=== PATIENT | male | born 1940 | race Caucasian/White ===

== ENCOUNTER 2016-08-24 21:44 | Observation (INO) | payer OTHER ==
[~2016-08-24] VITALS: Ht 177.8 cm; Wt 116.6 kg
[~2016-08-24 21:44] MED LIST changes: -ALPR-412 PO; -APR50 PO; -CHOL2000 PO; -FAMO20TA12 PO; -FURO80TA63 PO; -IMDSR60 PO; -LSN5 PO; -MAGN500T4 PO; -MRLP17X PO; -POLY335019 PO; -POTA20TA16 PO
--- NOTE | 2016-08-24 22:44 | EMERGENCY ROOM VISIT NOTE ---
History Report prepared by Mavis: John Grover Under the Supervision of: Dr. Marry Torre D.O. First contact with patient: 22:16 Chief Complaint: CHEST PAIN Stated Complaint: CHEST PAIN History of Present Illness The patient is a 75 year old male who presents to the Emergency Room with complaints of worsening chest pains that began 6.5 hours prior to arrival. The patient states that the pain is concentrated in the center of his chest/ epigastric region. He also notes that he has been experiencing increased belching and flatulence throughout the day today as well. The patient took Pepto and Tums without relief. He has a history of heart failure and atrial fibrillation. He also made note of an episode of dizziness when he stood up to use the restroom, this dizziness resolved spontaneously. He also has a history of kidney failure, diabetes, and gastritis. He recently needed to start insulin due to his worsening diabetes. He had a cardiac echogram today, which was unchanged from his last visit. After his echogram he was advised to change his dosage of Lasix from 180 per day, to 120 per day. 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 Increased belching and flatulence. Review of Systems See HPI for pertinent positives & negatives. A total of 10 systems reviewed and were otherwise negative. Past Medical & Surgical Medical Problems: (1) Benign hypertension (2) Bilateral hearing loss (3) Chronic atrial fibrillation (4) Chronic myeloid leukemia, disease (5) Dizziness (6) Hearing disorder (7) Heart disease Surgical Problems: (1) S/P cholecystectomy Family History FH: cancer FH: gallbladder disease FH: heart disease FH: hypertension Hypertension Social History Smoking Status: Former Smoker Alcohol Use: none Drug Use: none Marital Status: Housing Status: lives with significant other Occupation Status: retired Current/Historical Medications Scheduled Allopurinol (Allopurinol), 300 MG PO DAILY Dabigatran Etexilate Mesylate (Pradaxa), 75 MG PO BID Furosemide (Lasix), 80 MG PO QAM Furosemide (Lasix), 40 MG PO QPM Hydralazine Hcl (Apresoline), 25 MG PO TID Insulin Aspart 70/30 (Novolog Mix 70/30), 30 UNITS SC BID Isosorbide Mononitrate Ext Rel (Imdur Ext Rel), 60 MG PO DAILY Levothyroxine Sodium (Levothyroxine Sodium), 75 MCG PO Q2D Levothyroxine Sodium (Levothyroxine Sodium), 50 MCG PO Q2D Lisinopril (Lisinopril), 2.5 MG PO DAILY Magnesium Oxide (Mg Supplement (Magnesium), 500 MG PO BID Metoprolol Succinate (Toprol Xl), 200 MG PO DAILY Potassium Ext Rel (Klor-Con), 40 MEQ PO BID Scheduled PRN Acetaminophen (Tylenol), 1,000 MG PO UD PRN for Pain Cyclobenzaprine Hcl (Flexeril), 10 MG PO DAILY PRN for prn Ipratropium-Albuterol (Combivent Respimat), 2 PUFFS INH Q6H PRN for SOB/Wheezing Zolpidem Tartrate (Zolpidem Tartrate), 5 MG PO HS PRN for nsomnia Allergies Coded Allergies: Adhesives (Verified Allergy, Unknown, RASH, 10/27/15) Latex1 -Allergic Contact Dermititis (Verified Adverse Reaction, Intermediate, BLISTERS SKIN, 10/27/15) Morphine (Verified Adverse Reaction, Intermediate, DELUSIONS, "LOSES TIME ", 10/27/15) STATED "HE SIAD HE WAS ABHISHEK THE EIGHT FOR THREE DAYS!" Physical Exam Vital Signs Date Time Temp Pulse Resp B/P Pulse Ox O2 Delivery O2 Flow Rate FiO2 08/25/16 00:39 88 22 127/69 94 08/25/16 00:34 89 16 94 08/25/16 00:29 93 19 94 08/25/16 00:24 89 18 95 08/25/16 00:09 91 17 94 08/25/16 00:04 93 26 95 08/24/16 23:59 88 16 94 08/24/16 23:58 129/68 08/24/16 23:54 90 21 96 08/24/16 23:49 88 15 93 08/24/16 23:44 86 20 128/69 96 Room Air 08/24/16 23:44 89 18 96 08/24/16 23:43 128/69 08/24/16 23:34 88 23 95 08/24/16 23:29 92 17 95 08/24/16 23:24 86 19 96 08/24/16 23:09 83 16 95 08/24/16 23:04 90 25 93 08/24/16 22:59 88 19 94 08/24/16 22:54 88 14 95 08/24/16 22:49 89 20 94 08/24/16 22:44 88 22 94 08/24/16 22:39 90 19 93 08/24/16 22:34 95 20 94 08/24/16 22:30 Room Air 08/24/16 22:29 89 15 94 08/24/16 22:24 97 17 94 08/24/16 22:19 90 18 95 08/24/16 22:19 85 08/24/16 21:51 36.9 89 20 126/59 95 Room Air Physical Exam HEENT: Head - normocephalic and atraumatic Pupils are equal, round, and reactive to light. Extraocular eye muscles are intact, and sclera are anicteric. Nose - moist nasal mucosa without discharge. Mouth - moist buccal mucosa. Oropharynx is nonerythematous and there is no tonsillar exudate or edema noted. Neck: Supple; no JVD, nuchal rigidity, cervical lymphadenopathy. Heart: Heart sounds irregularly irregular. There is a normal S1 and S2 with no murmurs, clicks, or gallops appreciated. Lungs: Lung sounds are distant and diminished in all lung sanches, with no wheezes, rales, or rhonchi. Abdomen: Soft, mild tenderness with palpation in the epigastrium, nondistended, with good bowel sounds. There are no palpable pulsatile masses or hepatosplenomegaly. There is no guarding, rigidity, or rebound noted. Extremities: There is trace edema in the lower extremities bilaterally. No evidence of cyanosis or clubbing. There are easily palpable peripheral pulses. Skin: warm and dry with good turgor and no rashes. Medical Decision & Procedures ER Provider Diagnostic Interpretation: Radiology results are stated below per my review: KUB: Significantly dilated loops of the bowel. No obvious signs of bowel obstruction. CHEST X-RAY: Significant cardiomegaly. Atelectasis of the right lung base. Compared to 08/27/2015. Vascular congestion appears to have improved. Laboratory Results 08/24/16 22:13 Red Blood Count 4.59, Mean Corpuscular Volume 96.5, Mean Corpuscular Hemoglobin 31.8, Mean Corpuscular Hemoglobin Concent 33.0, Mean Platelet Volume 11.4, Neutrophils (%) (Auto) 76.8, Lymphocytes (%) (Auto) 10.9, Monocytes (%) (Auto) 10.7, Eosinophils (%) (Auto) 0.6, Basophils (%) (Auto) 0.2, Neutrophils # (Auto ) 9.85, Lymphocytes # (Auto) 1.40, Monocytes # (Auto) 1.38, Eosinophils # (Auto ) 0.08, Basophils # (Auto) 0.03 08/24/16 22:13 Test 08/24/16 22:13 White Blood Count 12.84 K/uL (4.8-10.8) Red Blood Count 4.59 M/uL (4.7-6.1) Hemoglobin 14.6 g/dL (14.0-18.0) Hematocrit 44.3 % (42-52) Mean Corpuscular Volume 96.5 fL (80-100) Mean Corpuscular Hemoglobin 31.8 pg (25-34) Mean Corpuscular Hemoglobin Concent 33.0 g/dl (32-36) Platelet Count 181 K/uL (130-400) Mean Platelet Volume 11.4 fL (7.4-10.4) Neutrophils (%) (Auto) 76.8 % Lymphocytes (%) (Auto) 10.9 % Monocytes (%) (Auto) 10.7 % Eosinophils (%) (Auto) 0.6 % Basophils (%) (Auto) 0.2 % Neutrophils # (Auto) 9.85 K/uL (1.4-6.5) Lymphocytes # (Auto) 1.40 K/uL (1.2-3.4) Monocytes # (Auto) 1.38 K/uL (0.11-0.59) Eosinophils # (Auto) 0.08 K/uL (0-0.5) Basophils # (Auto) 0.03 K/uL (0-0.2) RDW Standard Deviation 50.7 fL (36.4-46.3) RDW Coefficient of Variation 14.5 % (11.5-14.5) Immature Granulocyte % (Auto) 0.8 % Immature Granulocyte # (Auto) 0.10 K/uL (0.00-0.02) Anion Gap 11.0 mmol/L (3-11) Est Creatinine Clear Calc Drug Dose 34.6 ml/min Estimated GFR () 29.7 Estimated GFR (Non- 25.6 BUN/Creatinine Ratio 30.2 (10-20) Calcium Level 9.3 mg/dl (8.5-10.1) Total Bilirubin 2.2 mg/dl (0.2-1) Direct Bilirubin 0.5 mg/dl (0-0.2) Aspartate Amino Transf (AST/SGOT) 49 U/L (15-37) Alanine Aminotransferase (ALT/SGPT) 55 U/L (12-78) Alkaline Phosphatase 96 U/L (45-117) Total Creatine Kinase 176 U/L (39-308) Creatine Kinase MB 0.8 ng/ml (0.5-3.6) Creatine Kinase MB Ratio 0.5 (0-3.0) Total Protein 7.5 gm/dl (6.4-8.2) Albumin 3.5 gm/dl (3.4-5.0) Lipase 175 U/L (73-393) Laboratory results per my review. Medications Administered Medications (Trade) Dose Ordered Sig/Isabella Route Start Time Stop Time Status Last Admin Dose Admin Lidocaine HCl (Viscous Lidocaine 2% Soln) 10 ml NOW STAT PO 08/24/16 23:57 08/24/16 23:59 DC 08/25/16 00:02 10 ML Al Hydroxide/Mg Hydroxide (Maalox Susp) 30 ml NOW STAT PO 08/24/16 23:57 08/24/16 23:59 DC 08/25/16 00:02 30 ML Ondansetron HCl (Zofran Inj) 4 mg NOW STAT IV 08/25/16 01:44 08/25/16 01:45 DC 08/25/16 02:08 4 MG Hydromorphone HCl (Dilaudid Inj) 2 mg NOW STAT IV 08/25/16 01:56 08/25/16 01:57 DC 08/25/16 02:08 2 MG Procedure GI cocktail Dilaudid Inj 2 mg IV ECG Indication: chest pain Rate (beats per minute): 92 Rhythm: normal sinus Findings: no acute ischemic change, no ectopy Change: Repeat ECG showed: still A fib, no ST segment elevation. ED Course 2221: Past medical records reviewed. The patient was evaluated in room B5. A complete history and physical exam was performed. A twelve-lead EKG was obtained. Laboratory studies were drawn as above. The patient was observing the personnel monitor and pulse oximeter. 2226: I reviewed the patient's lab work from his Echogram earlier today. These labs showed a BUN of 70, creatinine of 2.3, potassium of 3.1, and glucose of 180. 2345: I was informed by the nurse that the patient is now complaining about epigastric chest pain. She did a repeat ECG. The patient then began to belch frequently. The repeat ECG showed A fib, without st segment elevation. 2357: Maalox Susp 30 ml PO, Lidocaine HCl 10 ml PO 0000: I reassessed the patient at this time. He does have the frequently belching in the room. His epigastric pain has now worsened. He will receive a GI cocktail. He is going for a KUB now. 0140: The patient is still having significant epigastric and chest discomfort. He states that the GI cocktail did not help at all. 0156: Dilaudid Inj 2 mg IV 0205: Upon reevaluation, I discussed findings and results with the patient. He verbalized agreement of the treatment plan. I spoke with Dr. Powell of the [facility] Hospitalist Service. The patient will be evaluated for further management and care. Medical Decision The patient is a 75 year old male who presents to the Emergency Department with chest pains. Differential Diagnosis include: Gastritis, pancreatitis, CHF, aortic dissection , PE, ulcerative disease, GERD and cardiac ischemia. The patient's laboratory results showed: WBC count 12.8, stable H&H, potassium 3.2, BUN 72, creatinine 2.4, glucose 163, total bilirubin 2.2, direct bilirubin 0.5, AST 49, lipase 175. This is 75-year-old male patient who presents with epigastric discomfort and chest pain. He is also noted to have mild shortness of breath with talking. The patient has elevated BUN/creatinine with a significantly elevated BUN/ creatinine ratio. This is concerning for dehydration. Cardiology recommended that he decrease his dose of Lasix earlier today. However, the patient developed chest discomfort and epigastric discomfort this evening. I discussed the case with the [facility] Hospitalist and they will evaluate for further management. Consults Time Called: 0200 Consulting Physician: Dr. Andre James [facility] Returned Call: [phone] He will be evaluating the patient for further management. Impression Primary Impression: Atypical chest pain Additional Impression: Acute kidney injury Scribe Attestation The scribe's documentation has been prepared under my direction and personally reviewed by me in its entirety. I confirm that the note above accurately reflects all work, treatment, procedures, and medical decision making performed by me. Departure Information Dispostion Being Evaluated By Hospitalist Referrals Errol Julio M.D. (PCP) Patient Instructions My [facility] Problem Qualifiers
[2016-08-24] MEDS ORDERED: FURO80TA63 PO ×2 (22:54→23:42)
[2016-08-24] MEDS ORDERED: MAGN500T4 PO (22:58)
[2016-08-24 23:01] LABS: BASO % 0.2 %; BASO ABS # 0.03 K/uL (0-0.2); COMPLETE YES; EOS % 0.6 %; HEMATOCRIT 44.3 % (42-52); IG% 0.8 %; LYMPH % 10.9 %; MEAN CELL VOLUME 96.5 fL (80-100); MEAN CORPUSCULAR HEMOGLOBIN 31.8 pg (25-34); MEAN PLATELET VOLUME 11.4 fL (7.4-10.4); MONO % 10.7 %; NEUT % 76.8 %; PLATELET COUNT 181 K/uL (130-400); RED BLOOD COUNT 4.59 M/uL (4.7-6.1); WHITE BLOOD COUNT 12.84 K/uL (4.8-10.8)
[2016-08-24 23:10] LABS: BUN/CREATININE RATIO 30.2 (10-20); CALCIUM 9.3 mg/dl (8.5-10.1); CREATININE 2.4 mg/dl (0.60-1.40); POTASSIUM 3.2 mmol/L (3.5-5.1)
[2016-08-24 23:14] LABS: CKMB/CK RATIO 0.5 (0-3.0)
[2016-08-24] MEDS ORDERED: POTA20TA16 PO (23:44)
[2016-08-24] MEDS ORDERED: ALUMINUM/MAGNESIUM SUSP 30 ML UDC PO STA (23:57)
[2016-08-24] MEDS ORDERED: LIDOCAINE HCL 2% VISC SOLN 20 ML UDC PO STA (23:57)
[2016-08-25] VITALS (10 sets, daily range): BP systolic 99–143; BP diastolic 44–70; PULSE 70–91; TEMP 36.3–37.1; O2SAT 90–96; Ht 177.8 cm; Wt 116.6 kg
[2016-08-25] MEDS ORDERED: ONDANSETRON INJ 2 MG/ML 2 ML VIAL IV STA (01:44)
[2016-08-25] MEDS ORDERED: MoRPHine SULFATE 4 MG/ML 1 ML CARP\\VIAL IV STA (01:44)
[2016-08-25] MEDS ORDERED: HYDROmorphone INJ 2 MG/ML SYR/VIAL IV STA (01:56)
[2016-08-25] MEDS ORDERED: ALUMINUM/MAGNESIUM/SIMETH (MAALOX MAX) 30 ML UDC PO PRN (02:00)
[2016-08-25] MEDS ORDERED: POLYETHYLENE (MIRALAX) 17 GM PACK PO PRN (02:00)
[2016-08-25] MEDS ORDERED: MAGNESIUM HYDROXIDE SUSP 30 ML UDC PO PRN (02:00)
[2016-08-25] MEDS ORDERED: ACETAMINOPHEN 325 MG TAB PO PRN (02:00)
[2016-08-25] MEDS ORDERED: ONDANSETRON INJ 2 MG/ML 2 ML VIAL IV PRN (02:00)
--- NOTE | 2016-08-25 02:11 | History and Physical ---
History & Physical Date & Time of Service: Aug 25, 2016 at 02:02 Chief Complaint: Chest Pain Primary Care Physician: Errol Julio M.D. History of Present Illness Source: patient 75 y/o M with chronic AF, CKD 3, mild systolic dysfunction presenting with CP. Pt had an echo today and CP began shortly after. Described as central, nonradiating, persistent. No associated N/V, diaphoresis or SOB. Labs drawn prior to the echo also noted that his BUN/creat were elevated above baseline. He was instructed to cut down his lasix dose. Past Medical/Surgical History Medical Problems: (1) Benign hypertension Status: Chronic (2) Bilateral hearing loss Status: Chronic (3) Chronic atrial fibrillation Status: Chronic (4) Chronic myeloid leukemia, disease Status: Chronic (5) Hearing disorder Status: Chronic (6) Heart disease Nonischemic cardiomyopathy - echo in 2014 showing mild systolic dysfunction - repeat 08/24/15 reported unchanged Surgical Problems: (1) S/P cholecystectomy Status: Resolved Family History FH: cancer FH: gallbladder disease FH: heart disease FH: hypertension Hypertension Social History Smoking Status: Former Smoker Drug Use: none Marital Status: Housing status: lives with family, lives with significant other Occupational Status: retired Immunizations History of Influenza Vaccine: Yes Influenza Vaccine Date: Jun 03, 2011 History of Tetanus Vaccine?: Yes History of Pneumococcal: Yes Pneumococcal Date: Oct 01, 2010 History of Hepatitis B Vaccine: No Multi-Drug Resistant Organisms History of MDRO: No Allergies Coded Allergies: Adhesives (Verified Allergy, Unknown, RASH, 10/27/15) Latex1 -Allergic Contact Dermititis (Verified Adverse Reaction, Intermediate, BLISTERS SKIN, 10/27/15) Morphine (Verified Adverse Reaction, Intermediate, DELUSIONS, "LOSES TIME ", 10/27/15) STATED "HE SIAD HE WAS ABHISHEK THE EIGHT FOR THREE DAYS!" Home Medications Scheduled Allopurinol (Allopurinol), 300 MG PO DAILY Dabigatran Etexilate Mesylate (Pradaxa), 75 MG PO BID Furosemide (Lasix), 80 MG PO QAM Furosemide (Lasix), 40 MG PO QPM Hydralazine Hcl (Apresoline), 25 MG PO TID Insulin Aspart 70/30 (Novolog Mix 70/30), 30 UNITS SC BID Isosorbide Mononitrate Ext Rel (Imdur Ext Rel), 60 MG PO DAILY Levothyroxine Sodium (Levothyroxine Sodium), 75 MCG PO Q2D Levothyroxine Sodium (Levothyroxine Sodium), 50 MCG PO Q2D Lisinopril (Lisinopril), 2.5 MG PO DAILY Magnesium Oxide (Mg Supplement (Magnesium), 500 MG PO BID Metoprolol Succinate (Toprol Xl), 200 MG PO DAILY Potassium Ext Rel (Klor-Con), 40 MEQ PO BID Scheduled PRN Acetaminophen (Tylenol), 1,000 MG PO UD PRN for Pain Cyclobenzaprine Hcl (Flexeril), 10 MG PO DAILY PRN for prn Ipratropium-Albuterol (Combivent Respimat), 2 PUFFS INH Q6H PRN for SOB/Wheezing Zolpidem Tartrate (Zolpidem Tartrate), 5 MG PO HS PRN for nsomnia Review of Systems Constitutional: No chills, No fever, No sweats Eyes: No eye pain, No worsening of vision ENT: No hearing loss, No nasal symptoms, No unusual epistaxis Respiratory: No cough, No sputum, No wheezing Cardiovascular: + chest pain, No PND, No orthopnea Abdomen: No nausea, No pain, No vomiting Musculoskeletal: No joint pain, No muscle pain Genitourinary - Male: No dysuria, No hematuria, No urinary frequency Neurologic: No memory loss, No paralysis, No weakness Psychiatric: No anhedonism, No depression symptoms Endocrine: No fatigue Hematologic / Lymphatic: No abnormal bleeding/bruising Integumentary: No rash Allergic / Immunologic: No environmental allergies Physical Exam Vital Signs Date Time Temp Pulse Resp B/P Pulse Ox O2 Delivery O2 Flow Rate FiO2 08/25/16 00:39 88 22 127/69 94 08/25/16 00:34 89 16 94 08/25/16 00:29 93 19 94 08/25/16 00:24 89 18 95 08/25/16 00:09 91 17 94 08/25/16 00:04 93 26 95 08/24/16 23:59 88 16 94 08/24/16 23:58 129/68 08/24/16 23:54 90 21 96 08/24/16 23:49 88 15 93 08/24/16 23:44 86 20 128/69 96 Room Air 08/24/16 23:44 89 18 96 130/17 23:43 128/69 08/24/16 23:34 88 23 95 08/24/16 23:29 92 17 95 08/24/16 23:24 86 19 96 08/24/16 23:09 83 16 95 08/24/16 23:04 90 25 93 08/24/16 22:59 88 19 94 08/24/16 22:54 88 14 95 08/24/16 22:49 89 20 94 08/24/16 22:44 88 22 94 08/24/16 22:39 90 19 93 08/24/16 22:34 95 20 94 08/24/16 22:30 Room Air 08/24/16 22:29 89 15 94 08/24/16 22:24 97 17 94 08/24/16 22:19 90 18 95 08/24/16 22:19 85 08/24/16 21:51 36.9 89 20 126/59 95 Room Air General Appearance: WD/WN, no apparent distress Head: normocephalic, atraumatic Eyes: normal inspection, PERRL, EOMI ENT: normal ENT inspection, pharynx normal Neck: supple, no JVD Respiratory/Chest: chest non-tender, lungs clear, normal breath sounds, no respiratory distress, no accessory muscle use Cardiovascular: regular rate, rhythm, no edema, normal peripheral pulses Abdomen/GI: normal bowel sounds, non tender, soft Back: normal inspection Extremities/Musculoskelatal: normal inspection, no calf tenderness, normal capillary refill, no pedal edema, normal range of motion 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, no motor/sensory deficits, alert, normal mood/affect, normal reflexes, oriented x 3 Skin: normal color, warm/dry, no rash Lymphatic: no adenopathy Diagnostics Laboratory Results Results Past 24 Hours Test 08/24/16 22:13 Range/Units White Blood Count 12.84 4.8-10.8 K/uL Red Blood Count 4.59 4.7-6.1 M/uL Hemoglobin 14.6 14.0-18.0 g/dL Hematocrit 44.3 42-52 % Mean Corpuscular Volume 96.5 80-100 fL Mean Corpuscular Hemoglobin 31.8 25-34 pg Mean Corpuscular Hemoglobin Concent 33.0 32-36 g/dl Platelet Count 181 130-400 K/uL Mean Platelet Volume 11.4 7.4-10.4 fL Neutrophils (%) (Auto) 76.8 % Lymphocytes (%) (Auto) 10.9 % Monocytes (%) (Auto) 10.7 % Eosinophils (%) (Auto) 0.6 % Basophils (%) (Auto) 0.2 % Neutrophils # (Auto) 9.85 1.4-6.5 K/uL Lymphocytes # (Auto) 1.40 1.2-3.4 K/uL Monocytes # (Auto) 1.38 0.11-0.59 K/uL Eosinophils # (Auto) 0.08 0-0.5 K/uL Basophils # (Auto) 0.03 0-0.2 K/uL RDW Standard Deviation 50.7 36.4-46.3 fL RDW Coefficient of Variation 14.5 11.5-14.5 % Immature Granulocyte % (Auto) 0.8 % Immature Granulocyte # (Auto) 0.10 0.00-0.02 K/uL Sodium Level 138 136-145 mmol/L Potassium Level 3.2 3.5-5.1 mmol/L Chloride Level 96 98-107 mmol/L Carbon Dioxide Level 31 21-32 mmol/L Anion Gap 11.0 3-11 mmol/L Blood Urea Nitrogen 72 7-18 mg/dl Creatinine 2.40 0.60-1.40 mg/dl Est Creatinine Clear Calc Drug Dose 34.6 ml/min Estimated GFR () 29.7 Estimated GFR (Non- 25.6 BUN/Creatinine Ratio 30.2 10-20 Random Glucose 163 70-99 mg/dl Calcium Level 9.3 8.5-10.1 mg/dl Total Bilirubin 2.2 0.2-1 mg/dl Direct Bilirubin 0.5 0-0.2 mg/dl Aspartate Amino Transf (AST/SGOT) 49 15-37 U/L Alanine Aminotransferase (ALT/SGPT) 55 12-78 U/L Alkaline Phosphatase 96 45-117 U/L Total Creatine Kinase 176 39-308 U/L Creatine Kinase MB 0.8 0.5-3.6 ng/ml Creatine Kinase MB Ratio 0.5 0-3.0 Troponin I 0.033 0-0.045 ng/ml Total Protein 7.5 6.4-8.2 gm/dl Albumin 3.5 3.4-5.0 gm/dl Lipase 175 73-393 U/L EKG AF, L axis, RBBB Impression Assessment and Plan 75 y/o M with chronic AF, CKD 3, mild systolic dysfunction presenting with CP. Pt had an echo today and CP began shortly after. Described as central, nonradiating, persistent. No associated N/V, diaphoresis or SOB. Labs drawn prior to the echo also noted that his BUN/creat were elevated above baseline. He was instructed to cut down his Lasix dose. 1) CP - monitor on telemetry - trend troponin Cont B jono, Imdur - cardiology consulted for persistent pain in addition to likely need for Lasix adjustment 2) CKD - BUN/creat elevated above baseline - IVF overnight - trend BMP AM - hold Lasix, Lisinopril pending repeat labs 3) CHF - will need careful volume monitoring as we are providing IVF for renal impairment - cont Bblocker - Lisinopril held 4) AF - rate is controlled - cont Pradaxa, Metoprolol 5) CML - f/u as outpt 6) DM - sliding scale applied in hospital Total time for this admit including review of records, meds, labs, EKG - discussion with pt and ER attending - 32 min Fully anticoagulated with Pradaxa - full code Level of Care Telemetry Resuscitation Status FULL RESUSCITATION VTE Prophylaxis VTE Risk Assessment Done? Y/N: Yes Risk Level: Moderate Given or contraindicated: Other Anticoagulation
[2016-08-25] MEDS ORDERED: CYCLOBENZAPRINE HCL 10 MG TAB PO PRN (02:15)
[2016-08-25] MEDS ORDERED: ZOLPIDEM TARTRATE 5 MG TAB PO PRN (02:15)
[2016-08-25] MEDS ORDERED: IPRATROPIUM BROMIDE/ALBUTEROL respimat INH INH PRN (02:15)
[2016-08-25] MEDS ORDERED: IV FLUIDS COMPLETED PRN (03:00)
[2016-08-25] MEDS ORDERED: MoRPHine SULFATE 2 MG/ML CARP IV PRN (05:30)
[2016-08-25] MEDS ORDERED: ALUMINUM/MAGNESIUM SUSP 30 ML UDC PO PRN (05:30)
[2016-08-25] MEDS ORDERED: GLUCOSE 10 TABS/TUBE PO PRN (05:30)
[2016-08-25] MEDS ORDERED: DEXTROSE 50% 50 ML SYR IV PRN (05:30)
[2016-08-25] MEDS ORDERED: GLUCAGON FOR INJ 1 MG VIAL SQ PRN (05:30)
[2016-08-25] MEDS ORDERED: GLUCOSE 40% GEL 15 GM TUBE PO PRN (05:30)
[2016-08-25] MEDS ORDERED: MoRPHine SULFATE 2 MG/ML CARP ONE (05:33)
[2016-08-25] MEDS ORDERED: OXYCODONE HCL IR 5 MG TAB (IMMEDIATE RELEASE) ONE (05:54)
[2016-08-25] MEDS: NSS + 20MEQ KCL 1000ML 1,000 ML IV SCH ×2 (05:57→19:53)
[2016-08-25] MEDS ORDERED: LEVOTHYROXINE 75 MCG TAB PO SCH (06:00)
[2016-08-25] MEDS ORDERED: ALUMINUM/MAGNESIUM SUSP 30 ML UDC PO ONE (06:15)
[2016-08-25] MEDS ORDERED: OXYCODONE HCL IR 5 MG TAB (IMMEDIATE RELEASE) PO ONE (06:15)
--- NOTE | 2016-08-25 06:41 | DIAGNOSTIC IMAGING REPORT ---
CHEST 2 VIEWS ROUTINE CLINICAL HISTORY: Atypical chest pain and shortness of breath COMPARISON STUDY: The 2015 FINDINGS: The heart is enlarged. There is aortic tortuosity/ectasia. There is no overt failure. There are no pleural effusions. There is no focal pulmonary consolidation.[ IMPRESSION: Cardiomegaly and aortic tortuosity/ectasia. No evidence of acute parenchymal consolidation Electronically signed by: Uday Perdomo M.D. 08/25/2016 6:40 AM Dictated Date/Time: 08/25/2016 6:39 AM
--- NOTE | 2016-08-25 06:44 | DIAGNOSTIC IMAGING REPORT ---
KUB CLINICAL HISTORY: abd. Distension pain COMPARISON STUDY: 08/27/2015 FINDINGS: Nonobstructive bowel pattern. Atherosclerotic change and ectasia abdominal arterial vasculature unchanged. No secondary signs of free air. IMPRESSION: Chronic change. No acute process. Electronically signed by: Chirag Garcia M.D. 08/25/2016 6:43 AM Dictated Date/Time: 08/25/2016 6:42 AM
[2016-08-25] MEDS: INSULIN ASPART 100 UNITS/ML 3 ML PEN SC SCH ×4 (07:00→21:18)
[2016-08-25] MEDS: ALLOPURINOL 300 MG TAB PO SCH (08:39)
[2016-08-25] MEDS: METOPROLOL SUCC 50MG EXT REL TAB PO SCH (08:39)
[2016-08-25] MEDS: POTASSIUM CHLORIDE 20 MEQ TABCR PO SCH ×2 (08:39→21:15)
[2016-08-25] MEDS: ISOSORBIDE MONONITRATE 60 MG TABCR PO SCH (08:39)
[2016-08-25] MEDS: DABIGATRAN ELEXILATE 75 MG CAP PO SCH ×2 (08:39→21:15)
[2016-08-25 12:18] LABS: BUN/CREATININE RATIO 26.6 (10-20); CALCIUM 8.9 mg/dl (8.5-10.1); CREATININE 2.7 mg/dl (0.60-1.40); POTASSIUM 3.7 mmol/L (3.5-5.1)
[2016-08-25] MEDS: NITROGLYCERIN 0.4 MG SL PER TAB CHARGE SL PRN ×2 (13:01→13:33)
--- NOTE | 2016-08-25 13:14 | Cardiology Consultation ---
Cardiology Consultation Date of Consultation: Aug 25, 2016. Requesting Physician: Dr. Powell Attending Physician: Dr. Washington Reason for Consultation: Chest pain Pt evaluation today including: conversation w/ patient, physical exam, chart review, lab review, review of studies, review of inpatient medication list, conversation w/ attending History of Present Illness Mr. 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 Patient was recently seen in CHF clinic on 08/03/16 with 10 pound weight gain and evidence of hypervolemia on physical exam. His Lasix was increased to 80 mg twice daily, and patient also began taking metolazone 5 mg every 4-5 days. His weight returned to baseline with increased diuretics, however, when attempting to decrease Lasix dose back to 80 mg daily, his weight increased again, so he continued on the higher dose. He was seen in the clinic yesterday, and he was advised to decrease his Lasix dose back to 80 mg in the morning and 40 mg in the evening due to a rise in his creatinine to 2.3. A repeat echocardiogram was also performed, which preliminarily showed stable LV systolic function with an estimated ejection fraction of 45-50%. After leaving the clinic yesterday, he developed sharp, substernal chest discomfort which was non-radiating. He reports that the discomfort "feels like gas." He denies associated nausea, vomiting, diaphoresis, or shortness of breath. The discomfort has been constant in nature since that time, but he feels that the severity has mildly improved today. He currently denies shortness of breath, orthopnea, PND, or edema. He notes lightheadedness with standing quickly. He denies syncope or presyncope. He denies palpitations, abnormal bleeding, cerebrovascular symptoms, fevers, chills , cough, wheeze, or GI/ symptoms. Review of Systems: As noted in HPI. All other ROS otherwise negative. Family History FH: cancer FH: gallbladder disease FH: heart disease FH: hypertension Hypertension Mother with [place] in late 40s. Father with [place] in 50s. Social History Smoking Status: Former Smoker History of Alcohol Use: No He is with 3 living children. 2 of his children have . He is retired from [employer]. He quit smoking in 1980 (smoked for 20 years, up to 3-4 ppd) . He denies tobacco, alcohol, or recreational drug use. Allergies Coded Allergies: Adhesives (Verified Allergy, Unknown, RASH, 10/27/15) Latex1 -Allergic Contact Dermititis (Verified Adverse Reaction, Intermediate, BLISTERS SKIN, 10/27/15) Morphine (Verified Adverse Reaction, Intermediate, DELUSIONS, "LOSES TIME ", 10/27/15) STATED "HE SIAD HE WAS ABHISHEK THE EIGHT FOR THREE DAYS!" Medications Current Inpatient Medications Medications (Trade) Dose Ordered Sig/Isabella Route Start Time Stop Time Status Last Admin Dose Admin Acetaminophen (Tylenol Tab) 650 mg Q4H PRN PO 08/25/16 02:00 09/24/16 01:59 Magnesium Hydroxide (Milk Of Magnesia Susp) 30 ml Q12H PRN PO 08/25/16 02:00 09/24/16 01:59 Ondansetron HCl (Zofran Inj) 4 mg Q6H PRN IV 08/25/16 02:00 09/24/16 01:59 Nitroglycerin (Nitrostat Tab) 0.4 mg UD PRN SL 08/25/16 02:00 09/24/16 01:59 Polyethylene 17 gm 17 gm DAILY PRN PO 08/25/16 02:00 09/24/16 01:59 Potassium Chloride/Sodium Chloride (Nss + 20meq KCl 1000ml) 1,000 ml @ 125 mls/hr Q8H IV 08/25/16 05:30 08/25/16 17:29 08/25/16 05:57 125 MLS/HR Allopurinol (Zyloprim Tab) 300 mg DAILY PO 08/25/16 09:00 09/24/16 08:59 08/25/16 08:39 300 MG Cyclobenzaprine HCl (Flexeril Tab) 10 mg DAILY PRN PO 08/25/16 02:15 09/24/16 02:14 Dabigatran (Pradaxa Cap) 75 mg BID PO 08/25/16 09:00 09/24/16 08:59 08/25/16 08:39 75 MG Hydralazine HCl (Apresoline Tab) 25 mg TID PO 08/25/16 09:00 09/24/16 08:59 08/25/16 08:40 25 MG Albuterol/ Ipratropium (Combivent Respimat Inh) 2 puffs Q6H PRN INH 08/25/16 02:15 09/24/16 02:14 Isosorbide Mononitrate (Imdur Ext Rel Tab) 60 mg DAILY PO 08/25/16 09:00 09/24/16 08:59 08/25/16 08:39 60 MG Levothyroxine Sodium (Synthroid Tab) 50 mcg Q48H PO 08/26/16 06:00 09/25/16 05:59 Levothyroxine Sodium (Synthroid Tab) 75 mcg Q48H PO 08/25/16 06:00 09/24/16 05:59 08/25/16 05:57 75 MCG Metoprolol Succinate (Toprol Xl Tab) 200 mg DAILY PO 08/25/16 09:00 09/24/16 08:59 08/25/16 08:39 200 MG Potassium Chloride (Klor-Con Tab) 40 meq BID PO 08/25/16 09:00 09/24/16 08:59 08/25/16 08:39 40 MEQ Zolpidem Tartrate (Ambien Tab) 5 mg HS PRN PO 08/25/16 02:15 09/24/16 02:14 Insulin Aspart (novoLOG ASPART) SLIDING SCALE G... ACHS SC 08/25/16 07:00 09/24/16 06:59 Miscellaneous (Iv Fluids Completed) 1 ea PRN PRN N/A 08/25/16 03:00 08/25/17 02:59 Glucose (Glucose 40% Gel) 15-30 GRAMS 15 GRAMS... UD PRN PO 08/25/16 05:30 09/24/16 05:29 Glucose (Glucose Chew Tab) 4-8 Tablets 4 Tabl... UD PRN PO 08/25/16 05:30 09/24/16 05:29 Dextrose (Dextrose 50% 50ML Syringe) 25-50ML OF 50% DW IV FOR... UD PRN IV 08/25/16 05:30 09/24/16 05:29 Glucagon (Glucagon Inj) 1 mg UD PRN SQ 08/25/16 05:30 09/24/16 05:29 Al Hydroxide/Mg Hydroxide (Maalox Susp) 15 ml Q6H PRN PO 08/25/16 05:30 09/24/16 05:29 Physical Exam Vital Signs Past 12 Hours Date Time Temp Pulse Resp B/P Pulse Ox O2 Delivery O2 Flow Rate FiO2 08/25/16 12:00 36.7 84 16 143/68 90 08/25/16 08:41 36.7 91 16 99/64 96 Nasal Cannula 08/25/16 04:00 Nasal Cannula 2.0 08/25/16 03:02 37.1 91 18 104/69 94 Nasal Cannula 2.0 08/25/16 02:27 36.9 96 18 122/48 95 08/25/16 02:16 96 18 122/48 95 Room Air 08/25/16 02:14 86 Constitutional: Alert, oriented, in no acute distress HEENT: Head is atraumatic and normocephalic. EOMs intact. Sclera anicteric. Face is symmetric. No perioral cyanosis. Mucous membranes moist. Neck: Supple, thick neck but no appreciable JVD, no carotid bruits Pulmonary: Normal respiratory effort, clear to auscultation bilaterally Cardiac: Irregularly irregular rhythm, normal S1 and S2, no gallops, no rubs, no murmurs Extremities: Trace pretibial edema bilaterally. No clubbing or cyanosis. Pulses intact Abdomen: Obese. Normal bowel sounds, soft, non-tender, no abdominal mass palpated Skin: Normal skin color, turgor, and pigmentation, no rash, no skin lesions Neurological: Oriented to person, place, and time Data Laboratory Results: Last 24 Hours Test 08/24/16 22:13 08/25/16 04:23 08/25/16 06:39 08/25/16 11:31 White Blood Count 12.84 K/uL Red Blood Count 4.59 M/uL Hemoglobin 14.6 g/dL Hematocrit 44.3 % Mean Corpuscular Volume 96.5 fL Mean Corpuscular Hemoglobin 31.8 pg Mean Corpuscular Hemoglobin Concent 33.0 g/dl Platelet Count 181 K/uL Mean Platelet Volume 11.4 fL Neutrophils (%) (Auto) 76.8 % Lymphocytes (%) (Auto) 10.9 % Monocytes (%) (Auto) 10.7 % Eosinophils (%) (Auto) 0.6 % Basophils (%) (Auto) 0.2 % Neutrophils # (Auto) 9.85 K/uL Lymphocytes # (Auto) 1.40 K/uL Monocytes # (Auto) 1.38 K/uL Eosinophils # (Auto) 0.08 K/uL Basophils # (Auto) 0.03 K/uL RDW Standard Deviation 50.7 fL RDW Coefficient of Variation 14.5 % Immature Granulocyte % (Auto) 0.8 % Immature Granulocyte # (Auto) 0.10 K/uL Sodium Level 138 mmol/L Potassium Level 3.2 mmol/L Chloride Level 96 mmol/L Carbon Dioxide Level 31 mmol/L Anion Gap 11.0 mmol/L Blood Urea Nitrogen 72 mg/dl Creatinine 2.40 mg/dl Est Creatinine Clear Calc Drug Dose 34.6 ml/min Estimated GFR () 29.7 Estimated GFR (Non- 25.6 BUN/Creatinine Ratio 30.2 Random Glucose 163 mg/dl Calcium Level 9.3 mg/dl Total Bilirubin 2.2 mg/dl Direct Bilirubin 0.5 mg/dl Aspartate Amino Transf (AST/SGOT) 49 U/L Alanine Aminotransferase (ALT/SGPT) 55 U/L Alkaline Phosphatase 96 U/L Total Creatine Kinase 176 U/L Creatine Kinase MB 0.8 ng/ml Creatine Kinase MB Ratio 0.5 Troponin I 0.033 ng/ml 0.034 ng/ml Total Protein 7.5 gm/dl Albumin 3.5 gm/dl Lipase 175 U/L Magnesium Level 2.6 mg/dl Bedside Glucose 147 mg/dl 189 mg/dl Test 08/25/16 11:43 Sodium Level 135 mmol/L Potassium Level 3.7 mmol/L Chloride Level 95 mmol/L Carbon Dioxide Level 32 mmol/L Anion Gap 8.0 mmol/L Blood Urea Nitrogen 72 mg/dl Creatinine 2.70 mg/dl Est Creatinine Clear Calc Drug Dose 30.3 ml/min Estimated GFR () 25.7 Estimated GFR (Non- 22.2 BUN/Creatinine Ratio 26.6 Random Glucose 193 mg/dl Calcium Level 8.9 mg/dl Troponin I 0.032 ng/ml EKG: atrial fibrillation at 82 bpm. Left axis deviation. Cannot rule out anterior and inferior infarct. CXR: Cardiomegaly and aortic tortuosity/ectasia. No evidence of acute parenchymal consolidation. Telemetry: Atrial fibrillation with ventricular response rate 70-90s. Assessment & Plan ASSESSMENT/PLAN: 1. Chest discomfort: His discomfort is atypical in nature. Cardiac catheterization in 2011 demonstrated normal coronary arteries. Cardiac enzymes this admission have been negative and ECG shows no acute ischemic change. If his next set of cardiac enzymes is negative, would not pursue additional cardiovascular work-up at this time. Recommend evaluation for other, non- cardiac causes of the pain. 2. Idiopathic cardiomyopathy with chronic systolic CHF: He appears euvolemic currently. Recommend resuming Lasix 80 mg in the morning and 40 mg in the evening prior to discharge home. He should avoid Metolazone given his renal function. He is scheduled follow-up in CHF clinic in 2 weeks with labs to be done at that time for monitoring of his renal function and electrolytes. Continue Metoprolol succinate 200 mg daily. Agree with holding Lisinopril until his renal function stabilizes. Low sodium diet and daily weights recommended. 3. Permanent atrial fibrillation: His rate has been well controlled, and he is asymptomatic. Continue beta jono therapy for rate control. Continue Pradaxa for thromboembolic prophylaxis. 4. Hypertension: BP adequately controlled. Continue current antihypertensive regimen. Thank you for allowing us to see this patient in consultation. The patient was discussed with Dr. Washington, and the plan was made in collaboration with him. Dr. Washington Addendum: Patient seen and examined. Agree with assessment and plan as outlined by RIKA Clark. Briefly, Mr. Olvera is a 75 year old man followed in the heart failure clinic. He was admitted with more than 12 hours of burning chest pain. ECG and cardiac enzymes unremarkable. Pain per patient similar to prior pain experienced with his prior gastritis/hiatal hernia. Pain largely resolved after GI cocktail. Suspect current chest pain is non-cardiac. No additional cardiac testing felt necessary at this time.
[2016-08-25] MEDS ORDERED: LORAZEPAM 0.5 MG TAB PO STA (19:34)
[2016-08-26 03:45] VITALS: BP 122/68; PULSE 91; TEMP 36.9; O2SAT 90
[2016-08-26] MEDS ORDERED: LEVOTHYROXINE 50 MCG TAB PO SCH (06:00)
[2016-08-26] MEDS: INSULIN ASPART 100 UNITS/ML 3 ML PEN SC SCH (07:00)
[2016-08-26 07:13] LABS: BUN/CREATININE RATIO 28.5 (10-20); CALCIUM 8.6 mg/dl (8.5-10.1); CREATININE 2.4 mg/dl (0.60-1.40); MAGNESIUM 2.6 mg/dl (1.8-2.4); POTASSIUM 3.9 mmol/L (3.5-5.1)
[2016-08-26 08:00] VITALS: BP 125/67; PULSE 94; TEMP 36.8; O2SAT 96
[2016-08-26] MEDS: DABIGATRAN ELEXILATE 75 MG CAP PO SCH (08:04)
[2016-08-26] MEDS: ISOSORBIDE MONONITRATE 60 MG TABCR PO SCH (08:04)
[2016-08-26] MEDS: METOPROLOL SUCC 50MG EXT REL TAB PO SCH (08:04)
[2016-08-26] MEDS: ALLOPURINOL 300 MG TAB PO SCH (08:04)
[2016-08-26] MEDS ORDERED: FAMOTIDINE 20 MG TAB PO SCH (09:00)
[2016-08-26] MEDS ORDERED: FUROSEMIDE 80 MG TAB PO SCH (09:00)
[2016-08-26] MEDS ORDERED: LISINOPRIL 2.5 MG TAB PO SCH (09:00)
[2016-08-26] MEDS ORDERED: MAGNESIUM OXIDE 400 MG TAB PO SCH (09:00)
[2016-08-26] MEDS ORDERED: MRLP17X PO (10:10)
[2016-08-26] MEDS ORDERED: ALPR-412 PO (10:10)
[2016-08-26] MEDS ORDERED: FAMO20TA12 PO (10:10)
--- NOTE | 2016-08-26 10:11 | Discharge Instructions ---
Discharge Instructions Admission Reason for Admission: Atypical Chest Pain Discharge Discharge Diagnosis / Problem: atypicla chest pain Discharge Goals Goal(s): Decrease discomfort, Improve function, Increase independence, Improve disease control, Improve nutritional status, Learn about illness, Therapeutic intervention, Prevent Disease Progression, Specific goals Activity Recommendations Activity Limitations: resume your previous activity Exercise/Sports Limitations: none May Resume Sexual Activity: when tolerated Shower/Bathe: no limitations Driving or Machine Use: no limitations . Instructions / Follow-Up Instructions / Follow-Up you have atypical chest pain , likely from gastritis/hiatal hernia. 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 - call your primary care physician OR go to local emergency room if has any fever/chill, chest pain, shortness of breathing, nausea/vomiting/abdominal pain , facial droop/slurry speech/local weakness, or if has any questions. - fall precaution - diet as instructed - you need to follow up with your subspecialist - you should understand that it is important to follow up the above instruction , and "not following the above instruction" may cause delayed or missed care of your medical conditions which may cause permanent organ damage and even . Current Hospital Diet Patient's current hospital diet: AHA Diet (Heart Healthy), Diabetes Type 2 Diet Discharge Diet Recommended Diet: Diabetes Type 2 Diet Procedures Procedures Performed: no Pending Studies Studies pending at discharge: no Laboratory Results Hemoglobin A1c Test 05/28/16 13:26 Range/Units Estimated Average Glucose 154 mg/dl Hemoglobin A1c 7.0 H 4.5-5.6 % Lipid Panel Test 05/28/16 13:26 Range/Units Triglycerides Level 129 0-150 mg/dl Cholesterol Level 137 0-200 mg/dl HDL Cholesterol 60 mg/dl Cholesterol/HDL Ratio 2.3 LDL Cholesterol, Calculated 51 mg/dl Medical Emergencies . Who to Call and When: Medical Emergencies: If at any time you feel your situation is an emergency, please call 911 immediately. . Non-Emergent Contact Non-Emergency issues call your: Primary Care Provider, Diaper Machine Tender . . "Provider Documentation" section prepared by Malachi Lozoya. VTE Core Measure Inpt VTE Proph given/why not?: Other Anticoagulation
[2016-08-26 10:17] VITALS: BP 125/67; PULSE 94; TEMP 36.8; O2SAT 96
--- NOTE | 2016-08-26 10:22 | Discharge Summary ---
Discharge Summary Admission Date: Aug 25, 2016 at 01:59 Discharge Date: Aug 26, 2016 Discharge Disposition: Home Principal Diagnosis: atypical chest pain , likely from gastritis/hiatal hernia. 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 New Medications: Alprazolam (Alprazolam) 0.25 Mg Tab 1 TAB PO TID PRN for panic attack for 5 Days, #6 TAB Famotidine (Famotidine) 20 Mg Tab 20 MG PO BID for 14 Days, #28 TAB Polyethylene (Miralax) 17 Gm Pow 17 GM PO DAILY PRN for Constipation for 14 Days Continued Medications: Acetaminophen (Tylenol) 500 Mg Tab 1000 MG PO UD PRN for Pain, TAB Allopurinol (Allopurinol) 300 Mg Tab 300 MG PO DAILY Cyclobenzaprine Hcl (Flexeril) 10 Mg Tab 10 MG PO DAILY PRN for prn, TAB Dabigatran Etexilate Mesylate (Pradaxa) 150 Mg Cap 75 MG PO BID Furosemide (Lasix) 80 Mg Tab 80 MG PO QAM, TAB Furosemide (Lasix) 80 Mg Tab 40 MG PO QPM Hydralazine Hcl (Apresoline) 25 Mg Tab 25 MG PO TID, TAB Insulin Aspart 70/30 (Novolog Mix 70/30) Susp 30 UNITS SC BID Ipratropium-Albuterol (Combivent Respimat) 1 Aer Aer 2 PUFFS INH Q6H PRN for SOB/Wheezing, INH Isosorbide Mononitrate Ext Rel (Imdur Ext Rel) 60 Mg Ertab 60 MG PO DAILY Levothyroxine Sodium (Levothyroxine Sodium) 75 Mcg Tab 75 MCG PO Q2D Levothyroxine Sodium (Levothyroxine Sodium) 50 Mcg Tab 50 MCG PO Q2D Lisinopril (Lisinopril) 2.5 Mg Tab 2.5 MG PO DAILY Magnesium Oxide (Mg Supplement (Magnesium) 500 Mg Tab 500 MG PO BID Metoprolol Succinate (Toprol Xl) 200 Mg Tab 200 MG PO DAILY Potassium Ext Rel (Klor-Con) 20 Meq Tabcr 40 MEQ PO BID, TAB Zolpidem Tartrate (Zolpidem Tartrate) 5 Mg Tab 5 MG PO HS PRN for nsomnia for 30 Days, #30 TAB Discharge Exam doing well. Review of Systems: Constitutional: No chills, No fatigue, No fever, No problem reported, No sweats, No weakness, No weight loss Eyes: No diplopia, No discharge, No eye pain, No problem reported, No redness, No worsening of vision ENT: No dental problems, No hearing loss, No nasal symptoms, No problem reported, No sore throat, No tinnitus, No trouble swallowing, No unusual epistaxis Respiratory: No cough, No dyspnea at rest, No dyspnea on exertion, No hemoptysis, No problem reported, No shortness of breath, No sputum, No wheezing Cardiovascular: No PND, No chest pain, No claudication, No edema, No orthopnea, No palpitations, No problem reported Abdomen: No GI bleeding, No constipation, No diarrhea, No nausea, No pain, No problem reported, No vomiting Musculoskeletal: No calf pain, No joint pain, No muscle pain, No problem reported, No swelling Genitourinary - Male: No dysuria, No hematuria, No impotence, No lesions, No penile discharge, No problem reported, No urinary frequency, No urinary hesitancy, No urinary incontinence, No urinary retention, No urinary urgency Neurologic: No balance problems, No memory loss, No numbness/tingling, No paralysis, No problem reported, No vertigo, No weakness Psychiatric: No anhedonism, No anxiety, No depression symptoms, No insomnia , No problem reported, No substance abuse Endocrine: No excessive thirst, No excessive urination, No fatigue, No problem reported Hematologic / Lymphatic: No abnormal bleeding/bruising, No clotting problems , No night sweats, No problem reported, No swollen lymph nodes Integumentary: No bleeding, No color change, No itch, No new/changing skin lesions, No problem reported, No rash Physical Exam: General Appearance: WD/WN, + obese Eyes: normal inspection, PERRL, EOMI ENT: normal ENT inspection, hearing grossly normal, TMs normal Neck: supple, no adenopathy, thyroid normal Respiratory/Chest: chest non-tender, + decreased breath sounds Cardiovascular: regular rate, rhythm, no edema, no gallop, no JVD, no murmur Abdomen / GI: normal bowel sounds, non tender, soft, no organomegaly, no pulsatile mass Extremities: normal inspection, no calf tenderness, no pedal edema Neurologic/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 A repeat echocardiogram was also performed, which preliminarily showed stable LV systolic function with an estimated ejection fraction of 45-50%. reported discomfort "feels like gas." Prior to the emergency room visit, Cardiac enzyme troponin was negative, EKG not remarkable, skirt clipper saw patient, feel is atypical chest pain, do not need any further evaluation in the hospital however possible need outpatient stress test, patient is chest pain- free today, we'll discharge home Atypical chest pain likely because of hiatal hernia and acid reflux, is totally resolved, I'm giving him Pepcid to home for 2 week, PCP please follow-up Report has panic attack last night, got one dose of Ativan, and then had a good sleep, doing well this morning, For his other medical conditions, such as idiopathy cardiomyopathy (EF 25% in 2012, now 45-50%), chronic atrial fibrillation, chronic type B aortic dissection, insulin dependent diabetes mellitus, CKD, and CML There is no medicine changes Report has panic attack once at home, and had another episodes last night in the hospital, I give By mouth as needed, PCP please follow-up Discharge instruction - you need to follow up with your primary care physician in 1 week, - call your pcp if have chest pain, sob, palpitation, or if has any questions - take medication as instructed, never overdose or any misuse, or take with alcohol, because misuse of medicine may cause organ damage or , call your primary care physician if have questions of medicaitons. - call your primary care physician OR go to local emergency room if has any fever/chill, chest pain, shortness of breathing, nausea/vomiting/abdominal pain , facial droop/slurry speech/local weakness, or if has any questions. - fall precaution - diet as instructed - you need to follow up with your subspecialist - you should understand that it is important to follow up the above instruction , and "not following the above instruction" may cause delayed or missed care of your medical conditions which may cause permanent organ damage and even . Total Time Spent: Less than 30 minutes This includes examination of the patient, discharge planning, medication reconciliation, and communication with other providers. Discharge Instructions Please refer to the electronic Patient Visit Report (Discharge Instructions) for additional information. Additional Copies To Louis Wolf M.D.; Errol Julio M.D.
[2016-08-26] MEDS ORDERED: FUROSEMIDE 40 MG TAB PO SCH (18:00)
== END 2016-08-26 11:58 | disposition home or self-care (01) ==
LOC: ENRESERVTM → ENRESERVDT → C.EDB 21:46 → C.2E 08-25 01:59
PROVIDERS: ADMIT Internal Medicine; ATTEND Hospitalist
DX: R07.89 Other chest pain (principal); N17.9 Acute kidney failure, unspecified; I42.9 Cardiomyopathy, unspecified; I50.22 Chronic systolic (congestive) heart failure; E11.9 Type 2 diabetes mellitus without complications; C92.10 Chronic myeloid leukemia, BCR/ABL-positive, not having achieved remission; I48.2 Chronic atrial fibrillation; N18.3 Chronic kidney disease, stage 3 (moderate); I12.9 Hypertensive chronic kidney disease with stage 1 through stage 4 chronic kidney disease, or unspecified chronic kidney disease; Z91.040 Latex allergy status; Z79.4 Long term (current) use of insulin; Z88.5 Allergy status to narcotic agent; Z87.891 Personal history of nicotine dependence; Z90.49 Acquired absence of other specified parts of digestive tract; Z82.49 Family history of ischemic heart disease and other diseases of the circulatory system; Z83.3 Family history of diabetes mellitus

== ENCOUNTER → 2016-08-24 | Outpatient (CLI) | payer OTHER ==
[~2016-08-24] MED LIST: ALL300 PO; ALPR-412 PO; APR25 PO; APR50 PO; CHOL2000 PO; CYCL10TA6 PO; DABI150C PO; FAMO20TA12 PO; FURO80TA63 PO; IMDSR60 PO; IPRA1AER2 INH; ISOS60TA25 PO; LEVO50TA6 PO; LEVO75TA5 PO; LSN25 PO; LSN5 PO; MAGN400T6 PO; MAGN500T4 PO; METO1TAB70 PO; METO2.5T PO; MRLP17X PO; NVLGI7030 SC; POLY335019 PO; POTA20TA16 PO; TYLOTC500 PO; ZOLP5TAB6 PO
[2016-08-24 12:04] LABS: BLOOD UREA NITROGEN 70 mg/dl (7-18); BUN/CREATININE RATIO 30.5 (10-20); CALCIUM 9.7 mg/dl (8.5-10.1); CARBON DIOXIDE 34 mmol/L (21-32); CHLORIDE 99 mmol/L (98-107); GLUCOSE 180 mg/dl (70-99); POTASSIUM 3.1 mmol/L (3.5-5.1); SODIUM 142 mmol/L (136-145)
== END | disposition home or self-care (01) ==
LOC: C.LAB1850 10:59
PROVIDERS: ATTEND Internal Medicine
DX: I50.22 Chronic systolic (congestive) heart failure (principal)

== ENCOUNTER → 2016-08-28 | Outpatient (CLI) | payer OTHER ==
[~2016-08-28] MED LIST changes: +ALPR-412 PO; +APR50 PO; +CHOL2000 PO; +FAMO20TA12 PO; +FURO80TA63 PO; +IMDSR60 PO; +LSN5 PO; -MAGN400T6 PO; +MAGN500T4 PO; -METO2.5T PO; +MRLP17X PO; +POLY335019 PO; +POTA20TA16 PO
[2016-08-28 18:24] LABS: BLOOD UREA NITROGEN 47 mg/dl (7-18); BUN/CREATININE RATIO 22.3 (10-20); CALCIUM 8.8 mg/dl (8.5-10.1); CARBON DIOXIDE 30 mmol/L (21-32); CHLORIDE 103 mmol/L (98-107); GLUCOSE 128 mg/dl (70-99); POTASSIUM 3.9 mmol/L (3.5-5.1); SODIUM 142 mmol/L (136-145)
== END | disposition home or self-care (01) ==
LOC: C.LABBFT 11:15
PROVIDERS: ATTEND Internal Medicine
DX: I50.22 Chronic systolic (congestive) heart failure (principal); N18.3 Chronic kidney disease, stage 3 (moderate)

== ENCOUNTER → 2016-09-28 | Outpatient (CLI) | payer OTHER ==
[~2016-09-28] MED LIST changes: -ALPR-412 PO
[2016-09-28 17:41] LABS: HEMATOCRIT 43.8 % (42-52); MEAN CELL VOLUME 95.2 fL (80-100); MEAN CORPUSCULAR HGB CONC 31.5 g/dl (32-36); MEAN PLATELET VOLUME 10.3 fL (7.4-10.4); PLATELET COUNT 335 K/uL (130-400)
[2016-09-28 17:45] LABS: URINE APPEARANCE CLEAR (CLEAR); URINE BILIRUBIN NEG (NEG); URINE COLOR YELLOW; URINE EPITHELIAL CELL AUTO 0-5 /lpf (0-5); URINE NITRITE NEG (NEG); URINE SPECIFIC GRAVITY 1.007 (1.000-1.030); UROBILINOGEN NEG (NEG)
[2016-09-28 17:46] LABS: BLOOD UREA NITROGEN 27 mg/dl (7-18); BUN/CREATININE RATIO 17.1 (10-20); CALCIUM 9.4 mg/dl (8.5-10.1); CARBON DIOXIDE 30 mmol/L (21-32); CHLORIDE 107 mmol/L (98-107); GLUCOSE 83 mg/dl (70-99); POTASSIUM 4.1 mmol/L (3.5-5.1); SODIUM 145 mmol/L (136-145)
[2016-09-28 17:51] LABS: MANUAL MICROSCOPIC REQUIRED? NO; REVIEW REQ? NO
[2016-09-28 17:59] LABS: URINE TOTAL PROTEIN 61.4 mg/dl (0-11.9)
[2016-09-28 18:00] LABS: CHOLESTEROL 108 mg/dl (0-200); CHOLESTEROL/HDL RATIO 2.4; HDL CHOLESTEROL 45 mg/dl; LDL CHOLESTEROL CALCULATED 42 mg/dl; TRIGLYCERIDES 107 mg/dl (0-150); VERY LOW DENSITY LIPOPROT CALC 21 mg/dl
[2016-09-29 07:23] LABS: ESTIMATED AVERAGE GLUCOSE 134 mg/dl; HA1C FLAG Normal (Normal)
== END | disposition home or self-care (01) ==
LOC: C.LABBFT 12:57
PROVIDERS: ATTEND Internal Medicine Nephrology
DX: I12.9 Hypertensive chronic kidney disease with stage 1 through stage 4 chronic kidney disease, or unspecified chronic kidney disease (principal); N18.3 Chronic kidney disease, stage 3 (moderate); D64.9 Anemia, unspecified; R80.9 Proteinuria, unspecified; E55.9 Vitamin D deficiency, unspecified; E11.21 Type 2 diabetes mellitus with diabetic nephropathy; E11.22 Type 2 diabetes mellitus with diabetic chronic kidney disease; E03.9 Hypothyroidism, unspecified

== ENCOUNTER 2016-10-20 05:45 | Inpatient (IN) | payer OTHER ==
[2016-10-20] VITALS (7 sets, daily range): BP systolic 150–179; BP diastolic 80–100; PULSE 77–95; TEMP 36.2–36.8; O2SAT 93–97; Ht 177.8 cm; Wt 114.0 kg
[~2016-10-20] VITALS: Ht 177.8 cm; Wt 114.0 kg
[~2016-10-20 05:45] MED LIST changes: -APR50 PO; -CHOL2000 PO; -IMDSR60 PO; -LSN5 PO; +METO-648 PO; -METO1TAB70 PO; -POLY335019 PO
[2016-10-20] MEDS ORDERED: HydrALAZINE HCL 20 MG/ML VIAL IV. STA (06:25)
[2016-10-20] MEDS ORDERED: ASPIRIN 81 MG CHEW PO STA (06:25)
[2016-10-20] MEDS ORDERED: POLY335019 PO (06:26)
[2016-10-20] MEDS ORDERED: CHOL2000 PO (06:26)
[2016-10-20] MEDS ORDERED: FUROSEMIDE 40 MG/4 ML VIAL IV STA ×2 (06:27→07:17)
[2016-10-20] MEDS ORDERED: NITROGLYCERIN OINT 2% 1GM PACKET EXT ONE (06:30)
--- NOTE | 2016-10-20 06:31 | DIAGNOSTIC IMAGING REPORT ---
CHEST ONE VIEW PORTABLE CLINICAL HISTORY: Shortness of breath COMPARISON STUDY: 08/24/2016 FINDINGS: The heart is enlarged. Bilateral subpulmonic pleural effusions are suspected. There is mild pulmonary vascular congestion. There are bilateral pulmonary airspace opacities.[ IMPRESSION: Cardiomegaly, bilateral pleural effusions, and bilateral pulmonary airspace opacities. Diagnostic considerations include bibasilar edema/atelectasis versus pneumonia. Clinical and radiographic follow-up is recommended. Electronically signed by: Uday Perdomo M.D. 10/20/2016 6:30 AM Dictated Date/Time: 10/20/2016 6:28 AM
[2016-10-20 06:37] LABS: POINT OF CARE TROPONIN I 0.01 ng/ml (0-0.045)
[2016-10-20 06:47] LABS: BUN/CREATININE RATIO 16.1 (10-20); CALCIUM 9.1 mg/dl (8.5-10.1); CREATININE 1.7 mg/dl (0.60-1.40); MAGNESIUM 2.2 mg/dl (1.8-2.4)
[2016-10-20 06:52] LABS: CKMB/CK RATIO 1.6 (0-3.0)
[2016-10-20 06:53] LABS: BASO % 0.3 %; BASO ABS # 0.03 K/uL (0-0.2); COMPLETE YES; EOS % 4.7 %; HEMATOCRIT 43.6 % (42-52); IG% 1.4 %; LYMPH % 9.5 %; LYMPH ABS # 0.87 K/uL (1.2-3.4); MEAN CELL VOLUME 93.8 fL (80-100); MEAN CORPUSCULAR HEMOGLOBIN 29.9 pg (25-34); MEAN CORPUSCULAR HGB CONC 31.9 g/dl (32-36); MEAN PLATELET VOLUME 10.4 fL (7.4-10.4); MONO % 9.8 %; NEUT % 74.3 %; PLATELET COUNT 222 K/uL (130-400); RED BLOOD COUNT 4.65 M/uL (4.7-6.1); WHITE BLOOD COUNT 9.18 K/uL (4.8-10.8)
[2016-10-20] MEDS ORDERED: LORAZEPAM 2 MG/ML 1 ML VIAL IV STA (07:17)
[2016-10-20] MEDS ORDERED: LABETALOL HCL IV 5 MG/ML 20ML IV STA (07:44)
--- NOTE | 2016-10-20 07:46 | EMERGENCY ROOM VISIT NOTE ---
History Report prepared by Mavis: Toño Monae Under the Supervision of: Dr. Sherry Murray M.D. First contact with patient: 06:01 Chief Complaint: SHORTNESS OF BREATH Stated Complaint: SHORT OF BREATH History of Present Illness The patient is a 75 year old male who presents to the Emergency Room with complaints of constant shortness of breath beginning 5.5 hours ago. He states that he developed a "sharp" chest pain after arriving to the ED as well. He used an inhaler at home today, but nothing has improved his symptoms. The patient states that he felt very nervous once his symptoms began and became very sweaty and nauseous. 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 He has a history of CHF and is on Lasix. The patient states that he does not recall missing any medication dosages recently. He notes that he has gained "a couple of pounds in a week". He states that he has had some increased leg swelling which began yesterday. Source of History: patient Onset: 5.5 hours ago Quality: other (shortness of breath) Timing: constant Modifying Factors (Relieving): other (none) Associated Symptoms: + chest pain ("sharp"), + diaphoresis, + nausea Note: The patient also complains of increased leg swelling. Review of Systems See HPI for pertinent positives & negatives. A total of 10 systems reviewed and were otherwise negative. Past Medical & Surgical Medical Problems: (1) Benign hypertension (2) Bilateral hearing loss (3) Chronic atrial fibrillation (4) Chronic myeloid leukemia, disease (5) Dizziness (6) Hearing disorder (7) Heart disease Surgical Problems: (1) S/P cholecystectomy Family History FH: cancer FH: gallbladder disease FH: heart disease FH: hypertension Hypertension Social History Smoking Status: Former Smoker Alcohol Use: none Drug Use: none Marital Status: Housing Status: lives with significant other Occupation Status: retired Current/Historical Medications Scheduled Allopurinol (Allopurinol), 300 MG PO DAILY Cholecalciferol (Vitamin D3), 1 CAP PO DAILY Dabigatran Etexilate Mesylate (Pradaxa), 75 MG PO BID Furosemide (Lasix), 80 MG PO QAM Furosemide (Lasix), 40 MG PO QPM Hydralazine Hcl (Apresoline), 25 MG PO TID Insulin Aspart 70/30 (Novolog Mix 70/30), 30 UNITS SC BID Isosorbide Mononitrate Ext Rel (Imdur Ext Rel), 60 MG PO DAILY Levothyroxine Sodium (Levothyroxine Sodium), 75 MCG PO Q2D Levothyroxine Sodium (Levothyroxine Sodium), 50 MCG PO Q2D Lisinopril (Lisinopril), 2.5 MG PO DAILY Magnesium Oxide (Mg Supplement (Magnesium), 500 MG PO BID Metoprolol Succinate (Toprol Xl), 200 MG PO DAILY Potassium Ext Rel (Klor-Con), 40 MEQ PO BID Scheduled PRN Acetaminophen (Tylenol), 1,000 MG PO UD PRN for Pain Ipratropium-Albuterol (Combivent Respimat), 2 PUFFS INH Q6H PRN for SOB/Wheezing Polyethylene Glycol 3350 (Miralax), 17 GM PO DAILY PRN for Constipation Zolpidem Tartrate (Zolpidem Tartrate), 5 MG PO HS PRN for nsomnia Allergies Coded Allergies: Adhesives (Verified Allergy, Unknown, RASH, 10/20/16) Latex1 -Allergic Contact Dermititis (Verified Adverse Reaction, Intermediate, BLISTERS SKIN, 10/20/16) Morphine (Verified Adverse Reaction, Intermediate, DELUSIONS, "LOSES TIME ", 10/20/16) STATED "HE SIAD HE WAS ABHISHEK THE EIGHT FOR THREE DAYS!" Physical Exam Vital Signs Date Time Temp Pulse Resp B/P Pulse Ox O2 Delivery O2 Flow Rate FiO2 10/20/16 07:27 249/139 10/20/16 07:26 206/140 10/20/16 07:18 96 20 227/112 95 Nasal Cannula 3.0 10/20/16 06:57 90 36 243/118 94 Nasal Cannula 3.0 10/20/16 06:57 94 Nasal Cannula 3.0 10/20/16 06:07 96 Nasal Cannula 3.0 10/20/16 06:07 36.2 82 22 198/99 96 Nasal Cannula 3.0 10/20/16 06:02 82 Physical Exam Vital signs reviewed. General: Well-appearing male, in no significant distress. HEENT: No scleral icterus, PERRLA, neck supple. Atraumatic. Cardiovascular: Regular rate and rhythm, no extra sounds. Pulmonary: Diminished breath sounds bilaterally with crackles near the apex. Abdomen: Soft, nontender, nondistended, positive bowel sounds. Musculoskeletal: Atraumatic. Pitting edema to the bilateral lower extremities. Neurologic: Patient awake alert and oriented x 3, full strength in all 4 extremities. Cranial nerves 2 through 12 grossly intact. Skin: Warm, dry, no rash Medical Decision & Procedures ER Provider Diagnostic Interpretation: X-ray results as stated below per interpretation by me and the radiologist: CHEST ONE VIEW PORTABLE FINDINGS: The heart is enlarged. Bilateral subpulmonic pleural effusions are suspected. There is mild pulmonary vascular congestion. There are bilateral pulmonary airspace opacities.[ IMPRESSION: Cardiomegaly, bilateral pleural effusions, and bilateral pulmonary airspace opacities. Diagnostic considerations include bibasilar edema/atelectasis versus pneumonia. Clinical and radiographic follow-up is recommended. Electronically signed by: Uday Perdomo M.D. Laboratory Results 10/20/16 06:05 Red Blood Count 4.65, Mean Corpuscular Volume 93.8, Mean Corpuscular Hemoglobin 29.9, Mean Corpuscular Hemoglobin Concent 31.9, Mean Platelet Volume 10.4, Neutrophils (%) (Auto) 74.3, Lymphocytes (%) (Auto) 9.5, Monocytes (%) (Auto) 9.8, Eosinophils (%) (Auto) 4.7, Basophils (%) (Auto) 0.3, Neutrophils # (Auto) 6.82, Lymphocytes # (Auto) 0.87, Monocytes # (Auto) 0.90, Eosinophils # (Auto) 0.43, Basophils # (Auto) 0.03 10/20/16 06:05 Test 10/20/16 06:05 10/20/16 06:17 White Blood Count 9.18 K/uL (4.8-10.8) Red Blood Count 4.65 M/uL (4.7-6.1) Hemoglobin 13.9 g/dL (14.0-18.0) Hematocrit 43.6 % (42-52) Mean Corpuscular Volume 93.8 fL (80-100) Mean Corpuscular Hemoglobin 29.9 pg (25-34) Mean Corpuscular Hemoglobin Concent 31.9 g/dl (32-36) Platelet Count 222 K/uL (130-400) Mean Platelet Volume 10.4 fL (7.4-10.4) Neutrophils (%) (Auto) 74.3 % Lymphocytes (%) (Auto) 9.5 % Monocytes (%) (Auto) 9.8 % Eosinophils (%) (Auto) 4.7 % Basophils (%) (Auto) 0.3 % Neutrophils # (Auto) 6.82 K/uL (1.4-6.5) Lymphocytes # (Auto) 0.87 K/uL (1.2-3.4) Monocytes # (Auto) 0.90 K/uL (0.11-0.59) Eosinophils # (Auto) 0.43 K/uL (0-0.5) Basophils # (Auto) 0.03 K/uL (0-0.2) RDW Standard Deviation 51.4 fL (36.4-46.3) RDW Coefficient of Variation 15.0 % (11.5-14.5) Immature Granulocyte % (Auto) 1.4 % Immature Granulocyte # (Auto) 0.13 K/uL (0.00-0.02) Anion Gap 6.0 mmol/L (3-11) Est Creatinine Clear Calc Drug Dose 50.1 ml/min Estimated GFR () 45.0 Estimated GFR (Non- 38.9 BUN/Creatinine Ratio 16.1 (10-20) Calcium Level 9.1 mg/dl (8.5-10.1) Magnesium Level 2.2 mg/dl (1.8-2.4) Total Bilirubin 0.6 mg/dl (0.2-1) Direct Bilirubin 0.2 mg/dl (0-0.2) Aspartate Amino Transf (AST/SGOT) 26 U/L (15-37) Alanine Aminotransferase (ALT/SGPT) 23 U/L (12-78) Alkaline Phosphatase 116 U/L (45-117) Total Creatine Kinase 85 U/L (39-308) Creatine Kinase MB 1.4 ng/ml (0.5-3.6) Creatine Kinase MB Ratio 1.6 (0-3.0) Total Protein 7.2 gm/dl (6.4-8.2) Albumin 2.9 gm/dl (3.4-5.0) Bedside Troponin I 0.010 ng/ml (0-0.045) NP-Nxf-I-Type Natriuretic Peptide 3995 pg/ml (0-900) Laboratory results per my review. Medications Administered Medications (Trade) Dose Ordered Sig/Isabella Route Start Time Stop Time Status Last Admin Dose Admin Nitroglycerin (Nitroglycerin 2% Oint) 1 inch NOW ONCE EXT 10/20/16 06:30 10/20/16 06:31 DC 10/20/16 06:52 1 INCH Hydralazine HCl (HydrALAZINE INJ) 10 mg NOW STAT IV. 10/20/16 06:25 10/20/16 06:27 DC 10/20/16 06:52 10 MG Aspirin (Aspirin Chew) 324 mg NOW STAT PO 10/20/16 06:25 10/20/16 06:27 DC 10/20/16 06:51 324 MG Furosemide (Lasix Inj) 40 mg NOW STAT IV 10/20/16 06:27 10/20/16 06:28 DC 10/20/16 06:52 40 MG ECG Indication: SOB/dyspnea Rate (beats per minute): 81 Rhythm: atrial fibrillation Findings: no acute ischemic change, other (previous anterolateral infarct) ED Course 0624: Past medical records reviewed. The patient was evaluated in room B9. A complete history and physical examination was performed. 0625: Ordered Aspirin 324 mg PO, Hydralazine HCl 10 mg IV, Lasix Inj 40 mg IV, Nitroglycerin 2% Oint 1 inch EXT. 0658: The patient was not able to keep the BiPAP mask on his face. 0722: I reassessed the patient. He is having increased trouble breathing, but declines any further breathing treatments. 0728: Upon reevaluation, the patient is resting comfortably. I discussed laboratory and radiographic results with him. He verbalized agreement of the treatment plan. I [place]oz[place] [facility] [place]. The patient will be evaluated for further management and care. Medical Decision Differential diagnosis: Etiologies such as infections, reactive airway disease, pneumonia, pneumothorax , COPD, CHF, cardiac ischemia, pulmonary embolism, musculoskeletal, gastrointestinal, as well as others were entertained. This pt was evaluated and appeared to be in no distress. IV access was obtained and lab work was drawn. Patient was placed on the corrections corporal. Chest x-ray is concerning for acute pulmonary edema/CHF. Patient was given topical nitroglycerin ointment. Patient was given aspirin 325 mg orally. Patient was given 10 mg of IV hydralazine and BiPAP was attempted. The patient initially was not able to tolerate it. He was given 1 mg of IV Ativan. Patient was informed of the need for respiratory support. We discussed the possibility of intubation for positive pressure ventilation. He decided to attempt the BiPAP mask again. Patient was then given additional 40 mg of IV Lasix, labetalol 10 mg IV for persistent hypertension. Patient's laboratory work reveals a creatinine of 1.7. Troponin is negative. The patient was able to tolerate the BiPAP with success. Dr. Lozoya of the hospitalist service was contacted. He requested critical care consultation. Dr. Kwong did evaluate the patient in the emergency department. Please refer to their notes for further details. Patient and are aware of the need for hospitalization and agree. Consults Time Called: [id number] Consulting Physician: Dr. Lozoya [place] Returned Call: [phone] I reviewed the patient's case with Dr. Lozoya. SHMUEL will evaluate the patient for further management. Dr. Lozoya recommends consulting the ICU as well for patient care. Additional Consults: Time Called: [id number] Consulted Physician: Dr. Kwong -ICU Returned Call: [phone] Additional Comments: I discussed the patient's case with Dr. Kwong. He will evaluate the patient. Impression Primary Impression: CHF (congestive heart failure) Critical Care I have personally spent greater than 60 minutes of critical care time in the direct management of this patient. This includes bedside care, interpretation of diagnostic studies, and testing, discussion with consultants, patient, and family members, and other required patient management activities. This 60 minutes is in excess of all separately billable procedures. Scribe Attestation The scribe's documentation has been prepared under my direction and personally reviewed by me in its entirety. I confirm that the note above accurately reflects all work, treatment, procedures, and medical decision making performed by me. Departure Information Dispostion Being Evaluated By Hospitalist Referrals Errol Julio M.D. (PCP) Patient Instructions My [facility] Problem Qualifiers Primary Impression: CHF (congestive heart failure) Congestive heart failure type: unspecified congestive heart failure type Congestive heart failure chronicity: acute Qualified Codes: I50.9 - Heart failure, unspecified
[2016-10-20] MEDS ORDERED: GLUCOSE 40% GEL 15 GM TUBE PO PRN (08:45)
[2016-10-20] MEDS ORDERED: GLUCAGON FOR INJ 1 MG VIAL SQ PRN (08:45)
[2016-10-20] MEDS ORDERED: ONDANSETRON INJ 2 MG/ML 2 ML VIAL IV PRN (08:45)
[2016-10-20] MEDS ORDERED: DEXTROSE 50% 50 ML SYR IV PRN (08:45)
[2016-10-20] MEDS ORDERED: POLYETHYLENE (MIRALAX) 17 GM PACK PO PRN (08:45)
[2016-10-20] MEDS ORDERED: ALUMINUM/MAGNESIUM/SIMETH (MAALOX MAX) 30 ML UDC PO PRN (08:45)
[2016-10-20] MEDS ORDERED: MAGNESIUM HYDROXIDE SUSP 30 ML UDC PO PRN (08:45)
[2016-10-20] MEDS ORDERED: GLUCOSE 10 TABS/TUBE PO PRN (08:45)
[2016-10-20] MEDS ORDERED: IPRATROPIUM BROMIDE/ALBUTEROL respimat INH INH PRN (08:45)
--- NOTE | 2016-10-20 09:33 | History and Physical ---
History & Physical Date & Time of Service: Oct 20, 2016 at 08:56 Chief Complaint: Short Of Breath Primary Care Physician: Errol Julio M.D. History of Present Illness Source: patient, spouse ( at bedside), clinic records, hospital records This is a 75 y/o male with a history of A. fib, systolic CHF, HTN, COPD, DM II, CKD stage III, CML (currently in remission), hypothyroidism, and gout who presented to the ED on 10/20 with sudden shortness of breath, sweating and nausea. Patient states that he woke up in the middle of the night feeling that he could not breathe. The patient also became diaphoretic with nausea. He reports vomiting a white substance. He states that he felt weak and fatigued and near syncopal but denies any loss of consciousness. The patient complains of orthopnea. He states that he had noticed increased swelling in his legs over the last few days and has gained 2 pounds in the last week. The patient has a history of chronic systolic CHF and takes Lasix at home. He states he's been taking his Lasix as prescribed. The patient denies any chest pain, pressure, tightness. He does complain of an intermittent crampy, right-sided abdominal pain when he tries to get up out of bed. Patient's states that they have been away from home visiting the patient's sister for the last 4 days. She reports that they were eating out a lot during their trip, and that the patient does not closely watch what he eats. The patient denies fevers, chills, chest pain, palpitations, claudication, cough, wheezing, dysuria, hematuria, urinary retention, paralysis, numbness and tingling. Past Medical/Surgical History Medical Problems: (1) Benign hypertension Status: Chronic (2) Bilateral hearing loss Status: Chronic (3) Chronic atrial fibrillation Status: Chronic (4) Chronic myeloid leukemia, disease Status: Chronic (5) Hearing disorder Status: Chronic Chronic systolic CHF COPD Diabetes mellitus type 2 CKD stage III Hypothyroidism. Gout Surgical Problems: (1) S/P cholecystectomy Status: Resolved Family History Diabetes mellitus FH: cancer FH: gallbladder disease FH: heart disease FH: hypertension Hypertension Stroke Social History Smoking Status: Former Smoker Smokeless Tobacco Use: No Alcohol Use: none Drug Use: none Marital Status: Housing status: lives with family, lives with significant other Occupational Status: retired Immunizations History of Influenza Vaccine: Yes Influenza Vaccine Date: Jun 03, 2011 History of Tetanus Vaccine?: Yes History of Pneumococcal: Yes Pneumococcal Date: Oct 01, 2010 History of Hepatitis B Vaccine: No Multi-Drug Resistant Organisms History of MDRO: No Allergies Coded Allergies: Adhesives (Verified Allergy, Unknown, RASH, 10/20/16) Latex1 -Allergic Contact Dermititis (Verified Adverse Reaction, Intermediate, BLISTERS SKIN, 10/20/16) Morphine (Verified Adverse Reaction, Intermediate, DELUSIONS, "LOSES TIME ", 10/20/16) STATED "HE SIAD HE WAS ABHISHEK THE EIGHT FOR THREE DAYS!" Home Medications Scheduled Allopurinol (Allopurinol), 300 MG PO DAILY Cholecalciferol (Vitamin D3), 1 CAP PO DAILY Dabigatran Etexilate Mesylate (Pradaxa), 75 MG PO BID Furosemide (Lasix), 80 MG PO QAM Furosemide (Lasix), 40 MG PO QPM Hydralazine Hcl (Apresoline), 25 MG PO TID Insulin Aspart 70/30 (Novolog Mix 70/30), 30 UNITS SC BID Isosorbide Mononitrate Ext Rel (Imdur Ext Rel), 60 MG PO DAILY Levothyroxine Sodium (Levothyroxine Sodium), 75 MCG PO Q2D Levothyroxine Sodium (Levothyroxine Sodium), 50 MCG PO Q2D Lisinopril (Lisinopril), 2.5 MG PO DAILY Magnesium Oxide (Mg Supplement (Magnesium), 500 MG PO BID Metoprolol Succinate (Toprol Xl), 200 MG PO DAILY Potassium Ext Rel (Klor-Con), 40 MEQ PO BID Scheduled PRN Acetaminophen (Tylenol), 1,000 MG PO UD PRN for Pain Ipratropium-Albuterol (Combivent Respimat), 2 PUFFS INH Q6H PRN for SOB/Wheezing Polyethylene Glycol 3350 (Miralax), 17 GM PO DAILY PRN for Constipation Zolpidem Tartrate (Zolpidem Tartrate), 5 MG PO HS PRN for nsomnia Review of Systems Constitutional: + fatigue, + sweats, + weakness, No chills, No fever Eyes: No diplopia, No eye pain, No worsening of vision ENT: No hearing loss, No sore throat, No trouble swallowing Respiratory: + dyspnea on exertion, + shortness of breath, No cough, No wheezing Cardiovascular: + PND, + edema, + orthopnea, No chest pain, No palpitations Abdomen: + nausea (resolved), + pain (intermittent), + vomiting (1 episode) Musculoskeletal: No calf pain, No joint pain, No muscle pain Genitourinary - Male: No dysuria, No hematuria, No urinary retention Neurologic: No numbness/tingling, No paralysis, No weakness Integumentary: No color change, No itch, No rash Physical Exam Vital Signs Date Time Temp Pulse Resp B/P Pulse Ox O2 Delivery O2 Flow Rate FiO2 10/20/16 08:36 86 28 156/83 95 BiPAP 10/20/16 08:11 98 28 172/79 96 BiPAP 10/20/16 07:53 96 26 199/118 99 BiPAP 10/20/16 07:27 249/139 10/20/16 07:26 206/140 10/20/16 07:18 96 20 227/112 95 Nasal Cannula 3.0 10/20/16 06:57 90 36 243/118 94 Nasal Cannula 3.0 10/20/16 06:57 94 Nasal Cannula 3.0 10/20/16 06:07 96 Nasal Cannula 3.0 10/20/16 06:07 36.2 82 22 198/99 96 Nasal Cannula 3.0 10/20/16 06:02 82 General Appearance: WD/WN, no apparent distress, + obese Head: normocephalic, atraumatic Eyes: PERRL, EOMI, + pertinent finding (acute conjunctivitis, R>L) ENT: normal ENT inspection, hearing grossly normal, + pertinent finding (on BIPAP) Neck: supple, trachea midline, + JVD Respiratory/Chest: no respiratory distress, + decreased breath sounds ( throughout), + wheezing (cardiac wheeze scattered) Cardiovascular: no gallop, no murmur, + irregularly irregular (rate controlled) Abdomen/GI: normal bowel sounds, soft, + tenderness (epigastric area TTP) Extremities/Musculoskelatal: normal inspection, no calf tenderness, + swelling (2+ pitting edema) Neurologic/Psych: alert, normal mood/affect, oriented x 3 Skin: normal color, warm/dry, no rash, + pertinent finding (non-diaphoretic during my exam) Diagnostics Laboratory Results Results Past 24 Hours Test 10/20/16 06:05 10/20/16 06:17 Range/Units White Blood Count 9.18 4.8-10.8 K/uL Red Blood Count 4.65 4.7-6.1 M/uL Hemoglobin 13.9 14.0-18.0 g/dL Hematocrit 43.6 42-52 % Mean Corpuscular Volume 93.8 80-100 fL Mean Corpuscular Hemoglobin 29.9 25-34 pg Mean Corpuscular Hemoglobin Concent 31.9 32-36 g/dl Platelet Count 222 130-400 K/uL Mean Platelet Volume 10.4 7.4-10.4 fL Neutrophils (%) (Auto) 74.3 % Lymphocytes (%) (Auto) 9.5 % Monocytes (%) (Auto) 9.8 % Eosinophils (%) (Auto) 4.7 % Basophils (%) (Auto) 0.3 % Neutrophils # (Auto) 6.82 1.4-6.5 K/uL Lymphocytes # (Auto) 0.87 1.2-3.4 K/uL Monocytes # (Auto) 0.90 0.11-0.59 K/uL Eosinophils # (Auto) 0.43 0-0.5 K/uL Basophils # (Auto) 0.03 0-0.2 K/uL RDW Standard Deviation 51.4 36.4-46.3 fL RDW Coefficient of Variation 15.0 11.5-14.5 % Immature Granulocyte % (Auto) 1.4 % Immature Granulocyte # (Auto) 0.13 0.00-0.02 K/uL Sodium Level 143 136-145 mmol/L Potassium Level 4.0 3.5-5.1 mmol/L Chloride Level 108 98-107 mmol/L Carbon Dioxide Level 29 21-32 mmol/L Anion Gap 6.0 3-11 mmol/L Blood Urea Nitrogen 27 7-18 mg/dl Creatinine 1.70 0.60-1.40 mg/dl Est Creatinine Clear Calc Drug Dose 50.1 ml/min Estimated GFR () 45.0 Estimated GFR (Non- 38.9 BUN/Creatinine Ratio 16.1 10-20 Random Glucose 138 70-99 mg/dl Calcium Level 9.1 8.5-10.1 mg/dl Magnesium Level 2.2 1.8-2.4 mg/dl Total Bilirubin 0.6 0.2-1 mg/dl Direct Bilirubin 0.2 0-0.2 mg/dl Aspartate Amino Transf (AST/SGOT) 26 15-37 U/L Alanine Aminotransferase (ALT/SGPT) 23 12-78 U/L Alkaline Phosphatase 116 45-117 U/L Total Creatine Kinase 85 39-308 U/L Creatine Kinase MB 1.4 0.5-3.6 ng/ml Creatine Kinase MB Ratio 1.6 0-3.0 Total Protein 7.2 6.4-8.2 gm/dl Albumin 2.9 3.4-5.0 gm/dl Bedside Troponin I 0.010 0-0.045 ng/ml [id number] Natriuretic Peptide 3995 0-900 pg/ml Diagnostic Radiology Reviewed the following studies and agree with interpretation as follows: Patient Name: JAMEEL BARCENAS Unit Number: [id number] Dictated: 10/20/16627 Transcribed: 10/20/16627 ARG Printed Date/Time: [~ rep prt dt]/[~ rep prt tm] [~ rep ct labl] - [~ rep ct ivnm] [facility] [place] [address] Dictated: 10/20/16627 Transcribed: 10/20/16627 ARG Printed Date/Time: [~ rep prt dt]/[~ rep prt tm] [~ rep ct labl] - [~ rep ct ivnm] Patient: JAMEEL BARCENAS Address1: [address] [place] [address] Rec: [id number] Address2: Acct ID: [id number] [facility] Zip: [place] [address] Date: 1940 Sex: M Room/Bed: Ref Phy: Errol Julio M.D. SC: LEOBARDO Att Phy: Report #: [id number] La Phy: Errol Julio M.D. Test: CXR1P Admit Phy: Fund Raiser: TRCAITLIN Interpreting Phy: Uday Perdomo M.D. Diagnosis: SHORT OF BREATH Ordering Phy: Sherry Murray M.D. Service Date: 10/20/16 Admit Date: 10/20/16 MNE: [id number] CONF: DICTATED BY: Uday Perdomo M.D.]] CC: Sherry Murray M.D. Shannon, Dennis, M.D. Endcc: [~ rep ct add3]] CHEST ONE VIEW PORTABLE CLINICAL HISTORY: Shortness of breath COMPARISON STUDY: 08/24/2016 FINDINGS: The heart is enlarged. Bilateral subpulmonic pleural effusions are suspected. There is mild pulmonary vascular congestion. There are bilateral pulmonary airspace opacities.[ IMPRESSION: Cardiomegaly, bilateral pleural effusions, and bilateral pulmonary airspace opacities. Diagnostic considerations include bibasilar edema/atelectasis versus pneumonia. Clinical and radiographic follow-up is recommended. Electronically signed by: Uday Perdomo M.D. 10/20/2016 6:30 AM Dictated Date/Time: 10/20/2016 6:28 AM The status of this report is Signed. Draft = Not yet reviewed or approved by Radiologist. Signed = Reviewed and approved by Radiologist. <AttendingPhy></AttendingPhy> <FamilyPhy>Errol Julio M.D.</FamilyPhy> < PrimaryPhy>Errol Julio M.D.</PrimaryPhy> <UnitNumber>[id number]</UnitNumber > <VisitNumber>[id number]</VisitNumber> <PatientName>JAMEEL BARCENAS</ PatientName> <DateOfBirth>1940</DateOfBirth> <Location>C.EDB</Location> < ServiceDate>10/20/16</ServiceDate> <MNE>ESINDI</MNE> <OrderingPhy>Sherry Murray M.D.</OrderingPhy> <OrderingPhyMNE>f rep ord dr mcwilliams</OrderingPhyMNE> < DictatingPhyMNE>f rep dict dr mcwilliams</DictatingPhyMNE> <CCListMNE>f rep ct mne</ CCListMNE> <AdmittingPhyMNE>f pt admit dr mcwilliams</AdmittingPhyMNE> <AttendingPhyMNE >f pt attend dr mcwilliams</AttendingPhyMNE> <ConsultingPhyMNE>f pt consult dr mcwilliams</ConsultingPhyMNE> <FamilyPhyMNE>f pt fam dr mcwilliams</FamilyPhyMNE> <OtherPhyMNE>f pt other dr mcwilliams</OtherPhyMNE> < PrimaryPhyMNE>f pt prim care dr mcwilliams</PrimaryPhyMNE> <ReferringPhyMNE>f pt referring dr mcwilliams</ReferringPhyMNE> EKG Reviewed EKG and agree with interpretation as follows: 81 bpm, a-fib Impression Assessment and Plan 75 y/o male with a history of A. fib, systolic CHF, HTN, COPD, DM II, CKD stage III, CML (currently in remission), hypothyroidism, and gout who presented to the ED on 10/20 with sudden shortness of breath, sweating and nausea. Per patient's , they had been away from home the last 4 days visiting the patient's sister. The states that they had been eating out, and the patient does not necessarily watch what he eats. Patient arrived to ED hypertensive and hypoxic and was placed on nasal cannula. Patient does not wear supplemental oxygen at home. BP up to 249/139. The patient was given a total of 80 mg Lasix IV and did have good urine output per . The patient was also given 10 mg of hydralazine and 10 mg of labetalol for his blood pressure, which did improve to 156/83. Patient placed on BiPAP and reports feeling much better. Acute on chronic systolic CHF, acute respiratory failure with hypoxia--last echocardiogram per outpatient and hospital records in 2011 showed LVEF of 25-30% -Admit to telemetry -Continue BiPAP -Echocardiogram -Lasix 80 mg IV BID17. Patient received total of 80 mg this morning in the ED, will give another 80 mg at 1700 -Continue Imdur 60 mg PO qd -Daily weights -Strict I's & O's Atrial fibrillation--currently rate controlled -Cardiac monitoring on telemetry -EKGs q am and prn with chest pain -Continue metoprolol succinate 200 mg PO qd -Continue Pradaxa 75 mg PO BID HTN--now stable at 156/83 -Continue hydralazine 25 mg PO TID and lisinopril 2.5 mg PO qd COPD -Continue Combivent inhaler prn Diabetes mellitus type 2--last hemoglobin A1c checked 3/6/17 was 6.3 -Hold home NovoLog -Insulin sliding scale -Check BSGs q ac and qhs CKD stage III--stable -Baseline creatinine 1.[address] Zavaleta's records -Creatinine 1.7 upon arrival -Continue to monitor Hypothyroidism -Continue Synthroid 50 mcg and 75 mcg PO alternating every other day Gout -Continue allopurinol 300 mg PO qd Acute conjunctivitis -Started on tobramycin drops as outpatient, will continue DVT prophylaxis -Pradaxa -ROSEMARIE damon and TOSHIAs Code Status -Level I, FULL RESUSCITATION STATUS This chart was completed in part utilizing [employer] Speech Voice Recognition software. Attempts were made to minimize the grammatical errors, random word insertions, pronoun errors and incomplete sentences. Any formal questions or concerns about the content, text or information contained within the body of this dictation should be directly addressed to the provider for clarification. Level of Care Telemetry Resuscitation Status FULL RESUSCITATION VTE Prophylaxis VTE Risk Assessment Done? Y/N: Yes Risk Level: Moderate Given or contraindicated: Other Anticoagulation (Pradaxa), T.E.D. Kishor, SCD's Note Attending Admission Note & Attestation: Pt seen/examined, chart reviewed, care plan d/w RIKA Saenz. I agree w/ the pemberton components of her admission documentation. 75yo male with known chronic systolic CHF, a. fib, TAMIKA, HTN, COPD - presenting with acute consent of dyspnea. +weight gain last few days associated with abdominal girth increase/bloating and LE edema. In ER found to be in acute respiratory distress and markedly hypertensive. Rx for CHF and uncontrolled HTN in ER. I saw the patient on the telemetry unit and by the time of my eval he was feeling better with less dyspnea. PMH, PSH, allergies, meds, sochx, famhx, ros - reviewed gen - mildly dyspneic while telling me his history neck - JVD sitting upright at 90 degrees heart - irregular, s1, s2 lungs - decreased BS bases, end-exp wheezes b/l, slight crackles bases abd - soft ext - 1-2+ edema b/l labs Cr 1.7 BNP elevated EKG - a. fib, no ST changes cxr - bibasilar infiltrates A/P: 75yo male with a. fib, chronic systolic CHF, HTN, COPD, DM II, CKD stage III, CML (currently in remission), hypothyroidism, and gout. Presenting with acute/chronic systolic CHF with resulting acute hypoxic respiratory failure. Diurese with lasix 80 IV BID. BIPAP has already been weaned off to NC. Daily BMP. Most recent TSH (a few weeks ago) was normal. Cont BB. Needs better BP control - increase imdur to 60mg BID. Cont pradaxa for anticoagulation for a. fib. ECHO ordered to reassess LV function, valves, etc. time 70 min Khang Valentino MD
[2016-10-20] MEDS: POTASSIUM CHLORIDE 20 MEQ TABCR PO SCH ×2 (10:43→20:55)
[2016-10-20] MEDS: ISOSORBIDE MONONITRATE 60 MG TABCR PO SCH (10:44)
[2016-10-20] MEDS: ALLOPURINOL 300 MG TAB PO SCH (10:44)
[2016-10-20] MEDS: METOPROLOL SUCC 50MG EXT REL TAB PO SCH (10:44)
[2016-10-20] MEDS: LISINOPRIL 2.5 MG TAB PO SCH (10:45)
[2016-10-20] MEDS: LEVOTHYROXINE 50 MCG TAB PO SCH (11:40)
[2016-10-20] MEDS: DABIGATRAN ELEXILATE 75 MG CAP PO SCH ×2 (11:41→20:55)
[2016-10-20] MEDS: CHOLECALCIFEROL 1000 INTER.UNIT TAB PO SCH (11:41)
[2016-10-20] MEDS: MAGNESIUM OXIDE 400 MG TAB PO SCH ×2 (11:41→20:55)
[2016-10-20] MEDS: TOBRAMYCIN SULF 0.3% OP SOLN 5 ML BTL OP SCH ×3 (11:41→20:54)
[2016-10-20] MEDS: INSULIN ASPART 100 UNITS/ML 3 ML PEN SC SCH ×3 (11:46→20:52)
[2016-10-20] MEDS: FUROSEMIDE INJ 80 MG in SYRINGE 0 ML IV SCH (16:43)
[2016-10-20] MEDS ORDERED: ISOSORBIDE MONONITRATE 30 MG TABCR PO ONE (18:00)
[2016-10-21] VITALS (9 sets, daily range): BP systolic 117–167; BP diastolic 66–96; PULSE 66–84; TEMP 36.3–36.9; O2SAT 91–98
[2016-10-21] MEDS: TOBRAMYCIN SULF 0.3% OP SOLN 5 ML BTL OP SCH ×6 (00:15→20:29)
[2016-10-21] MEDS: ACETAMINOPHEN 325 MG TAB PO PRN ×2 (02:25→22:23)
[2016-10-21] MEDS: LEVOTHYROXINE 75 MCG TAB PO SCH (05:04)
[2016-10-21] MEDS: INSULIN ASPART 100 UNITS/ML 3 ML PEN SC SCH ×4 (06:30→20:30)
[2016-10-21 07:00] LABS: HEMATOCRIT 40.1 % (42-52); MEAN CELL VOLUME 94.8 fL (80-100); MEAN CORPUSCULAR HEMOGLOBIN 29.6 pg (25-34); MEAN CORPUSCULAR HGB CONC 31.2 g/dl (32-36); MEAN PLATELET VOLUME 10.4 fL (7.4-10.4); PLATELET COUNT 193 K/uL (130-400); RED BLOOD COUNT 4.23 M/uL (4.7-6.1); WHITE BLOOD COUNT 8.17 K/uL (4.8-10.8)
[2016-10-21 07:32] LABS: BUN/CREATININE RATIO 18.2 (10-20); CALCIUM 8.8 mg/dl (8.5-10.1); CREATININE 1.7 mg/dl (0.60-1.40); POTASSIUM 3.9 mmol/L (3.5-5.1)
[2016-10-21] MEDS: ISOSORBIDE MONONITRATE 60 MG TABCR PO SCH (08:09)
[2016-10-21] MEDS: POTASSIUM CHLORIDE 20 MEQ TABCR PO SCH ×2 (08:10→20:32)
[2016-10-21] MEDS: MAGNESIUM OXIDE 400 MG TAB PO SCH ×2 (08:10→20:31)
[2016-10-21] MEDS: LISINOPRIL 2.5 MG TAB PO SCH (08:11)
[2016-10-21] MEDS: CHOLECALCIFEROL 1000 INTER.UNIT TAB PO SCH (08:11)
[2016-10-21] MEDS: DABIGATRAN ELEXILATE 75 MG CAP PO SCH ×2 (08:12→20:33)
[2016-10-21] MEDS: ALLOPURINOL 300 MG TAB PO SCH (08:12)
[2016-10-21] MEDS: METOPROLOL SUCC 50MG EXT REL TAB PO SCH (08:12)
[2016-10-21] MEDS: FUROSEMIDE INJ 80 MG in SYRINGE 0 ML IV SCH ×2 (09:25→16:52)
--- NOTE | 2016-10-21 11:34 | Hospitalist Progress Note ---
Hospitalist Progress Note Date of Service Oct 21, 2016. (Bernarda Saenz ., PA-C) Subjective Pt evaluation today including: conversation w/ patient, physical exam, chart review, lab review, review of inpatient medication list PO Intake: Tolerating PO diet Voiding: no voiding problems Patient reports feeling much better today. He states that he still has some minimal shortness of breath and orthopnea, but these have greatly improved since admission. He states that he was able to sleep well last night and denies any PND. He denies any weakness or fatigue today. She does still complain of intermittent abdominal pain when changing positions or getting up, however, states that this is improved as well. No abdominal pain currently. Patient is tolerating his diet well and urinating without difficulties, although he states he is urinating quite often due to the Lasix. The patient denies fevers, chills, sweats, chest pain, palpitations, claudication, cough, wheezing, nausea, vomiting, dysuria, hematuria, urinary retention, paralysis, weakness, numbness and tingling. Additional Comments: See HPI for pertinent positives and negatives. All other systems reviewed and negative. (Bernarda Saenz ., PA-C) Objective Vital Signs Date Time Temp Pulse Resp B/P Pulse Ox O2 Delivery O2 Flow Rate FiO2 10/21/16 10:40 36.3 72 20 155/93 94 Nasal Cannula 2.0 10/21/16 10:04 36.3 71 22 94 2.5 10/21/16 08:00 94 Nasal Cannula 3.0 10/21/16 07:50 36.4 66 20 158/79 98 Nasal Cannula 2.0 10/21/16 04:36 36.9 81 18 152/89 96 2.0 10/21/16 04:00 Room Air 3.0 10/21/16 00:13 36.3 78 18 160/84 95 Room Air 162/80 10/20/16 23:59 Nasal Cannula 3.0 10/20/16 20:00 Nasal Cannula 4.0 10/20/16 19:58 36.8 77 20 170/80 93 Nasal Cannula 2.0 10/20/16 16:00 Nasal Cannula 4.0 10/20/16 15:42 36.4 86 20 179/82 95 Nasal Cannula 4.0 10/20/16 13:06 93 25 168/100 95 Nasal Cannula 4.0 10/20/16 13:03 95 Nasal Cannula 4.0 10/20/16 12:20 93 25 168/100 95 Nasal Cannula 4.0 10/20/16 12:14 36.2 95 25 150/81 95 Nasal Cannula 4.0 10/20/16 11:46 90 28 138/87 96 Nasal Cannula 4.0 (Bernarda Saenz ., PA-C) Physical Exam General Appearance: WD/WN, no apparent distress, + obese Eyes: PERRL, EOMI, + pertinent finding (conjunctivitis appears improved) ENT: normal ENT inspection, hearing grossly normal, pharynx normal Neck: supple, no JVD, trachea midline Respiratory/Chest: lungs clear, normal breath sounds, no respiratory distress, + decreased breath sounds Cardiovascular: no gallop, no murmur, + irregularly irregular (rate controlled) Abdomen: normal bowel sounds, non tender (palpation does not elicit any tenderness), soft Extremities: non-tender, normal inspection, + swelling (trace pitting edema) Neurologic/Psychiatric: alert, normal mood/affect, oriented x 3 Skin: normal color, warm/dry, no rash (Bernarda Saenz ., PA-C) Laboratory Results Last 24 Hours Test 10/20/16 11:37 10/20/16 16:06 10/20/16 20:18 10/21/16 06:39 Bedside Glucose 151 mg/dl 101 mg/dl 107 mg/dl White Blood Count 8.17 K/uL Red Blood Count 4.23 M/uL Hemoglobin 12.5 g/dL Hematocrit 40.1 % Mean Corpuscular Volume 94.8 fL Mean Corpuscular Hemoglobin 29.6 pg Mean Corpuscular Hemoglobin Concent 31.2 g/dl RDW Standard Deviation 52.9 fL RDW Coefficient of Variation 15.2 % Platelet Count 193 K/uL Mean Platelet Volume 10.4 fL Sodium Level 145 mmol/L Potassium Level 3.9 mmol/L Chloride Level 107 mmol/L Carbon Dioxide Level 32 mmol/L Anion Gap 6.0 mmol/L Blood Urea Nitrogen 31 mg/dl Creatinine 1.70 mg/dl Est Creatinine Clear Calc Drug Dose 48.7 ml/min Estimated GFR () 45.0 Estimated GFR (Non- 38.9 BUN/Creatinine Ratio 18.2 Random Glucose 105 mg/dl Calcium Level 8.8 mg/dl Test 10/21/16 07:39 Bedside Glucose 99 mg/dl (Bernarda Saenz, VALERIE) Assessment and Plan 75 y/o male with a history of A. fib, systolic CHF, HTN, COPD, DM II, CKD stage III, CML (currently in remission), hypothyroidism, and gout who presented to the ED on 10/20 with sudden shortness of breath, sweating and nausea. Per patient's , they had been away from home the last 4 days visiting the patient's sister. The states that they had been eating out, and the patient does not necessarily watch what he eats. Patient arrived to ED hypertensive and hypoxic and was placed on nasal cannula. Patient does not wear supplemental oxygen at home. BP up to 249/139. The patient was given a total of 80 mg Lasix IV and did have good urine output per . The patient was also given 10 mg of hydralazine and 10 mg of labetalol for his blood pressure, which did improve to 156/83. Patient placed on BiPAP and reports feeling much better. Acute on chronic systolic CHF, acute respiratory failure with hypoxia-- improving. Last echocardiogram per outpatient and hospital records in 2011 showed LVEF of 25-30% -Admit to telemetry. Patient doing much better and is stable, transferred to [facility] on 10/21 -Patient now off BiPAP, oxygenating at 96% on 2L nasal cannula -Echocardiogram pending -Lasix 80 mg IV BID17. Patient had urine output of 3525 mL on 10/20 -Imdur increased to 120 mg PO qd as patient also needs better BP control -Daily weights -Strict I's & O's Atrial fibrillation--currently rate controlled -Cardiac monitoring on telemetry. Patient remained in rate controlled A. fib with heart rate in 60s to 80s overnight. Transferred to [facility] -EKGs q am and prn with chest pain -EKG on 10/21 shows 66 bpm, a-fib -Continue metoprolol succinate 200 mg PO qd -Continue Pradaxa 75 mg PO BID HTN--stable with SBP in 150s -Continue hydralazine 25 mg PO TID and lisinopril 2.5 mg PO qd, metoprolol as above COPD -Continue Combivent inhaler prn Diabetes mellitus type 2--last hemoglobin A1c checked 09/28/16 was 6.3 -Hold home NovoLog -Insulin sliding scale -Check BSGs q ac and qhs CKD stage III--stable -Baseline creatinine 1.[address] Zavaleta's records -Creatinine 1.7 upon arrival -Creatinine remains stable at 1.7 on 10/21 -Continue to monitor Hypothyroidism -Continue Synthroid 50 mcg and 75 mcg PO alternating every other day Gout -Continue allopurinol 300 mg PO qd Acute conjunctivitis--improving. Redness appears improved -Started on tobramycin drops as outpatient, will continue DVT prophylaxis -Pradaxa -ROSEMARIE damon and SCDs Code Status -Level I, FULL RESUSCITATION STATUS This chart was completed in part utilizing [employer] Speech Voice Recognition software. Attempts were made to minimize the grammatical errors, random word insertions, pronoun errors and incomplete sentences. Any formal questions or concerns about the content, text or information contained within the body of this dictation should be directly addressed to the provider for clarification. (Bernarda Saenz ., PA-C) Attending Attestation: Pt seen/examined, chart reviewed, care plan d/w RIKA Saenz. I agree w/ the pemberton components of her documentation. Pt feels much better - less orthopnea/dyspnea. no cough. VSS net neg 5+ liters since admit gen - nad neck - no obvious JVD today heart - irregular, rate <100, s1, s2 lungs - better airation, no wheeze today, bases improved; no rales abd - less distended ext - 1+ edema b/l A/P: 1. acute/chronic systolic CHF - improving. cont diuresis, fluid/salt restriction, etc BMP am. Better BP control needed - see below. 2. HTN - uncontrolled; increase imdur. 3. a. fib - controlled. 4. CKD stage 3 - Cr stable, BMP am. progressing Karina VALENTINO MD (Khang Valentino MD)
[2016-10-21] MEDS ORDERED: ISOSORBIDE MONONITRATE 60 MG TABCR PO SCH (20:00)
[2016-10-22 00:42] VITALS: O2SAT 91
[2016-10-22] MEDS: TOBRAMYCIN SULF 0.3% OP SOLN 5 ML BTL OP SCH ×6 (00:42→20:02)
[2016-10-22] MEDS: LEVOTHYROXINE 50 MCG TAB PO SCH (06:51)
[2016-10-22 07:07] VITALS: BP 169/102; PULSE 88; TEMP 36.4; O2SAT 93
[2016-10-22] MEDS: ALLOPURINOL 300 MG TAB PO SCH (07:49)
[2016-10-22] MEDS: DABIGATRAN ELEXILATE 75 MG CAP PO SCH ×2 (07:49→20:02)
[2016-10-22] MEDS: METOPROLOL SUCC 50MG EXT REL TAB PO SCH (07:50)
[2016-10-22] MEDS: CHOLECALCIFEROL 1000 INTER.UNIT TAB PO SCH (07:50)
[2016-10-22] MEDS: POTASSIUM CHLORIDE 20 MEQ TABCR PO SCH ×2 (07:51→20:02)
[2016-10-22] MEDS: ISOSORBIDE MONONITRATE 60 MG TABCR PO SCH (07:51)
[2016-10-22] MEDS: LISINOPRIL 2.5 MG TAB PO SCH (07:52)
[2016-10-22] MEDS: MAGNESIUM OXIDE 400 MG TAB PO SCH ×2 (07:52→20:02)
[2016-10-22] MEDS: FUROSEMIDE INJ 80 MG in SYRINGE 0 ML IV SCH ×2 (07:53→16:34)
[2016-10-22] MEDS: INSULIN ASPART 100 UNITS/ML 3 ML PEN SC SCH ×4 (08:00→20:03)
[2016-10-22 08:04] LABS: HEMATOCRIT 43.1 % (42-52); MEAN CELL VOLUME 92.7 fL (80-100); MEAN CORPUSCULAR HEMOGLOBIN 29.2 pg (25-34); MEAN CORPUSCULAR HGB CONC 31.6 g/dl (32-36); MEAN PLATELET VOLUME 10.4 fL (7.4-10.4); PLATELET COUNT 238 K/uL (130-400); RED BLOOD COUNT 4.65 M/uL (4.7-6.1); WHITE BLOOD COUNT 12.29 K/uL (4.8-10.8)
[2016-10-22 08:41] LABS: BUN/CREATININE RATIO 17.5 (10-20); CALCIUM 9.1 mg/dl (8.5-10.1); CREATININE 1.6 mg/dl (0.60-1.40); POTASSIUM 3.6 mmol/L (3.5-5.1)
[2016-10-22 10:21] VITALS: BP 167/78; PULSE 79; O2SAT 92
--- NOTE | 2016-10-22 10:55 | Clinical Documentation Query ---
CLINICAL DOCUMENTATION QUERY 75 year old male who presents to the Emergency Room with complaints of constant shortness of breath. The patient was quite hypertensive (243/112) and in CHF. In your clinical opinion is this patient being managed for: ( x ) Hypertensive crisis/emergency treated with IV Hydralazine, Nitro paste, IV Lasix, and increase in Imdur dose. ( ) Other explanation of clinical findings (Please Explain) Hypertensive urgency ( ) Unable to determine (Please Define) ( ) Need to Discuss ( ) Not Agree The medical record reflects the following clinical findings, treatment, and risk factors. Clinical Indicators: As above. Treatment: IV Hydralazine, Nitro paste, IV Lasix, Risk Factors: Age, CHF, CKD Please clarify and document your clinical opinion in the progress notes and discharge summary. Terms such as "probable", "suspected", "likely", "questionable", "possible", or "still to be ruled out" are acceptable. IF IN AGREEMENT, YOU MUST DOCUMENT ABOVE DIAGNOSTIC STATEMENT IN DAILY PROGRESS NOTES AND DISCHARGE SUMMARY. This document is not part of the patient's record. Thank You, Wally Aguilar, MENDOZA [phone]
--- NOTE | 2016-10-22 12:10 | ECHOCARDIOGRAM REPORT ---
*NOTICE TO RECEIVING DEMOCRAT AGENCY This information is strictly Confidential and protected under [place] law. [place] law prohibits you from making any further disclosure of this information unless further disclosure is expressly permitted by the written consent of the person to whom it pertains or is authorized by law. A general authorization for the release of medical or other information is not sufficient for this purpose. Hospital accepts no responsibility if the information is made available to any other person, INCLUDING THE PATIENT. Interpretation Summary * Name: JAMEEL BARCENAS Study Date: 10/22/2016 08:37 AM BP: 169/102 mmHg * [id number]W451\S\2 HR: 88 * : 1940 (M/d/yyy) Gender: Male Height: 70 in * Age: 75 yrs Ethnicity: [place] Weight: 271 lb * Ordering Physician: Bernarda Saenz * Referring Physician: Self, Referred * Performed By: Mark Vale [facility] * * Reason For Study: CHF * BSA: 2.4 m2 * -- Conclusions -- * There is moderate concentric left ventricular hypertrophy. * Left ventricular systolic function is normal. * Poorly characterized AI, likely moderate * Right ventricular systolic pressure is normal. * When compared to an echocardiogram from 08/2011, the LV function has improved. Degree of AI has improved and aortic root dilation seen previously has resolved Procedure Details * A complete two-dimensional transthoracic echocardiogram was performed (2D, M-mode, Doppler and color flow Doppler). * The study was technically difficult. * A contrast injection of Definity was performed to improve assessment of LV function. * Contrast was injected into an intravenous site in the right arm. * One vial of Definity ultrasound contrast was diluted in normal saline to a total volume of 10 ml. A total of '2' ml of solution was administered during imaging. * Lot # [id number] of Definity utilized for procedure. * Expiration date 1APR18. * The attending nurse who injected the contrast agent was Max Nunes RN. Left Ventricle * The left ventricle is grossly normal size. * There is moderate concentric left ventricular hypertrophy. * Ejection Fraction = 50-55%. * Left ventricular systolic function is normal. Right Ventricle * The right ventricle is grossly normal size. * The right ventricular systolic function is normal. Atria * The left atrium is severely dilated. * The right atrium is severely dilated. Mitral Valve * The mitral valve is not well visualized. * There is trace mitral regurgitation. Tricuspid Valve * The tricuspid valve is not well visualized. * There is mild tricuspid regurgitation. * Right ventricular systolic pressure is normal. Aortic Valve * The aortic valve is not well visualized. * No hemodynamically significant valvular aortic stenosis. * Poorly characterized AI, likely moderate Great Vessels * The aortic root is normal size. Pericardium/Pleural * There is no pericardial effusion. MMode 2D Measurements and Calculations IVSd 2.0 cm IVSs 2.6 cm LVIDd 5.5 cm LVIDs 4.0 cm LVPWd 1.6 cm LVPWs 1.9 cm IVS/LVPW 1.2 FS 26.5 % EDV(Teich) 146.4 ml ESV(Teich) 71.2 ml EF(Teich) 51.3 % EDV(cubed) 164.8 ml ESV(cubed) 65.4 ml EF(cubed) 60.3 % % IVS thick 27.0 % % LVPW thick 14.8 % LV mass(C)d 503.7 grams LV mass(C)dI 212.1 grams/m\S\2 LV mass(C)s 457.9 grams LV mass(C)sI 192.8 grams/m\S\2 CO(Teich) 7.4 l/min CI(Teich) 3.1 l/min/m\S\2 SV(Teich) 75.1 ml SI(Teich) 31.6 ml/m\S\2 CO(cubed) 9.7 l/min CI(cubed) 4.1 l/min/m\S\2 SV(cubed) 99.4 ml SI(cubed) 41.8 ml/m\S\2 Ao root diam 3.5 cm Ao root area 9.6 cm\S\2 ACS 1.8 cm LA dimension 5.9 cm asc Aorta Diam 4.3 cm LA/Ao 1.7 LVAd ap4 35.3 cm\S\2 LVLd ap4 8.2 cm EDV(MOD-sp4) 123.0 ml LVAs ap4 25.3 cm\S\2 LVLs ap4 7.9 cm ESV(MOD-sp4) 67.0 ml EF(MOD-sp4) 45.5 % LVAd ap2 34.8 cm\S\2 LVLd ap2 8.4 cm EDV(MOD-sp2) 120.0 ml LVAs ap2 23.4 cm\S\2 LVLs ap2 7.6 cm ESV(MOD-sp2) 60.0 ml EF(MOD-sp2) 50.0 % CO(MOD-sp4) 5.5 l/min CI(MOD-sp4) 2.3 l/min/m\S\2 SV(MOD-sp4) 56.0 ml SI(MOD-sp4) 23.6 ml/m\S\2 CO(MOD-sp2) 5.9 l/min CI(MOD-sp2) 2.5 l/min/m\S\2 SV(MOD-sp2) 60.0 ml SI(MOD-sp2) 25.3 ml/m\S\2 Doppler Measurements and Calculations MV E max sangeetha 142.6 cm/sec MV P1/2t max sangeetha 149.4 cm/sec MV P1/2t 96.6 msec MVA(P1/2t) 2.3 cm\S\2 MV dec slope 453.2 cm/sec\S\2 MV dec time 0.20 sec Ao V2 max 201.5 cm/sec Ao max PG 16.2 mmHg Ao max PG (full) 10.4 mmHg AI max sangeetha 497.3 cm/sec AI max PG 99.1 mmHg AI dec slope 311.3 cm/sec\S\2 AI P1/2t 468.0 msec LV V1 max PG 5.8 mmHg LV V1 max 120.9 cm/sec MR max sangeetha 177.4 cm/sec MR max PG 12.6 mmHg PA V2 max 83.4 cm/sec PA max PG 2.8 mmHg TR max sangeetha 181.3 cm/sec
[2016-10-22] MEDS: ACETAMINOPHEN 325 MG TAB PO PRN (12:34)
--- NOTE | 2016-10-22 13:31 | Hospitalist Progress Note ---
Hospitalist Progress Note Date of Service Oct 22, 2016. (Bernarda Saenz ., PA-C) Subjective Pt evaluation today including: conversation w/ patient, physical exam, chart review, lab review, review of studies, review of inpatient medication list Pain: None PO Intake: Tolerating PO diet Voiding: no voiding problems Patient reports feeling well. He states that he is not short of breath at rest anymore. He has not gotten up to do much activity and is unsure if he would be short of breath on exertion. He denies any orthopnea or PND. His intermittent abdominal pain seems to have resolved. The patient denies fevers, chills, sweats, chest pain, palpitations, claudication, cough, wheezing, shortness of breath, nausea, vomiting, abdominal pain, dysuria, hematuria, urinary retention , paralysis, weakness, numbness and tingling. Additional Comments: See HPI for pertinent positives and negatives. All other systems reviewed and negative. (Bernarda Saenz ., PA-C) Objective Vital Signs Date Time Temp Pulse Resp B/P Pulse Ox O2 Delivery O2 Flow Rate FiO2 10/22/16 10:21 79 167/78 92 10/22/16 08:10 Room Air 10/22/16 07:07 36.4 88 16 169/102 93 Room Air 10/22/16 00:53 Room Air 10/22/16 00:42 91 Room Air 10/21/16 23:37 36.8 84 20 167/96 91 2.0 10/21/16 16:20 96 Room Air 10/21/16 15:06 36.7 78 18 164/83 96 Nasal Cannula 2.0 (Bernarda Saenz ., RIKA-C) Physical Exam General Appearance: WD/WN, no apparent distress, + obese Eyes: normal inspection, PERRL, EOMI, + pertinent finding (acute conjunctivitis appears improved) ENT: normal ENT inspection, hearing grossly normal, pharynx normal Neck: supple, no JVD, trachea midline Respiratory/Chest: lungs clear, normal breath sounds, no respiratory distress, + decreased breath sounds Cardiovascular: no gallop, no murmur, + irregularly irregular (rate controlled) Abdomen: normal bowel sounds, non tender, soft Extremities: normal range of motion, normal inspection, + swelling (1+ pitting edema) Neurologic/Psychiatric: alert, normal mood/affect, oriented x 3 Skin: normal color, warm/dry, no rash (Bernarda Saenz ., PA-C) Laboratory Results Last 24 Hours Test 10/21/16 16:11 10/21/16 20:04 10/22/16 07:08 10/22/16 07:59 Bedside Glucose 106 mg/dl 136 mg/dl 121 mg/dl White Blood Count 12.29 K/uL Red Blood Count 4.65 M/uL Hemoglobin 13.6 g/dL Hematocrit 43.1 % Mean Corpuscular Volume 92.7 fL Mean Corpuscular Hemoglobin 29.2 pg Mean Corpuscular Hemoglobin Concent 31.6 g/dl RDW Standard Deviation 50.9 fL RDW Coefficient of Variation 15.0 % Platelet Count 238 K/uL Mean Platelet Volume 10.4 fL Sodium Level 140 mmol/L Potassium Level 3.6 mmol/L Chloride Level 103 mmol/L Carbon Dioxide Level 30 mmol/L Anion Gap 7.0 mmol/L Blood Urea Nitrogen 28 mg/dl Creatinine 1.60 mg/dl Est Creatinine Clear Calc Drug Dose 51.4 ml/min Estimated GFR () 48.5 Estimated GFR (Non- 41.8 BUN/Creatinine Ratio 17.5 Random Glucose 118 mg/dl Calcium Level 9.1 mg/dl Magnesium Level 2.3 mg/dl Test 10/22/16 11:41 Bedside Glucose 129 mg/dl (Bernarda Saenz, PA-C) Diagnostic Results Reviewed the following studies and agree with interpretation as follows: [address] [place] [address] Performing Location: [facility] Patient Name: JAMEEL BARCENAS Dictating Provider: Lucien Thompson MD Dictation Date: Report Signed By: Date: 1940 Gastrointestinal Technician: JAMES Room/Bed: [facility] Family Physician: Errol Julio M.D. SC: [id number] Primary Care Physician: Errol Julio M.D. Adm Date: 10/20/16 Attending Physician: Khang Valentino MD Dis Date: Admitting Physician: Khang Valentino MD Ordering Physician: *NOTICE TO RECEIVING GREEN PARTY AGENCY This information is strictly Confidential and protected under [place] law. [place] law prohibits you from making any further disclosure of this information unless further disclosure is expressly permitted by the written consent of the person to whom it pertains or is authorized by law. A general authorization for the release of medical or other information is not sufficient for this purpose. Hospital accepts no responsibility if the information is made available to any other person, INCLUDING THE PATIENT. Interpretation Summary * Name: JAMEEL BARCENAS Study Date: 10/22/2016 08:37 AM BP: 169/102 mmHg * Patient Location: [id number]\S\W451\S\2 HR: 88 * : 1940 (M/d/yyy) Gender: Male Height: 70 in * Age: 75 yrs Ethnicity: CA Weight: 271 lb * Ordering Physician: Bernarda Saenz * Referring Physician: Self, Referred * Performed By: Mark Vale [facility] * * Reason For Study: CHF * BSA: 2.4 m2 * -- Conclusions -- * There is moderate concentric left ventricular hypertrophy. * Left ventricular systolic function is normal. * Poorly characterized AI, likely moderate * Right ventricular systolic pressure is normal. * When compared to an echocardiogram from 08/2011, the LV function has improved. Degree of AI has improved and aortic root dilation seen previously has resolved Procedure Details * A complete two-dimensional transthoracic echocardiogram was performed (2D, M-mode, Doppler and color flow Doppler). * The study was technically difficult. * A contrast injection of Definity was performed to improve assessment of LV function. * Contrast was injected into an intravenous site in the right arm. * One vial of Definity ultrasound contrast was diluted in normal saline to a total volume of 10 ml. A total of '2' ml of solution was administered during imaging. * Lot # [id number] of Definity utilized for procedure. * Expiration date 1APR18. * The attending nurse who injected the contrast agent was Max Nunes RN. Left Ventricle * The left ventricle is grossly normal size. * There is moderate concentric left ventricular hypertrophy. * Ejection Fraction = 50-55%. * Left ventricular systolic function is normal. Right Ventricle * The right ventricle is grossly normal size. * The right ventricular systolic function is normal. Atria * The left atrium is severely dilated. * The right atrium is severely dilated. Mitral Valve * The mitral valve is not well visualized. * There is trace mitral regurgitation. Tricuspid Valve * The tricuspid valve is not well visualized. * There is mild tricuspid regurgitation. * Right ventricular systolic pressure is normal. Aortic Valve * The aortic valve is not well visualized. * No hemodynamically significant valvular aortic stenosis. * Poorly characterized AI, likely moderate Great Vessels * The aortic root is normal size. Pericardium/Pleural * There is no pericardial effusion. MMode 2D Measurements and Calculations IVSd 2.0 cm IVSs 2.6 cm LVIDd 5.5 cm LVIDs 4.0 cm LVPWd 1.6 cm LVPWs 1.9 cm IVS/LVPW 1.2 FS 26.5 % EDV(Teich) 146.4 ml ESV(Teich) 71.2 ml EF(Teich) 51.3 % EDV(cubed) 164.8 ml ESV(cubed) 65.4 ml EF(cubed) 60.3 % % IVS thick 27.0 % % LVPW thick 14.8 % LV mass(C)d 503.7 grams LV mass(C)dI 212.1 grams/m\S\2 LV mass(C)s 457.9 grams LV mass(C)sI 192.8 grams/m\S\2 CO(Teich) 7.4 l/min CI(Teich) 3.1 l/min/m\S\2 SV(Teich) 75.1 ml SI(Teich) 31.6 ml/m\S\2 CO(cubed) 9.7 l/min CI(cubed) 4.1 l/min/m\S\2 SV(cubed) 99.4 ml SI(cubed) 41.8 ml/m\S\2 Ao root diam 3.5 cm Ao root area 9.6 cm\S\2 ACS 1.8 cm LA dimension 5.9 cm asc Aorta Diam 4.3 cm LA/Ao 1.7 LVAd ap4 35.3 cm\S\2 LVLd ap4 8.2 cm EDV(MOD-sp4) 123.0 ml LVAs ap4 25.3 cm\S\2 LVLs ap4 7.9 cm ESV(MOD-sp4) 67.0 ml EF(MOD-sp4) 45.5 % LVAd ap2 34.8 cm\S\2 LVLd ap2 8.4 cm EDV(MOD-sp2) 120.0 ml LVAs ap2 23.4 cm\S\2 LVLs ap2 7.6 cm ESV(MOD-sp2) 60.0 ml EF(MOD-sp2) 50.0 % CO(MOD-sp4) 5.5 l/min CI(MOD-sp4) 2.3 l/min/m\S\2 SV(MOD-sp4) 56.0 ml SI(MOD-sp4) 23.6 ml/m\S\2 CO(MOD-sp2) 5.9 l/min CI(MOD-sp2) 2.5 l/min/m\S\2 SV(MOD-sp2) 60.0 ml SI(MOD-sp2) 25.3 ml/m\S\2 Doppler Measurements and Calculations MV E max sangeetha 142.6 cm/sec MV P1/2t max sangeetha 149.4 cm/sec MV P1/2t 96.6 msec MVA(P1/2t) 2.3 cm\S\2 MV dec slope 453.2 cm/sec\S\2 MV dec time 0.20 sec Ao V2 max 201.5 cm/sec Ao max PG 16.2 mmHg Ao max PG (full) 10.4 mmHg AI max sangeetha 497.3 cm/sec AI max PG 99.1 mmHg AI dec slope 311.3 cm/sec\S\2 AI P1/2t 468.0 msec LV V1 max PG 5.8 mmHg LV V1 max 120.9 cm/sec MR max sangeetha 177.4 cm/sec MR max PG 12.6 mmHg PA V2 max 83.4 cm/sec PA max PG 2.8 mmHg TR max sangeetha 181.3 cm/sec (Bernarda Saenz, PA-C) Assessment and Plan 75 y/o male with a history of A. fib, systolic CHF, HTN, COPD, DM II, CKD stage III, CML (currently in remission), hypothyroidism, and gout who presented to the ED on 10/20 with sudden shortness of breath, sweating and nausea. Per patient's , they had been away from home the last 4 days visiting the patient's sister. The states that they had been eating out, and the patient does not necessarily watch what he eats. Patient arrived to ED hypertensive and hypoxic and was placed on nasal cannula. Patient does not wear supplemental oxygen at home. BP up to 249/139. The patient was given a total of 80 mg Lasix IV and did have good urine output per . The patient was also given 10 mg of hydralazine and 10 mg of labetalol for his blood pressure, which did improve to 156/83. Patient placed on BiPAP and reports feeling much better. Acute on chronic systolic CHF, acute respiratory failure with hypoxia-- improving. Last echocardiogram per outpatient and hospital records in 2011 showed LVEF of 25-30% -Admit to telemetry. Patient doing much better and is stable, transferred to [facility] on 10/21 -Oxygenating well on room air -Echocardiogram shows moderate concentric LVH. Left ventricular systolic function normal. Moderate aortic insufficiency. Right ventricular systolic pressure normal. Compared to 08/2011 study. Left ventricular function has improved. AI has also improved. Aortic root dilation seen previously now resolved. -Continue Lasix 80 mg IV BID17. Renal function has remained stable. Patient had urine output of 3550 mL on -Imdur 120 mg PO qd -Daily weights -Strict I's & O's -Order to ambulate in hallway -PT/OT ordered Atrial fibrillation--currently rate controlled -EKGs q am and prn with chest pain -EKG on 10/22 shows 84 bpm, a-fib -Continue metoprolol succinate 200 mg PO qd -Continue Pradaxa 75 mg PO BID HTN urgency, BP 243/118 in ED--slightly worse compared to 10/21, Systolic blood pressure in 160s -Increase hydralazine to 50 mg PO TID -Continue lisinopril 2.5 mg PO qd, metoprolol as above COPD -Continue Combivent inhaler prn Diabetes mellitus type 2--last hemoglobin A1c checked 09/28/16 was 6.3 -Hold home NovoLog -Insulin sliding scale -Check BSGs q ac and qhs CKD stage III--stable -Baseline creatinine 1.[address] Zavaleta's records -Creatinine 1.7 upon arrival -Creatinine remains stable at 1.6 on 10/22 -Continue to monitor Hypothyroidism -Continue Synthroid 50 mcg and 75 mcg PO alternating every other day Gout -Continue allopurinol 300 mg PO qd Acute conjunctivitis--improving. Redness appears improved -Started on tobramycin drops as outpatient, will continue DVT prophylaxis -Pradaxa -ROSEMAREI marisol and SCDs Code Status -Level I, FULL RESUSCITATION STATUS This chart was completed in part utilizing [employer] Speech Voice Recognition software. Attempts were made to minimize the grammatical errors, random word insertions, pronoun errors and incomplete sentences. Any formal questions or concerns about the content, text or information contained within the body of this dictation should be directly addressed to the provider for clarification. (Bernarda Saenz ., PA-C) Attending Attestation: Pt seen/examined, chart reviewed, care plan d/w PA Bernarda Saenz. I agree w/ the pemberton components of her documentation. No complaints today. feels good. dyspnea resolved no orthopnea VSS although BPs still high gen - nad neck - no obvious JVD heart - irregularly irregular, s1, s2, lungs - CTA b/l abd - soft ext - < 1+ edema b/l A/P: 1. acute/chronic systolic CHF - improving with stable BUN and creatinine. cont diuresis, fluid/salt restriction, etc BMP am. Better BP control needed - see below. 2. HTN - uncontrolled; increase hydralazine to 50 TID. 3. a. fib - controlled. 4. CKD stage 3 - Cr stable, BMP am. progressing nicely d/c next 48 hours Karina VALENTINO MD (Khang Valentino MD)
[2016-10-22 14:51] VITALS: BP 152/72; PULSE 82; TEMP 36.6; O2SAT 92
[2016-10-23] VITALS (7 sets, daily range): BP systolic 146–176; BP diastolic 72–98; PULSE 72–91; TEMP 36.5–36.9; O2SAT 90–93
[2016-10-23] MEDS: TOBRAMYCIN SULF 0.3% OP SOLN 5 ML BTL OP SCH ×7 (00:27→23:53)
[2016-10-23] MEDS: LEVOTHYROXINE 75 MCG TAB PO SCH (06:08)
[2016-10-23] MEDS: INSULIN ASPART 100 UNITS/ML 3 ML PEN SC SCH ×4 (06:30→21:10)
[2016-10-23 07:38] LABS: HEMATOCRIT 39.6 % (42-52); MEAN CELL VOLUME 91.9 fL (80-100); MEAN CORPUSCULAR HEMOGLOBIN 29.5 pg (25-34); MEAN CORPUSCULAR HGB CONC 32.1 g/dl (32-36); PLATELET COUNT 188 K/uL (130-400); RED BLOOD COUNT 4.31 M/uL (4.7-6.1); WHITE BLOOD COUNT 10.39 K/uL (4.8-10.8)
[2016-10-23 08:12] LABS: CALCIUM 8.5 mg/dl (8.5-10.1); CREATININE 1.6 mg/dl (0.60-1.40); POTASSIUM 3.5 mmol/L (3.5-5.1)
[2016-10-23] MEDS: ALLOPURINOL 300 MG TAB PO SCH (08:18)
[2016-10-23] MEDS: METOPROLOL SUCC 50MG EXT REL TAB PO SCH (08:18)
[2016-10-23] MEDS: CHOLECALCIFEROL 1000 INTER.UNIT TAB PO SCH (08:18)
[2016-10-23] MEDS: DABIGATRAN ELEXILATE 75 MG CAP PO SCH ×2 (08:18→20:29)
[2016-10-23] MEDS: ISOSORBIDE MONONITRATE 60 MG TABCR PO SCH (08:18)
[2016-10-23] MEDS: POTASSIUM CHLORIDE 20 MEQ TABCR PO SCH ×2 (08:19→20:28)
[2016-10-23] MEDS: LISINOPRIL 2.5 MG TAB PO SCH (08:19)
[2016-10-23] MEDS: MAGNESIUM OXIDE 400 MG TAB PO SCH ×2 (08:19→20:28)
[2016-10-23] MEDS: FUROSEMIDE INJ 80 MG in SYRINGE 0 ML IV SCH ×2 (08:20→17:04)
[2016-10-23] MEDS ORDERED: LISINOPRIL 2.5 MG TAB PO ONE (11:05)
--- NOTE | 2016-10-23 11:49 | Hospitalist Progress Note ---
Hospitalist Progress Note Date of Service Oct 23, 2016. (Bernarda Saenz ., RIKA-C) Subjective Pt evaluation today including: conversation w/ patient, physical exam, chart review, lab review, review of inpatient medication list Pain: None PO Intake: Tolerating PO diet Voiding: no voiding problems Patient reports feeling well. He was able to ambulate in the hallway yesterday without any issues or shortness of breath. He denies any orthopnea or PND. He does report some indigestion but states that it is mild and he does not need any medication for this. The patient denies fevers, chills, sweats, chest pain , palpitations, claudication, cough, wheezing, shortness of breath, nausea, vomiting, abdominal pain, dysuria, hematuria, urinary retention, paralysis, weakness, numbness and tingling. Additional Comments: See HPI for pertinent positives and negatives. All other systems reviewed and negative. (Bernarda Saenz ., RIKA-C) Objective Vital Signs Date Time Temp Pulse Resp B/P Pulse Ox O2 Delivery O2 Flow Rate FiO2 10/23/16 11:38 91 161/73 10/23/16 08:48 36.5 87 16 176/98 91 Room Air 10/23/16 07:25 Room Air 10/23/16 00:25 36.7 84 18 155/88 92 Room Air 10/23/16 00:00 Room Air 10/22/16 16:00 Room Air 10/22/16 14:51 36.6 82 18 152/72 92 Room Air (Bernarda Saenz ., PA-C) Physical Exam General Appearance: WD/WN, no apparent distress, + obese Eyes: normal inspection, PERRL, EOMI, + pertinent finding (conjunctiva improved ) ENT: normal ENT inspection, hearing grossly normal, pharynx normal Neck: supple, no JVD, trachea midline Respiratory/Chest: lungs clear, normal breath sounds, no respiratory distress, + decreased breath sounds Cardiovascular: no gallop, no murmur, + irregularly irregular (rate controlled) Abdomen: normal bowel sounds, non tender, soft Extremities: non-tender, normal inspection, + swelling (1+ pitting edema RLE, 2 + pitting edema LLE) Neurologic/Psychiatric: alert, normal mood/affect, oriented x 3 Skin: normal color, warm/dry, no rash (Bernarda Saenz .MARYC) Laboratory Results Last 24 Hours Test 10/22/16 16:37 10/22/16 19:52 10/23/16 07:22 10/23/16 08:27 Bedside Glucose 100 mg/dl 165 mg/dl 108 mg/dl White Blood Count 10.39 K/uL Red Blood Count 4.31 M/uL Hemoglobin 12.7 g/dL Hematocrit 39.6 % Mean Corpuscular Volume 91.9 fL Mean Corpuscular Hemoglobin 29.5 pg Mean Corpuscular Hemoglobin Concent 32.1 g/dl RDW Standard Deviation 50.7 fL RDW Coefficient of Variation 15.0 % Platelet Count 188 K/uL Mean Platelet Volume 10.0 fL Sodium Level 139 mmol/L Potassium Level 3.5 mmol/L Chloride Level 102 mmol/L Carbon Dioxide Level 32 mmol/L Anion Gap 5.0 mmol/L Blood Urea Nitrogen 27 mg/dl Creatinine 1.60 mg/dl Est Creatinine Clear Calc Drug Dose 51.4 ml/min Estimated GFR () 48.5 Estimated GFR (Non- 41.8 BUN/Creatinine Ratio 17.0 Random Glucose 118 mg/dl Calcium Level 8.5 mg/dl (Bernarda Saenz ., MARYC) Assessment and Plan 75 y/o male with a history of A. fib, systolic CHF, HTN, COPD, DM II, CKD stage III, CML (currently in remission), hypothyroidism, and gout who presented to the ED on 10/20 with sudden shortness of breath, sweating and nausea. Per patient's , they had been away from home the last 4 days visiting the patient's sister. The states that they had been eating out, and the patient does not necessarily watch what he eats. Patient arrived to ED hypertensive and hypoxic and was placed on nasal cannula. Patient does not wear supplemental oxygen at home. BP up to 249/139. The patient was given a total of 80 mg Lasix IV and did have good urine output per . The patient was also given 10 mg of hydralazine and 10 mg of labetalol for his blood pressure, which did improve to 156/83. Patient placed on BiPAP and reports feeling much better. Acute on chronic systolic CHF, acute respiratory failure with hypoxia-- improving. Last echocardiogram per outpatient and hospital records in 2011 showed LVEF of 25-30% -Admit to telemetry. Patient doing much better and is stable, transferred to [facility] on 10/21 -Oxygenating well on room air. Ambulating in the [place]han without AGUILAR -Echocardiogram shows moderate concentric LVH. Left ventricular systolic function normal. Moderate aortic insufficiency. Right ventricular systolic pressure normal. Compared to 08/2011 study. Left ventricular function has improved. AI has also improved. Aortic root dilation seen previously now resolved. -Continue Lasix 80 mg IV BID17. Patient had urine output of 2200 mL on 10/22. Creatinine has remained the same, will continue current dose -Imdur 120 mg PO qd -Daily weights -Strict I's & O's -PT/OT ordered Atrial fibrillation--currently rate controlled -EKGs q am and prn with chest pain -EKG on 10/22 shows 84 bpm, a-fib -Continue metoprolol succinate 200 mg PO qd -Continue Pradaxa 75 mg PO BID HTN urgency, BP 243/118 in ED--ongoing. BP up to 176/98 on 10/23 -Continue hydralazine to 50 mg PO TID -Increase lisinopril to 5 mg PO qd -Continue metoprolol as above COPD -Continue Combivent inhaler prn Diabetes mellitus type 2--last hemoglobin A1c checked 09/28/16 was 6.3 -Hold home NovoLog -Insulin sliding scale -Check BSGs q ac and qhs CKD stage III--stable -Baseline creatinine 1.[address] Zavaleta's records -Creatinine 1.7 upon arrival -Creatinine remains stable at 1.6 on 10/23 -Continue to monitor Hypothyroidism -Continue Synthroid 50 mcg and 75 mcg PO alternating every other day Gout -Continue allopurinol 300 mg PO qd Acute conjunctivitis--improving. Redness appears improved -Started on tobramycin drops as outpatient, will continue DVT prophylaxis -Pradaxa -ROSEMARIE hose and SCDs Code Status -Level I, FULL RESUSCITATION STATUS This chart was completed in part utilizing [employer] Speech Voice Recognition software. Attempts were made to minimize the grammatical errors, random word insertions, pronoun errors and incomplete sentences. Any formal questions or concerns about the content, text or information contained within the body of this dictation should be directly addressed to the provider for clarification. (Bernarda Saenz ., PAErikaC) Attending Attestation: Pt seen/examined, chart reviewed, care plan d/w RIKA Saenz. I agree w/ the pemberton components of her documentation. Had episode right after lunch today of waking up with dyspnea. Lasted about 1 hour then resolved. Sitting up made the symptoms better. Did not have any chest pain or palpitations. VSS although BPs still high net neg 7+ liters since admission gen - nad neck - no obvious JVD heart - irregularly irregular, s1, s2, lungs - CTA b/l, minimal decreased BS bases abd - soft ext - 1+ edema b/l A/P: 1. acute/chronic systolic CHF - cont lasix IV BID BMP am. Better BP control needed - see below. 2. HTN - uncontrolled; increase ROSIBEL 3. a. fib - controlled. 4. CKD stage 3 - Cr stable, BMP am. 5. c/o dyspneic spell - either orthopnea from CHF or GERD or other EKG obtained - no changes added PPI cont to diurese updated progressing Karina VALENTINO MD (Khang Valentino MD)
[2016-10-23] MEDS ORDERED: PANTOprazole SOD 40 MG TAB PO STA (19:50)
[2016-10-24] MEDS: TOBRAMYCIN SULF 0.3% OP SOLN 5 ML BTL OP SCH ×5 (04:00→20:17)
[2016-10-24] MEDS: LEVOTHYROXINE 50 MCG TAB PO SCH (06:09)
[2016-10-24 07:48] LABS: HEMATOCRIT 42.2 % (42-52); MEAN CELL VOLUME 92.1 fL (80-100); MEAN CORPUSCULAR HEMOGLOBIN 29.3 pg (25-34); MEAN CORPUSCULAR HGB CONC 31.8 g/dl (32-36); MEAN PLATELET VOLUME 10.7 fL (7.4-10.4); PLATELET COUNT 233 K/uL (130-400); RED BLOOD COUNT 4.58 M/uL (4.7-6.1); WHITE BLOOD COUNT 12.22 K/uL (4.8-10.8)
[2016-10-24] MEDS: INSULIN ASPART 100 UNITS/ML 3 ML PEN SC SCH ×4 (08:00→21:24)
--- NOTE | 2016-10-24 08:15 | Hospitalist Progress Note ---
Hospitalist Progress Note Date of Service Oct 24, 2016. (Cindy Banks PA-C) Subjective Pt evaluation today including: conversation w/ patient, physical exam, chart review, lab review, review of studies, conversation w/ [employer] product consultant Pain: None PO Intake: Good Voiding: no voiding problems The patient was seen and examined this morning. Patient reports feeling well today, he reports that shortness of breath is greatly improved. He also states that he feels that he has nearly at his baseline. He does notice that his blood pressure has been elevated, and says that part of it is due to white coat syndrome. He denies having any difficulty with ambulation in the hallway, denies any lightheadedness or dizziness. He is sitting in the bedside chair on room air. Additional Comments: Constitutional: No fever, chills, sweats, fatigue or weakness Eyes: No diplopia, no changes in vision ENT: No sore throat, tinnitus, or trouble swallowing Respiratory: No shortness of breath, No dyspnea at rest or on exertion, no cough or sputum Cardiovascular: No chest pain, palpitations, or flutter Abdomen: No pain, No constipation, No diarrhea, No nausea, No vomiting Musculoskeletal: No calf pain, No joint pain, + edema in bilateral lower extremities, improving Genitourinary : No dysuria or urinary frequency, No hematuria Neurologic: No numbness/tingling, no difficulty with ambulation, no sensory or motor deficits Endocrine: No fatigue, + weight loss since fluid outs in the hospital Integumentary: No itch, No rash (Cindy Banks PA-C) Objective Vital Signs Date Time Temp Pulse Resp B/P Pulse Ox O2 Delivery O2 Flow Rate FiO2 10/24/16 00:00 Room Air 10/23/16 23:54 85 146/73 10/23/16 23:07 36.8 86 20 162/90 93 Room Air 10/23/16 16:00 Room Air 10/23/16 15:46 36.9 72 16 147/72 90 Room Air 10/23/16 13:15 84 18 157/82 91 Room Air 10/23/16 11:38 91 161/73 10/23/16 08:48 36.5 87 16 176/98 91 Room Air (Cindy Banks PA-C) Physical Exam Notes: General: awake, alert, no apparent distress Head: Normocephalic, atraumatic ENT: PERRL, EOMI, no pharyngeal exudate, mucous membranes moist Chest: Clear to auscultation, on room air, no adventitious breath sounds Cardiac: Regular rate and rhythm, no murmur, no JVD, normal peripheral pulses, good capillary refill Abdominal: NABS x 4 quadrants, soft, nontender to palpation, no rebound, guarding or tenderness Extremities: Normal inspection, 1+ peripheral edema up to mid anterior tibial region, worse ankle edema of the left vs the right leg, calfs nontender to palpation Psych: Normal mood and affect Neuro: AAO x 3, strength intact bilaterally and related 5/5, no motor deficits, speech is clear, no peripheral sensory deficits (Cindy Banks PA-C) Laboratory Results Last 24 Hours Test 10/23/16 08:27 10/23/16 12:12 10/23/16 17:34 10/23/16 20:05 Bedside Glucose 108 mg/dl 102 mg/dl 116 mg/dl 158 mg/dl Test 10/24/16 07:20 White Blood Count 12.22 K/uL Red Blood Count 4.58 M/uL Hemoglobin 13.4 g/dL Hematocrit 42.2 % Mean Corpuscular Volume 92.1 fL Mean Corpuscular Hemoglobin 29.3 pg Mean Corpuscular Hemoglobin Concent 31.8 g/dl RDW Standard Deviation 50.6 fL RDW Coefficient of Variation 15.1 % Platelet Count 233 K/uL Mean Platelet Volume 10.7 fL (Cindy Banks PA-C) Assessment and Plan 75 y/o male with a history of A. fib, systolic CHF, HTN, COPD, DM II, CKD stage III, CML (currently in remission), hypothyroidism, and gout who presented to the ED on 10/20 with sudden shortness of breath, sweating and nausea. Patient arrived to ED hypertensive and hypoxic. Patient does not wear supplemental oxygen at home. BP up to 249/139. The patient was given a total of 80 mg Lasix IV and did have good urine output per . The patient was also given 10 mg of hydralazine and 10 mg of labetalol for his blood pressure, which did improve to 156/83. Patient placed on BiPAP. Acute on chronic systolic CHF, acute respiratory failure with hypoxia-- improving. Last echocardiogram per outpatient and hospital records in 2011 showed LVEF of 25-30% - O2 sats stable at rest and on exertion -Echocardiogram shows moderate concentric LVH. Left ventricular systolic function normal. Moderate aortic insufficiency. Right ventricular systolic pressure normal. Compared to 08/2011 study. Left ventricular function has improved. AI has also improved. Aortic root dilation seen previously now resolved. -Continue Lasix 80 mg IV BID. Total outs= - 8.170 L -Imdur 120 mg PO qd -Daily weights -Strict I's & O's -PT/OT ordered Atrial fibrillation--currently rate controlled -EKGs q am and prn with chest pain -EKG on 10/22 shows 84 bpm, a-fib -Continue metoprolol succinate 200 mg PO qd -Continue Pradaxa 75 mg PO BID HTN urgency - Continue hydralazine to 50 mg PO TID - Lisinopril increased to 5 mg PO qd - SBPs remain elevated, greater than 170/ 90 this morning, may increase this lisinopril if necessary for more control. - Continue metoprolol succinate 200 mg PO daily COPD -Continue Combivent inhaler prn Diabetes mellitus type 2--last hemoglobin A1c checked 09/28/16 was 6.3 -Hold home NovoLog -Insulin sliding scale -Check BSGs q ac and qhs CKD stage III -Baseline Cr. ~1.6 , currently stable - Follow PRP Hypothyroidism -Continue Synthroid 50 mcg and 75 mcg PO alternating every other day Gout -Continue allopurinol 300 mg PO qd Acute conjunctivitis--improving. -Started on tobramycin drops as outpatient, will continue DVT prophylaxis: Pradaxa, ROSEMARIE hose and SCDs Code Status: FULL CODE Disposition: From home, dc when medically stable, likely tomorrow (Cindy Banks, VALERIE) Attending Attestation: Pt seen/examined, chart reviewed, care plan d/w RIKA Banks. I agree w/ the pemberton components of her documentation. Pt feels good - NO orthopnea, dyspnea, dyspnea on exertion, chest pain. VSS continues to remain net neg BPs high gen - nad neck - JVD resolved lungs - CTA b/l, no rales or wheeze ext - <1+ edema b/l Cr 1.6 A/P: acute/chronic systolic CHF - suspect we are nearly euvolemic. give 1 more dose of IV lasix tonight reassess tomorrow suspect he can d/c home tomorrow if BPs, etc are controlled Karina SUERO MD (Khang Suero MD)
[2016-10-24 08:16] VITALS: BP 171/94; PULSE 82; TEMP 36.6; O2SAT 92
[2016-10-24 08:16] LABS: BUN/CREATININE RATIO 15.5 (10-20); CALCIUM 9.1 mg/dl (8.5-10.1); CREATININE 1.7 mg/dl (0.60-1.40); POTASSIUM 3.4 mmol/L (3.5-5.1)
[2016-10-24] MEDS: ISOSORBIDE MONONITRATE 60 MG TABCR PO SCH (08:44)
[2016-10-24] MEDS: DABIGATRAN ELEXILATE 75 MG CAP PO SCH ×2 (08:44→20:19)
[2016-10-24] MEDS: ALLOPURINOL 300 MG TAB PO SCH (08:44)
[2016-10-24] MEDS: METOPROLOL SUCC 50MG EXT REL TAB PO SCH (08:45)
[2016-10-24] MEDS: PANTOprazole SOD 40 MG TAB PO SCH (08:45)
[2016-10-24] MEDS: MAGNESIUM OXIDE 400 MG TAB PO SCH ×2 (08:45→20:17)
[2016-10-24] MEDS: POTASSIUM CHLORIDE 20 MEQ TABCR PO SCH (08:46)
[2016-10-24] MEDS: CHOLECALCIFEROL 1000 INTER.UNIT TAB PO SCH (08:46)
[2016-10-24] MEDS: LISINOPRIL 5 MG TAB PO SCH (08:47)
[2016-10-24] MEDS: FUROSEMIDE INJ 80 MG in SYRINGE 0 ML IV SCH ×2 (08:48→18:31)
[2016-10-24 09:31] VITALS: O2SAT 92
[2016-10-24] MEDS ORDERED: POTASSIUM CHLORIDE 10 MEQ TABCR PO ONE (10:00)
[2016-10-24] MEDS ORDERED: POTASSIUM CHLORIDE 20 MEQ TABCR PO ONE (13:00)
[2016-10-24] MEDS ORDERED: POTASSIUM CHLORIDE 20 MEQ TABCR PO SCH (14:00)
[2016-10-24 16:00] VITALS: O2SAT 94
[2016-10-24 16:45] VITALS: BP 155/86; PULSE 85; TEMP 36.3; O2SAT 93
[2016-10-25] VITALS (8 sets, daily range): BP systolic 115–166; BP diastolic 64–90; PULSE 75–92; TEMP 36.6–36.8; O2SAT 91–98
[2016-10-25] MEDS: TOBRAMYCIN SULF 0.3% OP SOLN 5 ML BTL OP SCH ×6 (04:00→20:56)
[2016-10-25 05:58] LABS: HEMATOCRIT 40.2 % (42-52); MEAN CELL VOLUME 91.6 fL (80-100); MEAN CORPUSCULAR HEMOGLOBIN 29.6 pg (25-34); MEAN CORPUSCULAR HGB CONC 32.3 g/dl (32-36); MEAN PLATELET VOLUME 10.3 fL (7.4-10.4); PLATELET COUNT 199 K/uL (130-400); RED BLOOD COUNT 4.39 M/uL (4.7-6.1); WHITE BLOOD COUNT 11.04 K/uL (4.8-10.8)
[2016-10-25] MEDS: LEVOTHYROXINE 75 MCG TAB PO SCH (06:09)
[2016-10-25 06:31] LABS: BUN/CREATININE RATIO 18.8 (10-20); CALCIUM 8.8 mg/dl (8.5-10.1); CREATININE 1.6 mg/dl (0.60-1.40); POTASSIUM 3.5 mmol/L (3.5-5.1)
[2016-10-25] MEDS: INSULIN ASPART 100 UNITS/ML 3 ML PEN SC SCH ×4 (07:20→20:15)
[2016-10-25] MEDS: METOPROLOL SUCC 50MG EXT REL TAB PO SCH (07:47)
[2016-10-25] MEDS: DABIGATRAN ELEXILATE 75 MG CAP PO SCH ×2 (07:47→20:00)
[2016-10-25] MEDS: ALLOPURINOL 300 MG TAB PO SCH (07:48)
[2016-10-25] MEDS: ISOSORBIDE MONONITRATE 60 MG TABCR PO SCH (07:48)
[2016-10-25] MEDS: CHOLECALCIFEROL 1000 INTER.UNIT TAB PO SCH (07:49)
[2016-10-25] MEDS: LISINOPRIL 5 MG TAB PO SCH (07:50)
[2016-10-25] MEDS: MAGNESIUM OXIDE 400 MG TAB PO SCH ×2 (07:50→20:57)
[2016-10-25] MEDS: PANTOprazole SOD 40 MG TAB PO SCH (07:51)
[2016-10-25] MEDS ORDERED: FURO80TA63 PO (09:26)
--- NOTE | 2016-10-25 09:34 | Discharge Instructions ---
Discharge Instructions Date of Service Oct 25, 2016. Admission Reason for Admission: Short Of Breath Discharge Discharge Diagnosis / Problem: Acute exacerbation of CHF (congestive heart failure) Discharge Goals Goal(s): Decrease discomfort, Improve function, Increase independence, Improve disease control, Diagnostic testing, Therapeutic intervention Activity Recommendations Activity Limitations: resume your previous activity Lifting Limitations: no more than 25 pounds, gradually increase as tolerated Exercise/Sports Limitations: gradually increase as tolerated May Resume Sexual Activity: when tolerated Shower/Bathe: no limitations Driving or Machine Use: no limitations . Instructions / Follow-Up Instructions / Follow-Up You were admitted to the hospital after presenting to the Emergency Room with shortness of breath. You were diagnosed with an acute exacerbation of your chronic congestive heart failure. You received IV Lasix to diurese the excess fluid and help you breathe better. An echocardiogram, or ultrasound of your heart, was performed to assess your heart function. This actually showed great improvement compared to a previous echocardiogram done in 2011. Upon arrival to the hospital, you had a very elevated blood pressure. This was improved initially with IV medications. Your blood pressure remained elevated, so your home blood pressure medications were all increased for better control. The changes made to your blood pressure medications are noted below. Medications: *Your Lasix (furosemide) dose has been increased to 80 mg by mouth twice a day. *Your hydralazine has been increased to 50 mg by mouth three times a day. *Your Imdur (isosorbide) has been increased to 120 mg by mouth once a day. *Please continue taking your other home medications as prescribed Recommendations: *Please watch your diet intake of salt/sodium. It is recommended that you follow a low salt diet to prevent future exacerbations of your congestive heart failure. Follow up: *Please follow up with your primary care provider, Dr. Julio, in 1 week regarding your hospital stay and changes in your medication. Congestive Heart Failure Instructions: Call 911 and go to the Emergency Room if: * You have tightness or pain in your chest that does not go away with rest or Nitroglycerin * You are very short of breath even with rest Call your doctor if any of the following symptoms or problems start or get worse: * Shortness of breath or difficulty breathing * Wake up at night short of breath * Chest pain * Cough * Swelling of your hands, fee, or legs * More fatigued or tired with your normal activity * Palpitations - sudden fast heart beats WEIGHT * Weigh yourself every morning after using the bathroom. * Use the same scale. * Wear the same amount of clothing. * Write your weight down on your chart. * Call your doctor if you gain more than 2-3 pounds in 1-2 days. MEDICATIONS * Use this discharge instruction sheet for instructions. * Take your medications at the time your doctor ordered. * Do not skip a dose of your medicines. * If you miss a dose of medicine, take as soon as possible, but DO NOT DOUBLE A DOSE. * Read your medicine information when you get home. * Know all of the side effects of your medicine. * Call your doctor's office if you have any side effects. * Be sure all of your doctors know what medicine and herbs you take (including cold, flu, and herbal medicine). * Pain Medicine: If you do not get relief from your pain, please call your doctor for help. Take the following with you to your follow-up doctor appointments: * Weight Chart * Medication List * List of questions Do not drink excessive alcohol, beer or wine. Current Hospital Diet Patient's current hospital diet: Low Sodium Diet (2gm Na), Diabetes Type 2 Diet Discharge Diet Recommended Diet: Low Sodium Diet (2gm Na), Diabetes Type 2 Diet Procedures Procedures Performed: Echocardiogram Pending Studies Studies pending at discharge: yes List of pending studies: Echocardiogram Laboratory Results Hemoglobin A1c Test 09/28/16 13:20 Range/Units Estimated Average Glucose 134 mg/dl Hemoglobin A1c 6.3 H 4.5-5.6 % Lipid Panel Test 09/28/16 13:20 Range/Units Triglycerides Level 107 0-150 mg/dl Cholesterol Level 108 0-200 mg/dl HDL Cholesterol 45 mg/dl Cholesterol/HDL Ratio 2.4 LDL Cholesterol, Calculated 42 mg/dl Medical Emergencies . Who to Call and When: Medical Emergencies: If at any time you feel your situation is an emergency, please call 911 immediately. . Non-Emergent Contact Non-Emergency issues call your: Primary Care Provider Call Non-Emergent contact if: you have a fever, your pain is not controlled, your pain is worsening, you have any medication questions Past History Medical & Surgical History: (1) Acute on chronic systolic heart failure (2) Chronic atrial fibrillation (3) Chronic myeloid leukemia, disease (4) Heart disease . "Provider Documentation" section prepared by Nancy Banks. VTE Core Measure Inpt VTE Proph given/why not?: Other Anticoagulation (Pradaxa), T.E.D. Stockings, SCD's
--- NOTE | 2016-10-25 09:54 | Discharge Summary ---
Discharge Summary Date of Service Oct 25, 2016. (Cindy Banks PA-C) Discharge Summary Admission Date: Oct 20, 2016 at 08:55 Discharge Date: Oct 25, 2016 Discharge Disposition: Home Principal Diagnosis: Acute Exacerbation of CHF Problems/Secondary Diagnoses: Afib, systolic CHF, HTN, COPD, DM II, CKD stage III, CML (currently in remission ), hypothyroidism, and gout Immunizations: Have You Had Influenza Vaccine: Yes Influenza Vaccine Date: Jun 03, 2011 History of Tetanus Vaccine?: Yes History of Pneumococcal: Yes Pneumococcal Date: Oct 01, 2010 History of Hepatitis B Vaccine: No Procedures: CHEST ONE VIEW PORTABLE 10/20/16 IMPRESSION: Cardiomegaly, bilateral pleural effusions, and bilateral pulmonary airspace opacities. Diagnostic considerations include bibasilar edema/atelectasis versus pneumonia. Clinical and radiographic follow-up is recommended. Echocardiogram 10/22/16 * -- Conclusions -- * There is moderate concentric left ventricular hypertrophy. * Left ventricular systolic function is normal. * Poorly characterized AI, likely moderate * Right ventricular systolic pressure is normal. * When compared to an echocardiogram from 08/2011, the LV function has improved. Degree of AI has improved and aortic root dilation seen previously has resolved Consultations: None (Cindy Banks PA-C) Medication Reconciliation Changed Medications: Furosemide (Lasix) 80 Mg Tab 80 MG PO QPM for 30 Days, #30 DOSE (Changed from: 40 MG) Continued Medications: Acetaminophen (Tylenol) 500 Mg Tab 1000 MG PO UD PRN for Pain, TAB Allopurinol (Allopurinol) 300 Mg Tab 300 MG PO DAILY Cholecalciferol (Vitamin D3) 2,000 Unit Cap 1 CAP PO DAILY for 90 Days, #90 CAP 3 Refills Dabigatran Etexilate Mesylate (Pradaxa) 150 Mg Cap 75 MG PO BID Furosemide (Lasix) 80 Mg Tab 80 MG PO QAM, TAB Hydralazine Hcl (Apresoline) 25 Mg Tab 25 MG PO TID, TAB Insulin Aspart 70/30 (Novolog Mix 70/30) Susp 30 UNITS SC BID Ipratropium-Albuterol (Combivent Respimat) 1 Aer Aer 2 PUFFS INH Q6H PRN for SOB/Wheezing, INH Isosorbide Mononitrate Ext Rel (Imdur Ext Rel) 60 Mg Ertab 60 MG PO DAILY Levothyroxine Sodium (Levothyroxine Sodium) 75 Mcg Tab 75 MCG PO Q2D Levothyroxine Sodium (Levothyroxine Sodium) 50 Mcg Tab 50 MCG PO Q2D Lisinopril (Lisinopril) 2.5 Mg Tab 2.5 MG PO DAILY Magnesium Oxide (Mg Supplement (Magnesium) 500 Mg Tab 500 MG PO BID Metoprolol Succinate (Toprol Xl) 200 Mg Tab 200 MG PO DAILY Polyethylene Glycol 3350 (Miralax) 1 Pow Pow 17 GM PO DAILY PRN for Constipation, #527 GM Potassium Ext Rel (Klor-Con) 20 Meq Tabcr 40 MEQ PO BID, TAB Zolpidem Tartrate (Zolpidem Tartrate) 5 Mg Tab 5 MG PO HS PRN for nsomnia for 30 Days, #30 TAB Discharge Exam The patient was seen and examined this morning. Pt reports doing well. He has some gas this morning, feels his breakfast has made him bloated as he's burping and passing gas. He denies chest pain, shortness of breath or lightheadedness. He feels his breathing is overall much improved and that his swelling is better. Discussion was held with the pt regarding increase of his oral lasix and all his questions and concerns were addressed. Review of Systems: Constitutional: No chills, No fever, No weight loss Eyes: No diplopia, No redness ENT: No sore throat, No trouble swallowing Respiratory: No cough, No dyspnea at rest, No dyspnea on exertion, No shortness of breath Cardiovascular: No chest pain, No palpitations Abdomen: No constipation, No diarrhea, No nausea, No pain, No vomiting Musculoskeletal: No joint pain, No swelling Genitourinary - Female: No dysuria Neurologic: No balance problems, No numbness/tingling, No vertigo Psychiatric: No depression symptoms Endocrine: No fatigue Integumentary: No itch, No rash Physical Exam: General Appearance: WD/WN, no apparent distress, + obese Eyes: PERRL, EOMI ENT: hearing grossly normal, pharynx normal Neck: supple, no JVD Respiratory/Chest: lungs clear, no respiratory distress, no accessory muscle use Cardiovascular: normal peripheral pulses, + irregularly irregular (rate controlled) Abdomen / GI: normal bowel sounds, non tender, soft Extremities: normal inspection, no calf tenderness, + pedal edema (1+ pitting edema around ankles) Neurologic/Psychiatric: no motor/sensory deficits, alert, oriented x 3 Skin: normal color, warm/dry (Cindy Banks PA-C) Hospital Course H&P per Bernarda Saenz PA-C History of Present Illness Source: patient, spouse ( at bedside), clinic records, hospital records This is a 75 y/o male with a history of A. fib, systolic CHF, HTN, COPD, DM II, CKD stage III, CML (currently in remission), hypothyroidism, and gout who presented to the ED on 10/20 with sudden shortness of breath, sweating and nausea. Patient states that he woke up in the middle of the night feeling that he could not breathe. The patient also became diaphoretic with nausea. He reports vomiting a white substance. He states that he felt weak and fatigued and near syncopal but denies any loss of consciousness. The patient complains of orthopnea. He states that he had noticed increased swelling in his legs over the last few days and has gained 2 pounds in the last week. The patient has a history of chronic systolic CHF and takes Lasix at home. He states he's been taking his Lasix as prescribed. The patient denies any chest pain, pressure, tightness. He does complain of an intermittent crampy, right-sided abdominal pain when he tries to get up out of bed. Patient's states that they have been away from home visiting the patient's sister for the last 4 days. She reports that they were eating out a lot during their trip, and that the patient does not closely watch what he eats. The patient denies fevers, chills, chest pain, palpitations, claudication, cough, wheezing, dysuria, hematuria, urinary retention, paralysis, numbness and tingling. PE: Vital Signs Date Time Temp Pulse Resp B/P Pulse Ox O2 Delivery O2 Flow Rate FiO2 10/20/16 08:36 86 28 156/83 95 BiPAP 10/20/16 08:11 98 28 172/79 96 BiPAP 10/20/16 07:53 96 26 199/118 99 BiPAP 10/20/16 07:27 249/139 10/20/16 07:26 206/140 10/20/16 07:18 96 20 227/112 95 Nasal Cannula 3.0 10/20/16 06:57 90 36 243/118 94 Nasal Cannula 3.0 10/20/16 06:57 94 Nasal Cannula 3.0 10/20/16 06:07 96 Nasal Cannula 3.0 10/20/16 06:07 36.2 82 22 198/99 96 Nasal Cannula 3.0 10/20/16 06:02 82 General Appearance: WD/WN, no apparent distress, + obese Head: normocephalic, atraumatic Eyes: PERRL, EOMI, + pertinent finding (acute conjunctivitis, R>L) ENT: normal ENT inspection, hearing grossly normal, + pertinent finding (on BIPAP) Neck: supple, trachea midline, + JVD Respiratory/Chest: no respiratory distress, + decreased breath sounds ( throughout), + wheezing (cardiac wheeze scattered) Cardiovascular: no gallop, no murmur, + irregularly irregular (rate controlled) Abdomen/GI: normal bowel sounds, soft, + tenderness (epigastric area TTP) Extremities/Musculoskelatal: normal inspection, no calf tenderness, + swelling (2+ pitting edema) Neurologic/Psych: alert, normal mood/affect, oriented x 3 Skin: normal color, warm/dry, no rash, + pertinent finding (non-diaphoretic during my exam) Hospital Course: 75 y/o male with a history of A. fib, systolic CHF, HTN, COPD, DM II, CKD stage III, CML (currently in remission), hypothyroidism, and gout who presented to the ED on 10/20 with sudden shortness of breath, sweating and nausea. Patient arrived to ED hypertensive and hypoxic. Patient does not wear supplemental oxygen at home. BP up to 249/139. The patient was given a total of 80 mg Lasix IV and did have good urine output per . The patient was also given 10 mg of hydralazine and 10 mg of labetalol for his blood pressure, which did improve to 156/83. Patient placed on BiPAP. Acute on chronic systolic CHF, acute respiratory failure with hypoxia-- improving. Last echocardiogram per outpatient and hospital records in 2011 showed LVEF of 25-30% - O2 sats stable at rest and on exertion -Echocardiogram shows moderate concentric LVH. Left ventricular systolic function normal. Moderate aortic insufficiency. Right ventricular systolic pressure normal. Compared to 08/2011 study. Left ventricular function has improved. AI has also improved. Aortic root dilation seen previously now resolved. - Total outs= - 8.5L : Pt was transitioned back to oral lasix, should take 80 mg Qam and Qpm upon discharge with close follow up with his PCP. He will also need to track daily weights. CHF instructions have been provided in the patient instruction. -Continue Imdur 120 mg PO qd -PT/OT ordered- ok to return home Atrial fibrillation--currently rate controlled -EKGs q am and prn with chest pain -EKG on 10/22 shows 84 bpm, a-fib -Continue metoprolol succinate 200 mg PO qd -Continue Pradaxa 75 mg PO BID HTN urgency - Continue hydralazine to 50 mg PO TID - Lisinopril increased to 5 mg PO qd - SBPs remain elevated, greater than 170/ 90 this morning, may increase this lisinopril if necessary for more control. - Continue metoprolol succinate 200 mg PO daily COPD -Continue Combivent inhaler prn Diabetes mellitus type 2--last hemoglobin A1c checked 09/28/16 was 6.3 -Hold home NovoLog -Insulin sliding scale -Check BSGs q ac and qhs CKD stage III -Baseline Cr. ~1.6 , currently stable - Follow PRP Hypothyroidism -Continue Synthroid 50 mcg and 75 mcg PO alternating every other day Gout -Continue allopurinol 300 mg PO qd Acute conjunctivitis--improving. -Started on tobramycin drops as outpatient, will continue DVT prophylaxis: Pradaxa, ROSEMARIE ashbye and SCDs Code Status: FULL CODE Disposition: From home, [place] home today Total Time Spent: Greater than 30 minutes This includes examination of the patient, discharge planning, medication reconciliation, and communication with other providers. (Cindy Banks PA-C) Discharge Instructions Please refer to the electronic Patient Visit Report (Discharge Instructions) for additional information. (Cindy Banks PA-C) Follow-Up Follow up with your Primary Care Provider within 1 week. (Cindy Banks PA-C) Additional Copies To Errol Julio M.D.
[2016-10-25] MEDS: FUROSEMIDE INJ 80 MG in SYRINGE 0 ML IV SCH (10:15)
[2016-10-25] MEDS ORDERED: POTASSIUM CHLORIDE 10 MEQ TABCR PO ONE ×2 (11:00→17:30)
[2016-10-25] MEDS ORDERED: FUROSEMIDE INJ 80 MG in SYRINGE 0 ML IV ONE ×2 (11:00→17:45)
--- NOTE | 2016-10-25 11:09 | DIAGNOSTIC IMAGING REPORT ---
CHEST 2 VIEWS ROUTINE CLINICAL HISTORY: Congestive failure COMPARISON STUDY: 10/12/2016 FINDINGS: The heart is enlarged. There are bilateral pleural effusions left greater than right. There is no lobar consolidation. There is improving aeration the left lower lobe. There is mild left basilar atelectasis. There is no current evidence of congestive failure..[ IMPRESSION: Cardiomegaly and bilateral pleural effusions left greater than right. No current evidence for failure. No evidence of lobar consolidation Electronically signed by: Uday Perdomo M.D. 10/25/2016 11:08 AM Dictated Date/Time: 10/25/2016 11:06 AM
--- NOTE | 2016-10-25 15:15 | Hospitalist Progress Note ---
Hospitalist Progress Note Date of Service Oct 25, 2016. (Cindy Banks PA-C) Subjective The patient was seen and examined this morning. Pt reports doing well. He has some gas this morning, feels his breakfast has made him bloated as he's burping and passing gas. He denies chest pain, shortness of breath or lightheadedness. He feels his breathing is overall much improved and that his swelling is better. Discussion was held with the pt regarding increase of his oral lasix and all his questions and concerns were addressed. Review of Systems: Constitutional: No chills, No fever, No weight loss Eyes: No diplopia, No redness ENT: No sore throat, No trouble swallowing Respiratory: No cough, No dyspnea at rest, No dyspnea on exertion, No shortness of breath Cardiovascular: No chest pain, No palpitations Abdomen: No constipation, No diarrhea, No nausea, No pain, No vomiting Musculoskeletal: No joint pain, No swelling Genitourinary - Female: No dysuria Neurologic: No balance problems, No numbness/tingling, No vertigo Psychiatric: No depression symptoms Endocrine: No fatigue Integumentary: No itch, No rash Physical Exam: General Appearance: WD/WN, no apparent distress, + obese Eyes: PERRL, EOMI ENT: hearing grossly normal, pharynx normal Neck: supple, no JVD Respiratory/Chest: lungs clear, no respiratory distress, no accessory muscle use Cardiovascular: normal peripheral pulses, + irregularly irregular (rate controlled) Abdomen / GI: normal bowel sounds, non tender, soft Extremities: normal inspection, no calf tenderness, + pedal edema (1+ pitting edema around ankles) Neurologic/Psychiatric: no motor/sensory deficits, alert, oriented x 3 Skin: normal color, warm/dry (Cindy Banks PA-C) Objective Vital Signs Date Time Temp Pulse Resp B/P Pulse Ox O2 Delivery O2 Flow Rate FiO2 10/25/16 11:32 126/79 10/25/16 09:38 36.7 89 20 92 Room Air 10/25/16 08:02 36.7 89 20 166/90 92 Room Air 10/25/16 08:00 Room Air 10/25/16 06:27 142/84 98 10/25/16 00:13 36.6 89 20 160/84 92 Room Air 10/25/16 00:00 94 Room Air 40 10/24/16 16:45 36.3 85 20 155/86 93 Room Air 10/24/16 16:00 94 Room Air 40 (Cindy Banks PA-C) Laboratory Results Last 24 Hours Test 10/24/16 16:34 10/24/16 20:14 10/25/16 05:36 10/25/16 07:18 Bedside Glucose 119 mg/dl 144 mg/dl 110 mg/dl White Blood Count 11.04 K/uL Red Blood Count 4.39 M/uL Hemoglobin 13.0 g/dL Hematocrit 40.2 % Mean Corpuscular Volume 91.6 fL Mean Corpuscular Hemoglobin 29.6 pg Mean Corpuscular Hemoglobin Concent 32.3 g/dl RDW Standard Deviation 50.4 fL RDW Coefficient of Variation 14.9 % Platelet Count 199 K/uL Mean Platelet Volume 10.3 fL Sodium Level 142 mmol/L Potassium Level 3.5 mmol/L Chloride Level 104 mmol/L Carbon Dioxide Level 31 mmol/L Anion Gap 7.0 mmol/L Blood Urea Nitrogen 30 mg/dl Creatinine 1.60 mg/dl Est Creatinine Clear Calc Drug Dose 51.4 ml/min Estimated GFR () 48.5 Estimated GFR (Non- 41.8 BUN/Creatinine Ratio 18.8 Random Glucose 128 mg/dl Calcium Level 8.8 mg/dl Test 10/25/16 11:42 Bedside Glucose 188 mg/dl (Cindy Banks PA-C) Assessment and Plan 75 y/o male with a history of A. fib, systolic CHF, HTN, COPD, DM II, CKD stage III, CML (currently in remission), hypothyroidism, and gout who presented to the ED on 10/20 with sudden shortness of breath, sweating and nausea. Patient arrived to ED hypertensive and hypoxic. Patient does not wear supplemental oxygen at home. BP up to 249/139. The patient was given a total of 80 mg Lasix IV and did have good urine output per . The patient was also given 10 mg of hydralazine and 10 mg of labetalol for his blood pressure, which did improve to 156/83. Patient placed on BiPAP. Acute on chronic systolic CHF, acute respiratory failure with hypoxia-- improving. Last echocardiogram per outpatient and hospital records in 2011 showed LVEF of 25-30% - O2 sats stable at rest and on exertion -Echocardiogram shows moderate concentric LVH. Left ventricular systolic function normal. Moderate aortic insufficiency. Right ventricular systolic pressure normal. Compared to 08/2011 study. Left ventricular function has improved. AI has also improved. Aortic root dilation seen previously now resolved. - Total outs= - 9.0L : Pt was transitioned back to oral lasix, gave another IV dose of lasix this morning and he put out another 1 L. Its likely that I&Os weren't accurate yesterday as the pt told me he was missing the urinal. Upon discharge will need increased Lasix Po: take 80 mg Qam and Qpm upon discharge with close follow up with his PCP. He will also need to track daily weights. Will give one more day iv diuresis, likely will be stable for discharge tomorrow. - Cont strict I&Os - Continue Imdur 120 mg PO qd - PT/OT ordered Atrial fibrillation--currently rate controlled -EKGs q am and prn with chest pain -EKG on 10/22 shows 84 bpm, a-fib -Continue metoprolol succinate 200 mg PO qd -Continue Pradaxa 75 mg PO BID HTN urgency - Continue hydralazine to 50 mg PO TID - Lisinopril increased to 5 mg PO qd - SBPs remain elevated, greater than 170/ 90 this morning, may increase this lisinopril if necessary for more control. - Continue metoprolol succinate 200 mg PO daily COPD -Continue Combivent inhaler prn Diabetes mellitus type 2--last hemoglobin A1c checked 09/28/16 was 6.3 -Hold home NovoLog -Insulin sliding scale -Check BSGs q ac and qhs CKD stage III -Baseline Cr. ~1.6 , currently stable - Follow PRP Hypothyroidism -Continue Synthroid 50 mcg and 75 mcg PO alternating every other day Gout -Continue allopurinol 300 mg PO qd Acute conjunctivitis--improving. -Started on tobramycin drops as outpatient, will continue DVT prophylaxis: Pradaxa, ROSEMARIE damon and SCDs Code Status: FULL CODE Disposition: From home, likely discharge home tomorrow. (Cindy Banks, VALERIE) Attending Attestation: Pt seen/examined, chart reviewed, care plan d/w RIKA Banks. I agree w/ the pemberton components of her documentation. Pt feels OK but c/o "gas", fatigue, and still an element of orthopnea/dyspnea. I/O: weight down nearly 20 pounds since admission net neg 9+ Liters since admission VSS BPs high again HRs nl no stool in 4+ days gen - nad neck - JVD resolved lungs - mild end-exp wheeze, decreased BS bases heart - irregular, s1, s2 abd - slight distension ext - <1+ edema b/l Cr 1.6 again A/P: acute/chronic systolic CHF - markedly improved clinically & radiographically since admission. still w/ orthopnea today, however. cxr today shows improved pulmonary edema; residual small effusion present given his preserved/stable creatinine and ongoing orthopnea elected to keep him 1 more day for additional IV diuresis and titration of meds for BP control due to c/o fatigue and feeling cold obtained the cxr (to exclude pneumonia process) and u/a today If, despite adequate diuresis, he continues to have orthopnea, etc he would need additional w/u constipation - add miralax and senna in AM; this is likely causing his "gas" issue Khang Valentino MD (Khang Valentino MD)
[2016-10-25] MEDS: ACETAMINOPHEN 325 MG TAB PO PRN (15:43)
[2016-10-25 18:23] LABS: URINE APPEARANCE CLEAR (CLEAR); URINE BILIRUBIN NEG (NEG); URINE COLOR YELLOW; URINE NITRITE NEG (NEG); URINE SPECIFIC GRAVITY 1.015 (1.000-1.030); UROBILINOGEN NEG (NEG)
[2016-10-25 18:39] LABS: MANUAL MICROSCOPIC REQUIRED? NO; REVIEW REQ? NO
[2016-10-26] MEDS: TOBRAMYCIN SULF 0.3% OP SOLN 5 ML BTL OP SCH ×4 (04:15→11:35)
[2016-10-26] MEDS: LEVOTHYROXINE 50 MCG TAB PO SCH (07:07)
[2016-10-26 07:37] VITALS: BP 158/82; PULSE 84; TEMP 36.3; O2SAT 93
[2016-10-26] MEDS ORDERED: POLYETHYLENE (MIRALAX) 17 GM PACK PO SCH (08:00)
[2016-10-26] MEDS ORDERED: SENNA 8.6 MG TAB PO SCH (08:00)
[2016-10-26 08:01] LABS: BUN/CREATININE RATIO 19.4 (10-20); CREATININE 1.8 mg/dl (0.60-1.40); MAGNESIUM 2.3 mg/dl (1.8-2.4); POTASSIUM 3.6 mmol/L (3.5-5.1)
[2016-10-26 08:02] LABS: PHOSPHORUS 2.6 mg/dl (2.5-4.9)
[2016-10-26] MEDS: INSULIN ASPART 100 UNITS/ML 3 ML PEN SC SCH (08:33)
[2016-10-26] MEDS ORDERED: FUROSEMIDE 80 MG TAB PO SCH (09:00)
[2016-10-26] MEDS: PANTOprazole SOD 40 MG TAB PO SCH (09:10)
[2016-10-26] MEDS: DABIGATRAN ELEXILATE 75 MG CAP PO SCH (09:10)
[2016-10-26] MEDS: MAGNESIUM OXIDE 400 MG TAB PO SCH (09:10)
[2016-10-26] MEDS: ALLOPURINOL 300 MG TAB PO SCH (09:11)
[2016-10-26] MEDS: CHOLECALCIFEROL 1000 INTER.UNIT TAB PO SCH (09:11)
[2016-10-26] MEDS: METOPROLOL SUCC 50MG EXT REL TAB PO SCH (09:11)
[2016-10-26] MEDS: LISINOPRIL 5 MG TAB PO SCH (09:11)
[2016-10-26] MEDS: ISOSORBIDE MONONITRATE 60 MG TABCR PO SCH (09:43)
[2016-10-26] MEDS ORDERED: APR50 PO (10:20)
[2016-10-26] MEDS ORDERED: IMDSR60 PO (10:20)
[2016-10-26] MEDS ORDERED: LSN5 PO (10:20)
--- NOTE | 2016-10-26 10:32 | Discharge Summary ---
Discharge Summary Date of Service Oct 26, 2016. (Bernarda Saenz PA-C) Discharge Summary Admission Date: Oct 20, 2016 at 08:55 Discharge Date: Oct 26, 2016 Discharge Disposition: Home Principal Diagnosis: Acute on chronic systolic CHF Immunizations: Have You Had Influenza Vaccine: Yes Influenza Vaccine Date: Jun 03, 2011 History of Tetanus Vaccine?: Yes History of Pneumococcal: Yes Pneumococcal Date: Oct 01, 2010 History of Hepatitis B Vaccine: No Procedures: ECHOCARDIOGRAM REPORT Toyah, PA Patient: JAMEEL BARCENAS Admit Date: 10/20/1702/28/17 Med Rec: [id number] Location: [facility] Acct ID: [id number] Room/Bed: [facility] Date: 1940 Sex: M Report #: [id number] Age: 75 Test: Fam Phy: Errol Julio M.D. Mechanics Supervisor: Att Phy: Khang Valentino MD Diagnosis: SHORT OF BREATH La Phy: Errol Julio M.D. Admit Phy: Khang Valentino MD Interpreting Phy: Lucien Thompson MD Ordering Phy: CC: Lucien Thompson MD Siuta, Jonathan R., MD Endcc: [~ rep ct labl] Page 5 of 5 p: [~ rep prt dt last] [~ rep prt tm last] ECHOCARDIOGRAM REPORT Toyah, PA Patient: JAMEEL BARCENAS Admit Date: 10/20/1702/28/17 Med Rec: [id number] Location: [facility] Acct ID: [id number] Room/Bed: [facility] Date: 1940 Sex: M Report #: [id number] Age: 75 Test: Fam Phy: Errol Julio M.D. Mechanics Supervisor: Att Phy: Khang Valentino MD Diagnosis: SHORT OF BREATH La Phy: Errol Julio M.D. Admit Phy: Khang Valentino MD Interpreting Phy: Lucien Thompson MD Ordering Phy: CC: Donna, MD Chicho Akins Jonathan R., MD [facility]: [~ rep ct labl] Page 1 of 1 p: [~ rep prt dt last] [~ rep prt tm last] *NOTICE TO RECEIVING [employer] This information is strictly Confidential and protected under [place] law. [place] law prohibits you from making any further disclosure of this information unless further disclosure is expressly permitted by the written consent of the person to whom it pertains or is authorized by law. A general authorization for the release of medical or other information is not sufficient for this purpose. Hospital accepts no responsibility if the information is made available to any other person, INCLUDING THE PATIENT. Interpretation Summary * Name: JAMEEL BARCENAS Study Date: 10/22/2016 08:37 AM BP: 169/102 mmHg * Patient Location: [facility]\S\45\S\2 HR: 88 * : 1940 (M/d/yyyy) Gender: Male Height: 70 in * Age: 75 yrs Ethnicity: [place] Weight: 271 lb * Ordering Physician: Bernarda Saenz * Referring Physician: Self, Referred * Performed By: Mark Vale RCS * * Reason For Study: CHF * BSA: 2.4 m2 * -- Conclusions -- * There is moderate concentric left ventricular hypertrophy. * Left ventricular systolic function is normal. * Poorly characterized AI, likely moderate * Right ventricular systolic pressure is normal. * When compared to an echocardiogram from 08/2011, the LV function has improved. Degree of AI has improved and aortic root dilation seen previously has resolved Procedure Details * A complete two-dimensional transthoracic echocardiogram was performed (2D, M- mode, Doppler and color flow Doppler). * The study was technically difficult. * A contrast injection of Definity was performed to improve assessment of LV function. * Contrast was injected into an intravenous site in the right arm. * One vial of Definity ultrasound contrast was diluted in normal saline to a total volume of 10 ml. A total of '2' ml of solution was administered during imaging. * Lot # [id number] of Definity utilized for procedure. * Expiration date 1APR18. * The attending nurse who injected the contrast agent was Max Nunes RN. Left Ventricle * The left ventricle is grossly normal size. * There is moderate concentric left ventricular hypertrophy. * Ejection Fraction = 50-55%. * Left ventricular systolic function is normal. Right Ventricle * The right ventricle is grossly normal size. * The right ventricular systolic function is normal. Atria * The left atrium is severely dilated. * The right atrium is severely dilated. Mitral Valve * The mitral valve is not well visualized. * There is trace mitral regurgitation. Tricuspid Valve * The tricuspid valve is not well visualized. * There is mild tricuspid regurgitation. * Right ventricular systolic pressure is normal. Aortic Valve * The aortic valve is not well visualized. * No hemodynamically significant valvular aortic stenosis. * Poorly characterized AI, likely moderate Great Vessels * The aortic root is normal size. Pericardium/Pleural * There is no pericardial effusion. MMode 2D Measurements and Calculations IVSd 2.0 cm IVSs 2.6 cm LVIDd 5.5 cm LVIDs 4.0 cm LVPWd 1.6 cm LVPWs 1.9 cm IVS/LVPW 1.2 FS 26.5 % EDV(Teich) 146.4 ml ESV(Teich) 71.2 ml EF(Teich) 51.3 % EDV(cubed) 164.8 ml ESV(cubed) 65.4 ml EF(cubed) 60.3 % % IVS thick 27.0 % % LVPW thick 14.8 % LV mass(C)d 503.7 grams LV mass(C)dI 212.1 grams/m\S\2 LV mass(C)s 457.9 grams LV mass(C)sI 192.8 grams/m\S\2 CO(Teich) 7.4 l/min CI(Teich) 3.1 l/min/m\S\2 SV(Teich) 75.1 ml SI(Teich) 31.6 ml/m\S\2 CO(cubed) 9.7 l/min CI(cubed) 4.1 l/min/m\S\2 SV(cubed) 99.4 ml SI(cubed) 41.8 ml/m\S\2 Ao root diam 3.5 cm Ao root area 9.6 cm\S\2 ACS 1.8 cm LA dimension 5.9 cm asc Aorta Diam 4.3 cm LA/Ao 1.7 LVAd ap4 35.3 cm\S\2 LVLd ap4 8.2 cm EDV(MOD-sp4) 123.0 ml LVAs ap4 25.3 cm\S\2 LVLs ap4 7.9 cm ESV(MOD-sp4) 67.0 ml EF(MOD-sp4) 45.5 % LVAd ap2 34.8 cm\S\2 LVLd ap2 8.4 cm EDV(MOD-sp2) 120.0 ml LVAs ap2 23.4 cm\S\2 LVLs ap2 7.6 cm ESV(MOD-sp2) 60.0 ml EF(MOD-sp2) 50.0 % CO(MOD-sp4) 5.5 l/min CI(MOD-sp4) 2.3 l/min/m\S\2 SV(MOD-sp4) 56.0 ml SI(MOD-sp4) 23.6 ml/m\S\2 CO(MOD-sp2) 5.9 l/min CI(MOD-sp2) 2.5 l/min/m\S\2 SV(MOD-sp2) 60.0 ml SI(MOD-sp2) 25.3 ml/m\S\2 Doppler Measurements and Calculations MV E max sangeetha 142.6 cm/sec MV P1/2t max sangeetha 149.4 cm/sec MV P1/2t 96.6 msec MVA(P1/2t) 2.3 cm\S\2 MV dec slope 453.2 cm/sec\S\2 MV dec time 0.20 sec Ao V2 max 201.5 cm/sec Ao max PG 16.2 mmHg Ao max PG (full) 10.4 mmHg AI max sangeetha 497.3 cm/sec AI max PG 99.1 mmHg AI dec slope 311.3 cm/sec\S\2 AI P1/2t 468.0 msec LV V1 max PG 5.8 mmHg LV V1 max 120.9 cm/sec MR max sangeetha 177.4 cm/sec MR max PG 12.6 mmHg PA V2 max 83.4 cm/sec PA max PG 2.8 mmHg TR max sangeetha 181.3 cm/sec Created: Initialized: 10/22/16; 1210 <Electronically signed by Lucien Thompson MD> Signed: 10/23/16 1306 Lucien Thompson MD The status of this report is Signed. Draft = Not yet reviewed or approved by Legal Adviser. Signed = Reviewed and approved by Legal Adviser. (Bernarda Saenz ., PAErikaC) Medication Reconciliation New Medications: Hydralazine HCl (Hydralazine HCl) 50 Mg Tab 50 MG PO TID for 30 Days, #90 TAB Take 1 tablet by mouth three times a day. Isosorbide Mononitrate (Isosorbide Mononitrate ER) 60 Mg Tab 120 MG PO QAM for 30 Days, #30 TAB Lisinopril (Lisinopril) 5 Mg Tab 5 MG PO DAILY for 30 Days, #30 TAB Take 1 tablet by mouth once daily. Changed Medications: Furosemide (Lasix) 80 Mg Tab 80 MG PO QPM for 30 Days, #30 DOSE (Changed from: 40 MG) Continued Medications: Acetaminophen (Tylenol) 500 Mg Tab 1000 MG PO UD PRN for Pain, TAB Allopurinol (Allopurinol) 300 Mg Tab 300 MG PO DAILY Cholecalciferol (Vitamin D3) 2,000 Unit Cap 1 CAP PO DAILY for 90 Days, #90 CAP 3 Refills Dabigatran Etexilate Mesylate (Pradaxa) 150 Mg Cap 75 MG PO BID Furosemide (Lasix) 80 Mg Tab 80 MG PO QAM, TAB Insulin Aspart 70/30 (Novolog Mix 70/30) Susp 30 UNITS SC BID Ipratropium-Albuterol (Combivent Respimat) 1 Aer Aer 2 PUFFS INH Q6H PRN for SOB/Wheezing, INH Levothyroxine Sodium (Levothyroxine Sodium) 75 Mcg Tab 75 MCG PO Q2D Levothyroxine Sodium (Levothyroxine Sodium) 50 Mcg Tab 50 MCG PO Q2D Magnesium Oxide (Mg Supplement (Magnesium) 500 Mg Tab 500 MG PO BID Metoprolol Succinate (Toprol Xl) 200 Mg Tab 200 MG PO DAILY Polyethylene Glycol 3350 (Miralax) 1 Pow Pow 17 GM PO DAILY PRN for Constipation, #527 GM Potassium Ext Rel (Klor-Con) 20 Meq Tabcr 40 MEQ PO BID, TAB Zolpidem Tartrate (Zolpidem Tartrate) 5 Mg Tab 5 MG PO HS PRN for nsomnia for 30 Days, #30 TAB Discontinued Medications: Hydralazine Hcl (Apresoline) 25 Mg Tab 25 MG PO TID, TAB Isosorbide Mononitrate Ext Rel (Imdur Ext Rel) 60 Mg Ertab 60 MG PO DAILY Lisinopril (Lisinopril) 2.5 Mg Tab 2.5 MG PO DAILY Referrals At Discharge Follow up Referrals: Family Practice Referral - Within 1 Week with Errol Julio M.D. Discharge Exam Patient reports feeling well. He denies any shortness of breath, orthopnea or PND. The patient is eager to be discharged home. He does note a dry cough. The patient denies fevers, chills, sweats, chest pain, palpitations, claudication, wheezing, shortness of breath, nausea, vomiting, abdominal pain, dysuria, hematuria, urinary retention, paralysis, weakness, numbness and tingling. Review of Systems: Constitutional: No chills, No fatigue, No fever, No sweats, No weakness Eyes: No diplopia, No eye pain, No worsening of vision ENT: No hearing loss, No sore throat, No trouble swallowing Respiratory: + cough (dry, non-productive), No dyspnea on exertion, No shortness of breath, No sputum, No wheezing Cardiovascular: No PND, No chest pain, No claudication, No orthopnea, No palpitations Abdomen: No nausea, No pain, No vomiting Musculoskeletal: No calf pain, No muscle pain Genitourinary - Male: No dysuria, No hematuria, No urinary retention Neurologic: No numbness/tingling, No paralysis, No weakness Integumentary: No color change, No itch, No rash Physical Exam: General Appearance: WD/WN, no apparent distress, + obese Eyes: normal inspection, PERRL, EOMI ENT: normal ENT inspection, hearing grossly normal, pharynx normal Neck: supple, no JVD, trachea midline Respiratory/Chest: lungs clear, normal breath sounds, no respiratory distress Cardiovascular: no gallop, no murmur, + irregularly irregular (rate controlled) Abdomen / GI: normal bowel sounds, non tender, soft Extremities: normal inspection, no calf tenderness, + swelling (1+ pitting edema) Neurologic/Psychiatric: alert, normal mood/affect, oriented x 3 Skin: normal color, warm/dry, no rash (Saenz, Bernarda ., MARYC) Hospital Course 75 y/o male with a history of A. fib, systolic CHF, HTN, COPD, DM II, CKD stage III, CML (currently in remission), hypothyroidism, and gout who presented to the ED on 10/20 with sudden shortness of breath, sweating and nausea. Per patient's , they had been away from home the last 4 days visiting the patient's sister. The states that they had been eating out, and the patient does not necessarily watch what he eats. Patient arrived to ED hypertensive and hypoxic and was placed on nasal cannula. Patient does not wear supplemental oxygen at home. BP up to 249/139. The patient was given a total of 80 mg Lasix IV and did have good urine output per . The patient was also given 10 mg of hydralazine and 10 mg of labetalol for his blood pressure, which did improve to 156/83. Patient placed on BiPAP and reports feeling much better. Acute on chronic systolic CHF, acute respiratory failure with hypoxia-- improving. Last echocardiogram per outpatient and hospital records in 2011 showed LVEF of 25-30% -Admit to telemetry. Patient doing much better and is stable, transferred to [facility] on 10/21 -Oxygenating well on room air. Ambulating in the khan without AGUILAR -Echocardiogram shows moderate concentric LVH. Left ventricular systolic function normal. Moderate aortic insufficiency. Right ventricular systolic pressure normal. Compared to 08/2011 study. Left ventricular function has improved. AI has also improved. Aortic root dilation seen previously now resolved. -Received Lasix 80 mg IV BID and diuresed several liters of fluid. Will increase home Lasix dose to 80 mg PO BID -Continue Imdur 120 mg PO qd on d/c, increased from previous home dose of 60 mg PO qd -Daily weights -Strict I's & O's -PT/OT ordered, no rehab necessary Atrial fibrillation--currently rate controlled -EKGs q am and prn with chest pain -EKG on 10/23 shows 86 bpm, a-fib -Continue metoprolol succinate 200 mg PO qd -Continue Pradaxa 75 mg PO BID HTN urgency, BP 243/118 in ED--now stable -Continue hydralazine to 50 mg PO TID on d/c, increased from home dose of 25 mg PO TID -Continue lisinopril to 5 mg PO qd on d/c, increased from home dose of 2.5 mg PO qd -Continue metoprolol as above COPD -Continue Combivent inhaler prn Diabetes mellitus type 2--last hemoglobin A1c checked 09/28/16 was 6.3 -Hold home NovoLog -Insulin sliding scale -Check BSGs q ac and qhs -May resume home regimen on discharge CKD stage III--stable -Baseline creatinine 1.[address] Zavaleta's records -Creatinine 1.7 upon arrival -Creatinine slightly elevated above baseline at 1.8 on 10/26, no further IV Lasix needed -Continue to monitor Hypothyroidism -Continue Synthroid 50 mcg and 75 mcg PO alternating every other day Gout -Continue allopurinol 300 mg PO qd Acute conjunctivitis--resolved -November d/c tobramycin drops DVT prophylaxis -Pradaxa -ROSEMARIE damon and SCDs Code Status -Level I, FULL RESUSCITATION STATUS Dispo -Pt medically stable for discharge. Okay to return home per PT/OT This chart was completed in part utilizing [employer] Speech Voice Recognition software. Attempts were made to minimize the grammatical errors, random word insertions, pronoun errors and incomplete sentences. Any formal questions or concerns about the content, text or information contained within the body of this dictation should be directly addressed to the provider for clarification. Total Time Spent: Greater than 30 minutes This includes examination of the patient, discharge planning, medication reconciliation, and communication with other providers. (Bernarda Saenz ., PA-C) I agree with PA assessment and plan and have seen and examined pt myself Resting comfortably in bed Hemodynamically stable Denies any sob, chest pain Agree with low sodium diet Agree with titration of lasix Can DC home, will need to follow up with cardiology and PCP (Elvin Aldana D.OMitch) Discharge Instructions Please refer to the electronic Patient Visit Report (Discharge Instructions) for additional information. (Bernarda Saenz ., RIKA-C) Additional Copies To Errol Julio M.D.
== END 2016-10-26 13:30 | disposition home or self-care (01) | DRG 291 ==
LOC: CANRESERV → ENRESERVTM → ENRESERVDT → C.EDB 05:45 → EDBD 05:45 → C.EDINP 08:55 → C.MED 15:22 → CANBEDREQ 10-21 08:51 → C.MS4W 10-21 10:52
PROVIDERS: ADMIT Internal Medicine; ATTEND Hospitalist
DX: I50.23 Acute on chronic systolic (congestive) heart failure (principal); J96.21 Acute and chronic respiratory failure with hypoxia; C92.91 Myeloid leukemia, unspecified in remission; I12.9 Hypertensive chronic kidney disease with stage 1 through stage 4 chronic kidney disease, or unspecified chronic kidney disease; N18.3 Chronic kidney disease, stage 3 (moderate); I48.2 Chronic atrial fibrillation; E03.9 Hypothyroidism, unspecified; E11.21 Type 2 diabetes mellitus with diabetic nephropathy; J44.9 Chronic obstructive pulmonary disease, unspecified; M10.9 Gout, unspecified; I35.1 Nonrheumatic aortic (valve) insufficiency; Z87.891 Personal history of nicotine dependence; H10.30 Unspecified acute conjunctivitis, unspecified eye

== ENCOUNTER → 2017-04-08 | Outpatient (CLI) | payer OTHER ==
[~2017-04-08] MED LIST changes: -APR25 PO; +APR50 PO; +CHOL2000 PO; -CYCL10TA6 PO; -FAMO20TA12 PO; +IMDSR60 PO; -ISOS60TA25 PO; -LSN25 PO; +LSN5 PO; -METO-648 PO; +METO1TAB70 PO; -MRLP17X PO; +POLY335019 PO
[2017-04-08 12:24] LABS: HEMATOCRIT 46.8 % (42-52); MEAN CELL VOLUME 99.2 fL (80-100); MEAN CORPUSCULAR HEMOGLOBIN 30.7 pg (25-34); MEAN PLATELET VOLUME 11.4 fL (7.4-10.4); PLATELET COUNT 216 K/uL (130-400); RED BLOOD COUNT 4.72 M/uL (4.7-6.1); WHITE BLOOD COUNT 9.05 K/uL (4.8-10.8)
[2017-04-08 12:31] LABS: ESTIMATED AVERAGE GLUCOSE 137 mg/dl; HA1C FLAG Normal (Normal)
[2017-04-08 12:31] LABS: URINE APPEARANCE CLEAR (CLEAR); URINE BILIRUBIN NEG (NEG); URINE COLOR YELLOW; URINE EPITHELIAL CELL AUTO 0-5 /lpf (0-5); URINE NITRITE NEG (NEG); URINE PH 6.5 (4.5-7.5); URINE SPECIFIC GRAVITY 1.011 (1.000-1.030); UROBILINOGEN NEG (NEG)
[2017-04-08 12:38] LABS: MANUAL MICROSCOPIC REQUIRED? NO; REVIEW REQ? NO
[2017-04-08 13:02] LABS: URINE PROTIEN/CREAT RATIO 0.9 (0-0.2); URINE TOTAL PROTEIN 40.5 mg/dl (0-11.9)
[2017-04-08 13:10] LABS: ALT/SGPT 25 U/L (12-78); BLOOD UREA NITROGEN 47 mg/dl (7-18); BUN/CREATININE RATIO 24.8 (10-20); CALCIUM 9.7 mg/dl (8.5-10.1); CARBON DIOXIDE 32 mmol/L (21-32); CHLORIDE 103 mmol/L (98-107); GLUCOSE 125 mg/dl (70-99); POTASSIUM 3.1 mmol/L (3.5-5.1); SODIUM 142 mmol/L (136-145)
[2017-04-08 13:21] LABS: ALB/GLOB RATIO 0.9 (0.9-2); ALKALINE PHOSPHATASE 102 U/L (45-117); AST/SGOT 28 U/L (15-37); CHOLESTEROL 139 mg/dl (0-200); CHOLESTEROL/HDL RATIO 2.3; HDL CHOLESTEROL 60 mg/dl; LDL CHOLESTEROL CALCULATED 60 mg/dl; TRIGLYCERIDES 97 mg/dl (0-150); VERY LOW DENSITY LIPOPROT CALC 19 mg/dl
== END | disposition home or self-care (01) ==
LOC: C.LABBFT 08:08
PROVIDERS: ATTEND Internal Medicine Nephrology
DX: I42.9 Cardiomyopathy, unspecified (principal); I12.9 Hypertensive chronic kidney disease with stage 1 through stage 4 chronic kidney disease, or unspecified chronic kidney disease; N18.3 Chronic kidney disease, stage 3 (moderate); D64.9 Anemia, unspecified; E55.9 Vitamin D deficiency, unspecified; E11.21 Type 2 diabetes mellitus with diabetic nephropathy; I50.43 Acute on chronic combined systolic (congestive) and diastolic (congestive) heart failure

== ENCOUNTER 2017-07-01 23:38 | Inpatient (IN) | payer OTHER ==
[~2017-07-01] VITALS: Ht 177.8 cm; Wt 116.0 kg
[~2017-07-01 23:38] MED LIST changes: +METO-648 PO; -METO1TAB70 PO
[2017-07-02] VITALS (9 sets, daily range): BP systolic 117–193; BP diastolic 62–84; PULSE 71–88; TEMP 36–36.7; O2SAT 95–99; Ht 177.8 cm; Wt 116.0 kg
--- NOTE | 2017-07-02 00:17 | EMERGENCY ROOM VISIT NOTE ---
History Report prepared by Mavis: Hugo Liang Under the Supervision of: Ana Luisa JeanO. First contact with patient: 23:48 Chief Complaint: SHORTNESS OF BREATH Stated Complaint: HARD TO BREATHE, Nursing Triage Summary: Pt states when he tried laying down for bed at 2300 he became SOB. Pt states his PCP recently changed his Lasix and Potassium medications one week ago. History of Present Illness The patient is a 76 year old male who presents to the Emergency Room with complaints of resolving shortness of breath that started around 2 hours ago. He says that earlier this afternoon, he had a bit of shortness of breath with mild chest pain, but that went away after he farted. The patient states that around 2 hours ago, the shortness of breath came back and was very bad, and he had trouble catching his breath. He says that currently has has no pain, and the shortness of breath is not nearly as bad as what it was earlier tonight. The patient states that he took his "puffer" prior to arrival. He notes that he has a history of CHF, chronic atrial fibrillation, hypertension, and diabetes. He adds that he has had cold symptoms for 2 weeks, with a cough with clear sputum. He says that he has had nausea but he took Tums and it went away. He denies any vomiting, hematochezia, or urinary symptoms. Source of History: patient Onset: Around 2 hours ago Position: other (global - shortness of breath) Symptom Intensity: could not catch breath Timing: other (resolving) Associated Symptoms: + cough, + chest pain (earlier), No vomiting, No hematochezia, No urinary symptoms Note: Associated symptoms: Cold symptoms for 2 weeks. Review of Systems See HPI for pertinent positives & negatives. A total of 10 systems reviewed and were otherwise negative. Past Medical & Surgical Medical Problems: (1) Acute respiratory failure (2) Benign hypertension (3) Bilateral hearing loss (4) CHF exacerbation (5) Chronic atrial fibrillation (6) Chronic myeloid leukemia, disease (7) Dizziness (8) Hearing disorder (9) Heart disease (10) Pneumonia Surgical Problems: (1) S/P cholecystectomy Family History Diabetes mellitus FH: cancer FH: gallbladder disease FH: heart disease FH: hypertension Hypertension Stroke Social History Smoking Status: Former Smoker Alcohol Use: none Drug Use: none Marital Status: Housing Status: lives with significant other Occupation Status: retired Current/Historical Medications Scheduled Allopurinol (Allopurinol), 300 MG PO DAILY Cholecalciferol (Vitamin D3), 1 CAP PO DAILY Dabigatran Etexilate Mesylate (Pradaxa), 75 MG PO BID Furosemide (Lasix), 80 MG PO QAM Furosemide (Lasix), 80 MG PO QPM Hydralazine HCl (Hydralazine HCl), 50 MG PO TID Insulin Aspart 70/30 (Novolog Mix 70/30), 20 UNITS SC BID Isosorbide Mononitrate Ext Rel (Imdur Ext Rel), 120 MG PO DAILY Levothyroxine Sodium (Levothyroxine Sodium), 75 MCG PO Q2D Levothyroxine Sodium (Levothyroxine Sodium), 50 MCG PO Q2D Lisinopril (Lisinopril), 5 MG PO DAILY Metoprolol Succinate (Toprol Xl), 200 MG PO DAILY Potassium Ext Rel (Klor-Con), 40 MEQ PO BID Scheduled PRN Ipratropium-Albuterol (Combivent Respimat), 2 PUFFS INH Q6H PRN for SOB/Wheezing Allergies Coded Allergies: Adhesives (Verified Allergy, Unknown, RASH, 07/02/17) Latex1 -Allergic Contact Dermititis (Verified Adverse Reaction, Intermediate, BLISTERS SKIN, 07/02/17) Morphine (Verified Adverse Reaction, Intermediate, DELUSIONS, "LOSES TIME ", 07/02/17) STATED "HE SIAD HE WAS ABHISHEK THE EIGHT FOR THREE DAYS!" Physical Exam Vital Signs Date Time Temp Pulse Resp B/P (MAP) Pulse Ox O2 Delivery O2 Flow Rate FiO2 07/02/17 02:00 70 07/02/17 02:00 75 22 187/94 95 Room Air 07/02/17 01:47 92 Room Air 07/02/17 00:47 81 22 198/89 95 Room Air 07/02/17 00:00 Room Air 07/01/17 23:59 Room Air 94 07/01/17 23:58 74 07/01/17 23:40 36.2 79 32 188/103 92 Room Air Physical Exam GENERAL: alert, appears short of breath, well nourished, no distress, non-toxic EYE EXAM: normal conjunctiva, PERRL and EOM's grossly intact OROPHARYNX: no exudate, no erythema, lips, buccal mucosa, and tongue normal and mucous membranes are moist NECK: supple, no nuchal rigidity, no adenopathy, non-tender LUNGS: Slightly increased work of breathing, tachypneic. Lung sounds are diminished, but no overt wheezes rhonchi or rales. HEART: Heart is irregular, no murmurs, S1 normal and S2 normal ABDOMEN: abdomen soft, non-tender, normo-active bowel sounds, no masses, no rebound or guarding. BACK: Back is symmetrical on inspection and there is no deformity, no midline tenderness, no CVA tenderness. SKIN: no rashes and no bruising UPPER EXTREMITIES: upper extremities are grossly normal. Nml rom, nml pulses. LOWER EXTREMITIES: 1+ bilateral pitting edema. Nml ROM, nml pulses. NEURO EXAM: Normal sensorium, cranial nerves II-XII grossly intact, normal speech, no gross weakness of arms, no gross weakness of legs. Medical Decision & Procedures ER Provider Diagnostic Interpretation: X-ray results have been interpreted and reviewed by me. Chest/abdomen X-ray - cardiomegaly, infiltrate at right lower lobe. Rotated. No wide mediastinum. Mildly increased interstitial markings bilaterally suggestive of pulmonary edema. Laboratory Results 07/02/17 00:00 Red Blood Count 4.46, Mean Corpuscular Volume 99.6, Mean Corpuscular Hemoglobin 32.7, Mean Corpuscular Hemoglobin Concent 32.9, Mean Platelet Volume 10.5, Neutrophils (%) (Auto) 75.9, Lymphocytes (%) (Auto) 12.8, Monocytes (%) (Auto) 7.1, Eosinophils (%) (Auto) 3.0, Basophils (%) (Auto) 0.2, Neutrophils # (Auto) 7.25, Lymphocytes # (Auto) 1.22, Monocytes # (Auto) 0.68, Eosinophils # (Auto) 0.29, Basophils # (Auto) 0.02 07/02/17 00:00 Test 07/02/17 00:00 White Blood Count 9.56 K/uL (4.8-10.8) Red Blood Count 4.46 M/uL (4.7-6.1) Hemoglobin 14.6 g/dL (14.0-18.0) Hematocrit 44.4 % (42-52) Mean Corpuscular Volume 99.6 fL (80-100) Mean Corpuscular Hemoglobin 32.7 pg (25-34) Mean Corpuscular Hemoglobin Concent 32.9 g/dl (32-36) Platelet Count 170 K/uL (130-400) Mean Platelet Volume 10.5 fL (7.4-10.4) Neutrophils (%) (Auto) 75.9 % Lymphocytes (%) (Auto) 12.8 % Monocytes (%) (Auto) 7.1 % Eosinophils (%) (Auto) 3.0 % Basophils (%) (Auto) 0.2 % Neutrophils # (Auto) 7.25 K/uL (1.4-6.5) Lymphocytes # (Auto) 1.22 K/uL (1.2-3.4) Monocytes # (Auto) 0.68 K/uL (0.11-0.59) Eosinophils # (Auto) 0.29 K/uL (0-0.5) Basophils # (Auto) 0.02 K/uL (0-0.2) RDW Standard Deviation 51.7 fL (36.4-46.3) RDW Coefficient of Variation 14.3 % (11.5-14.5) Immature Granulocyte % (Auto) 1.0 % Immature Granulocyte # (Auto) 0.10 K/uL (0.00-0.02) Prothrombin Time 11.1 SECONDS (9.0-12.0) Prothromb Time International Ratio 1.1 (0.9-1.1) Anion Gap 5.0 mmol/L (3-11) Est Creatinine Clear Calc Drug Dose 54.9 ml/min Estimated GFR () 51.2 Estimated GFR (Non- 44.2 BUN/Creatinine Ratio 21.7 (10-20) Calcium Level 9.3 mg/dl (8.5-10.1) Magnesium Level 2.2 mg/dl (1.8-2.4) Total Bilirubin 0.9 mg/dl (0.2-1) Aspartate Amino Transf (AST/SGOT) 23 U/L (15-37) Alanine Aminotransferase (ALT/SGPT) 24 U/L (12-78) Alkaline Phosphatase 109 U/L (45-117) Troponin I 0.023 ng/ml (0-0.045) Pro-B-Type Natriuretic Peptide 4531 pg/ml (0-900) Total Protein 7.5 gm/dl (6.4-8.2) Albumin 3.5 gm/dl (3.4-5.0) Globulin 4.0 gm/dl (2.5-4.0) Albumin/Globulin Ratio 0.9 (0.9-2) Laboratory results per my review. Medications Administered Medications (Trade) Dose Ordered Sig/Isabella Route Start Time Stop Time Status Last Admin Dose Admin Ceftriaxone Sodium (Rocephin Inj) 1 gm NOW STAT IV 07/02/17 00:39 07/02/17 00:40 DC 07/02/17 01:08 1 GM Azithromycin (Zithromax Tab) 500 mg NOW ONCE PO 07/02/17 00:45 07/02/17 00:46 DC 07/02/17 01:08 500 MG Furosemide (Lasix Inj) 40 mg NOW STAT IV 07/02/17 01:27 07/02/17 01:28 DC 07/02/17 02:08 40 MG Hydralazine HCl (HydrALAZINE INJ) 10 mg NOW STAT IV. 07/02/17 01:53 07/02/17 01:54 DC 07/02/17 02:08 10 MG Nitroglycerin (Nitroglycerin 2% Oint) 1 inch NOW ONCE EXT 07/02/17 02:30 07/02/17 02:31 DC 07/02/17 02:37 1 INCH ECG Indication: SOB/dyspnea Rate (beats per minute): 74 Rhythm: atrial fibrillation Findings: no acute ischemic change, left axis deviation ED Course 0030: The patient was evaluated in room A9B. A complete history and physical exam was performed. 0039: Ordered Rocephin Inj 1 gm IV. 0045: Ordered Zithromax Tab 500 mg PO. 0100: I reevaluated and updated the patient. 0127: Ordered Lasix Inj 40 mg IV. 0153: Ordered Hydralazine Inj 10 mg IV. 0215: Patient states has not noticed any significant changes while being placed on oxygen. Patient's blood pressure still elevated following administration of hydralazine. Discussed with patient all results and concerns over persistent increased work of breathing and tachypnea. When patient tried to ambulate with nurse, he was markedly dyspneic. Patient states this is worse than his usual. Discussed with patient my concern for persistently increased work of breathing likely due to multiple pathologies. Medical Decision Differential diagnoses includes but is not limited to pneumonia, bronchitis, COPD/Asthma exacerbation, pneumothorax, pulmonary embolism, congestive heart failure, acute coronary syndrome Pt with obvious increased WOB here and tachypnea. Elevated BNP but has been elevated before. Given recent weight gain and med changes, likely component of acute on chronic CHF. Doubt PE given anticoaugulation for a.fib which is chronic and rate controlled. CXR with some asymmetry and given recent URI sx possible evolving pneumonia, pt covered with antibiotics. No recent hospitalization, no recent travel, no known sick contact. Pt not hypoxic. Placed on oxygen initially for comfort but pt reports no change or improvement and no change in oxygen level. VS otw stable. Doubt bacteremia/sepsis, doubt vascular etiology, doubt acs. Medication Reconcilliation Current Medication List: was personally reviewed by me Blood Pressure Screening Patient's blood pressure: Elevated blood pressure Blood pressure disposition: Referred to PCP Impression Primary Impression: Dyspnea Additional Impressions: AGUILAR (dyspnea on exertion) Orthopnea Chronic atrial fibrillation Hypertension Acute on chronic systolic heart failure Pneumonia Scribe Attestation The scribe's documentation has been prepared under my direction and personally reviewed by me in its entirety. I confirm that the note above accurately reflects all work, treatment, procedures, and medical decision making performed by me. Departure Information Referrals Errol Julio M.D. (PCP) Patient Instructions My [facility] Problem Qualifiers Primary Impression: Dyspnea Dyspnea type: unspecified Qualified Codes: R06.00 - Dyspnea, unspecified Additional Impressions: Hypertension Hypertension type: essential hypertension Qualified Codes: I10 - Essential ( primary) hypertension Pneumonia Pneumonia type: due to unspecified organism Laterality: right Lung location : lower lobe of lung Qualified Codes: J18.1 - Lobar pneumonia, unspecified organism
[2017-07-02] MEDS ORDERED: CEFTRIAXONE SOD INJ 1 GM ADDVIAL IV STA (00:39)
[2017-07-02] MEDS ORDERED: AZITHROMYCIN 250 MG TAB PO ONE (00:45)
[2017-07-02 00:47] LABS: BASO % 0.2 %; BASO ABS # 0.02 K/uL (0-0.2); COMPLETE YES; HEMATOCRIT 44.4 % (42-52); LYMPH % 12.8 %; LYMPH ABS # 1.22 K/uL (1.2-3.4); MEAN CELL VOLUME 99.6 fL (80-100); MEAN CORPUSCULAR HEMOGLOBIN 32.7 pg (25-34); MEAN CORPUSCULAR HGB CONC 32.9 g/dl (32-36); MEAN PLATELET VOLUME 10.5 fL (7.4-10.4); MONO % 7.1 %; NEUT % 75.9 %; PLATELET COUNT 170 K/uL (130-400); RED BLOOD COUNT 4.46 M/uL (4.7-6.1); WHITE BLOOD COUNT 9.56 K/uL (4.8-10.8)
[2017-07-02 00:51] LABS: INR 1.1 (0.9-1.1); PROTHROMBIN TIME (PATIENT) 11.1 SECONDS (9.0-12.0)
[2017-07-02 00:55] LABS: BUN/CREATININE RATIO 21.7 (10-20); CALCIUM 9.3 mg/dl (8.5-10.1); CREATININE 1.52 mg/dl (0.60-1.40); MAGNESIUM 2.2 mg/dl (1.8-2.4); POTASSIUM 4.3 mmol/L (3.5-5.1)
[2017-07-02 01:00] LABS: ALB/GLOB RATIO 0.9 (0.9-2)
[2017-07-02] MEDS ORDERED: FUROSEMIDE 40 MG/4 ML VIAL IV STA (01:27)
[2017-07-02] MEDS ORDERED: ISOS120T5 PO (01:43)
[2017-07-02] MEDS ORDERED: HydrALAZINE HCL 20 MG/ML VIAL IV. STA (01:53)
[2017-07-02] MEDS ORDERED: NITROGLYCERIN OINT 2% 1GM PACKET EXT ONE (02:30)
--- NOTE | 2017-07-02 02:45 | History and Physical ---
History & Physical Date & Time of Service: Jul 02, 2017 at 02:42 Chief Complaint: Hard To Breathe, Primary Care Physician: Errol Julio M.D. History of Present Illness Source: patient 75 y/o M Hx AF, diastolic CHF, HTN, COPD, DM II, CKD III, CML, hypothyroidism, gout. The pt presents with persistent SOB for approximately one day. He CP, orthopnea, a productive cough or fever. A CXR is consistent with a RLL pneumonia. Past Medical/Surgical History 1) Benign hypertension 2) COPD 3) Chronic atrial fibrillation 4) Chronic myeloid leukemia - in remission 5) Hearing disorder 6) Chronic diastolic CHF - preserved EF on echo 10/09 6) Diabetes mellitus type 2 7) CKD stage III 8) Hypothyroidism 9) Gout 10) Obesity Family History Diabetes mellitus FH: cancer FH: gallbladder disease FH: heart disease FH: hypertension Hypertension Stroke Social History Smoking Status: Former Smoker Drug Use: none Marital Status: Housing status: lives with family, lives with significant other Occupational Status: retired Immunizations History of Influenza Vaccine: Yes Influenza Vaccine Date: Jun 03, 2011 History of Tetanus Vaccine?: Yes History of Pneumococcal: Yes Pneumococcal Date: Oct 01, 2010 History of Hepatitis B Vaccine: No Multi-Drug Resistant Organisms History of MDRO: No Allergies Coded Allergies: Adhesives (Verified Allergy, Unknown, RASH, 07/02/17) Latex1 -Allergic Contact Dermititis (Verified Adverse Reaction, Intermediate, BLISTERS SKIN, 07/02/17) Morphine (Verified Adverse Reaction, Intermediate, DELUSIONS, "LOSES TIME ", 07/02/17) STATED "HE SIAD HE WAS ABHISHEK THE EIGHT FOR THREE DAYS!" Home Medications Scheduled Allopurinol (Allopurinol), 300 MG PO DAILY Cholecalciferol (Vitamin D3), 1 CAP PO DAILY Dabigatran Etexilate Mesylate (Pradaxa), 75 MG PO BID Furosemide (Lasix), 80 MG PO QAM Furosemide (Lasix), 80 MG PO QPM Hydralazine HCl (Hydralazine HCl), 50 MG PO TID Insulin Aspart 70/30 (Novolog Mix 70/30), 20 UNITS SC BID Isosorbide Mononitrate Ext Rel (Imdur Ext Rel), 120 MG PO DAILY Levothyroxine Sodium (Levothyroxine Sodium), 75 MCG PO Q2D Levothyroxine Sodium (Levothyroxine Sodium), 50 MCG PO Q2D Lisinopril (Lisinopril), 5 MG PO DAILY Metoprolol Succinate (Toprol Xl), 200 MG PO DAILY Potassium Ext Rel (Klor-Con), 40 MEQ PO BID Scheduled PRN Ipratropium-Albuterol (Combivent Respimat), 2 PUFFS INH Q6H PRN for SOB/Wheezing Review of Systems Constitutional: No fever, No chills, No sweats Eyes: No worsening of vision ENT: No hearing loss Respiratory: + shortness of breath, + dyspnea on exertion, + dyspnea at rest, No cough, No sputum, No wheezing Cardiovascular: No chest pain Abdomen: No pain, No nausea, No vomiting Musculoskeletal: No joint pain Genitourinary - Male: No hematuria, No dysuria, No urinary frequency Neurologic: No memory loss, No paralysis, No weakness Psychiatric: No depression symptoms Endocrine: No fatigue Hematologic / Lymphatic: No abnormal bleeding/bruising Integumentary: No rash Allergic / Immunologic: No environmental allergies Physical Exam Vital Signs Date Time Temp Pulse Resp B/P (MAP) Pulse Ox O2 Delivery O2 Flow Rate FiO2 07/02/17 02:00 70 07/02/17 02:00 75 22 187/94 95 Room Air 07/02/17 01:47 92 Room Air 07/02/17 00:47 81 22 198/89 95 Room Air 07/02/17 00:00 Room Air 07/01/17 23:59 Room Air 94 07/01/17 23:58 74 07/01/17 23:40 36.2 79 32 188/103 92 Room Air General Appearance: + pertinent finding (Obese, elderly male - no distress) Head: normocephalic Eyes: normal inspection ENT: normal ENT inspection Neck: supple, no JVD Respiratory/Chest: chest non-tender, + pertinent finding (Lungs are essentially clear) Cardiovascular: regular rate, rhythm, no gallop Abdomen/GI: normal bowel sounds, non tender, soft Back: normal inspection, no CVA tenderness Extremities/Musculoskelatal: normal inspection, no calf tenderness, normal capillary refill, + pedal edema Neurologic/Psych: practice management consultant II-XII nml as tested, no motor/sensory deficits, alert, normal mood/affect, normal reflexes, oriented x 3 Skin: normal color, warm/dry Diagnostics Laboratory Results Results Past 24 Hours Test 07/02/17 00:00 Range/Units White Blood Count 9.56 4.8-10.8 K/uL Red Blood Count 4.46 4.7-6.1 M/uL Hemoglobin 14.6 14.0-18.0 g/dL Hematocrit 44.4 42-52 % Mean Corpuscular Volume 99.6 80-100 fL Mean Corpuscular Hemoglobin 32.7 25-34 pg Mean Corpuscular Hemoglobin Concent 32.9 32-36 g/dl Platelet Count 170 130-400 K/uL Mean Platelet Volume 10.5 7.4-10.4 fL Neutrophils (%) (Auto) 75.9 % Lymphocytes (%) (Auto) 12.8 % Monocytes (%) (Auto) 7.1 % Eosinophils (%) (Auto) 3.0 % Basophils (%) (Auto) 0.2 % Neutrophils # (Auto) 7.25 1.4-6.5 K/uL Lymphocytes # (Auto) 1.22 1.2-3.4 K/uL Monocytes # (Auto) 0.68 0.11-0.59 K/uL Eosinophils # (Auto) 0.29 0-0.5 K/uL Basophils # (Auto) 0.02 0-0.2 K/uL RDW Standard Deviation 51.7 36.4-46.3 fL RDW Coefficient of Variation 14.3 11.5-14.5 % Immature Granulocyte % (Auto) 1.0 % Immature Granulocyte # (Auto) 0.10 0.00-0.02 K/uL Prothrombin Time 11.1 9.0-12.0 SECONDS Prothromb Time International Ratio 1.1 0.9-1.1 Sodium Level 138 136-145 mmol/L Potassium Level 4.3 3.5-5.1 mmol/L Chloride Level 109 98-107 mmol/L Carbon Dioxide Level 24 21-32 mmol/L Anion Gap 5.0 3-11 mmol/L Blood Urea Nitrogen 33 7-18 mg/dl Creatinine 1.52 0.60-1.40 mg/dl Est Creatinine Clear Calc Drug Dose 54.9 ml/min Estimated GFR () 51.2 Estimated GFR (Non- 44.2 BUN/Creatinine Ratio 21.7 10-20 Random Glucose 84 70-99 mg/dl Calcium Level 9.3 8.5-10.1 mg/dl Magnesium Level 2.2 1.8-2.4 mg/dl Total Bilirubin 0.9 0.2-1 mg/dl Aspartate Amino Transf (AST/SGOT) 23 15-37 U/L Alanine Aminotransferase (ALT/SGPT) 24 12-78 U/L Alkaline Phosphatase 109 45-117 U/L Troponin I 0.023 0-0.045 ng/ml Pro-B-Type Natriuretic Peptide 4531 0-900 pg/ml Total Protein 7.5 6.4-8.2 gm/dl Albumin 3.5 3.4-5.0 gm/dl Globulin 4.0 2.5-4.0 gm/dl Albumin/Globulin Ratio 0.9 0.9-2 Diagnostic Radiology CXR: RLL infiltrate EKG AF - no evidence of acute ischemia Impression Assessment and Plan 75 y/o M Hx AF, diastolic CHF, HTN, COPD, DM II, CKD III, CML, hypothyroidism, gout. The pt presents with persistent SOB for approximately one day. He CP, orthopnea, a productive cough or fever. A CXR is consistent with a RLL pneumonia. 1) PNM - placed on Zithromax and Ceftriaxone - duonebs provided, 02 protocol. 2) CHF - his volume status cannot be assessed clinically due to his Habitus. He is on a high dose of Lasix BID. Would consider addition of Zaroxolyn if he fails to improve with PNM treatment as his CHF may certainly be contributing to his SOB. He will remain on a B-jono and Imdur. 3) COPD - no evidence of acute exacerbation to merit steroid use - would consider if he develops oxygen demand. Placed on Duonebs, 02 protocol, 4) DM - placed on a SS 5) CKD - creatinine is currently at baseline. 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
[2017-07-02] MEDS ORDERED: LEVALBUTEROL 1.25MG/3ML NEB INH PRN (03:00)
[2017-07-02] MEDS ORDERED: POLYETHYLENE (MIRALAX) 17 GM PACK PO PRN (03:00)
[2017-07-02] MEDS ORDERED: ACETAMINOPHEN 325 MG TAB PO PRN (03:00)
[2017-07-02] MEDS ORDERED: ONDANSETRON INJ 2 MG/ML 2 ML VIAL IV PRN (03:00)
[2017-07-02] MEDS ORDERED: MAGNESIUM HYDROXIDE SUSP 30 ML UDC PO PRN (03:00)
[2017-07-02] MEDS ORDERED: ALUMINUM/MAGNESIUM/SIMETH (MAALOX MAX) 30 ML UDC PO PRN (03:00)
[2017-07-02] MEDS ORDERED: DEXTROSE 50% 50 ML SYR IV PRN (06:15)
[2017-07-02] MEDS ORDERED: GLUCAGON FOR INJ 1 MG VIAL SQ PRN (06:15)
[2017-07-02] MEDS ORDERED: GLUCOSE 10 TABS/TUBE PO PRN (06:15)
[2017-07-02] MEDS ORDERED: GLUCOSE 40% GEL 15 GM TUBE PO PRN (06:15)
[2017-07-02] MEDS: INSULIN ASPART 100 UNITS/ML 3 ML PEN SC SCH ×4 (06:30→20:54)
--- NOTE | 2017-07-02 06:32 | DIAGNOSTIC IMAGING REPORT ---
CHEST ONE VIEW PORTABLE CLINICAL HISTORY: Shortness of breath COMPARISON STUDY: October 25, 2016 FINDINGS: The heart is enlarged. There is mild interstitial edema. There is no lobar consolidation. Small subpulmonic pleural effusions are suspected.[ IMPRESSION: Cardiomegaly and radiographic evidence of mild interstitial edema. Bilateral subpulmonic pleural effusions are suspected. Electronically signed by: Uday Perdomo M.D. 07/02/2017 6:30 AM Dictated Date/Time: 07/02/2017 6:30 AM
[2017-07-02] MEDS: LEVOTHYROXINE 50 MCG TAB PO SCH (06:42)
[2017-07-02] MEDS: ALBUT/IPRATROP 3MG/0.5MG NEB 3 ML VIAL INH SCH ×3 (07:08→19:02)
[2017-07-02] MEDS: ALLOPURINOL 300 MG TAB PO SCH (07:47)
[2017-07-02] MEDS: POTASSIUM CHLORIDE 20 MEQ TABCR PO SCH ×2 (07:47→20:48)
[2017-07-02] MEDS: METOPROLOL SUCC 50MG EXT REL TAB PO SCH (07:48)
[2017-07-02] MEDS: LISINOPRIL 5 MG TAB PO SCH (07:49)
[2017-07-02] MEDS: FUROSEMIDE 80 MG TAB PO SCH ×2 (07:49→20:54)
[2017-07-02] MEDS: DABIGATRAN ELEXILATE 75 MG CAP PO SCH ×2 (07:50→20:50)
[2017-07-02] MEDS: ISOSORBIDE MONONITRATE 60 MG TABCR PO SCH (07:50)
--- NOTE | 2017-07-02 08:59 | Hospitalist Progress Note ---
Hospitalist Progress Note Date of Service Jul 02, 2017. (Cindy Banks, VALERIE) Subjective Pt evaluation today including: conversation w/ patient, physical exam, chart review, lab review, review of studies Pain: None PO Intake: Good Voiding: no voiding problems The patient was seen and examined this morning. Pt reports feeling better at this point compared to last night. His major complaint is orthopnea, where he feels a sense of panic due to inability to breath, it's worse when he lays on his back vs. his side. He reports a cough which is nonproductive at this point. Denies any fever, chills or sweats, AGUILAR, chest pain, palpitation or flutter. No abdominal complaints. He notes that prior to admission Dr. Zavaleta had instructed him to cut back on lasix to 80 mg once daily x 4-5 days due to Cr. function and decreased potassium. He reports some swelling in his legs but that this is normal for him. He follows with Dr. Wolf as an outpatient with cardiology. ROS: 6 point ROS reviewed and otherwise negative. (Cindy Banks, VALERIE) Objective Vital Signs Date Time Temp Pulse Resp B/P (MAP) Pulse Ox O2 Delivery O2 Flow Rate FiO2 07/02/17 07:15 36.4 71 20 175/81 (112) 98 Room Air 07/02/17 07:10 74 16 99 Room Air 07/02/17 03:51 36.0 74 20 193/84 Room Air 07/02/17 03:17 78 198/84 95 Room Air 07/02/17 02:00 70 07/02/17 02:00 75 22 187/94 95 Room Air 07/02/17 01:47 92 Room Air 07/02/17 00:47 81 22 198/89 95 Room Air 07/02/17 00:00 Room Air 07/01/17 23:59 Room Air 94 07/01/17 23:58 74 07/01/17 23:40 36.2 79 32 188/103 92 Room Air (Cindy Banks, MARYC) Physical Exam General Appearance: WD/WN, no apparent distress, + obese (BMI 37.9) Eyes: PERRL, EOMI ENT: hearing grossly normal, pharynx normal, + pertinent finding (MMM) Neck: supple, no JVD Respiratory/Chest: no respiratory distress, no accessory muscle use, + pertinent finding (on RA, slightly diminished breath sounds at bilateral bases, no crackles, wheeze or rales. ) Cardiovascular: regular rate, rhythm, + systolic murmur Extremities: non-tender, no pedal edema, no calf tenderness Neurologic/Psychiatric: alert, normal mood/affect, oriented x 3 Skin: normal color, warm/dry (Cindy Banks, VALERIE) Laboratory Results Last 24 Hours Test 07/02/17 00:00 White Blood Count 9.56 K/uL Red Blood Count 4.46 M/uL Hemoglobin 14.6 g/dL Hematocrit 44.4 % Mean Corpuscular Volume 99.6 fL Mean Corpuscular Hemoglobin 32.7 pg Mean Corpuscular Hemoglobin Concent 32.9 g/dl Platelet Count 170 K/uL Mean Platelet Volume 10.5 fL Neutrophils (%) (Auto) 75.9 % Lymphocytes (%) (Auto) 12.8 % Monocytes (%) (Auto) 7.1 % Eosinophils (%) (Auto) 3.0 % Basophils (%) (Auto) 0.2 % Neutrophils # (Auto) 7.25 K/uL Lymphocytes # (Auto) 1.22 K/uL Monocytes # (Auto) 0.68 K/uL Eosinophils # (Auto) 0.29 K/uL Basophils # (Auto) 0.02 K/uL RDW Standard Deviation 51.7 fL RDW Coefficient of Variation 14.3 % Immature Granulocyte % (Auto) 1.0 % Immature Granulocyte # (Auto) 0.10 K/uL Prothrombin Time 11.1 SECONDS Prothromb Time International Ratio 1.1 Sodium Level 138 mmol/L Potassium Level 4.3 mmol/L Chloride Level 109 mmol/L Carbon Dioxide Level 24 mmol/L Anion Gap 5.0 mmol/L Blood Urea Nitrogen 33 mg/dl Creatinine 1.52 mg/dl Est Creatinine Clear Calc Drug Dose 54.9 ml/min Estimated GFR () 51.2 Estimated GFR (Non- 44.2 BUN/Creatinine Ratio 21.7 Random Glucose 84 mg/dl Calcium Level 9.3 mg/dl Magnesium Level 2.2 mg/dl Total Bilirubin 0.9 mg/dl Aspartate Amino Transf (AST/SGOT) 23 U/L Alanine Aminotransferase (ALT/SGPT) 24 U/L Alkaline Phosphatase 109 U/L Troponin I 0.023 ng/ml Pro-B-Type Natriuretic Peptide 4531 pg/ml Total Protein 7.5 gm/dl Albumin 3.5 gm/dl Globulin 4.0 gm/dl Albumin/Globulin Ratio 0.9 (Cindy Banks PA-C) Assessment and Plan 75 y/o M Hx AF, diastolic CHF, HTN, COPD, DM II, CKD III, CML, hypothyroidism, gout. The pt presents with persistent SOB for approximately one day. He CP, orthopnea, a productive cough or fever. A CXR is consistent with a RLL pneumonia. RLL Pneumonia - placed on Zithromax and Ceftriaxone - started 07/01 - one protocol. - CXR reviewed Chronic Diastolic CHF HTN - Last Echo completed 10/09 which showed EF of 50-55%, and moderate AI. - may consider repeat ECHO - no JVD, 2+ pitting edema in BLE but pt reports this is better than normal. - He is on a high dose of Lasix 80 mg BID. Would consider addition of Zaroxolyn if he fails to improve with PNM treatment as his CHF may certainly be contributing to his SOB. - Continue metoprolol succ 200 mg daily, Imdur 120 mg daily, lisinopril 5 mg daily COPD - no evidence of acute exacerbation to merit steroid use - on Room air, no accessory muscle use. - Placed on protocol DM II - Continue ISS with accuchecks - A1C= 9.4 on 04/11/17 CKD stage II-III - Baseline appears to be around 1.5-1.7, stable CML - in remission - WBC count is WNL AFib, chronic - Continue pradaxa BID Gout - cont Allopurinol DVT ppx: pradaxa CODE STATUS: Full code Disposition: From home, lives with , discharge likely within 1 day (Cindy Banks PA-C) RIKA Physician Supervision Note: I interviewed and examined the patient. Discussed with Cindy Banks PAC and agree with findings and plan as documented in the note. Any exceptions or clarifications are listed here: None Patient presents for shortness of breath which is likely a combination of his confirmed right middle lobe pneumonia and recent amendment of his diuretic medications due to renal distress despite this he is feeling slightly better still having some orthopnea, his renal distress has improved Vital signs are stable Warren cardiac exam is regular his lung exam is actually fairly clear he has some mild rhonchi on the right Right lower lobe pneumonia, chronic diastolic heart failure COPD A. fib. Pneumonia treated with ceftriaxone and azithromycin if improves likely will go home to complete his course of azithromycin. With regard to his chronic diastolic heart failure this does not to be in acute exacerbation at this time we'll resume his twice a day Lasix dosing Documented By: Khris Brenner (Khris Brenner M.D.)
[2017-07-02] MEDS: AZITHROMYCIN IV 500 MG in DEXTROSE 5% 250ML 250 ML IV SCH (20:44)
[2017-07-02] MEDS: CEFTRIAXONE SOD INJ 1 GM in DEXTROSE 5% ADD-VANTAGE 50ML 50 ML IV SCH (22:48)
[2017-07-03] VITALS: BP 158/80; PULSE 69; TEMP 36.3; O2SAT 96
[2017-07-03] MEDS: LORAZEPAM 0.5 MG TAB PO PRN ×2 (01:56→22:56)
[2017-07-03 02:13] VITALS: PULSE 72; O2SAT 96
[2017-07-03] MEDS: ALBUT/IPRATROP 3MG/0.5MG NEB 3 ML VIAL INH SCH ×2 (02:13→07:02)
[2017-07-03] MEDS: LEVOTHYROXINE 75 MCG TAB PO SCH (06:24)
[2017-07-03] MEDS: INSULIN ASPART 100 UNITS/ML 3 ML PEN SC SCH ×4 (06:30→22:00)
[2017-07-03 07:21] VITALS: BP 161/96; PULSE 76; TEMP 36.5; O2SAT 94
[2017-07-03 07:24] VITALS: PULSE 60; O2SAT 96
[2017-07-03] MEDS: FUROSEMIDE 80 MG TAB PO SCH ×2 (07:49→20:22)
[2017-07-03] MEDS: METOPROLOL SUCC 50MG EXT REL TAB PO SCH (07:49)
[2017-07-03] MEDS: DABIGATRAN ELEXILATE 75 MG CAP PO SCH ×2 (07:49→20:22)
[2017-07-03] MEDS: POTASSIUM CHLORIDE 20 MEQ TABCR PO SCH ×2 (07:49→20:21)
[2017-07-03] MEDS: ALLOPURINOL 300 MG TAB PO SCH (07:49)
[2017-07-03] MEDS: ISOSORBIDE MONONITRATE 60 MG TABCR PO SCH (07:49)
[2017-07-03] MEDS: LISINOPRIL 5 MG TAB PO SCH (07:50)
--- NOTE | 2017-07-03 12:14 | Progress Note ---
Subjective Date of Service: Jul 03, 2017. Subjective pt feels somewhat improved and orthopnea is getting better to point where he was able to sleep Problem List Medical Problems: (1) Acute kidney injury Status: Acute (2) Acute on chronic systolic heart failure Status: Acute (3) FRANK (acute kidney injury) Status: Acute (4) Altered mental status Status: Acute (5) Atrial fibrillation with RVR Status: Acute (6) Atypical chest pain Status: Acute (7) Chest pain Status: Acute (8) Chronic atrial fibrillation Status: Chronic (9) AGUILAR (dyspnea on exertion) Status: Acute (10) Dyspnea Status: Acute (11) Elevated troponin Status: Acute (12) Hypertension Status: Acute (13) Ileus Status: Acute (14) Orthopnea Status: Acute Review of Systems Constitutional: + weakness, + fatigue, No fever, No chills Respiratory: + cough, + shortness of breath, + dyspnea on exertion, + dyspnea at rest Cardiac: + orthopnea, + edema, No chest pain, No PND Abdomen: No pain, No nausea, No vomiting, No diarrhea Neurologic: No memory loss, No weakness Psychiatric: + anxiety, No depression symptoms, No anhedonism Objective Vital Signs Date Time Temp Pulse Resp B/P (MAP) Pulse Ox O2 Delivery O2 Flow Rate FiO2 07/03/17 07:24 60 18 96 Room Air 07/03/17 07:21 36.5 76 20 161/96 (117) 94 Room Air 07/03/17 02:13 72 18 96 Room Air 07/03/17 00:00 36.3 69 20 158/80 (106) 96 Room Air 07/03/17 00:00 Room Air 07/02/17 20:55 88 163/84 (110) 07/02/17 20:00 Room Air 07/02/17 19:02 78 16 95 Room Air 07/02/17 16:00 Room Air 07/02/17 15:14 36.7 78 20 117/62 (80) 95 Room Air 07/02/17 14:40 79 95 07/02/17 13:52 76 17 96 Room Air 07/02/17 13:10 80 149/83 (105) Physical Exam General Appearance: WD/WN, + mild distress Eyes: normal inspection, sclerae normal Respiratory/Chest: chest non-tender, + decreased breath sounds, + rhonchi Cardiovascular: regular rate, rhythm, + systolic murmur Abdomen: normal bowel sounds, non tender, soft Extremities: no calf tenderness, + pedal edema Neurologic/Psychiatric: alert, oriented x 3 Laboratory Results Last 24 Hours Test 07/02/17 16:50 07/02/17 20:24 07/03/17 07:42 07/03/17 11:41 Bedside Glucose 94 mg/dl 92 mg/dl 113 mg/dl 106 mg/dl Assessment and Plan 76 y/o M presents with orthopnea, a productive cough or fever. A CXR is consistent with a RLL pneumonia. RLL Pneumonia Zithromax and Ceftriaxone - started 07/01 - derek provided, 02 protocol. feels dumarquez dont help as much as MDI, feels improved but not ready for home - CXR reviewed with patient at bedside Chronic Diastolic CHF/HTN - Last Echo completed 10/09 which showed EF of 50-55%, and moderate AI. - did have lasix reduced as outpt due to increased CR now back near baseline and lasix resumed BID. -has chronic LE edema but pt states he clinically feels less SOB and less orhtopnea - Continue metoprolol succinate 200 mg daily, Imdur 120 mg daily, lisinopril 5 mg daily COPD not in acute exacerbation - on Room air, no accessory muscle use. - resume home MDI 07/03 DM II ISS with accuchecks A1C= 9.4 on 04/11/17 CKD stage II-III- Baseline CML - in remission - WBC followed AFib, chronic rate controlled with metoprolol anticoagulation with pradaxa BID Gout - no current symtpoms with Allopurinol DVT ppx: pradaxa CODE STATUS: Full code
[2017-07-03] MEDS: IPRATROPIUM BROMIDE/ALBUTEROL respimat INH INH SCH ×2 (14:21→20:19)
[2017-07-03 16:05] VITALS: BP 164/96; PULSE 80; TEMP 36.2; O2SAT 93
[2017-07-03] MEDS: AZITHROMYCIN IV 500 MG in DEXTROSE 5% 250ML 250 ML IV SCH (20:16)
[2017-07-03 20:24] VITALS: BP 158/85; PULSE 68
[2017-07-03] MEDS: CEFTRIAXONE SOD INJ 1 GM in DEXTROSE 5% ADD-VANTAGE 50ML 50 ML IV SCH (22:17)
[2017-07-04 00:36] VITALS: BP 160/77; PULSE 78; TEMP 36.4; O2SAT 94
[2017-07-04] MEDS: LEVOTHYROXINE 50 MCG TAB PO SCH (06:27)
[2017-07-04] MEDS: INSULIN ASPART 100 UNITS/ML 3 ML PEN SC SCH ×4 (06:30→20:22)
[2017-07-04 07:31] VITALS: BP 160/91; PULSE 78; TEMP 36.7; O2SAT 91
[2017-07-04] MEDS: IPRATROPIUM BROMIDE/ALBUTEROL respimat INH INH SCH ×4 (07:55→20:21)
[2017-07-04] MEDS: ALLOPURINOL 300 MG TAB PO SCH (07:55)
[2017-07-04] MEDS: ISOSORBIDE MONONITRATE 60 MG TABCR PO SCH (07:55)
[2017-07-04] MEDS: POTASSIUM CHLORIDE 20 MEQ TABCR PO SCH ×2 (07:56→20:19)
[2017-07-04] MEDS: METOPROLOL SUCC 50MG EXT REL TAB PO SCH (07:56)
[2017-07-04] MEDS: LISINOPRIL 5 MG TAB PO SCH (07:57)
[2017-07-04] MEDS: DABIGATRAN ELEXILATE 75 MG CAP PO SCH ×2 (07:58→20:21)
[2017-07-04] MEDS: FUROSEMIDE 80 MG TAB PO SCH (07:58)
[2017-07-04] MEDS ORDERED: FUROSEMIDE INJ 80 MG in SYRINGE 0 ML IV ONE (12:00)
[2017-07-04] MEDS ORDERED: POTASSIUM CHLORIDE 20 MEQ TABCR PO ONE (12:45)
[2017-07-04] MEDS ORDERED: MAGNESIUM OXIDE 400 MG TAB PO ONE (12:45)
--- NOTE | 2017-07-04 14:56 | Progress Note ---
Subjective Date of Service: Jul 04, 2017. Subjective Pt evaluation today including: conversation w/ patient, physical exam, chart review, lab review, review of studies (cxr), review of inpatient medication list Pain: denies PO Intake: eating 100% of meals; never had any recent anorexia Voiding: no voiding problems patient reports that last pm he "had a rough night" he woke up with cough frequently along with orthopnea reports mild AGUILAR as well cough is worst symptom; largely nonproductive denies chest pain, fevers, chills reports 2 weeks ago his home lasix dose was cut back from BID to QD dosing Problem List Medical Problems: (1) Acute kidney injury Status: Acute (2) Acute on chronic systolic heart failure Status: Acute (3) FRANK (acute kidney injury) Status: Acute (4) Altered mental status Status: Acute (5) Atrial fibrillation with RVR Status: Acute (6) Atypical chest pain Status: Acute (7) Chest pain Status: Acute (8) Chronic atrial fibrillation Status: Chronic (9) AGUILAR (dyspnea on exertion) Status: Acute (10) Dyspnea Status: Acute (11) Elevated troponin Status: Acute (12) Hypertension Status: Acute (13) Ileus Status: Acute (14) Orthopnea Status: Acute Review of Systems Constitutional: No fever, No chills Respiratory: + cough, + wheezing, No sputum Cardiac: + orthopnea, + PND, No chest pain, No edema Abdomen: No pain Objective Vital Signs Date Time Temp Pulse Resp B/P (MAP) Pulse Ox O2 Delivery O2 Flow Rate FiO2 07/04/17 07:31 36.7 78 20 160/91 (114) 91 Room Air 07/04/17 00:36 36.4 78 22 160/77 (104) 94 Room Air 07/04/17 00:00 Room Air 07/03/17 20:24 68 158/85 (109) 07/03/17 20:00 Room Air 07/03/17 16:05 36.2 80 18 164/96 (118) 93 Room Air 07/03/17 16:00 Room Air Physical Exam General Appearance: no apparent distress, + obese ENT: pharynx normal Neck: + JVD Respiratory/Chest: no respiratory distress, no accessory muscle use, + rales ( mild, bases), + wheezing Cardiovascular: no gallop, no murmur, + irregularly irregular Abdomen: normal bowel sounds, non tender, soft, no organomegaly Extremities: no pedal edema Neurologic/Psychiatric: alert, oriented x 3 Laboratory Results Last 24 Hours Test 07/03/17 16:25 07/03/17 20:40 07/04/17 07:43 07/04/17 11:40 Bedside Glucose 112 mg/dl 124 mg/dl 106 mg/dl 97 mg/dl Assessment and Plan 76yo male - 1. suspected acute/chronic diastolic CHF - he reports recent weight gains, a cut in his lasix dose, and he has JVD on exam along with edema on recent cxr. Will give lasix 80mg IV x 1 at noon today and follow clinical response. Daily weights. Restrict fluids. BMP/mag AM. 2. possible community-acquired pneumonia - continue same IV antibiotic therapy for now. 3. COPD - I am unsure if the wheezing is due to his COPD or due to #1 above. Defer on steroids for now. Cont inhalers. 4. HTN - controlled. 5. a. fib - rates controlled with BB. Cont pradaxa. 6. hypothyroidism - cont synthroid. Most recent TSH in March was at goal. 7. T2DM - controlled. 8. CKD stage 2 - creatinine at baseline today. response to diuretics will dictate plan of care Continued [facility] stay due to: multiple IV medications needed Discharge planning: home
[2017-07-04 15:01] VITALS: BP 157/86; PULSE 68; TEMP 36.3; O2SAT 93
[2017-07-04] MEDS ORDERED: FUROSEMIDE INJ 60 MG in SYRINGE 0 ML IV ONE (19:00)
[2017-07-04] MEDS: AZITHROMYCIN IV 500 MG in DEXTROSE 5% 250ML 250 ML IV SCH (20:11)
[2017-07-04 20:23] VITALS: BP 164/83; PULSE 67
[2017-07-04] MEDS: CEFTRIAXONE SOD INJ 1 GM in DEXTROSE 5% ADD-VANTAGE 50ML 50 ML IV SCH (22:23)
[2017-07-04] MEDS: LORAZEPAM 0.5 MG TAB PO PRN (23:32)
[2017-07-05 00:02] VITALS: BP 162/81; PULSE 67; TEMP 36.4; O2SAT 93
[2017-07-05] MEDS: INSULIN ASPART 100 UNITS/ML 3 ML PEN SC SCH ×2 (06:30→11:00)
[2017-07-05] MEDS: LEVOTHYROXINE 75 MCG TAB PO SCH (06:41)
[2017-07-05 07:23] VITALS: BP 161/88; PULSE 70; TEMP 36.6; O2SAT 95
[2017-07-05 07:44] LABS: BUN/CREATININE RATIO 18.8 (10-20); CALCIUM 9.3 mg/dl (8.5-10.1); CREATININE 1.9 mg/dl (0.60-1.40); MAGNESIUM 2.3 mg/dl (1.8-2.4); POTASSIUM 3.6 mmol/L (3.5-5.1)
[2017-07-05] MEDS: IPRATROPIUM BROMIDE/ALBUTEROL respimat INH INH SCH ×2 (07:55→12:08)
[2017-07-05] MEDS: ALLOPURINOL 300 MG TAB PO SCH (07:55)
[2017-07-05] MEDS: ISOSORBIDE MONONITRATE 60 MG TABCR PO SCH (07:56)
[2017-07-05] MEDS: METOPROLOL SUCC 50MG EXT REL TAB PO SCH (07:56)
[2017-07-05] MEDS: POTASSIUM CHLORIDE 20 MEQ TABCR PO SCH (07:57)
[2017-07-05] MEDS: DABIGATRAN ELEXILATE 75 MG CAP PO SCH (07:57)
[2017-07-05] MEDS ORDERED: LISINOPRIL 10 MG TAB PO SCH (08:00)
--- NOTE | 2017-07-05 08:00 | Clinical Documentation Query ---
CLINICAL DOCUMENTATION QUERY 75 y/o M Hx AF, diastolic CHF, HTN, COPD, DM II, CKD III, CML, hypothyroidism, gout. The pt presents with persistent SOB for approximately one day. In your clinical opinion is this patient being managed for: ( ) Acute kidney failure ( ) Not Agree ( x ) Other explanation of clinical findings (Please Explain) Acute/chronic diastolic CHF - documented in d/c summary ( ) Unable to determine (Please Define) ( ) Need to Discuss The medical record reflects the following clinical findings, treatment, and risk factors. Clinical Indicators: Creatinine 1.52 trending up to 1.90, GFR 44.2 trending down to 33.7 Treatment: IV hydration, PRP Risk Factors: Age, HTN, CHF, CKD Please clarify and document your clinical opinion in the progress notes and discharge summary. Terms such as "probable", "suspected", "likely", "questionable", "possible", or "still to be ruled out" are acceptable. IF IN AGREEMENT, YOU MUST DOCUMENT ABOVE DIAGNOSTIC STATEMENT IN DAILY PROGRESS NOTES AND DISCHARGE SUMMARY. This document is not part of the patient's record. Thank You, Minna Camacho RN [phone]
--- NOTE | 2017-07-05 08:06 | DIAGNOSTIC IMAGING REPORT ---
CHEST 2 VIEWS ROUTINE CLINICAL HISTORY: 76 years-old Male presenting with CHF vs pneumonia, interval change . TECHNIQUE: PA and lateral views of the chest were obtained. COMPARISON: 07/02/2017. FINDINGS: Atherosclerosis of aortic arch with mild tortuosity of the prominent descending thoracic aorta. Cardiac silhouette remains enlarged. Slight interval decrease in minimal hazy central and bibasilar opacities. Interval decrease in pulmonary vascular prominence. No new pulmonary opacity. Trace bilateral pleural effusions. No pneumothorax. Degenerative changes of the thoracic spine. Cholecystectomy clips noted. IMPRESSION: 1. Decreasing pulmonary edema with trace bilateral pleural effusions. Electronically signed by: Irving Dang M.D. 07/05/2017 8:05 AM Dictated Date/Time: 07/05/2017 8:03 AM
[2017-07-05] MEDS ORDERED: LSN10 PO (10:02)
--- NOTE | 2017-07-05 10:13 | Discharge Instructions ---
Discharge Instructions Date of Service Jul 05, 2017. Admission Reason for Admission: Pneumonia Discharge Discharge Diagnosis / Problem: Acute on chronic diastolic congestive heart failure Discharge Goals Goal(s): Decrease discomfort, Improve function, Diagnostic testing, Therapeutic intervention Activity Recommendations Activity Limitations: resume your previous activity (as tolerated) . Instructions / Follow-Up Instructions / Follow-Up You were admitted to the hospital after presenting with persistent shortness of breath. There was initially a concern for pneumonia, however after further evaluation, your shortness of breath appeared to be more secondary to an acute exacerbation of your chronic congestive heart failure. This is likely due to your Lasix (furosemide) dose being decreased recently. You were treated with IV Lasix which did help improve your breathing. As you are now back to your baseline, you are medically stable for discharge. Medications: *Your Lasix (furosemide) dose has been changed to 80 mg in the morning and 40 mg in the evening. This medication is a diuretic for your heart failure/fluid retention. *Your lisinopril dose was increased from 5 mg to 10 mg daily. This medication is for your blood pressure. *Continue your other home medications as prescribed. Follow up: *You will be scheduled to follow up with your primary care provider and nephrology. Please seek medical attention if you experience fevers, chills, sweats, dizziness/lightheadedness, loss of consciousness, chest pain, shortness of breath, nausea, vomiting, numbness or tingling. Call your Primary Care doctor if any of the following symptoms or problems start or get worse: * Shortness of breath or difficulty breathing * Wake up at night short of breath * Chest pain * Cough * Swelling of your hands, feet, or legs * More fatigued or tired with your normal activity * Palpitations - sudden fast heart beats WEIGHT * Weigh yourself every morning after using the bathroom. * Use the same scale. * Wear the same amount of clothing. * Write your weight down on a chart. * Call your Primary Care doctor if you gain more than 2-3 pounds in 1-2 days. MEDICATIONS * Use this discharge instruction sheet for medication instructions. * Take your medications at the time your doctor ordered. * Do not skip a dose of your medicines. * If you miss a dose of medicine, take it as soon as possible, but DO NOT DOUBLE A DOSE. * Read your medicine information when you get home. * Know all of the side effects of your medicine. If in doubt, ask your pharmacist * Call your Primary Care doctor's office if you have any side effects. * Be sure all of your doctors know what medicine and herbs you take (including cold, flu, and herbal medicine). Take the following with you to your follow-up doctor appointments: * Weight Chart * Medication List * List of questions Do not drink excessive alcohol, beer or wine. Current Hospital Diet Patient's current hospital diet: AHA Diet (Heart Healthy), Diabetes Type 2 Diet Discharge Diet Recommended Diet: Low Sodium Diet (2gm Na), Diabetes Type 2 Diet Pending Studies Studies pending at discharge: no Laboratory Results Hemoglobin A1c Test 04/08/17 08:27 Range/Units Estimated Average Glucose 137 mg/dl Hemoglobin A1c 6.4 H 4.5-5.6 % Lipid Panel Test 04/08/17 08:27 Range/Units Triglycerides Level 97 0-150 mg/dl Cholesterol Level 139 0-200 mg/dl HDL Cholesterol 60 mg/dl Cholesterol/HDL Ratio 2.3 LDL Cholesterol, Calculated 60 mg/dl Medical Emergencies . Who to Call and When: Call 911 or go to the Emergency Room if: * If at any time you feel your situation is an emergency * You have tightness or pain in your chest that does not go away with rest or Nitroglycerin * You are very short of breath even with rest . Non-Emergent Contact Non-Emergency issues call your: Primary Care Provider, Extracorporeal Technician . Past History Medical & Surgical History: (1) Acute on chronic diastolic (congestive) heart failure . "Provider Documentation" section prepared by Bernarda Saenz. . VTE Core Measure Inpt VTE Proph given/why not?: Other Anticoagulation (Pradaxa)
[2017-07-05] MEDS ORDERED: FUROSEMIDE 80 MG TAB PO ONE (10:15)
[2017-07-05] MEDS ORDERED: LSX/40 PO (10:19)
--- NOTE | 2017-07-05 10:34 | Discharge Summary ---
Discharge Summary Date of Service Jul 05, 2017. Discharge Summary Admission Date: Jul 02, 2017 at 02:57 Discharge Date: Jul 05, 2017 Discharge Disposition: Home Principal Diagnosis: Acute on chronic diastolic congestive heart failure Problems/Secondary Diagnoses: (1) Chronic atrial fibrillation Status: Chronic HTN COPD CML DM II CKD stage III Hypothyroidism Gout Immunizations: Have You Had Influenza Vaccine: Yes Influenza Vaccine Date: Jun 03, 2011 History of Tetanus Vaccine?: Yes History of Pneumococcal: Yes Pneumococcal Date: Oct 01, 2010 History of Hepatitis B Vaccine: No Medication Reconciliation New Medications: Furosemide (Lasix) 40 Mg Tab 1 TAB PO QPM for 30 Days, #30 TAB Lisinopril (Zestril) 10 Mg Tab 10 MG PO DAILY for 30 Days, #30 TAB Continued Medications: Allopurinol (Allopurinol) 300 Mg Tab 300 MG PO DAILY Cholecalciferol (Vitamin D3) 2,000 Unit Cap 1 CAP PO DAILY for 90 Days, #90 CAP 3 Refills Dabigatran Etexilate Mesylate (Pradaxa) 150 Mg Cap 75 MG PO BID Furosemide (Lasix) 80 Mg Tab 80 MG PO QAM, TAB Hydralazine HCl (Hydralazine HCl) 50 Mg Tab 50 MG PO TID for 30 Days, #90 TAB Take 1 tablet by mouth three times a day. Insulin Aspart 70/30 (Novolog Mix 70/30) Susp 20 UNITS SC BID Ipratropium-Albuterol (Combivent Respimat) 1 Aer Aer 2 PUFFS INH Q6H PRN for SOB/Wheezing, INH Isosorbide Mononitrate Ext Rel (Imdur Ext Rel) 120 Mg Ertab 120 MG PO DAILY Levothyroxine Sodium (Levothyroxine Sodium) 75 Mcg Tab 75 MCG PO Q2D Levothyroxine Sodium (Levothyroxine Sodium) 50 Mcg Tab 50 MCG PO Q2D Metoprolol Succinate (Toprol Xl) 200 Mg Tab 200 MG PO DAILY Potassium Ext Rel (Klor-Con) 20 Meq Tabcr 40 MEQ PO BID, TAB Discontinued Medications: Furosemide (Lasix) 80 Mg Tab 80 MG PO QPM for 30 Days, #30 DOSE Lisinopril (Lisinopril) 5 Mg Tab 5 MG PO DAILY for 30 Days, #30 TAB Take 1 tablet by mouth once daily. Discharge Exam The patient reports feeling well. He denies any shortness of breath and states that his breathing has returned to baseline. He denies any orthopnea or PND. He does report a non-productive cough. He states that he had some wheezing yesterday, but denies any today. The patient denies fevers, chills, sweats, chest pain, palpitations, claudication, wheezing, shortness of breath, nausea, vomiting, abdominal pain, dysuria, hematuria, urinary retention, paralysis, weakness, acute numbness and tingling. Constitutional: No fever, No chills, No sweats Eyes: No worsening of vision, No eye pain, No diplopia ENT: No hearing loss, No nasal symptoms, No trouble swallowing Respiratory: +Cough. No wheezing, No shortness of breath Cardiovascular: No chest pain, No claudication, No palpitations Abdomen: No pain, No nausea, No vomiting Musculoskeletal: No joint pain, No muscle pain, No swelling Genitourinary - Male: No dysuria, No urinary retention, No hematuria Neurologic: +Chronic numbness/tingling in feet. No paralysis, No weakness Integumentary: No rash, No itch, No color change General appearance: +Obese. Well-developed, well-nourished, no apparent distress Head: Normocephalic, atraumatic Eyes: Normal inspection, PERRL, EOMI ENT: Normal ENT inspection, hearing grossly normal, pharynx normal Neck: Supple, no JVD, trachea midline Respiratory/Chest: +Decreased breath sounds. Lungs clear to auscultation, no respiratory distress Cardiovascular: +Irregularly irregular, rate controlled. Systolic murmur. No gallop Abdomen/GI: Normal bowel sounds, non-tender, soft Extremities/Musculoskeletal: +Trace pitting edema. Normal inspection, no calf tenderness Neurological/Psych: Alert, normal mood/affect, oriented x 3 Skin: Normal color, warm/dry, no rash Hospital Course 75 y/o male with a history of a-fib, chronic diastolic CHF, HTN, COPD, DM II, CKD III, CML, hypothyroidism, and gout who presents with persistent SOB for approximately one day. CXR on admission is consistent with a RLL pneumonia. Acute on chronic diastolic CHF--resolving -Last Echo completed 10/09 which showed EF of 50-55%, and moderate AI -Daily weights, strict I's & O's -UO 1850 cc, net balance -809 cc on 07/04 -Pt had been on Lasix 80 mg PO BID, recently decreased to qd dosing by nephro due to elevated creatinine -D/C on Lasix 80 mg PO qam and 40 mg PO qpm -F/u with nephrology -Continue BB, lisinopril ?PNA -Repeat CXR 07/05 shows decreasing edema, no clear evidence of PNA -Abx d/c'd, had been on azithromycin and ceftriaxone -DuoNebs A-fib, HTN--stable, a-fib rate controlled - Continue metoprolol succinate 200 mg PO qd, Imdur 120 mg PO qd, and Pradaxa 75 mg PO BID -Lisinopril increased to 10 mg PO qd COPD--stable, no acute exacerbation -On room air, no accessory muscle use. -Continue Combivent DM II--last HgbA1c checked 04/11/17 was 9.4 -Hold home 70/30, can resume on d/c. Recommend f/u with PCP regarding elevated A1c -Insulin sliding scale -Check BSGs q ac and qhs CKD stage III--stable -Creatinine 1.9 on discharge -Had received Lasix 80 mg PO BID for most of admission with IV Lasix for one day. D/C with Lasix regimen as above, f/u with nephro CML--stable -In remission -WBC count is WNL Gout--stable -Continue allopurinol 300 mg PO qd DVT prophylaxis -Pradaxa Code Status -Level I, FULL RESUSCITATION STATUS Attending Discharge Note & Attestation: Pt seen/examined, chart reviewed, discharge care plan d/w RIKA Saenz. I agree w/ the pemberton components of her discharge summary. 76yo male w/ h/o CKD stage 3, a. fib, and chronic diastolic CHF who presented with dyspnea. Initially there was concern about pneumonia, but as his hospitalization went on it became more apparent that volume overload from his CHF was the likely culprit for his symptoms. He was diuresed throughout his stay with clinical & radiographic improvement. All pulmonary symptoms resolved prior to discharge. He mentioned that his lasix dose had recently been cut back from 80mg BID to 80mg QD about 2-3 weeks prior to this hospitalization (due to worsening renal function). I suspect that this played a role in his decompensation. At discharge the following were recommended - * continue lasix 80mg QAM * resume lasix in the afternoon but use 40mg * increase lisinopril to 10mg once daily for improved BP control Discharge exam - gen - NAD, obese neck - JVD improved heart - irregular, s1, s2, 2/6 systolic murmur LLSB lungs - CTA b/l; wheezes resolved; good airation abd - soft, NT ext - trace edema b/l CHF instructions were given at discharge. Khang Valentino MD Total Time Spent: Greater than 30 minutes This includes examination of the patient, discharge planning, medication reconciliation, and communication with other providers. Discharge Instructions Please refer to the electronic Patient Visit Report (Discharge Instructions) for additional information. Follow-Up 1. Dr. Julio on WednesdayJuly 12 at 1:50 pm. 2. [facility] - Genevieve Warren PA-C on July 15 at 2:30 pm. 3. [facility]phrology Office - Dr. Zavaleta on July 15 at 3:15 pm. Additional Copies To Adam Zavaleta M.D.; Genevieve Warren .VALERIE; Errol Julio M.D.
[2017-07-05 12:21] VITALS: BP 161/88; PULSE 70; TEMP 36.6; O2SAT 95
== END 2017-07-05 13:25 | disposition home or self-care (01) | DRG 291 ==
LOC: C.EDB 23:39 → C.MS4W 07-02 02:57 → ENRESERV 07-02 03:03
PROVIDERS: ADMIT Internal Medicine; ATTEND Internal Medicine
DX: I50.33 Acute on chronic diastolic (congestive) heart failure (principal); J18.9 Pneumonia, unspecified organism; C93.11 Chronic myelomonocytic leukemia, in remission; I48.2 Chronic atrial fibrillation; H91.93 Unspecified hearing loss, bilateral; I11.0 Hypertensive heart disease with heart failure; M10.9 Gout, unspecified; J44.9 Chronic obstructive pulmonary disease, unspecified; E11.9 Type 2 diabetes mellitus without complications; N18.3 Chronic kidney disease, stage 3 (moderate); Z87.01 Personal history of pneumonia (recurrent); Z88.5 Allergy status to narcotic agent; Z87.891 Personal history of nicotine dependence; Z90.49 Acquired absence of other specified parts of digestive tract; Z83.3 Family history of diabetes mellitus; Z82.49 Family history of ischemic heart disease and other diseases of the circulatory system

== ENCOUNTER → 2017-07-13 | Outpatient (CLI) | payer OTHER ==
[~2017-07-13] MED LIST changes: -IMDSR60 PO; +ISOS120T5 PO; +LSN10 PO; -LSN5 PO; +LSX/40 PO; -MAGN500T4 PO; -POLY335019 PO; -TYLOTC500 PO; -ZOLP5TAB6 PO
[2017-07-13 12:34] LABS: BLOOD UREA NITROGEN 29 mg/dl (7-18); BUN/CREATININE RATIO 18.3 (10-20); CARBON DIOXIDE 30 mmol/L (21-32); CHLORIDE 106 mmol/L (98-107); CREATININE 1.56 mg/dl (0.60-1.40); GLUCOSE 85 mg/dl (70-99); MAGNESIUM 2.4 mg/dl (1.8-2.4); POTASSIUM 3.7 mmol/L (3.5-5.1); SODIUM 141 mmol/L (136-145)
[2017-07-13 12:35] LABS: PHOSPHORUS 2.9 mg/dl (2.5-4.9)
== END | disposition home or self-care (01) ==
LOC: C.LAB1850 11:14
PROVIDERS: ATTEND Internal Medicine Nephrology
DX: I12.9 Hypertensive chronic kidney disease with stage 1 through stage 4 chronic kidney disease, or unspecified chronic kidney disease (principal); N18.3 Chronic kidney disease, stage 3 (moderate); E87.6 Hypokalemia; D64.9 Anemia, unspecified; R80.9 Proteinuria, unspecified; E55.9 Vitamin D deficiency, unspecified; R42 Dizziness and giddiness

== ENCOUNTER 2017-09-03 06:09 | Emergency (ER) | payer OTHER ==
[~2017-09-03] VITALS: Ht 177.8 cm; Wt 118.9 kg
[~2017-09-03 06:09] MED LIST changes: -ALL300 PO; -CHOL2000 PO; -DABI150C PO; -FURO80TA63 PO; -IPRA1AER2 INH; -LEVO50TA6 PO; -LEVO75TA5 PO; -METO-648 PO; -NVLGI7030 SC; -POTA20TA16 PO
[2017-09-03 06:14] VITALS: TEMP 36.4; Ht 177.8 cm; Wt 118.9 kg
[2017-09-03] MEDS ORDERED: FUROSEMIDE 40 MG/4 ML VIAL IV STA ×2 (06:25→08:38)
[2017-09-03] MEDS ORDERED: CHOL2000 PO (06:26)
--- NOTE | 2017-09-03 06:36 | EMERGENCY ROOM VISIT NOTE ---
History Report prepared by Mavis: Grant Rudd Under the Supervision of: Dr. Sherry Murray M.D. First contact with patient: 06:21 Chief Complaint: RESPIRATORY PROBLEMS Stated Complaint: HAVING TROUBLE BREATHING History of Present Illness The patient is a 76 year old male who presents to the Emergency Room with complaints of persistent shortness of breath for two weeks. He notes that he has not been able to sleep well in the last two weeks due to difficulty catching his breath. He denies any chest pain or fevers. He reports a cough, though he has taken two Coricidin pills yesterday and notes they provided relief for his cough. He has a history of CHF, DM, COPD, and aortic dissection. He states that he is a former smoker. Source of History: patient Onset: two weeks Position: other (global) Quality: other (shortness of breath) Timing: other (persistent) Associated Symptoms: + cough, No fevers, No chest pain Review of Systems See HPI for pertinent positives & negatives. A total of 10 systems reviewed and were otherwise negative. Past Medical & Surgical Medical Problems: (1) Acute on chronic diastolic (congestive) heart failure (2) Acute respiratory failure (3) Benign hypertension (4) Bilateral hearing loss (5) CHF exacerbation (6) Chronic atrial fibrillation (7) Chronic myeloid leukemia, disease (8) Dizziness (9) Hearing disorder (10) Heart disease (11) Pneumonia Surgical Problems: (1) S/P cholecystectomy Family History Diabetes mellitus FH: cancer FH: gallbladder disease FH: heart disease FH: hypertension Hypertension Stroke Social History Smoking Status: Former Smoker Alcohol Use: none Drug Use: none Marital Status: Housing Status: lives with significant other Occupation Status: retired Current/Historical Medications Scheduled Allopurinol (Allopurinol), 300 MG PO DAILY Cholecalciferol (Vitamin D3), 1 CAP PO DAILY Dabigatran Etexilate Mesylate (Pradaxa), 75 MG PO BID Furosemide (Lasix), 80 MG PO QAM Furosemide (Lasix), 40 MG PO afternoon Hydralazine Hcl (Apresoline), 50 MG PO TID Insulin Aspart 70/30 (Novolog Mix 70/30), 20 UNITS SC BID Isosorbide Mononitrate Ext Rel (Imdur Ext Rel), 120 MG PO DAILY Levothyroxine Sodium (Levothyroxine Sodium), 75 MCG PO Q2D Levothyroxine Sodium (Levothyroxine Sodium), 50 MCG PO Q2D Lisinopril (Prinivil), 10 MG PO DAILY Metoprolol Succinate (Toprol Xl), 200 MG PO DAILY Potassium Ext Rel (Klor-Con), 40 MEQ PO BID Scheduled PRN Acetaminophen (Tylenol), 1,000 MG PO UD PRN for Pain Ipratropium-Albuterol (Combivent Respimat), 2 PUFFS INH Q6H PRN for SOB/Wheezing Lorazepam (Ativan), 0.5 MG PO HS PRN for Anxiety Polyethylene Glycol 3350 (Miralax), 17 GM PO DAILY PRN for Constipation Allergies Coded Allergies: Adhesives (Verified Allergy, Unknown, RASH, 09/03/17) Latex1 -Allergic Contact Dermititis (Verified Adverse Reaction, Intermediate, BLISTERS SKIN, 09/03/17) Morphine (Verified Adverse Reaction, Intermediate, DELUSIONS, "LOSES TIME ", 09/03/17) STATED "HE SIAD HE WAS [facility] FOR THREE DAYS!" Physical Exam Vital Signs Date Time Temp Pulse Resp B/P (MAP) Pulse Ox O2 Delivery O2 Flow Rate FiO2 09/03/17 12:10 72 16 153/92 94 09/03/17 10:58 65 22 138/92 93 Room Air 09/03/17 10:48 73 09/03/17 09:28 67 24 208/97 92 Room Air 09/03/17 07:49 73 28 90 Room Air 09/03/17 07:00 Room Air 09/03/17 06:53 71 09/03/17 06:14 36.4 69 20 199/88 92 Room Air Physical Exam Vital signs reviewed. General: Well-appearing, in no significant distress. HEENT: No scleral icterus, PERRLA, neck supple. Atraumatic. Cardiovascular: Regular rate and rhythm, no extra sounds. Pulmonary: Diminished breath sounds at the bases bilaterally, increased work of breathing. Abdomen: Soft, nontender, nondistended, positive bowel sounds. Obese. Musculoskeletal: Atraumatic, 1+ edema of bilateral LE. Neurologic: Patient awake alert and oriented x 3 Skin: Warm, dry, no rash Medical Decision & Procedures ER Provider Diagnostic Interpretation: Radiology results as stated below per my review and radiologist interpretation: CHEST ONE VIEW PORTABLE HISTORY: 76 years-old Male SOB acute shortness of breath COMPARISON: Chest radiographs 07/05/2017 TECHNIQUE: Portable AP view of the chest FINDINGS: Cardiac silhouette is again moderately enlarged. Atherosclerosis of the aorta. Mild pulmonary vascular congestion with minimal interstitial coarsening. Trace right and small left pleural effusions with hazy left greater than right bibasilar opacities. No pneumothorax. Bones of the chest appear grossly intact. IMPRESSION: 1. Cardiomegaly with mild pulmonary edema. 2. Trace right and small left pleural effusions with left greater than right bibasilar opacities favoring atelectasis. The above report was generated using voice recognition software. It may contain grammatical, syntax or spelling errors. Electronically signed by: Alphonso Jensen M.D. 09/03/2017 6:56 AM Dictated Date/Time: 09/03/2017 6:54 AM Laboratory Results 09/03/17 06:35 Red Blood Count 4.85, Mean Corpuscular Volume 96.7, Mean Corpuscular Hemoglobin 31.3, Mean Corpuscular Hemoglobin Concent 32.4, Mean Platelet Volume 10.7, Neutrophils (%) (Auto) 76.0, Lymphocytes (%) (Auto) 12.1, Monocytes (%) (Auto) 7.5, Eosinophils (%) (Auto) 2.6, Basophils (%) (Auto) 0.3, Neutrophils # (Auto) 6.95, Lymphocytes # (Auto) 1.11, Monocytes # (Auto) 0.69, Eosinophils # (Auto) 0.24, Basophils # (Auto) 0.03 09/03/17 06:35 Test 09/03/17 06:35 09/03/17 06:43 09/03/17 07:00 White Blood Count 9.16 K/uL (4.8-10.8) Red Blood Count 4.85 M/uL (4.7-6.1) Hemoglobin 15.2 g/dL (14.0-18.0) Hematocrit 46.9 % (42-52) Mean Corpuscular Volume 96.7 fL (80-100) Mean Corpuscular Hemoglobin 31.3 pg (25-34) Mean Corpuscular Hemoglobin Concent 32.4 g/dl (32-36) Platelet Count 203 K/uL (130-400) Mean Platelet Volume 10.7 fL (7.4-10.4) Neutrophils (%) (Auto) 76.0 % Lymphocytes (%) (Auto) 12.1 % Monocytes (%) (Auto) 7.5 % Eosinophils (%) (Auto) 2.6 % Basophils (%) (Auto) 0.3 % Neutrophils # (Auto) 6.95 K/uL (1.4-6.5) Lymphocytes # (Auto) 1.11 K/uL (1.2-3.4) Monocytes # (Auto) 0.69 K/uL (0.11-0.59) Eosinophils # (Auto) 0.24 K/uL (0-0.5) Basophils # (Auto) 0.03 K/uL (0-0.2) RDW Standard Deviation 50.1 fL (36.4-46.3) RDW Coefficient of Variation 14.2 % (11.5-14.5) Immature Granulocyte % (Auto) 1.5 % Immature Granulocyte # (Auto) 0.14 K/uL (0.00-0.02) Prothrombin Time 10.8 SECONDS (9.0-12.0) Prothromb Time International Ratio 1.0 (0.9-1.1) Activated Partial Thromboplast Time 34.2 SECONDS (21.0-31.0) Partial Thromboplastin Ratio 1.3 Anion Gap 7.0 mmol/L (3-11) Est Creatinine Clear Calc Drug Dose 53.2 ml/min Estimated GFR () 50.0 Estimated GFR (Non- 43.2 BUN/Creatinine Ratio 19.7 (10-20) Calcium Level 8.9 mg/dl (8.5-10.1) Magnesium Level 2.3 mg/dl (1.8-2.4) Total Bilirubin 0.9 mg/dl (0.2-1) Direct Bilirubin 0.2 mg/dl (0-0.2) Aspartate Amino Transf (AST/SGOT) 29 U/L (15-37) Alanine Aminotransferase (ALT/SGPT) 25 U/L (12-78) Alkaline Phosphatase 108 U/L (45-117) Total Creatine Kinase 131 U/L (39-308) Creatine Kinase MB 2.7 ng/ml (0.5-3.6) Creatine Kinase MB Ratio 2.1 (0-3.0) Pro-B-Type Natriuretic Peptide 4456 pg/ml (0-900) Total Protein 7.1 gm/dl (6.4-8.2) Albumin 3.2 gm/dl (3.4-5.0) Bedside Troponin I < 0.030 ng/ml (0-0.045) Urine Color YELLOW Urine Appearance CLEAR (CLEAR) Urine pH 6.0 (4.5-7.5) Urine Specific [place] 1.009 (1.000-1.030) Urine Protein 3+ (NEG) Urine Glucose (UA) NEG (NEG) Urine Ketones NEG (NEG) Urine Occult Blood NEG (NEG) Urine Nitrite NEG (NEG) Urine Bilirubin NEG (NEG) Urine Urobilinogen NEG (NEG) Urine Leukocyte Esterase NEG (NEG) Urine WBC (Auto) 1-5 /hpf (0-5) Urine RBC (Auto) 0-4 /hpf (0-4) Urine Hyaline Casts (Auto) 5-10 /lpf (0-5) Urine Epithelial Cells (Auto) 10-20 /lpf (0-5) Urine Bacteria (Auto) NEG (NEG) Influenza Type A Antigen Neg for Influ A (NEG) Influenza Type B Antigen Neg for Influ B (NEG) Laboratory results per my review. Medications Administered Medications (Trade) Dose Ordered Sig/Isabella Route Start Time Stop Time Status Last Admin Dose Admin Furosemide (Lasix Inj) 40 mg NOW STAT IV 09/03/17 06:25 09/03/17 06:27 DC 09/03/17 06:55 40 MG Lisinopril (Zestril Tab) 10 mg NOW STAT PO 09/03/17 07:33 09/03/17 07:36 DC 09/03/17 09:33 10 MG Isosorbide Mononitrate (Imdur Ext Rel Tab) 120 mg NOW STAT PO 09/03/17 07:33 09/03/17 07:36 DC 09/03/17 09:33 120 MG Hydralazine HCl (Apresoline Tab) 50 mg NOW STAT PO 09/03/17 07:33 09/03/17 07:36 DC 09/03/17 09:32 50 MG Allopurinol (Zyloprim Tab) 300 mg NOW STAT PO 09/03/17 07:33 09/03/17 07:36 DC 09/03/17 09:33 300 MG Dabigatran (Pradaxa Cap) 75 mg NOW STAT PO 09/03/17 07:33 09/03/17 07:36 DC 09/03/17 09:34 75 MG Metoprolol Succinate (Toprol Xl Tab) 200 mg NOW STAT PO 09/03/17 07:33 09/03/17 07:36 DC 09/03/17 09:32 200 MG Furosemide (Lasix Inj) 40 mg NOW STAT IV 09/03/17 08:38 09/03/17 08:39 DC 09/03/17 10:00 40 MG ECG Indication: SOB/dyspnea Rate (beats per minute): 67 Rhythm: atrial fibrillation Findings: PVC, RBBB (incomplete RBB) Change: no significant change (07/01/2017) Change: Patient's electrocardiogram interpreted by me. ED Course 06: Past medical records reviewed. The patient was evaluated in room A2. A complete history and physical examination was performed. 0625: Ordered Lasix 40 mg IV 0733: Ordered Toprol XI 200 mg PO, Pradaxa 75 mg PO, Zyloprim 300 mg PO, Apresoline 50 mg PO, Isosorbide Mononitrate 120 mg PO, and Lisinopril 10 mg PO 0834: I reassessed the patient at this time. I updated the patient. 0838: Ordered Lasix 40 mg 0907: I spoke with Dr. Blanchard [facility] cardiology. We discussed the patient's case. The patient will be further evaluated. 1140: I reassessed the patient at this time. He is resting. I discussed the results and treatment plan with the patient. I answered all pertaining questions that he had. He expressed understanding and verbalized agreement. The patient will be discharged home. 1105: [facility] He recommends following up with the him as an outpatient. Medical Decision Differential diagnosis: Etiologies such as infections, reactive airway disease, pneumonia, pneumothorax , COPD, CHF, cardiac ischemia, pulmonary embolism, musculoskeletal, gastrointestinal, as well as others were entertained. This patient was evaluated and appeared to be in no significant distress. IV access was obtained and laboratory work was drawn. Patient was placed on the quality assurance monitor and found to be in a rate controlled atrial fibrillation with a right bundle-branch block. The patient was given 40 mg of IV Lasix. Chest x- ray confirms pulmonary vascular congestion. Patient's cardiac enzymes are negative. Patient was given an additional 40 mg of IV Lasix as well as his morning blood pressure medications. Case was discussed with cardiology, Dr. Blanchard who evaluated the patient in the emergency department. He discuss the patient's outpatient medication regimen. Patient are comfortable with the plan for discharge. He has begun diuresing. He will follow-up with the heart failure clinic next week and return to the ER for worsening of symptoms or any medical concerns. Medication Reconcilliation Current Medication List: was personally reviewed by me Blood Pressure Screening Patient's blood pressure: Elevated blood pressure Blood pressure disposition: Elevated BP felt to be situational Consults Time Called: 08 Consulting Physician: SHMUEL Hall cardiology Returned Call: 09 I spoke with SHMUEL Hall cardiology. We discussed the patient's case. The patient will be further evaluated. 1105: I spoke with SHMUEL Hall cardiology. He recommends following up with the him as an outpatient. Impression Primary Impression: CHF (congestive heart failure) Scribe Attestation The scribe's documentation has been prepared under my direction and personally reviewed by me in its entirety. I confirm that the note above accurately reflects all work, treatment, procedures, and medical decision making performed by me. Departure Information Dispostion Home / Self-Care Referrals Errol Julio M.D. (PCP) Forms HOME CARE DOCUMENTATION FORM, IMPORTANT VISIT INFORMATION, WORK / SCHOOL INSTRUCTIONS Patient Instructions My [facility] Additional Instructions Diagnosis: Congestive heart failure Take your medications as directed by Dr. Blanchard today in the emergency department. Follow-up in clinic as scheduled. Return to the emergency department for worsening of symptoms or any medical concerns.
[2017-09-03 06:54] LABS: BASO % 0.3 %; BASO ABS # 0.03 K/uL (0-0.2); EOS % 2.6 %; EOS ABS # 0.24 K/uL (0-0.5); HEMATOCRIT 46.9 % (42-52); HEMOGLOBIN 15.2 g/dL (14.0-18.0); IG# 0.14 K/uL (0.00-0.02); LYMPH % 12.1 %; LYMPH ABS # 1.11 K/uL (1.2-3.4); MEAN CELL VOLUME 96.7 fL (80-100); MEAN CORPUSCULAR HEMOGLOBIN 31.3 pg (25-34); MEAN CORPUSCULAR HGB CONC 32.4 g/dl (32-36); MEAN PLATELET VOLUME 10.7 fL (7.4-10.4); MONO % 7.5 %; MONO ABS # 0.69 K/uL (0.11-0.59); NEUT ABS # 6.95 K/uL (1.4-6.5); PLATELET COUNT 203 K/uL (130-400); RED CELL DISTRIBUTION WIDTH CV 14.2 % (11.5-14.5); RED CELL DISTRIBUTION WIDTH SD 50.1 fL (36.4-46.3); WHITE BLOOD COUNT 9.16 K/uL (4.8-10.8)
[2017-09-03 06:58] LABS: PTT PATIENT 34.2 SECONDS (21.0-31.0)
--- NOTE | 2017-09-03 06:58 | DIAGNOSTIC IMAGING REPORT ---
CHEST ONE VIEW PORTABLE HISTORY: 76 years-old Male SOB acute shortness of breath COMPARISON: Chest radiographs 07/05/2017 TECHNIQUE: Portable AP view of the chest FINDINGS: Cardiac silhouette is again moderately enlarged. Atherosclerosis of the aorta. Mild pulmonary vascular congestion with minimal interstitial coarsening. Trace right and small left pleural effusions with hazy left greater than right bibasilar opacities. No pneumothorax. Bones of the chest appear grossly intact. IMPRESSION: 1. Cardiomegaly with mild pulmonary edema. 2. Trace right and small left pleural effusions with left greater than right bibasilar opacities favoring atelectasis. The above report was generated using voice recognition software. It may contain grammatical, syntax or spelling errors. Electronically signed by: Alphonso Jensen M.D. 09/03/2017 6:56 AM Dictated Date/Time: 09/03/2017 6:54 AM
[2017-09-03 07:07] LABS: ALBUMIN 3.2 gm/dl (3.4-5.0); CALCIUM 8.9 mg/dl (8.5-10.1); CREATININE 1.55 mg/dl (0.60-1.40)
[2017-09-03 07:13] LABS: CKMB 2.7 ng/ml (0.5-3.6); TOTAL PROTEIN 7.1 gm/dl (6.4-8.2)
[2017-09-03] MEDS ORDERED: FRS/40 PO (07:29)
[2017-09-03] MEDS ORDERED: HYDR-4717 PO (07:29)
[2017-09-03] MEDS ORDERED: LISI10TA PO (07:29)
[2017-09-03] MEDS ORDERED: POLY335019 PO (07:30)
[2017-09-03] MEDS ORDERED: LORA-741 PO (07:30)
[2017-09-03] MEDS ORDERED: ACET-1256 PO (07:30)
[2017-09-03] MEDS ORDERED: METOPROLOL SUCC 50MG EXT REL TAB PO STA (07:33)
[2017-09-03] MEDS ORDERED: LISINOPRIL 10 MG TAB PO STA (07:33)
[2017-09-03] MEDS ORDERED: ALLOPURINOL 300 MG TAB PO STA (07:33)
[2017-09-03] MEDS ORDERED: DABIGATRAN ELEXILATE 75 MG CAP PO STA (07:33)
[2017-09-03] MEDS ORDERED: ISOSORBIDE MONONITRATE 60 MG TABCR PO STA (07:33)
[2017-09-03 07:53] LABS: INFLUENZA B ANTIGEN Neg for Influ B (NEG)
[2017-09-03] MEDS ORDERED: LEVO75TA5 PO (08:04)
[2017-09-03] MEDS ORDERED: IPRA1AER2 INH (08:23)
[2017-09-03 12:10] VITALS: BP 153/92; PULSE 72; O2SAT 94
[2017-09-03] MEDS ORDERED: NVLGI7030 SC (13:00)
--- NOTE | 2017-09-03 14:21 | CARDIOLOGY CONSULTATION ---
DATE OF CONSULTATION: 09/03/2017 PERTINENT HISTORY: Mr. Olvera is a 76-year-old white male, who presented to the Emergency Room earlier today with shortness of breath. He was found to be in decompensated diastolic congestive heart failure. Dr. Murray has evaluated the patient. Of note, he is typically followed by Dr. Wolf in the outpatient setting. The patient claims that he was in his usual state of health until approximately 1 week prior to his presentation. He began noticing intermittent shortness of breath with exertion. He also experienced 2-3 nights with orthopnea. Just prior to presentation today, the patient was noticing significant PND and orthopnea. He becomes quite anxious when lying supine. The patient does follow daily weights at home. It is typical "dry." Weight is 256 pounds. He usually takes furosemide 80 mg q.a.m. and 40 mg q.p.m. He uses metolazone p.r.n. for weight gain. The patient's weight this morning was 260 pounds, up 4 pounds from his typical dry weight. He did not use metolazone as he was concerned that it may injure his kidneys. The patient does admit to noncompliance with low salt diet. He has received his today's furosemide here and had a significant diuresis. He is dramatically improved and is anxious for discharge from the Emergency Room. PAST MEDICAL HISTORY: 1. Idiopathic cardiomyopathy -- 25% -- 2011 -- resolved. 2. Normal left ventricular ejection fraction - 50%-55% -- September 2016. 3. Normal coronary arteries -- 2011. 4. Chronic diastolic CHF. 5. Hypertension. 6. Moderate left ventricular hypertrophy. 7. Mild aortic insufficiency. 8. Permanent atrial fibrillation. 9. Chronic type B dissection. 10. Diabetes mellitus. 11. Chronic renal failure. 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 13. Hypothyroidism. 14. Gout. MEDICATIONS: 1. Metoprolol succinate 200 mg daily. 2. Lisinopril 10 mg per day. 3. Imdur 120 mg per day. 4. Hydralazine 50 mg t.i.d. 5. Lasix 80 mg q.a.m. and 40 mg q.p.m. 6. Potassium 40 mEq b.i.d. 7. Pradaxa 75 mg b.i.d. 8. Insulin 70/30, 20 units subQ b.i.d. 9. Allopurinol 300 mg per day. 10. Synthroid 0.075 alternating with 0.05 on a daily basis. 11. Metolazone p.r.n. ALLERGIES: LATEX. SOCIAL HISTORY: The patient is and lives with his . Quit tobacco use in 1980. Does not use alcohol. FAMILY HISTORY: Father in his 50s from an MD. Mother in her 50s from a ruptured aortic aneurysm. REVIEW OF SYSTEMS: A 10-point review of systems is negative except for that described above. PHYSICAL EXAMINATION: GENERAL: He is a well-developed and well-nourished white male, lying at 45 degrees in bed without complaints. VITAL SIGNS: Blood pressure is 138/90 with an irregular pulse of 65. Respiratory rate is 20 and the patient is afebrile at 36.8 degrees Celsius. Saturation 93% on room air. HEENT: Negative. NECK: Supple with full carotid upstrokes. No carotid bruits. Jugular venous pressure is flat at 90 degrees. There is no thyromegaly. CARDIOVASCULAR: Reveals an irregularly irregular rhythm with distant heart sounds. No obvious murmurs. No S3. LUNGS: Clear without rales, rhonchi, or wheezes. ABDOMEN: Obese without bruits. There is no hepatomegaly. EXTREMITIES: Reveal intact radial artery pulses bilaterally. Trace pretibial edema is noted. LABORATORY DATA: CBC notes a hemoglobin of 15.2, hematocrit 46.9, white count 9.1, and platelet count 203,000. Electrolytes note a sodium of 141, potassium 4.0, chloride 107, bicarb 27, BUN 31, creatinine 1.55, and glucose 111. Troponin I levels are undetectable at less than 0.03. BNP is elevated at 4456. EKG notes atrial fibrillation with aberrant or premature ventricular contractions. There is an old anterolateral infarct pattern. Chest x-ray notes cardiomegaly with mild pulmonary edema. Trace pleural effusions are noted. IMPRESSION: Mr. Olvera was admitted with acute on chronic diastolic congestive heart failure. We have discussed the importance of adherence to a low salt diet. We have also reinforced the use of sliding scale diuretics and daily weights. In short, his "dry weight" is 256 pounds with a "trigger" weight of 259 pounds. When his weight has increased, he noted to administer 1 dose of his metolazone as he did previously. Hopefully, he will better control his volume status as an outpatient. He does have an upcoming appointment with Genevieve Good in our heart failure clinic. PLAN: 1. Agree with intravenous diuretics. 2. Continue daily weights and sliding scale diuretics as described above. 3. Stable for hospital discharge.
[2017-09-03] MEDS ORDERED: LEVO50TA6 PO (17:52)
[2017-09-03] MEDS ORDERED: DABI150C PO (17:52)
[2017-09-03] MEDS ORDERED: METO200T31 PO (17:52)
[2017-09-03] MEDS ORDERED: ALL300 PO (17:57)
[2017-09-03] MEDS ORDERED: FURO80TA63 PO (23:42)
[2017-09-03] MEDS ORDERED: POTA20TA16 PO (23:44)
== END 2017-09-03 12:12 | disposition home or self-care (01) ==
LOC: C.EDB 06:11 → C.EDA 12:12
DX: I50.9 Heart failure, unspecified (principal); I10 Essential (primary) hypertension; I48.91 Unspecified atrial fibrillation; I51.9 Heart disease, unspecified; Z83.3 Family history of diabetes mellitus; Z82.49 Family history of ischemic heart disease and other diseases of the circulatory system; Z82.3 Family history of stroke; Z87.891 Personal history of nicotine dependence; Z79.4 Long term (current) use of insulin

== ENCOUNTER → 2017-09-24 | Outpatient (CLI) | payer OTHER ==
[~2017-09-24] MED LIST changes: +ACET-1256 PO; +ALL300 PO; -APR50 PO; +CHOL2000 PO; +DABI150C PO; +FRS/40 PO; +FURO80TA63 PO; +HYDR-4717 PO; +IPRA1AER2 INH; +LEVO50TA6 PO; +LEVO75TA5 PO; +LISI10TA PO; +LORA-741 PO; -LSN10 PO; -LSX/40 PO; +METO200T31 PO; +NVLGI7030 SC; +POLY335019 PO; +POTA20TA16 PO
[2017-09-24 16:14] LABS: HEMATOCRIT 44.3 % (42-52); HEMOGLOBIN 14.3 g/dL (14.0-18.0); MEAN CELL VOLUME 96.3 fL (80-100); MEAN CORPUSCULAR HEMOGLOBIN 31.1 pg (25-34); MEAN CORPUSCULAR HGB CONC 32.3 g/dl (32-36); MEAN PLATELET VOLUME 10.7 fL (7.4-10.4); PLATELET COUNT 203 K/uL (130-400); RED CELL DISTRIBUTION WIDTH CV 14.3 % (11.5-14.5); RED CELL DISTRIBUTION WIDTH SD 49.9 fL (36.4-46.3)
[2017-09-24 16:31] LABS: BLOOD UREA NITROGEN 31 mg/dl (7-18); CREATININE 1.58 mg/dl (0.60-1.40); GLUCOSE 78 mg/dl (70-99)
[2017-09-24 16:32] LABS: ALBUMIN 3.2 gm/dl (3.4-5.0); ALT/SGPT 29 U/L (12-78); AST/SGOT 28 U/L (15-37); CALCIUM 8.6 mg/dl (8.5-10.1); CARBON DIOXIDE 29 mmol/L (21-32); POTASSIUM 4.1 mmol/L (3.5-5.1); SODIUM 143 mmol/L (136-145)
[2017-09-24 16:42] LABS: PHOSPHORUS 3.9 mg/dl (2.5-4.9)
[2017-09-25 07:16] LABS: HEMOGLOBIN A1C 6.1 % (4.5-5.6)
== END | disposition home or self-care (01) ==
LOC: C.LAB1850 15:05
PROVIDERS: ATTEND Internal Medicine Nephrology
DX: I12.9 Hypertensive chronic kidney disease with stage 1 through stage 4 chronic kidney disease, or unspecified chronic kidney disease (principal); N18.3 Chronic kidney disease, stage 3 (moderate); D64.9 Anemia, unspecified; R80.9 Proteinuria, unspecified; E55.9 Vitamin D deficiency, unspecified; E87.6 Hypokalemia; E11.21 Type 2 diabetes mellitus with diabetic nephropathy; E03.9 Hypothyroidism, unspecified

== ENCOUNTER 2018-03-13 01:17 | Inpatient (IN) | payer OTHER ==
[2018-03-13] VITALS (7 sets, daily range): BP systolic 96–178; BP diastolic 54–96; PULSE 66–77; TEMP 36.3–36.6; O2SAT 90–95; Ht 177.8 cm; Wt 114.0 kg
[~2018-03-13] VITALS: Ht 177.8 cm; Wt 114.0 kg
[~2018-03-13 01:17] MED LIST changes: -DABI150C PO; +DABI1CAP PO; -FRS/40 PO; +LISI-789 PO; -LISI10TA PO; -LORA-741 PO; +LSX40 PO; -NVLGI7030 SC; +NVLGI7030 SQ; +POTA-639 PO; -POTA20TA16 PO
--- NOTE | 2018-03-13 01:54 | EMERGENCY ROOM VISIT NOTE ---
History Report prepared by Mavis: Khris Sanchez Under the Supervision of: Ana Luisa GarciaO. First contact with patient: 01:33 Chief Complaint: SHORTNESS OF BREATH Stated Complaint: SOB History of Present Illness The patient is a 77 year old male who presents to the Emergency Room with complaints of waxing and waning SOB that began 2-3 days ago. Patient states his symptoms are worsened when he lies down. He adds he has had LLQ abdominal pain, bilateral leg swelling, and coughing. He states being placed on oxygen in the ER has helped his symptoms. He states he does not use oxygen at home. He states he took Lorazepam tonight but it did not relieve his symptoms. Patient states he takes Lasix at home. Past medical history includes an COPD, fluid problems, aortic dissection, atrial fibrillation, and leukemia. Patient adds he ate "2-4" cookies and a "bag of Bugles" last night. He denies fevers or chest pain. Source of History: patient Onset: 2-3 days ago Position: chest Timing: waxes/wanes Modifying Factors (Worsening): other (Lying down) Modifying Factors (Relieving): oxygen Associated Symptoms: + cough, + abdominal pain, No fevers, No chest pain Note: Positive bilateral leg swelling. Review of Systems See HPI for pertinent positives & negatives. A total of 10 systems reviewed and were otherwise negative. Past Medical & Surgical Medical Problems: (1) Acute on chronic diastolic (congestive) heart failure (2) Acute respiratory failure (3) Benign hypertension (4) Bilateral hearing loss (5) Chest pain (6) CHF exacerbation (7) Chronic atrial fibrillation (8) Chronic myeloid leukemia, disease (9) Chronic renal disease (10) Dizziness (11) Hearing disorder (12) Heart disease (13) Hypertension (14) Pneumonia (15) Shortness of breath Surgical Problems: (1) S/P cholecystectomy Family History Diabetes mellitus FH: cancer FH: gallbladder disease FH: heart disease FH: hypertension Hypertension Stroke Social History Smoking Status: Never Smoker Alcohol Use: none Drug Use: none Marital Status: Housing Status: lives with significant other Occupation Status: retired Current/Historical Medications Scheduled Allopurinol (Allopurinol), 300 MG PO QAM Cholecalciferol (Vitamin D3), 2,000 UNITS PO DAILY Dabigatran Etexilate Mesylate (Pradaxa), 75 MG PO BID Furosemide (Lasix), 80 MG PO QAM Furosemide (Furosemide), 40 MG PO AFTERNOON Hydralazine Hcl (Apresoline), 50 MG PO TID Insulin Aspart 70/30 (Novolog Mix 70/30), 10 UNITS SQ BID Isosorbide Mononitrate Ext Rel (Imdur Ext Rel), 120 MG PO QAM Levothyroxine Sodium (Levothyroxine Sodium), 75 MCG PO Q2D Levothyroxine Sodium (Levothyroxine Sodium), 50 MCG PO Q2D Lisinopril (Zestril), 2.5 MG PO DAILY Metoprolol Succinate (Toprol Xl), 200 MG PO QAM Potassium Ext Rel (Klor-Con), 40 MEQ PO BID Scheduled PRN Acetaminophen (Tylenol), 1,000 MG PO UD PRN for Pain Ipratropium-Albuterol (Combivent Respimat), 2 PUFFS INH Q6H PRN for SOB/Wheezing Polyethylene Glycol 3350 (Miralax), 17 GM PO DAILY PRN for Constipation Allergies Coded Allergies: Adhesives (Verified Allergy, Unknown, RASH, 03/13/18) Latex1 -Allergic Contact Dermititis (Verified Adverse Reaction, Intermediate, BLISTERS SKIN, 03/13/18) Morphine (Verified Adverse Reaction, Intermediate, DELUSIONS, "LOSES TIME ", 03/13/18) STATED "HE SIAD HE WAS ABHISHEK THE EIGHT FOR THREE DAYS!" Physical Exam Vital Signs Date Time Temp Pulse Resp B/P (MAP) Pulse Ox O2 Delivery O2 Flow Rate FiO2 03/13/18 04:00 74 20 199/93 97 Nasal Cannula 3.0 03/13/18 03:25 71 24 191/94 95 Nasal Cannula 3.0 03/13/18 01:56 76 03/13/18 01:45 96 Nasal Cannula 3.0 03/13/18 01:43 96 Nasal Cannula 3.0 03/13/18 01:43 88 Room Air 03/13/18 01:28 36.4 77 24 183/72 92 Room Air Physical Exam HEENT: Head - normocephalic and atraumatic Pupils are equal, round, and reactive to light. Extraocular eye muscles are intact, and sclera are anicteric. Nose - moist nasal mucosa without discharge. Mouth - moist buccal mucosa. Oropharynx is nonerythematous and there is no tonsillar exudate or edema noted. Neck: Supple; no JVD, nuchal rigidity, cervical lymphadenopathy, or auscultated bruits. Heart: Irregularly irregular rate and rhythm which was distant on exam secondary to body habitus. There is a normal S1 and S2 with no murmurs, clicks , or gallops appreciated. Lungs: Absent breath sounds in left lung base. Rales in all other lung sanches. No wheezes or rhonchi. Abdomen: Protuberant, soft, completely nontender, with good bowel sounds. There are no palpable pulsatile masses or hepatosplenomegaly. There is no guarding, rigidity, or rebound noted. Extremities: 3+ edema in legs. No evidence of cyanosis, clubbing, or edema. There are easily palpable peripheral pulses. Skin: warm and dry with good turgor and no rashes. Medical Decision & Procedures ER Provider Diagnostic Interpretation: Radiology results as stated below per my review and the interpretation: CHEST X-RAY: X-ray shows large left sided pleural effusion, moderate congestive heart failure , and developing right sided pleural effusion. Laboratory Results 03/13/18 00:00 Red Blood Count 4.90, Mean Corpuscular Volume 95.5, Mean Corpuscular Hemoglobin 30.4, Mean Corpuscular Hemoglobin Concent 31.8, Mean Platelet Volume 10.6, Neutrophils (%) (Auto) 75.1, Lymphocytes (%) (Auto) 10.9, Monocytes (%) (Auto) 9.4, Eosinophils (%) (Auto) 3.1, Basophils (%) (Auto) 0.2, Neutrophils # (Auto) 6.32, Lymphocytes # (Auto) 0.92, Monocytes # (Auto) 0.79, Eosinophils # (Auto) 0.26, Basophils # (Auto) 0.02 Test 03/13/18 00:00 White Blood Count 8.42 K/uL (4.8-10.8) Red Blood Count 4.90 M/uL (4.7-6.1) Hemoglobin 14.9 g/dL (14.0-18.0) Hematocrit 46.8 % (42-52) Mean Corpuscular Volume 95.5 fL (80-100) Mean Corpuscular Hemoglobin 30.4 pg (25-34) Mean Corpuscular Hemoglobin Concent 31.8 g/dl (32-36) Platelet Count 195 K/uL (130-400) Mean Platelet Volume 10.6 fL (7.4-10.4) Neutrophils (%) (Auto) 75.1 % Lymphocytes (%) (Auto) 10.9 % Monocytes (%) (Auto) 9.4 % Eosinophils (%) (Auto) 3.1 % Basophils (%) (Auto) 0.2 % Neutrophils # (Auto) 6.32 K/uL (1.4-6.5) Lymphocytes # (Auto) 0.92 K/uL (1.2-3.4) Monocytes # (Auto) 0.79 K/uL (0.11-0.59) Eosinophils # (Auto) 0.26 K/uL (0-0.5) Basophils # (Auto) 0.02 K/uL (0-0.2) RDW Standard Deviation 50.2 fL (36.4-46.3) RDW Coefficient of Variation 14.4 % (11.5-14.5) Immature Granulocyte % (Auto) 1.3 % Immature Granulocyte # (Auto) 0.11 K/uL (0.00-0.02) Total Bilirubin 0.9 mg/dl (0.2-1) Aspartate Amino Transf (AST/SGOT) 26 U/L (15-37) Alanine Aminotransferase (ALT/SGPT) 27 U/L (12-78) Alkaline Phosphatase 126 U/L (45-117) Pro-B-Type Natriuretic Peptide 4711 pg/ml (0-1800) Total Protein 7.4 gm/dl (6.4-8.2) Albumin 3.3 gm/dl (3.4-5.0) Globulin 4.1 gm/dl (2.5-4.0) Albumin/Globulin Ratio 0.8 (0.9-2) Laboratory results per my review. Medications Administered Medications (Trade) Dose Ordered Sig/Isabella Route Start Time Stop Time Status Last Admin Dose Admin Furosemide 80 mg/ Syringe 8 ml @ 4 mls/min ONE ONCE IV 03/13/18 03:00 03/13/18 03:01 DC 03/13/18 03:23 4 MLS/MIN Procedure Furosemide 80 mg/Syringe 8 ml @ 4 mls/min ECG Per My Interpretation Indication: SOB/dyspnea Rate (beats per minute): 76 Rhythm: atrial fibrillation Findings: no acute ischemic change, no ectopy, other (No ST segment changes) ED Course 0143: Past medical records reviewed. The patient was evaluated in room B6. A complete history and physical exam was performed. An IV lock was initiated and labs are drawn as above. A 12-lead EKG was obtained as described above. A portable chest x-ray was performed. 0300: Furosemide 80 mg/Syringe 8 ml @ 4 mls/min IV 0344: I reevaluated the patient. He received IV Lasix and is peeing. He states he feels slightly better. 0354: Upon reevaluation, I discussed findings and results with him. He verbalized agreement of the treatment plan. [facility] The patient will be evaluated for further management and care. Medical Decision The patient is a 77 year old male who presents to the ED with waxing and waning SOB. Differential diagnosis includes CHF, COPD exacerbation, and pneumonia. Lab results show no leukocytosis, stable H&H, troponin = 0.027, BNP = 4711, BUN = 26, and creatinine = 1.5. The patient has a history of CHF and presents to the emergency department with significant fluid overload. O2 saturations without oxygen were in the mid 80s. The patient is currently taking 60 mg of furosemide twice a day at home. He was given 80 mg IV here in the emergency department. He did begin to diurese. Troponin was 0.027. Chest x-ray showed significant CHF with a left-sided pleural effusion. [facility] for further management. Medication Reconcilliation Current Medication List: was personally reviewed by me Blood Pressure Screening Patient's blood pressure: Elevated blood pressure Referred to hospitalist. Consults Time Called: [phone] Consulting Physician: Dr. Coon - [facility] Returned Call: [phone] Discussed the patient's case. The patient will be evaluated for further management. Impression Primary Impression: CHF (congestive heart failure) Scribe Attestation The scribe's documentation has been prepared under my direction and personally reviewed by me in its entirety. I confirm that the note above accurately reflects all work, treatment, procedures, and medical decision making performed by me. Departure Information Dispostion Being Evaluated By Hospitalist Referrals Errol Julio M.D. (PCP) Forms HOME CARE DOCUMENTATION FORM, IMPORTANT VISIT INFORMATION Patient Instructions [facility] Problem Qualifiers Primary Impression: CHF (congestive heart failure) Heart failure type: unspecified Heart failure chronicity: acute on chronic Qualified Codes: I50.9 - Heart failure, unspecified
[2018-03-13 02:07] LABS: BASO % 0.2 %; BASO ABS # 0.02 K/uL (0-0.2); EOS % 3.1 %; EOS ABS # 0.26 K/uL (0-0.5); HEMATOCRIT 46.8 % (42-52); HEMOGLOBIN 14.9 g/dL (14.0-18.0); IG# 0.11 K/uL (0.00-0.02); LYMPH % 10.9 %; LYMPH ABS # 0.92 K/uL (1.2-3.4); MEAN CELL VOLUME 95.5 fL (80-100); MEAN CORPUSCULAR HEMOGLOBIN 30.4 pg (25-34); MEAN CORPUSCULAR HGB CONC 31.8 g/dl (32-36); MEAN PLATELET VOLUME 10.6 fL (7.4-10.4); MONO % 9.4 %; MONO ABS # 0.79 K/uL (0.11-0.59); NEUT % 75.1 %; NEUT ABS # 6.32 K/uL (1.4-6.5); PLATELET COUNT 195 K/uL (130-400); RED CELL DISTRIBUTION WIDTH CV 14.4 % (11.5-14.5); RED CELL DISTRIBUTION WIDTH SD 50.2 fL (36.4-46.3); WHITE BLOOD COUNT 8.42 K/uL (4.8-10.8)
[2018-03-13 02:30] LABS: ALBUMIN 3.3 gm/dl (3.4-5.0); CALCIUM 8.8 mg/dl (8.5-10.1); CREATININE 1.59 mg/dl (0.60-1.40); POTASSIUM 3.9 mmol/L (3.5-5.1); TOTAL PROTEIN 7.4 gm/dl (6.4-8.2)
[2018-03-13] MEDS ORDERED: FUROSEMIDE INJ 80 MG in SYRINGE 0 ML IV ONE (03:00)
--- NOTE | 2018-03-13 04:11 | History and Physical ---
History & Physical Date & Time of Service: Mar 13, 2018 at 04:11 Chief Complaint: SOB Primary Care Physician: Errol Julio M.D. History of Present Illness Source: patient, family Patient is a pleasant 77yo male with history of atrial fibrillation on Pradaxa for anticoagulation, diastolic CHF, DM, CKD presenting with 2-3 days of progressive shortness of breath, orthopnea, AGUILAR, bilateral LE edema L > R, cough productive for white sputum and a 3-4 pound weight gain. Patient took and Ativan this evening with no improvement in symptoms. Symptoms acutely worsened tonight which prompted him to come to the ER. He reports compliance with his medications to include Lasix 80mg po BID. Reports overall compliance with a low salt diet, however, ate a bag of delicious Bugles last night and feels that this may be the reason he is retaining water. He denies chest pain, palpitations. He has some LLQ abdominal pain and has had diarrhea all day today. No additional complaints at this time. Patient hypertensive in the ER ER Course: Lasix 80mg IV Past Medical/Surgical History Medical Problems: Medical Problems: 1. Idiopathic cardiomyopathy -- 25% -- 2011 -- resolved. 2. Normal left ventricular ejection fraction - 50%-55% -- September 2016. 3. Normal coronary arteries -- 2011. 4. Chronic diastolic CHF. 5. Hypertension. 6. Moderate left ventricular hypertrophy. 7. Mild aortic insufficiency. 8. Permanent atrial fibrillation on anticoagulation 9. Chronic type B aortic dissection. 10. Diabetes mellitus - [id number]=4.1 on 09/24/17 11. Chronic renal failure - baseline Cr 1.5 - 1.8 12. CML -- 2005 now in remission 13. Hypothyroidism. 14. Gout 15. Hearing loss 16. BPH 17. COPD Surgical Problems: S/P cholecystectomy Type B aortic repair Right knee replacement Hemorrhoids Family History Diabetes mellitus FH: cancer FH: gallbladder disease FH: heart disease FH: hypertension Hypertension Stroke Social History Smoking Status: Never Smoker Smokeless Tobacco Use: No Alcohol Use: none Drug Use: none Marital Status: Housing status: lives with family, lives with significant other Occupational Status: retired Immunizations History of Influenza Vaccine: Yes Influenza Vaccine Date: Jun 03, 2011 History of Tetanus Vaccine?: Yes History of Pneumococcal: Yes Pneumococcal Date: Oct 01, 2010 History of Hepatitis B Vaccine: No Allergies Coded Allergies: Adhesives (Verified Allergy, Unknown, RASH, 03/13/18) Latex1 -Allergic Contact Dermititis (Verified Adverse Reaction, Intermediate, BLISTERS SKIN, 03/13/18) Morphine (Verified Adverse Reaction, Intermediate, DELUSIONS, "LOSES TIME ", 03/13/18) STATED "HE SIAD HE WAS ABHISHEK THE EIGHT FOR THREE DAYS!" Home Medications Scheduled Allopurinol (Allopurinol), 300 MG PO QAM Cholecalciferol (Vitamin D3), 2,000 UNITS PO DAILY Dabigatran Etexilate Mesylate (Pradaxa), 75 MG PO BID Furosemide (Lasix), 80 MG PO QAM Furosemide (Furosemide), 40 MG PO AFTERNOON Hydralazine Hcl (Apresoline), 50 MG PO TID Insulin Aspart 70/30 (Novolog Mix 70/30), 10 UNITS SQ BID Isosorbide Mononitrate Ext Rel (Imdur Ext Rel), 120 MG PO QAM Levothyroxine Sodium (Levothyroxine Sodium), 75 MCG PO Q2D Levothyroxine Sodium (Levothyroxine Sodium), 50 MCG PO Q2D Lisinopril (Zestril), 2.5 MG PO DAILY Metoprolol Succinate (Toprol Xl), 200 MG PO QAM Potassium Ext Rel (Klor-Con), 40 MEQ PO BID Scheduled PRN Acetaminophen (Tylenol), 1,000 MG PO UD PRN for Pain Ipratropium-Albuterol (Combivent Respimat), 2 PUFFS INH Q6H PRN for SOB/Wheezing Polyethylene Glycol 3350 (Miralax), 17 GM PO DAILY PRN for Constipation Review of Systems Constitutional: No fever, No chills, No sweats, No weakness, No fatigue Eyes: No worsening of vision, No diplopia ENT: No hearing loss, No sore throat, No trouble swallowing Respiratory: + cough, + sputum, + shortness of breath, + dyspnea on exertion, No wheezing, No hemoptysis Cardiovascular: + orthopnea, + edema, No chest pain, No palpitations Abdomen: + pain, + diarrhea, No nausea, No vomiting, No constipation, No GI bleeding Musculoskeletal: No joint pain, No muscle pain Genitourinary - Male: No hematuria, No dysuria Neurologic: No weakness Endocrine: No fatigue Hematologic / Lymphatic: No abnormal bleeding/bruising Integumentary: No rash Physical Exam Vital Signs Date Time Temp Pulse Resp B/P (MAP) Pulse Ox O2 Delivery O2 Flow Rate FiO2 03/13/18 03:25 71 24 191/94 95 Nasal Cannula 3.0 03/13/18 01:56 76 03/13/18 01:45 96 Nasal Cannula 3.0 03/13/18 01:43 96 Nasal Cannula 3.0 03/13/18 01:43 88 Room Air 03/13/18 01:28 36.4 77 24 183/72 92 Room Air General: patient resting comfortably in bed, NAD, speaking in complete sentences, AA&O x 4 Skin: warm, dry, intact, no rashes or lesions HEENT: NC/AT, PERRL, EOMI, anicteric sclera, mild bilateral conjunctival injection, nares patent, moist mucus membranes, no oropharyngeal lesions, neck supple, trachea midline, no thyromegaly, no LAD, no JVD Heart: +S1/S2, irregularly irregular, no m/r/g Lungs: equal air entry bilaterally, diminished breath sounds in the bases, no rales/rhonchi/wheezes Abdomen: soft, NT/ND, no masses/organomegaly/ascites Extremities: warm, well perfused, 2+ pitting edema of bilateral LE, 1+ pulses Neuro: grossly intact Diagnostics Laboratory Results Results Past 24 Hours Test 03/13/18 00:00 Range/Units White Blood Count 8.42 4.8-10.8 K/uL Red Blood Count 4.90 4.7-6.1 M/uL Hemoglobin 14.9 14.0-18.0 g/dL Hematocrit 46.8 42-52 % Mean Corpuscular Volume 95.5 80-100 fL Mean Corpuscular Hemoglobin 30.4 25-34 pg Mean Corpuscular Hemoglobin Concent 31.8 32-36 g/dl Platelet Count 195 130-400 K/uL Mean Platelet Volume 10.6 7.4-10.4 fL Neutrophils (%) (Auto) 75.1 % Lymphocytes (%) (Auto) 10.9 % Monocytes (%) (Auto) 9.4 % Eosinophils (%) (Auto) 3.1 % Basophils (%) (Auto) 0.2 % Neutrophils # (Auto) 6.32 1.4-6.5 K/uL Lymphocytes # (Auto) 0.92 1.2-3.4 K/uL Monocytes # (Auto) 0.79 0.11-0.59 K/uL Eosinophils # (Auto) 0.26 0-0.5 K/uL Basophils # (Auto) 0.02 0-0.2 K/uL RDW Standard Deviation 50.2 36.4-46.3 fL RDW Coefficient of Variation 14.4 11.5-14.5 % Immature Granulocyte % (Auto) 1.3 % Immature Granulocyte # (Auto) 0.11 0.00-0.02 K/uL Sodium Level 141 136-145 mmol/L Potassium Level 3.9 3.5-5.1 mmol/L Chloride Level 105 98-107 mmol/L Carbon Dioxide Level 27 21-32 mmol/L Anion Gap 9.0 3-11 mmol/L Blood Urea Nitrogen 26 7-18 mg/dl Creatinine 1.59 0.60-1.40 mg/dl Est Creatinine Clear Calc Drug Dose 51.0 ml/min Estimated GFR () 48.2 Estimated GFR (Non- 41.6 BUN/Creatinine Ratio 16.6 10-20 Random Glucose 86 70-99 mg/dl Calcium Level 8.8 8.5-10.1 mg/dl Total Bilirubin 0.9 0.2-1 mg/dl Aspartate Amino Transf (AST/SGOT) 26 15-37 U/L Alanine Aminotransferase (ALT/SGPT) 27 12-78 U/L Alkaline Phosphatase 126 45-117 U/L Troponin I 0.027 0-0.045 ng/ml Pro-B-Type Natriuretic Peptide 4711 0-1800 pg/ml Total Protein 7.4 6.4-8.2 gm/dl Albumin 3.3 3.4-5.0 gm/dl Globulin 4.1 2.5-4.0 gm/dl Albumin/Globulin Ratio 0.8 0.9-2 Diagnostic Radiology CXR - by my interpretation the image shows trachea midline, prominent aortic knob with calcifications, cardiomegaly, blunting of costophrenic angles, increased vascular congestion EKG The study shows atrial fibrillation at 76bpm, normal axis, incomplete RBB, no evidence of acute ischemia. No significant change from prior study Impression Assessment and Plan 77yo male presenting with SOB 1. SOB - suspected acute exacerbation of CHF secondary to increased salt intake. Patient with AGUILAR/edema/orthopnea/weight gain. Adequate oxygenation on 2L NC presently. History of idiopathic cardiomyopathy with reduced EF now improved -Admit to telemetry -Monitor strict I/O's, daily weights -Check TSH, UA -Check echocardiogram - last in 2016 -Lasix 80mg IV q 12 hours -Check PRP BID to monitor electrolytes and renal function -Continue Toprol XL 200mg po daily -Continue Hydralazine 50mg po TID and Isosorbide 2. Hypertension -patient hypertensive at present, 191/99. ?Pulmonary edema in setting of hypertension contributing to symptoms -Continue Toprol, Hydralazine and Isosorbide as above -Hydralazine 10mg IV q 4 hours PRN SBP>180mmHg -Continue to monitor 3. Atrial fibrillation - rate controlled, on Pradaxa for anticoagulation -Continue Toprol XL -Continue Pradaxa 4. Diabetes - blood sugar presently well controlled -Continue home dose of insulin 70/30 - 20u BID -Continue to monitor 5. Hypothyroidism - TSH=3.6 on 01/30/18 -Continue Synthroid at home dosage 6. CKD - BUN and Cr are near baseline -Monitor I/O, electrolytes, BUN and Cr -BID BMP -Avoid nephrotoxic agents -Renal dosing where appropriate 7. COPD - no wheezing, no evidence of exacerbation at this time -Continue Combivent 8. CML in remission -noted 9. Gout - stable -Continue Allopurinol 9. F/E/N - diuresis with Lasix 80mg IV BID, goal negative 1-1.5L over 24 hours. Monitor electrolytes BID. Low Na diabetic diet with 1500mL/day fluid restriction 10. Ppx - Patient anticoagulated on Pradaxa 11. Code -full per discussion with patient 12. Dispo - admit to telemetry Resuscitation Status Full VTE Prophylaxis Will order VTE Prophylaxis: No Reason for no VTE drug order: Treatment not indicated Reason no Mechanical VTE Order: Treatment not indicated
[2018-03-13] MEDS ORDERED: ACETAMINOPHEN 325 MG TAB PO PRN (04:15)
[2018-03-13] MEDS ORDERED: ONDANSETRON INJ 2 MG/ML 2 ML VIAL IV PRN (04:15)
[2018-03-13] MEDS ORDERED: IPRATROPIUM BROMIDE/ALBUTEROL respimat INH INH PRN (04:30)
[2018-03-13] MEDS ORDERED: HydrALAZINE HCL 20 MG/ML VIAL IV. PRN (04:30)
[2018-03-13] MEDS ORDERED: DEXTROSE 50% 50 ML SYR IV PRN (05:00)
[2018-03-13] MEDS ORDERED: GLUCAGON FOR INJ 1 MG VIAL SQ PRN (05:00)
[2018-03-13] MEDS ORDERED: CARBOHYDRATES FOR HYPOGLYCEMIA PO PRN (05:00)
[2018-03-13] MEDS ORDERED: GLUCOSE 10 TABS/TUBE PO PRN (05:00)
[2018-03-13] MEDS ORDERED: GLUCOSE 40% GEL 15 GM TUBE PO PRN (05:00)
[2018-03-13 05:25] LABS: CALCIUM 8.7 mg/dl (8.5-10.1); CREATININE 1.58 mg/dl (0.60-1.40); PHOSPHORUS 3.7 mg/dl (2.5-4.9)
[2018-03-13] MEDS ORDERED: LEVOTHYROXINE 50 MCG TAB PO SCH (06:00)
--- NOTE | 2018-03-13 07:50 | DIAGNOSTIC IMAGING REPORT ---
CHEST ONE VIEW PORTABLE CLINICAL HISTORY: Shortness of breath. COMPARISON STUDY: Chest radiograph January 30, [address] December 27, 2017. FINDINGS: Cardiomegaly is unchanged. Dilatation of the aortic arch is unchanged. Mild bibasilar opacities are noted. The possible trace left pleural effusion. Interstitial thickening is unchanged and is likely chronic. IMPRESSION: 1. Increase in right basilar opacity which may reflect atelectasis or consolidation. Persistent hazy left basilar opacity which is unchanged. 2. No change in interstitial thickening which is likely chronic. 3. Stable cardiomegaly. Electronically signed by: Raulito Snow M.D. 03/13/2018 7:48 AM Dictated Date/Time: 03/13/2018 7:47 AM
[2018-03-13] MEDS: ISOSORBIDE MONONITRATE 60 MG TABCR PO SCH (08:38)
[2018-03-13] MEDS: ALLOPURINOL 300 MG TAB PO SCH (08:38)
[2018-03-13] MEDS: METOPROLOL SUCC 50MG EXT REL TAB PO SCH (08:38)
[2018-03-13] MEDS: CHOLECALCIFEROL 1000 INTER.UNIT TAB PO SCH (08:39)
[2018-03-13] MEDS: FUROSEMIDE INJ 80 MG in SYRINGE 0 ML IV SCH ×2 (08:39→17:20)
[2018-03-13] MEDS ORDERED: INSULIN 70% ASPART PROTAMINE/30% ASPART SQ SCH (09:00)
[2018-03-13] MEDS: DABIGATRAN ELEXILATE 75 MG CAP PO SCH ×2 (09:38→20:07)
[2018-03-13] MEDS: INSULIN ASPART 100 UNITS/ML 3 ML PEN SC SCH ×4 (09:41→20:37)
[2018-03-13] MEDS: INSULIN HUMAN NPH SC SCH ×2 (09:42→17:19)
--- NOTE | 2018-03-13 21:50 | Progress Note ---
Progress Note Date of Service Mar 13, 2018. Progress Note Patient seen and examined today. Patient reports improvement in his breathing. Informed patient that we will cut back on his diuretics and return to his normal dose at home tomorrow. Lungs were clear today. Will monitor BMP for rise of creatinine due to high use of Lasix on first day 80 mg IV BID.
[2018-03-14 03:48] VITALS: BP 136/75; PULSE 67; TEMP 36.6; O2SAT 94
[2018-03-14 04:40] LABS: BASO % 0.4 %; BASO ABS # 0.03 K/uL (0-0.2); EOS % 3.3 %; EOS ABS # 0.23 K/uL (0-0.5); HEMATOCRIT 43.1 % (42-52); HEMOGLOBIN 13.7 g/dL (14.0-18.0); IG# 0.06 K/uL (0.00-0.02); LYMPH % 13.8 %; LYMPH ABS # 0.96 K/uL (1.2-3.4); MEAN CELL VOLUME 95.4 fL (80-100); MEAN CORPUSCULAR HEMOGLOBIN 30.3 pg (25-34); MEAN CORPUSCULAR HGB CONC 31.8 g/dl (32-36); MEAN PLATELET VOLUME 10.7 fL (7.4-10.4); MONO % 13.8 %; MONO ABS # 0.96 K/uL (0.11-0.59); NEUT % 67.8 %; PLATELET COUNT 159 K/uL (130-400); RED CELL DISTRIBUTION WIDTH CV 14.4 % (11.5-14.5); RED CELL DISTRIBUTION WIDTH SD 49.8 fL (36.4-46.3); WHITE BLOOD COUNT 6.94 K/uL (4.8-10.8)
[2018-03-14 04:59] LABS: CALCIUM 8.3 mg/dl (8.5-10.1); CREATININE 1.78 mg/dl (0.60-1.40); POTASSIUM 3.2 mmol/L (3.5-5.1)
[2018-03-14] MEDS ORDERED: LEVOTHYROXINE 75 MCG TAB PO SCH (06:00)
[2018-03-14] MEDS: METOPROLOL SUCC 50MG EXT REL TAB PO SCH (07:33)
[2018-03-14] MEDS: CHOLECALCIFEROL 1000 INTER.UNIT TAB PO SCH (07:34)
[2018-03-14] MEDS: DABIGATRAN ELEXILATE 75 MG CAP PO SCH (07:34)
[2018-03-14] MEDS: ALLOPURINOL 300 MG TAB PO SCH (07:34)
[2018-03-14] MEDS: ISOSORBIDE MONONITRATE 60 MG TABCR PO SCH (07:35)
[2018-03-14 07:41] VITALS: BP 190/73; PULSE 59; TEMP 36.6; O2SAT 95
[2018-03-14] MEDS: INSULIN ASPART 100 UNITS/ML 3 ML PEN SC SCH ×2 (07:56→11:59)
[2018-03-14] MEDS: INSULIN HUMAN NPH SC SCH (08:01)
[2018-03-14] MEDS ORDERED: FUROSEMIDE 80 MG TAB PO SCH (09:00)
[2018-03-14] MEDS ORDERED: POTASSIUM CHLORIDE 20 MEQ TABCR PO SCH (09:00)
[2018-03-14 12:11] VITALS: BP 150/79; PULSE 64; TEMP 36.7; O2SAT 92
--- NOTE | 2018-03-14 12:26 | Clinical Documentation Query ---
CLINICAL DOCUMENTATION QUERY 77 year old male with hx of chronic diastolic CHF who presents to the Emergency Room with complaints of waxing and waning SOB. Query #1/2 In your clinical opinion is this patient being managed for: ( ) Acute on chronic diastolic (preserved EF) CHF ( ) Not Agree ( ) Other explanation of clinical findings (No explanation is considered a No Response) ( ) Unable to determine ( ) Need to Discuss (Phone CDS or qliq) (No discussion is considered a No Response) The medical record reflects the following clinical findings, treatment, and risk factors. Clinical Indicators: CHF exacerbation per H&P. Echo from 10/22/16 showed normal EF, moderated aortic insufficiency, and LV hypertrophy. Treatment: IV Lasix, telemetry, I/O's, daily weights Risk Factors: Age, HTN, CKD, increased salt intake. Query #2/2 H&P states patient as having CKD without staging. Documenting the stage of CKD will improve data integrity and will help clarify vague terms such as "renal insufficiency" or "chronic renal failure." In your clinical opinion is this patient being managed for: ( ) Chronic kidney disease, stage 3 (moderate) ( ) Not Agree ( ) Other explanation of clinical findings (No explanation is considered a No Response) ( ) Unable to determine ( ) Need to Discuss (Phone CDS or qliq) (No discussion is considered a No Response) The medical record reflects the following clinical findings, treatment, and risk factors. Clinical Indicators: BUN 26, Creatinine 1.58, GFR 41.9. Treatment: daily PRP's, I/O's, daily weights Risk Factors: Age, HTN, home Lasix and ROSIBEL therapy Please clarify and document your clinical opinion in the progress notes and discharge summary. Terms such as "probable", "suspected", "likely", "questionable", "possible", or "still to be ruled out" are acceptable. IF IN AGREEMENT, YOU MUST DOCUMENT ABOVE DIAGNOSTIC STATEMENT IN DAILY PROGRESS NOTES AND DISCHARGE SUMMARY. This document is not part of the patient's record. David Lo - Can you forward this to Wilner Pinedo as he picked up this patient. Thank you! Khang Bell Thank You, Wally Aguilar RN [phone] & via [email or web address]
--- NOTE | 2018-03-14 12:26 | ECHOCARDIOGRAM REPORT ---
*NOTICE TO RECEIVING REPUBLICAN AGENCY This information is strictly Confidential and protected under [place] law. [place] law prohibits you from making any further disclosure of this information unless further disclosure is expressly permitted by the written consent of the person to whom it pertains or is authorized by law. A general authorization for the release of medical or other information is not sufficient for this purpose. Hospital accepts no responsibility if the information is made available to any other person, INCLUDING THE PATIENT. Interpretation Summary * Name: JAMEEL BARCENAS Study Date: 03/13/2018 01:06 PM BP: 178/96 mmHg * Patient Location: [facility] HR: 74 * : 1940 (M/d/yyyy) Gender: Male Height: 70 in * Age: 77 yrs Ethnicity: [place] Weight: 261 lb * Ordering Physician: Sondra Coon * Referring Physician: Self, Referred * Performed By: Shirley Nuno RDCS * * Reason For Study: CHF * BSA: 2.3 m2 * -- Conclusions -- * 1. Normal LV size. Borderline concentric LVH. * 2. Normal LV systolic function. LVEF 55-60 %. No regional wall motion abnormalities. * 3. Normal RV size, borderline reduced function. * 4. Mild aortic regurgitation. Aortic sclerosis without stenosis. * 5. Mildly dilated ascending aorta (4.1 cm). * 6. Diastolic dysfunction. * 7. Severe left atrial enlargement * 8. Compared with prior study on 10/22/2016: No significant change Procedure Details * A complete two-dimensional transthoracic echocardiogram was performed (2D, M-mode, Doppler and color flow Doppler). * A contrast injection of Definity was performed to improve assessment of LV function. * Contrast was injected into an intravenous site in the right arm. * One vial of Definity ultrasound contrast was diluted in normal saline to a total volume of 10 ml. A total of '1' ml of solution was administered during imaging. * Lot # [id number] of Definity utilized for procedure. * Expiration date FEB 10. * The attending nurse who injected the contrast agent was Galindo Katz RN. Left Ventricle * The left ventricle is grossly normal size. * There is borderline concentric left ventricular hypertrophy. * Ejection Fraction = 55-60%. * No regional wall motion abnormalities noted. Right Ventricle * The right ventricle is grossly normal size. * The right ventricular systolic function is borderline reduced. Atria * The left atrium is severely dilated. * The right atrium is moderately dilated. * No ASD detected; PFO is not assessed. Mitral Valve * The mitral valve is not well visualized. * There is trace mitral regurgitation. Aortic Valve * The aortic valve opens well. * Aortic valve sclerosis mild, without significant aortic valvular stenosis. * No hemodynamically significant valvular aortic stenosis. * Mild aortic regurgitation. Pulmonic Valve * The pulmonary valve is inadequately visualized, but the Doppler data is adequate for interpretation. * Pulmonic stenosis is absent. * There is no significant pulmonary regurgitation. Great Vessels * Mildly dilated ascending aorta. * Asc Ao 4.1 Left Ventricular Diastolic Function * Diastolic dysfunction MMode 2D Measurements and Calculations asc Aorta Diam 4.7 cm LVAd ap4 35.5 cm\S\2 LVLd ap4 8.7 cm EDV(MOD-sp4) 122.6 ml EDV(sp4-el) 123.8 ml LVAs ap4 17.4 cm\S\2 LVLs ap4 7.1 cm ESV(MOD-sp4) 37.7 ml ESV(sp4-el) 36.4 ml EF(MOD-sp4) 69.3 % EF(sp4-el) 70.6 % LVAd ap2 27.1 cm\S\2 LVLd ap2 8.4 cm EDV(MOD-sp2) 72.8 ml EDV(sp2-el) 74.2 ml LVAs ap2 12.7 cm\S\2 LVLs ap2 6.8 cm ESV(MOD-sp2) 20.4 ml ESV(sp2-el) 20.1 ml EF(MOD-sp2) 72.0 % EF(sp2-el) 72.9 % LVLd %diff -2.73 % EDV(MOD-bp) 94.9 ml LVLs %diff -3.44 % ESV(MOD-bp) 28.2 ml EF(MOD-bp) 70.3 % SV(MOD-sp4) 84.9 ml SI(MOD-sp4) 36.3 ml/m\S\2 SV(MOD-sp2) 52.5 ml SI(MOD-sp2) 22.4 ml/m\S\2 SV(MOD-bp) 66.7 ml SI(MOD-bp) 28.5 ml/m\S\2 SV(sp4-el) 87.4 ml SI(sp4-el) 37.4 ml/m\S\2 SV(sp2-el) 54.1 ml SI(sp2-el) 23.1 ml/m\S\2 Doppler Measurements and Calculations MV E max sangeetha 119.7 cm/sec MV dec time 0.25 sec Ao V2 max 155.2 cm/sec Ao max PG 9.6 mmHg Ao max PG (full) 7.0 mmHg AI max sangeetha 389.5 cm/sec AI max PG 60.7 mmHg AI dec slope 165.9 cm/sec\S\2 AI P1/2t 687.8 msec LV V1 max PG 2.6 mmHg LV V1 max 80.7 cm/sec PA V2 max 49.2 cm/sec PA max PG 0.97 mmHg PA acc slope 260.7 cm/sec\S\2 PA acc time 0.12 sec PA pr(Accel) 24.8 mmHg
[2018-03-14 14:27] VITALS: PULSE 65; O2SAT 94
[2018-03-14 14:41] VITALS: BP 150/79; PULSE 65; TEMP 36.7; O2SAT 94
[2018-03-14] MEDS ORDERED: FURO80TA63 PO (14:41)
--- NOTE | 2018-03-14 14:45 | Discharge Instructions ---
Discharge Instructions Date of Service Mar 14, 2018. Admission Reason for Admission: Chf Exacerbation,Shortness Of Breath Discharge Discharge Diagnosis / Problem: acute on chroni diastolic heart failue, dyspnea Discharge Goals Goal(s): Improve function, Improve disease control Activity Recommendations Activity Limitations: resume your previous activity . Instructions / Follow-Up Instructions / Follow-Up Medications: - LASIX: make sure you are taking 80mg twice a day to prevent volume overload Acute on chronic diastolic heart failure, resolved diuresed 2 liters since admission, breathing improved, lungs clear, no edema please continue to be compliant with medications need to follow low sodium (less than 2gm daily) diet, need to be aware of how much sodium is in food need to follow fluid restriction, 1800mL a day need to weigh yourself every morning, if at any time weight is up by 2-3 pounds from baseline then call Dr. Julio, may need extra Lasix that day FOLLOW UP - call for appointment with Dr. Julio in 5-7 days for hospital follow up Call your Primary Care doctor if any of the following symptoms or problems start or get worse: * Shortness of breath or difficulty breathing * Wake up at night short of breath * Chest pain * Cough * Swelling of your hands, feet, or legs * More fatigued or tired with your normal activity * Palpitations - sudden fast heart beats WEIGHT * Weigh yourself every morning after using the bathroom. * Use the same scale. * Wear the same amount of clothing. * Write your weight down on a chart. * Call your Primary Care doctor if you gain more than 2-3 pounds in 1-2 days. MEDICATIONS * Use this discharge instruction sheet for medication instructions. * Take your medications at the time your doctor ordered. * Do not skip a dose of your medicines. * If you miss a dose of medicine, take it as soon as possible, but DO NOT DOUBLE A DOSE. * Read your medicine information when you get home. * Know all of the side effects of your medicine. If in doubt, ask your pharmacist * Call your Primary Care doctor's office if you have any side effects. * Be sure all of your doctors know what medicine and herbs you take (including cold, flu, and herbal medicine). Take the following with you to your follow-up doctor appointments: * Weight Chart * Medication List * List of questions Do not drink excessive alcohol, beer or wine. Current Hospital Diet Patient's current hospital diet: Low Sodium Diet (2gm Na), Diabetes Type 2 Diet Discharge Diet Recommended Diet: Low Sodium Diet (2gm Na), Diabetes Type 2 Diet Fluid Restriction: 1800 ml (7 cups) Pending Studies Studies pending at discharge: no Medical Emergencies . Who to Call and When: Call 911 or go to the Emergency Room if: * If at any time you feel your situation is an emergency * You have tightness or pain in your chest that does not go away with rest or Nitroglycerin * You are very short of breath even with rest . Non-Emergent Contact Non-Emergency issues call your: Primary Care Provider Call Non-Emergent contact if: you have any medication questions . . "Provider Documentation" section prepared by Saturnino Pinedo. . [place] Drug Monitoring Program Search Results: no issues identified
[2018-03-14] MEDS ORDERED: FUROSEMIDE 40 MG TAB PO SCH (17:00)
--- NOTE | 2018-03-15 09:24 | Discharge Summary ---
Discharge Summary Date of Service Mar 14, 2018. Discharge Summary Admission Date: Mar 13, 2018 at 04:20 Discharge Date: Mar 14, 2018 Discharge Disposition: Home Principal Diagnosis: acute on chronic diastolic heart failure Problems/Secondary Diagnoses: Dyspnea CKD stage III HTN Chronic atrial fibrillation DM type II Hypothyroidism Immunizations: Have You Had Influenza Vaccine: Yes Influenza Vaccine Date: Jun 03, 2011 History of Tetanus Vaccine?: Yes History of Pneumococcal: Yes Pneumococcal Date: Oct 01, 2010 History of Hepatitis B Vaccine: No Procedures: none Consultations: none Medication Reconciliation Changed Medications: Furosemide (Lasix) 80 Mg Tab 80 MG PO BID17, #60 TAB 3 Refills (Changed from: QAM; Refills: ) Continued Medications: Acetaminophen (Tylenol) 500 Mg Tab 1000 MG PO UD PRN for Pain, TAB Allopurinol (Allopurinol) 300 Mg Tab 300 MG PO QAM Cholecalciferol (Vitamin D3) 2,000 Unit Cap 2000 UNITS PO DAILY TAKE WITH THE MAIN MEAL OF THE DAY. Dabigatran Etexilate Mesylate (Pradaxa) 75 Mg Cap 75 MG PO BID, CAP Hydralazine Hcl (Apresoline) 50 Mg Tab 50 MG PO TID, TAB Insulin Aspart 70/30 (Novolog Mix 70/30) Susp 10 UNITS SQ BID, BTL Ipratropium-Albuterol (Combivent Respimat) 1 Aer Aer 2 PUFFS INH Q6H PRN for SOB/Wheezing, INH Isosorbide Mononitrate Ext Rel (Imdur Ext Rel) 120 Mg Ertab 120 MG PO QAM Levothyroxine Sodium (Levothyroxine Sodium) 75 Mcg Tab 75 MCG PO Q2D Levothyroxine Sodium (Levothyroxine Sodium) 50 Mcg Tab 50 MCG PO Q2D Lisinopril (Zestril) 2.5 Mg Tab 2.5 MG PO DAILY Metoprolol Succinate (Toprol Xl) 200 Mg Tab 200 MG PO QAM Polyethylene Glycol 3350 (Miralax) 1 Pow Pow 17 GM PO DAILY PRN for Constipation, #255 GM Potassium Ext Rel (Klor-Con) 20 Meq Tabcr 40 MEQ PO BID, TAB Discontinued Medications: Furosemide (Furosemide) 40 Mg Tab 40 MG PO AFTERNOON Discharge Exam Patient breathing much better, diuresed 2 liters since admission. Reviewed labs , Cr up slightly at 1.78 and K is normal. Patient eating and drinking well. Energy level normal. Asked PT to evaluate, patient ambulated to the end of the hallway and back, said he felt good, like he was at baseline. Discussed importance of daily weights at home and following fluid restriction. Instructed to call Dr. Julio if at any time his weight was up by 2-3 pounds. Review of Systems: Constitutional: No fever, No chills, No sweats, No weight loss, No weakness , No fatigue, No problem reported Eyes: No worsening of vision, No eye pain, No redness, No discharge, No diplopia, No problem reported ENT: No hearing loss, No unusual epistaxis, No nasal symptoms, No sore throat, No tinnitus, No dental problems, No trouble swallowing, No problem reported Respiratory: No cough, No sputum, No wheezing, No shortness of breath, No dyspnea on exertion, No dyspnea at rest, No hemoptysis, No problem reported Cardiovascular: No chest pain, No orthopnea, No PND, No edema, No claudication, No palpitations, No problem reported Abdomen: No pain, No nausea, No vomiting, No diarrhea, No constipation, No GI bleeding, No problem reported Musculoskeletal: No joint pain, No muscle pain, No swelling, No calf pain, No problem reported Genitourinary - Male: No hematuria, No dysuria, No urinary frequency, No urinary urgency Neurologic: No memory loss, No paralysis, No weakness, No numbness/tingling , No vertigo, No balance problems, No problem reported Psychiatric: No depression symptoms, No anhedonism, No anxiety, No insomnia , No substance abuse, No problem reported Endocrine: No fatigue, No excessive thirst, No excessive urination, No problem reported Hematologic / Lymphatic: No abnormal bleeding/bruising, No clotting problems , No swollen lymph nodes, No night sweats, No problem reported Integumentary: No rash, No itch, No new/changing skin lesions, No color change, No bleeding, No problem reported Physical Exam: General Appearance: no apparent distress, + obese Eyes: normal inspection, EOMI, sclerae normal ENT: normal ENT inspection, hearing grossly normal, pharynx normal Neck: supple, no adenopathy, no JVD, trachea midline Respiratory/Chest: chest non-tender, lungs clear, normal breath sounds, no respiratory distress, no accessory muscle use Cardiovascular: regular rate, rhythm, no edema, no gallop, no JVD, no murmur , normal peripheral pulses Abdomen / GI: normal bowel sounds, non tender, soft, no organomegaly Extremities: normal inspection, no calf tenderness, normal capillary refill , no pedal edema, normal range of motion, pelvis stable 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 Acute on chronic diastolic heart failure, acute hypoxic respiratory failure diuresed well with Lasix 80mg IV given in the ED, negative 2 liters for admission breathing markedly improved, stable on room air, no distress able to ambulate to end of [place] and back without any dyspnea or desaturations Cr up slightly at 1.7 with the diuresis, electrolytes stable resumed Lasix 80mg BID dosing echocardiogram shows preserved EF with diastolic dysfunction d/c to home, specific instructions given on salt and fluid restriction knows to weigh himself daily and call Dr. Julio if weight goes up by 2-3 pounds continue Toprol 100mg daily 2. Hypertension -patient hypertensive on admission at 191/99. BP improved prior to discharge on home regimen Continue Toprol, Hydralazine and Isosorbide at home doses 3. Atrial fibrillation - rate controlled, on Pradaxa for anticoagulation -Continue Toprol XL -Continue Pradaxa 4. Diabetes - blood sugar presently well controlled -Continue home dose of insulin 70/30 - 20u BID -no hypoglycemic episodes 5. Hypothyroidism - TSH=3.6 on 01/30/18 -Continue Synthroid at home dosage 6. CKD - BUN and Cr are near baseline Cr up slightly to 1.78 on increased dose of Lasix but that is expected resume Lasix 80mg BID at home, follow up with PCP electrolytes stable 7. COPD - no wheezing, no evidence of exacerbation at this time -Continue Combivent 8. CML in remission -noted 9. Gout - stable -Continue Allopurinol Total Time Spent: Greater than 30 minutes This includes examination of the patient, discharge planning, medication reconciliation, and communication with other providers. Discharge Instructions Please refer to the electronic Patient Visit Report (Discharge Instructions) for additional information. Follow-Up Dr. Julio in one week Additional Copies To Errol Julio M.D.
== END 2018-03-14 15:47 | disposition home or self-care (01) | DRG 291 ==
LOC: C.EDB 01:18 → C.2T 04:20 → ENRESERV 04:30
PROVIDERS: ADMIT Internal Medicine; ATTEND Internal Medicine
DX: I13.0 Hypertensive heart and chronic kidney disease with heart failure and stage 1 through stage 4 chronic kidney disease, or unspecified chronic kidney disease (principal); I50.33 Acute on chronic diastolic (congestive) heart failure; J96.01 Acute respiratory failure with hypoxia; C92.11 Chronic myeloid leukemia, BCR/ABL-positive, in remission; E11.22 Type 2 diabetes mellitus with diabetic chronic kidney disease; N18.3 Chronic kidney disease, stage 3 (moderate); I48.2 Chronic atrial fibrillation; E03.9 Hypothyroidism, unspecified; J44.9 Chronic obstructive pulmonary disease, unspecified; M10.9 Gout, unspecified; Z79.01 Long term (current) use of anticoagulants; Z79.4 Long term (current) use of insulin; Z79.899 Other long term (current) drug therapy; Z91.040 Latex allergy status; Z91.11 Patient's noncompliance with dietary regimen; Z88.5 Allergy status to narcotic agent

== ENCOUNTER 2018-09-20 04:34 | Observation (INO) ==
--- NOTE | 2018-09-20 04:55 | Emergency Department Note ---
ED Provider Note Name: Bryn Olvera Age: 77 M Arrives Via: POV Informant: Pt, CC: Flank pain & decreased UOP HPI: 77 male arrives for evaluation of left flank pain. Notes 1 week on and off left flank pain. Worse with movement, better with rest. Tylenol doesn't help. No trauma nor injury. No radiation. Notes he has had minimal urine output last few days. He has also had loose frequent stools. History of renal failure and congestive heart failure. No sick contacts. No recent abx. Denies cp, sob, leg swelling, headache, neck pain, syncope, rashes, urinary burning nor other symptoms. No history of flank pain like this before. States he has been drinking plenty of fluids. ROS: See above HPI for pertinent positives & negatives. A total of 10 systems reviewed and were otherwise negative. Past Medical History: CHF, Afib, Renal insufficiency, Leukemia, Pancreatitis, DM Past Surgical History: Cholectytectomy Family History: Non contributory Social History: Lives with at home, non smoker, no etoh Home Medications: tylenol, allopurinol, dabigatran, hydralazine, insulin, isosorbide, levothyroxine, lisinopril, metoprolol, klor con, torsemide Allergies Adhesive, lasix, morphine Physical: Vitals: 146/86, P 75, R 18, T 36.4, O2 96% Exam: GENERAL: Patient is chronically unwel appearing and in mild distress. EYES: No scleral icterus, unremarkable pupils. ENT: Mucous membranes dry, no nasal congestion. NECK: No masses appreciated, no meningismus, trachea is midline. RESPIRATORY: No dyspnea. Clear to auscultation and equal bilaterally. No wheeze , no rhonchi. CARDIOVASCULAR: Regular rate and rhythm. No murmurs, rubs, gallops appreciated. GASTROINTESTINAL: Abdomen soft, non-tender, no peritonitis. Bowel sounds positive. No masses appreciated. BACK: No midline tenderness, no CVA tenderness EXTREMITIES: Normal motion all extremities, no cyanosis, mild bilateral tibial edema. NEUROLOGIC: Alert and oriented, no acute motor or sensory deficits, no focal weakness, cranial nerves grossly intact. SKIN: No rash, no jaundice, no diaphoresis. ED Course: Prior Medical Record, Triage/Nursing Notes, Medications, Allergies reviewed by Me Vital Signs: reviewed and remarkable for mild HTN Labs: Reviewed and remarkable for normal cbc, bmp, lft, lipase, ua. He has stable cr Interventions: Saline Lock, Fentanyl 50mcg IV x 3, NSS Bolus 500ml IV Imaging: [facility] Radiologist interpretation reviewed by me: "CT ABDOMEN & PELVIS Without Contrast: No renal stones or hydronephrosis No bowel obstruction or wall thickening. Normal appendix Colonic diverticulosis without inflammation Radiologist: Galindo Zhu MD" EKG: none Consults: Dr Guevara as patient with intractable pain Reassessments/Times: multiple waxing/waning pain Blood pressure: Normal. No Referral necessary Disposition: Hospitalist evaluation Differentials: Renal Colic, Diverticulitis, Renal failure, pancreatitis, diarrheal illness, disection, spinal issue, dehydration, uti amongst other pathologies. Medical Decision Makin yr old male with several days of left flank pain and loose stools. Labs unremarkable. Vitals OK. CT without acute findings (non con given renal function). No evidence of there being ureteral stone nor hydro. No neuro deficits, loss of bladder nor pain radiation down leg to suggest spinal issue. No abnormal pulses, abdominal pain nor other evidence of ruptured AAA. His pain is not in his back but rather his side and I feel it would be difficult for this to be due to acute dissection. No evidence infection. UA is clear. No rash to suggest shingles nor cellulitis. Initially planned on discharge with pain meds though patient with returning pain and requesting to be brought in thus I consulted hospitalist for further evaluation. Impression: Acute abdominal pain in left flank Frequent Loose Stools Acute Dehydration Malachi Jimenez MD Impression & Plan Acute abdominal pain in left flank, Frequent loose stools, Acute dehydration Past Med/Surg History Social History Smoking Status: Never smoker Results & Data Vital Signs Vital Signs - 24 hr 09/20/18 04:40 09/20/18 06:23 09/20/18 08:16 Temperature 36.4 C L Temperature Source Oral Sepsis Recent Fever Within 48 Hours No Sepsis Action Taken by Nursing No Action Required Pulse Rate 75 Pulse Rate [Left Finger] 75 69 Pulse Rhythm Regular Pulse Strength Normal Respiratory Rate 18 18 18 Respiratory Effort / Characteristics Non-Labored Spontaneous Non-Labored Spontaneous Respiratory Depth Normal Normal Respiratory Pattern Regular Regular Blood Pressure 146/86 H Blood Pressure [Right Arm] 170/73 H 161/85 H Blood Pressure Mean 106 Blood Pressure Mean [Right Arm] 105 110 Blood Pressure Position Sitting Blood Pressure Position [Right Arm] Sitting Sitting Pulse Oximetry 96 96 96 Oxygen Delivery Method Room Air Room Air Room Air Laboratory Data Result diagrams: 09/20/18 05:04 09/20/18 05:04 Lab Results 09/20/18 09/20/18 09/20/18 Range/Units 05:04 05:04 05:04 WBC 9.08 (4.8-10.8) K/uL RBC 4.57 L (4.7-6.1) M/uL Hgb 15.1 (14.0-18.0) g/dL Hct 45.4 (42-52) % MCV 99.3 (80-100) fL MCH 33.0 (25-34) pg MCHC 33.3 (32-36) g/dL RDW Std Deviation 53.1 H (36.4-46.3) fL RDW Coeff of Liam 14.8 H (11.5-14.5) % Plt Count 174 (130-400) K/uL MPV 11.0 H (7.4-10.4) fL Immature Gran % (Auto) 2.0 % Neut % (Auto) 72.8 % Lymph % (Auto) 9.8 % Bennett % (Auto) 11.6 % Eos % (Auto) 3.6 % Baso % (Auto) 0.2 % Immature Gran # (Auto) 0.18 H (0.00-0.02) K/uL Neut # (Auto) 6.61 H (1.4-6.5) K/uL Lymph # (Auto) 0.89 L (1.2-3.4) K/uL Bennett # (Auto) 1.05 H (0.11-0.59) K/uL Eos # (Auto) 0.33 (0-0.5) K/uL Baso # (Auto) 0.02 (0-0.2) K/uL PT 11.3 (9.0-12.0) Seconds INR 1.1 (0.9-1.1) Sodium 141 (136-145) mmol/L Potassium 3.4 L (3.5-5.1) mmol/L Chloride 103 (98-107) mmol/L Carbon Dioxide 32 (21-32) mmol/L Anion Gap 6.0 (3-11) BUN 55 H (7-18) mg/dl Creatinine 1.94 H (0.6-1.4) mg/dl Est Cr Clr Drug Dosing 41.1 ml/min Est GFR ( Amer) 37.9 Est GFR (Non-Af Amer) 32.7 BUN/Creatinine Ratio 28.2 H (10-20) Glucose 140 H (70-99) mg/dl Calcium 8.8 (8.5-10.1) mg/dl Total Bilirubin 1.1 H (0.2-1) mg/dl Direct Bilirubin 0.3 H (0-0.2) mg/dl AST 31 (15-37) U/L ALT 32 (12-78) U/L Alkaline Phosphatase 122 H (45-117) U/L Total Protein 7.7 (6.4-8.2) gm/dl Albumin 3.4 (3.4-5.0) gm/dl Lipase 118 (73-393) U/L Urine Color Urine Appearance (Clear) Urine pH (4.5-7.5) Ur Specific [place] (1.000-1.030) Urine Protein (Negative) Urine Glucose (UA) (Negative) Urine Ketones (Negative) Urine Blood (Negative) Urine Nitrite (Negative) Urine Bilirubin (Negative) Urine Urobilinogen (Negative) Ur Leukocyte Esterase (Negative) Urine WBC (Auto) (0-5) /hpf Urine RBC (Auto) (0-4) /hpf U Hyaline Cast (Auto) (0-5) /lpf U Epithel Cells (Auto) (0-5) /lpf Urine Bacteria (Auto) (Negative) 09/20/18 Range/Units 05:09 WBC (4.8-10.8) K/uL RBC (4.7-6.1) M/uL Hgb (14.0-18.0) g/dL Hct (42-52) % MCV (80-100) fL MCH (25-34) pg MCHC (32-36) g/dL RDW Std Deviation (36.4-46.3) fL RDW Coeff of Liam (11.5-14.5) % Plt Count (130-400) K/uL MPV (7.4-10.4) fL Immature Gran % (Auto) % Neut % (Auto) % Lymph % (Auto) % Bennett % (Auto) % Eos % (Auto) % Baso % (Auto) % Immature Gran # (Auto) (0.00-0.02) K/uL Neut # (Auto) (1.4-6.5) K/uL Lymph # (Auto) (1.2-3.4) K/uL Bennett # (Auto) (0.11-0.59) K/uL Eos # (Auto) (0-0.5) K/uL Baso # (Auto) (0-0.2) K/uL PT (9.0-12.0) Seconds INR (0.9-1.1) Sodium (136-145) mmol/L Potassium (3.5-5.1) mmol/L Chloride (98-107) mmol/L Carbon Dioxide (21-32) mmol/L Anion Gap (3-11) BUN (7-18) mg/dl Creatinine (0.6-1.4) mg/dl Est Cr Clr Drug Dosing ml/min Est GFR ( Amer) Est GFR (Non-Af Amer) BUN/Creatinine Ratio (10-20) Glucose (70-99) mg/dl Calcium (8.5-10.1) mg/dl Total Bilirubin (0.2-1) mg/dl Direct Bilirubin (0-0.2) mg/dl AST (15-37) U/L ALT (12-78) U/L Alkaline Phosphatase (45-117) U/L Total Protein (6.4-8.2) gm/dl Albumin (3.4-5.0) gm/dl Lipase (73-393) U/L Urine Color Yellow Urine Appearance Clear (Clear) Urine pH 5.5 (4.5-7.5) Ur Specific [place] 1.011 (1.000-1.030) Urine Protein 1+ H (Negative) Urine Glucose (UA) Negative (Negative) Urine Ketones Negative (Negative) Urine Blood Negative (Negative) Urine Nitrite Negative (Negative) Urine Bilirubin Negative (Negative) Urine Urobilinogen Negative (Negative) Ur Leukocyte Esterase Negative (Negative) Urine WBC (Auto) 0 (0-5) /hpf Urine RBC (Auto) 0-4 (0-4) /hpf U Hyaline Cast (Auto) 1-5 (0-5) /lpf U Epithel Cells (Auto) 0-5 (0-5) /lpf Urine Bacteria (Auto) Negative (Negative) Administered Medications Discontinued Medications Fentanyl Citrate (Fentanyl Citrate) 50 mcg IV NOW STA Stop: 09/20/18 05:41 Last Admin: 09/20/18 05:56 Dose: 50 mcg Fentanyl Citrate (Fentanyl Citrate) 50 mcg IV NOW STA Stop: 09/20/18 07:34 Last Admin: 09/20/18 07:50 Dose: 50 mcg Sodium Chloride (Nss 1000ml) 500 mls @ 999 mls/hr IV .Q31M ONE Stop: 09/20/18 06:10 Last Infusion: 09/20/18 06:27 Dose: 0 mls/hr Admin: 09/20/18 05:52 Dose: 999 mls/hr Oxycodone HCl (Roxicodone Immediate Rel 5mg Home Pack) 1 homepack PO UD ONE Stop: 09/20/18 06:55 Last Admin: 09/20/18 07:50 Dose: 1 homepack Discharge Plan Visit Data Chief Complaint: Flank Pain Stated Complaint: LEFT SIDE PAIN ED Provider: Malachi Jimenez Discharge Problem: Acute abdominal pain in left flank, Frequent loose stools, Acute dehydration Patient Disposition: Home - Self-Care Condition: Good Discharge Instructions Activity Restrictions/Additional Instructions: Please follow up with your primary provider as planned. Return if worsening pain, fevers, vomiting, passing out, leg weakness, loss of bowel/bladder function or other concerning symptoms. We are always here to help! You have received a narcotic pain medication. These medications may cause drowsiness and should not be used with other sedative medications. Do not drive , drink alcohol, perform dangerous activities, nor make important decisions after taking these medications. extermination supervisor use or inappropriate use may lead to addiction. Forms Stand Alone Forms: My [facility] Acceptd, Important Visit Information Prescriptions Prescriptions: No Action levothyroxine 75 mcg Tablet 75 mcg PO Q2D Qty: 0 RF: 0 ipratropium-albuterol 20-100 mcg/actuation Mist 2 puff Inhalation Q6H PRN (Reason: SOB/WHEEZING) Qty: 0 RF: 0 metoprolol succinate 200 mg Tablet Extended Release 24 Hr 200 mg PO QAM Qty: 0 RF: 0 levothyroxine 50 mcg Tablet 50 mcg PO Q2D Qty: 0 RF: 0 allopurinol 300 mg Tablet 300 mg PO QAM Qty: 0 RF: 0 potassium chloride [Klor-Con M20] 20 mEq Tablet,Er Particles/Crystals 40 meq PO BID Qty: 0 RF: 0 cholecalciferol (vitamin D3) 2,000 unit Capsule 2,000 unit PO DAILY Qty: 0 RF: 0 isosorbide mononitrate 120 mg Tablet Extended Release 24 Hr 120 mg PO QAM Qty: 0 RF: 0 hydralazine 50 mg Tablet 50 mg PO TID Qty: 0 RF: 0 polyethylene glycol 3350 [Miralax] 17 gram Powder In Packet 17 g PO DAILY PRN (Reason: Constipation) Qty: 0 RF: 0 acetaminophen [Acetaminophen Extra Strength] 500 mg Tablet 1,000 mg PO UD PRN (Reason: Pain) Qty: 0 RF: 0 dabigatran etexilate 75 mg Capsule 75 mg PO BID Qty: 0 RF: 0 insulin asp prt-insulin aspart [Novolog Mix 70-30 U-100 Insuln] 100 unit/mL ( 70-30) Solution 20 unit subcut BID Qty: 0 RF: 0 lisinopril 2.5 mg Tablet 2.5 mg PO DAILY Qty: 0 RF: 0 multivitamin Tablet 1 tab PO DAILY RF: 0 torsemide 20 mg Tablet 20 mg PO [id number] RF: 0 lorazepam 0.5 mg Tablet 0.5 mg PO HS PRN (Reason: Anxiety) RF: 0 Referrals Referrals: Errol Julio III, MD [Primary Care Provider] - (ED Case Management called Dr. Julio's office. They will review your ED documentation and call you today to schedule an appointment. If you don't hear from them today, please call their office tomorrow at [phone]. )
[2018-09-20 05:19] LABS: Basophils # (auto) 0.02 K/uL (0-0.2); Basophils % (auto) 0.2 %; Eosinophils # (auto) 0.33 K/uL (0-0.5); Eosinophils % (auto) 3.6 %; Hematocrit (blood only) 45.4 % (42-52); Hemoglobin 15.1 g/dL (14.0-18.0); Immature Granulocytes # (auto) 0.18 K/uL (0.00-0.02); Lymphocytes # (auto) 0.89 K/uL (1.2-3.4); Lymphocytes % (auto) 9.8 %; Mean Corpuscular Hgb Conc 33.3 g/dL (32-36); Mean Corpuscular Volume 99.3 fL (80-100); Monocytes # (auto) 1.05 K/uL (0.11-0.59); Monocytes % (auto) 11.6 %; Neutrophils # (auto) 6.61 K/uL (1.4-6.5); Neutrophils % (auto) 72.8 %; Platelet Count 174 K/uL (130-400); RDW Coefficient of Variation 14.8 % (11.5-14.5); RDW Standard Deviation 53.1 fL (36.4-46.3); Red Blood Count 4.57 M/uL (4.7-6.1); White Blood Count 9.08 K/uL (4.8-10.8)
[2018-09-20 05:26] LABS: Appearance Urine Clear (Clear); Bacteria Urine Automated Negative (Negative); Bilirubin Urine Negative (Negative); Blood Urine Negative (Negative); Color Urine Yellow; Epithelial Cell Urine Auto 0-5 /lpf (0-5); Glucose Urine UA Negative (Negative); Ketones Urine Negative (Negative); Leukocyte Esterase Urine Negative (Negative); Nitrite Urine Negative (Negative); Protein Urine 1+ (Negative); RBC Urine Automated 0-4 /hpf (0-4); Specific Gravity Urine 1.011 (1.000-1.030); Urobilinogen Urine Negative (Negative); WBC Urine Automated 0 /hpf (0-5); pH Urine 5.5 (4.5-7.5)
[2018-09-20 05:34] LABS: INR 1.1 (0.9-1.1); Prothrombin Time 11.3 Seconds (9.0-12.0)
[2018-09-20 05:37] LABS: Albumin Level 3.4 gm/dl (3.4-5.0); BUN Creatinine Ratio 28.2 (10-20); Bilirubin Direct 0.3 mg/dl (0-0.2); Calcium 8.8 mg/dl (8.5-10.1); Creatinine Clr Calc Pharmacy 41.1 ml/min; Est GFR (African American) 37.9; Est GFR (Non-African American) 32.7; Potassium 3.4 mmol/L (3.5-5.1)
[2018-09-20 05:39] LABS: Bilirubin,Total 1.1 mg/dl (0.2-1); Total Protein 7.7 gm/dl (6.4-8.2)
[2018-09-20] MEDS ORDERED: fentaNYL citrate 100 MCG/2 ML VIAL IV STA ×3 (05:40→08:16)
[2018-09-20] MEDS ORDERED: SODIUM CHLORIDE 0.9% 1000ML 500 ML IV ONE (05:40)
--- NOTE | 2018-09-20 07:08 | CT Scan Report ---
CT abd pelvis wo con CLINICAL HISTORY: 77 years-old Male presenting with left flank pain on and off x 1 week. TECHNIQUE: Multidetector CT of the abdomen and pelvis was performed without the use of intravenous co ntrast. IV contrast: None. One or more dose lowering techniques were used consistent with the princip les of ALARA (as low as reasonably achievable), including automatic exposure control, mA or kV adjust ment to individual patient size, and/or use of iterative reconstruction. COMPARISON: 12/27/2017. CT DOSE (mGy.cm): The estimated cumulative dose is 1512.24 mGy.cm. FINDINGS: Machine Grainer topogram: Cholecystectomy clips. Lung bases: Multichamber enlargement of the heart. Coronary artery and aortic valve calcification. No pericardial or pleural effusion. Mild smooth interlobular septal thickening and bronchial wall thick ening. Pulmonary arteries are enlarged relative to adjacent bronchi. Minimal dependent groundglass op acity likely atelectasis. Liver: Micronodular contour of the liver suggested, which may imply underlying fibrosis. Density cons istent with hepatic steatosis. Biliary: No gross biliary ductal dilatation allowing for noncontrast technique. Gallbladder surgicall y absent. Pancreas: Moderate parenchymal atrophy. Spleen: Normal noncontrast appearance. Adrenal glands: Normal noncontrast appearance. Kidneys and ureters: Cortical scarring in the interpolar region of the right kidney. Otherwise normal noncontrast appearance. No nephrolithiasis or hydronephrosis. Ureters nondistended. Bladder: Normal noncontrast appearance. Pelvic organs: Prostate enlargement likely secondary to benign prostatic hyperplasia. Bowel: Diverticulosis of the sigmoid colon without wall thickening or pericolonic inflammatory change . The appendix is normal. No bowel obstruction. Small hiatal hernia. Peritoneal cavity: No free fluid or intraperitoneal gas. Lymph nodes: No gross lymphadenopathy allowing for noncontrast technique. Vasculature: Extensive atherosclerosis. Chronic dissection of the abdominal aorta evident. Tortuosity and mild ectasia of the infrarenal portion measuring up to 3.4 cm in diameter. The extent of the chr onic dissection was better demonstrated on prior CTA. Abdominal wall: Fat-containing inguinal hernias suspected. Small fat-containing umbilical hernia. Musculoskeletal: Degenerative changes of the spine. IMPRESSION: 1. Allowing for noncontrast technique, no acute intra-abdominal pathology. No nephrolithiasis or hyd ronephrosis. 2. Diverticulosis coli without evidence of diverticulitis. 3. Hepatic steatosis with possible underlying fibrosis. This may be due to congestive hepatopathy in the presence of chronic heart failure. 4. Cardiomegaly with volume overload/congestive change. No teresita pulmonary edema at the lung bases. 5. Chronic aortic dissection with ectasia of the infrarenal portion measuring up to 3.4 cm. This is unchanged. Electronically signed by: Irving Dang M.D. 09/20/2018 7:07 AM
[2018-09-20] MEDS: OXYCODONE IR HOME PACK PO ONE ×2 (07:50→09:46)
--- NOTE | 2018-09-20 09:09 | History & Physical Report ---
Date of Service September 20, 2018 Assessment & Plan (1) Back pain of thoracolumbar region: Positive straight leg lift on the left Patient had pain control generally with fentanyl in the ED Allergy to morphine * We will do a trial of OxyIR 5 mg and Dilaudid 0.25 mg as needed MRI of the lumbar spine without contrast PT/OT after imaging is completed Ambulate as tolerated (2) Acute abdominal pain in left flank: Reproducible pain with light palpation to left ribs No evidence of trauma or hematoma Question migration of pain from lumbar region MRI of lumbar spine is listed above Pain management as listed above CT abdomen pelvis with no evidence of diverticulitis, bowel obstruction, nephrolithiasis, hydronephrosis No nausea or vomiting No melena or hematochezia (3) Frequent loose stools: No watery diarrhea Patient reports "dumping syndrome" immediately after eating within a few minutes No abdominal pain or tenderness on palpation Monitor for watery stool. No indication to test for C. difficile at this time (4) CHF (congestive heart failure): Patient follows with Dr. Wolf as an outpatient Echocardiogram with LVEF of 30%Echocardiogram with LVEF of 30% aortic regurgitation Continue home medications No evidence of fluid overload at this time Oxygenation adequate on room air Monitor on telemetry secondary to cardiac history and chronic atrial fibrillation on anticoagulation (5) HTN (hypertension): Continue home meds including: Hydralazine, M Kristina, Toprol XL, lisinopril Monitor per protocol (6) Chronic atrial fibrillation: Irregular irregular on examination with rate in the 70s Patient was previously on warfarin and states he is currently on Pradaxa Continue Pradaxa while inpatient Monitor on telemetry (7) Chronic myeloid leukemia, disease: Follows with Dr. Jones with [facility] No indication of acute exacerbation on labs today No indication for consult at this time Failed Gleevec therapy as an outpatient secondary to fluid retention Continue outpatient management (8) Diabetes mellitus type 2 in obese: Hemoglobin A1c on 03/24/2018 was 6.1 Patient uses NovoLog 70/30 20 units twice daily as an outpatient. Continue while inpatient BSG at bedtime and AC Sliding scale insulin with meals (9) DVT prophylaxis: ROSEMARIE damon, SCDs while inpatient Continue Pradaxa Increase activity as tolerated by patient Ambulation currently limited by low back pain History of Present Illness Chief Complaint: Left flank pain moving into the back Primary Care Provider: Errol Julio MD Attending: Dr. Williamson This is a 77-year-old male who presents with left flank pain and frequent loose stools for about the last week.No significant diarrhea but patient reports dumping syndrome every time he eats.He did receive pain medication in the emergency department which helped his pain.Pain is reproducible with light palpation and dissipates with movement onto his right flank.History of AAA with repair 10 years ago at [facility].History of cho lecystectomy.No other abdominal pathology. Mr. 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 Zavaleta from nephrology and Dr. Wolf from cardiology. He states that the flank pain started about 1 week ago but got worse over the last 2 days. Yesterday it was significant to the point that he could not sleep and presented to the emergency department for further evaluation and treatment. He has no significant cough and denies any trauma or falls. CT of the abdomen and pelvis showed no nephrolithiasis or hydronephrosis. There was evidence of diverticulosis but no diverticulitis.Positive for hepatic steatosis with possible underlying fibrosis. No teresita pulmonary edema at the lung bases. There is chronic aortic dissection with ectasia of the infrarenal portion measuring up to 3.4 cm this is stable and unchanged. The patient is afebrile and has a WBC of 9.08.BUN is slightly elevated from a baseline of 36-55. Creatinine is at baseline at 1.94.Potassium was slightly low at 3.4. There are no other significant abnormalities in his labs.Lipase is normal at 118.There is no hypoxia noted.Patient denies significant cough or recent respiratory illness. He has no sputum production the significant. He denies hemoptysis. Aside from his flank and back pain, he has no acute complaints. Allergies Allergy/AdvReac Type Severity Reaction Status Date / Time adhesive Allergy Mild RASH Verified 09/20/18 05:21 morphine AdvReac Severe DELUSIONS, Verified 09/20/18 05:21 "LOSES TIME" latex AdvReac Intermediate BLISTERS Verified 09/20/18 05:21 SKIN Home Medications Home Medications Medication Instructions Recorded Confirmed Type levothyroxine 75 mcg PO Q2D #0 03/30/14 09/20/18 History ipratropium-albuterol 2 puff INHALATION Q6H PRN #0 inh 08/18/14 09/20/18 History allopurinol 300 mg PO QAM #0 11/23/14 09/20/18 History levothyroxine 50 mcg PO Q2D #0 11/23/14 09/20/18 History metoprolol succinate 200 mg PO QAM #0 11/23/14 09/20/18 History potassium chloride [Klor-Con M20] 40 meq PO BID #0 tab 10/27/15 09/20/18 History cholecalciferol (vitamin D3) 2,000 unit PO DAILY #0 10/20/16 09/20/18 History isosorbide mononitrate 120 mg PO QAM #0 07/02/17 09/20/18 History acetaminophen [Acetaminophen Extra 1,000 mg PO UD PRN #0 tab 09/03/17 09/20/18 History Strength] hydralazine 50 mg PO TID #0 tab 09/03/17 09/20/18 History polyethylene glycol 3350 [Miralax] 17 g PO DAILY PRN #0 g 09/03/17 09/20/18 History dabigatran etexilate 75 mg PO BID #0 cap 01/30/18 09/20/18 History insulin asp prt-insulin aspart 20 unit SUBCUT BID #0 btl 01/30/18 09/20/18 History [Novolog Mix 70-30 U-100 Insuln] lisinopril 2.5 mg PO DAILY #0 01/30/18 09/20/18 History lorazepam 0.5 mg PO HS PRN 09/20/18 09/20/18 History multivitamin 1 tab PO DAILY 09/20/18 09/20/18 History torsemide 40 mg PO BID17 09/20/18 09/20/18 History Past Med/Surg History Medical History Atrial fibrillation BPH (benign prostatic hyperplasia) CML (chronic myeloid leukemia) Chronic anemia Chronic anticoagulation Diabetes mellitus type 2 in obese History of tobacco abuse Hypothyroidism Idiopathic cardiomyopathy Moderate aortic regurgitation Peripheral neuropathy Stage III chronic kidney disease Systolic CHF Surgical History History of colonoscopy 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 S/P AAA (abdominal aortic aneurysm) repair Status post right knee replacement Family History Son Colon cancer CAD (coronary artery disease) Sister Lymphoma Other CVA (cerebral vascular accident) Prostate cancer Social History Preferred Language: Azerbaijani Communication Ability: Effective 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 Beliefs That Will Affect Care: None marital status: Current Living Situation: Spouse current occupational status: retired Other Information That Helps Us Care for You: No Feels Safe at Home: Yes Safety Concerns: Feels Safe At This Time Smoking Status: Former smoker Hx Alcohol Use: No Hx Substance Use: No Review of Systems All systems reviewed & are unremarkable except as noted in HPI & below Physical Exam Vital Signs (Past 24 Hours): Last Vital Signs Temp 36.4 C L 09/20/18 04:40 Pulse 69 09/20/18 08:16 Resp 18 09/20/18 08:16 BP 161/85 H 09/20/18 08:16 Pulse Ox 96 09/20/18 08:16 Physical Exam: GENERAL : No acute distress. EYES: No icterus, gaze conjugate. Pupils are equal NOSE: No evidence of epistaxis MOUTH: No lesions or candidiasis. Halitosis NECK: Supple. No appreciation of stridor or bruits LUNGS: CTA B/L, no wheezes, rales or rhonchi. Good lung sounds down to the bases. Patient does have reproducible pain at left flank with deep inspiration HEART: Irregular, irregular, rate controlled ABDOMEN: Soft, NT, ND, BS Present. Protuberant. No rebound tenderness or tenderness to deep palpation. EXTREMITIES: No LE edema, pedal pulses intact. Pain elicited to lumbar region with straight leg lift on left NEURO: A&OX3. Deep tendon reflexes equal and appropriate at the biceps, brachioradialis, and patellar tendons. Results & Data Laboratory Results 09/20/18 09/20/18 09/20/18 05:04 05:04 05:04 WBC 9.08 RBC 4.57 L Hgb 15.1 Hct 45.4 MCV 99.3 MCH 33.0 MCHC 33.3 RDW Std Deviation 53.1 H RDW Coeff of Liam 14.8 H Plt Count 174 MPV 11.0 H Immature Gran % (Auto) 2.0 Neut % (Auto) 72.8 Lymph % (Auto) 9.8 Early % (Auto) 11.6 Eos % (Auto) 3.6 Baso % (Auto) 0.2 Immature Gran # (Auto) 0.18 H Neut # (Auto) 6.61 H Lymph # (Auto) 0.89 L Early # (Auto) 1.05 H Eos # (Auto) 0.33 Baso # (Auto) 0.02 PT 11.3 INR 1.1 Sodium 141 Potassium 3.4 L Chloride 103 Carbon Dioxide 32 Anion Gap 6.0 BUN 55 H Creatinine 1.94 H Est Cr Clr Drug Dosing 41.1 Est GFR ( Amer) 37.9 Est GFR (Non-Af Amer) 32.7 BUN/Creatinine Ratio 28.2 H Glucose 140 H Calcium 8.8 Total Bilirubin 1.1 H Direct Bilirubin 0.3 H AST 31 ALT 32 Alkaline Phosphatase 122 H Total Protein 7.7 Albumin 3.4 Lipase 118 Urine Color Urine Appearance Urine pH Ur Specific [place] Urine Protein Urine Glucose (UA) Urine Ketones Urine Blood Urine Nitrite Urine Bilirubin Urine Urobilinogen Ur Leukocyte Esterase Urine WBC (Auto) Urine RBC (Auto) U Hyaline Cast (Auto) U Epithel Cells (Auto) Urine Bacteria (Auto) 09/20/18 05:09 WBC RBC Hgb Hct MCV MCH MCHC RDW Std Deviation RDW Coeff of Liam Plt Count MPV Immature Gran % (Auto) Neut % (Auto) Lymph % (Auto) Early % (Auto) Eos % (Auto) Baso % (Auto) Immature Gran # (Auto) Neut # (Auto) Lymph # (Auto) Early # (Auto) Eos # (Auto) Baso # (Auto) PT INR Sodium Potassium Chloride Carbon Dioxide Anion Gap BUN Creatinine Est Cr Clr Drug Dosing Est GFR ( Amer) Est GFR (Non-Af Amer) BUN/Creatinine Ratio Glucose Calcium Total Bilirubin Direct Bilirubin AST ALT Alkaline Phosphatase Total Protein Albumin Lipase Urine Color Yellow Urine Appearance Clear Urine pH 5.5 Ur Specific [place] 1.011 Urine Protein 1+ H Urine Glucose (UA) Negative Urine Ketones Negative Urine Blood Negative Urine Nitrite Negative Urine Bilirubin Negative Urine Urobilinogen Negative Ur Leukocyte Esterase Negative Urine WBC (Auto) 0 Urine RBC (Auto) 0-4 U Hyaline Cast (Auto) 1-5 U Epithel Cells (Auto) 0-5 Urine Bacteria (Auto) Negative Diagnostic Findings CT abd pelvis wo con CLINICAL HISTORY: 77 years-old Male presenting with left flank pain on and off x 1 week. TECHNIQUE: Multidetector CT of the abdomen and pelvis was performed without the use of intravenous contrast. IV contrast: None. One or more dose lowering techniques were used consistent with the principles of ALARA (as low as reasonably achievable), including automatic exposure control, mA or kV adjustment to individual patient size, and/or use of iterative reconstruction. COMPARISON: 12/27/2017. CT DOSE (mGy.cm): The estimated cumulative dose is 1512.24 mGy.cm. FINDINGS: [employer] topogram: Cholecystectomy clips. Lung bases: Multichamber enlargement of the heart. Coronary artery and aortic valve calcification. No pericardial or pleural effusion. Mild smooth interlobular septal thickening and bronchial wall thickening. Pulmonary arteries are enlarged relative to adjacent bronchi. Minimal dependent groundglass opacity likely atelectasis. Liver: Micronodular contour of the liver suggested, which may imply underlying fibrosis. Density consistent with hepatic steatosis. Biliary: No gross biliary ductal dilatation allowing for noncontrast technique. Gallbladder surgically absent. Pancreas: Moderate parenchymal atrophy. Spleen: Normal noncontrast appearance. Adrenal glands: Normal noncontrast appearance. Kidneys and ureters: Cortical scarring in the interpolar region of the right kidney. Otherwise normal noncontrast appearance. No nephrolithiasis or hydronephrosis. Ureters nondistended. Bladder: Normal noncontrast appearance. Pelvic organs: Prostate enlargement likely secondary to benign prostatic hyperplasia. Bowel: Diverticulosis of the sigmoid colon without wall thickening or pericolonic inflammatory change. The appendix is normal. No bowel obstruction. Small hiatal hernia. Peritoneal cavity: No free fluid or intraperitoneal gas. Lymph nodes: No gross lymphadenopathy allowing for noncontrast technique. Vasculature: Extensive atherosclerosis. Chronic dissection of the abdominal aorta evident. Tortuosity and mild ectasia of the infrarenal portion measuring up to 3.4 cm in diameter. The extent of the chronic dissection was better demonstrated on prior CTA. Abdominal wall: Fat-containing inguinal hernias suspected. Small fat-containing umbilical hernia. Musculoskeletal: Degenerative changes of the spine. IMPRESSION: 1. Allowing for noncontrast technique, no acute intra-abdominal pathology. No nephrolithiasis or hydronephrosis. 2. Diverticulosis coli without evidence of diverticulitis. 3. Hepatic steatosis with possible underlying fibrosis. This may be due to congestive hepatopathy in the presence of chronic heart failure. 4. Cardiomegaly with volume overload/congestive change. No teresita pulmonary edema at the lung bases. 5. Chronic aortic dissection with ectasia of the infrarenal portion measuring up to 3.4 cm. This is unchanged. Electronically signed by: Irving Dang M.D. 09/20/2018 7:07 AM Code Status & VTE Plan Code Status Full code VTE Prophylaxis Plan VTE Prophylaxis will be ordered: Yes Critical Care Time Critical Care Time: No Supervising Physician Co-Signing Physician Notes PA Supervision Note: I personally saw and examined the patient. I verified all pemberton points and agree with RIKA Baldwin with the following exceptions and/or additions: Patient presents with 1 week of left lower back pain that is constant but worsens with movement. It is improved with sitting and worsened with standing. He denies dysuria or hematuria, no nausea or vomiting. No fever sweats or ch ills. He does not recall an injury to the back and has no significant history of lower back pain. He denies any radiating pain, denies numbness or tingling other than his chronic neuropathy in the feet from diabetes. No urinary incontinence or bowel incontinence History and ROS as above reviewed and are in agreement Vitals reviewed Gen: [AAOx3, NAD] HEENT: [anicteric sclerae, EOMI] CV: [RRR no mgr nl S1S2] Pulm: [CTAB no wcr] Abd: [+BS soft NT ND no masses or hernias] Ext: [no edema, positive tenderness to palpation over left lumbar paraspinous muscles, 5/5 strength throughout lower extremities, DTRs 1+ and symmetric throughout lower extremities, sensation intact light touch except for in the feet bilaterally, negative straight leg raise bilaterally] Skin: [no rashes, warm/dry] except defaults CT abdomen/pelvis and MRI lumbar spine reviewed and no significant abnormalities He has no red flags 77-year-old male here with left lower back pain which is musculoskeletal in nature -Agree with plan as above and add lidocaine patches, increase Dilaudid to 0.5 mg and increase frequency to every 3 hours his current pain control is not helping Needs PT/OT evaluation, hopeful for discharge tomorrow if pain improved (1) Frequent loose stools Diarrhea type: unspecified type Qualified Code(s): R19.7 - Diarrhea, unspecified
[2018-09-20] MEDS ORDERED: DEXTROSE 50% 50 ML SYRINGE IV PRN (11:18)
[2018-09-20] MEDS ORDERED: MAGNESIUM HYDROXIDE SUSP 30 ML UDC PO PRN (11:18)
[2018-09-20] MEDS ORDERED: GLUCAGON FOR INJ 1 MG VIAL SQ PRN (11:18)
[2018-09-20] MEDS ORDERED: IPRATROPIUM BROMIDE/ALBUTEROL respimat INH INH PRN (11:18)
[2018-09-20] MEDS ORDERED: GLUCOSE 10 TABS/TUBE PO PRN (11:18)
[2018-09-20] MEDS ORDERED: ONDANSETRON INJ 2 MG/ML 2 ML VIAL IV PRN (11:18)
[2018-09-20] MEDS ORDERED: SODIUM CHLORIDE 0.9% 500 ML IV STA (11:18)
[2018-09-20] MEDS ORDERED: GLUCOSE 40% GEL 15 GM TUBE PO PRN (11:18)
[2018-09-20] MEDS ORDERED: LORazepam 0.5 MG TAB PO PRN (11:18)
[2018-09-20] MEDS ORDERED: LEVOTHYROXINE SODIUM 50 MCG TABLET PO SCH (11:18)
[2018-09-20] MEDS ORDERED: POLYETHYLENE (MIRALAX) 17 GM PACK PO PRN (11:18)
[2018-09-20] MEDS ORDERED: ACETAMINOPHEN 325 MG TAB PO PRN (11:18)
[2018-09-20] MEDS ORDERED: CARBOHYDRATES FOR HYPOGLYCEMIA PO PRN (11:18)
[2018-09-20] MEDS ORDERED: OXYCODONE HCL IR 5 MG TAB (IMMEDIATE RELEASE) ONE (12:02)
[2018-09-20] MEDS: INSULIN ASPART 100 UNITS/ML 3 ML PEN SC SCH ×3 (13:16→22:03)
[2018-09-20] MEDS ORDERED: diazePAM 5 MG TABLET PO ONE (13:48)
[2018-09-20] MEDS: INSULIN 70% ASPART PROTAMINE/30% ASPART SQ SCH ×2 (14:56→17:52)
[2018-09-20] MEDS: ISOSORBIDE MONO EXTENDED REL 60 MG TABCR PO SCH (15:01)
[2018-09-20] MEDS: MULTIVITAMIN TAB PO SCH (15:02)
[2018-09-20] MEDS: LISINOPRIL 2.5 MG TAB PO SCH (15:03)
[2018-09-20] MEDS: POTASSIUM CHLORIDE 20 MEQ TABCR PO SCH ×2 (15:03→22:04)
[2018-09-20] MEDS: DABIGATRAN ETEXILATE 75 MG CAP PO SCH ×2 (15:03→23:26)
[2018-09-20] MEDS: HydrALAZINE TAB 50 MG TAB PO SCH ×2 (15:03→22:14)
[2018-09-20] MEDS: METOPROLOL SUCC 50MG EXT REL TAB PO SCH (15:04)
[2018-09-20] MEDS: ALLOPURINOL 300 MG TAB PO SCH (15:05)
[2018-09-20] MEDS: HYDROmorphone INJ 0.5 MG/0.5 ML SYR IV PRN ×2 (15:10→19:03)
[2018-09-20] MEDS ORDERED: diazePAM 5 MG TABLET ONE (16:05)
[2018-09-20] MEDS ORDERED: TORSEMIDE 20 MG TAB PO SCH (17:00)
--- NOTE | 2018-09-20 17:18 | Magnetic Resonance Report ---
MR lumbar spine wo con CLINICAL HISTORY: Severe low back pain with left-sided radiculopathy and a positive straight leg rais e sign. TECHNIQUE: Sagittal and axial T1, T2 and STIR images were obtained. COMPARISON STUDY: Conventional radiographic study dated 11/23/2014 , CT scan dated September 20, 2018 OBSERVATIONS: There is endplate marrow edema at the L2-3 level with associated mild endplate irregularity and incre ased T2 signal within the disc. There are no paravertebral inflammatory changes. The CT scan performe d the same day reveals endplate sclerosis. The findings are therefore felt to be a discogenic degener ative basis. L1-2: No disc protrusions or extrusions. No evidence of spinal canal or neural foraminal compromise. L2-3: There is a diffuse disc bulge with mild spinal stenosis. The AP diameter thecal sac measures 7. 9 mm. There is mild right-sided foraminal narrowing. L3-4: There is a mild circumferential disc bulge. There is slight flattening of the anterior thecal s ac. Significant spinal stenosis is not felt to be present. There is minor bilateral foraminal narrowi ng L4-5: There is a minimal circumferential disc bulge. There is facet joint arthropathy. There is mild bilateral foraminal narrowing. L5-S1: There is an annular fissure and tiny central disc protrusion. There is no significant spinal o r foraminal stenosis. There is facet joint arthropathy. The conus medullaris and cauda equina appear normal. IMPRESSION: 1. L2-3 endplate marrow edema with minor endplate irregularity and increased T2 signal within the dis c. The findings are felt to be on a degenerative discogenic basis. There is a disc bulge with mild sp inal stenosis and mild right-sided foraminal narrowing 2. Annular fissure and tiny central disc protrusion at the L5-S1 level 3. Mild disc bulges at the L3-4 and L4-5 levels with mild bilateral foraminal narrowing Electronically signed by: Uday Perdomo M.D. 09/20/2018 5:17 PM
[2018-09-20] MEDS: CHOLECALCIFEROL 1,000 UNITS TAB PO SCH (17:49)
[2018-09-20] MEDS ORDERED: TORSEMIDE 20 MG TAB PO ONE (19:18)
[2018-09-20] MEDS ORDERED: HYDROmorphone INJ 0.5 MG/0.5 ML SYR IV PRN (19:31)
[2018-09-20] MEDS ORDERED: LIDOCAINE 5% 1 PATCH TD SCH (20:00)
[2018-09-21 06:18] VITALS: TEMP 97.5
[2018-09-21] MEDS ORDERED: LEVOTHYROXINE SODIUM 75 MCG TABLET PO SCH (06:30)
[2018-09-21] MEDS: ALLOPURINOL 300 MG TAB PO SCH (09:03)
[2018-09-21] MEDS: ISOSORBIDE MONO EXTENDED REL 60 MG TABCR PO SCH (09:03)
[2018-09-21] MEDS: METOPROLOL SUCC 50MG EXT REL TAB PO SCH (09:03)
[2018-09-21] MEDS: HydrALAZINE TAB 50 MG TAB PO SCH ×2 (09:04→14:40)
[2018-09-21] MEDS: LISINOPRIL 2.5 MG TAB PO SCH (09:04)
[2018-09-21] MEDS: TORSEMIDE 20 MG TAB PO SCH ×2 (09:04→17:02)
[2018-09-21] MEDS: MULTIVITAMIN TAB PO SCH (09:05)
[2018-09-21] MEDS: DABIGATRAN ETEXILATE 75 MG CAP PO SCH (09:05)
[2018-09-21] MEDS: INSULIN 70% ASPART PROTAMINE/30% ASPART SQ SCH ×2 (09:06→17:27)
[2018-09-21] MEDS: POTASSIUM CHLORIDE 20 MEQ TABCR PO SCH (09:07)
[2018-09-21] MEDS: INSULIN ASPART 100 UNITS/ML 3 ML PEN SC SCH ×3 (09:10→17:26)
[2018-09-21] MEDS: OXYCODONE HCL IR 5 MG TAB (IMMEDIATE RELEASE) PO PRN ×2 (09:15→17:23)
[2018-09-21 10:06] LABS: Estimated Average Glucose 146 mg/dl; Hemoglobin A1C 6.7 % (4.5-5.6)
[2018-09-21] MEDS ORDERED: CYCLOBENZAPRINE HCL 5 MG TAB PO PRN (11:08)
[2018-09-21] MEDS ORDERED: predniSONE 20 MG TAB PO ONE (15:06)
[2018-09-21 15:31] LABS: Hematocrit (blood only) 42.1 % (42-52); Hemoglobin 13.3 g/dL (14.0-18.0); Mean Corpuscular Hgb Conc 31.6 g/dL (32-36); Mean Corpuscular Volume 99.8 fL (80-100); Platelet Count 172 K/uL (130-400); RDW Coefficient of Variation 14.7 % (11.5-14.5); RDW Standard Deviation 53.4 fL (36.4-46.3); Red Blood Count 4.22 M/uL (4.7-6.1); White Blood Count 8.69 K/uL (4.8-10.8)
[2018-09-21 15:48] LABS: BUN Creatinine Ratio 24.8 (10-20); Calcium 8.3 mg/dl (8.5-10.1); Creatinine Clr Calc Pharmacy 37.7 ml/min; Est GFR (African American) 34.2; Est GFR (Non-African American) 29.5; Potassium 3.6 mmol/L (3.5-5.1)
[2018-09-21 16:01] VITALS: PULSE 68; O2SAT 94
--- NOTE | 2018-09-21 16:09 | Discharge Summary ---
Date of Service September 21, 2018 Admission HPI Per Admitting Provider Attending: Dr. Williamson This is a 77-year-old male who presents with left flank pain and frequent loose stools for about the last week.No significant diarrhea but patient reports dumping syndrome every time he eats.He did receive pain medication in the emergency department which helped his pain.Pain is reproducible with light palpation and dissipates with movement onto his right flank.History of AAA with repair 10 years ago at [place].History of cholecystectomy.No other abdominal pathology. Mr. 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 Zavaleta from nephrology and Dr. Wolf from cardiology. He states that the flank pain started about 1 week ago but got worse over the last 2 days. Yesterday it was significant to the point that he could not sleep and presented to the emergency department for further evaluation and treatment. He has no significant cough and denies any trauma or falls. CT of the abdomen and pelvis showed no nephrolithiasis or hydronephrosis. There was evidence of diverticulosis but no diverticulitis.Positive for hepatic steatosis with possible underlying fibrosis. No teresita pulmonary edema at the lung bases. There is chronic aortic dissection with ectasia of the infrarenal portion measuring up to 3.4 cm this is stable and unchanged. The patient is afebrile and has a WBC of 9.08.BUN is slightly elevated from a baseline of 36-55. Creatinine is at baseline at 1.94.Potassium was slightly low at 3.4. There are no other significant abnormalities in his labs.Lipase is normal at 118.There is no hypoxia noted.Patient denies significant cough or recent respiratory illness. He has no sputum production the significant. He denies hemoptysis. Aside from his flank and back pain, he has no acute complaints. Admission Exam Per Admitting Provider GENERAL : No acute distress. EYES: No icterus, gaze conjugate. Pupils are equal NOSE: No evidence of epistaxis MOUTH: No lesions or candidiasis. Halitosis NECK: Supple. No appreciation of stridor or bruits LUNGS: CTA B/L, no wheezes, rales or rhonchi. Good lung sounds down to the bases. Patient does have reproducible pain at left flank with deep inspiration HEART: Irregular, irregular, rate controlled ABDOMEN: Soft, NT, ND, BS Present. Protuberant. No rebound tenderness or tenderness to deep palpation. EXTREMITIES: No LE edema, pedal pulses intact. Pain elicited to lumbar region with straight leg lift on left NEURO: A&OX3. Deep tendon reflexes equal and appropriate at the biceps, brachioradialis, and patellar tendons. Principal Diagnosis Thoracolumbar back pain Discharge Exam General: chronically ill appearing elderly male, at bedside HEENT: NC/AT; PERRLA with EOMI; Innovation conjunctiva, MMM. Neck: Supple and nontender; No JVD Cardiac: irregular, rate controlled Lungs: CTA bilaterally; No rhonchi, wheezing, or rales Abdomen: Bowel normoactive X 4; Nontender to palpation Back: tenderness to deep palpation over left lower back/flank region. Extremities: Warm. No edema present Neuro: No focal weakness Skin: No rash Discharge Data Allergies Allergy/AdvReac Type Severity Reaction Status Date / Time adhesive Allergy Mild RASH Verified 09/20/18 05:21 morphine AdvReac Severe DELUSIONS, Verified 09/20/18 05:21 "LOSES TIME" latex AdvReac Intermediate BLISTERS Verified 09/20/18 05:21 SKIN Consultations 09/20/18 08:27 ED Decision to Admit Stat 09/20/18 11:18 Consult Case Management - Discharge Planning Routine Ordered Studies 09/20/18 04:51 CT abd pelvis wo con Urgent 09/20/18 11:18 MR lumbar spine wo con Stat Hospital Course (1) Back pain of thoracolumbar region: Pt. presented with left flank/lower back pain likely related to musculoskeletal process. MRI of L-spine showed DJD, no acute abnormalities. Dilaudid, Oxycodone and Lidocaine patch were ordered for pain control. PT did not recommend ongoing therapy. Flexeril was added for muscle spasms. Pt. had reproducible pain to palpation on exam. He had adequate pain relief with Lidocaine patch and Oxycodone tablets. Prednisone taper was started on 09/21; he received Prednisone 60 mg x 1 dose. He was stable for discharge to home on 09/21/18. Prescriptions were provided for Oxycodone 5 mg tablets x 3 days, Flexeril 5 mg TID x 3 days, Lidocaine patches and Prednisone taper. Pt. will follow up with PCP next week. (2) Acute abdominal pain in left flank: CT A/P was negative for diveriticulitis, bowel obstruction, nephrolithiasis or hydronephrosis. U/a was negative for infection. Pain was likely related to musculoskeletal process as noted above. (3) Frequent loose stools: Symptoms were consistent with a dumping syndrome; C. diff was not indicated. Pt. did not have stool incontinence and MRI of L-spine was negative for spinal canal compression. (4) CHF (congestive heart failure): Echo showed EF 30%; he follows with Dr. Wolf. Home medications were continued. No evidence of acute exacerbation. (5) HTN (hypertension): Home meds were continued. (6) Chronic atrial fibrillation: He was irregular on exam, rate controlled. Home meds, including Pradaxa, were continued. (7) Chronic myeloid leukemia, disease: Follows with Dr. Jones, treatment per outpt provider. (8) Diabetes mellitus type 2 in obese: Recent A1C was 6.1 in February 2018. SSI was ordered. He will resume home insulin at discharge. Pt. was discharged to home on 09/21/18. Total Time Total Time Spent Total Time Spent (In Minutes): >30 minutes Total Time Includes: Examination of the Patient, Discharge Planning, Medication Reconciliation, Communication With Other Providers and Other Discharge Plan Discharge Items Patient Disposition: Home - Self-Care Reason For Visit: LEFT FLANK PAIN/BACK PAIN Discharge Diagnosis: Thoracic/Lumber Spinal Pain Condition: Good Discharge Goals: Decrease discomfort, Improve function, Increase independence and Prevent disease Activity: As commented below Lifting: Gradually increase as tolerated Exercise/Sports: Gradually increase as tolerated Driving/Machine Use: No limitations Non-emergency contact: Primary Care Provider Call non-emergency contact if: you have any medication questions, your symptoms worsen, your pain is not controlled, your pain is worsening, your pain is unusual for you, your pain is concerning for you and you have a fever Follow-up/Referrals: Errol Julio III, MD [Primary Care Provider] - 10/04/18 2:00 pm (Please, follow up at Dr. Julio's office with his associate, Candida GARCIA, on WednesdayOctober 04 at 2:00 pm. *If you need to change this appointment, call the office at [phone].) Diet: Carb Consistent or DM2 and Heart Healthy Addtl Provider Instructions: 1. Lumbar/Thoracic Back Pain * MRI of spine was negative for acute abnormalities. * Spine pain is likely related to a musculoskeletal injury and may require 3-4 weeks until pain has fully resolved. * Please continue to apply heat as tolerated for pain relief. * Please take the following for pain control: - Tylenol 650 mg every 4 hours as needed for mild pain. (Max dose: 4,000 mg/day) - Oxycodone 5 mg every 6 hours as needed for moderate to severe pain. - Flexeril 5 mg three times daily for muscle spasms. - Lidocaine patches for topical pain relief. - Prescriptions were provided for Flexeril, Oxycodone and Lidocaine patches. * Please take a Prednisone taper as follows: - Prednisone 50 mg daily on 09/22/18 (starts tomorrow, you already received a dose today!) - Prednisone 40 mg daily on 09/23/18. - Prednisone 30 mg daily on 09/24/18. - Prednisone 20 mg daily on 09/25/18. - Prednisone 10 mg daily on 09/26/18. - Prescription for Prednisone taper was provided at discharge. * Please follow up with your family doctor as scheduled on 10/04/18. 2. Please call your family doctor or go to the ER if you develop the following: * Chest pain or shortness of breath. * Severe increasing back or flank pain, urinary or stool incontinence. Prescriptions: New oxycodone 5 mg capsule 5 mg PO Q6H Qty: 12 RF: 0 cyclobenzaprine 5 mg tablet 5 mg PO TID PRN (Reason: spasms) Qty: 9 RF: 0 prednisone 10 mg tablet 50 mg PO DAILY Qty: 15 RF: 0 lidocaine 5 % adhesive patch,medicated 1 patch TOP DAILY Qty: 15 RF: 0 Continued levothyroxine 75 mcg Tablet 75 mcg PO Q2D Qty: 0 RF: 0 ipratropium-albuterol 20-100 mcg/actuation Mist 2 puff Inhalation Q6H PRN (Reason: SOB/WHEEZING) Qty: 0 RF: 0 metoprolol succinate 200 mg Tablet Extended Release 24 Hr 200 mg PO QAM Qty: 0 RF: 0 levothyroxine 50 mcg Tablet 50 mcg PO Q2D Qty: 0 RF: 0 allopurinol 300 mg Tablet 300 mg PO QAM Qty: 0 RF: 0 potassium chloride [Klor-Con M20] 20 mEq Tablet,Er Particles/Crystals 40 meq PO BID Qty: 0 RF: 0 cholecalciferol (vitamin D3) 2,000 unit Capsule 2,000 unit PO DAILY Qty: 0 RF: 0 isosorbide mononitrate 120 mg Tablet Extended Release 24 Hr 120 mg PO QAM Qty: 0 RF: 0 hydralazine 50 mg Tablet 50 mg PO TID Qty: 0 RF: 0 polyethylene glycol 3350 [Miralax] 17 gram Powder In Packet 17 g PO DAILY PRN (Reason: Constipation) Qty: 0 RF: 0 dabigatran etexilate 75 mg Capsule 75 mg PO BID Qty: 0 RF: 0 insulin asp prt-insulin aspart [Novolog Mix 70-30 U-100 Insuln] 100 unit/mL (70-30) Solution 20 unit subcut BID Qty: 0 RF: 0 lisinopril 2.5 mg Tablet 2.5 mg PO DAILY Qty: 0 RF: 0 multivitamin Tablet 1 tab PO DAILY RF: 0 torsemide 20 mg Tablet 40 mg PO BID17 RF: 0 lorazepam 0.5 mg Tablet 0.5 mg PO HS PRN (Reason: Anxiety) RF: 0 Discontinued acetaminophen [Acetaminophen Extra Strength] 500 mg Tablet 1,000 mg PO UD PRN (Reason: Pain) Qty: 0 RF: 0 Discharge Orders: Discharge Order (Routine); Ordered 09/21/18 Ordered By: Britney Peoples Admission Data Admit Date/Time: 09/20/18 09:30 Attending Provider: Alyssa Williamson Admit Provider: Alyssa Williamson Primary Care Provider: Errol Julio III Other Providers: Dilan Guevara Service: Medical Other Interventions: Discharge Summary Assessment (RN) Last Done: 09/21/18 16:12 Pending Studies at Discharge: No DC Date/Time DO NOT enter until pt leaves facility: 09/21/18 18:14 Supervising Physician Co-Signing Physician Notes PA Supervision Note: I personally saw and examined the patient. I verified all pemberton points and agree with RIKA Peoples with the following exceptions and/or additions: DOing well, no complaints Vitals reviewed NAD, alert, awake Anicteric sclerae MSK-sitting on side of bed, moving all extremities well Stable for dc to home with left lower back pain that is MSK in nature, improved with pain meds and muscle relaxers. F/u with PCP ALl other chronic conditions stable
[2018-09-21 16:14] VITALS: BP 110/54
[2018-09-21] MEDS: CHOLECALCIFEROL 1,000 UNITS TAB PO SCH (17:02)
== END 2018-09-21 18:14 | disposition home or self-care (01) ==
LOC: 2N 04:34 → ED 04:34 → 2N 10:49

== ENCOUNTER 2018-11-03 13:46 | Inpatient (IN) ==
[2018-11-03 14:33] LABS: Basophils # (auto) 0.02 K/uL (0-0.2); Basophils % (auto) 0.1 %; Eosinophils # (auto) 0.11 K/uL (0-0.5); Eosinophils % (auto) 0.8 %; Hematocrit (blood only) 46.2 % (42-52); Hemoglobin 15.3 g/dL (14.0-18.0); Immature Granulocytes # (auto) 0.24 K/uL (0.00-0.02); Immature Granulocytes % (auto) 1.7 %; Lymphocytes # (auto) 1.17 K/uL (1.2-3.4); Lymphocytes % (auto) 8.5 %; Mean Corpuscular Hgb Conc 33.1 g/dL (32-36); Mean Corpuscular Volume 98.7 fL (80-100); Monocytes # (auto) 1.25 K/uL (0.11-0.59); Monocytes % (auto) 9.1 %; Neutrophils # (auto) 11.01 K/uL (1.4-6.5); Neutrophils % (auto) 79.8 %; Platelet Count 183 K/uL (130-400); Red Blood Count 4.68 M/uL (4.7-6.1)
[2018-11-03 14:40] LABS: Albumin Level 3.8 gm/dl (3.4-5.0); BUN Creatinine Ratio 21.1 (10-20); Calcium 9.7 mg/dl (8.5-10.1); Creatinine Clr Calc Pharmacy 45.9 ml/min; Est GFR (African American) 42.6; Est GFR (Non-African American) 36.7; Magnesium 2.4 mg/dl (1.8-2.4); Potassium 3.5 mmol/L (3.5-5.1)
--- NOTE | 2018-11-03 14:41 | XRay Report ---
XR chest 1V portable HISTORY: 77 years-old Male Dyspnea acute shortness of breath COMPARISON: Chest radiograph 03/24/2018 TECHNIQUE: Portable AP view of the chest FINDINGS: Cardiac silhouette is enlarged, unchanged. Calcification the thoracic aortic. Minimal bibasilar opaci ties redemonstrated suggestive of atelectasis. No pneumothorax, large pleural effusion or overt pulmo nary edema. Degenerative changes of the shoulders and spine. IMPRESSION: 1. Cardiomegaly without overt pulmonary edema. 2. Bibasilar opacities suggest probable atelectasis. The above report was generated using voice recognition software. It may contain grammatical, syntax o r spelling errors. Electronically signed by: Alphonso Jensen M.D. 11/03/2018 2:40 PM
[2018-11-03 14:44] LABS: Albumin Globulin Ratio 0.9 (0.9-2); Bilirubin,Total 1.2 mg/dl (0.2-1); Globulin 4.2 gm/dl (2.5-4.0); Troponin I 0.037 ng/ml (0-0.045)
[2018-11-03 14:45] LABS: INR 1.1 (0.9-1.1); Partial Thromboplastin Ratio 1.3; Partial Thromboplastin Time 35.4 Seconds (21.0-31.0); Prothrombin Time 11.2 Seconds (9.0-12.0)
[2018-11-03] MEDS ORDERED: FUROSEMIDE 40 MG/4 ML VIAL IV STA (15:14)
[2018-11-03 19:43] LABS: Appearance Urine Clear (Clear); Bacteria Urine Automated Negative (Negative); Bilirubin Urine Negative (Negative); Blood Urine Negative (Negative); Color Urine Yellow; Epithelial Cell Urine Auto 0-5 /lpf (0-5); Glucose Urine UA Negative (Negative); Ketones Urine Negative (Negative); Leukocyte Esterase Urine Negative (Negative); Nitrite Urine Negative (Negative); Protein Urine 1+ (Negative); RBC Urine Automated 0-4 /hpf (0-4); Specific Gravity Urine 1.008 (1.000-1.030); Urobilinogen Urine Negative (Negative); WBC Urine Automated 0 /hpf (0-5); pH Urine 6.5 (4.5-7.5)
--- NOTE | 2018-11-03 20:06 | History & Physical Report ---
Date of Service November 03, 2018 Assessment & Plan (1) Idiopathic cardiomyopathy: Patient previously has had chronic systolic heart failure with a depressed ejection fraction but most recent echocardiogram from February 2018 shows his ejection fraction had improved. However he does have diastolic dysfunction on atrial fibrillation with some valvular heart disease. Continue to be enrolled in is treated for heart failure which is likely based upon diastolic heart failure at this point time since his systolic function has returned. Patient has not had any ischemic symptoms in troponin on intake was normal. However he did have symptoms consistent with volume overload and heart failure which will call acute diastolic heart failure at this time patient was given intravenous Lasix in the ER with good diuresis and improvement of his symptoms and physical exam findings. Patient be observed in our facility overnight to the previous tenuousness of his heart failure. He will be continued with Lasix although he typically takes furosemide and have potassium supplementation. The remainder of his heart failure regimen includes metoprolol 200 a day lisinopril 2.5 a day isosorbide for anginal control hydralazine for blood pressure control he does not take aspirin because of his long-term anticoagulation (2) Atrial fibrillation: Patient suffers from permanent atrial fibrillation for which she is rate controlled with metoprolol and anticoagulated with Pradaxa 75 twice daily (3) Stage III chronic kidney disease: Patient is chronic kidney disease and medications need to be dosed appropriately this is likely based upon his diabetes (4) Diabetes mellitus type 2 in obese: Patient takes 7030 insulin this was recently made difficult to control by steroid injection for back pain. The patient does have a somewhat loose sliding scale at home. We will continue on a diabetic diet continue 70 3020 units twice daily with a aspartate sliding scale on top of it (5) BPH (benign prostatic hyperplasia): Patient patient complains of some symptoms of decreased urinary stream he does not take any form medications for BPH at this time (6) DVT prophylaxis: Pradaxa is for DVT prevention History of Present Illness Primary Care Provider: Errol Julio MD Patient presents with increased shortness of breath increased weight gain and increased lower extremity edema. The patient suffers from chronic systolic heart failure with cardiomyopathy. Patient has recently had steroid injections into his lumbar spine due to increased acute back pain. Patient also has some dietary indiscretion by going to the [facility] approximately 5 days prior to admission. Patient also notes that after steroid injections his blood sugar had creeped up slightly at home and he did self correct his 70/30 insulin. the pt did have significant diuresis in the ER and was feeling much better but not at his baseline according to him and his Allergies Allergy/AdvReac Type Severity Reaction Status Date / Time adhesive Allergy Mild RASH Verified 11/03/18 15:13 morphine AdvReac Severe DELUSIONS, Verified 11/03/18 15:13 "LOSES TIME" latex AdvReac Intermediate BLISTERS Verified 11/03/18 15:13 SKIN Home Medications Home Medications Medication Instructions Recorded Confirmed Type levothyroxine 75 mcg PO Q2D #0 03/30/14 11/03/18 History ipratropium-albuterol 2 puff INHALATION Q6H PRN #0 inh 08/18/14 11/03/18 History allopurinol 300 mg PO QAM #0 11/23/14 11/03/18 History levothyroxine 50 mcg PO Q2D #0 11/23/14 11/03/18 History metoprolol succinate 200 mg PO QAM #0 11/23/14 11/03/18 History potassium chloride [Klor-Con M20] 40 meq PO BID #0 tab 10/27/15 11/03/18 History cholecalciferol (vitamin D3) 2,000 unit PO DAILY #0 10/20/16 11/03/18 History isosorbide mononitrate 120 mg PO QAM #0 07/02/17 11/03/18 History hydralazine 50 mg PO TID #0 tab 09/03/17 11/03/18 History polyethylene glycol 3350 [Miralax] 17 g PO DAILY PRN #0 g 09/03/17 11/03/18 History Novolog Mix 70-30 U-100 Insuln 20 unit SUBCUT BID #0 btl 01/30/18 11/03/18 History dabigatran etexilate 75 mg PO BID #0 cap 01/30/18 11/03/18 History lisinopril 2.5 mg PO DAILY #0 01/30/18 11/03/18 History lorazepam 0.5 mg PO HS PRN 09/20/18 11/03/18 History multivitamin 1 tab PO DAILY 09/20/18 11/03/18 History torsemide 40 mg PO BID17 09/20/18 11/03/18 History cyclobenzaprine 5 mg PO TID PRN #9 tab 09/21/18 11/03/18 Rx lidocaine 1 patch TOP DAILY #15 ea 09/21/18 11/03/18 Rx oxycodone 5 mg PO Q6H #12 cap 09/21/18 11/03/18 Rx Past Med/Surg History Family History Son Colon cancer Coronary heart disease Sister Lymphoma Other Prostate cancer Stroke Social History Preferred Language: Tajik Beliefs That Will Affect Care: None marital status: Current Living Situation: Spouse current occupational status: retired Feels Safe at Home: Yes Smoking Status: Former smoker Hx Alcohol Use: No Hx Substance Use: No Review of Systems ROS: well nourished well developed. No double vision blurry vision No problems with speech or swallowing No palpitations, chest pain or pressure increased lower extremity swelling Dyspnea on exertion No abdominal pain nausea vomiting diarrhea changes in appetite or weight No burning urine decreased urine stream No focal joint pain or muscle pain No skin rashes or oral lesions No unusual bruising or bleeding Patient had improved back pain since visiting pain management No changes in memory or confusion Physical Exam Vital Signs (Past 24 Hours): Last Vital Signs Temp 36.9 C 11/03/18 13:53 Pulse 75 11/03/18 17:40 Resp 23 11/03/18 17:40 BP 158/82 H 11/03/18 17:40 Pulse Ox 91 11/03/18 17:40 the patient appeared well nourished and normally developed. Vital signs as documented. Head exam is unremarkable. normocephalic, atraumatic Neck is with jugular venous distension, thyromegaly, or lymphademopathy Lungs are clear although noted earlier that there was bibasilar crackles. Cardiac exam reveals irregularly irregular with systolic murmur Abdominal exam reveals normal bowel sounds, no masses, no organomegaly Extremities are 2+ edematous and patient states is slightly worse than normal Neurologic exam is A&Ox3, no focal deficits, strength is equal bilateral Psychologically seems neither anxious or depressed Skin is warm Dry without bruises or lesions Results & Data Diagnostic Findings Chest x-ray. 1. Cardiomegaly without overt pulmonary edema. 2. Bibasilar opacities suggest probable atelectasis. ECG Additional Comments: Atrial fibrillation controlled ventricular rate no acute ST or T wave changes
[2018-11-03] MEDS ORDERED: ACETAMINOPHEN 325 MG TAB PO PRN (21:57)
[2018-11-03] MEDS ORDERED: DEXTROSE 50% 50 ML SYRINGE IV PRN (21:57)
[2018-11-03] MEDS ORDERED: GLUCOSE 10 TABS/TUBE PO PRN (21:57)
[2018-11-03] MEDS ORDERED: IPRATROPIUM BROMIDE/ALBUTEROL respimat INH INH PRN (21:57)
[2018-11-03] MEDS ORDERED: CARBOHYDRATES FOR HYPOGLYCEMIA PO PRN (21:57)
[2018-11-03] MEDS ORDERED: GLUCAGON FOR INJ 1 MG VIAL SQ PRN (21:57)
[2018-11-03] MEDS ORDERED: ONDANSETRON INJ 2 MG/ML 2 ML VIAL IV PRN (21:57)
[2018-11-03] MEDS ORDERED: MoRPHine SULFATE 2 MG/ML CARP IV PRN (21:57)
[2018-11-03] MEDS ORDERED: NITROGLYCERIN SL 0.4 MG/TAB TAB SL PRN (21:57)
[2018-11-03] MEDS ORDERED: GLUCOSE 40% GEL 15 GM TUBE PO PRN (21:57)
[2018-11-03] MEDS ORDERED: POLYETHYLENE (MIRALAX) 17 GM PACK PO PRN (21:57)
[2018-11-03] MEDS ORDERED: OXYCODONE HCL IR 5 MG TAB (IMMEDIATE RELEASE) PO PRN (22:27)
[2018-11-03] MEDS: INSULIN ASPART 100 UNITS/ML 3 ML PEN SC SCH (22:39)
[2018-11-03] MEDS: DABIGATRAN ETEXILATE 75 MG CAP PO SCH (22:40)
[2018-11-03] MEDS: POTASSIUM CHLORIDE 20 MEQ TABCR PO SCH (22:40)
[2018-11-03] MEDS: FUROSEMIDE 40 MG in SYRINGE 0 ML IV SCH (22:41)
--- NOTE | 2018-11-03 23:06 | Emergency Department Note ---
Entered by Christin Bardales acting as a scribe for Philipp Bland MD ED Provider Note CHIEF COMPLAINT: SOB HISTORY OF PRESENT ILLNESS: The patient is a 77 year old male presenting to the ED with SOB beginning last night. SOB is moderate in severity and constant since onset. He was seen in the ED x2 months ago for back pain, given shots in back at pain management, sugars shot up. He notes that he did take extra insulin last night, and noticed that his sugars were 137. He notes that he has also been urinating every 3-4 minutes relating to his extra insulin intake. Patient shares he did have mild CP this morning, prompting his visit to the ED. Chest pain lasted for a few seconds, in the left side of the chest and described as sharp. He denies any jaw pain, arm pain or neck pain relating to the Chest pain. He includes that he has been admitted before for similar chief complaint, and has received IV insulin.He lastly notes that he did have an aortic problem and needed to follow up with [facility]. He also notes that he did take another form of Lasix last night, prompting his urinary frequency. He shares that his appetite has been normal, and has been staying away from salty foods. He lastly shares that he does take Pradaxa blood thinners. Pt denies LOC, headache, fevers, chills, diaphoresis, visual changes, neck pain, breathing difficulties, nausea, vomiting, abdominal pain, back pain, melena, hematochezia, numbness, weakness, lymphadenopathy, rash, or other complaints. REVIEW OF SYSTEMS: See HPI for pertinent positives and negatives. A total of ten systems were reviewed and were otherwise negative. PMHx/PSHx: Afib, CHF, kidney failure, diabetes, cardiomyopathy, hypothyroidism SOCIAL HISTORY: Patient lives at home. PHYSICAL EXAM: GENERAL: Awake, alert, in no distress, Mildly dyspneic HENT: Normocephalic, atraumatic. Oropharynx unremarkable. EYES: Normal conjunctiva. Sclera non-icteric. NECK: Inspection normal. Non-tender. Supple. No nuchal rigidity. FROM. No masses. RESPIRATORY: No wheezes. No rales. Normal respiratory effort. Diminished breath sounds. CARDIAC: Normal rate. irregular rhythm. No murmurs. No rubs. Extremities warm and well perfused. Pulses equal. No JVD. GI: Soft, non-distended. No tenderness to palpation. No rebound or guarding. No masses. RECTAL: Deferred. MUSCULOSKELETAL: Atraumatic. Chest examination reveals no tenderness. The back is symmetrical on inspection without obvious abnormality. There is no CVA tenderness to palpation. No joint edema. LOWER EXTREMITIES: Calves are equal size bilaterally and non-tender. No discolo ration. 2+ pitting edema in bilateral lower extremities. NEURO: Normal sensorium. No sensory or motor deficits noted. SKIN: No rash or jaundice noted. EMERGENCY DEPARTMENT COURSE: 1417: The patient was evaluated in room B02, and a complete history and physical examination were performed. 1545: Reassessed patient who has been urinating multiple times since receiving IV lasix. 165: Discussed case with Dr. Briceno, cardiology, who notes that patient will be given Lasix. If patient is able to lay down with no problems, able to be discharged. If patient is not able to lie flat, patient will be admitted. 165: Updated patient on discussion with Dr. Briceno. He is able to lay flat now. 174: Reassessed patient. 1748: Discussed patient case with Dr. Brenner, who accepts patient for admission. MEDICAL DECISION MAKING: Triage Nursing notes reviewed and agree them. Additional history obtained from the family. The patient's history was concerning for shortness of breath. Differential diagnosis: Etiologies such as CHF, pneumonia, COPD, reactive airway disease, cardiac ischemia, pulmonary embolism, pneumothorax, musculoskeletal, infections, gastrointestinal, as well as others were entertained. Physical examination: As above. Mildly dyspneic. ER treatment provided: IV Lasix 60 mg On reassessment the patient felt somewhat better. Patient was apprehensive about going home. Diagnostic interpretation by me: The electrocardiogram was negative for pathologic change. The labs revealed an unremarkable CBC and chemistry panel. Stable renal insufficiency. Elevated BNP consistent with CHF. Imaging studies: Chest x-ray performed. No significant acute pathology noted.. Consultation: I did consult with Dr. Mode Briceno of cardiology. He noted the patient does have a diminished EF. If he was feeling better after diuresis here in the ER he could be followed up tomorrow in the clinic with their CHF specialist. If the patient was still symptomatic he recommended him coming into the hospital for further IV diuresis. After a long discussion with the patient and reassessment he did not feel comfortable going home given his symptoms. A consultation was placed with the hospitalist. The case was discussed and diagnostics were reviewed. The patient was evaluated in the ER for further treatment. IMPRESSION: CHF, SOB, orthopnea PLAN: Plan for admission under Dr. Brenner's care. 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 Beliefs That Will Affect Care: Buddhist marital status: Current Living Situation: Spouse current occupational status: retired Other Information That Helps Us Care for You: No Feels Safe at Home: Yes Safety Concerns: Feels Safe At This Time Smoking Status: Former smoker Hx Alcohol Use: No Hx Substance Use: No Results & Data Vital Signs Vital Signs - 24 hr 11/03/18 13:53 11/03/18 14:15 11/03/18 15:03 Temperature 36.9 C Temperature Source Oral Sepsis Recent Fever Within 48 Hours No Sepsis New/Unexplained Change in Mental Status No Sepsis Action Taken by Nursing No Action Required Pulse Rate 74 83 80 Pulse Rate [Right Radial] Pulse Rate from SpO2 Sensor 73 84 Pulse Rhythm Pulse Rhythm [Right Radial] Pulse Strength [Right Radial] Respiratory Rate 28 H 30 H 24 Respiratory Effort / Characteristics Respiratory Depth Respiratory Pattern Blood Pressure 181/78 H 190/91 H Blood Pressure [Left Arm] Blood Pressure [Right Arm] Blood Pressure Mean 112 124 Blood Pressure Mean [Left Arm] Blood Pressure Mean [Right Arm] Blood Pressure Position [Right Arm] Pulse Oximetry 93 94 90 Oxygen Delivery Method Room Air 11/03/18 15:04 11/03/18 15:05 11/03/18 16:00 Temperature Temperature Source Sepsis Recent Fever Within 48 Hours Sepsis New/Unexplained Change in Mental Status Sepsis Action Taken by Nursing Pulse Rate 73 71 Pulse Rate [Right Radial] Pulse Rate from SpO2 Sensor 73 Pulse Rhythm Regular Pulse Rhythm [Right Radial] Pulse Strength [Right Radial] Respiratory Rate 24 31 H Respiratory Effort / Characteristics Respiratory Depth Respiratory Pattern Blood Pressure 190/91 H 188/80 H Blood Pressure [Left Arm] Blood Pressure [Right Arm] Blood Pressure Mean 124 116 Blood Pressure Mean [Left Arm] Blood Pressure Mean [Right Arm] Blood Pressure Position [Right Arm] Pulse Oximetry 94 94 92 Oxygen Delivery Method Room Air Room Air Room Air 11/03/18 17:00 11/03/18 17:40 11/03/18 17:41 Temperature Temperature Source Sepsis Recent Fever Within 48 Hours Sepsis New/Unexplained Change in Mental Status Sepsis Action Taken by Nursing Pulse Rate 71 75 71 Pulse Rate [Right Radial] Pulse Rate from SpO2 Sensor 75 69 Pulse Rhythm Pulse Rhythm [Right Radial] Pulse Strength [Right Radial] Respiratory Rate 30 H 23 28 H Respiratory Effort / Characteristics Respiratory Depth Respiratory Pattern Blood Pressure 168/88 H 158/82 H Blood Pressure [Left Arm] Blood Pressure [Right Arm] Blood Pressure Mean 114 107 Blood Pressure Mean [Left Arm] Blood Pressure Mean [Right Arm] Blood Pressure Position [Right Arm] Pulse Oximetry 93 91 94 Oxygen Delivery Method Room Air 11/03/18 18:02 11/03/18 19:00 11/03/18 19:23 Temperature Temperature Source Sepsis Recent Fever Within 48 Hours Sepsis New/Unexplained Change in Mental Status Sepsis Action Taken by Nursing Pulse Rate 98 H 72 71 Pulse Rate [Right Radial] Pulse Rate from SpO2 Sensor 71 Pulse Rhythm Pulse Rhythm [Right Radial] Pulse Strength [Right Radial] Respiratory Rate 23 22 22 Respiratory Effort / Characteristics Respiratory Depth Respiratory Pattern Blood Pressure 221/86 H Blood Pressure [Left Arm] Blood Pressure [Right Arm] Blood Pressure Mean 131 Blood Pressure Mean [Left Arm] Blood Pressure Mean [Right Arm] Blood Pressure Position [Right Arm] Pulse Oximetry 94 Oxygen Delivery Method 11/03/18 20:00 11/03/18 20:02 11/03/18 20:38 Temperature 36.8 C Temperature Source Sepsis Recent Fever Within 48 Hours Sepsis New/Unexplained Change in Mental Status Sepsis Action Taken by Nursing Pulse Rate 70 77 Pulse Rate [Right Radial] Pulse Rate from SpO2 Sensor Pulse Rhythm Pulse Rhythm [Right Radial] Pulse Strength [Right Radial] Respiratory Rate 33 H 27 H Respiratory Effort / Characteristics Non-Labored Spontaneous Short of Breath Respiratory Depth Normal Respiratory Pattern Regular Blood Pressure 178/95 H Blood Pressure [Left Arm] Blood Pressure [Right Arm] Blood Pressure Mean 122 Blood Pressure Mean [Left Arm] Blood Pressure Mean [Right Arm] Blood Pressure Position [Right Arm] Pulse Oximetry Oxygen Delivery Method Nasal Cannula 11/03/18 20:57 11/03/18 20:58 11/03/18 21:00 Temperature Temperature Source Sepsis Recent Fever Within 48 Hours Sepsis New/Unexplained Change in Mental Status Sepsis Action Taken by Nursing Pulse Rate 85 81 Pulse Rate [Right Radial] 87 Pulse Rate from SpO2 Sensor 77 79 Pulse Rhythm Pulse Rhythm [Right Radial] Pulse Strength [Right Radial] Respiratory Rate 20 25 H 28 H Respiratory Effort / Characteristics Respiratory Depth Respiratory Pattern Blood Pressure 160/76 H Blood Pressure [Left Arm] 160/76 H Blood Pressure [Right Arm] Blood Pressure Mean 104 Blood Pressure Mean [Left Arm] 104 Blood Pressure Mean [Right Arm] Blood Pressure Position [Right Arm] Pulse Oximetry 93 93 Oxygen Delivery Method 11/03/18 21:01 11/03/18 21:50 11/03/18 21:57 Temperature Temperature Source Sepsis Recent Fever Within 48 Hours Sepsis New/Unexplained Change in Mental Status Sepsis Action Taken by Nursing Pulse Rate 79 Pulse Rate [Right Radial] 76 Pulse Rate from SpO2 Sensor 86 Pulse Rhythm Pulse Rhythm [Right Radial] Regular Pulse Strength [Right Radial] Normal Respiratory Rate 29 H 24 Respiratory Effort / Characteristics SOB on Exertion Non-Labored Spontaneous Respiratory Depth Normal Normal Respiratory Pattern Regular Blood Pressure 159/69 H Blood Pressure [Left Arm] Blood Pressure [Right Arm] 149/74 H Blood Pressure Mean 99 Blood Pressure Mean [Left Arm] Blood Pressure Mean [Right Arm] 99 Blood Pressure Position [Right Arm] Sitting Pulse Oximetry 94 92 Oxygen Delivery Method Room Air Room Air 11/03/18 22:19 11/03/18 22:57 Temperature 36.5 C Temperature Source Oral Sepsis Recent Fever Within 48 Hours Sepsis New/Unexplained Change in Mental Status Sepsis Action Taken by Nursing Pulse Rate 85 Pulse Rate [Right Radial] 75 Pulse Rate from SpO2 Sensor Pulse Rhythm Pulse Rhythm [Right Radial] Pulse Strength [Right Radial] Respiratory Rate 24 Respiratory Effort / Characteristics Respiratory Depth Normal Respiratory Pattern Blood Pressure Blood Pressure [Left Arm] Blood Pressure [Right Arm] 171/79 H Blood Pressure Mean Blood Pressure Mean [Left Arm] Blood Pressure Mean [Right Arm] 109 Blood Pressure Position [Right Arm] Lying Pulse Oximetry 93 Oxygen Delivery Method Room Air Home Medications Current Medication List: was personally reviewed by me Laboratory Data Attestation: I reviewed the patient's lab results. Result diagrams: 11/03/18 14:06 11/03/18 14:06 Lab Results 11/03/18 11/03/18 11/03/18 Range/Units 14:06 14:06 14:06 WBC 13.80 H (4.8-10.8) K/uL RBC 4.68 L (4.7-6.1) M/uL Hgb 15.3 (14.0-18.0) g/dL Hct 46.2 (42-52) % MCV 98.7 (80-100) fL MCH 32.7 (25-34) pg MCHC 33.1 (32-36) g/dL RDW Std Deviation 54.0 H (36.4-46.3) fL RDW Coeff of Liam 15.0 H (11.5-14.5) % Plt Count 183 (130-400) K/uL MPV 11.0 H (7.4-10.4) fL Immature Gran % (Auto) 1.7 % Neut % (Auto) 79.8 % Lymph % (Auto) 8.5 % [place] % (Auto) 9.1 % Eos % (Auto) 0.8 % Baso % (Auto) 0.1 % Immature Gran # (Auto) 0.24 H (0.00-0.02) K/uL Neut # (Auto) 11.01 H (1.4-6.5) K/uL Lymph # (Auto) 1.17 L (1.2-3.4) K/uL [place] # (Auto) 1.25 H (0.11-0.59) K/uL Eos # (Auto) 0.11 (0-0.5) K/uL Baso # (Auto) 0.02 (0-0.2) K/uL PT 11.2 (9.0-12.0) Seconds INR 1.1 (0.9-1.1) APTT 35.4 H (21.0-31.0) Seconds PTT Ratio 1.3 Sodium 141 (136-145) mmol/L Potassium 3.5 (3.5-5.1) mmol/L Chloride 104 (98-107) mmol/L Carbon Dioxide 31 (21-32) mmol/L Anion Gap 5.0 (3-11) BUN 37 H (7-18) mg/dl Creatinine 1.76 H (0.6-1.4) mg/dl Est Cr Clr Drug Dosing 45.9 ml/min Est GFR ( Amer) 42.6 Est GFR (Non-Af Amer) 36.7 BUN/Creatinine Ratio 21.1 H (10-20) Glucose 115 H (70-99) mg/dl POC Glucose (70-99) Calcium 9.7 (8.5-10.1) mg/dl Magnesium 2.4 (1.8-2.4) mg/dl Total Bilirubin 1.2 H (0.2-1) mg/dl AST 37 (15-37) U/L ALT 39 (12-78) U/L Alkaline Phosphatase 123 H (45-117) U/L Troponin I 0.037 (0-0.045) ng/ml NT-Pro-B Natriuret Pep 6980 H (0-1800) pg/ml Total Protein 8.0 (6.4-8.2) gm/dl Albumin 3.8 (3.4-5.0) gm/dl Globulin 4.2 H (2.5-4.0) gm/dl Albumin/Globulin Ratio 0.9 (0.9-2) Urine Color Urine Appearance (Clear) Urine pH (4.5-7.5) Ur Specific [place] (1.000-1.030) Urine Protein (Negative) Urine Glucose (UA) (Negative) Urine Ketones (Negative) Urine Blood (Negative) Urine Nitrite (Negative) Urine Bilirubin (Negative) Urine Urobilinogen (Negative) Ur Leukocyte Esterase (Negative) Urine WBC (Auto) (0-5) /hpf Urine RBC (Auto) (0-4) /hpf U Hyaline Cast (Auto) (0-5) /lpf U Epithel Cells (Auto) (0-5) /lpf Urine Bacteria (Auto) (Negative) 11/03/18 11/03/18 Range/Units 19:25 22:38 WBC (4.8-10.8) K/uL RBC (4.7-6.1) M/uL Hgb (14.0-18.0) g/dL Hct (42-52) % MCV (80-100) fL MCH (25-34) pg MCHC (32-36) g/dL RDW Std Deviation (36.4-46.3) fL RDW Coeff of Liam (11.5-14.5) % Plt Count (130-400) K/uL MPV (7.4-10.4) fL Immature Gran % (Auto) % Neut % (Auto) % Lymph % (Auto) % [place] % (Auto) % Eos % (Auto) % Baso % (Auto) % Immature Gran # (Auto) (0.00-0.02) K/uL Neut # (Auto) (1.4-6.5) K/uL Lymph # (Auto) (1.2-3.4) K/uL [place] # (Auto) (0.11-0.59) K/uL Eos # (Auto) (0-0.5) K/uL Baso # (Auto) (0-0.2) K/uL PT (9.0-12.0) Seconds INR (0.9-1.1) APTT (21.0-31.0) Seconds PTT Ratio Sodium (136-145) mmol/L Potassium (3.5-5.1) mmol/L Chloride (98-107) mmol/L Carbon Dioxide (21-32) mmol/L Anion Gap (3-11) BUN (7-18) mg/dl Creatinine (0.6-1.4) mg/dl Est Cr Clr Drug Dosing ml/min Est GFR ( Amer) Est GFR (Non-Af Amer) BUN/Creatinine Ratio (10-20) Glucose (70-99) mg/dl POC Glucose 159 H (70-99) Calcium (8.5-10.1) mg/dl Magnesium (1.8-2.4) mg/dl Total Bilirubin (0.2-1) mg/dl AST (15-37) U/L ALT (12-78) U/L Alkaline Phosphatase (45-117) U/L Troponin I (0-0.045) ng/ml NT-Pro-B Natriuret Pep (0-1800) pg/ml Total Protein (6.4-8.2) gm/dl Albumin (3.4-5.0) gm/dl Globulin (2.5-4.0) gm/dl Albumin/Globulin Ratio (0.9-2) Urine Color Yellow Urine Appearance Clear (Clear) Urine pH 6.5 (4.5-7.5) Ur Specific [place] 1.008 (1.000-1.030) Urine Protein 1+ H (Negative) Urine Glucose (UA) Negative (Negative) Urine Ketones Negative (Negative) Urine Blood Negative (Negative) Urine Nitrite Negative (Negative) Urine Bilirubin Negative (Negative) Urine Urobilinogen Negative (Negative) Ur Leukocyte Esterase Negative (Negative) Urine WBC (Auto) 0 (0-5) /hpf Urine RBC (Auto) 0-4 (0-4) /hpf U Hyaline Cast (Auto) 1-5 (0-5) /lpf U Epithel Cells (Auto) 0-5 (0-5) /lpf Urine Bacteria (Auto) Negative (Negative) Administered Medications Dabigatran (Pradaxa) 75 mg PO BID SURYA Stop: 12/03/18 21:56 Last Admin: 11/03/18 22:40 Dose: 75 mg Documented by: [id number] Furosemide 40 mg/ Syringe 4 mls @ 4 mls/min IV BID SURYA Stop: 12/03/18 21:56 Last Admin: 11/03/18 22:41 Dose: 4 mls/min Documented by: [id number] Insulin Aspart (Novolog Flexpen) 0 units SC ACHS SURYA Stop: 12/03/18 21:56 Last Admin: 11/03/18 22:39 Dose: Not Given Documented by: [id number] Cosigned by: [id number] Potassium Chloride (Klor-Con M20) 40 meq PO BID SURYA Stop: 12/03/18 21:56 Last Admin: 11/03/18 22:40 Dose: 40 meq Documented by: [id number] Discontinued Medications Furosemide (Lasix) 60 mg IV NOW STA Stop: 11/03/18 15:15 Last Admin: 11/03/18 15:44 Dose: 60 mg Documented by: [id number] Imaging Data Radiologist's Impression: XR chest 1V portable HISTORY: 77 years-old Male Dyspnea acute shortness of breath COMPARISON: Chest radiograph 03/24/2018 TECHNIQUE: Portable AP view of the chest FINDINGS: Cardiac silhouette is enlarged, unchanged. Calcification the thoracic aortic. Minimal bibasilar opacities redemonstrated suggestive of atelectasis. No pneumothorax, large pleural effusion or overt pulmonary edema. Degenerative changes of the shoulders and spine. IMPRESSION: 1. Cardiomegaly without overt pulmonary edema. 2. Bibasilar opacities suggest probable atelectasis. The above report was generated using voice recognition software. It may contain grammatical, syntax or spelling errors. Electronically signed by: Alphonso Jensen M.D. 11/03/2018 2:40 PM ECG Data Attestation: I personally reviewed and interpreted this ECG as follows: Indication: SOB/dyspnea Rate (beats per minute): 73 Rhythm: atrial fibrillation Findings: + nonspecific-ST abn, + Q waves (anterior), + RBBB (incomplete) and + left axis deviation Comparison ECG Date: from (03/24/18) Change: no significant change Blood Pressure Blood Pressure Findings: Elevated blood pressure Blood Pressure Disposition: further management by hospitalist Discharge Plan Visit Data *Final* Discharge Date/Time: 11/03/18 22:06 Chief Complaint: Shortness of Breath/Dyspnea Stated Complaint: HARD TO BREATHE - CHEST PAIN ED Provider: Philipp Bland Discharge Problem: CHF (congestive heart failure), SOB (shortness of breath), Orthopnea Patient Disposition: Admitted As Inpatient Discharge Instructions Interventions: ED Discharge Assessment Last Done: 11/03/18 22:06 Discharge Problem: CHF (congestive heart failure) Qualifiers: Heart failure type: unspecified Heart failure chronicity: unspecified Qualified Code(s): I50.9 - Heart failure, unspecified The scribe's documentation has been prepared under my direction and personally reviewed by me in its entirety. I confirm that the note above accurately r eflects all work, treatment, procedures, and medical decision making performed by me.
[2018-11-04] MEDS: LORazepam 0.5 MG TAB PO PRN (00:51)
[2018-11-04] MEDS ORDERED: LEVOTHYROXINE SODIUM 50 MCG TABLET PO SCH (06:30)
[2018-11-04 07:03] LABS: Estimated Average Glucose 160 mg/dl; Hemoglobin A1C 7.2 % (4.5-5.6)
[2018-11-04 07:18] LABS: BUN Creatinine Ratio 22.6 (10-20); Blood Urea Nitrogen 40 mg/dl (7-18); Calcium 9.5 mg/dl (8.5-10.1); Carbon Dioxide 34 mmol/L (21-32); Chloride 101 mmol/L (98-107); Creatinine Clr Calc Pharmacy 44.8 ml/min; Est GFR (African American) 42.6; Est GFR (Non-African American) 36.7; Glucose 108 mg/dl (70-99); Sodium 141 mmol/L (136-145)
[2018-11-04] MEDS: INSULIN ASPART 100 UNITS/ML 3 ML PEN SC SCH ×4 (07:59→20:20)
[2018-11-04] MEDS: HydrALAZINE TAB 50 MG TAB PO SCH (08:01)
[2018-11-04] MEDS: ALLOPURINOL 300 MG TAB PO SCH (08:01)
[2018-11-04] MEDS: ISOSORBIDE MONO EXTENDED REL 60 MG TABCR PO SCH (08:01)
[2018-11-04] MEDS: DABIGATRAN ETEXILATE 75 MG CAP PO SCH ×2 (08:01→20:19)
[2018-11-04] MEDS: FUROSEMIDE 40 MG in SYRINGE 0 ML IV SCH (08:02)
[2018-11-04] MEDS: METOPROLOL SUCC 50MG EXT REL TAB PO SCH (08:02)
[2018-11-04] MEDS: POTASSIUM CHLORIDE 20 MEQ TABCR PO SCH ×2 (08:02→20:19)
[2018-11-04] MEDS: INSULIN 70% ASPART PROTAMINE/30% ASPART SQ SCH ×2 (08:03→17:23)
[2018-11-04] MEDS: LISINOPRIL 2.5 MG TAB PO SCH (08:10)
[2018-11-04] MEDS ORDERED: POTASSIUM CHLORIDE 20 MEQ TABCR PO STA (08:58)
--- NOTE | 2018-11-04 12:51 | Cardiology Consultation ---
Date of Consultation November 04, 2018 Assessment & Plan (1) CHF (congestive heart failure): He has diuresed about 3.4 L according to documented I's&O's, and his weight is down to 247 lbs, which is lower than his usual dry weight. He does have some residual edema this morning, but this appears chronic. Otherwise, he does not appear to be hypervolemic. He can be discharged from a cardiac standpoint, but would recommend increasing his PO Torsemide to 60 mg BID upon discharge. He will be arranged close follow-up as an outpatient in CHF clinic. Recommend low sodium diet, <2,000 mg daily. Continue daily weights. Replete potassium as indicated. (2) Atrial fibrillation: His rate has been well controlled, and he is asymptomatic. Continue rate control strategy with beta jono. Continue Pradaxa for thromboembolic prophylaxis. (3) Idiopathic cardiomyopathy: He carries a history of an idiopathic cardiomyopathy. He had normal coronary arteries at the time of diagnosis. His EF has since normalized. Contin ue beta jono and ROSIBEL inhibitor. Supervising Physician Co-Signing Physician Notes He presented with shortness of breath and edema. He has improved significantly with diuresis. He feels almost back to baseline but not quite yet. He was mildly hypoxic while ambulating per Dr. Valentino. Exam notable for: Neck: Thick neck. Cannot assess JVD. Cardiac: Irregularly irregular. Lungs: Clear Extremities: 1+ bilateral lower extremity edema approximately 4 inches above the ankles. No cyanosis ASSESSMENT/PLAN: 1. Acute on chronic diastolic CHF: Continue diuresis. He is improving symptomatically. Low-sodium diet recommended. Heart failure program on follow- up strongly recommended. If he has not had an echo since last summer, would recommend repeating echocardiogram, which could be done as an outpatient as he is likely going to be discharged tomorrow. 2. Atrial fibrillation: Heart rate adequately controlled. On anticoagulation therapy. 3. Disposition: Follow-up in heart failure program. History of Present Illness Reason for Consultation: CHF Requesting Physician: Dr. Brenner History of Present Illness Mr. Olvera is a 77 year old male with a medical history significant for resolved idiopathic cardiopathy (EF 55-60% by echo 02/2018, up from 25-30% 09/06), normal coronary arteries, chronic diastolic CHF, chronic atrial fibril lation anticoagulated with Pradaxa, chronic type B aortic dissection, insulin dependent diabetes mellitus, CKD and CML who presented to the ED yesterday with complaints of weight gain and orthopnea. The patient states that on Wednesday of this week, he had a steroid injection of his lumbar spine. Following the procedure, he and his went out to eat. The following day, he noted that his weight was up to 264 lbs according to his home scales, which was up from his usual weight of 254-255 lbs. He therefore took a dose of metolazone that morning in addition to his usual Torsemide 40 mg BID. He did not some diuresis with the diuretic therapy, but he felt short of breath when lying down that evening. He does not describe an exertional dyspnea or shortness of breath sitting upright. The shortness of breath was only when lying down. He also noted some lower extremity edema. morning, he had some intermittent sharp left sided chest discomfort which would last 2-3 seconds in duration. He became concerned and therefore decided to proceed to the ED. He has been treated with IV Lasix, and he noted an improvement in his breathing, however, he did have to sleep with the head of his bed elevated 45 degrees last night due to some mild orthopnea. He has had another dose of IV Lasix this morning. He denies any further chest discomfort. He denies syncope or presyncope. He denies abnormal bleeding such as melena, hematochezia, or hematuria. He denies cerebrovascular symptoms. He admits to a dry cough. Review of Systems: As noted in HPI. All other 10 point ROS are reviewed and otherwise negative at this time. Social history: He lives at home with his . He quit smoking in the early . He denies alcohol use. Allergies Allergy/AdvReac Type Severity Reaction Status Date / Time adhesive Allergy Mild RASH Verified 11/03/18 15:13 latex AdvReac Intermediate BLISTERS Verified 11/03/18 15:13 SKIN morphine AdvReac Intermediate DELUSIONS, Verified 11/03/18 22:01 "LOSES TIME" Home Medications Home Medications Medication Instructions Recorded Confirmed Type levothyroxine 75 mcg PO Q2D #0 03/30/14 11/03/18 History ipratropium-albuterol 2 puff INHALATION Q6H PRN #0 inh 08/18/14 11/03/18 History allopurinol 300 mg PO QAM #0 11/23/14 11/03/18 History levothyroxine 50 mcg PO Q2D #0 11/23/14 11/03/18 History metoprolol succinate 200 mg PO QAM #0 11/23/14 11/03/18 History potassium chloride [Klor-Con M20] 40 meq PO BID #0 tab 10/27/15 11/03/18 History cholecalciferol (vitamin D3) 2,000 unit PO DAILY #0 10/20/16 11/03/18 History isosorbide mononitrate 120 mg PO QAM #0 07/02/17 11/03/18 History hydralazine 50 mg PO TID #0 tab 09/03/17 11/03/18 History polyethylene glycol 3350 [Miralax] 17 g PO DAILY PRN #0 g 09/03/17 11/03/18 History Novolog Mix 70-30 U-100 Insuln 20 unit SUBCUT BID #0 btl 01/30/18 11/03/18 History dabigatran etexilate 75 mg PO BID #0 cap 01/30/18 11/03/18 History lisinopril 2.5 mg PO DAILY #0 01/30/18 11/03/18 History lorazepam 0.5 mg PO HS PRN 09/20/18 11/03/18 History multivitamin 1 tab PO DAILY 09/20/18 11/03/18 History torsemide 40 mg PO BID17 09/20/18 11/03/18 History cyclobenzaprine 5 mg PO TID PRN #9 tab 09/21/18 11/03/18 Rx lidocaine 1 patch TOP DAILY #15 ea 09/21/18 11/03/18 Rx oxycodone 5 mg PO Q6H #12 cap 09/21/18 11/03/18 Rx Patient History Family History Son Colon cancer Coronary heart disease Sister Lymphoma Other Prostate cancer Stroke Social History Communication Ability: Effective Beliefs That Will Affect Care: Anabaptist marital status: Current Living Situation: Spouse current occupational status: retired Other Information That Helps Us Care for You: No Feels Safe at Home: Yes Safety Concerns: Feels Safe At This Time Smoking Status: Former smoker Hx Alcohol Use: No Hx Substance Use: No Physical Exam Vital Signs (Past 24 Hours): Last Vital Signs Temp 36.9 C 11/04/18 11:10 Pulse 71 11/04/18 11:10 Resp 16 11/04/18 11:10 BP 126/72 11/04/18 11:10 Pulse Ox 93 11/04/18 11:10 Constitutional: Alert, oriented, in no acute distress HEENT: Head is atraumatic and normocephalic. EOMs intact. Sclera anicteric. Face is symmetric. No perioral cyanosis. Mucous membranes moist. Neck: Supple, no appreciable JVD but difficult exam given thick neck Pulmonary: Normal respiratory effort, clear to auscultation bilaterally Cardiac: Irregularly irregular, normal S1 and S2, no gallops, no rubs, no murmurs Extremities: 1+ ankle edema bilaterally and trace pretibial edema. No clubbing or cyanosis. Pulses intact. Abdomen: Normal bowel sounds, soft, non-tender, no abdominal mass palpated Skin: Normal skin color, turgor, and pigmentation, no rash, no skin lesions Neurological: Oriented to person, place, and time Results & Data Laboratory Results Laboratory Results WBC 13.80 K/uL (4.8-10.8) H 11/03/18 14:06 RBC 4.68 M/uL (4.7-6.1) L 11/03/18 14:06 Hgb 15.3 g/dL (14.0-18.0) 11/03/18 14:06 Hct 46.2 % (42-52) 11/03/18 14:06 MCV 98.7 fL (80-100) 11/03/18 14:06 MCH 32.7 pg (25-34) 11/03/18 14:06 MCHC 33.1 g/dL (32-36) 11/03/18 14:06 RDW Std Deviation 54.0 fL (36.4-46.3) H 11/03/18 14:06 RDW Coeff of Liam 15.0 % (11.5-14.5) H 11/03/18 14:06 Plt Count 183 K/uL (130-400) 11/03/18 14:06 MPV 11.0 fL (7.4-10.4) H 11/03/18 14:06 Immature Gran % (Auto) 1.7 % 11/03/18 14:06 Neut % (Auto) 79.8 % 11/03/18 14:06 Lymph % (Auto) 8.5 % 11/03/18 14:06 [place] % (Auto) 9.1 % 11/03/18 14:06 Eos % (Auto) 0.8 % 11/03/18 14:06 Baso % (Auto) 0.1 % 11/03/18 14:06 Immature Gran # (Auto) 0.24 K/uL (0.00-0.02) H 11/03/18 14:06 Neut # (Auto) 11.01 K/uL (1.4-6.5) H 11/03/18 14:06 Lymph # (Auto) 1.17 K/uL (1.2-3.4) L 11/03/18 14:06 [place] # (Auto) 1.25 K/uL (0.11-0.59) H 11/03/18 14:06 Eos # (Auto) 0.11 K/uL (0-0.5) 11/03/18 14:06 Baso # (Auto) 0.02 K/uL (0-0.2) 11/03/18 14:06 PT 11.2 Seconds (9.0-12.0) 11/03/18 14:06 INR 1.1 (0.9-1.1) 11/03/18 14:06 APTT 35.4 Seconds (21.0-31.0) H 11/03/18 14:06 PTT Ratio 1.3 11/03/18 14:06 Sodium 141 mmol/L (136-145) 11/04/18 05:54 Potassium 2.9 mmol/L (3.5-5.1) L D 11/04/18 05:59 Chloride 101 mmol/L (98-107) 11/04/18 05:54 Carbon Dioxide 34 mmol/L (21-32) H 11/04/18 05:54 Anion Gap 6.0 (3-11) 11/04/18 05:54 BUN 40 mg/dl (7-18) H 11/04/18 05:54 Creatinine 1.76 mg/dl (0.6-1.4) H 11/04/18 05:54 Est Cr Clr Drug Dosing 44.8 ml/min 11/04/18 05:54 Est GFR ( Amer) 42.6 11/04/18 05:54 Est GFR (Non-Af Amer) 36.7 11/04/18 05:54 BUN/Creatinine Ratio 22.6 (10-20) H 11/04/18 05:54 Glucose 108 mg/dl (70-99) H 11/04/18 05:54 POC Glucose 101 (70-99) H 11/04/18 11:09 Estimat Average Glucose 160 mg/dl 11/04/18 05:54 Hemoglobin A1c 7.2 % (4.5-5.6) H 11/04/18 05:54 Calcium 9.5 mg/dl (8.5-10.1) 11/04/18 05:54 Magnesium 2.4 mg/dl (1.8-2.4) 11/03/18 14:06 Total Bilirubin 1.2 mg/dl (0.2-1) H 11/03/18 14:06 AST 37 U/L (15-37) 11/03/18 14:06 ALT 39 U/L (12-78) 11/03/18 14:06 Alkaline Phosphatase 123 U/L (45-117) H 11/03/18 14:06 Troponin I 0.037 ng/ml (0-0.045) 11/03/18 14:06 NT-Pro-B Natriuret Pep 6980 pg/ml (0-1800) H 11/03/18 14:06 Total Protein 8.0 gm/dl (6.4-8.2) 11/03/18 14:06 Albumin 3.8 gm/dl (3.4-5.0) 11/03/18 14:06 Globulin 4.2 gm/dl (2.5-4.0) H 11/03/18 14:06 Albumin/Globulin Ratio 0.9 (0.9-2) 11/03/18 14:06 Urine Color Yellow 11/03/18 19:25 Urine Appearance Clear (Clear) 11/03/18 19:25 Urine pH 6.5 (4.5-7.5) 11/03/18 19:25 Ur Specific [place] 1.008 (1.000-1.030) 11/03/18 19:25 Urine Protein 1+ (Negative) H 11/03/18 19:25 Urine Glucose (UA) Negative (Negative) 11/03/18: Urine Ketones Negative (Negative) 11/03/18: Urine Blood Negative (Negative) 11/03/18:25 Urine Nitrite Negative (Negative) 11/03/18: Urine Bilirubin Negative (Negative) 11/03/18: Urine Urobilinogen Negative (Negative) 11/03/18:25 Ur Leukocyte Esterase Negative (Negative) 11/03/18 19:25 Urine WBC (Auto) 0 /hpf (0-5) 11/03/18: Urine RBC (Auto) 0-4 /hpf (0-4) 11/03/18: U Hyaline Cast (Auto) 1-5 /lpf (0-5) 11/03/18: U Epithel Cells (Auto) 0-5 /lpf (0-5) 11/03/18 19:25 Urine Bacteria (Auto) Negative (Negative) 11/03/18 19:25 Diagnostic Findings CXR: 1. Cardiomegaly without overt pulmonary edema. 2. Bibasilar opacities suggest probable atelectasis. ECG: Atrial fibrillation with premature ventricular or aberrantly conducted complexes. IRBBB. Telemetry: Atrial fibrillation in 70-80s. PVC vs aberrantly conducted complexes. (1) CHF (congestive heart failure) Heart failure chronicity: unspecified Heart failure type: unspecified Qualified Code(s): I50.9 - Heart failure, unspecified
[2018-11-04] MEDS ORDERED: POTASSIUM CHLORIDE 10 MEQ TABCR PO ONE (13:00)
--- NOTE | 2018-11-04 15:18 | Heart Failure Progress Note ---
Date of Service November 04, 2018 Assessment & Plan (1) CHF (congestive heart failure): He has diuresed about 4.1 L according to documented I's&O's, and his weight is down 16 lb (if accurate). He does have some residual edema this morning, but this appears chronic. He also had a bit of orthopnea last night. I discussed the patient with Dr. Cameron, he's planning to keep him an additional 1- 2 days for additional diuresis. Would recommend increasing his PO Torsemide to 60 mg BID upon discharge. He will be arranged close follow-up as an outpatient in CHF clinic. Recommend low sodium diet, <2,000 mg daily. Continue daily weights. Replete potassium as indicated. Follow up 11/11/18 at 10:30 am. (2) Atrial fibrillation: His rate has been well controlled, and he is asymptomatic. Continue rate control strategy with beta jono. Continue Pradaxa for thromboembolic prophylaxis. (3) Idiopathic cardiomyopathy: He carries a history of an idiopathic cardiomyopathy. He had normal coronary arteries at the time of diagnosis. His EF has since normalized. Continue beta jono and ROSIBEL inhibitor. Subjective Mr. Olvera has been referred to [facility] heart failure program. Please see Ms. Warren's cardiology consult for HPI details. This is his second hospitalization this year for heart failure exacerbation, both of which were observation status. He was last seen in the outpatient setting for heart failure follow up in May 2018. Dr. Wolf is his primary roller stainer. He is responding well to his diuretics at net negative 4.1 L and down 16 lb so far this admission. Physical Exam Vital Signs (Past 24 Hours): Last Vital Signs Temp 36.4 C L 11/04/18 14:58 Pulse 78 11/04/18 14:58 Resp 22 11/04/18 14:58 BP 138/76 11/04/18 14:58 Pulse Ox 95 11/04/18 14:58 (1) CHF (congestive heart failure) Heart failure chronicity: unspecified Heart failure type: unspecified Qualified Code(s): I50.9 - Heart failure, unspecified
[2018-11-04] MEDS ORDERED: FUROSEMIDE 40 MG/4 ML VIAL IV STA (17:12)
[2018-11-04] MEDS ORDERED: FUROSEMIDE 40 MG in SYRINGE 0 ML IV SCH (17:15)
--- NOTE | 2018-11-04 20:43 | Hospitalist Progress Note ---
Date of Service November 04, 2018 Assessment & Plan (1) Acute on chronic diastolic (congestive) heart failure: clinically improved but still with mild AGUILAR. will give an additional dose of IV lasix this evening then reassess in am. agree with cardiology recommendations to adjust his torsemide. Present on Admission?: Yes (2) HTN (hypertension): Uncontrolled which is likely contributing to his decompensated CHF. Adjust meds as needed. Present on Admission?: Yes (3) BPH (benign prostatic hyperplasia): NO issues at this time and not on meds. Present on Admission?: Yes (4) Hypothyroidism: Check TSH in am. Cont synthroid in meantime. Present on Admission?: Yes (5) Diabetes mellitus type 2 in obese: Excellent control thus far. Continue current insulin regimen. Present on Admission?: Yes (6) Stage III chronic kidney disease: Cr stable at 1.7 today. Repeat BMP am. Present on Admission?: Yes (7) Atrial fibrillation: rates controlled. cont BB. cont pradaxa BID. Present on Admission?: Yes (8) Hypokalemia: replace, repeat level AM. mag level noted to be normal. Present on Admission?: No (9) DVT prophylaxis: pradaxa hopefully home in am Subjective patient feels better today. had mild PND/orthopnea overnight but this is now improved. he still has mild AGUILAR. no dyspnea at rest. no chest pain. a.fib controlled on monitor overnight. Constitutional: no fever Respiratory: no cough, no hemoptysis and no wheezing Gastrointestinal: no abdominal pain Physical Exam Vital Signs (Past 24 Hours): Last Vital Signs Temp 36.5 C 11/04/18 19:03 Pulse 70 11/04/18 19:03 Resp 26 H 11/04/18 19:03 BP 165/67 H 11/04/18 19:03 Pulse Ox 92 11/04/18 19:03 Constitutional: well developed, well nourished and + obese; no acute distress ENMT: external ear and nose normal, oropharynx normal Respiratory: Auscultation: + diminished lung sounds (minimal -bases); no rh onchi and no wheezes Cardiovascular: Rate/Rhythm: regular rate; + abnormal rhythm (irregular) Heart Sounds: normal S1 and normal S2; no murmur Vessels: posterior tibial pulses present and dorsalis pedis pulses present; no JVD Extremities: + edema (1+ b/l) Gastrointestinal (Abdomen): normal bowel sounds, soft, nontender, no hepatosplenomegaly Psychiatric: A+Ox3, euthymic affect Results & Data Laboratory Results Laboratory Results - last 24 hr 11/03/18 11/04/18 11/04/18 22:38 05:54 05:54 Sodium 141 Potassium TNP Chloride 101 Carbon Dioxide 34 H Anion Gap 6.0 BUN 40 H Creatinine 1.76 H Est Cr Clr Drug Dosing 44.8 Est GFR ( Amer) 42.6 Est GFR (Non-Af Amer) 36.7 BUN/Creatinine Ratio 22.6 H Glucose 108 H POC Glucose 159 H Estimat Average Glucose 160 Hemoglobin A1c 7.2 H Calcium 9.5 11/04/18 11/04/18 11/04/18 05:59 07:16 11:09 Sodium Potassium 2.9 L D Chloride Carbon Dioxide Anion Gap BUN Creatinine Est Cr Clr Drug Dosing Est GFR ( Amer) Est GFR (Non-Af Amer) BUN/Creatinine Ratio Glucose POC Glucose 119 H 101 H Estimat Average Glucose Hemoglobin A1c Calcium 11/04/18 11/04/18 16:13 20:06 Sodium Potassium Chloride Carbon Dioxide Anion Gap BUN Creatinine Est Cr Clr Drug Dosing Est GFR ( Amer) Est GFR (Non-Af Amer) BUN/Creatinine Ratio Glucose POC Glucose 93 102 H Estimat Average Glucose Hemoglobin A1c Calcium (1) HTN (hypertension) Hypertension type: essential hypertension Qualified Code(s): I10 - Essential (primary) hypertension (2) BPH (benign prostatic hyperplasia) Lower urinary tract symptom presence: symptoms absent Qualified Code(s): N40.0 - Benign prostatic hyperplasia without lower urinary tract symptoms (3) Hypothyroidism Hypothyroidism type: acquired Qualified Code(s): E03.9 - Hypothyroidism, unspecified (4) Atrial fibrillation Atrial fibrillation type: persistent Qualified Code(s): I48.1 - Persistent atrial fibrillation
[2018-11-05] MEDS: LORazepam 0.5 MG TAB PO PRN (04:17)
[2018-11-05] MEDS ORDERED: LEVOTHYROXINE SODIUM 75 MCG TABLET PO SCH (06:30)
[2018-11-05 07:22] LABS: Hematocrit (blood only) 44.4 % (42-52); Hemoglobin 14.7 g/dL (14.0-18.0); Mean Corpuscular Hgb Conc 33.1 g/dL (32-36); Mean Corpuscular Volume 96.7 fL (80-100); Mean Platelet Volume 10.7 fL (7.4-10.4); Platelet Count 160 K/uL (130-400); RDW Coefficient of Variation 14.9 % (11.5-14.5); Red Blood Count 4.59 M/uL (4.7-6.1); White Blood Count 10.42 K/uL (4.8-10.8)
[2018-11-05 07:42] LABS: BUN Creatinine Ratio 22.4 (10-20); Calcium 9.2 mg/dl (8.5-10.1); Creatinine Clr Calc Pharmacy 36.4 ml/min; Est GFR (African American) 33.2; Est GFR (Non-African American) 28.7; Magnesium 2.2 mg/dl (1.8-2.4); Potassium 3.5 mmol/L (3.5-5.1)
[2018-11-05] MEDS: ALLOPURINOL 300 MG TAB PO SCH (08:01)
[2018-11-05] MEDS: HydrALAZINE TAB 50 MG TAB PO SCH (08:01)
[2018-11-05] MEDS: POTASSIUM CHLORIDE 20 MEQ TABCR PO SCH (08:01)
[2018-11-05] MEDS: METOPROLOL SUCC 50MG EXT REL TAB PO SCH (08:01)
[2018-11-05] MEDS: ISOSORBIDE MONO EXTENDED REL 60 MG TABCR PO SCH (08:01)
[2018-11-05] MEDS: DABIGATRAN ETEXILATE 75 MG CAP PO SCH (08:01)
[2018-11-05] MEDS: INSULIN 70% ASPART PROTAMINE/30% ASPART SQ SCH (08:02)
[2018-11-05] MEDS: INSULIN ASPART 100 UNITS/ML 3 ML PEN SC SCH (08:02)
[2018-11-05 11:15] VITALS: TEMP 98.1; O2SAT 92
[2018-11-05 13:48] VITALS: BP 138/76; PULSE 83
[2018-11-05] MEDS: LISINOPRIL 2.5 MG TAB PO SCH (14:50)
--- NOTE | 2018-11-15 02:08 | Discharge Summary ---
Date of Service date of admission - November 03, 2018 date of discharge - November 05, 2018 Admission HPI Per Admitting Provider 77yo male with history of cardiomyopathy with resulting chronic diastolic CHF who presented with increased shortness of breath, increased weight gain, and increased lower extremity edema over several days. Patient had recently undergone steroid injections into his lumbar spine due to acute back pain. Patient also admitted to dietary indiscretion as he went to the [facility] approximately 5 days prior to admission. After ER presentation he was given IV lasix and was feeling much better from a pulmonary standpoint following such. Principal Diagnosis acute/chronic diastolic CHF Discharge Exam Constitutional well developed, well nourished and + obese; no acute distress ENMT external ear and nose normal, oropharynx normal Respiratory Auscultation: + diminished lung sounds (minimal -bases); no crackles, no rhonchi and no wheezes Cardiovascular Rate/Rhythm: regular rate; + abnormal rhythm (irregular) Heart Sounds: normal S1 and normal S2; no murmur Vessels: posterior tibial pulses present and dorsalis pedis pulses present; no JVD Extremities: no edema Gastrointestinal (Abdomen) normal bowel sounds, soft, nontender, no hepatosplenomegaly Psychiatric A+Ox3, euthymic affect Discharge Data Allergies Allergy/AdvReac Type Severity Reaction Status Date / Time adhesive Allergy Mild RASH Verified 11/03/18 15:13 latex AdvReac Intermediate BLISTERS Verified 11/03/18 15:13 SKIN morphine AdvReac Intermediate DELUSIONS, Verified 11/03/18 22:01 "LOSES TIME" Consultations [facility] Hospital Course (1) Acute on chronic diastolic (congestive) heart failure: The patient was diuresed with improvement in his pulmonary symptoms as well as his examination. He was seen in consult by [facility] who advised that he increase his torsemide to 60mg BID following discharge. He was also counseled to check daily weights, restrict his fluid intake, and restrict salt consumption. He will need f/u in the CHF clinic post-discharge. He remains on beta jono therapy. Discharge weight was 111.7 kg. (2) HTN (hypertension): Uncontrolled which likely contributed to his decompensated CHF. BPs improved while here. (3) BPH (benign prostatic hyperplasia): NO issues during this brief stay. (4) Hypothyroidism: TSH was 2.5. Cont synthroid 75mcg daily. (5) Diabetes mellitus type 2 in obese: Excellent control while here; he will continue his prior insulin regimen at discharge. (6) Stage III chronic kidney disease: Following diuresis his creatinine yazan to 2.1 on day of discharge. Baseline Creatinine is typically about 1.7. He will return to [facility] 24 hours after discharge to recheck his BMP for stability. (7) Atrial fibrillation: Rates were controlled while here. He will continue metoprolol as well as pradaxa for anticoagulation. (8) Hypokalemia: Replaced and normalized prior to discharge. He will continue on K supplementation at home. Total Time Total Time Spent Total Time Spent (In Minutes): 40 Total Time Includes: Examination of the Patient, Discharge Planning, Medication Reconciliation and Communication With Other Providers Discharge Plan Discharge Items Patient Disposition: Home - Self-Care Reason For Visit: ACUTE ON CHRONIC SYSTOLIC HEART FAILURE Discharge Diagnosis: acute on chronic congestive heart failure - fluid retention resolved. Discharge Goals: Diagnostic testing and Therapeutic intervention Activity: Resume your previous activity Non-emergency contact: Primary Care Provider and Press Machine Operator Call non-emergency contact if: you have any medication questions, your symptoms worsen and your temperature is above 100.5 Follow-up/Referrals: Errol Julio III, MD [Primary Care Provider] - (see Dr Julio's office within 1-2 weeks) Blanca Aguirre PA-C [Physician Can Coverer] - 11/11/18 10:30 am (Please bring a current medication list and your daily weight sheet. You will need labs done 1-2 days prior to your appointment. ) Diet: Carb Consistent or DM2 and Heart Healthy Fluids: 1800ml (7 cups) Addtl Provider Instructions: From Khang Valentino - Hospitalist: 1. Congestive Heart Failure Instructions: Call your Primary Care doctor or Press Machine Operator if any of the following symptoms or problems start or get worse: * Shortness of breath or difficulty breathing * Wake up at night short of breath * Chest pain * Cough * Swelling of your hands, feet, or legs * More fatigued or tired with your normal activity * Palpitations - sudden fast heart beats WEIGHT * Weigh yourself every morning after using the bathroom. * Use the same scale. * Wear the same amount of clothing. * Write your weight down on a chart. * Call your doctors if you gain more than 2-3 pounds in 1-2 days as this is usually a sign of fluid weight gain from your congestive heart failure. MEDICATIONS * Use this discharge instruction sheet for medication instructions. * Take your medications at the time your doctor ordered. * Do not skip a dose of your medicines. * If you miss a dose of medicine, take it as soon as possible, but DO NOT DOUBLE A DOSE. * Read your medicine information when you get home. * Know all of the side effects of your medicine. If in doubt, ask your pharmacist * Call your Primary Care doctor's office if you have any side effects. * Be sure all of your doctors know what medicine and herbs you take (including cold, flu, and herbal medicine). Take the following with you to your follow-up doctor appointments: * Weight Chart * Medication List * List of questions Do not drink excessive alcohol, beer or wine. 2. Medication changes - * INCREASE your torsemide to 60mg twice a day; your blood work tomorrow will determine when to resume your water pills * HOLD your lisinopril for now 3. Please come to [facility] on 11/06/18, for a blood draw. If the blood draw looks ok you will be able to resume your torsemide and lisinopril. I will let you know. 4. Follow-up -- see separate section. 5. Return to [facility] if - * you have fevers over 100.5 degrees * you have worsening shortness of breath * you have chest pain * you have bleeding from your rectum, bladder, etc * any other concerns Prescriptions: Continued levothyroxine 75 mcg Tablet 75 mcg PO Q2D Qty: 0 RF: 0 ipratropium-albuterol 20-100 mcg/actuation Mist 2 puff Inhalation Q6H PRN (Reason: SOB/WHEEZING) Qty: 0 RF: 0 metoprolol succinate 200 mg Tablet Extended Release 24 Hr 200 mg PO QAM Qty: 0 RF: 0 levothyroxine 50 mcg Tablet 50 mcg PO Q2D Qty: 0 RF: 0 allopurinol 300 mg Tablet 300 mg PO QAM Qty: 0 RF: 0 cholecalciferol (vitamin D3) 2,000 unit Capsule 2,000 unit PO DAILY Qty: 0 RF: 0 isosorbide mononitrate 120 mg Tablet Extended Release 24 Hr 120 mg PO QAM Qty: 0 RF: 0 hydralazine 50 mg Tablet 50 mg PO TID Qty: 0 RF: 0 polyethylene glycol 3350 [Miralax] 17 gram Powder In Packet 17 g PO DAILY PRN (Reason: Constipation) Qty: 0 RF: 0 dabigatran etexilate 75 mg Capsule 75 mg PO BID Qty: 0 RF: 0 Novolog Mix 70-30 U-100 Insuln 100 unit/mL (70-30) Solution 20 unit subcut BID Qty: 0 RF: 0 multivitamin Tablet 1 tab PO DAILY RF: 0 lorazepam 0.5 mg Tablet 0.5 mg PO HS PRN (Reason: Anxiety) RF: 0 oxycodone 5 mg capsule 5 mg PO Q6H Qty: 12 RF: 0 cyclobenzaprine 5 mg tablet 5 mg PO TID PRN (Reason: spasms) Qty: 9 RF: 0 lidocaine 5 % adhesive patch,medicated 1 patch TOP DAILY Qty: 15 RF: 0 potassium chloride [Klor-Con M20] 20 mEq Tablet,Er Particles/Crystals 40 meq PO BID Qty: 120 RF: 2 Changed torsemide 20 mg Tablet 60 mg PO BID17 Qty: 180 RF: 2 Discontinued lisinopril 2.5 mg Tablet 2.5 mg PO DAILY Qty: 0 RF: 0 Stand-Alone Forms: [facility]/Other Patient Handouts: Heart Failure, Heart Failure Warning Signs Discharge Orders: Discharge Order (Routine); Ordered 11/05/18 Ordered By: Khang Valentino Admission Data Admit Date/Time: 11/04/18 14:56 Attending Provider: Khang Valentino Admit Provider: Khris Brenner Primary Care Provider: Errol Julio III Other Providers: Khris Brenner ; Edy Briceno Service: Telemetry Other Interventions: Discharge Summary Assessment (RN) Last Done: 11/05/18 13:35 Pending Studies at Discharge: No DC Date/Time DO NOT enter until pt leaves facility: 11/05/18 14:45
== END 2018-11-05 14:45 | disposition home or self-care (01) | DRG 291 ==
LOC: ED 13:46 → 2E 13:46 → SUATTDRO 20:04 → 2E 22:06
DX: Z80.42 Family history of malignant neoplasm of prostate; E11.22 Type 2 diabetes mellitus with diabetic chronic kidney disease; I13.0 Hypertensive heart and chronic kidney disease with heart failure and stage 1 through stage 4 chronic kidney disease, or unspecified chronic kidney disease; N40.0 Benign prostatic hyperplasia without lower urinary tract symptoms; I48.2 Chronic atrial fibrillation; Z82.3 Family history of stroke; E03.9 Hypothyroidism, unspecified; E66.9 Obesity, unspecified; I25.5 Ischemic cardiomyopathy; I50.33 Acute on chronic diastolic (congestive) heart failure; Z68.35 Body mass index [BMI] 35.0-35.9, adult; Z80.0 Family history of malignant neoplasm of digestive organs; N18.3 Chronic kidney disease, stage 3 (moderate)

== ENCOUNTER 2020-07-13 19:31 | Observation (INO) ==
[2020-07-13] MEDS ORDERED: SODIUM CHLORIDE 0.9% 500 ML IV SCH (19:45)
--- NOTE | 2020-07-13 19:51 | Emergency Department Note ---
Impression & Plan Weakness, Hypoglycemia, Fatigue, Acute dehydration ED Provider Note NAME: JAMEEL BARCENAS AGE: 79 SEX: M : 1940 ARRIVES VIA: Ambulance INFORMANT: [Patient][ems] ED PROVIDER(S): [Jonathan Jonas MD] CHIEF COMPLAINT: Weakness HISTORY OF PRESENT ILLNESS: The patient is a 79-year-old male with diabetes, heart failure and urinary incontinence. The patient states that he was feeling okay today. At around 530, about 2 hours ago, he took 20 units of regular insulin. He typically does this before eating. Patient states that his dinner was delayed and he never got around to eating. About an hour ago he suddenly felt very weak. His legs and arms were weak. He had some bilateral foot pain. The patient was seen by EMS. His blood sugar was around 60. He was given some orange juice and his sugar increased slightly. There has been no cough or cold or congestion. No shortness of breath or chest pain. No Covid exposures. Patient states that he seemed in baseline health earlier today. The patient does have neuropathy, it is not uncommon for his feet to be painful. REVIEW OF SYSTEMS: See HPI for pertinent positives and negatives. A total of ten systems were reviewed and were otherwise negative. PMHx/PSHx: See Below SOCIAL HISTORY: See Below. PHYSICAL EXAM: GENERAL: Patient is in no acute distress. HEENT: No acute trauma, normocephalic atraumatic, mucous membranes dry, no nasal congestion, no scleral icterus. NECK: No stridor, no adenopathy, no meningismus, trachea is midline. LUNGS: Clear to auscultation bilaterally, no wheeze, no rhonchi, breath sounds equal. HEART: Irregular rhythm, normal rate. 2/6 systolic murmur. ABDOMEN: Soft, nontender, bowel sounds positive, no hernias, no peritonitis. EXTREMITIES: No cyanosis, mild bilateral pedal edema full range of motion of all the joints without pain or difficulty, no signs for acute trauma. NEUROLOGIC: Oriented x 3, no acute motor or sensory deficits, no focal weakness. No cerebellar deficits, no speech slur or facial droop. SKIN: No rash, no jaundice, no diaphoresis. DIFFERENTIAL DIAGNOSIS: Infection, dehydration, metabolic abnormality, hypo/hyperglycemia, electrolyte disturbance, anemia, hypoxia, cardiac sources, intracerebral event, toxicologic, neurologic, as well as other pathologies. EMERGENCY DEPARTMENT COURSE/PROCEDURES: ECG: Indication was weakness. The ECG shows atrial fibrillation with a rate of 67. There is an old inferior infarct. There is some poor R wave progression. There is no ST elevation, no PVCs. The QTc is 469. Continuous Cardiac Monitoring: An order was placed for continuous cardiac monitoring. The monitor shows a rate of 61 with atrial fibrillation. MEDICAL DECISION MAKING: There is no leukocytosis or concerning anemia. There is a normal platelet count. There is an elevation to the creatinine however, this is baseline looking back at previous testing. No significant electrolyte abnormality in need of correction. There were some mild liver enzyme elevations which have been documented before, the bilirubin was normal. Patient appeared to be in a euthyroid state. ECG shows atrial fibrillation, no acute ischemia. Cardiac enzyme testing x1 is not consistent with acute cardiac injury. Urinalysis does not show infection. Chest film shows some cardiomegaly and some left base atelectasis. No acute CHF, no acute pneumonia by chest film. Covid testing returned negative. Brain CT shows no acute bleed or mass-effect. On exam, the patient was not toxic or febrile. He was not hypoxic. There were no focal neurologic deficits. Patient's blood sugar is now running in the 80s. He did receive a total of 1 L of IV fluid for hydration while here in the ED. The patient is weak. He cannot walk on his own, the nursing staff could not even get him out of bed to go to the bathroom. Patient complains of weakness and fatigue. At this point, the cause for his symptoms is unclear. I do not find any focal neurologic findings. He does not appear to have any significant infection. Cardiac testing is unremarkable. Given the weakness, given his inability to function or ambulate, I do believe that he requires a hospital stay. Further work-up is warranted. I did speak with case management, the on-call hospitalist was consulted. 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 YEAR 10 YEARS AGO History of bronchoscopy History of cardiac cath NO STENTS History of colonoscopy History of ear surgery LEFT MASTOIDECTOMY (DEAF IN LEFT EAR) History of left cataract surgery History of tonsillectomy History of tooth extraction History of total knee replacement RT S/P cholecystectomy Family History Son Colon cancer Coronary heart disease Sister Hypothyroidism Lymphoma Stroke Mother Aortic aneurysm Diabetes Father Heart disease Myocardial infarction Other Hypertension Prostate cancer Denies family history of Ovarian cancer Breast cancer Social History Smoking Status: Never smoker Age Started Using Tobacco: 16; Age Quit Using Tobacco: 39; packs per day: 5; Years Smoked: 23; Cigarettes Per Day: 100; Number of Years Since Quit: 39; Second Hand Exposure: No; Hx Alcohol Use: No Hx Substance Use: No Preferred Language: Armenian Communication Ability: Effective Hearing Ability: Use of Hearing Aid Nondestructive Tester Required: No Beliefs That Will Affect Care: None marital status: Current Living Situation: Spouse current occupational status: retired Feels Safe at Home: Yes caffeine: No Seatbelt Use: always Assistive Devices: Cane, Glasses and Hearing Aid - Right Allergies Allergies Allergy/AdvReac Type Severity Reaction Status Date / Time adhesive Allergy Mild RASH Verified 07/13/20 21:42 latex AdvReac Intermediate BLISTERS Verified 07/13/20 21:42 SKIN morphine AdvReac Intermediate DELUSIONS, Verified 07/13/20 21:42 "LOSES TIME" Home Meds Home Medications Medication Instructions Recorded Confirmed blood sugar diagnostic #10 ea 01/20/19 07/08/20 lancets 33 gauge #100 ea 01/20/19 07/08/20 multivitamin 1 tab PO DAILY 01/20/19 07/13/20 cholecalciferol (vitamin D3) 50 2,000 unit PO DAILY #0 03/01/19 07/13/20 mcg (2,000 unit) capsule Combivent Respimat 2 puff INHALATION Q6H PRN 07/19/19 07/13/20 acetaminophen [Tylenol Extra 1,000 mg PO Q6H PRN 07/19/19 07/13/20 Strength] levothyroxine 50 mcg PO Q2D 07/19/19 07/13/20 lorazepam [Ativan] 0.5 mg PO HS PRN 07/19/19 07/13/20 Previous Rx's Medication Instructions Recorded meclizine 12.5 mg tablet 12.5 mg PO QID PRN #30 tab 08/08/19 dabigatran etexilate 75 mg capsule 75 mg PO BID #180 cap 10/09/19 allopurinol 300 mg tablet 300 mg PO QAM #90 tab 12/05/19 levothyroxine 75 mcg tablet 75 mcg PO .COMPLEX #45 tab 12/26/19 torsemide 20 mg tablet 60 mg PO BID #540 tab 01/03/20 insulin aspar prot-insulin aspart 20 units SUBCUT BID #36 ml 01/18/20 100 unit/mL (70-30) subcutaneous pen pen needle, diabetic 31 gauge x #100 ea 01/18/2010/08" potassium chloride 20 mEq 60 meq PO BID #540 tab 01/18/20 tablet,extended release hydralazine 50 mg tablet 50 mg PO TID #270 tab 03/05/20 isosorbide mononitrate 120 mg 120 mg PO QAM #90 tab 03/05/20 tablet,extended release 24 hr mupirocin 2 % topical ointment 1 applic TOPICAL BID #30 g 04/11/20 metoprolol succinate 200 mg 200 mg PO QAM #90 tab 04/23/20 tablet,extended release 24 hr lisinopril 2.5 mg tablet 2.5 mg PO DAILY #90 tab 05/09/20 Results & Data (ED) Vital Signs Vital Signs - 24 hr 07/13/20 19:30 07/13/20 19:38 07/13/20 19:40 Temperature 36.4 C L Temperature Source Oral Pulse Rate 69 63 Pulse Rate from SpO2 Sensor 68 Pulse Rhythm Regular Respiratory Rate 20 16 Respiratory Effort / Characteristics Non-Labored Spontaneous Respiratory Depth Normal Respiratory Pattern Regular Blood Pressure 112/60 112/60 Blood Pressure Mean 73 77 Pulse Oximetry 96 98 96 Oxygen Delivery Method Room Air Room Air Room Air Sepsis Recent Fever Within 48 Hours No Sepsis New/Unexplained Change in Mental Status No Sepsis Action Taken by Nursing No Action Required 07/13/20 20:00 07/13/20 20:30 07/13/20 21:00 Temperature Temperature Source Pulse Rate 61 60 64 Pulse Rate from SpO2 Sensor 67 61 60 Pulse Rhythm Respiratory Rate 18 21 24 Respiratory Effort / Characteristics Respiratory Depth Respiratory Pattern Blood Pressure 105/54 L 107/55 L 109/57 L Blood Pressure Mean 80 74 76 Pulse Oximetry 94 92 94 Oxygen Delivery Method Room Air Room Air Sepsis Recent Fever Within 48 Hours Sepsis New/Unexplained Change in Mental Status Sepsis Action Taken by Nursing 07/13/20 21:30 07/13/20 22:00 07/13/20 22:31 Temperature Temperature Source Pulse Rate 63 61 70 Pulse Rate from SpO2 Sensor 64 64 71 Pulse Rhythm Respiratory Rate 23 16 22 Respiratory Effort / Characteristics Respiratory Depth Respiratory Pattern Blood Pressure 123/61 131/73 142/76 H Blood Pressure Mean 81 95 82 Pulse Oximetry 95 97 98 Oxygen Delivery Method Room Air Room Air Sepsis Recent Fever Within 48 Hours Sepsis New/Unexplained Change in Mental Status Sepsis Action Taken by Nursing 07/13/20 23:07 Temperature 36.3 C L Temperature Source Oral Pulse Rate Pulse Rate from SpO2 Sensor Pulse Rhythm Respiratory Rate Respiratory Effort / Characteristics Respiratory Depth Respiratory Pattern Blood Pressure Blood Pressure Mean Pulse Oximetry Oxygen Delivery Method Sepsis Recent Fever Within 48 Hours Sepsis New/Unexplained Change in Mental Status Sepsis Action Taken by Jail Medications Current Medication List: was personally reviewed by me Laboratory Data Attestation: I reviewed the patient's lab results. Result diagrams: 07/13/20 19:45 07/13/20 19:45 Lab Results 07/13/20 07/13/20 07/13/20 Range/Units 19:45 19:45 19:47 WBC 8.72 (4.8-10.8) K/uL RBC 4.48 L (4.7-6.1) M/uL Hgb 14.3 (14.0-18.0) g/dL Hct 44.7 (42-52) % MCV 99.8 (80-100) fL MCH 31.9 (25-34) pg MCHC 32.0 (32-36) g/dL RDW Std Deviation 52.0 H (36.4-46.3) fL RDW Coeff of Liam 14.2 (11.5-14.5) % Plt Count 207 (130-400) K/uL MPV 11.1 H (7.4-10.4) fL Immature Gran % (Auto) 1.3 % Neut % (Auto) 73.0 % Lymph % (Auto) 11.6 % [place] % (Auto) 11.1 % Eos % (Auto) 2.8 % Baso % (Auto) 0.2 % Neut # (Auto) 6.37 (1.4-6.5) K/uL Lymph # (Auto) 1.01 L (1.2-3.4) K/uL [place] # (Auto) 0.97 H (0.11-0.59) K/uL Eos # (Auto) 0.24 (0-0.5) K/uL Baso # (Auto) 0.02 (0-0.2) K/uL Immature Gran # (Auto) 0.11 H (0.00-0.02) K/uL Sodium 141 (136-145) mmol/L Potassium 4.1 (3.5-5.1) mmol/L Chloride 106 (98-107) mmol/L Carbon Dioxide 31 (21-32) mmol/L Anion Gap 4.0 (3-11) BUN 92 H (7-18) mg/dl Creatinine 2.40 H (0.6-1.4) mg/dl Est Cr Clr Drug Dosing Not Reportable Est GFR ( Amer) 28.9 Est GFR (Non-Af Amer) 24.9 BUN/Creatinine Ratio 38.2 H (10-20) Glucose 85 (70-99) mg/dl POC Glucose 93 (70-99) mg/dl Calcium 8.9 (8.5-10.1) mg/dl Magnesium 2.6 H (1.8-2.4) mg/dl Total Bilirubin 0.7 (0.2-1) mg/dl AST 51 H (15-37) U/L ALT 43 (12-78) U/L Alkaline Phosphatase 125 H (45-117) U/L Troponin I 0.023 (0-0.045) ng/ml Total Protein 7.4 (6.4-8.2) gm/dl Albumin 3.4 (3.4-5.0) gm/dl Globulin 4.0 (2.5-4.0) gm/dl Albumin/Globulin Ratio 0.9 (0.9-2) TSH 2.650 (0.300-4.500) uIu/ml Urine Color Urine Appearance (Clear) Urine pH (4.5-7.5) Ur Specific [place] (1.000-1.030) Urine Protein (Negative) Urine Glucose (UA) (Negative) Urine Ketones (Negative) Urine Blood (Negative) Urine Nitrite (Negative) Urine Bilirubin (Negative) Urine Urobilinogen (Negative) Ur Leukocyte Esterase (Negative) COVID-19 Eval Order SARS-CoV-2, RNA, NAAT (NEGATIVE) 07/13/20 07/13/20 07/13/20 Range/Units 19:50 21:19 21:20 WBC (4.8-10.8) K/uL RBC (4.7-6.1) M/uL Hgb (14.0-18.0) g/dL Hct (42-52) % MCV (80-100) fL MCH (25-34) pg MCHC (32-36) g/dL RDW Std Deviation (36.4-46.3) fL RDW Coeff of Liam (11.5-14.5) % Plt Count (130-400) K/uL MPV (7.4-10.4) fL Immature Gran % (Auto) % Neut % (Auto) % Lymph % (Auto) % [place] % (Auto) % Eos % (Auto) % Baso % (Auto) % Neut # (Auto) (1.4-6.5) K/uL Lymph # (Auto) (1.2-3.4) K/uL [place] # (Auto) (0.11-0.59) K/uL Eos # (Auto) (0-0.5) K/uL Baso # (Auto) (0-0.2) K/uL Immature Gran # (Auto) (0.00-0.02) K/uL Sodium (136-145) mmol/L Potassium (3.5-5.1) mmol/L Chloride (98-107) mmol/L Carbon Dioxide (21-32) mmol/L Anion Gap (3-11) BUN (7-18) mg/dl Creatinine (0.6-1.4) mg/dl Est Cr Clr Drug Dosing Est GFR ( Amer) Est GFR (Non-Af Amer) BUN/Creatinine Ratio (10-20) Glucose (70-99) mg/dl POC Glucose 87 (70-99) mg/dl Calcium (8.5-10.1) mg/dl Magnesium (1.8-2.4) mg/dl Total Bilirubin (0.2-1) mg/dl AST (15-37) U/L ALT (12-78) U/L Alkaline Phosphatase (45-117) U/L Troponin I (0-0.045) ng/ml Total Protein (6.4-8.2) gm/dl Albumin (3.4-5.0) gm/dl Globulin (2.5-4.0) gm/dl Albumin/Globulin Ratio (0.9-2) TSH (0.300-4.500) uIu/ml Urine Color Yellow Urine Appearance Clear (Clear) Urine pH 5.0 (4.5-7.5) Ur Specific [place] 1.011 (1.000-1.030) Urine Protein Negative (Negative) Urine Glucose (UA) Negative (Negative) Urine Ketones Negative (Negative) Urine Blood Negative (Negative) Urine Nitrite Negative (Negative) Urine Bilirubin Negative (Negative) Urine Urobilinogen Negative (Negative) Ur Leukocyte Esterase Negative (Negative) COVID-19 Eval Order Covid19 IDNow atMWIC SARS-CoV-2, RNA, NAAT (NEGATIVE) 07/13/20 Range/Units 21:20 WBC (4.8-10.8) K/uL RBC (4.7-6.1) M/uL Hgb (14.0-18.0) g/dL Hct (42-52) % MCV (80-100) fL MCH (25-34) pg MCHC (32-36) g/dL RDW Std Deviation (36.4-46.3) fL RDW Coeff of Liam (11.5-14.5) % Plt Count (130-400) K/uL MPV (7.4-10.4) fL Immature Gran % (Auto) % Neut % (Auto) % Lymph % (Auto) % [place] % (Auto) % Eos % (Auto) % Baso % (Auto) % Neut # (Auto) (1.4-6.5) K/uL Lymph # (Auto) (1.2-3.4) K/uL [place] # (Auto) (0.11-0.59) K/uL Eos # (Auto) (0-0.5) K/uL Baso # (Auto) (0-0.2) K/uL Immature Gran # (Auto) (0.00-0.02) K/uL Sodium (136-145) mmol/L Potassium (3.5-5.1) mmol/L Chloride (98-107) mmol/L Carbon Dioxide (21-32) mmol/L Anion Gap (3-11) BUN (7-18) mg/dl Creatinine (0.6-1.4) mg/dl Est Cr Clr Drug Dosing Est GFR ( Amer) Est GFR (Non-Af Amer) BUN/Creatinine Ratio (10-20) Glucose (70-99) mg/dl POC Glucose (70-99) mg/dl Calcium (8.5-10.1) mg/dl Magnesium (1.8-2.4) mg/dl Total Bilirubin (0.2-1) mg/dl AST (15-37) U/L ALT (12-78) U/L Alkaline Phosphatase (45-117) U/L Troponin I (0-0.045) ng/ml Total Protein (6.4-8.2) gm/dl Albumin (3.4-5.0) gm/dl Globulin (2.5-4.0) gm/dl Albumin/Globulin Ratio (0.9-2) TSH (0.300-4.500) uIu/ml Urine Color Urine Appearance (Clear) Urine pH (4.5-7.5) Ur Specific [place] (1.000-1.030) Urine Protein (Negative) Urine Glucose (UA) (Negative) Urine Ketones (Negative) Urine Blood (Negative) Urine Nitrite (Negative) Urine Bilirubin (Negative) Urine Urobilinogen (Negative) Ur Leukocyte Esterase (Negative) COVID-19 Eval Order SARS-CoV-2, RNA, NAAT NEGATIVE (NEGATIVE) Administered Medications Discontinued Medications Sodium Chloride (Nss) 500 mls @ 999 mls/hr IV .Q31M SURYA Stop: 07/13/20 20:15 Last Infusion: 07/13/20 20:52 Dose: 0 mls/hr Documented by: [id number] Admin: 07/13/20 19:56 Dose: 999 mls/hr Documented by: [id number] Sodium Chloride (Nss 1000ml) 500 mls @ 999 mls/hr IV .Q31M ONE Stop: 07/13/20 21:59 Last Infusion: 07/13/20 23:08 Dose: 0 mls/hr Documented by: [id number] Admin: 07/13/20 22:31 Dose: 999 mls/hr Documented by: [id number] Imaging Data Radiologist's Impression: SINGLE VIEW CHEST CLINICAL HISTORY: Generalized weakness. FINDINGS: An AP, portable, upright chest radiograph is compared to study dated 07/19/2019 and correlated with chest CT dated 12/27/2017. The heart is markedly enlarged noting atherosclerotic calcification of the thoracic aorta. The pulmonary vasculature is noncongested. Atelectasis is seen at the lung bases. No airspace consolidation or large pleural effusion is identified. No pneumothorax is seen. The skeletal structures are osteopenic. The bony thorax is grossly intact. Degenerative change is noted in the thoracic spine. Cholecystectomy clips are seen in the right upper quadrant. IMPRESSION: Marked cardiomegaly with no acute cardiopulmonary abnormality. CT SCAN OF THE BRAIN WITHOUT IV CONTRAST CLINICAL HISTORY: Weakness. Change in mental status. COMPARISON STUDY: CT of the brain dated 07/19/2019. TECHNIQUE: Unenhanced axial CT scan of the brain is performed from the vertex to the skull base. A dose lowering technique was utilized adhering to the principles of ALARA. CT DOSE: 537.48 mGy.cm FINDINGS: Brain parenchyma: There are age-related involutional changes noting moderate to advanced subcortical and periventricular microangiopathic change. There is no hemorrhage, mass effect, or evidence of acute territorial ischemia by CT criteria. Price-white matter differentiation is preserved. No extra-axial fluid collection is seen. Ventricles, sulci, cisterns: Prominent secondary to involutional change. Intracranial vasculature: There is atherosclerotic calcification of the cavernous carotid and vertebral arteries. Calvarium: Unremarkable. Sinuses and mastoids: The visualized paranasal sinuses are clear. Question previous left mastoid surgery. There is trace right mastoid effusion. Orbits: The bony orbits are grossly intact. There are bilateral ocular lens implants. IMPRESSION: There is no hemorrhage, mass effect, or evidence of acute territorial ischemia by CT criteria. Discharge Plan Visit Data Chief Complaint: Weakness Stated Complaint: WEAKNESS/HYPOGLYCEMIC ED Provider: Jonathan Jonas Discharge Problem: Weakness, Hypoglycemia, Fatigue, Acute dehydration Patient Disposition: Admitted As Inpatient Condition: Good Forms Stand Alone Forms: My [facility] Prescriptions Prescriptions: No Action cholecalciferol (vitamin D3) 2,000 unit capsule 2,000 unit PO DAILY Qty: 0 RF: 0 dabigatran etexilate 75 mg capsule 75 mg PO BID Qty: 180 RF: 3 allopurinol 300 mg tablet 300 mg PO QAM Qty: 90 RF: 3 levothyroxine 75 mcg tablet 75 mcg PO .COMPLEX Qty: 45 RF: 1 torsemide 20 mg tablet 60 mg PO BID Qty: 540 RF: 3 metoprolol succinate 200 mg tablet extended release 24 hr 200 mg PO QAM Qty: 90 RF: 1 lisinopril 2.5 mg tablet 2.5 mg PO DAILY Qty: 90 RF: 3 hydralazine 50 mg tablet 50 mg PO TID Qty: 270 RF: 3 isosorbide mononitrate 120 mg tablet extended release 24 hr 120 mg PO QAM Qty: 90 RF: 3 mupirocin 2 % ointment 1 applic topical BID Qty: 30 RF: 1 multivitamin [Daily Multi-Vitamin] tablet 1 tab PO DAILY RF: 0 (DME) OneTouch Verio test strips strip See Dose Instructions .ROUTE .MEDSUPPLY Qty: 10 RF: 0 (DME) lancets [OneTouch Delica Lancets] 33 gauge misc See Dose Instructions .ROUTE .MEDSUPPLY Qty: 100 RF: 0 potassium chloride 20 mEq tablet extended release 60 meq PO BID Qty: 540 RF: 3 insulin asp prt-insulin aspart 100 unit/mL (70-30) insulin pen 20 units subcut BID Qty: 36 RF: 11 (DME) pen needle, diabetic [BD Ultra-Fine Mini Pen Needle] 31 gauge x 3/16" needle See Dose Instructions .ROUTE .MEDSUPPLY Qty: 100 RF: 3 meclizine 12.5 mg tablet 12.5 mg PO QID PRN (Reason: dizziness) Qty: 30 RF: 1 levothyroxine 50 mcg Tablet 50 mcg PO Q2D RF: 0 acetaminophen [Tylenol Extra Strength] 500 mg Tablet 1,000 mg PO Q6H PRN (Reason: pain/fever) RF: 0 lorazepam [Ativan] 0.5 mg Tablet 0.5 mg PO HS PRN (Reason: Sleep) RF: 0 Combivent Respimat 20-100 mcg/actuation Mist 2 puff INHALATION Q6H PRN (Reason: sob/wheezing) RF: 0 Referrals Referrals: Errol Julio III, MD [Primary Care Provider] - Discharge Problem: Fatigue Qualifiers: Fatigue type: unspecified Qualified Code(s): R53.83 - Other fatigue
[2020-07-13 19:58] LABS: Basophils # (auto) 0.02 K/uL (0-0.2); Basophils % (auto) 0.2 %; Eosinophils # (auto) 0.24 K/uL (0-0.5); Eosinophils % (auto) 2.8 %; Hematocrit (blood only) 44.7 % (42-52); Hemoglobin 14.3 g/dL (14.0-18.0); Immature Granulocytes # (auto) 0.11 K/uL (0.00-0.02); Immature Granulocytes % (auto) 1.3 %; Lymphocytes # (auto) 1.01 K/uL (1.2-3.4); Lymphocytes % (auto) 11.6 %; Mean Corpuscular Hemoglobin 31.9 pg (25-34); Mean Corpuscular Volume 99.8 fL (80-100); Mean Platelet Volume 11.1 fL (7.4-10.4); Monocytes # (auto) 0.97 K/uL (0.11-0.59); Monocytes % (auto) 11.1 %; Neutrophils # (auto) 6.37 K/uL (1.4-6.5); Platelet Count 207 K/uL (130-400); RDW Coefficient of Variation 14.2 % (11.5-14.5); Red Blood Count 4.48 M/uL (4.7-6.1); White Blood Count 8.72 K/uL (4.8-10.8)
[2020-07-13 20:16] LABS: Alanine Aminotransferase 43 U/L (12-78); Albumin Level 3.4 gm/dl (3.4-5.0); Aspartate Aminotransferase 51 U/L (15-37); BUN Creatinine Ratio 38.2 (10-20); Blood Urea Nitrogen 92 mg/dl (7-18); Calcium 8.9 mg/dl (8.5-10.1); Carbon Dioxide 31 mmol/L (21-32); Chloride 106 mmol/L (98-107); Est GFR (African American) 28.9; Est GFR (Non-African American) 24.9; Glucose 85 mg/dl (70-99); Magnesium 2.6 mg/dl (1.8-2.4); Potassium 4.1 mmol/L (3.5-5.1); Sodium 141 mmol/L (136-145)
--- NOTE | 2020-07-13 20:17 | XRay Report ---
SINGLE VIEW CHEST CLINICAL HISTORY: Generalized weakness. FINDINGS: An AP, portable, upright chest radiograph is compared to study dated 07/19/2019 and correla nannette with chest CT dated 12/27/2017. The heart is markedly enlarged noting atherosclerotic calcification of the thoracic aorta. The pulmonary vasculature is noncongested. Atelectasis is seen at the lung ba ses. No airspace consolidation or large pleural effusion is identified. No pneumothorax is seen. The skeletal structures are osteopenic. The bony thorax is grossly intact. Degenerative change is noted i n the thoracic spine. Cholecystectomy clips are seen in the right upper quadrant. IMPRESSION: Marked cardiomegaly with no acute cardiopulmonary abnormality. ACT 112: Negative or not required by law. Electronically signed by: Jonathan Sifuentes M.D. 07/13/2020 8:15 PM
[2020-07-13 20:21] LABS: Appearance Urine Clear (Clear); Bilirubin Urine Negative (Negative); Blood Urine Negative (Negative); Color Urine Yellow; Glucose Urine UA Negative (Negative); Ketones Urine Negative (Negative); Leukocyte Esterase Urine Negative (Negative); Nitrite Urine Negative (Negative); Protein Urine Negative (Negative); Specific Gravity Urine 1.011 (1.000-1.030); Urobilinogen Urine Negative (Negative)
[2020-07-13 20:27] LABS: Albumin Globulin Ratio 0.9 (0.9-2); Alkaline Phosphatase 125 U/L (45-117); Bilirubin,Total 0.7 mg/dl (0.2-1); Total Protein 7.4 gm/dl (6.4-8.2); Troponin I 0.023 ng/ml (0-0.045)
[2020-07-13] MEDS ORDERED: SODIUM CHLORIDE 0.9% 1000ML 500 ML IV ONE (21:29)
--- NOTE | 2020-07-13 22:30 | CT Scan Report ---
CT SCAN OF THE BRAIN WITHOUT IV CONTRAST CLINICAL HISTORY: Weakness. Change in mental status. COMPARISON STUDY: CT of the brain dated 07/19/2019. TECHNIQUE: Unenhanced axial CT scan of the brain is performed from the vertex to the skull base. A do se lowering technique was utilized adhering to the principles of ALARA. CT DOSE: 537.48 mGy.cm FINDINGS: Brain parenchyma: There are age-related involutional changes noting moderate to advanced subcortical and periventricular microangiopathic change. There is no hemorrhage, mass effect, or evidence of acu te territorial ischemia by CT criteria. Price-white matter differentiation is preserved. No extra-axia l fluid collection is seen. Ventricles, sulci, cisterns: Prominent secondary to involutional change. Intracranial vasculature: There is atherosclerotic calcification of the cavernous carotid and vertebr al arteries. Calvarium: Unremarkable. Sinuses and mastoids: The visualized paranasal sinuses are clear. Question previous left mastoid surg [place]. There is trace right mastoid effusion. Orbits: The bony orbits are grossly intact. There are bilateral ocular lens implants. IMPRESSION: There is no hemorrhage, mass effect, or evidence of acute territorial ischemia by CT michele hernandez. ACT 112: Negative or not required by law. Electronically signed by: Jonathan Sifuentes M.D. 07/13/2020 10:29 PM
--- NOTE | 2020-07-13 23:36 | History & Physical Report ---
Date of Service July 13, 2020 Assessment & Plan (1) Weakness: Bryn is a 79-year-old male with past medical history of leukemia in remission, combined systolic and diastolic heart failure, insulin-dependent diabetes mellitus, chronic kidney disease with a baseline creatinine of approxim ately 2.4, hypothyroidism, and history of aortic aneurysm who presents with persistent weakness following an episode of hypoglycemia and ambulatory dysfunction. Weakness, differential includes hypoglycemia and ambulatory dysfunction Acute since 5 PM evening of admission, deviously independently ambulatory although patient notes permanently disabled due to agent orange exposure with CHF and CKD Global, no signs of focal weakness with otherwise normal neuro exam. No signs of stroke pathology CThead: No acute findings Patient with hypoglycemic episode prior to admission, glucose 80. Patient appears near euvolemic, potentially slightly dry. Oral intake, defer IV at this time CK, ESR, CRP pending Potassium normal. Phosphorus pending. Calcium normal. Troponin negative, no chest pain PT/OT pending Follow clinically Hypoglycemia, type 2 diabetes insulin-dependent Patient with an episode of hypoglycemia after taking 20 units of insulin and then delaying dinner at home Improved to 80s at time of ER assessment Home insulin converted to sliding scale, glucose checks AC/at bedtime Diabetic diet History of combined systolic/diastolic congestive heart failure with most recent echo showing improvement of EF to approximately 60% Lungs clear, no increased edema of the legs, patient reports was slightly below his normal weight on his morning pain today Suspect patient is near euvolemic, perhaps slightly volume down Continue home lisinopril, torsemide, metoprolol, Imdur at this time No signs of acute exacerbation History of atrial fibrillation Adequately rate controlled Continue Pradaxa Hypothyroidism Continue levothyroxine alternating 50/75 mcg daily TSH normal on admission TAMIKA CPAP nightly as needed Diet: Diabetic, sodium restricted Disposition: Medical surgical CODE STATUS: Full code, discussed with patient DVT prophylaxis, on Pradaxa as above (2) Hypoglycemia: (3) Fatigue: (4) Idiopathic cardiomyopathy: (5) Moderate aortic regurgitation: (6) Hypothyroidism: (7) TAMIKA (obstructive sleep apnea): (8) Anticoagulant long-term use: (9) HTN (hypertension): (10) Normal coronary arteries: (11) Chronic kidney disease, stage 3: (12) Type 2 diabetes mellitus, with long-term current use of insulin: (13) Diabetic nephropathy associated with type 2 diabetes mellitus: History of Present Illness Primary Care Provider: Errol Julio MD 79-year-old male with past medical history of leukemia in remission, combined systolic and diastolic heart failure, insulin-dependent diabetes mellitus, chronic kidney disease with a baseline creatinine of approximately 2.4, hypothyroidism, and history of aortic aneurysm who presents with persistent weakness following an episode of hypoglycemia and ambulatory dysfunction. He reports that he was in his normal state of health 1 day ago and all of his symptoms are new onset since approximately 5:30 PM, dinnertime. He reports he took 20 units of short acting insulin which is what he would normally take for meals but dinner was delayed for him. Following this he became weak and dizzy with a blood sugar around 60. He improved. Wake juice, but continues to be globally weak. At home assessment he reports he feels "totally shitty" has difficulty eliciting what is wrong other than that he feels weak, fatigued, and "colder than hell. "He denies fever and chills, but feels very cold. Denies shortness of breath, chest pain, chest pressure, palpitations, difficulty breathing, cough, dysuria, abdominal pain, stomachache, diarrhea, constipation. Endorses incontinence at baseline for which he wears depends and which has not changed. He has not noticed any focal weakness, but feels globally weak and tired. Denies sensation change. He notes his eyes are extremely dry, he has not been able to use lubricating. Since being in the hospital which she has been using daily since having cataract surgery this past month. Denies vision change, hearing change. Denies syncope/presyncope, although felt very lightheaded prior to orange juice as noted above. Medical history: Reviewed Surgical history: Reviewed Allergies: Morphine, altered mental status radiation Medications: Reviewed, last took this morning Social: Denies tobacco, alcohol, and recreational drug use. Lives at home with his whom he has been with for 68 years. Reports he is normally independently ambulatory at baseline and does not have home oxygen. He is disabled due to agent orange and a history of leukemia with heart failure. CODE STATUS: Full code, patient reports he would want a trial of compressions and intubation but would not want these measures sustained if it did not appear he had a meaningful chance of recovery following resuscitation. Allergies Allergy/AdvReac Type Severity Reaction Status Date / Time adhesive Allergy Mild RASH Verified 07/13/20 21:42 latex AdvReac Intermediate BLISTERS Verified 07/13/20 21:42 SKIN morphine AdvReac Intermediate DELUSIONS, Verified 07/13/20 21:42 "LOSES TIME" Home Medications Medication Instructions Recorded Confirmed Type blood sugar diagnostic #10 ea 01/20/19 07/08/20 History lancets 33 gauge #100 ea 01/20/19 07/08/20 History multivitamin 1 tab PO DAILY 01/20/19 07/13/20 History cholecalciferol (vitamin D3) 50 2,000 unit PO DAILY #0 03/01/19 07/13/20 History mcg (2,000 unit) capsule Combivent Respimat 2 puff INHALATION Q6H PRN 07/19/19 07/13/20 History acetaminophen [Tylenol Extra 1,000 mg PO Q6H PRN 07/19/19 07/13/20 History Strength] levothyroxine 50 mcg PO Q2D 07/19/19 07/13/20 History lorazepam [Ativan] 0.5 mg PO HS PRN 07/19/19 07/13/20 History meclizine 12.5 mg tablet 12.5 mg PO QID PRN #30 tab 08/08/19 07/13/20 Rx dabigatran etexilate 75 mg capsule 75 mg PO BID #180 cap 10/09/19 07/13/20 Rx allopurinol 300 mg tablet 300 mg PO QAM #90 tab 12/05/19 07/13/20 Rx levothyroxine 75 mcg tablet 75 mcg PO .COMPLEX #45 tab 12/26/19 07/13/20 Rx torsemide 20 mg tablet 60 mg PO BID #540 tab 01/03/20 07/13/20 Rx insulin aspar prot-insulin aspart 20 units SUBCUT BID #36 ml 01/18/20 07/13/20 Rx 100 unit/mL (70-30) subcutaneous pen pen needle, diabetic 31 gauge x #100 ea 01/18/20 07/08/20 Rx 3/" potassium chloride 20 mEq 60 meq PO BID #540 tab 01/18/20 07/13/20 Rx tablet,extended release hydralazine 50 mg tablet 50 mg PO TID #270 tab 03/05/20 07/13/20 Rx isosorbide mononitrate 120 mg 120 mg PO QAM #90 tab 03/05/20 07/13/20 Rx tablet,extended release 24 hr mupirocin 2 % topical ointment 1 applic TOPICAL BID #30 g 04/11/20 07/13/20 Rx metoprolol succinate 200 mg 200 mg PO QAM #90 tab 04/23/20 07/13/20 Rx tablet,extended release 24 hr lisinopril 2.5 mg tablet 2.5 mg PO DAILY #90 tab 05/09/20 07/13/20 Rx Past Med/Surg History Medical History (Updated 07/14/20 @ 10:54 by JOSE Francis) Acute on chronic diastolic (congestive) heart failure Acute systolic heart failure (2018) Allergic rhinitis Arthritis Atrial fibrillation BPH (benign prostatic hyperplasia) Cardiomyopathy Chronic combined systolic and diastolic CHF (congestive heart failure) Claustrophobia COPD (chronic obstructive pulmonary disease) Diabetic nephropathy associated with type 2 diabetes mellitus Hearing deficit 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 YEAR 10 YEARS AGO History of bronchoscopy History of cardiac cath NO STENTS History of colonoscopy History of ear surgery LEFT MASTOIDECTOMY (DEAF IN LEFT EAR) History of left cataract surgery History of tonsillectomy History of tooth extraction History of total knee replacement RT S/P cholecystectomy Family History Son Colon cancer Coronary heart disease Sister Hypothyroidism Lymphoma Stroke Mother Aortic aneurysm Diabetes Father Heart disease Myocardial infarction Other Hypertension Prostate cancer Denies family history of Ovarian cancer Breast cancer Social History Smoking Status: Former smoker Age Started Using Tobacco: 16; Age Quit Using Tobacco: 39; packs per day: 5; Years Smoked: 23; Cigarettes Per Day: 100; Number of Years Since Quit: 39; Second Hand Exposure: No; Hx Alcohol Use: No Hx Substance Use: No Preferred Language: Albanian Communication Ability: Effective Hearing Ability: Use of Hearing Aid Label Stamper Required: No Beliefs That Will Affect Care: None marital status: Current Living Situation: Spouse current occupational status: retired Other Information That Helps Us Care for You: No Feels Safe at Home: Yes Safety Concerns: Feels Safe At This Time caffeine: No Seatbelt Use: always Assistive Devices: Glasses and Hearing Aid - Right Review of Systems Review of Systems: 10 poitn RoS negative except as noted in HPI Physical Exam Physical Exam: General: A&Ox3. NAD. Cooperative. HEENT: Atraumatic, normocephalic. Mild scleral periiritic injection in the setting of recent cataract surgery. Pulm: CTAB A&P. -wheezes, -rales, -rhonchi. Symmetrical chest rise. No increase work of breathing. No respiratory distress. Cardiac: RRR, +sytolic murmur. -rg. Radial pulses intact and symmetrical. Abdominal: Nontender, nondistended, soft. BS present. CRANIAL NERVES: II: Pupils equal and reactive, no relative afferent pupillary defect, no VF cuts III, IV, : EOM intact, no gaze preference or deviation, no nystagmus. V: normal sensation in V1, V2, and V3 segments bilaterally VII: no asymmetry, no nasolabial fold flattening VIII: normal hearing to speech IX, X: normal palatal elevation, no uvular deviation XI:3/5 head turn and 3/5 shoulder shrug bilaterally XII: midline tongue protrusion MOTOR: RUE: 4-/5 Shoulder internal rotation, external rotation, flexion, extension, abduction, adduction 4-/5 Elbow flexion/extension, wrist flexion/extension 4-/5 data warehouse manager strength, finger flexion/extension, interosseus LUE: 4-/5 Shoulder internal rotation, external rotation, flexion, extension, abduction, adduction 4-/5 Elbow flexion/extension, wrist flexion/extension 4-/5 data warehouse manager strength, finger flexion/extension, interosseus RLE: 4-/5 to hip flexion/extension, knee flexion/extension, ankle dorsiflexion/plantarflexion LLE: 4-/5 to hip flexion/extension, knee flexion/extension, ankle dorsiflexion/plantarflexion SENSORY: Normal to touch in upper and lower extremities without deficit or asymmetry Results & Data Results & Data ([facility]) Vital Signs (Past 12 Hours) Vital Signs Temp Pulse Resp BP Pulse Ox 07/13/20 23:07 36.3 C L 07/13/20 22:31 70 22 142/76 H 98 07/13/20 22:00 61 16 131/73 97 07/13/20 21:30 63 23 123/61 95 07/13/20 21:00 64 24 109/57 L 94 07/13/20 20:30 60 21 107/55 L 92 07/13/20 20:00 61 18 105/54 L 94 07/13/20 19:40 36.4 C L 63 16 112/60 96 07/13/20 19:38 69 20 112/60 98 07/13/20 19:30 96 Supervising Physician Co-Signing Physician Notes Patient seen and examined, chart reviewed, case discussed with Dr. Aldana and I agree with his assessment and plan. Briefly, patient is a pleasant 79yo C male presenting with diffuse weakness following an episode of hypoglycemia. Patient administered his insulin and had a delay in meal causing him to drop his blood sugars to 60's. He then developed weakness of his legs and arms. No additional complaints at this time. On exam he is afebrile, HD stable, NAD, resting comfortably in bed Skin - no rash HEENT - NC/AT, PERR, EOMI, Neck supple Heart - +S1/S2, regular, no m/r/g Lungs - CTA Abd - +BS, soft, NT/ND Ext - No edema Neuro - mild weakness of proximal muscles of arms - abduction and adduction, MS intact in legs bilaterally Labs and images reviewed. Assessment/Plan - fairly acut onset of proximal muscle weakness in setting of brief relative hypoglycemia. ?secondary to low blood sugar - would be strange presentation for inflammatory or rhuematological issue. -Check ESR, CRP, CK -PT/OT -Monitor blood sugars -Remainder of plan as above Resident Activity Tracking Resident Involvement: Resident Care Provided Care Provided: Adult Hospital Medicine (1) Fatigue Fatigue type: unspecified Qualified Code(s): R53.83 - Other fatigue (2) Hypothyroidism Hypothyroidism type: acquired Qualified Code(s): E03.9 - Hypothyroidism, unspecified
[2020-07-13] MEDS ORDERED: ARTIFICIAL TEARS OP STA (23:44)
[2020-07-13] MEDS ORDERED: ARTIFICIAL TEARS OP OINT 3.5 GM TUBE OP PRN (23:44)
[2020-07-14] MEDS ORDERED: LORazepam 0.5 MG TAB PO PRN (01:34)
[2020-07-14] MEDS ORDERED: GLUCOSE 10 TABS/TUBE PO PRN (01:34)
[2020-07-14] MEDS ORDERED: ACETAMINOPHEN 325 MG TAB PO PRN (01:34)
[2020-07-14] MEDS ORDERED: DEXTROSE 50% 50 ML SYRINGE IV PRN (01:34)
[2020-07-14] MEDS ORDERED: CARBOHYDRATES FOR HYPOGLYCEMIA PO PRN (01:34)
[2020-07-14] MEDS ORDERED: GLUCAGON FOR INJ 1 MG VIAL SQ PRN (01:34)
[2020-07-14] MEDS ORDERED: GLUCOSE 40% GEL 15 GM TUBE PO PRN (01:34)
[2020-07-14 01:51] LABS: Phosphorus 3.5 mg/dl (2.5-4.9)
[2020-07-14] MEDS ORDERED: LEVOTHYROXINE SODIUM 50 MCG TABLET PO SCH (06:30)
[2020-07-14 06:36] LABS: Basophils # (auto) 0.01 K/uL (0-0.2); Basophils % (auto) 0.1 %; Eosinophils # (auto) 0.18 K/uL (0-0.5); Eosinophils % (auto) 2.4 %; Hematocrit (blood only) 43.8 % (42-52); Hemoglobin 13.8 g/dL (14.0-18.0); Immature Granulocytes # (auto) 0.09 K/uL (0.00-0.02); Immature Granulocytes % (auto) 1.2 %; Lymphocytes # (auto) 1.09 K/uL (1.2-3.4); Lymphocytes % (auto) 14.3 %; Mean Corpuscular Hemoglobin 31.4 pg (25-34); Mean Corpuscular Hgb Conc 31.5 g/dL (32-36); Mean Corpuscular Volume 99.8 fL (80-100); Mean Platelet Volume 11.2 fL (7.4-10.4); Monocytes # (auto) 0.77 K/uL (0.11-0.59); Monocytes % (auto) 10.1 %; Neutrophils % (auto) 71.9 %; Platelet Count 173 K/uL (130-400); RDW Coefficient of Variation 14.2 % (11.5-14.5); RDW Standard Deviation 51.4 fL (36.4-46.3); Red Blood Count 4.39 M/uL (4.7-6.1); White Blood Count 7.64 K/uL (4.8-10.8)
[2020-07-14 07:06] LABS: Calcium 8.5 mg/dl (8.5-10.1); Creatinine Clr Calc Pharmacy 37.5 ml/min; Est GFR (African American) 35.1; Est GFR (Non-African American) 30.3; Potassium 3.9 mmol/L (3.5-5.1)
[2020-07-14 07:09] LABS: C Reactive Protein 0.55 mg/dl (0-0.29)
[2020-07-14] MEDS: INSULIN ASPART 100 UNITS/ML 3 ML PEN SC SCH ×4 (08:43→21:14)
[2020-07-14] MEDS: POTASSIUM CHLORIDE CRTAB 20 MEQ TABCR PO SCH ×2 (08:44→17:47)
[2020-07-14] MEDS: allopurinoL 300 MG TAB PO SCH (08:44)
[2020-07-14] MEDS: TORSEMIDE 20 MG TAB PO SCH ×2 (08:45→17:47)
[2020-07-14] MEDS: lisinopril 2.5 MG TAB PO SCH (08:45)
[2020-07-14] MEDS: METOPROLOL SUCC 50MG EXT REL TAB PO SCH (08:45)
[2020-07-14] MEDS: DABIGATRAN ETEXILATE 75 MG CAP PO SCH ×2 (08:45→21:14)
[2020-07-14] MEDS: ISOSORBIDE MONO EXTENDED REL 60 MG TABCR PO SCH (08:46)
--- NOTE | 2020-07-14 10:56 | Hospitalist Progress Note ---
Date of Service July 14, 2020 Assessment & Plan (1) Weakness: Bryn is a 79-year-old male with past medical history of leukemia in remission, combined systolic and diastolic heart failure, insulin-dependent diabetes mellitus, chronic kidney disease with a baseline creatinine of approximately 2.4, hypothyroidism, and history of aortic aneurysm who presents with persistent weakness following an episode of hypoglycemia and ambulatory dysfunction. Weakness improved this morning. Patient able to ambulate with PT. OT eval pending. Weakness, differential includes hypoglycemia and ambulatory dysfunction Acute since 5 PM evening of admission, deviously independently ambulatory although patient notes permanently disabled due to agent orange exposure with CHF and CKD Global, no signs of focal weakness with otherwise normal neuro exam. No signs of stroke pathology CThead: No acute findings Patient with hypoglycemic episode prior to admission; now resolved. Patient appears near euvolemic, potentially slightly dry. CRP elevated at 0.55. ESR elevated at 42. CK normal at 88. Potassium normal. Phosphorus normal. Calcium normal. - AST elevated at 51. No abdominal findings on exam. Patient denies n/v. CT of the abd/pelvis from 08/2018 showed micronodular contouring implying possible underlying fibrosis and hepatic steatosis. Patient denies alcohol use. Will repeat LFTs in AM. Troponin negative, no chest pain PT/OT on board. Continue to monitor. Consider discharge tomorrow if continuing to do well and labs stable. (2) Hypoglycemia: Patient with an episode of hypoglycemia after taking 20 units of insulin and then delaying dinner at home. Improved upon admission. Continue SS insulin and glucose checks AC/HS. (3) Fatigue: (4) Idiopathic cardiomyopathy: (5) Moderate aortic regurgitation: (6) Hypothyroidism: TSH 2.650 on admission. Continue levothyroxine alternating 50/75mcg daily. (7) TAMIKA (obstructive sleep apnea): Continue CPAP nightly. (8) Anticoagulant long-term use: (9) HTN (hypertension): BP elevated by stable at 145/79. Patient is asymptomatic. Continue lisinopril and metoprolol. Continue to monitor. (10) Normal coronary arteries: (11) Chronic kidney disease, stage 3: Creatinine at baseline at 2.04. (12) Type 2 diabetes mellitus, with long-term current use of insulin: Hypoglycemia resolved. Continue SS insulin and glucose checks AC/HS. (13) Diabetic nephropathy associated with type 2 diabetes mellitus: Patient would benefit from diabetic footwear. This can be ordered as an outpatient per primary care. (14) DVT prophylaxis: On Pradaxa. (15) Permanent atrial fibrillation: Rate controlled. Continue Pradaxa. (16) Chronic obstructive pulmonary disease: Worsening SOB with walking shorter distances. Lungs clear to auscultation. Does not appear volume overloaded. Down 4.6kg since last evening. Chest x-ray with no acute cardiopulmonary abnormality. Will order Combivent for PRN use q6hrs for SOB or wheezing. (17) Chronic combined systolic and diastolic CHF (congestive heart failure): EF ~60% Lungs clear to auscultation. Down 4.6kg since last evening. Continue home lisinopril, torsemide, metoprolol, and Imdur. Continue diabetic diet with sodium restriction. Admission and Anticipated Discharge Date Admission Date: July 14, 2020 Subjective 79-year-old male admitted for weakness possibly secondary to hypoglycemic episode. Patient reports he is feeling much better today. He was able to get up and walk to the bathroom with physical therapy. He did note some increased shortness of breath with walking to the bathroom. He reports a history of COPD and obstructive sleep apnea. Combivent recorded on his home med list, however he reports he has not had to use this for months. He reports he usually gets out of breath with walking approximately 100 feet. Chest x-ray on admission showed marked cardiomegaly with atelectasis noted in the lung bases. He is pending an OT eval today as well. Patient denies any nausea or vomiting, but does admit to an episode of stool incontinence after eating his breakfast today. He does note baseline urinary incontinence, but has no real history of stool incontinence. Review of Systems Constitutional: no fever and no chills Eyes: no worsening vision Ear, Nose, Mouth, Throat: no dizziness Respiratory: no dyspnea Cardiovascular: no chest pain Gastrointestinal: no abdominal pain, no nausea and no vomiting Psychiatric: no confusion Physical Exam Physical Exam: Temp Pulse Resp BP Pulse Ox 36.4 C L 72 20 145/79 H 95 07/14/20 08:37 07/14/20 08:37 07/14/20 08:37 07/14/20 08:37 07/14/20 08:37 Patient is afebrile. He is hypertensive at 145/79, but is asymptomatic. Constitutional: + obese; no acute distress ENMT: Ears: no hearing impairment Neck: trachea midline Thyroid: normal thyroid Respiratory: normal respiratory effort, lungs clear to auscultation Cardiovascular: RRR, no murmur, no edema Gastrointestinal (Abdomen): Inspection/Auscultation: normal bowel sounds Percussion/Palpation: abdomen soft; abdomen nontender Psychiatric: A+Ox3, euthymic affect Results & Data Results & Data ([facility]) Vital Signs (Past 12 Hours) Vital Signs Temp Pulse Pulse Resp BP BP Pulse Ox 07/14/20 08:37 36.4 C L 72 20 145/79 H 95 07/14/20 01:34 36.6 C 66 114/70 92 07/14/20 01:26 35.7 C L 18 146/78 H 95 07/14/20 00:01 72 19 92 07/14/20 00:00 73 19 129/66 95 07/13/20 23:31 75 07/13/20 23:30 72 19 149/63 H 97 07/13/20 23:07 36.3 C L 07/13/20 23:00 67 16 129/65 95 PG Care Time/CCT Total # of Minutes Spent Total Time Spent with Patient: Total time spent is greater than 50% in coordination of care (as documented) at patient's floor/unit and/or counseling patient: C[place] [address] Subseq Obs Care Lvl 2 Patient Type Established Medical Decision Making Moderate Complexity Diagnoses Weakness R53.1 Hypoglycemia E16.2 Fatigue R53.83 Fatigue type: unspecified Idiopathic cardiomyopathy I42.8 Moderate aortic regurgitation I35.1 Hypothyroidism E03.9 Hypothyroidism type: acquired TAMIKA (obstructive sleep apnea) G47.33 Anticoagulant long-term use Z79.01 HTN (hypertension) I10 Normal coronary arteries Z03.89 Chronic kidney disease, stage 3 N18.3 Type 2 diabetes mellitus, with long-term current use of insulin E11.9; Z79.4 Diabetic nephropathy associated with type 2 diabetes mellitus E11.21 DVT prophylaxis Z29.9 Permanent atrial fibrillation I48.2 Chronic obstructive pulmonary disease J44.9 Chronic combined systolic and diastolic CHF (congestive heart failure) I50.42 (1) Fatigue Fatigue type: unspecified Qualified Code(s): R53.83 - Other fatigue (2) Hypothyroidism Hypothyroidism type: acquired Qualified Code(s): E03.9 - Hypothyroidism, unspecified
[2020-07-14] MEDS ORDERED: IPRATROPIUM BROMIDE HFA INHALER INH PRN (10:57)
[2020-07-14] MEDS ORDERED: ALBUTEROL HFA 8 GM INHALER INH PRN (10:57)
[2020-07-14] MEDS ORDERED: IPRATROPIUM BROMIDE/ALBUTEROL respimat INH INH PRN (10:57)
--- NOTE | 2020-07-14 13:10 | Electrocardiogram Report ---
Test Reason : Blood Pressure : / mmHG Vent. Rate : 067 BPM Atrial Rate : 202 BPM P-R Int : 000 ms QRS Dur : 100 ms QT Int : 444 ms P-R-T Axes : 000 -71 060 degrees QTc Int : 469 ms Atrial fibrillation Left axis deviation Incomplete right bundle branch block Possible Anterior infarct (cited on or before 24-MAR-2018) Abnormal ECG When compared with ECG of 19-JUL-2019 06:36, No significant change was found Confirmed by Lucien Thompson ([id number]) on 07/14/2020 1:10:25 PM Referred By: REFERRED SELF Confirmed By:Triston Thompson
--- NOTE | 2020-07-14 17:08 | Billing Data ---
Date of Service July 14, 2020 Coding Level of Care Code 39465 OBS Care - Level 3
[2020-07-15] MEDS ORDERED: LEVOTHYROXINE SODIUM 75 MCG TABLET PO SCH (06:30)
[2020-07-15 07:58] LABS: Hematocrit (blood only) 42.5 % (42-52); Hemoglobin 13.4 g/dL (14.0-18.0); Mean Corpuscular Hemoglobin 31.8 pg (25-34); Mean Corpuscular Hgb Conc 31.5 g/dL (32-36); Mean Corpuscular Volume 100.7 fL (80-100); Mean Platelet Volume 11.5 fL (7.4-10.4); Platelet Count 150 K/uL (130-400); RDW Coefficient of Variation 14.2 % (11.5-14.5); RDW Standard Deviation 51.6 fL (36.4-46.3); Red Blood Count 4.22 M/uL (4.7-6.1); White Blood Count 6.11 K/uL (4.8-10.8)
[2020-07-15 08:02] VITALS: BP 137/76; PULSE 70; TEMP 97.7; O2SAT 92
[2020-07-15 08:26] LABS: Albumin Level 3.1 gm/dl (3.4-5.0); BUN Creatinine Ratio 31.3 (10-20); Bilirubin Direct 0.2 mg/dl (0-0.2); Creatinine Clr Calc Pharmacy 31.3 ml/min; Est GFR (African American) 28.2; Est GFR (Non-African American) 24.3; Magnesium 2.3 mg/dl (1.8-2.4); Potassium 3.8 mmol/L (3.5-5.1)
[2020-07-15 08:29] LABS: Albumin Globulin Ratio 0.9 (0.9-2); Bilirubin,Total 0.9 mg/dl (0.2-1); Globulin 3.6 gm/dl (2.5-4.0); Total Protein 6.7 gm/dl (6.4-8.2)
[2020-07-15] MEDS: INSULIN ASPART 100 UNITS/ML 3 ML PEN SC SCH ×2 (08:47→12:34)
[2020-07-15] MEDS: TORSEMIDE 20 MG TAB PO SCH (08:49)
[2020-07-15] MEDS: lisinopril 2.5 MG TAB PO SCH (08:50)
[2020-07-15] MEDS: METOPROLOL SUCC 50MG EXT REL TAB PO SCH (08:50)
[2020-07-15] MEDS: allopurinoL 300 MG TAB PO SCH (08:51)
[2020-07-15] MEDS: DABIGATRAN ETEXILATE 75 MG CAP PO SCH (08:51)
[2020-07-15] MEDS: ISOSORBIDE MONO EXTENDED REL 60 MG TABCR PO SCH (08:52)
[2020-07-15] MEDS: POTASSIUM CHLORIDE CRTAB 20 MEQ TABCR PO SCH (08:52)
--- NOTE | 2020-07-22 15:45 | Discharge Summary ---
Date of Service July 15, 2020 Admission HPI Per Admitting Provider 79-year-old male with past medical history of leukemia in remission, combined systolic and diastolic heart failure, insulin-dependent diabetes mellitus, chronic kidney disease with a baseline creatinine of approximately 2.4, hypothyroidism, and history of aortic aneurysm who presents with persistent weakness following an episode of hypoglycemia and ambulatory dysfunction. He reports that he was in his normal state of health 1 day ago and all of his symptoms are new onset since approximately 5:30 PM, dinnertime. He reports he took 20 units of short acting insulin which is what he would normally take for meals but dinner was delayed for him. Following this he became weak and dizzy with a blood sugar around 60. He improved. [place] juice, but continues to be globally weak. At home assessment he reports he feels "totally shitty" has difficulty eliciting what is wrong other than that he feels weak, fatigued, and "colder than hell. "He denies fever and chills, but feels very cold. Denies shortness of breath, chest pain, chest pressure, palpitations, difficulty breathing, cough, dysuria, abdominal pain, stomachache, diarrhea, constipation. Endorses incontinence at baseline for which he wears depends and which has not changed. He has not noticed any focal weakness, but feels globally weak and tired. Denies sensation change. He notes his eyes are extremely dry, he has not been able to use lubricating. Since being in the hospital which she has been using daily since having cataract surgery this past month. Denies vision change, hearing change. Denies syncope/presyncope, although felt very lightheaded prior to orange juice as noted above. Medical history: Reviewed Surgical history: Reviewed Allergies: Morphine, altered mental status radiation Medications: Reviewed, last took this morning Social: Denies tobacco, alcohol, and recreational drug use. Lives at home with his whom he has been with for 68 years. Reports he is normally independently ambulatory at baseline and does not have home oxygen. He is disabled due to agent orange and a history of leukemia with heart failure. CODE STATUS: Full code, patient reports he would want a trial of compressions and intubation but would not want these measures sustained if it did not appear he had a meaningful chance of recovery following resuscitation. Principal Diagnosis weakness Discharge Exam Patient is afebrile. Constitutional: + obese; no acute distress ENMT: Ears: no hearing impairment Neck: trachea midline Thyroid: normal thyroid Respiratory: normal respiratory effort, lungs clear to auscultation Cardiovascular: RRR, no murmur, no edema Gastrointestinal (Abdomen): Inspection/Auscultation: normal bowel sounds Percussion/Palpation: abdomen soft; abdomen nontender Psychiatric: A+Ox3, euthymic affect Discharge Data Allergies Allergy/AdvReac Type Severity Reaction Status Date / Time adhesive Allergy Mild RASH Verified 07/13/20 21:42 latex AdvReac Intermediate BLISTERS Verified 07/13/20 21:42 SKIN morphine AdvReac Intermediate DELUSIONS, Verified 07/13/20 21:42 "LOSES TIME" Consultations 07/14/20 00:24 ED Decision to Admit Stat Ordered Studies 07/13/20 21:20 CT head/brain wo con Stat Hospital Course (1) Weakness: Bryn is a 79-year-old male with past medical history of leukemia in remission, combined systolic and diastolic heart failure, insulin-dependent diabetes mellitus, chronic kidney disease with a baseline creatinine of approximately 2.4, hypothyroidism, and history of aortic aneurysm who presents with persistent weakness following an episode of hypoglycemia and ambulatory dysfunction. Weakness improved this morning. Patient able to ambulate with PT. OT eval pending. Weakness, differential includes hypoglycemia and ambulatory dysfunction Acute since 5 PM evening of admission, deviously independently ambulatory although patient notes permanently disabled due to agent orange exposure with CHF and CKD Global, no signs of focal weakness with otherwise normal neuro exam. No signs of stroke pathology CThead: No acute findings Patient with hypoglycemic episode prior to admission; now resolved. Patient appears near euvolemic, potentially slightly dry. CRP elevated at 0.55. ESR elevated at 42. CK normal at 88. Potassium normal. Phosphorus normal. Calcium normal. - AST elevated at 51. No abdominal findings on exam. Patient denies n/v. CT of the abd/pelvis from 08/2018 showed micronodular contouring implying possible underlying fibrosis and hepatic steatosis. Patient denies alcohol use. LFTs improved on day of discharge. Troponin negative, no chest pain PT/OT on board: recommended home Patient continued to improve on 07/15 Patient was agreeable to discharge. (2) Hypoglycemia: Patient with an episode of hypoglycemia after taking 20 units of insulin and then delaying dinner at home. Improved upon admission. Continue SS insulin and glucose checks AC/HS. (3) Fatigue: (4) Idiopathic cardiomyopathy: (5) Moderate aortic regurgitation: (6) Hypothyroidism: TSH 2.650 on admission. Continue levothyroxine alternating 50/75mcg daily. (7) TAMIKA (obstructive sleep apnea): Continue CPAP nightly. (8) Anticoagulant long-term use: (9) HTN (hypertension): BP elevated by stable at 145/79. Patient is asymptomatic. Continue lisinopril and metoprolol. Continue to monitor. (10) Normal coronary arteries: (11) Chronic kidney disease, stage 3: Creatinine at baseline at 2.04. (12) Type 2 diabetes mellitus, with long-term current use of insulin: Hypoglycemia resolved. Continue SS insulin and glucose checks AC/HS. (13) Diabetic nephropathy associated with type 2 diabetes mellitus: Patient would benefit from diabetic footwear. This can be ordered as an outpatient per primary care. (14) DVT prophylaxis: On Pradaxa. (15) Permanent atrial fibrillation: Rate controlled. Continue Pradaxa. (16) Chronic obstructive pulmonary disease: Worsening SOB with walking shorter distances. Lungs clear to auscultation. Does not appear volume overloaded. Down 4.6kg since last evening. Chest x-ray with no acute cardiopulmonary abnormality. Will order Combivent for PRN use q6hrs for SOB or wheezing. (17) Chronic combined systolic and diastolic CHF (congestive heart failure): EF ~60% Lungs clear to auscultation. Down 4.6kg since last evening. Continue home lisinopril, torsemide, metoprolol, and Imdur. Continue diabetic diet with sodium restriction. Total Time Total Time Spent Total Time Spent (In Minutes): 32 Total Time Includes: Examination of the Patient, Discharge Planning and Medication Reconciliation Discharge Plan Discharge Items Patient Disposition: Home - Self-Care Reason For Visit: WEAKNESS, HYPOGLYCEMIA Discharge Diagnosis: weakness, hypoglycemia Condition on Discharge: Good Activity: Resume your previous activity Non-emergency contact: Primary Care Provider Call non-emergency contact if: you have any medication questions Follow-up/Referrals: Errol Julio III, MD [Primary Care Provider] - 07/23/20 11:30 am (YOUR APPOINTMENT WILL BE WITH GERALD) Diet: Carb Consistent or DM2 Addtl Attending Provider Instructions: You have been hospitalized for an acute medical problem. During your stay at [facility], we have made an effort to correct the problem that brought you to the hospital while keeping you as comfortable as possible. Medications were used to bring your condition under control and your discharge instructions will include directions for any medications you should take after leaving the hospital. Please make sure you see your Primary Care Provider as part of your follow up plan. Pending Studies at Discharge: No Stand-Alone Forms: [facility], Smoking Cessation Medications and DC Order Prescriptions: Continued cholecalciferol (vitamin D3) 2,000 unit capsule 2,000 unit PO DAILY Qty: 0 RF: 0 dabigatran etexilate 75 mg capsule 75 mg PO BID Qty: 180 RF: 3 allopurinol 300 mg tablet 300 mg PO QAM Qty: 90 RF: 3 levothyroxine 75 mcg tablet 75 mcg PO .COMPLEX Qty: 45 RF: 1 torsemide 20 mg tablet 60 mg PO BID Qty: 540 RF: 3 metoprolol succinate 200 mg tablet extended release 24 hr 200 mg PO QAM Qty: 90 RF: 1 lisinopril 2.5 mg tablet 2.5 mg PO DAILY Qty: 90 RF: 3 hydralazine 50 mg tablet 50 mg PO TID Qty: 270 RF: 3 isosorbide mononitrate 120 mg tablet extended release 24 hr 120 mg PO QAM Qty: 90 RF: 3 mupirocin 2 % ointment 1 applic topical BID Qty: 30 RF: 1 multivitamin [Daily Multi-Vitamin] tablet 1 tab PO DAILY RF: 0 (DME) OneTouch Verio test strips strip See Dose Instructions .ROUTE .MEDSUPPLY Qty: 10 RF: 0 (DME) lancets [OneTouch Delica Lancets] 33 gauge misc See Dose Instructions .ROUTE .MEDSUPPLY Qty: 100 RF: 0 potassium chloride 20 mEq tablet extended release 60 meq PO BID Qty: 540 RF: 3 insulin asp prt-insulin aspart 100 unit/mL (70-30) insulin pen 20 units subcut BID Qty: 36 RF: 11 (DME) pen needle, diabetic [BD Ultra-Fine Mini Pen Needle] 31 gauge x 3/16" needle See Dose Instructions .ROUTE .MEDSUPPLY Qty: 100 RF: 3 meclizine 12.5 mg tablet 12.5 mg PO QID PRN (Reason: dizziness) Qty: 30 RF: 1 levothyroxine 50 mcg Tablet 50 mcg PO Q2D RF: 0 acetaminophen [Tylenol Extra Strength] 500 mg Tablet 1,000 mg PO Q6H PRN (Reason: pain/fever) RF: 0 lorazepam [Ativan] 0.5 mg Tablet 0.5 mg PO HS PRN (Reason: Sleep) RF: 0 Combivent Respimat 20-100 mcg/actuation Mist 2 puff INHALATION Q6H PRN (Reason: sob/wheezing) RF: 0 Discharge Orders: Discharge Order (Routine); Ordered 07/15/20 Ordered By: Dilan Guevara Admission Data Admit Date/Time: 07/14/20 00:03 Attending Provider: Dilan Guevara Admit Provider: Irving Aldana Primary Care Provider: Errol Julio III Other Providers: Sondra Coon Other Interventions: Discharge Summary Assessment (RN) Last Done: 07/15/20 13:56 Coding Level of Care Code 35382 OBS Care - Discharge Diagnoses Weakness R53.1 Hypoglycemia E16.2 Fatigue R53.83 Fatigue type: unspecified Idiopathic cardiomyopathy I42.8 Moderate aortic regurgitation I35.1 Hypothyroidism E03.9 Hypothyroidism type: acquired TAMIKA (obstructive sleep apnea) G47.33 Anticoagulant long-term use Z79.01 HTN (hypertension) I10 Normal coronary arteries Z03.89 Chronic kidney disease, stage 3 N18.3 Type 2 diabetes mellitus, with long-term current use of insulin E11.9; Z79.4 Diabetic nephropathy associated with type 2 diabetes mellitus E11.21 DVT prophylaxis Z29.9 Permanent atrial fibrillation I48.2 Chronic obstructive pulmonary disease J44.9 Chronic combined systolic and diastolic CHF (congestive heart failure) I50.42
== END 2020-07-15 15:44 | disposition home or self-care (01) ==
LOC: ED 19:31 → 3N 19:31 → SUATTDRO 07-14 00:03 → 3N 07-14 01:02
DX: N18.30 Chronic kidney disease, stage 3 unspecified; E66.9 Obesity, unspecified; E11.22 Type 2 diabetes mellitus with diabetic chronic kidney disease; Z88.5 Allergy status to narcotic agent; J44.9 Chronic obstructive pulmonary disease, unspecified; Z82.49 Family history of ischemic heart disease and other diseases of the circulatory system; Z68.35 Body mass index [BMI] 35.0-35.9, adult; E11.21 Type 2 diabetes mellitus with diabetic nephropathy; I11.0 Hypertensive heart disease with heart failure; I50.42 Chronic combined systolic (congestive) and diastolic (congestive) heart failure; R53.83 Other fatigue; E16.2 Hypoglycemia, unspecified; Z79.01 Long term (current) use of anticoagulants; Z79.4 Long term (current) use of insulin; E03.9 Hypothyroidism, unspecified; I42.9 Cardiomyopathy, unspecified; Z91.040 Latex allergy status; Z79.890 Hormone replacement therapy; G47.33 Obstructive sleep apnea (adult) (pediatric); I35.1 Nonrheumatic aortic (valve) insufficiency; E86.0 Dehydration; E55.9 Vitamin D deficiency, unspecified; R53.1 Weakness; I48.21 Permanent atrial fibrillation

== ENCOUNTER 2021-12-28 20:38 | Inpatient (IN) ==
--- NOTE | 2021-12-28 21:13 | Emergency Department Note ---
History of Present Illness General Chief complaint: Ankle Pain Stated complaint: SORE ON ANKLE Time Seen by Provider: 12/28/21 20:58 Source: patient History of Present Illness Provider complaint: Right leg pain Onset (ago): week(s) Location: lower extremity and right Pain Consistency: + constant Maximum Pain Intensity: 7 Quality: + aching Exacerbated By: + other (Palpation) Associated symptoms: + fever/chills; no chest pain, no cough, no nausea/vomiting or no shortness of breath This is an 81-year-old male who presents with right leg pain for over a week. The patient was diagnosed with cellulitis and placed on Keflex on December 22. He followed up with his nurse practitioner who stated that they would refer him to the wound care clinic. He is here today because he has increased swelling and redness to the right lower extremity. It is extending into the ankle. He states that the swelling is much increased. He has pain to that area as well. He states he has had tactile fevers and chills. He is not vomiting. He denies any cough or cold symptoms, chest pain, abdominal pain or diarrhea. He states that he has chronic shortness of breath from COPD and CHF which is unchanged. He states that he is on a diuretic but has been urinating less recently. His states that the red area sometimes gets bigger and then smaller again. Home Medications Medication Instructions Recorded Confirmed Type multivitamin (Daily Multi-Vitamin) 1 tab PO DAILY 01/20/19 12/28/21 History cholecalciferol (vitamin D3) 50 2,000 unit PO DAILY #0 03/01/19 12/28/21 History mcg (2,000 unit) capsule acetaminophen 500 mg tablet 1,000 mg PO Q6H PRN 07/19/19 12/28/21 History (Tylenol Extra Strength) alfuzosin 10 mg tablet,extended 10 mg PO DAILY #30 tab 12/09/20 12/28/21 Rx release 24 hr (Uroxatral) metoprolol succinate 200 mg 200 mg PO QAM #90 tab 02/01/21 12/28/21 Rx tablet,extended release 24 hr One Touch Ava Meter Kit #1 ea 02/13/21 11/27/21 Rx pen needle, diabetic 31 gauge x #100 ea 02/13/21 11/27/21 Rx 3/16" (BD Ultra-Fine Mini Pen Needle) ipratropium 20 mcg-albuterol 100 2 puff INHALATION Q6H PRN #4 g 03/05/21 12/28/21 Rx mcg/actuation mist for inhalation (Combivent Respimat) metolazone 5 mg tablet 5 mg PO DAILY #30 tab 03/20/21 12/28/21 Rx lancets 33 gauge ([facility] #[facility] ea 04/02/21 11/27/21 Rx Lancets) levothyroxine 50 mcg tablet 50 mcg PO .COMPLEX #45 tab 04/02/21 12/28/21 Rx levothyroxine 75 mcg tablet 75 mcg PO .COMPLEX #45 tab 04/02/21 12/28/21 Rx lisinopril 2.5 mg tablet 2.5 mg PO DAILY #90 tab 04/02/21 12/28/21 Rx isosorbide mononitrate 120 mg 120 mg PO QAM #90 tab 04/03/21 12/28/21 Rx tablet,extended release 24 hr potassium chloride 20 mEq 60 meq PO BID #540 tab 08/01/21 12/28/21 Rx tablet,extended release blood sugar diagnostic ([facility] e[facility] 08/12/21 11/27/21 Rx Verio test strips) dabigatran etexilate 75 mg capsule 75 mg PO BID #180 cap 09/08/21 12/28/21 Rx insulin aspar prot-insulin aspart 15 unit SUBCUT BID ml 10/06/21 12/28/21 History 100 unit/mL (70-30) subcutaneous pen allopurinol 300 mg tablet 300 mg PO QAM #90 tab 10/10/21 12/28/21 Rx hydralazine 50 mg tablet 50 mg PO TID #270 tab 10/14/21 12/28/21 Rx gabapentin 100 mg capsule 100 mg PO TID 12/09/21 12/28/21 History torsemide 20 mg tablet 80 mg PO BID tab 12/09/21 12/28/21 History Allergies Allergy/AdvReac Type Severity Reaction Status Date / Time adhesive Allergy Mild RASH Verified 12/28/21 21:10 latex AdvReac Intermediate BLISTERS Verified 12/28/21 21:10 SKIN morphine AdvReac Intermediate DELUSIONS, Verified 12/28/21 21:10 "LOSES TIME" Past Med/Surg History Medical History Allergic rhinitis Arthritis Atrial fibrillation ON PRADAXA BPH (benign prostatic hyperplasia) BPH with obstruction/lower urinary tract symptoms Cardiomyopathy Chronic combined systolic and diastolic CHF (congestive heart failure) Claustrophobia Congestive heart failure [facility] COPD (chronic obstructive pulmonary disease) Diabetic nephropathy associated with type 2 diabetes mellitus Hearing deficit 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 YEAR 10 YEARS AGO History of bronchoscopy History of cardiac cath NO STENTS History of cataract surgery rt/left History of colonoscopy History of ear surgery LEFT MASTOIDECTOMY (DEAF IN LEFT EAR) History of tonsillectomy History of tooth extraction History of total knee replacement RT S/P cholecystectomy Family History Son Colon cancer Coronary heart disease Sister Hypothyroidism Lymphoma Stroke Mother Aortic aneurysm Diabetes Father Heart disease Myocardial infarction Sister Liver problem Other Hypertension Denies family history of Ovarian cancer Prostate cancer Breast cancer Social History Smoking Status: Never smoker Tobacco Type: Cigarettes Age Started Using Tobacco: 16; Age Quit Using Tobacco: 39; packs per day: 5; Years Smoked: 23; Number of Years Since Quit: 39; Second Hand Exposure: No; Hx Alcohol Use: No Hx Substance Use: No Preferred Language: Belarusian Communication Ability: Effective Visual Impairment: No Limitations Hearing Ability: Use of Hearing Aid Hand Candy Molder Required: No Beliefs That Will Affect Care: None marital status: Current Living Situation: Spouse current occupational status: retired 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 and A total of 10 systems reviewed and were otherwise negative Physical Exam Vital Signs Vital Signs - 24 hr 12/28/21 20:41 12/28/21 21:12 Temperature 36.7 C 36.6 C Temperature Source Temporal Artery Scan Oral Pulse Rate 71 Pulse Rate [Apical] 76 Pulse Rhythm [Apical] Regular Pulse Strength [Apical] Normal Respiratory Rate 20 18 Respiratory Effort / Characteristics Non-Labored Spontaneous Respiratory Depth Normal Blood Pressure 119/60 Blood Pressure [Left Arm] 123/58 L Blood Pressure Mean 79 Blood Pressure Mean [Left Arm] 79 Blood Pressure Position Sitting Blood Pressure Position [Left Arm] Lying Pulse Oximetry 96 96 Oxygen Delivery Method Room Air Room Air Sepsis Recent Fever Within 48 Hours No Sepsis New/Unexplained Change in Mental Status N/A Sepsis Action Taken by Nursing No Action Required Constitutional: Vital signs reviewed. Eyes: Pupils are equal round reactive to light. Conjunctiva are noninjected. ENT: Pharynx is clear without erythema or exudate. Mucous membranes are moist. Neck supple without meningeal signs. Respiratory: Clear to auscultation bilaterally. Breath sounds are equal bilaterally. Cardiovascular: Regular rate and rhythm. No rubs or gallops. GI: Soft, nondistended and nontender. Bowel sounds are present. Musculoskeletal: Bilateral pitting edema to lower extremities greater on the right side. There is erythema and tenderness to the posterior calf over the inferior portion. No significant increased warmth. No tenderness to the joint line of the right ankle or any pain with range of motion. Distal capillary refill is less than 2 seconds. Integumentary: No cyanosis. or jaundice. Neurological: The patient is awake and alert. No focal deficits. Psychiatric: Normal affect. Not anxious appearing. Course Administered Medications Discontinued Medications Acetaminophen (Acetaminophen 325 Mg Tab) 650 mg PO NOW STA Stop: 12/28/21 21:51 Last Admin: 12/28/21 21:55 Dose: 650 mg Documented by: [id number] Furosemide (Furosemide 40 Mg/4 Ml Vial) 40 mg IV ONE ONE Stop: 12/28/21 21:16 Last Admin: 12/28/21 21:25 Dose: 40 mg Documented by: [id number] Medical Decision Making Differential Diagnosis Cellulitis, abscess, myositis, DVT, MRSA Medical Records Attestation: I reviewed the patient's medical records. I did perform a limited focused review of portions of the patient's old chart on the electronic medical record. The patient was seen here on October 22 for a wound to his right calf. He had a half dollar sized lesion and had blood work performed. He was discharged on Keflex. He followed up with his nurse practitioner who stated that they would continue to Keflex and refer him to wound care clinic. Home Medications Current Medication List: was personally reviewed by me Laboratory Data Attestation: I reviewed the patient's lab results. Result diagrams: 12/28/21 21:10 12/28/21 21:10 Lab Results 12/28/21 12/28/21 Range/Units 21:10 21:10 WBC 8.22 (4.8-10.8) K/uL RBC 4.46 L (4.7-6.1) M/uL Hgb 14.4 (14.0-18.0) g/dL Hct 45.9 (42-52) % MCV 102.9 H (80-100) fL MCH 32.3 (25-34) pg MCHC 31.4 L (32-36) g/dL RDW Std Deviation 55.4 H (36.4-46.3) fL RDW Coeff of Liam 14.8 H (11.5-14.5) % Plt Count 211 (130-400) K/uL MPV 11.3 H (7.4-10.4) fL Immature Gran % (Auto) 1.8 % Neut % (Auto) 72.3 % Lymph % (Auto) 13.9 % [place] % (Auto) 8.8 % Eos % (Auto) 3.0 % Baso % (Auto) 0.2 % Neut # (Auto) 5.94 (1.4-6.5) K/uL Lymph # (Auto) 1.14 L (1.2-3.4) K/uL [place] # (Auto) 0.72 H (0.11-0.59) K/uL Eos # (Auto) 0.25 (0-0.5) K/uL Baso # (Auto) 0.02 (0-0.2) K/uL Immature Gran # (Auto) 0.15 H (0.00-0.02) K/uL Sodium 142 (136-145) mmol/L Potassium 4.9 (3.5-5.1) mmol/L Chloride 106 (98-107) mmol/L Carbon Dioxide 30 (21-32) mmol/L Anion Gap 6 (3-11) BUN 69 H (6-23) mg/dl Creatinine 2.40 H (0.6-1.4) mg/dl Est Cr Clr Drug Dosing 30.8 ml/min Est GFR ( Amer) 28.5 ml/min Est GFR (Non-Af Amer) 24.6 ml/min BUN/Creatinine Ratio 28.8 H (10-20) Glucose 65 L (70-99(Fasting)) mg/dl Calcium 9.6 (8.5-10.1) mg/dl Total Bilirubin 0.9 (0.2-1.0) mg/dl AST 33 (13-39) U/L ALT 22 (7-52) U/L Alkaline Phosphatase 141 H (34-104) U/L C-Reactive Protein 1.69 H (0-0.5) mg/dl Total Protein 7.9 (6.0-8.3) gm/dl Albumin 4.1 (3.4-5.0) gm/dl Globulin 3.8 (2.5-4.0) gm/dl Albumin/Globulin Ratio 1.1 (0.9-2) MDM Narrative I did evaluate the patient as noted above. The patient is presenting with worsening cellulitis and swelling to the right leg. He has significant tenderness to the posterior calf inferiorly on the right side. He has pitting edema bilaterally. He has a history of CHF and is on furosemide. A Perez catheter was placed because he is incontinent. IV access was established. I did treat him with Lasix [address] I did [address] an order for continuous cardiac monitoring. The monitor showed normal sinus rhythm at a rate of 78 bpm. I did order and review the patient's blood work as noted in the electronic medical record. CBC is unremarkable without leukocytosis or anemia. His CMP demonstrates a BUN of 69 with a creatinine of 2.4. This is improved from December 22 when in the creatinine was 2.8. His glucose is slightly low at 65. He was give n some juice and crackers. CRP is elevated 1.69. Blood cultures were obtained. I did treat the patient with vancomycin IV. I did order a Doppler ultrasound of the right leg and nonvascular ultrasound of the right leg to evaluate for DVT and abscess. I did review the images myself as well as the radiology report as described above. There is no evidence of DVT or abscess. Impression & Plan Cellulitis of leg, right, Chronic kidney disease, stage 3, Hypoglycemia, Failure of outpatient treatment, Peripheral edema Discharge Plan Forms Stand Alone Forms: [facility] Prescriptions Prescriptions: No Action cholecalciferol (vitamin D3) 2,000 unit capsule 2,000 unit PO DAILY Qty: 0 RF: 0 metoprolol succinate 200 mg tablet extended release 24 hr 200 mg PO QAM Qty: 90 RF: 1 (DME) pen needle, diabetic [BD Ultra-Fine Mini Pen Needle] 31 gauge x 3/16" needle See Dose Instructions .ROUTE .MEDSUPPLY Qty: 100 RF: 3 (DME) One Touch Ava Meter Kit See Rx Instructions .Route .MEDSUPPLY Qty: 1 RF: 0 levothyroxine 50 mcg tablet 50 mcg PO .COMPLEX Qty: 45 RF: 3 levothyroxine 75 mcg tablet 75 mcg PO .COMPLEX Qty: 45 RF: 3 lisinopril 2.5 mg tablet 2.5 mg PO DAILY Qty: 90 RF: 3 (DME) lancets [OneTouch Delica Lancets] 33 gauge misc See Dose Instructions .ROUTE .MEDSUPPLY Qty: 100 RF: 3 potassium chloride 20 mEq tablet extended release 60 meq PO BID Qty: 540 RF: 3 (DME) OneTouch Verio test strips Strip See Dose Instructions .ROUTE .MEDSUPPLY Qty: 100 RF: 5 dabigatran etexilate 75 mg capsule 75 mg PO BID Qty: 180 RF: 3 allopurinol 300 mg tablet 300 mg PO QAM Qty: 90 RF: 3 metolazone 5 mg tablet 5 mg PO DAILY Qty: 30 RF: 2 alfuzosin [Uroxatral] 10 mg tablet extended release 24 hr 10 mg PO DAILY Qty: 30 RF: 3 hydralazine 50 mg tablet 50 mg PO TID Qty: 270 RF: 3 insulin asp prt-insulin aspart 100 unit/mL (70-30) insulin pen 15 unit subcut BID RF: 0 torsemide 20 mg tablet 80 mg PO BID RF: 0 multivitamin [Daily Multi-Vitamin] tablet 1 tab PO DAILY RF: 0 Combivent Respimat 20-100 mcg/actuation mist 2 puff INHALATION Q6H PRN (Reason: sob/wheezing) Qty: 4 RF: 5 isosorbide mononitrate 120 mg tablet extended release 24 hr 120 mg PO QAM Qty: 90 RF: 3 gabapentin 100 mg capsule 100 mg PO TID RF: 0 acetaminophen [Tylenol Extra Strength] 500 mg Tablet 1,000 mg PO Q6H PRN (Reason: pain/fever) RF: 0 Referrals Referrals: Candida Andrea CRNP [Primary Care Provider] -
[2021-12-28] MEDS ORDERED: FUROSEMIDE 40 MG/4 ML VIAL IV ONE (21:15)
[2021-12-28 21:39] LABS: Basophils # (auto) 0.02 K/uL (0-0.2); Basophils % (auto) 0.2 %; Eosinophils # (auto) 0.25 K/uL (0-0.5); Hematocrit (blood only) 45.9 % (42-52); Hemoglobin 14.4 g/dL (14.0-18.0); Immature Granulocytes # (auto) 0.15 K/uL (0.00-0.02); Immature Granulocytes % (auto) 1.8 %; Lymphocytes # (auto) 1.14 K/uL (1.2-3.4); Lymphocytes % (auto) 13.9 %; Mean Corpuscular Hemoglobin 32.3 pg (25-34); Mean Corpuscular Hgb Conc 31.4 g/dL (32-36); Mean Corpuscular Volume 102.9 fL (80-100); Mean Platelet Volume 11.3 fL (7.4-10.4); Monocytes # (auto) 0.72 K/uL (0.11-0.59); Monocytes % (auto) 8.8 %; Neutrophils # (auto) 5.94 K/uL (1.4-6.5); Neutrophils % (auto) 72.3 %; Platelet Count 211 K/uL (130-400); RDW Coefficient of Variation 14.8 % (11.5-14.5); RDW Standard Deviation 55.4 fL (36.4-46.3); Red Blood Count 4.46 M/uL (4.7-6.1); White Blood Count 8.22 K/uL (4.8-10.8)
[2021-12-28] MEDS ORDERED: ACETAMINOPHEN 325 MG TAB PO STA (21:50)
[2021-12-28 21:57] LABS: Albumin Globulin Ratio 1.1 (0.9-2); Albumin Level 4.1 gm/dl (3.4-5.0); BUN Creatinine Ratio 28.8 (10-20); Bilirubin,Total 0.9 mg/dl (0.2-1.0); C Reactive Protein 1.69 mg/dl (0-0.5); Calcium 9.6 mg/dl (8.5-10.1); Creatinine Clr Calc Pharmacy 30.8 ml/min; Est GFR (African American) 28.5 ml/min; Est GFR (Non-African American) 24.6 ml/min; Globulin 3.8 gm/dl (2.5-4.0); Potassium 4.9 mmol/L (3.5-5.1); Total Protein 7.9 gm/dl (6.0-8.3)
[2021-12-28] MEDS ORDERED: VANCOMYCIN CONSULT ACTIVE PRN (23:16)
[2021-12-28] MEDS ORDERED: VANCOMYCIN HCL 2,250 MG in SODIUM CHLORIDE 0.9% 500 ML IV ONE (23:16)
[2021-12-29] MEDS ORDERED: fentaNYL citrate 100 MCG/2 ML VIAL IV STA (00:11)
--- NOTE | 2021-12-29 00:33 | History & Physical Report ---
Date of Service December 29, 2021 Assessment & Plan (1) Cellulitis of leg, right: Plan: 81yo male with multiple medical problems presents with RLE cellulitis. Patient notes some increased edema of his bilateral LE over the last week. He had a fluid filled blister on the posterior right calf on 12/19/21 which burst. He has had progressive pain and redness of the right calf over the last week. He was seen in the ER for this complaint on 12/22/21 and was given a course of Keflex. He is afebrile, HD stable, nontoxic in appearance. He is having considerable pain from the right posterior calf as well as spasm. The wound itself does not appear to be grossly infected. It is superficial with mild cellulitis of the RLE. Per verbal report - no DVT or abscess noted on ultrasound. -Admit to medical -Elevate RLE -Continue diuresis with Lasix 40mg IV BID -Vancomycin for cellulitis. Chirag area of redness daily -Tylenol and Oxycodone as needed for pain -Wound care BID and PRN (2) Hypoglycemia: Plan: Patient with blood sugar of 65 in the ER - asymptomatic. Given juice and crackers -Continue to monitor blood sugar (3) Idiopathic cardiomyopathy: Plan: Patient with chronic combined systolic and diastolic CHF. He follows with Heart Failure - last seen on 10/30/21. He is on a diuretic sliding scale based on weight - He is to take Torsemide 60mg BID if <255, Torsemide 80mg IBD for 255- 260# and Torsemide 80mg BID + Metolazone for weight >260. He has mild bilateral LE edema at this time but does not seem to be in overt failure. Weight is 246.4 today. -Lasix 40mg IV BID -Elevated extremities -Continue PO Potassium -Monitor I/Os -Daily weights -Continue Hydralazine 50mg po TID -Continue Isosorbide mononitrate 120mg po daily -Continue Lisinopril 2.5mg po daily -Continue metoprolol 200mg po qAM (4) Atrial fibrillation: Plan: Rate controlled. Patient anticoagulated on Dabigatran -Continue metoprolol -Continue Dabigatran (5) BPH with obstruction/lower urinary tract symptoms: Plan: Perez placed in ER prior to administration of IV Lasix -Routine Perez care -Continue Alfuzosin daily (6) Hypothyroidism: Plan: Stable on medication -Continue Synthroid 50mcg po daily (7) Chronic obstructive pulmonary disease: Plan: No cough, SOB or wheeze -Continue Combivent PRN (8) HTN (hypertension): Plan: Blood pressure stable -Continue home medications - Lisinopril, Metoprolol, Hydralazine and Isosorbide mononitrate (9) Chronic kidney disease, stage 3: Plan: BUN and Cr are near baseline -Monitor UOP -Monitor renal function and electrolytes with IV Lasix -Avoid nephrotoxic agents -Renal dosing where needed (10) Type 2 diabetes mellitus, with long-term current use of insulin: Plan: With mild hypoglycemia in ER. -Check HgbA1C -Lantus 7u BID -ISS -Goal blood sugar 100 - 140 (11) Hx of gout: Plan: Chronic. Stable -Continue Allopurinol 300mg po qAM Plan: F/E/N -Heplock. Monitor electrolytes and replete as needed. CC diet as tolerated Ppx - Continue home Dabigatran Code - Full per discussion with patient Dispo - Admit to medical History of Present Illness Chief Complaint: RLE pain, wound Primary Care Provider: JOSE Leon Bryn Olvera is an 81yo male with multiple medical problems to include AF on Dabigatran anticoagulation, DM, HTN, Gout, Hypothyroidism and COPD presenting with RLE wound. Patient has a small wound on posterior right calf which has been ongoing for approximately 10 days. Patient developed a blister on his posterior calf on or around 12/19/21 which has since broken open. He was seen in the ER on 12/22/21 with complaint of an open sore. He was given IV Cefazolin and discharged home to complete a course of Keflex. Patient reports he has been taking his medication as prescribed. He returns tonight with complaint of progressive RLE redness, pain and spasm. He has had some subjective fevers and chills at home. Otherwise, no acute complaints. Patient is very hard of hearing. He normally wears hearing aides but his battery just ran out. His is unable to go to the car to get him fresh batteries because her back is out. Patient afebrile, HD stable in the ER. Complaining of discomfort from the bed as well as frequent painful muscle spasms in the RLE. ER Course: Tylenol, Lasix 40mg, Vancomycin, Fentanyl Allergies Allergy/AdvReac Type Severity Reaction Status Date / Time adhesive Allergy Mild RASH Verified 12/28/21 21:10 latex AdvReac Intermediate BLISTERS Verified 12/28/21 21:10 SKIN morphine AdvReac Intermediate DELUSIONS, Verified 12/28/21 21:10 "LOSES TIME" Home Medications Medication Instructions Recorded Confirmed Type multivitamin (Daily Multi-Vitamin) 1 tab PO DAILY 01/20/19 12/28/21 History cholecalciferol (vitamin D3) 50 2,000 unit PO DAILY #0 03/01/19 12/28/21 History mcg (2,000 unit) capsule acetaminophen 500 mg tablet 1,000 mg PO Q6H PRN 07/19/19 12/28/21 History (Tylenol Extra Strength) alfuzosin 10 mg tablet,extended 10 mg PO DAILY #30 tab 12/09/20 12/28/21 Rx release 24 hr (Uroxatral) metoprolol succinate 200 mg 200 mg PO QAM #90 tab 02/01/21 12/28/21 Rx tablet,extended release 24 hr One Touch Ava Meter Kit #1 ea 02/13/21 11/27/21 Rx pen needle, diabetic 31 gauge x #100 ea 02/13/21 11/27/21 Rx 3/16" (BD Ultra-Fine Mini Pen Needle) ipratropium 20 mcg-albuterol 100 2 puff INHALATION Q6H PRN #4 g 03/05/21 12/28/21 Rx mcg/actuation mist for inhalation (Combivent Respimat) metolazone 5 mg tablet 5 mg PO DAILY #30 tab 03/20/21 12/28/21 Rx lancets 33 gauge (OneTouch Delica #100 ea 04/02/21 11/27/21 Rx Lancets) levothyroxine 50 mcg tablet 50 mcg PO .COMPLEX #45 tab 04/02/21 12/28/21 Rx levothyroxine 75 mcg tablet 75 mcg PO .COMPLEX #45 tab 04/02/21 12/28/21 Rx lisinopril 2.5 mg tablet 2.5 mg PO DAILY #90 tab 04/02/21 12/28/21 Rx isosorbide mononitrate 120 mg 120 mg PO QAM #90 tab 04/03/21 12/28/21 Rx tablet,extended release 24 hr potassium chloride 20 mEq 60 meq PO BID #540 tab 08/01/21 12/28/21 Rx tablet,extended release blood sugar diagnostic (OneTouch #100 ea 08/12/21 11/27/21 Rx Verio test strips) dabigatran etexilate 75 mg capsule 75 mg PO BID #180 cap 09/08/21 12/28/21 Rx insulin aspar prot-insulin aspart 15 unit SUBCUT BID ml 10/06/21 12/28/21 History 100 unit/mL (70-30) subcutaneous pen allopurinol 300 mg tablet 300 mg PO QAM #90 tab 10/10/21 12/28/21 Rx hydralazine 50 mg tablet 50 mg PO TID #270 tab 10/14/21 12/28/21 Rx gabapentin 100 mg capsule 100 mg PO TID 12/09/21 12/28/21 History torsemide 20 mg tablet 80 mg PO BID tab 12/09/21 12/28/21 History Past Med/Surg History Medical History (Updated 12/29/21 @ 00:26 by Sondra Coon DO) Allergic rhinitis Arthritis Atrial fibrillation ON PRADAXA BPH (benign prostatic hyperplasia) BPH with obstruction/lower urinary tract symptoms Cardiomyopathy Chronic combined systolic and diastolic CHF (congestive heart failure) Claustrophobia Congestive heart failure [facility] COPD (chronic obstructive pulmonary disease) Diabetic nephropathy associated with type 2 diabetes mellitus Hearing deficit 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 YEAR 10 YEARS AGO History of bronchoscopy History of cardiac cath NO STENTS History of cataract surgery rt/left History of colonoscopy History of ear surgery LEFT MASTOIDECTOMY (DEAF IN LEFT EAR) History of tonsillectomy History of tooth extraction History of total knee replacement RT S/P cholecystectomy Family History Son Colon cancer Coronary heart disease Sister Hypothyroidism Lymphoma Stroke Mother Aortic aneurysm Diabetes Father Heart disease Myocardial infarction Sister Liver problem Other Hypertension Denies family history of Ovarian cancer Prostate cancer Breast cancer Social History Smoking Status: Never smoker Tobacco Type: Cigarettes Age Started Using Tobacco: 16; Age Quit Using Tobacco: 39; packs per day: 5; Years Smoked: 23; Number of Years Since Quit: 39; Second Hand Exposure: No; Hx Alcohol Use: No Hx Substance Use: No Preferred Language: Comoran Communication Ability: Effective Visual Impairment: No Limitations Hearing Ability: Use of Hearing Aid Furnace Caretaker Required: No Beliefs That Will Affect Care: None marital status: Current Living Situation: Spouse current occupational status: retired 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 [employer] Feels Safe at Home: Yes Childhood Exposure to Second-Hand Smoke: No caffeine: No Dental Care, Regularly: Yes Physical Activity Frequency: Does not Exercise Seatbelt Use: always Sunscreen Use: No Assistive Devices: Glasses and Hearing Aid - Right Review of Systems Review of Systems: All systems reviewed & are unremarkable except as noted in HPI & below Physical Exam Physical Exam: General: elderly male patient resting comfortably, NAD, non- toxic in appearance, very hard of hearing Skin: warm, dry HEENT: NC/AT, PERRL, EOMI, anicteric sclera, conjunctiva without injection, external ear normal to inspection and nontender, nares patent, moist mucus membranes, dentition intact, no oropharyngeal lesions, neck supple, trachea midline, no LAD, no thyromegaly, no JVD Heart: +S1/S2, irregularly irregular, no m/r/g Lungs: equal air entry bilaterally, no rales/rhonchi/wheezes Abd: +BS, soft, NT/ND, no masses/organomegaly/ascites Ext: warm, 2+ pulses in UE/LE bilaterally, 2+ pitting edema of bilateral LE. Redness to anterior mott on right. Small wound on posterior right thigh which appears like a ruptured fluid blister. RLE is mildly warm to touch and tender. Neuro: nonfocal, patient AA&O x 4, speech intact, no facial droop, moving all extremities on command with equal strength 5/5 Results & Data Results & Data ([facility]) Vital Signs (Past 12 Hours) Vital Signs Temp Pulse Pulse Resp BP BP Pulse Ox 12/28/21 21:12 36.6 C 76 18 123/58 L 96 12/28/21 20:41 36.7 C 71 20 119/60 96 Laboratory Results Laboratory Results WBC 8.22 K/uL (4.8-10.8) 12/28/21 21:10 RBC 4.46 M/uL (4.7-6.1) L 12/28/21 21:10 Hgb 14.4 g/dL (14.0-18.0) 12/28/21 21:10 Hct 45.9 % (42-52) 12/28/21 21:10 MCV 102.9 fL (80-100) H 12/28/21 21:10 MCH 32.3 pg (25-34) 12/28/21 21:10 MCHC 31.4 g/dL (32-36) L 12/28/21 21:10 RDW Std Deviation 55.4 fL (36.4-46.3) H 12/28/21 21:10 RDW Coeff of Liam 14.8 % (11.5-14.5) H 12/28/21 21:10 Plt Count 211 K/uL (130-400) 12/28/21 21:10 MPV 11.3 fL (7.4-10.4) H 12/28/21 21:10 Immature Gran % (Auto) 1.8 % 12/28/21 21:10 Neut % (Auto) 72.3 % 12/28/21 21:10 Lymph % (Auto) 13.9 % 12/28/21 21:10 [place]isher % (Auto) 8.8 % 12/28/21 21:10 Eos % (Auto) 3.0 % 12/28/21 21:10 Baso % (Auto) 0.2 % 12/28/21 21:10 Neut # (Auto) 5.94 K/uL (1.4-6.5) 12/28/21 21:10 Lymph # (Auto) 1.14 K/uL (1.2-3.4) L 12/28/21 21:10 [place]isher # (Auto) 0.72 K/uL (0.11-0.59) H 12/28/21 21:10 Eos # (Auto) 0.25 K/uL (0-0.5) 12/28/21 21:10 Baso # (Auto) 0.02 K/uL (0-0.2) 12/28/21 21:10 Immature Gran # (Auto) 0.15 K/uL (0.00-0.02) H 12/28/21 21:10 Sodium 142 mmol/L (136-145) 12/28/21 21:10 Potassium 4.9 mmol/L (3.5-5.1) 12/28/21 21:10 Chloride 106 mmol/L (98-107) 12/28/21 21:10 Carbon Dioxide 30 mmol/L (21-32) 12/28/21 21:10 Anion Gap 6 (3-11) 12/28/21 21:10 BUN 69 mg/dl (6-23) H 12/28/21 21:10 Creatinine 2.40 mg/dl (0.6-1.4) H 12/28/21 21:10 Est Cr Clr Drug Dosing 30.8 ml/min 12/28/21 21:10 Est GFR ( Amer) 28.5 ml/min 12/28/21 21:10 Est GFR (Non-Af Amer) 24.6 ml/min 12/28/21 21:10 BUN/Creatinine Ratio 28.8 (10-20) H 12/28/21 21:10 Glucose 65 mg/dl (70-99(Fasting)) L 12/28/21 21:10 Calcium 9.6 mg/dl (8.5-10.1) 12/28/21 21:10 Total Bilirubin 0.9 mg/dl (0.2-1.0) 12/28/21 21:10 AST 33 U/L (13-39) 12/28/21 21:10 ALT 22 U/L (7-52) 12/28/21 21:10 Alkaline Phosphatase 141 U/L (34-104) H 12/28/21 21:10 C-Reactive Protein 1.69 mg/dl (0-0.5) H 12/28/21 21:10 Total Protein 7.9 gm/dl (6.0-8.3) 12/28/21 21:10 Albumin 4.1 gm/dl (3.4-5.0) 12/28/21 21:10 Globulin 3.8 gm/dl (2.5-4.0) 12/28/21 21:10 Albumin/Globulin Ratio 1.1 (0.9-2) 12/28/21 21:10 Diagnostic Findings RLE doppler - no abscess or clot PG Care Time/CCT Total # of Minutes Spent Total Time Spent with Patient: Total time spent is greater than 50% in coordination of care (as documented) at patient's floor/unit and/or counseling patient: Coding Level of Care Code 45230 Initial Inpt Care Lvl 3 Diagnoses Hypoglycemia E16.2 BPH with obstruction/lower urinary tract symptoms N40.1; N13.8 Idiopathic cardiomyopathy I42.8 Hypothyroidism E03.9 Hypothyroidism type: acquired Chronic obstructive pulmonary disease J44.9 HTN (hypertension) I10 Chronic kidney disease, stage 3 N18.30 Chronic kidney disease stage 3 subtype: unspecified whether 3a or 3b Type 2 diabetes mellitus, with long-term current use of insulin E11.9; Z79.4 Hx of gout Z87.39 Atrial fibrillation I48.91 Cellulitis of leg, right L03.115 (1) Hypothyroidism Hypothyroidism type: acquired Qualified Code(s): E03.9 - Hypothyroidism, unspecified (2) Chronic kidney disease, stage 3 Chronic kidney disease stage 3 subtype: unspecified whether 3a or 3b Qualified Code(s): N18.30 - Chronic kidney disease, stage 3 unspecified
[2021-12-29] MEDS ORDERED: DOCUSATE SODIUM 100 MG CAP PO PRN (02:17)
[2021-12-29] MEDS ORDERED: GLUCOSE 10 TABS/TUBE PO PRN (02:17)
[2021-12-29] MEDS ORDERED: POLYETHYLENE (MIRALAX) 17 GM PACK PO PRN (02:17)
[2021-12-29] MEDS ORDERED: VANCOMYCIN CONSULT ACTIVE PRN (02:17)
[2021-12-29] MEDS ORDERED: GLUCAGON FOR INJ 1 MG VIAL SQ PRN (02:17)
[2021-12-29] MEDS ORDERED: IPRATROPIUM BROMIDE/ALBUTEROL respimat INH INH PRN (02:17)
[2021-12-29] MEDS ORDERED: GLUCOSE 40% GEL 15 GM TUBE PO PRN (02:17)
[2021-12-29] MEDS ORDERED: DEXTROSE 50% 50 ML SYRINGE IV PRN (02:17)
[2021-12-29] MEDS ORDERED: CARBOHYDRATES FOR HYPOGLYCEMIA PO PRN (02:17)
[2021-12-29] MEDS ORDERED: oxyCODONE HCL IR 5 MG TAB (IMMEDIATE RELEASE) ONE (02:25)
[2021-12-29] MEDS ORDERED: ALBUTEROL HFA 8 GM INHALER INH PRN (02:50)
[2021-12-29] MEDS ORDERED: IPRATROPIUM BROMIDE HFA INHALER INH PRN (02:50)
[2021-12-29] MEDS: LEVOTHYROXINE SODIUM 75 MCG TABLET PO SCH (05:30)
[2021-12-29 06:55] LABS: Estimated Average Glucose 146 mg/dl; Hemoglobin A1C 6.7 % (4.5-5.6)
--- NOTE | 2021-12-29 08:05 | Ultrasound Report ---
US venous doppler LE RT CLINICAL HISTORY: swelling eval for dvt TECHNIQUE: Right lower extremity real-time compression venous ultrasound with Color Doppler imaging. Utilizing real-time ultrasonic imaging multiple real time high-resolution ultrasonic images with comp ression and noncompression maneuvers of the deep venous system in addition to color doppler imaging w ere performed from the common femoral vein through the proximal calf veins. COMPARISON: Comparison is made to right lower extremity Doppler ultrasound 04/10/2013 FINDINGS: Currently there is normal compressibility of the deep venous system from the common femoral vein thro ugh the proximal calf veins. No current evidence of acute thrombosis is identified. Edema is noted in the right calf. Impression: No evidence of deep venous thrombus. Edema in the right calf is noted. ACT 112: Negative or not required by law. Electronically signed by: Saturnino Parra M.D. 12/29/2021 8:03 AM
--- NOTE | 2021-12-29 08:21 | Ultrasound Report ---
US extremity non-vascular ltd HISTORY: 81 years-old Male right calf eval for abscess acute pain and swelling of the right calf COMPARISON: DVT study of same day TECHNIQUE: Multiple real-time sonographic images of the right calf soft tissues were obtained assessi ng grayscale appearance and color flow FINDINGS: Moderate subcutaneous edema. No discrete fluid collections identified. Patent lesser saphenous vein i s noted within the area of clinical concern. Cutaneous thickening. IMPRESSION: Moderate subcutaneous edema. No abscess. ACT 112: Negative or not required by law. The above report was generated using voice recognition software. It may contain grammatical, syntax o r spelling errors. Electronically signed by: Tnoio Jensen M.D. 12/29/2021 8:20 AM
--- NOTE | 2021-12-29 08:52 | Pharmacy Report ---
Pharmacy Vanc AUC Short Note - Date of Service December 29, 2021 - Assessment & Plan Assessment 81 year old M receiving VANCOMYCIN for treatment of SOFT SKIN AND TISSUE INFECTION. Pertinent microbiologic data includes: N/A. Day # 1 of antimicrobial therapy. Plan Vancomycin * AUC/LUIS is the preferred PK/PD target for vancomycin * AUC guided dosing is effective and associated with decreased risk of nephrotoxicity compared to traditional trough targets * VANCOMYCIN 1000 MG IV Q24H predicted to achieve target AUC/LUIS of 400-600 mg/L.hr and may be associated with a 14 % risk of nephrotoxicity * Random level TO BE ORDERED BASED UPON CLINICAL PICTURE Pharmacy will continue to follow and will adjust dose/frequency as necessary. Thank you.
[2021-12-29] MEDS: allopurinoL 300 MG TAB PO SCH (08:57)
[2021-12-29] MEDS: ALFUZOSIN HCL 10 MG TAB PO SCH (08:57)
[2021-12-29] MEDS: DABIGATRAN ETEXILATE 75 MG CAP PO SCH ×2 (08:58→21:22)
[2021-12-29] MEDS: POTASSIUM CHLORIDE CRTAB 20 MEQ TABCR PO SCH ×2 (08:58→17:23)
[2021-12-29] MEDS: GABAPENTIN 100 MG CAP PO SCH ×3 (08:59→21:22)
[2021-12-29] MEDS: hydrALAZINE TAB 50 MG TAB PO SCH ×2 (08:59→14:13)
[2021-12-29] MEDS ORDERED: VANCOMYCIN HCL 1,000 MG in SODIUM CHLORIDE 0.9% 250 ML IV SCH (09:00)
[2021-12-29] MEDS ORDERED: lisinopril 2.5 MG TAB PO SCH (09:00)
[2021-12-29] MEDS: METOPROLOL SUCC 50MG EXT REL TAB PO SCH (09:00)
[2021-12-29] MEDS: ISOSORBIDE MONO EXTENDED REL 60 MG TABCR PO SCH (09:00)
[2021-12-29] MEDS: INSULIN GLARGINE SOLOSTAR 100 UNITS/ML 3 ML PEN SC SCH ×2 (09:06→21:21)
[2021-12-29] MEDS: INSULIN ASPART PER UNIT SC SCH ×4 (09:09→21:21)
[2021-12-29] MEDS: ACETAMINOPHEN 500 MG TAB PO PRN (09:10)
[2021-12-29] MEDS: FUROSEMIDE 40 MG/4 ML VIAL IV SCH (09:11)
[2021-12-29] MEDS: oxyCODONE HCL IR 5 MG TAB (IMMEDIATE RELEASE) PO PRN (21:28)
[2021-12-29] MEDS: VANCOMYCIN HCL 1,000 MG in SODIUM CHLORIDE 0.9% 250 ML IV SCH (23:13)
[2021-12-30] MEDS: LEVOTHYROXINE SODIUM 50 MCG TABLET PO SCH (06:10)
[2021-12-30 07:04] LABS: Basophils # (auto) 0.01 K/uL (0-0.2); Basophils % (auto) 0.1 %; Eosinophils # (auto) 0.14 K/uL (0-0.5); Eosinophils % (auto) 1.7 %; Hematocrit (blood only) 38.4 % (42-52); Hemoglobin 12.2 g/dL (14.0-18.0); Immature Granulocytes # (auto) 0.08 K/uL (0.00-0.02); Immature Granulocytes % (auto) 0.9 %; Lymphocytes # (auto) 0.95 K/uL (1.2-3.4); Lymphocytes % (auto) 11.2 %; Mean Corpuscular Hemoglobin 32.2 pg (25-34); Mean Corpuscular Hgb Conc 31.8 g/dL (32-36); Mean Corpuscular Volume 101.3 fL (80-100); Mean Platelet Volume 10.9 fL (7.4-10.4); Monocytes # (auto) 0.82 K/uL (0.11-0.59); Monocytes % (auto) 9.7 %; Neutrophils # (auto) 6.47 K/uL (1.4-6.5); Neutrophils % (auto) 76.4 %; Platelet Count 160 K/uL (130-400); RDW Coefficient of Variation 14.9 % (11.5-14.5); RDW Standard Deviation 54.2 fL (36.4-46.3); Red Blood Count 3.79 M/uL (4.7-6.1); White Blood Count 8.47 K/uL (4.8-10.8)
[2021-12-30 07:31] LABS: BUN Creatinine Ratio 26.5 (10-20); Calcium 8.7 mg/dl (8.5-10.1); Creatinine Clr Calc Pharmacy 29.9 ml/min; Est GFR (African American) 26.7 ml/min; Potassium 4.7 mmol/L (3.5-5.1)
[2021-12-30] MEDS: INSULIN ASPART PER UNIT SC SCH ×4 (08:41→21:28)
[2021-12-30] MEDS: INSULIN GLARGINE SOLOSTAR 100 UNITS/ML 3 ML PEN SC SCH ×2 (08:43→21:28)
[2021-12-30] MEDS: DABIGATRAN ETEXILATE 75 MG CAP PO SCH ×2 (08:43→21:27)
[2021-12-30] MEDS: allopurinoL 300 MG TAB PO SCH (08:43)
[2021-12-30] MEDS: GABAPENTIN 100 MG CAP PO SCH ×3 (08:43→21:27)
[2021-12-30] MEDS: POTASSIUM CHLORIDE CRTAB 20 MEQ TABCR PO SCH ×2 (08:43→18:06)
[2021-12-30] MEDS: ISOSORBIDE MONO EXTENDED REL 60 MG TABCR PO SCH (08:44)
[2021-12-30] MEDS: oxyCODONE HCL IR 5 MG TAB (IMMEDIATE RELEASE) PO PRN (13:10)
[2021-12-30] MEDS: FUROSEMIDE 40 MG/4 ML VIAL IV SCH (18:06)
--- NOTE | 2021-12-30 20:00 | Hospitalist Progress Note ---
Date of Service December 30, 2021 Assessment & Plan (1) Cellulitis of leg, right: Plan: 81yo male with multiple medical problems presents with RLE cellulitis. Patient notes some increased edema of his bilateral LE over the last week. He had a fluid filled blister on the posterior right calf on 12/19/21 which burst. He has had progressive pain and redness of the right calf over the last week. He was seen in the ER for this complaint on 12/22/21 and was given a course of Keflex. The patient has lower extremity edema, with extensive cellulitis with superimposed blister, today he has been significantly improved, no erythema on exam, patient has superficial ulcer, still has 2+ lower extremity edema, possibly secondary to heart failure, resume Lasix today He is afebrile, HD stable, nontoxic in appearance. He is having considerable pain from the right posterior calf as well as spasm. The wound itself does not appear to be grossly infected. It is superficial with mild cellulitis of the RLE. Per verbal report - no DVT or abscess noted on ultrasound. -Vancomycin for cellulitis. -Tylenol and Oxycodone as needed for pain -Visited by wound care, discussed with the case mgr, patient can be discharged tomorrow if lower extremity edema is significantly proved, case mgr will arrange for outpatient wound clinic follow-up -Patient 2+ lower extremity edema which could have been contributing factor to his cellular (2) Hypotension: Plan: Yesterday patient became hypotensive, systolic blood pressure dropped to the 80s, possibly secondary to combination effect of hydralazine, Lasix lisinopril isosorbide and metoprolol Of the above meds was held Today I resume Lasix the blood pressure improved to 110/75 (3) Idiopathic cardiomyopathy: Plan: Patient with chronic combined systolic and diastolic CHF. He follows with Heart Failure - last seen on 10/30/21. He is on a diuretic sliding scale based on weight - He is to take Torsemide 60mg BID if <255, Torsemide 80mg IBD for 255- 260# and Torsemide 80mg BID + Metolazone for weight >260. He has 2+ lower extremity edema, could be contributing to the cellulitis -Resume Lasix 40mg IV BID -Elevated extremities -Continue PO Potassium -Monitor I/Os -Resume metoprolol, but continue to hold lisinopril, hydralazine due to hypotension, continue isosorbide (4) Atrial fibrillation: Plan: Rate controlled. Patient anticoagulated on Dabigatran -Continue metoprolol -Continue Dabigatran (5) HTN (hypertension): Plan: Hypotension as mentioned above occurred yesterday plan as mentioned (6) Type 2 diabetes mellitus, with long-term current use of insulin: Plan: With mild hypoglycemia in ER. -Check HgbA1C -Lantus 7u BID -ISS -Goal blood sugar 100 - 140 (7) Hypoglycemia: Plan: Patient with blood sugar of 65 in the ER - asymptomatic. Given juice and crackers -Continue to monitor blood sugar (8) BPH with obstruction/lower urinary tract symptoms: Plan: Perez placed in ER prior to administration of IV Lasix -Routine Perez care -Continue Alfuzosin daily (9) Hypothyroidism: Plan: Stable on medication -Continue Synthroid 50mcg po daily (10) Chronic obstructive pulmonary disease: Plan: No cough, SOB or wheeze -Continue Combivent PRN (11) Chronic kidney disease, stage 3: Plan: BUN and Cr are near baseline -Monitor UOP -Monitor renal function and electrolytes with IV Lasix -Avoid nephrotoxic agents -Renal dosing where needed (12) Hx of gout: Plan: Chronic. Stable -Continue Allopurinol 300mg po qAM Plan: F/E/N -Heplock. Monitor electrolytes and replete as needed. CC diet as tolerated Ppx - Continue home Dabigatran Code - Full per discussion with patient Dispo - Admit to medical Admission and Anticipated Discharge Date Admission Date: December 29, 2021 Subjective Ileus better, hypotension resolved, Review of Systems Review of Systems: General: No malaise no weakness Neck: No tenderness no pain HEENT: No eye discharge no ear discharge Chest: No chest pain, no palpitation GI: Not distended, no nausea no vomiting Extremities: No edema no tenderness Neurology: No headache no weakness Psychiatric: No depression no anxiety Physical Exam Physical Exam: General: elderly male patient resting comfortably, NAD, non- toxic in appearance, very hard of hearing Skin: warm, dry HEENT: NC/AT, PERRL, EOMI, anicteric sclera, conjunctiva without injection, ex ternal ear normal to inspection and nontender, nares patent, moist mucus membranes, dentition intact, no oropharyngeal lesions, neck supple, trachea midline, no LAD, no thyromegaly, no JVD Heart: +S1/S2, irregularly irregular, no m/r/g Lungs: equal air entry bilaterally, no rales/rhonchi/wheezes Abd: +BS, soft, NT/ND, no masses/organomegaly/ascites Ext: warm, 2+ pulses in UE/LE bilaterally, 2+ pitting edema of bilateral LE. Redness to anterior mott on right. Small wound on posterior right thigh which appears like a ruptured fluid blister. RLE is mildly warm to touch and tender. Neuro: nonfocal, patient AA&O x 4, speech intact, no facial droop, moving all extremities on command with equal strength 5/5 Results & Data Results & Data ([facility]) Vital Signs (Past 12 Hours) Vital Signs Temp Pulse Resp BP Pulse Ox 12/30/21 16:21 36.7 C 70 18 110/75 94 12/30/21 07:58 36.7 C 72 18 111/64 93 PG Care Time/CCT Total # of Minutes Spent Total Time Spent with Patient: Total time spent is greater than 50% in coordination of care (as documented) at patient's floor/unit and/or counseling patient: Coding Level of Care Code 83803 Subseq Hosp Care Lvl 3 Diagnoses Cellulitis of leg, right L03.115 Hypoglycemia E16.2 Idiopathic cardiomyopathy I42.8 Atrial fibrillation I48.91 BPH with obstruction/lower urinary tract symptoms N40.1; N13.8 Hypothyroidism E03.9 Hypothyroidism type: acquired Chronic obstructive pulmonary disease J44.9 HTN (hypertension) I10 Chronic kidney disease, stage 3 N18.30 Chronic kidney disease stage 3 subtype: unspecified whether 3a or 3b Type 2 diabetes mellitus, with long-term current use of insulin E11.9; Z79.4 Hx of gout Z87.39 Hypotension I95.9 (1) Hypothyroidism Hypothyroidism type: acquired Qualified Code(s): E03.9 - Hypothyroidism, unspecified (2) Chronic kidney disease, stage 3 Chronic kidney disease stage 3 subtype: unspecified whether 3a or 3b Qualified Code(s): N18.30 - Chronic kidney disease, stage 3 unspecified
[2021-12-30] MEDS: VANCOMYCIN HCL 1,000 MG in SODIUM CHLORIDE 0.9% 250 ML IV SCH (23:27)
[2021-12-31] MEDS: LEVOTHYROXINE SODIUM 75 MCG TABLET PO SCH (06:08)
[2021-12-31 07:57] LABS: BUN Creatinine Ratio 27.5 (10-20); Calcium 9.1 mg/dl (8.5-10.1); Creatinine Clr Calc Pharmacy 30.1 ml/min; Est GFR (Non-African American) 23.3 ml/min; Potassium 4.7 mmol/L (3.5-5.1)
[2021-12-31] MEDS: METOPROLOL SUCC 50MG EXT REL TAB PO SCH (08:48)
[2021-12-31] MEDS: allopurinoL 300 MG TAB PO SCH (08:49)
[2021-12-31] MEDS: GABAPENTIN 100 MG CAP PO SCH ×3 (08:49→20:49)
[2021-12-31] MEDS: FUROSEMIDE 40 MG/4 ML VIAL IV SCH ×2 (08:49→17:45)
[2021-12-31] MEDS: ALFUZOSIN HCL 10 MG TAB PO SCH (08:49)
[2021-12-31] MEDS: POTASSIUM CHLORIDE CRTAB 20 MEQ TABCR PO SCH ×2 (08:49→17:45)
[2021-12-31] MEDS: ISOSORBIDE MONO EXTENDED REL 60 MG TABCR PO SCH (08:49)
[2021-12-31] MEDS: DABIGATRAN ETEXILATE 75 MG CAP PO SCH ×2 (08:49→20:49)
--- NOTE | 2021-12-31 08:55 | Pharmacy Report ---
Pharmacy Vanc AUC Short Note - Date of Service December 31, 2021 - Assessment & Plan Assessment 81 year old M receiving VANCOMYCIN for treatment of CELLULITIS. Pertinent microbiologic data includes: BLOOD culture growing GRAM POSITIVE COCCI IN CHAINS. Day # 4 of antimicrobial therapy. Plan Vancomycin * AUC/LUIS is the preferred PK/PD target for vancomycin * AUC guided dosing is effective and associated with decreased risk of nephrotoxicity compared to traditional trough targets * RANDOM level of 21.8 mcg/mL is predicted to achieve target AUC/LUIS of 400-600 mg/L.hr and may be associated with a 16 % risk of nephrotoxicity * Continue dose of 1000 mg IV every 24 hours * Trough or random level TO BE ORDERED BASED UPON CLINICAL PICTURE Pharmacy will continue to follow and will adjust dose/frequency as necessary. Thank you.
[2021-12-31] MEDS: INSULIN GLARGINE SOLOSTAR 100 UNITS/ML 3 ML PEN SC SCH ×2 (08:59→20:48)
[2021-12-31] MEDS: INSULIN ASPART PER UNIT SC SCH ×4 (09:01→20:44)
[2021-12-31 11:52] LABS: Folate (Folic Acid) > 22.30 ng/ml (>5.38)
[2021-12-31 11:53] LABS: Vitamin B12 402 pg/ml (180-914)
--- NOTE | 2021-12-31 12:07 | Hospitalist Progress Note ---
Date of Service December 31, 2021 Assessment & Plan (1) Cellulitis of leg, right: Plan: Improved/resolving. 07/29 blood cultures from admission grew alpha strep - very easily is the culprit pathogen. Change IV vancomycin to IV rocephin. Repeat blood cultures. Consider echo to check valves but doubt SBE given only 1 culture positive. Consider ID consultation. Spoke with wound care - will add tubigrip compression sleeve to right leg to help with edema. (2) Bacteremia: Plan: 07/29 admission blood cultures + for alpha strep. Change IV vanco to IV rocephin. Will consider this pathogenic given that his presenting infection was cellulitis. See #1 above. Plan for repeat blood cultures today to ensure sterility. (3) Hypotension: Plan: 12/30/21 - transient - BP meds held and resolved/has not recurred. 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 He follows with Heart Failure - last seen on 10/30/21. He is on a diuretic sliding scale based on weight - He is to take Torsemide 60mg BID if <255, Torsemide 80mg IBD for 255-260# and Torsemide 80mg BID + Metolazone for weight >260. Cont IV lasix while here to help with LE edema. He otherwise appears compensated. Weight this am is 258 pounds. Will ask for standing scale weights rather than bedscale. (5) Atrial fibrillation: Plan: Rates acceptable. Continue metoprolol 200mg daily. Continue Dabigatran. (6) HTN (hypertension): Plan: Transient Hypotension yesterday; multiple meds placed on hold. BPs today controlled/at goal. Cont off ROSIBEL, etc. (7) Type 2 diabetes mellitus, with long-term current use of insulin: Plan: HgbA1C 6.7% Cont Lantus 7u BID Cont novolog SSI Controlled (8) Hypoglycemia: Plan: NO further occurrences Likely had hypoglycemia early in stay 2nd to infection/cellulitis (9) BPH with obstruction/lower urinary tract symptoms: Plan: Perez removed; voiding Continue Alfuzosin daily (10) Hypothyroidism: Plan: TSH compensated (07/2021) continue Synthroid 50mcg po daily (11) Chronic obstructive pulmonary disease: Plan: stable no flare combivent prn (12) Chronic kidney disease, stage 3: Plan: stage 3b baseline CrCl 30-35 daily BMP while on IV lasix (13) Hx of gout: Plan: Chronic. Stable continue Allopurinol 300mg po qAM Plan: updated pt's by phone this evening plan for ID consultation repeat blood cx's if repeat stay negative anticipate d/c home with HH on Tuesday 01/02 Admission and Anticipated Discharge Date Admission Date: December 29, 2021 Subjective pt overall feeling much better cellulitis RLE is resolved he has pain but it is much improved from admission breathing is comfortable and not labored eating well edema improving Review of Systems Review of Systems: gen - no fevers, no chills, good appetite cv - no orthopnea pulm - no dyspnea or cough GI - no diarrhea Physical Exam Physical Exam: gen - obese, sitting in chair, NAD neck - no JVD sitting upright at 90 degrees mouth - MMM heart - irregular, s1 s2 lungs - CTA b/l abd - soft NT ND BS+ ext - 2+ edema right leg, 1+ left leg, pulses 2+ b/l skin - half-dollar sized superficial ulceration posterior R calf - clean, no erythema or purulent drainage; cellulitis of right mott and foot resolved Results & Data Results & Data ([facility]) Vital Signs (Past 12 Hours) Vital Signs Temp Pulse Resp BP Pulse Ox 12/31/21 07:48 36.7 C 74 16 151/84 H 97 Laboratory Results BMP acceptable - Cr 2.5 blood cx's from admission -- 07/29 bottles + for alpha strep PG Care Time/CCT Total # of Minutes Spent Total Time Spent with Patient: Total time spent is greater than 50% in coordination of care (as documented) at patient's floor/unit and/or counseling patient: Coding Level of Care Code 14987 Subseq Hosp Care Lvl 3 Diagnoses Cellulitis of leg, right L03.115 Hypotension I95.9 Idiopathic cardiomyopathy I42.8 Atrial fibrillation I48.91 HTN (hypertension) I10 Type 2 diabetes mellitus, with long-term current use of insulin E11.9; Z79.4 Hypoglycemia E16.2 BPH with obstruction/lower urinary tract symptoms N40.1; N13.8 Hypothyroidism E03.9 Hypothyroidism type: acquired Chronic obstructive pulmonary disease J44.9 Chronic kidney disease, stage 3 N18.30 Chronic kidney disease stage 3 subtype: unspecified whether 3a or 3b Hx of gout Z87.39 Bacteremia R78.81 (1) Chronic kidney disease, stage 3 Chronic kidney disease stage 3 subtype: unspecified whether 3a or 3b Qualified Code(s): N18.30 - Chronic kidney disease, stage 3 unspecified (2) Hypothyroidism Hypothyroidism type: acquired Qualified Code(s): E03.9 - Hypothyroidism, unspecified
[2021-12-31] MEDS: cefTRIAXone SODIUM 2,000 MG in DEXTROSE 5% 50 ML IV SCH (13:09)
[2021-12-31] MEDS: ADVANCED PROBIOTIC 1250 MG CAPSULE PO SCH (13:09)
[2021-12-31] MEDS: oxyCODONE HCL IR 5 MG TAB (IMMEDIATE RELEASE) PO PRN (20:46)
[2022-01-01] MEDS: LEVOTHYROXINE SODIUM 50 MCG TABLET PO SCH (05:37)
[2022-01-01] MEDS: DABIGATRAN ETEXILATE 75 MG CAP PO SCH ×2 (08:21→21:38)
[2022-01-01] MEDS: GABAPENTIN 100 MG CAP PO SCH ×3 (08:21→21:38)
[2022-01-01] MEDS: METOPROLOL SUCC 50MG EXT REL TAB PO SCH (08:21)
[2022-01-01] MEDS: FUROSEMIDE 40 MG/4 ML VIAL IV SCH ×2 (08:21→16:58)
[2022-01-01] MEDS: POTASSIUM CHLORIDE CRTAB 20 MEQ TABCR PO SCH (08:21)
[2022-01-01] MEDS: ISOSORBIDE MONO EXTENDED REL 60 MG TABCR PO SCH (08:21)
[2022-01-01] MEDS: ALFUZOSIN HCL 10 MG TAB PO SCH (08:21)
[2022-01-01] MEDS: allopurinoL 300 MG TAB PO SCH (08:21)
[2022-01-01] MEDS: ADVANCED PROBIOTIC 1250 MG CAPSULE PO SCH (08:21)
[2022-01-01 08:43] LABS: BUN Creatinine Ratio 25.7 (10-20); Calcium 9.2 mg/dl (8.5-10.1); Creatinine Clr Calc Pharmacy 30.9 ml/min; Est GFR (African American) 27.8 ml/min; Potassium 4.5 mmol/L (3.5-5.1)
[2022-01-01] MEDS: INSULIN ASPART PER UNIT SC SCH ×4 (08:47→21:37)
[2022-01-01] MEDS: INSULIN GLARGINE SOLOSTAR 100 UNITS/ML 3 ML PEN SC SCH ×2 (08:48→21:36)
[2022-01-01] MEDS: cefTRIAXone SODIUM 2,000 MG in DEXTROSE 5% 50 ML IV SCH (08:50)
[2022-01-01] MEDS: ACETAMINOPHEN 500 MG TAB PO PRN (19:19)
[2022-01-01] MEDS: oxyCODONE HCL IR 5 MG TAB (IMMEDIATE RELEASE) PO PRN (21:35)
--- NOTE | 2022-01-01 21:42 | Hospitalist Progress Note ---
Date of Service January 01, 2022 Assessment & Plan (1) Cellulitis of leg, right: Plan: Resolved. Had been on IV vancomycin -- changed to IV rocephin on 12/31/21. Repeat blood cultures 12/31/21 pending but negative thus far. Cont tubigrip compression sleeve to right leg to help with edema. Cont local wound care. See below regarding +blood culture from admission. (2) Bacteremia: Plan: 07/29 admission blood cultures + for alpha strep. Changed IV vanco to IV rocephin on 12/31/21. Will consider this pathogenic until proven otherwise. I called microbiology and asked them to ID the pathogen and perform a sensitivity panel. Repeat blood cx's 12/31/21 thus far negative. Echo ordered. [facility] ID consult requested for abx recommendations. (3) Hypotension: Plan: 12/30/21 - transient - BP meds held and resolved/has not recurred. 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 He follows with Heart Failure - last seen on 10/30/21. He is on a diuretic sliding scale based on weight - He is to take Torsemide 60mg BID if <255, Torsemide 80mg IBD for 255-260# and Torsemide 80mg BID + Metolazone for weight >260. Cont IV lasix while here to help with LE edema. Increase to 80mg BID since weight is between 255-260 and he has ongoing edema. He otherwise appears compensated (ie no pulmonary edema). (5) Atrial fibrillation: Plan: Rates acceptable. Continue metoprolol 200mg daily. Continue Dabigatran. (6) HTN (hypertension): Plan: Transient Hypotension earlier this week; multiple meds placed on hold. BPs today controlled/at goal. Cont off ROSIBEL, etc. (7) Type 2 diabetes mellitus, with long-term current use of insulin: Plan: HgbA1C 6.7% Cont Lantus 7u BID Cont novolog SSI Controlled (8) Hypoglycemia: Plan: NO further occurrences Likely had hypoglycemia early in stay 2nd to infection/cellulitis (9) BPH with obstruction/lower urinary tract symptoms: Plan: Perez removed; voiding fine Continue Alfuzosin daily (10) Hypothyroidism: Plan: TSH compensated (07/2021) continue Synthroid 50mcg po daily (11) Chronic obstructive pulmonary disease: Plan: stable no flare combivent prn (12) Chronic kidney disease, stage 3: Plan: stage 3b baseline CrCl 30-35 daily BMP while on IV lasix (13) Hx of gout: Plan: Chronic. Stable continue Allopurinol 300mg po qAM Plan: updated pt's at bedside today plan for ID consultation if ID advises IV abx post-d/c will need to determine if those abx can be done at home vs [facility] will keep social work aware of plan Admission and Anticipated Discharge Date Admission Date: December 29, 2021 Subjective pt sitting in chair comfortably during the visit at bedside offers no new complaints feeling "good" minimal pain right calf wearing tubigrip sleeve on right and "it's tight" Review of Systems Review of Systems: gen - no fevers, no chills; eating well cv - no cp; ongoing edema b/l - worse on RLE pulm - no dyspnea GI - no diarrhea Physical Exam Physical Exam: gen - obese, sitting in chair, NAD neck - no JVD mouth - MMM heart - irregular, s1 s2 lungs - CTA b/l abd - soft NT ND BS+ ext - 2+ edema right leg, 1+ left leg, pulses 2+ b/l - no change in edema skin - cellulitis resolved distal RLE; dressings intact - I left these alone today Results & Data Results & Data ([facility]) Vital Signs (Past 12 Hours) Vital Signs Temp Pulse Resp BP Pulse Ox 01/01/22 07:08 36.7 C 82 18 168/80 H 93 Intake and Output 01/01/22 01/01/22 01/01/22 06:59 14:59 22:59 Intake Total 585 / 585 Balance 585 / 585 Intake: IV 70 / 70 cefTRIAXone SODIUM 2,000 mg In 70 / 70 Dextrose 5% 50 ml @ 100 mls/hr IV DAILY [facility] Rx#:[id number] Oral 515 / 515 Other: # Unmeasured Voids 2 Weight 116.9 kg Weight Measurement Method Standing Scale Patient Weight 01/02/22 06:59 Weight 116.9 kg Laboratory Results Laboratory Results - last 24 hr 01/01/22 01/01/22 01/01/22 07:57 08:03 12:05 Sodium 142 Potassium 4.5 Chloride 109 H Carbon Dioxide 29 Anion Gap 4 BUN 63 H Creatinine 2.45 H Est Cr Clr Drug Dosing 30.9 Est GFR ( Amer) 27.8 Est GFR (Non-Af Amer) 24.0 BUN/Creatinine Ratio 25.7 H Glucose 94 POC Glucose 99 99 Calcium 9.2 01/01/22 01/01/22 17:23 20:36 Sodium Potassium Chloride Carbon Dioxide Anion Gap BUN Creatinine Est Cr Clr Drug Dosing Est GFR ( Amer) Est GFR (Non-Af Amer) BUN/Creatinine Ratio Glucose POC Glucose 93 131 H Calcium Diagnostic Findings repeat blood cultures from 12/31/21 negative echo pending PG Care Time/CCT Total # of Minutes Spent Total Time Spent with Patient: Total time spent is greater than 50% in coordination of care (as documented) at patient's floor/unit and/or counseling patient: Coding Level of Care Code 85132 Subseq Hosp Care Lvl 2 Diagnoses Cellulitis of leg, right L03.115 Bacteremia R78.81 Hypotension I95.9 Idiopathic cardiomyopathy I42.8 Atrial fibrillation I48.91 HTN (hypertension) I10 Type 2 diabetes mellitus, with long-term current use of insulin E11.9; Z79.4 Hypoglycemia E16.2 BPH with obstruction/lower urinary tract symptoms N40.1; N13.8 Hypothyroidism E03.9 Hypothyroidism type: acquired Chronic obstructive pulmonary disease J44.9 Chronic kidney disease, stage 3 N18.30 Chronic kidney disease stage 3 subtype: unspecified whether 3a or 3b Hx of gout Z87.39 (1) Chronic kidney disease, stage 3 Chronic kidney disease stage 3 subtype: unspecified whether 3a or 3b Qualified Code(s): N18.30 - Chronic kidney disease, stage 3 unspecified (2) Hypothyroidism Hypothyroidism type: acquired Qualified Code(s): E03.9 - Hypothyroidism, unsp ecified
[2022-01-02] MEDS: LEVOTHYROXINE SODIUM 75 MCG TABLET PO SCH (05:37)
[2022-01-02] MEDS ORDERED: PERFLUTREN LIPID MICROSPHERE (DEFINITY) IV ONE (07:54)
[2022-01-02] MEDS: GABAPENTIN 100 MG CAP PO SCH ×2 (08:45→13:08)
[2022-01-02] MEDS: DABIGATRAN ETEXILATE 75 MG CAP PO SCH (08:45)
[2022-01-02] MEDS: allopurinoL 300 MG TAB PO SCH (08:46)
[2022-01-02] MEDS: ADVANCED PROBIOTIC 1250 MG CAPSULE PO SCH (08:46)
[2022-01-02] MEDS: ALFUZOSIN HCL 10 MG TAB PO SCH (08:46)
[2022-01-02] MEDS: METOPROLOL SUCC 50MG EXT REL TAB PO SCH (08:46)
[2022-01-02] MEDS: ISOSORBIDE MONO EXTENDED REL 60 MG TABCR PO SCH (08:46)
[2022-01-02] MEDS: INSULIN GLARGINE SOLOSTAR 100 UNITS/ML 3 ML PEN SC SCH (08:47)
[2022-01-02] MEDS: FUROSEMIDE 40 MG/4 ML VIAL IV SCH ×2 (08:54→18:46)
[2022-01-02] MEDS: ACETAMINOPHEN 500 MG TAB PO PRN (08:54)
[2022-01-02] MEDS: INSULIN ASPART PER UNIT SC SCH ×3 (08:54→17:55)
[2022-01-02] MEDS: cefTRIAXone SODIUM 2,000 MG in DEXTROSE 5% 50 ML IV SCH (08:55)
[2022-01-02] MEDS ORDERED: POTASSIUM CHLORIDE CRTAB 20 MEQ TABCR PO SCH (09:00)
[2022-01-02 10:50] LABS: Hematocrit (blood only) 38.5 % (42-52); Hemoglobin 12.2 g/dL (14.0-18.0); Mean Corpuscular Hgb Conc 31.7 g/dL (32-36); Mean Platelet Volume 10.6 fL (7.4-10.4); Platelet Count 164 K/uL (130-400); RDW Coefficient of Variation 14.8 % (11.5-14.5); Red Blood Count 3.81 M/uL (4.7-6.1); White Blood Count 8.01 K/uL (4.8-10.8)
[2022-01-02 11:08] LABS: BUN Creatinine Ratio 26.1 (10-20); Creatinine Clr Calc Pharmacy 32.3 ml/min; Est GFR (African American) 29.3 ml/min; Est GFR (Non-African American) 25.3 ml/min
[2022-01-02 15:32] VITALS: BP 126/74; PULSE 63; TEMP 97.5; O2SAT 96
--- NOTE | 2022-01-02 16:51 | XCELERA ---
[id number]
--- NOTE | 2022-01-02 17:44 | Discharge Summary ---
Date of Service January 02, 2022 Admission HPI Per Admitting Provider Bryn Olvera is an 81yo male with multiple medical problems to include AF on Dabigatran anticoagulation, DM, HTN, Gout, Hypothyroidism and COPD presenting with RLE wound. Patient has a small wound on posterior right calf which has been ongoing for approximately 10 days. Patient developed a blister on his posterior calf on or around 12/19/21 which has since broken open. He was seen in the ER on 12/22/21 with complaint of an open sore. He was given IV Cefazolin and discharged home to complete a course of Keflex. Patient reports he has been taking his medication as prescribed. He returns tonight with complaint of progressive RLE redness, pain and spasm. He has had some subjective fevers and chills at home. Otherwise, no acute complaints. Patient is very hard of hearing. He normally wears hearing aides but his battery just ran out. His is unable to go to the car to get him fresh batteries because her back is out. Patient afebrile, HD stable in the ER. Complaining of discomfort from the bed a s well as frequent painful muscle spasms in the RLE. ER Course: Tylenol, Lasix 40mg, Vancomycin, Fentanyl Discharge Exam gen - obese, sitting in chair, NAD neck - no JVD mouth - MMM heart - irregular, s1 s2 lungs - CTA b/l abd - soft NT ND BS+ ext - 2+ edema right leg, 1+ left leg, pulses 2+ b/l - no change in edema skin - cellulitis resolved distal RLE; dressings intact - I left these alone today Discharge Data Allergies Allergy/AdvReac Type Severity Reaction Status Date / Time adhesive Allergy Mild RASH Verified 12/28/21 21:10 latex AdvReac Intermediate BLISTERS Verified 12/28/21 21:10 SKIN morphine AdvReac Intermediate DELUSIONS, Verified 12/28/21 21:10 "LOSES TIME" Consultations 12/28/21 23:16 ED Decision to Admit Stat 12/31/21 20:39 Consult Infectious Diseases Routine Ordered Studies 12/28/21 21:07 US extremity non-vascular ltd Urgent US venous doppler LE RT Urgent Hospital Course (1) Cellulitis of leg, right: Resolved. Had been on IV vancomycin -- changed to IV rocephin on 12/31/21. Repeat blood cultures 12/31/21 pending but negative thus far. Cont tubigrip compression sleeve to right leg to help with edema. Cont local wound care. See below regarding +blood culture from admission. (2) Bacteremia: 07/29 admission blood cultures + for alpha strep. Changed IV vanco to IV rocephin on 12/31/21. Will consider this pathogenic until proven otherwise. I called microbiology and asked them to ID the pathogen and perform a sensitivity panel. Repeat blood cx's 12/31/21 thus far negative. Echo ordered. [facility] ID consult requested for abx recommendations. (3) Hypotension: 12/30/21 - transient - BP meds held and resolved/has not recurred. (4) Idiopathic cardiomyopathy: Chronic combined systolic and diastolic CHF. He follows with Heart Failure - last seen on 10/30/21. He is on a diuretic sliding scale based on weight - He is to take Torsemide 60mg BID if <255, Torsemide 80mg IBD for 255- 260# and Torsemide 80mg BID + Metolazone for weight >260. Cont IV lasix while here to help with LE edema. Increase to 80mg BID since weight is between 255-260 and he has ongoing edema. He otherwise appears compensated (ie no pulmonary edema). (5) Atrial fibrillation: Rates acceptable. Continue metoprolol 200mg daily. Continue Dabigatran. (6) HTN (hypertension): Transient Hypotension earlier this week; multiple meds placed on hold. BPs today controlled/at goal. Cont off ROSIBEL, etc. (7) Type 2 diabetes mellitus, with long-term current use of insulin: HgbA1C 6.7% Cont Lantus 7u BID Cont novolog SSI Controlled (8) Hypoglycemia: NO further occurrences Likely had hypoglycemia early in stay 2nd to infection/cellulitis (9) BPH with obstruction/lower urinary tract symptoms: Perez removed; voiding fine Continue Alfuzosin daily (10) Hypothyroidism: TSH compensated (07/2021) continue Synthroid 50mcg po daily (11) Chronic obstructive pulmonary disease: stable no flare combivent prn (12) Chronic kidney disease, stage 3: stage 3b baseline CrCl 30-35 daily BMP while on IV lasix (13) Hx of gout: Chronic. Stable continue Allopurinol 300mg po qAM updated pt's at bedside today plan for ID consultation if ID advises IV abx post-d/c will need to determine if those abx can be done at home vs [facility] will keep social work aware of plan Home Health Attestation I certify that this patient is under my care and that I, or a physicians culture media laboratory assistant working with me, had a face to-face encounter that meets the home health [id number] encounter requirements with this patient. The encounter with the patient was in whole, or in part, for the following medical condition, which is the primary reason for home health care (list medical condition): RLE wound I certify that, based on my findings, the following services are medically necessary home health services: My clinical findings support the need for the above services because: OT Assess ADL Status and Restore Function w ADLs PT Assessment for Endurance / Balance / Strength PT Eval for Safety and Mobility PT Eval for Safety, Gait Training, Assistive Devices Skilled Nsg Assessment Skilled Nsg to Assess, Perform and Teach Wound Care Further, I certify that my clinical findings support that this patient is homebound (i.e. absences from home require considerable and taxing effort and are for medical reasons or synagogue services or infrequently or of short duration when for other reasons) because: Supportive Aid - Walker Transportation Assistance/Unable to Leave Home Unassisted Certification for Home Health Services: Based on the above findings, I certify that this patient is confined to the home and needs intermittent retirement care, physical therapy and/or speech therapy or continues to need occupational therapy. The patient is under my care, and I have initiated the establishment of the plan of care. This patient will be followed by a physician who will periodically review the plan of care. Discharge Plan Discharge Items Patient Disposition: Home - Home Health Services Reason For Visit: Right leg cellulitis; Right calf ulcer Discharge Diagnosis: 1. right leg cellulitis - resolved 2. right calf ulcer - stable 3. chronic congestive heart failure Activity: Resume your previous activity Bathing Comment: keep right calf ulcer/dressings clean/dry during bathing Non-emergency contact: Primary Care Provider and Computer Animator Call non-emergency contact if: you have any medication questions, your symptoms worsen, your pain is not controlled, your pain is worsening, you have a fever, your wound has increased redness, your wound has increased drainage and your wound pain has increased Follow-up/Referrals: Candida Andrea CRNP [Primary Care Provider] - 01/05/22 2:00 pm Blanca Aguirre PA-C [Physician Wax Pattern Assembler] - (1 week for your CHF) Diet: Carb Consistent or DM2 and Heart Healthy Fluids: 1500ml (6 cups) Addtl Attending Provider Instructions: Mr Olvera, Jaleel were admitted to [facility] for cellulitis (skin infection) of the right leg. You had developed a blister over the right calf region which then popped, leaving behind an ulcer. The cellulitis is now resolved. The ulcer on the right calf is stable and improving. There was initial concern for infection of the blood stream but this was ruled out and felt to be a "contaminant" (false reading). At time of discharge your weight is 259/260 pounds. Your echocardiogram done on 01/02/22 did NOT show any evidence of infection of the heart. Recommendations - 1. antibiotics - * take linezolid (zyvox) 600mg twice daily x 3 days, first dose TOMORROW MORNING - 01/03/22 2. right leg wound - * ok to shower, but keep the dressings on the right leg clean/dry during the shower * ok to remove the elastic compression sleeve when you sleep or lounging on the couch; would place the sleeve on when you are doing a lot of walking, leaving your home, etc * this sleeve squeezes the fluid out of the leg and allows the ulcer to heal up faster * the home health nurse will change your dressings when they visit your home 3. heart / blood pressure medications - * STOP your lisinopril for now * STOP your hydralazine for now 4. diuretics (water pills) - please continue the following regimen as put in place by Dr Wolf & RIKA Marion -- this is based on your daily weight at home. * If weight is <255 pounds - take torsemide 60mg twice daily * If weight is 255-260 pounds - take torsemide 80mg twice daily * If weight is >260 pounds - take torsemide 80mg twice daily + Metolazone 5mg When you arrive home today plan to take 80mg of your torsemide water pill 5. please ask Ms Aguirre about getting a sleep study when you see her next in the CHF clinic Follow-up - see separate section Return to [facility] if - * you have fevers over 100 degrees * you have worsening redness, drainage, or pain from the right lower leg * you have shortness of breath * any other concerns It was our pleasure to care for you at [facility]! - Dr Valentino Pending Studies at Discharge: No Stand-Alone Forms: My [facility], Smoking Cessation Medications and DC Order Prescriptions: New linezolid [Zyvox] 600 mg tablet 600 mg PO BID 3 Days Qty: 6 RF: 0 Continued cholecalciferol (vitamin D3) 2,000 unit capsule 2,000 unit PO DAILY Qty: 0 RF: 0 metoprolol succinate 200 mg tablet extended release 24 hr 200 mg PO QAM Qty: 90 RF: 1 (DME) pen needle, diabetic [BD Ultra-Fine Mini Pen Needle] 31 gauge x 3/16" needle See Dose Instructions .ROUTE .MEDSUPPLY Qty: 100 RF: 3 (DME) One Touch Ava Meter Kit See Rx Instructions .Route .MEDSUPPLY Qty: 1 RF: 0 levothyroxine 50 mcg tablet 50 mcg PO .COMPLEX Qty: 45 RF: 3 levothyroxine 75 mcg tablet 75 mcg PO .COMPLEX Qty: 45 RF: 3 (DME) lancets [OneTouch Delica Lancets] 33 gauge misc See Dose Instructions .ROUTE .MEDSUPPLY Qty: 100 RF: 3 potassium chloride 20 mEq tablet extended release 60 meq PO BID Qty: 540 RF: 3 (DME) OneTouch Verio test strips Strip See Dose Instructions .ROUTE .MEDSUPPLY Qty: 100 RF: 5 dabigatran etexilate 75 mg capsule 75 mg PO BID Qty: 180 RF: 3 allopurinol 300 mg tablet 300 mg PO QAM Qty: 90 RF: 3 metolazone 5 mg tablet 5 mg PO DAILY Qty: 30 RF: 2 alfuzosin [Uroxatral] 10 mg tablet extended release 24 hr 10 mg PO DAILY Qty: 30 RF: 3 insulin asp prt-insulin aspart 100 unit/mL (70-30) insulin pen 15 unit subcut BID RF: 0 torsemide 20 mg tablet 80 mg PO BID RF: 0 multivitamin [Daily Multi-Vitamin] tablet 1 tab PO DAILY RF: 0 Combivent Respimat 20-100 mcg/actuation mist 2 puff INHALATION Q6H PRN (Reason: sob/wheezing) Qty: 4 RF: 5 isosorbide mononitrate 120 mg tablet extended release 24 hr 120 mg PO QAM Qty: 90 RF: 3 gabapentin 100 mg capsule 100 mg PO TID RF: 0 acetaminophen [Tylenol Extra Strength] 500 mg Tablet 1,000 mg PO Q6H PRN (Reason: pain/fever) RF: 0 Discontinued lisinopril 2.5 mg tablet 2.5 mg PO DAILY Qty: 90 RF: 3 hydralazine 50 mg tablet 50 mg PO TID Qty: 270 RF: 3 Discharge Orders: Discharge Order (Routine); Ordered 01/02/22 Ordered By: Khang Kaiser/Other Patient Handouts: Managing Type 2 Diabetes Admission Data Admit Date/Time: 12/29/21 00:15 Attending Provider: Khang Valentino Admit Provider: Sondra Coon Primary Care Provider: Candida Andrea Other Providers: Sondra Coon ; [facility] ; Shy Crawford ; Yazan Marie ; Bill Coon I. ; Demario Goode II ; Millie Nichols ; Chirag Naidu ; Shayan Elias Other Interventions: Discharge Summary Assessment (RN) Last Done: 01/02/22 17:25 Coding Diagnoses Cellulitis of leg, right L03.115 Bacteremia R78.81 Hypotension I95.9 Idiopathic cardiomyopathy I42.8 Atrial fibrillation I48.91 HTN (hypertension) I10 Type 2 diabetes mellitus, with long-term current use of insulin E11.9; Z79.4 Hypoglycemia E16.2 BPH with obstruction/lower urinary tract symptoms N40.1; N13.8 Hypothyroidism E03.9 Hypothyroidism type: acquired Chronic obstructive pulmonary disease J44.9 Chronic kidney disease, stage 3 N18.30 Chronic kidney disease stage 3 subtype: unspecified whether 3a or 3b Hx of gout Z87.39
== END 2022-01-02 18:46 | disposition home health service (06) | DRG 603 ==
LOC: ED 20:38 → 3N 12-29 00:15 → SUATTDRO 12-29 00:15 → 3N 12-29 01:41

== ENCOUNTER 2022-02-15 21:45 | Observation (INO) ==
[2022-02-15 22:37] LABS: Basophils # (auto) 0.04 K/uL (0-0.2); Basophils % (auto) 0.6 %; Eosinophils # (auto) 0.34 K/uL (0-0.50); Eosinophils % (auto) 5.3 %; Hematocrit (blood only) 45.7 % (40.1-51.0); Immature Granulocytes # (auto) 0.13 K/uL (0.00-0.02); Lymphocytes # (auto) 0.91 K/uL (1.2-3.4); Lymphocytes % (auto) 14.2 %; Mean Corpuscular Hemoglobin 31.5 pg (25.0-34.0); Mean Corpuscular Hgb Conc 30.6 g/dL (32.0-36.0); Mean Corpuscular Volume 102.9 fL (80.0-100.0); Mean Platelet Volume 11.2 fL (9.4-12.4); Monocytes # (auto) 0.66 K/uL (0.24-0.82); Monocytes % (auto) 10.3 %; Neutrophils # (auto) 4.33 K/uL (1.4-6.5); Neutrophils % (auto) 67.6 %; Platelet Count 150 K/uL (130-400); RDW Coefficient of Variation 14.1 % (11.5-14.5); RDW Standard Deviation 53.3 fL (36.4-46.3); Red Blood Count 4.44 M/uL (4.63-6.08); White Blood Count 6.41 K/ul (4.8-10.8)
[2022-02-15 22:54] LABS: INR 1.2 (0.9-1.1); Partial Thromboplastin Ratio 1.5; Partial Thromboplastin Time 40.3 Seconds (21.0-31.0); Prothrombin Time 12.4 Seconds (9.0-12.0)
[2022-02-15 22:55] LABS: Albumin Globulin Ratio 0.9 (0.9-2); Albumin Level 3.5 gm/dl (3.4-5.0); BUN Creatinine Ratio 18.7 (10-20); Bilirubin,Total 0.8 mg/dl (0.2-1.0); Calcium 8.9 mg/dl (8.5-10.1); Globulin 3.7 gm/dl (2.5-4.0); Potassium 4.8 mmol/L (3.5-5.1); Total Protein 7.2 gm/dl (6.0-8.3)
--- NOTE | 2022-02-15 23:35 | Emergency Department Note ---
Impression & Plan Acute lower GI bleeding, Anticoagulant long-term use, Lower extremity edema, A- fib ED Provider Note INFORMANT: Patient ED PROVIDER(S): Philipp Bland MD CHIEF COMPLAINT: Constipation PLAN: Disposition: Admitted Condition: Good Outpatient prescription management: none Referral: None MEDICAL DECISION MAKING: Patient presented complaining of constipation. He also had rectal bleeding. On physical examination there was blood noted on rectal examination without obvious signs of infection or trauma. He did have some stool in the rectal vault. The patient underwent CT imaging as well as blood work. His blood work was unremarkable. CT imaging was concerning for findings of microperforation around the rectum. Radiology also question infection however the patient has no leukocytosis, fever, or findings on physical examination to support. Further management in the hospital will be necessary. IV Zosyn was ordered. I did consult with general surgery. The patient was evaluated in the ER by Torito Higgins PA-C for Dr. Devon Irizarry. Surgery recommended admission to nternal medicine, broad-spectrum antibiotics, and close monitoring with GI consultation. Consultation was made with Dr. Dinesh Romano of the [facility] service. Patient was evaluated in the ER for further management. Triage Nursing notes reviewed and agree them. Vital Signs: reviewed and remarkable for hypertension Differential diagnosis: GI Bleed, Functional constipation, impaction, obstruction, volvulus, metabolic abnormality, infection, neurologic, perforation, as well as other pathologies. Diagnostics interpreted by me: ECG: ECG reveals atrial fibrillation at 60 bpm. Left axis deviation. Incomplete right bundle branch block. Anterior Q waves present. No ST elev ation. Cardiac Monitoring: Cardiac monitoring ordered by me: The patient was placed on continuous cardiac monitoring and observed. It revealed A. fib at 73 bpm. Imaging studies: CT scan as noted above. I refer you to the EMR for further details. HPI: The patient is a 81 year old male who presents to the Emergency Room with complaints of GI bleeding and constipation. This started about 3 to 4 days ago with constipation and is no better. The patient also notes the following associated symptoms, feeling mildly short of breath secondary to abdominal distention, mild lower abdominal pain. The patient has been given a fleets enema by his for relieving factors. After receiving the antibiotic the patient did have some bleeding from the rectum. Current pain is rated as 0/10. Pt denies LOC, headache, fevers, chills, diaphoresis, visual changes, neck pain, chest pain, breathing difficulties, nausea, vomiting, abdominal pain, back pain, melena, urinary symptoms, numbness, weakness, lymphadenopathy, rash, or other complaints. ROS: See above HPI for pertinent positives & negatives. A total of 10 systems reviewed and were otherwise negative. PAST MEDICAL HISTORY:See Below , CKD, A. fib PAST SURGICAL HISTORY:See Below, FAMILY HISTORY:See Below SOCIAL HISTORY:See Below, HOME MEDICATIONS:See Below ALLERGIES:See Below VITALS:See Below PHYSICAL EXAMINATION: GENERAL: Awake, alert, uncomfortable-appearing, in no distress HENT: Normocephalic, atraumatic. Oropharynx unremarkable. EYES: Normal conjunctiva. Sclera non-icteric. NECK: Inspection normal. Non-tender. Supple. No nuchal rigidity. FROM. No masses. RESPIRATORY: Clear to auscultation. No wheezes. No rales. Normal respiratory effort. CARDIAC: Normal rate. Normal rhythm. No murmurs. No rubs. Extremities warm and well perfused. Pulses equal. No JVD. GI: Soft, minimally-distended. Mild left lower quadrant tenderness to palpation. No rebound or guarding. No masses. RECTAL: Mild hemorrhoidal disease noted without any obvious signs of external bleeding. Rectal examination reveals some mild stool within the rectal vault at about 5 cm. Moderate amount of bright red blood present. No obvious sign of trauma. No cellulitis. : Normal scrotum without signs of cellulitis or edema. MUSCULOSKELETAL: Atraumatic. Chest examination reveals no tenderness. The back is symmetrical on inspection without obvious abnormality. There is no CVA tenderness to palpation. No joint edema. LOWER EXTREMITIES: Calves are equal size bilaterally and non-tender. 1+ edema. NEURO: Normal sensorium. No sensory or motor deficits noted. SKIN: No rash or jaundice noted. 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 YEAR 10 YEARS AGO History of bronchoscopy History of cardiac cath NO STENTS History of cataract surgery rt/left History of colonoscopy History of ear surgery LEFT MASTOIDECTOMY (DEAF IN LEFT EAR) History of tonsillectomy History of tooth extraction History of total knee replacement RT S/P cholecystectomy Family History Son Colon cancer Coronary heart disease Sister Hypothyroidism Lymphoma Stroke Mother Aortic aneurysm Diabetes Father Heart disease Myocardial infarction Sister Liver problem Other Hypertension Denies family history of Ovarian cancer Prostate cancer Breast cancer Social History Smoking Status: Former smoker Tobacco Type: Cigarettes Age Started Using Tobacco: 16; Age Quit Using Tobacco: 39; packs per day: 5; Years Smoked: 23; Number of Years Since Quit: 39; Second Hand Exposure: No; Hx Alcohol Use: No Hx Substance Use: No Preferred Language: Salvadorean Communication Ability: Effective Visual Impairment: No Limitations Hearing Ability: Use of Hearing Aid 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 Beliefs That Will Affect Care: None marital status: Current Living Situation: Spouse current occupational status: retired current occupation: retired from career [employer] Feels Safe at Home: Yes Childhood Exposure to Second-Hand Smoke: No caffeine: No during the past year weight has: remained stable Dental Care, Regularly: Yes Physical Activity Frequency: Does not Exercise Seatbelt Use: always Sunscreen Use: No Assistive Devices: Cane Allergies Allergies Allergy/AdvReac Type Severity Reaction Status Date / Time adhesive Allergy Mild RASH Verified 02/12/22 11:48 latex AdvReac Intermediate BLISTERS Verified 02/12/22 11:48 SKIN morphine AdvReac Intermediate DELUSIONS, Verified 02/12/22 11:48 "LOSES TIME" Home Meds Home Medications Medication Instructions Recorded Confirmed multivitamin (Daily Multi-Vitamin) 1 tab PO DAILY 01/20/19 02/16/22 cholecalciferol (vitamin D3) 50 2,000 unit PO DAILY ##0 03/01/19 02/16/22 mcg (2,000 unit) capsule acetaminophen 500 mg tablet 1,000 mg PO Q6H PRN pain/fever 07/19/19 02/16/22 (Tylenol Extra Strength) insulin aspar prot-insulin aspart 15 unit subcut AMPM 10/06/21 02/16/22 100 unit/mL (70-30) subcutaneous pen gabapentin 100 mg capsule 100 mg PO AMPM 01/14/22 02/16/22 metolazone 5 mg tablet 5 mg PO DAILY PRN .weight gain of 02/16/22 02/16/22 3 lbs Previous Rx's Medication Instructions Recorded metoprolol succinate 200 mg 200 mg PO QAM #90 tabs 02/01/21 tablet,extended release 24 hr One Touch Ava Meter Kit #1 ea 02/13/21 pen needle, diabetic 31 gauge x #100 ea 02/13/21 3/16" (BD Ultra-Fine Mini Pen Needle) ipratropium 20 mcg-albuterol 100 2 puff inhalation Q6H PRN 03/05/21 mcg/actuation mist for inhalation sob/wheezing #4 grams (Combivent Respimat) lancets 33 gauge (OneTouch Delica #100 ea 04/02/21 Lancets) blood sugar diagnostic (OneTouch #100 ea 08/12/21 Verio test strips) dabigatran etexilate 75 mg capsule 75 mg PO BID #180 caps 09/08/21 allopurinol 300 mg tablet 300 mg PO QAM #90 tabs 10/10/21 lorazepam 0.5 mg tablet (Ativan) 0.5 mg PO DAILY PRN Sleep #30 tabs 01/06/22 torsemide 20 mg tablet 80 mg PO BID #720 tabs 01/14/22 isosorbide mononitrate 120 mg 120 mg PO QAM #90 tabs 01/15/22 tablet,extended release 24 hr potassium chloride 20 mEq 60 meq PO BID #540 tabs 02/04/22 tablet,extended release acetaminophen 300 mg-codeine 30 mg See Rx Instructions PO Q6H PRN 02/11/22 tablet pain #40 tabs levothyroxine 50 mcg tablet 50 mcg PO .COMPLEX #45 tabs 02/13/22 levothyroxine 75 mcg tablet 75 mcg PO .COMPLEX #45 tabs 02/13/22 Results & Data (ED) Vital Signs Vital Signs - 24 hr 02/15/22 21:45 02/15/22 22:15 02/15/22 22:15 Temperature 36.3 C L Temperature Source Temporal Artery Scan Pulse Rate 80 Pulse Rate [Right Finger] 73 Pulse Rhythm Regular Pulse Rhythm [Right Finger] Irregular Pulse Strength Normal Pulse Strength [Right Finger] Normal Respiratory Rate 20 18 Respiratory Effort / Characteristics Non-Labored Spontaneous Non-Labored Respiratory Depth Normal Normal Respiratory Pattern Regular Blood Pressure 174/77 H Blood Pressure [Right Arm] 177/82 H Blood Pressure Mean 109 Blood Pressure Mean [Right Arm] 113 Blood Pressure Position Sitting Blood Pressure Position [Right Arm] Lying Pulse Oximetry 93 92 Oxygen Delivery Method Room Air Room Air Room Air Sepsis Recent Fever Within 48 Hours No Sepsis New/Unexplained Change in Mental Status N/A Sepsis Action Taken by Nursing No Action Required 02/15/22 23:11 02/16/22 00:36 Temperature Temperature Source Pulse Rate 74 77 Pulse Rate [Right Finger] Pulse Rhythm Pulse Rhythm [Right Finger] Pulse Strength Pulse Strength [Right Finger] Respiratory Rate 24 27 H Respiratory Effort / Characteristics Respiratory Depth Respiratory Pattern Blood Pressure 181/74 H 192/83 H Blood Pressure [Right Arm] Blood Pressure Mean 109 119 Blood Pressure Mean [Right Arm] Blood Pressure Position Blood Pressure Position [Right Arm] Pulse Oximetry 93 98 Oxygen Delivery Method Room Air Room Air Sepsis Recent Fever Within 48 Hours Sepsis New/Unexplained Change in Mental Status Sepsis Action Taken by Nursing Laboratory Data Result diagrams: 02/15/22 22:23 02/15/22 22:23 Lab Results 02/15/22 02/15/22 02/15/22 Range/Units 22:23 22:23 22:23 WBC 6.41 (4.8-10.8) K/ul RBC 4.44 L (4.63-6.08) M/uL Hgb 14.0 (14.0-18.0) g/dl Hct 45.7 (40.1-51.0) % MCV 102.9 H (80.0-100.0) fL MCH 31.5 (25.0-34.0) pg MCHC 30.6 L (32.0-36.0) g/dL RDW Std Deviation 53.3 H (36.4-46.3) fL RDW Coeff of Liam 14.1 (11.5-14.5) % Plt Count 150 (130-400) K/uL MPV 11.2 (9.4-12.4) fL Immature Gran % (Auto) 2.0 % Neut % (Auto) 67.6 % Lymph % (Auto) 14.2 % [place] % (Auto) 10.3 % Eos % (Auto) 5.3 % Baso % (Auto) 0.6 % Neut # (Auto) 4.33 (1.4-6.5) K/uL Lymph # (Auto) 0.91 L (1.2-3.4) K/uL [place] # (Auto) 0.66 (0.24-0.82) K/uL Eos # (Auto) 0.34 (0-0.50) K/uL Baso # (Auto) 0.04 (0-0.2) K/uL Immature Gran # (Auto) 0.13 H (0.00-0.02) K/uL PT 12.4 H (9.0-12.0) Seconds INR 1.2 H (0.9-1.1) APTT 40.3 H (21.0-31.0) Seconds PTT Ratio 1.5 Sodium (136-145) mmol/L Potassium (3.5-5.1) mmol/L Chloride (98-107) mmol/L Carbon Dioxide (21-32) mmol/L Anion Gap (3-11) BUN (6-23) mg/dl Creatinine (0.6-1.4) mg/dl Est Cr Clr Drug Dosing ml/min Est GFR ( Amer) ml/min Est GFR (Non-Af Amer) ml/min BUN/Creatinine Ratio (10-20) Glucose (70-99(Fasting)) mg/dl Calcium (8.5-10.1) mg/dl Total Bilirubin (0.2-1.0) mg/dl AST (13-39) U/L ALT (7-52) U/L Alkaline Phosphatase (34-104) U/L Total Protein (6.0-8.3) gm/dl Albumin (3.4-5.0) gm/dl Globulin (2.5-4.0) gm/dl Albumin/Globulin Ratio (0.9-2) SARS-CoV-2, RNA, NAAT (NEGATIVE) Blood Type O Positive Antibody Screen NEGATIVE 02/15/22 02/16/22 Range/Units 22:23 00:33 WBC (4.8-10.8) K/ul RBC (4.63-6.08) M/uL Hgb (14.0-18.0) g/dl Hct (40.1-51.0) % MCV (80.0-100.0) fL MCH (25.0-34.0) pg MCHC (32.0-36.0) g/dL RDW Std Deviation (36.4-46.3) fL RDW Coeff of Liam (11.5-14.5) % Plt Count (130-400) K/uL MPV (9.4-12.4) fL Immature Gran % (Auto) % Neut % (Auto) % Lymph % (Auto) % [place] % (Auto) % Eos % (Auto) % Baso % (Auto) % Neut # (Auto) (1.4-6.5) K/uL Lymph # (Auto) (1.2-3.4) K/uL [place] # (Auto) (0.24-0.82) K/uL Eos # (Auto) (0-0.50) K/uL Baso # (Auto) (0-0.2) K/uL Immature Gran # (Auto) (0.00-0.02) K/uL PT (9.0-12.0) Seconds INR (0.9-1.1) APTT (21.0-31.0) Seconds PTT Ratio Sodium 141 (136-145) mmol/L Potassium 4.8 (3.5-5.1) mmol/L Chloride 105 (98-107) mmol/L Carbon Dioxide 31 (21-32) mmol/L Anion Gap 5 (3-11) BUN 36 H (6-23) mg/dl Creatinine 1.93 H (0.6-1.4) mg/dl Est Cr Clr Drug Dosing 39.0 ml/min Est GFR ( Amer) 37.0 ml/min Est GFR (Non-Af Amer) 32.0 ml/min BUN/Creatinine Ratio 18.7 (10-20) Glucose 114 H (70-99(Fasting)) mg/dl Calcium 8.9 (8.5-10.1) mg/dl Total Bilirubin 0.8 (0.2-1.0) mg/dl AST 42 H (13-39) U/L ALT 26 (7-52) U/L Alkaline Phosphatase 161 H (34-104) U/L Total Protein 7.2 (6.0-8.3) gm/dl Albumin 3.5 (3.4-5.0) gm/dl Globulin 3.7 (2.5-4.0) gm/dl Albumin/Globulin Ratio 0.9 (0.9-2) SARS-CoV-2, RNA, NAAT NEGATIVE (NEGATIVE) Blood Type Antibody Screen Administered Medications Discontinued Medications Piperacillin Sod/Tazobactam Sod (Zosyn) 4.5 gm in 120 mls @ 240 mls/hr IV NOW ONE Stop: 02/16/22 00:39 Last Admin: 02/16/22 00:37 Dose: 240 mls/hr Documented By: AFIA Discharge Plan Visit Data Chief Complaint: Constipation Stated Complaint: CONSTIPATION, TRIED ENEMA, NOW BLEEDING ED Provider: Philipp Bland Discharge Problem: Acute lower GI bleeding, Anticoagulant long-term use, Lower extremity edema, A- fib Forms Stand Alone Forms: My [facility] Prescriptions Prescriptions: No Action cholecalciferol (vitamin D3) 2,000 unit capsule 2,000 unit PO DAILY Qty: 0 Label Comments: TAKE WITH THE MAIN MEAL OF THE DAY. Rx Instructions: TAKE WITH MAIN MEAL OF THE DAY metoprolol succinate 200 mg tablet extended release 24 hr 200 mg PO QAM Qty: 90 1RF (DME) pen needle, diabetic [BD Ultra-Fine Mini Pen Needle] 31 gauge x 3/16" needle See Dose Instructions .ROUTE .MEDSUPPLY Qty: 100 3RF Rx Instructions: Use with insulin BID (DME) One Touch Ava Meter Kit See Rx Instructions .Route .MEDSUPPLY Qty: 1 0RF Rx Instructions: Glucometer .test BID; (DME) lancets [OneTouch Delica Lancets] 33 gauge misc See Dose Instructions .ROUTE .MEDSUPPLY Qty: 100 3RF Rx Instructions: As directed (DME) OneTouch Verio test strips Strip See Dose Instructions .ROUTE .MEDSUPPLY Qty: 100 5RF Rx Instructions: test BID dabigatran etexilate 75 mg capsule 75 mg PO BID Qty: 180 3RF allopurinol 300 mg tablet 300 mg PO QAM Qty: 90 3RF torsemide 20 mg tablet 80 mg PO BID Qty: 720 1RF potassium chloride 20 mEq tablet extended release 60 meq PO BID Qty: 540 3RF acetaminophen-codeine 300-30 mg tablet See Rx Instructions PO Q6H PRN (Reason: pain) Qty: 40 0RF Rx Instructions: 1-2 tablets orally every 6 hours PRN; levothyroxine 75 mcg tablet 75 mcg PO .COMPLEX Qty: 45 3RF Rx Instructions: 75 mcg PO every other day, rotating with 50mcg tabs; levothyroxine 50 mcg tablet 50 mcg PO .COMPLEX Qty: 45 3RF Rx Instructions: 50 mcg PO every other day, rotating with 75mcg tabs; isosorbide mononitrate 120 mg tablet extended release 24 hr 120 mg PO QAM Qty: 90 3RF lorazepam [Ativan] 0.5 mg tablet 0.5 mg PO DAILY PRN (Reason: Sleep) Qty: 30 0RF insulin asp prt-insulin aspart 100 unit/mL (70-30) insulin pen 15 unit subcut AMPM multivitamin [Daily Multi-Vitamin] tablet 1 tab PO DAILY Combivent Respimat 20-100 mcg/actuation mist 2 puff INHALATION Q6H PRN (Reason: sob/wheezing) Qty: 4 5RF gabapentin 100 mg capsule 100 mg PO AMPM acetaminophen [Tylenol Extra Strength] 500 mg Tablet 1,000 mg PO Q6H PRN (Reason: pain/fever) metolazone 5 mg tablet 5 mg PO DAILY PRN (Reason: .weight gain of 3 lbs) Referrals Referrals: Candida Andrea CRNP [Primary Care Provider] -
[2022-02-16] MEDS ORDERED: PIPERACILLIN/TAZOBACTAM 4.5 GM/120 ML BAG IV ONE (00:10)
--- NOTE | 2022-02-16 00:47 | Surgery Consultation ---
Date of Consultation February 16, 2022 Assessment & Plan (1) Acute lower GI bleeding: I discussed with the treating emergency room physician we feel it is best to have the patient admitted on the hospital service due to his multiple medical problems and presenting symptomatology/imaging. From a surgical perspective we recommend the following: It does not appear that the patient has an underlying infectious problem such as foreign years gangrene, however the patient may have a microperforation of his rectum. This may be the result of the enema patient utilized at home or also related to severe constipation. As the patient does not have a surgical abdomen, leukocytosis, and is hemodynamically stable and an emergent surgical procedure is not indicated at this time Would recommend keeping the patient n.p.o. for the present time Recommend gentle hydration with IV fluids Recommend continuing broad-spectrum antibiotics. The patient has received Zosyn in the emergency department Recommend requesting a GI consultation for consideration of lower endoscopy Would recommend holding the patient's Pradaxa for the present time Additional plan as directed by the primary service I discussed the above plan with my attending surgeon Dr. Irizarry Supervising Physician Co-Signing Physician Notes As per Torito Lantigua physician assistant women's soccer coach Since last evaluation last evening this morning the patient feels a lot better he is now having rectal discharge no more bleeding no pain only issue is he is frequency on urination On rectal exam perianal area free of any erythema tenderness or crepitation Digital exam the sphincter is tight and the patient does experience discomfort with the exam but no obvious blood on digital extraction No surgery planned at this time we will review the CAT scan done last evening with our radiologist History of Present Illness Reason for Consultation: Severe constipation with concern for perforation of rectum History of Present Illness This is an 81-year-old male who presented to the emergency department secondary to severe constipation. Patient reports that he has not had a bowel movement in approximately 2 to 3 days. Because of this the patient attempted to take prune juice without success. The patient is passing flatus but because of his constipation he tried a fleets enema at home at approximately 9:00 PM. He again had no success with this modality prompting his visit to the emergency department. As noted above the patient has not had a bowel movement in approximately 2 to 3 days but he is passing flatus. He reports only small amount of abdominal pain in a generalized fashion but this appears to be greatest on the right side of his abdomen. He does not note any modifying factors to his abdominal pain. The pain does not radiate. He denies any nausea or vomiting. He denies any fevers, shakes, chills. Patient notes that his most recent oral intake was at approximately 5 or 6:00 PM last evening. The patient denies any rectal pain. Patient notes that he typically does not have any issues with constipation and usually has more loose bowel movements. The patient did add that he recently started taking Tylenol with codeine and he is taking this medication for lower extremity wounds. In the emergency department the patient did have a small bowel movement with some bloody stool. In the emergency department the patient did have labs and imaging which I independently reviewed. CT scan of the abdomen and pelvis showed patient was status postcholecystectomy without any significant biliary distention. The pancreas, spleen, and adrenal glands. Unremarkable. There is no evidence of small bowel obstruction and the stomach appeared unremarkable. There is fairly significant stool burden noted throughout the colon. There is also some scattered soft tissue in the distal rectum and anal region which extended into the superficial subcutaneous fat which was concerning for gas-forming infectious process or perhaps a microperforation of the rectum. There is also noted chronic aortic dissection involving the distal abdominal aorta extending into the iliac arteries. Labs include a CBC her white blood cell count, hemoglobin, and hematocrit were normal. The patient's platelet count was noted to be normal. His INR was 1.2 with a PTT of 40.3. Chemistry profile showed sodium and potassium are normal. His BUN and creatinine were 36 and 1.9. Review of records show that his creatinine was near his baseline. There is no significant elevation of his LFTs other than a slight elevation of the AST at 42 and an slight elevation of the alkaline phosphatase at 160. An EKG showed atrial fibrillation with a well-controlled heart rate at 68. There were no changes indicative of acute ischemia. The patient does note a history of multiple medical problems including chronic kidney disease, congestive heart failure, diabetes with chronic lower extremity wounds, COPD, leukemia which is in remission, and a chronic aortic dissection. At the time of my interview the patient was resting comfortably in bed. He was in no distress. Allergies Allergy/AdvReac Type Severity Reaction Status Date / Time adhesive Allergy Mild RASH Verified 02/12/22 11:48 latex AdvReac Intermediate BLISTERS Verified 02/12/22 11:48 SKIN morphine AdvReac Intermediate DELUSIONS, Verified 02/12/22 11:48 "LOSES TIME" Home Medications Medication Instructions Recorded Confirmed Type multivitamin (Daily Multi-Vitamin) 1 tab PO DAILY 01/20/19 02/16/22 History cholecalciferol (vitamin D3) 50 2,000 unit PO DAILY ##0 03/01/19 02/16/22 History mcg (2,000 unit) capsule acetaminophen 500 mg tablet 1,000 mg PO Q6H PRN pain/fever 07/19/19 02/16/22 History (Tylenol Extra Strength) metoprolol succinate 200 mg 200 mg PO QAM #90 tabs 02/01/21 02/16/22 Rx tablet,extended release 24 hr One Touch Ava Meter Kit #1 ea 02/13/21 02/12/22 Rx pen needle, diabetic 31 gauge x #100 ea 02/13/21 02/12/22 Rx 3/16" (BD Ultra-Fine Mini Pen Needle) ipratropium 20 mcg-albuterol 100 2 puff inhalation Q6H PRN 03/05/21 02/16/22 Rx mcg/actuation mist for inhalation sob/wheezing #4 grams (Combivent Respimat) lancets 33 gauge (OneTouch Delica #100 ea 04/02/21 02/12/22 Rx Lancets) blood sugar diagnostic (OneTouch #100 ea 08/12/21 02/12/22 Rx Verio test strips) dabigatran etexilate 75 mg capsule 75 mg PO BID #180 caps 09/08/21 02/16/22 Rx insulin aspar prot-insulin aspart 15 unit subcut AMPM 10/06/21 02/16/22 History 100 unit/mL (70-30) subcutaneous pen allopurinol 300 mg tablet 300 mg PO QAM #90 tabs 10/10/21 02/16/22 Rx lorazepam 0.5 mg tablet (Ativan) 0.5 mg PO DAILY PRN Sleep #30 tabs 01/06/22 02/16/22 Rx gabapentin 100 mg capsule 100 mg PO AMPM 01/14/22 02/16/22 History torsemide 20 mg tablet 80 mg PO BID #720 tabs 01/14/22 02/16/22 Rx isosorbide mononitrate 120 mg 120 mg PO QAM #90 tabs 01/15/22 02/16/22 Rx tablet,extended release 24 hr potassium chloride 20 mEq 60 meq PO BID #540 tabs 02/04/22 02/16/22 Rx tablet,extended release acetaminophen 300 mg-codeine 30 mg See Rx Instructions PO Q6H PRN 02/11/22 02/16/22 Rx tablet pain #40 tabs levothyroxine 50 mcg tablet 50 mcg PO .COMPLEX #45 tabs 02/13/22 02/16/22 Rx levothyroxine 75 mcg tablet 75 mcg PO .COMPLEX #45 tabs 02/13/22 02/16/22 Rx metolazone 5 mg tablet 5 mg PO DAILY PRN .weight gain of 02/16/22 02/16/22 History 3 lbs Patient History Medical History (Updated 02/16/22 @ 03:33 by Dinesh Romano MD) Allergic rhinitis Arthritis BPH (benign prostatic hyperplasia) Cardiomyopathy Chronic combined systolic and diastolic CHF (congestive heart failure) Chronic kidney disease, stage 3 Chronic obstructive pulmonary disease Claustrophobia Congestive heart failure [facility] COPD (chronic obstructive pulmonary disease) Diabetic nephropathy associated with type 2 diabetes mellitus Hearing deficit 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 YEAR 10 YEARS AGO History of bronchoscopy History of cardiac cath NO STENTS History of cataract surgery rt/left History of colonoscopy History of ear surgery LEFT MASTOIDECTOMY (DEAF IN LEFT EAR) History of tonsillectomy History of tooth extraction History of total knee replacement RT S/P cholecystectomy Family History Son Colon cancer Coronary heart disease Sister Hypothyroidism Lymphoma Stroke Mother Aortic aneurysm Diabetes Father Heart disease Myocardial infarction Sister Liver problem Other Hypertension Denies family history of Ovarian cancer Prostate cancer Breast cancer Social History Smoking Status: Former smoker Tobacco Type: Cigarettes Age Started Using Tobacco: 16; Age Quit Using Tobacco: 39; packs per day: 5; Years Smoked: 23; Number of Years Since Quit: 39; Second Hand Exposure: No; Hx Alcohol Use: No Hx Substance Use: No Preferred Language: Sammarinese Communication Ability: Effective Visual Impairment: No Limitations Hearing Ability: Use of Hearing Aid Sr. Manager Required: No Beliefs That Will Affect Care: None marital status: Current Living Situation: Spouse current occupational status: retired current occupation: retired from career [employer] for [employer] Feels Safe at Home: Yes Childhood Exposure to Second-Hand Smoke: No caffeine: No during the past year weight has: remained stable Dental Care, Regularly: Yes Physical Activity Frequency: Does not Exercise Seatbelt Use: always Sunscreen Use: No Assistive Devices: Cane Review of Systems Constitutional: no fever and no chills Eyes: no eye pain Ear, Nose, Mouth, Throat: no ear pain Respiratory: no cough and no dyspnea Cardiovascular: no chest pain Gastrointestinal: as per Subjective / HPI, + abdominal pain, + constipation and + blood in stools; no nausea, no vomiting and no diarrhea/loose stools Genitourinary: no dysuria or no flank pain Musculoskeletal: no back pain Integumentary: no rash Neurologic: no localized weakness Physical Exam Constitutional: WD/WN, vitals as above Eyes: no conjunctival abnormality ENMT: Ears: no hearing impairment and no external ear abnormality Mouth: no oropharynx abnormality Neck: trachea midline Respiratory: normal respiratory effort; no respiratory distress and no labored breathing Breath sounds have a slight decrease at the bases bilaterally Cardiovascular: Rate/Rhythm: + irregularly irregular Gastrointestinal (Abdomen): Abdomen is rotund with mild distention. Bowel sounds are present. There is only slight tenderness with palpation just to the right of the patient's umbilicus. I did not appreciate any masses or hernias. There is no rebound tenderness or guarding. The patient's rectum and perineal area was examined. There is no crepitus in the soft tissue. There is no erythema. There are no areas of eschar. There are no open wounds or areas of drainage. Digital rectal exam some bloody stool was noted. I did not appreciate any masses, hemorrhoids, or fissures. I did not appreciate any crepitus or defects in the soft tissue. Sphincter tone was noted to be normal. Musculoskeletal: No gross orthopedic abnormalities. Patient's lower extremities were wrapped with dressings bilaterally Skin: no rashes Neurologic: moves all extremities Psychiatric: A+Ox3, euthymic affect Results & Data ([facility]) Vital Signs (Past 12 Hours) Vital Signs Temp Pulse Pulse Resp BP BP Pulse Ox 02/15/22 22:15 02/15/22 22:15 73 18 177/82 H 92 02/15/22 21:45 36.3 C L 80 20 174/77 H 93 O2 Del Method 02/15/22 22:15 Room Air 02/15/22 22:15 Room Air 02/15/22 21:45 Room Air PG Care Time/CCT Total # of Minutes Spent Total Time Spent with Patient: Total time spent is greater than 50% in coordination of care (as documented) at patient's floor/unit and/or counseling patient: Coding Level of Care Code 52117 Inpt Consult Level 5 Diagnoses Acute lower GI bleeding K92.2
--- NOTE | 2022-02-16 02:02 | History & Physical Report ---
Date of Service February 16, 2022 Assessment & Plan (1) Acute lower GI bleeding: Plan: Acute lower GI bleeding- Likely secondary to mechanical trauma of given an enema. CT suggestion of a possible microperforation General surgery is assessed while in the ED, and feels no acute surgery as needed Admit to medical service on IV Zosyn H&H every 6 hours Hold Pradaxa, but not reversing N.p.o. except essential medications 7 cm liver lesion noted on CT, further work-up when GI bleeding is controlled (2) A-fib: Plan: Atrial fibrillation/hypertension/cardiomyopathy- Hold Pradaxa for, isosorbide mononitrate, as needed metolazone, metoprolol succinate, potassium chloride, torsemide The patient will be admitted to telemetry for serial cardiac enzymes, serial EKG's, cardiac rhythm monitoring and a 2-D echocardiogram with Dopplers. (3) Chronic kidney disease, stage 4 (severe): Plan: Creatinine 1.93 upon admission, with range 2.11-2.95 Follow serially (4) Hypertension: (5) Diabetes mellitus type 2, controlled, with complications: Plan: Holding 70-30 Placed on Accu-Cheks every 4 hours with NovoLog coverage per scale (6) Chronic combined systolic and diastolic CHF (congestive heart failure): Plan: Holding diuretics as noted (7) BPH (benign prostatic hyperplasia): Plan: Monitor urine output (8) Cardiomyopathy: Plan: See above (9) Dissection of distal aorta: History of Present Illness Chief Complaint: The patient presents to the emergency department with 3 days of constipation, unrelieved by his usual prune juice, who then got an enema from his , and then had significant rectal bleeding, which caused him to present to the emergency department Primary Care Provider: JOSE Leon The patient is an 81-year-old male with a past medical history including atrial fibrillation, chronic venous insufficiency, CKD stage IV, chronic right-sided CHF, right lower extremity cellulitis, venous stasis ulcer, hypertension, sacroiliitis, myofascial pain, CML, moderate aortic regurgitation, peripheral neuropathy, thoracolumbar radiculopathy, TMAIKA, dissection of distal aorta, diabetic peripheral neuropathy, BPH with LUTS, BPPV, long-term anticoagulant use, vitamin D deficiency, chronic combined systolic and diastolic CHF, and diabetic nephropathy. He presents to the emergency department with rectal bleeding as noted above. Allergies Allergy/AdvReac Type Severity Reaction Status Date / Time adhesive Allergy Mild RASH Verified 02/12/22 11:48 latex AdvReac Intermediate BLISTERS Verified 02/12/22 11:48 SKIN morphine AdvReac Intermediate DELUSIONS, Verified 02/12/22 11:48 "LOSES TIME" Home Medications Medication Instructions Recorded Confirmed Type multivitamin (Daily Multi-Vitamin) 1 tab PO DAILY 01/20/19 02/16/22 History cholecalciferol (vitamin D3) 50 2,000 unit PO DAILY ##0 03/01/19 02/16/22 History mcg (2,000 unit) capsule acetaminophen 500 mg tablet 1,000 mg PO Q6H PRN pain/fever 07/19/19 02/16/22 History (Tylenol Extra Strength) metoprolol succinate 200 mg 200 mg PO QAM #90 tabs 02/01/21 02/16/22 Rx tablet,extended release 24 hr One Touch Ava Meter Kit #1 ea 02/13/21 02/12/22 Rx pen needle, diabetic 31 gauge x #100 ea 02/13/21 02/12/22 Rx 3/16" (BD Ultra-Fine Mini Pen Needle) ipratropium 20 mcg-albuterol 100 2 puff inhalation Q6H PRN 03/05/21 02/16/22 Rx mcg/actuation mist for inhalation sob/wheezing #4 grams (Combivent Respimat) lancets 33 gauge (OneTouch Delica #100 ea 04/02/21 02/12/22 Rx Lancets) blood sugar diagnostic (OneTouch #100 ea 08/12/21 02/12/22 Rx Verio test strips) dabigatran etexilate 75 mg capsule 75 mg PO BID #180 caps 09/08/21 02/16/22 Rx insulin aspar prot-insulin aspart 15 unit subcut AMPM 10/06/21 02/16/22 History 100 unit/mL (70-30) subcutaneous pen allopurinol 300 mg tablet 300 mg PO QAM #90 tabs 10/10/21 02/16/22 Rx lorazepam 0.5 mg tablet (Ativan) 0.5 mg PO DAILY PRN Sleep #30 tabs 01/06/22 02/16/22 Rx gabapentin 100 mg capsule 100 mg PO AMPM 01/14/22 02/16/22 History torsemide 20 mg tablet 80 mg PO BID #720 tabs 01/14/22 02/16/22 Rx isosorbide mononitrate 120 mg 120 mg PO QAM #90 tabs 01/15/22 02/16/22 Rx tablet,extended release 24 hr potassium chloride 20 mEq 60 meq PO BID #540 tabs 02/04/22 02/16/22 Rx tablet,extended release acetaminophen 300 mg-codeine 30 mg See Rx Instructions PO Q6H PRN 02/11/22 02/16/22 Rx tablet pain #40 tabs levothyroxine 50 mcg tablet 50 mcg PO .COMPLEX #45 tabs 02/13/22 02/16/22 Rx levothyroxine 75 mcg tablet 75 mcg PO .COMPLEX #45 tabs 02/13/22 02/16/22 Rx metolazone 5 mg tablet 5 mg PO DAILY PRN .weight gain of 02/16/22 02/16/22 History 3 lbs Past Med/Surg History Medical History (Updated 02/16/22 @ 03:33 by Dinesh Romano MD) Allergic rhinitis Arthritis BPH (benign prostatic hyperplasia) Cardiomyopathy Chronic combined systolic and diastolic CHF (congestive heart failure) Chronic kidney disease, stage 3 Chronic obstructive pulmonary disease Claustrophobia Congestive heart failure [facility] COPD (chronic obstructive pulmonary disease) Diabetic nephropathy associated with type 2 diabetes mellitus Hearing deficit 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 YEAR 10 YEARS AGO History of bronchoscopy History of cardiac cath NO STENTS History of cataract surgery rt/left History of colonoscopy History of ear surgery LEFT MASTOIDECTOMY (DEAF IN LEFT EAR) History of tonsillectomy History of tooth extraction History of total knee replacement RT S/P cholecystectomy Family History Son Colon cancer Coronary heart disease Sister Hypothyroidism Lymphoma Stroke Mother Aortic aneurysm Diabetes Father Heart disease Myocardial infarction Sister Liver problem Other Hypertension Denies family history of Ovarian cancer Prostate cancer Breast cancer Social History Smoking Status: Former smoker Tobacco Type: Cigarettes Age Started Using Tobacco: 16; Age Quit Using Tobacco: 39; packs per day: 5; Years Smoked: 23; Number of Years Since Quit: 39; Second Hand Exposure: No; Hx Alcohol Use: No Hx Substance Use: No Preferred Language: [place]ican Communication Ability: Effective Visual Impairment: No Limitations Hearing Ability: Use of Hearing Aid Shellacker Required: No Beliefs That Will Affect Care: None marital status: Current Living Situation: Spouse current occupational status: retired current occupation: retired from [employer] Feels Safe at Home: Yes Childhood Exposure to Second-Hand Smoke: No caffeine: No during the past year weight has: remained stable Dental Care, Regularly: Yes Physical Activity Frequency: Does not Exercise Seatbelt Use: always Sunscreen Use: No Assistive Devices: Cane Review of Systems Review of Systems: The patient denies chest pain, palpitations, shortness of breath, dyspnea on exertion, cough, sore throat, fevers, chills, sweats, fatigue, nausea, vomiting, blood in urine, dysuria, urinary frequency or urgency, lightheadedness, dizziness, headache, memory loss, loss of consciousness, rash, imbalance, focal or generalized weakness, numbness or tingling in arms or legs, generalized arthralgias or myalgias, neck pain, or night sweats. The review of systems is otherwise negative other than for that already noted above, and at least 10 systems have been reviewed. Physical Exam Physical Exam: The patient is awake, alert and oriented 3, well developed and well nourished, normocephalic and atraumatic, lying in bed and in no acute distress. HEENT--PERRL, EOMI, mucous membranes and oropharynx normal. Neck--supple. No JVD. No bruits. Thyroid normal, trachea midline, no adenopathy. Heart--normal S1 and S2. No murmurs, rubs or gallops. Lungs--clear bilaterally, no respiratory distress, no accessory muscle use. Abdomen--normal bowel sounds and soft. Nontender. Mildly firm. Mildly distended. Extremities--no cyanosis or clubbing. No edema. Dermatologic--normal skin turgor, normal color, no abnormal lymph nodes, no rash. Neurologic--cranial nerves II through XII grossly intact. Rheumatologic--limited exam Psychiatric--normal affect. Results & Data Results & Data ([facility]) Vital Signs (Past 12 Hours) Vital Signs Temp Pulse Pulse Resp BP BP Pulse Ox 02/16/22 00:36 77 27 H 192/83 H 98 02/15/22 23:11 74 24 181/74 H 93 02/15/22 22:15 02/15/22 22:15 73 18 177/82 H 92 02/15/22 21:45 36.3 C L 80 20 174/77 H 93 O2 Del Method 02/16/22 00:36 Room Air 02/15/22 23:11 Room Air 02/15/22 22:15 Room Air 02/15/22 22:15 Room Air 02/15/22 21:45 Room Air Laboratory Results Laboratory Results WBC 6.41 K/ul (4.8-10.8) 02/15/22 22:23 RBC 4.44 M/uL (4.63-6.08) L 02/15/22 22:23 Hgb 14.0 g/dl (14.0-18.0) 02/15/22 22:23 Hct 45.7 % (40.1-51.0) 02/15/22 22:23 MCV 102.9 fL (80.0-100.0) H 02/15/22 22:23 MCH 31.5 pg (25.0-34.0) 02/15/22 22:23 MCHC 30.6 g/dL (32.0-36.0) L 02/15/22 22:23 RDW Std Deviation 53.3 fL (36.4-46.3) H 02/15/22 22:23 RDW Coeff of Liam 14.1 % (11.5-14.5) 02/15/22 22:23 Plt Count 150 K/uL (130-400) 02/15/22 22:23 MPV 11.2 fL (9.4-12.4) 02/15/22 22:23 Immature Gran % (Auto) 2.0 % 02/15/22 22: Neut % (Auto) 67.6 % 02/15/22 22:23 Lymph % (Auto) 14.2 % 02/15/22 22:23 [place] % (Auto) 10.3 % 02/15/22 22:23 Eos % (Auto) 5.3 % 02/15/22 22:23 Baso % (Auto) 0.6 % 02/15/22 22: Neut # (Auto) 4.33 K/uL (1.4-6.5) 02/15/22 22: Lymph # (Auto) 0.91 K/uL (1.2-3.4) L 02/15/22 22:23 [place] # (Auto) 0.66 K/uL (0.24-0.82) 02/15/22 22: Eos # (Auto) 0.34 K/uL (0-0.50) 02/15/22 22: Baso # (Auto) 0.04 K/uL (0-0.2) 02/15/22 22: Immature Gran # (Auto) 0.13 K/uL (0.00-0.02) H 02/15/22 22: PT 12.4 Seconds (9.0-12.0) H 02/15/22 22: INR 1.2 (0.9-1.1) H 02/15/22 22:23 APTT 40.3 Seconds (21.0-31.0) H 02/15/22 22: PTT Ratio 1.5 02/15/22 22: Sodium 141 mmol/L (136-145) 02/15/22 22:23 Potassium 4.8 mmol/L (3.5-5.1) 02/15/22 22: Chloride 105 mmol/L (98-107) 02/15/22 22:23 Carbon Dioxide 31 mmol/L (21-32) 02/15/22 22:23 Anion Gap 5 (3-11) 02/15/22 22:23 BUN 36 mg/dl (6-23) H 02/15/22 22:23 Creatinine 1.93 mg/dl (0.6-1.4) H 02/15/22 22: Est Cr Clr Drug Dosing 39.0 ml/min 02/15/22 22:23 Est GFR ( Amer) 37.0 ml/min 02/15/22 22:23 Est GFR (Non-Af Amer) 32.0 ml/min 02/15/22 22:23 BUN/Creatinine Ratio 18.7 (10-20) 02/15/22 22:23 Glucose 114 mg/dl (70-99(Fasting)) H 02/15/22 22:23 POC Glucose 123 mg/dl (70-99) H 02/16/22 03:22 Calcium 8.9 mg/dl (8.5-10.1) 02/15/22 22:23 Total Bilirubin 0.8 mg/dl (0.2-1.0) 02/15/22 22:23 AST 42 U/L (13-39) H 02/15/22 22:23 ALT 26 U/L (7-52) 02/15/22 22:23 Alkaline Phosphatase 161 U/L (34-104) H 02/15/22 22:23 Total Protein 7.2 gm/dl (6.0-8.3) 02/15/22 22:23 Albumin 3.5 gm/dl (3.4-5.0) 02/15/22 22:23 Globulin 3.7 gm/dl (2.5-4.0) 02/15/22 22:23 Albumin/Globulin Ratio 0.9 (0.9-2) 02/15/22 22:23 SARS-CoV-2, RNA, NAAT NEGATIVE (NEGATIVE) 02/16/22 00:33 Blood Type O Positive 02/15/22 22:23 Antibody Screen NEGATIVE 02/15/22 22:23 Diagnostic Findings [facility] Patient: JAMEEL BARCENAS (Male) : 42 Status: ER Date: 02/15/22 23:13 Room #: History: severe constipation and severe abdominal pains Slices: [phone] Priors: Tech: Lupe Ham @ [phone] Exams: CT ABDOMEN & PELVIS Without Contrast Contrast: Accession Numbers: [id number] Referring Physician: REFERRED SELF Preliminary Findings Only See Final Report For Complete Findings ADDENDUM - Added by Mariana Mendoza MD on 02/16/2022 12:04 AM (-07:00) In addition, in the context of fecal impaction, differential diagnosis includes microperforation, possibly related to recently attempted enema. CT ABDOMEN & PELVIS Without Contrast: Comparison: 09/20/2018. Cardiomegaly. Mild pleural thickening along the lung bases with subpleural atelectasis or interstitial change. Otherwise clear lung bases. Mild nodular margins of the liver, cannot exclude early cirrhosis. Heterogeneous lesion within the left liver lobe measuring 7 cm otherwise incompletely characterized. Follow-up recommended with three-phase scan. Status post cholecystectomy. No significant biliary distention. Unremarkable pancreas, spleen and bilateral adrenal glands. Unremarkable stomach and small bowel. Moderate to abundant fecal debris within the colon more significant in the distal sigmoid and rectum concerning for fecal impaction. Scattered soft tissue air surrounding the distal rectum and anal region extending into the superficial subcutaneous fat along the gluteal fold concerning for gas forming infectious process or Leni gangrene. Atherosclerotic disease of aorta. Double wall calcification with ectasia of the distal abdominal aorta extending to the common iliac artery consistent with known history of chronic dissection. Degenerative disease of the spine with osteopenia. Radiologist: Mariana Mendoza MD Study ready at 23:19 and initial results transmitted at 23:59 Communications: Clear Time Type Notes 02/16/22 00:02 Call Doctor Regarding Oth er, called Dr. Bland on 02/16 00:02 (-04:00) 02/16/22 01:34 Verify Receipt Verified r eceipt with ER Clerk Street going to Dr. Bland on 02/16 01:34 (-04:00) *This report constitutes a preliminary interpretation only. Non-acute findings felt to be unrelated to the clinical presentation may not be discussed in this report. The study will be interpreted and a final report will be generated by the local Radiologist the following shift. To reach the hospital radiology department call [phone]. Code Status & VTE Plan Code Status Full code VTE Prophylaxis Plan VTE Prophylaxis will be ordered: Yes PG Care Time/CCT Total # of Minutes Spent Total Time Spent with Patient: Total time spent is greater than 50% in coordination of care (as documented) at patient's floor/unit and/or counseling patient: Coding Level of Care Code 37954 Initial Inpt Care Lvl 3 Diagnoses Acute lower GI bleeding K92.2 A-fib I48.91 Chronic kidney disease, stage 4 (severe) N18.4 Hypertension I10 Diabetes mellitus type 2, controlled, with complications E11.8 Chronic combined systolic and diastolic CHF (congestive heart failure) I50.42 BPH (benign prostatic hyperplasia) N40.0 Lower urinary tract symptom presence: symptoms absent Cardiomyopathy I42.9 Dissection of distal aorta I71.00 (1) BPH (benign prostatic hyperplasia) Lower urinary tract symptom presence: symptoms absent Qualified Code(s): N40.0 - Benign prostatic hyperplasia without lower urinary tract symptoms
[2022-02-16] MEDS ORDERED: ONDANSETRON INJ 2 MG/ML 2 ML VIAL IV PRN (02:46)
[2022-02-16] MEDS ORDERED: GLUCOSE 10 TAB/TUBE PO PRN (02:46)
[2022-02-16] MEDS ORDERED: GLUCOSE 40% GEL 15 GM TUBE PO PRN (02:46)
[2022-02-16] MEDS ORDERED: ACETAMINOPHEN 325 MG TAB PO PRN (02:46)
[2022-02-16] MEDS ORDERED: CARBOHYDRATES FOR HYPOGLYCEMIA PO PRN (02:46)
[2022-02-16] MEDS ORDERED: DEXTROSE 50% 50 ML SYRINGE IV PRN (02:46)
[2022-02-16] MEDS ORDERED: GLUCAGON FOR INJ 1 MG VIAL SQ PRN (02:46)
[2022-02-16] MEDS: LACTATED RINGER'S 1,000 ML IV SCH (04:38)
[2022-02-16] MEDS: METOPROLOL TARTRATE 1 MG/ML VIAL IV SCH ×3 (04:39→11:24)
[2022-02-16 06:02] LABS: Basophils # (auto) 0.04 K/uL (0-0.2); Basophils % (auto) 0.3 %; Eosinophils # (auto) 0.16 K/uL (0-0.50); Eosinophils % (auto) 1.2 %; Hematocrit (blood only) 42.2 % (40.1-51.0); Hemoglobin 13.5 g/dl (14.0-18.0); Immature Granulocytes # (auto) 0.09 K/uL (0.00-0.02); Immature Granulocytes % (auto) 0.7 %; Lymphocytes # (auto) 0.65 K/uL (1.2-3.4); Lymphocytes % (auto) 5.1 %; Mean Corpuscular Hemoglobin 31.7 pg (25.0-34.0); Mean Corpuscular Volume 99.1 fL (80.0-100.0); Mean Platelet Volume 11.3 fL (9.4-12.4); Monocytes # (auto) 1.04 K/uL (0.24-0.82); Monocytes % (auto) 8.1 %; Neutrophils # (auto) 10.87 K/uL (1.4-6.5); Neutrophils % (auto) 84.6 %; Platelet Count 135 K/uL (130-400); RDW Standard Deviation 50.8 fL (36.4-46.3); Red Blood Count 4.26 M/uL (4.63-6.08); White Blood Count 12.85 K/ul (4.8-10.8)
[2022-02-16 06:13] LABS: Albumin Globulin Ratio 0.9 (0.9-2); Albumin Level 3.1 gm/dl (3.4-5.0); BUN Creatinine Ratio 19.2 (10-20); Bilirubin,Total 1.6 mg/dl (0.2-1.0); Calcium 8.6 mg/dl (8.5-10.1); Creatinine Clr Calc Pharmacy 42.5 ml/min; Est GFR (African American) 41.1 ml/min; Est GFR (Non-African American) 35.5 ml/min; Globulin 3.3 gm/dl (2.5-4.0); Potassium 4.2 mmol/L (3.5-5.1); Total Protein 6.4 gm/dl (6.0-8.3)
[2022-02-16] MEDS: PIPERACILLIN/TAZOBACTAM 4.5 GM in DEXTROSE 5% 100 ML IV SCH ×3 (06:39→22:09)
[2022-02-16 06:46] LABS: Estimated Average Glucose 131 mg/dl; Hemoglobin A1C 6.2 % (4.5-5.6)
--- NOTE | 2022-02-16 07:36 | CT Scan Report ---
ABDOMEN AND PELVIS CT WITHOUT CONTRAST CT DOSE: 1337.59 mGy.cm HISTORY: Acute lower abdominal/perirectal pain the patient with constipation and recent enema. lower abd pain, constipation, GI bleeding TECHNIQUE: Multiaxial CT images of the abdomen and pelvis were performed without contrast. A dose lo wering technique was utilized adhering to the principles of ALARA. COMPARISON STUDY: 09/20/2018, 12/27/2017. FINDINGS: Cardiomegaly with coronary arterial and thoracic aortic calcifications. Prominent epicardia l fat pad with mild bibasilar subpleural reticulation. Limited study secondary to patient body habitu s, lack of contrast and respiratory motion artifact. The left lateral abdomen is partially excluded f rom the [id number]. The unenhanced spleen is unremarkable. Moderately atrophic pancreas. Unremarkable adrenal glands. Cho lecystectomy. Marginal nodularity of the liver suggestive of cirrhosis. There is an ill-defined lesio n noted within the left hepatic lobe measuring 6.2 x 6.4 x 6.4 cm demonstrating heterogeneous attenua tion. There is possible associated left hepatic lobe intrahepatic biliary ductal dilation. Cortical thinning with atrophy and scarring of the kidneys. 2 mm calcification of the inferior pole l eft kidney. Exophytic 1.4 cm cyst within the inferior pole right kidney. No ureteral calculi or hydro nephrosis. Prostamegaly. Unremarkable urinary bladder. Extensive atherosclerosis. Chronic dissection of the abdominal aorta is better seen on the comparison studies. Fusiform dilation of the infrarenal abdominal aorta measures up to 3.9 cm, previously 3.4 cm. Fusiform dilation of the left common iliac artery measures 2.7 cm. The chronic dissection extends into the left iliac and femoral arteries. Ther e is no lymphadenopathy identified. There are several subcentimeter periesophageal lymph nodes present. Toe fragments are noted within th e gastric fundus. Mild to moderate rectal fecal retention. Extraluminal air is noted within the perir ectal and perianal tissues with mild adjacent inflammatory stranding. No perirectal fluid collection to suggest an abscess. There is otherwise mild to moderate fecal retention. Normal appendix. Nonobstr uctive bowel gas pattern. Small lipoma of the left iliopsoas. Degenerative changes of the spine, pelv is and hips. No acute fracture identified. IMPRESSION: 1. Mild to moderate fecal retention suggestive of constipation. Extraluminal air is noted within the perirectal and perianal tissues with mild adjacent inflammatory stranding. Findings are suggestive of an anterior wall perforation involving the anorectal junction. 2. No fluid collection to suggest abscess. 3. Nonobstructive bowel gas pattern. 4. Cirrhotic liver disease with 6.4 cm left hepatic lobe mass. Findings are suspicious for a primary hepatic malignancy such as hepatocellular carcinoma. Correlation with alpha-fetoprotein recommended. 5. Chronic abdominal aortic dissection with progressive fusiform aneurysmal dilation of the infrarena l abdominal aorta now measuring 3.9 cm. 6. Additional findings as above. ACT 112: Negative or not required by law. The above report was generated using voice recognition software. It may contain grammatical, syntax o r spelling errors. Electronically signed by: Tonio Jensen M.D. 02/16/2022 7:34 AM
[2022-02-16] MEDS: INSULIN ASPART PER UNIT SC SCH ×4 (08:21→19:55)
[2022-02-16 10:18] LABS: Hematocrit (blood only) 43.6 % (40.1-51.0); Hemoglobin 13.7 g/dl (14.0-18.0)
--- NOTE | 2022-02-16 10:37 | Communication Note ---
Date of Service: February 16, 2022 Patient already seen and admitted the same day therefore I will not be billing for this encounter. Hemoglobin appears stable. No abdominal pain on exam. Will place formal consults for GI per surgery recommendation and surgery (already seen patient). Discussed liver mass which he was previously unaware of - sister of liver cancer. AFP ordered with AM labs.
--- NOTE | 2022-02-16 10:53 | Gastrointestinal Consultation ---
Date of Consultation February 16, 2022 Assessment & Plan (1) Acute lower GI bleeding: (2) Perforated rectum: Plan Patient is an 81 year old male with a past medical history including atrial fibrillation, chronic venous insufficiency, CKD stage IV, chronic right-sided CHF, right lower extremity cellulitis, venous stasis ulcer, hypertension, sacroiliitis, myofascial pain, CML, moderate aortic regurgitation, peripheral neuropathy, thoracolumbar radiculopathy, TAMIKA, dissection of distal aorta, diabetic peripheral neuropathy, BPH with LUTS, BPPV, long-term anticoagulant use, vitamin D deficiency, chronic combined systolic and diastolic CHF, and diabetic nephropathy. He had a 3 day history of constipation and he had his give him an enema which then resulted in what he classifies as significant rectal bleeding thought initial hgb was 14 and he has had no further bleeding since admission. CT suggestive of perforation and Surgery is following and they suspected microperforation of rectum. He is on IV zosyn. Incidentally was found to have cirrhosis with liver mass on CT. AFP ordered and pending. - Can give bowel rest and continue with IV zosyn. - surgery is following, appreciate input. - he has had no further rectal bleeding since admission. given perforation, would not pursue any endoscopic procedures at this time. His last colonoscopy was last year and as such he is up to date. I suspect that bleeding was from trauma he sustained by using enema. Can monitor for symptoms and follow H/H. - will await the AFP. He will need further work up of the liver as an outpatient since CT findings are concerning for HCC. Patient did have sister who had liver carcinoma. Supervising Physician Co-Signing Physician Notes I personally evaluated the patient and agree with the findings as documented by Manjinder Pemberton PAC Exam: Constitutional: WD/WN, vitals as above General: EOM intact bilaterally Neck: normal visual inspection Respiratory: normal respiratory effort, lungs clear to auscultation Cardiovascular: RRR, no murmur, no edema Gastrointestinal: abdomennormal to inspection, nondistended, soft, nontender, no hepatosplenomegaly Musculoskeletal: no cyanosis, head normal to inspection Skin: no rashes, warm and dry Neurologic: moves all extremities Psychiatric: A and O x3, euthymic affect History of Present Illness Reason for Consultation: lower gi bleeding Requesting Physician: Dr. Khang Andrade Attending Physician: Khang Andrade MD History of Present Illness Patient is an 81 year old male with a past medical history including atrial fibrillation, chronic venous insufficiency, CKD stage IV, chronic right-sided CHF, right lower extremity cellulitis, venous stasis ulcer, hypertension, sacroiliitis, myofascial pain, CML, moderate aortic regurgitation, peripheral neuropathy, thoracolumbar radiculopathy, TAMIKA, dissection of distal aorta, diabetic peripheral neuropathy, BPH with LUTS, BPPV, long-term anticoagulant use, vitamin D deficiency, chronic combined systolic and diastolic CHF, and diabetic nephropathy. He had a 3 day history of constipation and he had his give him an enema which then resulted in what he classifies as significant rectal bleeding. At that time he presented to the emergency department for further evaluation. Initial hgb was 14. CT scan of abdomen and pelvis 02/15/22: 1. Mild to moderate fecal retention suggestive of constipation. Extraluminal air is noted within the perirectal and perianal tissues with mild adjacent inflammatory stranding. Findings are suggestive of an anterior wall perforation involving the anorectal junction. 2. No fluid collection to suggest abscess. 3. Nonobstructive bowel gas pattern. 4. Cirrhotic liver disease with 6.4 cm left hepatic lobe mass. Findings are suspicious for a primary hepatic malignancy such as hepatocellular carcinoma. Correlation with alpha-fetoprotein recommended. questionable intrahepatic biliary duct dilation. 5. Chronic abdominal aortic dissection with progressive fusiform aneurysmal dilation of the infrarenal abdominal aorta now measuring 3.9 cm. Surgery had seen the patient and no surgery was needed. suspected microperforation. Patient started on IV zofran. Today his hgb has remained stable at 13.7. Patient tells me that he has had no further rectal bleeding since initial episode. He has not moved his bowels since admission. he has never been told of any liver issues. He admits he drank etoh a few times a week when he was younger but nothing excessive. He tells me his sister did have history of liver cancer. AFP was ordered on this admission and is pending. patient denies any nausea, vomiting, dysphagia, heartburn, abdominal pain, bloating, melena. colonoscopy 12/11/20 5mm rectal polyp (Tubular adenoma), diverticulosis, and internal hemorrhoids. Allergies Allergy/AdvReac Type Severity Reaction Status Date / Time adhesive Allergy Mild RASH Verified 02/16/22 07:49 latex AdvReac Intermediate BLISTERS Verified 02/16/22 07:49 SKIN morphine AdvReac Intermediate DELUSIONS, Verified 02/16/22 07:49 "LOSES TIME" Home Medications Medication Instructions Recorded Confirmed Type multivitamin (Daily Multi-Vitamin) 1 tab PO DAILY 01/20/19 02/16/22 History cholecalciferol (vitamin D3) 50 2,000 unit PO DAILY ##0 03/01/19 02/16/22 History mcg (2,000 unit) capsule acetaminophen 500 mg tablet 1,000 mg PO Q6H PRN pain/fever 07/19/19 02/16/22 History (Tylenol Extra Strength) metoprolol succinate 200 mg 200 mg PO QAM #90 tabs 02/01/21 02/16/22 Rx tablet,extended release 24 hr One Touch Ava Meter Kit #1 ea 02/13/21 02/12/22 Rx pen needle, diabetic 31 gauge x #100 ea 02/13/21 02/12/22 Rx 3/16" (BD Ultra-Fine Mini Pen Needle) ipratropium 20 mcg-albuterol 100 2 puff inhalation Q6H PRN 03/05/21 02/16/22 Rx mcg/actuation mist for inhalation sob/wheezing #4 grams (Combivent Respimat) lancets 33 gauge (OneTouch Delica #100 ea 04/02/21 02/12/22 Rx Lancets) blood sugar diagnostic (OneTouch #100 ea 08/12/21 02/12/22 Rx Verio test strips) dabigatran etexilate 75 mg capsule 75 mg PO BID #180 caps 09/08/21 02/16/22 Rx insulin aspar prot-insulin aspart 15 unit subcut AMPM 10/06/21 02/16/22 History 100 unit/mL (70-30) subcutaneous pen allopurinol 300 mg tablet 300 mg PO QAM #90 tabs 10/10/21 02/16/22 Rx lorazepam 0.5 mg tablet (Ativan) 0.5 mg PO DAILY PRN Sleep #30 tabs 01/06/22 02/16/22 Rx gabapentin 100 mg capsule 100 mg PO AMPM 01/14/22 02/16/22 History torsemide 20 mg tablet 80 mg PO BID #720 tabs 01/14/22 02/16/22 Rx isosorbide mononitrate 120 mg 120 mg PO QAM #90 tabs 01/15/22 02/16/22 Rx tablet,extended release 24 hr potassium chloride 20 mEq 60 meq PO BID #540 tabs 02/04/22 02/16/22 Rx tablet,extended release acetaminophen 300 mg-codeine 30 mg See Rx Instructions PO Q6H PRN 02/11/22 02/16/22 Rx tablet pain #40 tabs levothyroxine 50 mcg tablet 50 mcg PO .COMPLEX #45 tabs 02/13/22 02/16/22 Rx levothyroxine 75 mcg tablet 75 mcg PO .COMPLEX #45 tabs 02/13/22 02/16/22 Rx metolazone 5 mg tablet 5 mg PO DAILY PRN .weight gain of 02/16/22 02/16/22 History 3 lbs Patient History Medical History (Updated 02/16/22 @ 11:08 by Manjinder Pemberton PA-C) Allergic rhinitis Arthritis BPH (benign prostatic hyperplasia) Cardiomyopathy Chronic combined systolic and diastolic CHF (congestive heart failure) Chronic kidney disease, stage 3 Chronic obstructive pulmonary disease Claustrophobia Congestive heart failure [facility] COPD (chronic obstructive pulmonary disease) Diabetic nephropathy associated with type 2 diabetes mellitus Hearing deficit 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 YEAR 10 YEARS AGO History of bronchoscopy History of cardiac cath NO STENTS History of cataract surgery rt/left History of colonoscopy History of ear surgery LEFT MASTOIDECTOMY (DEAF IN LEFT EAR) History of tonsillectomy History of tooth extraction History of total knee replacement RT S/P cholecystectomy Family History Son Colon cancer Coronary heart disease Sister Hypothyroidism Lymphoma Stroke Mother Aortic aneurysm Diabetes Father Heart disease Myocardial infarction Sister Liver problem Other Hypertension Denies family history of Ovarian cancer Prostate cancer Breast cancer Social History Smoking Status: Unknown if ever smoked Tobacco Type: Cigarettes Age Started Using Tobacco: 16; Age Quit Using Tobacco: 39; packs per day: 5; Years Smoked: 23; Number of Years Since Quit: 39; Second Hand Exposure: No; Hx Alcohol Use: No Hx Substance Use: No Preferred Language: Estonian Communication Ability: Effective Visual Impairment: No Limitations Hearing Ability: Use of Hearing Aid Van Loader Required: No Beliefs That Will Affect Care: None marital status: Current Living Situation: Spouse current occupational status: retired current occupation: retired from career [employer] for [employer] Other Information That Helps Us Care for You: No Feels Safe at Home: Yes Safety Concerns: Feels Safe At This Time Childhood Exposure to Second-Hand Smoke: No caffeine: No during the past year weight has: remained stable Dental Care, Regularly: Yes Physical Activity Frequency: Does not Exercise Seatbelt Use: always Sunscreen Use: No Assistive Devices: Cane and Hearing Aid - Right Review of Systems Review of Systems: The patient denies chest pain, palpitations, shortness of breath, dyspnea on exertion, cough, sore throat, fevers, chills, sweats, fatigue, nausea, vomiting, blood in urine, dysuria, urinary frequency or urgency, lightheadedness, dizziness, headache, memory loss, loss of consciousness, rash, imbalance, focal or generalized weakness, numbness or tingling in arms or legs, generalized arthralgias or myalgias, neck pain, or night sweats. Physical Exam Constitutional: WD/WN, vitals as above Eyes: + anicteric sclerae and PERRL ENMT: external ear and nose normal, oropharynx normal Respiratory: normal respiratory effort, lungs clear to auscultation Cardiovascular: RRR, no murmur, no edema Gastrointestinal (Abdomen): normoactivce bowel sounds, soft, mild diffuse tenderness, no guarding. Skin: no rashes, warm and dry Psychiatric: A+Ox3, euthymic affect Results & Data ([facility]) Vital Signs (Past 12 Hours) Vital Signs Pulse Pulse Resp BP BP Pulse Ox O2 Del Method 02/16/22 10:25 74 20 169/85 H 95 02/16/22 07:43 85 161/89 H 02/16/22 07:03 80 20 161/89 H 95 Room Air 02/16/22 06:00 78 24 168/116 H 95 Room Air 02/16/22 05:35 74 24 185/84 H 95 Room Air 02/16/22 05:00 81 26 H 171/102 H 96 Room Air 02/16/22 04:45 74 24 177/105 H 96 Room Air 02/16/22 04:39 85 186/80 H 02/16/22 04:00 81 23 186/80 H 96 Room Air 02/16/22 03:00 79 30 H 169/83 H 95 Room Air 02/16/22 02:00 72 26 H 179/86 H 93 Room Air 02/16/22 01:55 72 26 H 172/71 H 93 Room Air 02/16/22 00:36 77 27 H 192/83 H 98 Room Air 02/15/22 23:11 74 24 181/74 H 93 Room Air PG Care Time/CCT Total # of Minutes Spent Total Time Spent with Patient: Total time spent is greater than 50% in coordination of care (as documented) at patient's floor/unit and/or counseling patient: Coding Level of Care Code 15314 Initial Inpt Care Lvl 3 Diagnoses Acute lower GI bleeding K92.2 Perforated rectum K63.1
--- NOTE | 2022-02-16 14:32 | Electrocardiogram Report ---
Test Reason : Blood Pressure : / mmHG Vent. Rate : 068 BPM Atrial Rate : 060 BPM P-R Int : 000 ms QRS Dur : 100 ms QT Int : 406 ms P-R-T Axes : 000 -71 081 degrees QTc Int : 431 ms Atrial fibrillation Left axis deviation Incomplete right bundle branch block Possible Anterior infarct (cited on or before 24-MAR-2018) Abnormal ECG When compared with ECG of 23-SEP-2021 04:00, No significant change was found Confirmed by Odin Mcgowan ([id number]) on 02/16/2022 2:32:17 PM Referred By: REFERRED SELF Confirmed By:Odin Mcgowan
[2022-02-16] MEDS: ISOSORBIDE MONO EXTENDED REL 60 MG TABCR PO SCH (14:33)
[2022-02-16] MEDS: METOPROLOL SUCC 50MG EXT REL TAB PO SCH (14:33)
[2022-02-16 17:16] LABS: Hematocrit (blood only) 44.5 % (40.1-51.0)
[2022-02-17] MEDS: MELATONIN 3 MG TAB PO PRN ×2 (00:15→21:57)
[2022-02-17] MEDS: INSULIN ASPART PER UNIT SC SCH ×6 (00:15→20:20)
[2022-02-17] MEDS: LACTATED RINGER'S 1,000 ML IV SCH ×2 (00:48→12:21)
[2022-02-17] MEDS: PIPERACILLIN/TAZOBACTAM 4.5 GM in DEXTROSE 5% 100 ML IV SCH ×3 (05:00→22:11)
[2022-02-17] MEDS: METOPROLOL SUCC 50MG EXT REL TAB PO SCH (08:31)
[2022-02-17] MEDS: ISOSORBIDE MONO EXTENDED REL 60 MG TABCR PO SCH (08:31)
[2022-02-17] MEDS: allopurinoL 300 MG TAB PO SCH (09:13)
[2022-02-17] MEDS: LEVOTHYROXINE SODIUM 75 MCG TABLET PO SCH (09:13)
[2022-02-17] MEDS: GABAPENTIN 100 MG CAP PO SCH ×2 (09:13→20:02)
[2022-02-17 09:44] LABS: Basophils # (auto) 0.03 K/uL (0-0.2); Basophils % (auto) 0.4 %; Eosinophils # (auto) 0.21 K/uL (0-0.50); Eosinophils % (auto) 2.6 %; Hematocrit (blood only) 41.5 % (40.1-51.0); Hemoglobin 13.1 g/dl (14.0-18.0); Immature Granulocytes # (auto) 0.08 K/uL (0.00-0.02); Lymphocytes # (auto) 0.66 K/uL (1.2-3.4); Lymphocytes % (auto) 8.2 %; Mean Corpuscular Hemoglobin 31.8 pg (25.0-34.0); Mean Corpuscular Hgb Conc 31.6 g/dL (32.0-36.0); Mean Corpuscular Volume 100.7 fL (80.0-100.0); Mean Platelet Volume 10.8 fL (9.4-12.4); Monocytes # (auto) 0.69 K/uL (0.24-0.82); Monocytes % (auto) 8.6 %; Neutrophils # (auto) 6.39 K/uL (1.4-6.5); Neutrophils % (auto) 79.2 %; Platelet Count 141 K/uL (130-400); RDW Coefficient of Variation 14.1 % (11.5-14.5); RDW Standard Deviation 51.7 fL (36.4-46.3); Red Blood Count 4.12 M/uL (4.63-6.08); White Blood Count 8.06 K/ul (4.8-10.8)
[2022-02-17 10:07] LABS: BUN Creatinine Ratio 15.7 (10-20); Calcium 8.9 mg/dl (8.5-10.1); Creatinine Clr Calc Pharmacy 36.4 ml/min; Est GFR (African American) 34.6 ml/min; Est GFR (Non-African American) 29.9 ml/min; Potassium 4.2 mmol/L (3.5-5.1)
[2022-02-17 10:08] LABS: Albumin Globulin Ratio 0.9 (0.9-2); BUN Creatinine Ratio 15.9 (10-20); Bilirubin,Total 2.5 mg/dl (0.2-1.0); Calcium 8.8 mg/dl (8.5-10.1); Est GFR (African American) 35.3 ml/min; Est GFR (Non-African American) 30.4 ml/min; Globulin 3.2 gm/dl (2.5-4.0); Potassium 4.2 mmol/L (3.5-5.1); Total Protein 6.2 gm/dl (6.0-8.3)
--- NOTE | 2022-02-17 10:28 | Surgery Progress Note ---
Date of Service February 17, 2022 Assessment & Plan (1) Acute lower GI bleeding: Plan: PAD#2 the patient appears to be responding with antibiotic therapy in fact has stated he has moved his bowels his white count today is within normal limits no left shift At this time we will start him on full liquid diet continue with antibiotic therapy and once discharged we will continue on p.o. antibiotics for a another 10 days and de pending his clinical course may extend that timeframe The patient overall appears to be responding well to nonoperative management of this potential devastating injury of the rectum I discussed with the treating emergency room physician we feel it is best to have the patient admitted on the hospital service due to his multiple medical problems and presenting symptomatology/imaging. From a surgical perspective we recommend the following: It does not appear that the patient has an underlying infectious problem such as foreign years gangrene, however the patient may have a microperforation of his rectum. This may be the result of the enema patient utilized at home or also related to severe constipation. As the patient does not have a surgical abdomen, leukocytosis, and is hemodynamically stable and an emergent surgical procedure is not indicated at this time Would recommend keeping the patient n.p.o. for the present time Recommend gentle hydration with IV fluids Recommend continuing broad-spectrum antibiotics. The patient has received Zosyn in the emergency department Recommend requesting a GI consultation for consideration of lower endoscopy Would recommend holding the patient's Pradaxa for the present time Additional plan as directed by the primary service I discussed the above plan with my attending surgeon Dr. Irizarry Admission and Anticipated Discharge Date Admission Date: February 16, 2022 Subjective No complaints has moved his bowels formed without any discomfort overall feels much better when he first came in Physical Exam Physical Exam: Patient left lateral position the perianal area was inspected at this time it is moderate amount of fecal material present on the skin there is no tenderness or obvious cellulitis around the perianal area I did not do a digital exam at this time Results & Data ([facility]) Vital Signs (Past 12 Hours) Vital Signs Temp Pulse Resp BP BP Pulse Ox O2 Del Method 02/17/22 06:44 36.4 C L 70 18 191/84 H 94 Room Air 02/17/22 03:05 36.9 C 78 18 125/69 92 Room Air 02/16/22 23:24 36.7 C 81 18 143/74 H 93 Room Air PG Care Time/CCT Total # of Minutes Spent Total Time Spent with Patient: Total time spent is greater than 50% in coordination of care (as documented) at patient's floor/unit and/or counseling patient: Coding Level of Care Code 99516 Subseq Hosp Care Lvl 3 Diagnoses Acute lower GI bleeding K92.2
--- NOTE | 2022-02-17 14:05 | Electrocardiogram Report ---
Test Reason : Blood Pressure : / mmHG Vent. Rate : 073 BPM Atrial Rate : 468 BPM P-R Int : 000 ms QRS Dur : 098 ms QT Int : 414 ms P-R-T Axes : 000 -85 029 degrees QTc Int : 456 ms Atrial fibrillation Left anterior fascicular block Incomplete right bundle branch block Possible Old Anterior infarct (cited on or before 24-MAR-2018) Abnormal ECG When compared with ECG of 15-FEB-2022 22:30, No significant change Confirmed by Louis Wolf ([id number]) on 02/17/2022 2:05:09 PM Referred By: REFERRED SELF Confirmed By:Louis Wolf
[2022-02-17] MEDS ORDERED: Nursing to Pharmacy Communication SCH ×2 (14:15→15:15)
[2022-02-17] MEDS ORDERED: LORazepam 0.5 MG TAB PO PRN (17:35)
--- NOTE | 2022-02-17 17:36 | Hospitalist Progress Note ---
Date of Service February 17, 2022 Assessment & Plan (1) Acute lower GI bleeding: Plan: Acute lower GI bleeding- Likely secondary to mechanical trauma of given an enema. CT suggestion of a possible microperforation Hemoglobin appears relatively stable. We will continue daily checks. Hold Pradaxa, but not reversing Advance to full liquid diets by surgery today. (2) Bowel perforation: Plan: Appreciate surgical conservative management as above. (3) Liver mass: Plan: Patient aware of diagnosis. AFP pending. Follow-up with gastroenterology as an outpatient. (4) A-fib: Plan: This to be rate controlled on metoprolol succinate Anticoagulation on hold pending definitive no surgical intervention (5) Chronic kidney disease, stage 4 (severe): Plan: At baseline. (6) Hypertension: Plan: Continue isosorbide mononitrate 120 mg p.o. every morning and metoprolol succinate 200 mg p.o. every morning (7) Diabetes mellitus type 2, controlled, with complications: Plan: Holding 70-30 Placed on Accu-Cheks ACHS with NovoLog coverage per scale (8) Chronic combined systolic and diastolic CHF (congestive heart failure): Plan: Does not appear to be acutely exacerbated by IV fluids. However. IV fluids now he is eating and drinking. Restart torsemide at home dose tomorrow. 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 Nonacute. Plan VTE prophylaxis -deferred will restart on Pradaxa when okay by surgery Diet - Full liquid Disposition -continued admission to [facility] telemetry Admission and Anticipated Discharge Date Admission Date: February 16, 2022 Subjective Patient had 2 bowel movements yesterday initially hard and then soft. No melena or bright red blood in stool. No nausea or vomiting. Advance to full liquid diet by surgery today and appears to be tolerating this fine. No fever or chills. No significant shortness of breath or chest pain after torsemide held for 2 days and on IV fluids. Review of Systems Review of Systems: All systems reviewed & are unremarkable except as noted in Subjective Physical Exam Constitutional: WD/WN, vitals as above Respiratory: normal respiratory effort, lungs clear to auscultation Cardiovascular: Rate/Rhythm: regular rate and + irregularly irregular Extremities: + pedal edema (leg wrapped 1+ above wrapping) Gastrointestinal (Abdomen): normal bowel sounds, soft, nontender, no hepatosplenomegaly Skin: no rashes, warm and dry Psychiatric: A+Ox3, euthymic affect Results & Data Results & Data ([facility]) Vital Signs (Past 12 Hours) Vital Signs Temp Pulse Resp BP Pulse Ox O2 Del Method 02/17/22 14:56 36.6 C 67 16 145/64 H 94 Room Air 02/17/22 11:25 36.3 C L 71 16 133/66 94 Room Air 02/17/22 08:00 Room Air 02/17/22 06:44 36.4 C L 70 18 191/84 H 94 Room Air PG Care Time/CCT Total # of Minutes Spent Total Time Spent with Patient: Total time spent is greater than 50% in coordination of care (as documented) at patient's floor/unit and/or counseling patient: Coding Level of Care Code 13244 Subseq Hosp Care Lvl 2 Diagnoses Acute lower GI bleeding K92.2 Bowel perforation K63.1 Liver mass R16.0 A-fib I48.91 Chronic kidney disease, stage 4 (severe) N18.4 Hypertension I10 Diabetes mellitus type 2, controlled, with complications E11.8 Chronic combined systolic and diastolic CHF (congestive heart failure) I50.42 BPH (benign prostatic hyperplasia) N40.0 Lower urinary tract symptom presence: symptoms absent Cardiomyopathy I42.9 Dissection of distal aorta I71.00 (1) BPH (benign prostatic hyperplasia) Lower urinary tract symptom presence: symptoms absent Qualified Code(s): N40.0 - Benign prostatic hyperplasia without lower urinary tract symptoms
[2022-02-17] MEDS: TORSEMIDE 20 MG TAB PO SCH (21:55)
[2022-02-18] MEDS ORDERED: LACTATED RINGER'S 1,000 ML IV SCH
[2022-02-18] MEDS: PIPERACILLIN/TAZOBACTAM 4.5 GM in DEXTROSE 5% 100 ML IV SCH ×3 (06:01→22:50)
[2022-02-18] MEDS ORDERED: LEVOTHYROXINE SODIUM 50 MCG TABLET PO SCH (06:30)
--- NOTE | 2022-02-18 06:36 | Surgery Progress Note ---
Date of Service February 18, 2022 Assessment & Plan (1) Acute lower GI bleeding: Plan: PAD#3 the patient continues to do well responding to antibiotic therapy for rectal perforation At this point will increase him to diabetic diet From my point of view the patient most likely can be discharged tomorrow we will keep him on Cipro and Flagyl for another 10 days and we will follow him in the office next week Alpha-fetoprotein results are pending patient will need further work-up of large liver mass likely malignant PAD#2 the patient appears to be responding with antibiotic therapy in fact has stated he has moved his bowels his white count today is within normal limits no left shift At this time we will start him on full liquid diet continue with antibiotic therapy and once discharged we will continue on p.o. antibiotics for a another 10 days and de pending his clinical course may extend that timeframe The patient overall appears to be responding well to nonoperative management of this potential devastating injury of the rectum I discussed with the treating emergency room physician we feel it is best to have the patient admitted on the hospital service due to his multiple medical problems and presenting symptomatology/imaging. From a surgical perspective we recommend the following: It does not appear that the patient has an underlying infectious problem such as foreign years gangrene, however the patient may have a microperforation of his rectum. This may be the result of the enema patient utilized at home or also related to severe constipation. As the patient does not have a surgical abdomen, leukocytosis, and is hemodynamically stable and an emergent surgical procedure is not indicated at this time Would recommend keeping the patient n.p.o. for the present time Recommend gentle hydration with IV fluids Recommend continuing broad-spectrum antibiotics. The patient has received Zosyn in the emergency department Recommend requesting a GI consultation for consideration of lower endoscopy Would recommend holding the patient's Pradaxa for the present time Additional plan as directed by the primary service I discussed the above plan with my attending surgeon Dr. Irizarry Admission and Anticipated Discharge Date Admission Date: February 16, 2022 Subjective Patient has significant bowel movement yesterday without any discomfort only issue is that he did make to the bathroom in time Denies any pain in the abdomen or perianal area Tolerating liquid diet without any issue Physical Exam Physical Exam: Alert coherent resting comfortably without any issues Abdominal exam completely benign Did not check the perianal area Results & Data ([facility]) Vital Signs (Past 12 Hours) Vital Signs Temp Pulse Pulse Resp BP Pulse Ox O2 Del Method 02/18/22 04:25 36.6 C 60 19 145/76 H 95 Room Air 02/17/22 22:38 69 02/17/22 22:40 36.7 C 64 17 175/98 H 94 02/17/22 19:37 36.7 C 62 17 155/73 H 91 Room Air PG Care Time/CCT Total # of Minutes Spent Total Time Spent with Patient: Total time spent is greater than 50% in coordination of care (as documented) at patient's floor/unit and/or counseling patient: Coding Level of Care Code 09228 Subseq Hosp Care Lvl 2 Diagnoses Acute lower GI bleeding K92.2
[2022-02-18] MEDS: allopurinoL 300 MG TAB PO SCH (07:35)
[2022-02-18] MEDS: CHOLECALCIFEROL 1,000 UNITS 25 MCG TAB PO SCH (07:35)
[2022-02-18] MEDS: GABAPENTIN 100 MG CAP PO SCH ×2 (07:35→20:30)
[2022-02-18] MEDS: TORSEMIDE 20 MG TAB PO SCH ×2 (07:36→20:29)
[2022-02-18] MEDS: METOPROLOL SUCC 50MG EXT REL TAB PO SCH (07:36)
[2022-02-18] MEDS: ISOSORBIDE MONO EXTENDED REL 60 MG TABCR PO SCH (07:36)
[2022-02-18] MEDS: INSULIN ASPART PER UNIT SC SCH ×4 (07:57→20:30)
[2022-02-18 08:10] LABS: Hematocrit (blood only) 39.7 % (40.1-51.0); Hemoglobin 12.6 g/dl (14.0-18.0); Mean Corpuscular Hemoglobin 31.7 pg (25.0-34.0); Mean Corpuscular Hgb Conc 31.7 g/dL (32.0-36.0); Mean Corpuscular Volume 99.7 fL (80.0-100.0); Mean Platelet Volume 11.6 fL (9.4-12.4); Platelet Count 121 K/uL (130-400); RDW Standard Deviation 51.1 fL (36.4-46.3); Red Blood Count 3.98 M/uL (4.63-6.08); White Blood Count 6.99 K/ul (4.8-10.8)
[2022-02-18 08:33] LABS: Alanine Aminotransferase 21 U/L (7-52); Albumin Globulin Ratio 0.9 (0.9-2); Albumin Level 2.9 gm/dl (3.4-5.0); Alkaline Phosphatase 103 U/L (34-104); Anion Gap 7 (3-11); BUN Creatinine Ratio 13.6 (10-20); Bilirubin,Total 1.4 mg/dl (0.2-1.0); Blood Urea Nitrogen 25 mg/dl (6-23); Calcium 8.3 mg/dl (8.5-10.1); Carbon Dioxide 30 mmol/L (21-32); Chloride 105 mmol/L (98-107); Creatinine Clr Calc Pharmacy 40.8 ml/min; Est GFR (African American) 39.2 ml/min; Est GFR (Non-African American) 33.9 ml/min; Globulin 3.4 gm/dl (2.5-4.0); Glucose 129 mg/dl (70-99(Fasting)); Sodium 142 mmol/L (136-145); Total Protein 6.3 gm/dl (6.0-8.3)
[2022-02-18 08:37] LABS: Basophils # (auto) 0.02 K/uL (0-0.2); Basophils % (auto) 0.3 %; Eosinophils # (auto) 0.35 K/uL (0-0.50); Immature Granulocytes # (auto) 0.06 K/uL (0.00-0.02); Immature Granulocytes % (auto) 0.9 %; Lymphocytes # (auto) 0.88 K/uL (1.2-3.4); Lymphocytes % (auto) 12.6 %; Monocytes # (auto) 0.67 K/uL (0.24-0.82); Monocytes % (auto) 9.6 %; Neutrophils # (auto) 5.01 K/uL (1.4-6.5); Neutrophils % (auto) 71.6 %
[2022-02-18 10:02] LABS: Potassium 3.2 mmol/L (3.5-5.1)
[2022-02-18] MEDS: POTASSIUM CHLORIDE CRTAB 20 MEQ TABCR PO SCH ×2 (13:47→20:30)
--- NOTE | 2022-02-18 13:54 | Hospitalist Progress Note ---
Date of Service February 18, 2022 Assessment & Plan (1) Acute lower GI bleeding: Plan: Acute lower GI bleeding- Likely secondary to mechanical trauma of given an enema. CT suggestion of a possible microperforation Hemoglobin appears relatively stable. We will continue daily checks. Hold Pradaxa, but not reversing Advance to full diet today. (2) Bowel perforation: Plan: Continue IV Zosyn Appreciate surgical conservative management as above. (3) Liver mass: Plan: Patient aware of diagnosis. AFP pending. Follow-up with gastroenterology as an outpatient. (4) A-fib: Plan: This to be rate controlled on metoprolol succinate Anticoagulation on hold pending definitive no surgical intervention (5) Chronic kidney disease, stage 4 (severe): Plan: At baseline. (6) Hypertension: Plan: Continue isosorbide mononitrate 120 mg p.o. every morning and metoprolol succinate 200 mg p.o. every morning (7) Diabetes mellitus type 2, controlled, with complications: Plan: Holding 70-30 Placed on Accu-Cheks ACHS with NovoLog coverage per scale (8) Chronic combined systolic and diastolic CHF (congestive heart failure): Plan: Does not appear to be acutely exacerbated by IV fluids. However. IV fluids now he is eating and drinking. Restart torsemide at home dose today. 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 Nonacute. Plan VTE prophylaxis -deferred will restart on Pradaxa when okay by surgery Diet - T2DM Disposition -continued admission to [facility] telemetry Admission and Anticipated Discharge Date Admission Date: February 16, 2022 Subjective Tolerating full diet today. No abdominal pain. Having bowel movements. No fever or chills. Review of Systems Review of Systems: All systems reviewed & are unremarkable except as noted in Subjective Physical Exam Constitutional: WD/WN, vitals as above Respiratory: normal respiratory effort, lungs clear to auscultation Cardiovascular: Rate/Rhythm: regular rate and + irregularly irregular Extremities: + pedal edema (leg wrapped 1+ above wrapping) Gastrointestinal (Abdomen): normal bowel sounds, soft, nontender, no hepatosplenomegaly Skin: no rashes, warm and dry Psychiatric: A+Ox3, euthymic affect Results & Data Results & Data ([facility]) Vital Signs (Past 12 Hours) Vital Signs Temp Pulse Pulse Resp BP Pulse Ox O2 Del Method 02/18/22 13:00 36.6 C 70 19 171/83 H 94 Room Air 02/18/22 10:59 Room Air 02/18/22 08:03 66 02/18/22 07:55 36.5 C 68 18 168/77 H 92 Room Air 02/18/22 04:25 36.6 C 60 19 145/76 H 95 Room Air PG Care Time/CCT Total # of Minutes Spent Total Time Spent with Patient: Total time spent is greater than 50% in coordination of care (as documented) at patient's floor/unit and/or counseling patient: Coding Level of Care Code 93624 Subseq Hosp Care Lvl 2 Diagnoses Acute lower GI bleeding K92.2 Bowel perforation K63.1 Liver mass R16.0 A-fib I48.91 Chronic kidney disease, stage 4 (severe) N18.4 Hypertension I10 Diabetes mellitus type 2, controlled, with complications E11.8 Chronic combined systolic and diastolic CHF (congestive heart failure) I50.42 BPH (benign prostatic hyperplasia) N40.0 Lower urinary tract symptom presence: symptoms absent Cardiomyopathy I42.9 Dissection of distal aorta I71.00 (1) BPH (benign prostatic hyperplasia) Lower urinary tract symptom presence: symptoms absent Qualified Code(s): N40.0 - Benign prostatic hyperplasia without lower urinary tract symptoms
[2022-02-18] MEDS: MELATONIN 3 MG TAB PO PRN (20:35)
[2022-02-19 04:40] VITALS: O2SAT 94
[2022-02-19] MEDS: LEVOTHYROXINE SODIUM 75 MCG TABLET PO SCH (05:07)
[2022-02-19] MEDS: PIPERACILLIN/TAZOBACTAM 4.5 GM in DEXTROSE 5% 100 ML IV SCH (05:07)
--- NOTE | 2022-02-19 06:42 | Surgery Progress Note ---
Date of Service February 19, 2022 Assessment & Plan (1) Acute lower GI bleeding: Plan: PAD#4 overall he continues to do well does not show any sign of collateral damage from the rectal injury At this point the patient can be discharged on Cipro and Flagyl for another 10 days He should stay on a low fiber diet We can see him in the office in about a week I will leave it up to the medical team to manage the possible COVID exposure at his home by his PAD#3 the patient continues to do well responding to antibiotic therapy for rectal perforation At this point will increase him to diabetic diet From my point of view the patient most likely can be discharged tomorrow we will keep him on Cipro and Flagyl for another 10 days and we will follow him in the office next week Alpha-fetoprotein results are pending patient will need further work-up of large liver mass likely malignant PAD#2 the patient appears to be responding with antibiotic therapy in fact has stated he has moved his bowels his white count today is within normal limits no left shift At this time we will start him on full liquid diet continue with antibiotic therapy and once discharged we will continue on p.o. antibiotics for a another 10 days and de pending his clinical course may extend that timeframe The patient overall appears to be responding well to nonoperative management of this potential devastating injury of the rectum I discussed with the treating emergency room physician we feel it is best to have the patient admitted on the hospital service due to his multiple medical problems and presenting symptomatology/imaging. From a surgical perspective we recommend the following: It does not appear that the patient has an underlying infectious problem such as foreign years gangrene, however the patient may have a microperforation of his rectum. This may be the result of the enema patient utilized at home or also related to severe constipation. As the patient does not have a surgical abdomen, leukocytosis, and is hemodynamically stable and an emergent surgical procedure is not indicated at this time Would recommend keeping the patient n.p.o. for the present time Recommend gentle hydration with IV fluids Recommend continuing broad-spectrum antibiotics. The patient has received Zosyn in the emergency department Recommend requesting a GI consultation for consideration of lower endoscopy Would recommend holding the patient's Pradaxa for the present time Additional plan as directed by the primary service I discussed the above plan with my attending surgeon Dr. Irizarry Admission and Anticipated Discharge Date Admission Date: February 16, 2022 Subjective Overall he had a good day yesterday his stools are more liquid at times he can control it but then is that it begins to solidify No abdominal discomfort no rectal discomfort He told me this morning that his who lives with the patient may have COVID she is going to be tested Physical Exam Physical Exam: Comfortable laying in bed The perianal area do not see any stool soilage this morning there is no cellulitis no tenderness I did not do a digital exam Results & Data ([facility]) Vital Signs (Past 12 Hours) Vital Signs Temp Pulse Pulse Resp BP Pulse Ox O2 Del Method 02/19/22 04:20 36.5 C 67 18 154/68 H 94 Room Air 02/18/22 23:02 36.8 C 72 20 151/73 H 93 Room Air 02/18/22 23:13 74 02/18/22 20:53 Room Air PG Care Time/CCT Total # of Minutes Spent Total Time Spent with Patient: Total time spent is greater than 50% in coordination of care (as documented) at patient's floor/unit and/or counseling patient: Coding Level of Care Code 19712 Subseq Hosp Care Lvl 3 Diagnoses Acute lower GI bleeding K92.2
[2022-02-19 07:48] VITALS: TEMP 97.9
[2022-02-19] MEDS: INSULIN ASPART PER UNIT SC SCH ×2 (08:11→11:24)
[2022-02-19] MEDS: TORSEMIDE 20 MG TAB PO SCH (08:29)
[2022-02-19] MEDS: CHOLECALCIFEROL 1,000 UNITS 25 MCG TAB PO SCH (08:29)
[2022-02-19] MEDS: POTASSIUM CHLORIDE CRTAB 20 MEQ TABCR PO SCH (08:29)
[2022-02-19] MEDS: METOPROLOL SUCC 50MG EXT REL TAB PO SCH (08:29)
[2022-02-19] MEDS: ISOSORBIDE MONO EXTENDED REL 60 MG TABCR PO SCH (08:29)
[2022-02-19] MEDS: allopurinoL 300 MG TAB PO SCH (08:29)
[2022-02-19] MEDS: GABAPENTIN 100 MG CAP PO SCH (08:29)
[2022-02-19 11:12] VITALS: PULSE 67
--- NOTE | 2022-02-19 11:42 | Discharge Summary ---
Date of Service February 19, 2022 Admission HPI Per Admitting Provider The patient is an 81-year-old male with a past medical history including atrial fibrillation, chronic venous insufficiency, CKD stage IV, chronic right-sided CHF, right lower extremity cellulitis, venous stasis ulcer, hypertension, sacroiliitis, myofascial pain, CML, moderate aortic regurgitation, peripheral neuropathy, thoracolumbar radiculopathy, TAMIKA, dissection of distal aorta, diabetic peripheral neuropathy, BPH with LUTS, BPPV, long-term anticoagulant use, vitamin D deficiency, chronic combined systolic and diastolic CHF, and diabetic nephropathy. He presents to the emergency department with rectal bleeding as noted above. Principal Diagnosis acute Lower GI bleed Discharge Exam Constitutional: WD/WN, vitals as above Respiratory: normal respiratory effort, lungs clear to auscultation Cardiovascular: Rate/Rhythm: regular rate and + irregularly irregular Extremities: + pedal edema (leg wrapped 1+ above wrapping) Gastrointestinal (Abdomen): normal bowel sounds, soft, nontender, no hepatosplenomegaly Skin: no rashes, warm and dry Psychiatric: A+Ox3, euthymic affect Discharge Data Allergies Allergy/AdvReac Type Severity Reaction Status Date / Time adhesive Allergy Mild RASH Verified 02/16/22 07:49 latex AdvReac Intermediate BLISTERS Verified 02/16/22 07:49 SKIN morphine AdvReac Intermediate DELUSIONS, Verified 02/16/22 07:49 "LOSES TIME" Consultations 02/16/22 01:12 ED Decision to Admit Stat 02/16/22 10:22 Consult General Surgery Routine 02/16/22 10:24 Consult Gastroenterology Routine Ordered Studies 02/15/22 22:15 CT abd pelvis wo con Urgent Hospital Course (1) Acute lower GI bleeding: Acute lower GI bleeding- Likely secondary to mechanical trauma of given an enema. CT suggestion of a possible microperforation Hemoglobin appears relatively stable. Hold Pradaxa for 7-14 days post injury. Will need to resume. Patient will be seeing Dr. Irizarry in about a week. Until then, will continue a low fiber diet. (2) Bowel perforation: Patient was treated with IV Zosyn Will transition to cipro 250 mg PO BID (DUE TO CREATININE CLEARANCE/ GFR) and Flagyl 500 mg PO TID will complete 10 additional days post discharge. Appreciate surgical conservative management as above. (3) Liver mass: Patient aware of diagnosis. AFP 2.6 Follow-up with gastroenterology as an outpatient. (4) A-fib: This to be rate controlled on metoprolol succinate Anticoagulation on hold Pending outpatient followup. (5) Chronic kidney disease, stage 4 (severe): At baseline. (6) Hypertension: Continue isosorbide mononitrate 120 mg p.o. every morning and metoprolol succinate 200 mg p.o. every morning (7) Diabetes mellitus type 2, controlled, with complications: resume home meds. (8) Chronic combined systolic and diastolic CHF (congestive heart failure): Does not appear to be acutely exacerbated by IV fluids. However. IV fluids now he is eating and drinking. Restart torsemide at home dose today. 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 Nonacute. Plan Things to followup for PCP: Resume his anticoagulation after his Gen surgery followup. Usually 7-14 days should be enough time after a GI injury. Gastrointestinal followup for his liver mass, and monitor LFTs Make sure patient continues to followup with wound care Patient's had exposure this past Wednesday (02/17) to COVID. Currently negative. Recommended quarantine and wearing mask at home until 's home test on Wednesday02/22/22 Total Time Total Time Spent Total Time Spent (In Minutes): 35 Discharge Plan Discharge Items Patient Disposition: Home - Self-Care Reason For Visit: LWR GI BLEED, CELLULITIS Discharge Diagnosis: Lower GI bleed, cellulitis Activity: Resume your previous activity Non-emergency contact: Primary Care Provider Call non-emergency contact if: you have any medication questions Follow-up/Referrals: Candida Andrea CRNP [Primary Care Provider] - 03/02/22 2:00 pm Devon Irizarry MD, FACS [Surgeon] - 02/26/22 9:00 am () Diet: Low Fiber Addtl Attending Provider Instructions: You were hospitalized for Gastrointestinal bleed from a tear. Currently I recommend to hold your Pradaxa between 7-14 days.. Holding Pradaxa in the short term carries some risk of a clot however, the risk is small vs bleeding risk. Do not recommend holding the Pradaxa longer than the 2 week interval if bleeding has resolved. However will defer to surgeon as he will examine you in 1 week. Recommend followup with General Surgery Dr. Irizarry (1 week). Recommend followup in 1-2 weeks with PCP. You will continue Antibiotics for 10 more days. Start antibiotics today with dinner. You will also followup with Gastroenterology in regards to your liver mass. Please continue followup with wound care center. Pending Studies at Discharge: No Stand-Alone Forms: My [facility], Smoking Cessation Medications and DC Order Prescriptions: New ciprofloxacin HCl [Cipro] 250 mg tablet 250 mg PO BID Qty: 20 0RF metronidazole 500 mg tablet 500 mg PO Q8H 10 Days Qty: 30 0RF Continued cholecalciferol (vitamin D3) 2,000 unit capsule 2,000 unit PO DAILY Qty: 0 Label Comments: TAKE WITH THE MAIN MEAL OF THE DAY. Rx Instructions: TAKE WITH MAIN MEAL OF THE DAY metoprolol succinate 200 mg tablet extended release 24 hr 200 mg PO QAM Qty: 90 1RF (DME) pen needle, diabetic [BD Ultra-Fine Mini Pen Needle] 31 gauge x 3/16" needle See Dose Instructions .ROUTE .MEDSUPPLY Qty: 100 3RF Rx Instructions: Use with insulin BID (DME) One Touch Ava Meter Kit See Rx Instructions .Route .MEDSUPPLY Qty: 1 0RF Rx Instructions: Glucometer .test BID; (DME) lancets [OneTouch Delica Lancets] 33 gauge misc See Dose Instructions .ROUTE .MEDSUPPLY Qty: 100 3RF Rx Instructions: As directed (DME) OneTouch Verio test strips Strip See Dose Instructions .ROUTE .MEDSUPPLY Qty: 100 5RF Rx Instructions: test BID allopurinol 300 mg tablet 300 mg PO QAM Qty: 90 3RF torsemide 20 mg tablet 80 mg PO BID Qty: 720 1RF potassium chloride 20 mEq tablet extended release 60 meq PO BID Qty: 540 3RF acetaminophen-codeine 300-30 mg tablet See Rx Instructions PO Q6H PRN (Reason: pain) Qty: 40 0RF Rx Instructions: 1-2 tablets orally every 6 hours PRN; levothyroxine 75 mcg tablet 75 mcg PO .COMPLEX Qty: 45 3RF Rx Instructions: 75 mcg PO every other day, rotating with 50mcg tabs; levothyroxine 50 mcg tablet 50 mcg PO .COMPLEX Qty: 45 3RF Rx Instructions: 50 mcg PO every other day, rotating with 75mcg tabs; isosorbide mononitrate 120 mg tablet extended release 24 hr 120 mg PO QAM Qty: 90 3RF lorazepam [Ativan] 0.5 mg tablet 0.5 mg PO DAILY PRN (Reason: Sleep) Qty: 30 0RF insulin asp prt-insulin aspart 100 unit/mL (70-30) insulin pen 15 unit subcut AMPM multivitamin [Daily Multi-Vitamin] tablet 1 tab PO DAILY Combivent Respimat 20-100 mcg/actuation mist 2 puff INHALATION Q6H PRN (Reason: sob/wheezing) Qty: 4 5RF gabapentin 100 mg capsule 100 mg PO AMPM acetaminophen [Tylenol Extra Strength] 500 mg Tablet 1,000 mg PO Q6H PRN (Reason: pain/fever) metolazone 5 mg tablet 5 mg PO DAILY PRN (Reason: .weight gain of 3 lbs) Discontinued dabigatran etexilate 75 mg capsule 75 mg PO BID Qty: 180 3RF Discharge Orders: Discharge Order (Routine); Ordered 02/19/22 Ordered By: iDlan Guevara Admission Data Admit Date/Time: 02/16/22 02:01 Attending Provider: Dilan Guevara Admit Provider: Dinesh Romano Primary Care Provider: Candida Andrea Other Providers: Dinesh Romano ; Devon Irizarry ; Christ Dougherty Other Interventions: Discharge Summary Assessment (RN) Last Done: 02/19/22 11:48 Coding Level of Care Code D/C DAY MANAGEMENT >30 MINS Diagnoses Acute lower GI bleeding K92.2 Bowel perforation K63.1 Liver mass R16.0 A-fib I48.91 Chronic kidney disease, stage 4 (severe) N18.4 Hypertension I10 Diabetes mellitus type 2, controlled, with complications E11.8 Chronic combined systolic and diastolic CHF (congestive heart failure) I50.42 BPH (benign prostatic hyperplasia) N40.0 Lower urinary tract symptom presence: symptoms absent Cardiomyopathy I42.9 Dissection of distal aorta I71.00
[2022-02-19 11:49] VITALS: BP 154/68
== END 2022-02-19 13:12 | disposition home or self-care (01) ==
LOC: ED 21:45 → SUATTDRO 02-16 02:01 → EDINP 02-16 02:01 → INTOOBSV 02-16 02:01 → 2N 02-16 02:48
DX: E11.22 Type 2 diabetes mellitus with diabetic chronic kidney disease; K92.2 Gastrointestinal hemorrhage, unspecified; Z79.4 Long term (current) use of insulin; N18.4 Chronic kidney disease, stage 4 (severe); K63.1 Perforation of intestine (nontraumatic); I42.9 Cardiomyopathy, unspecified; Z91.040 Latex allergy status; Z88.5 Allergy status to narcotic agent; I48.91 Unspecified atrial fibrillation; R16.0 Hepatomegaly, not elsewhere classified; K59.00 Constipation, unspecified; I50.41 Acute combined systolic (congestive) and diastolic (congestive) heart failure; Z87.891 Personal history of nicotine dependence; N40.0 Benign prostatic hyperplasia without lower urinary tract symptoms

== ENCOUNTER 2022-03-04 17:25 | Inpatient (IN) ==
[2022-03-04] MEDS ORDERED: SODIUM CHLORIDE 0.9% 1000ML 1,000 ML IV STA (18:01)
[2022-03-04] MEDS ORDERED: ONDANSETRON INJ 2 MG/ML 2 ML VIAL IV STA ×2 (18:01→19:13)
[2022-03-04 18:45] LABS: Basophils # (auto) 0.06 K/uL (0-0.2); Basophils % (auto) 0.4 %; Eosinophils # (auto) 0.09 K/uL (0-0.50); Eosinophils % (auto) 0.5 %; Hematocrit (blood only) 44.8 % (40.1-51.0); Hemoglobin 14.3 g/dl (14.0-18.0); Immature Granulocytes # (auto) 0.19 K/uL (0.00-0.02); Immature Granulocytes % (auto) 1.1 %; Lymphocytes # (auto) 0.82 K/uL (1.2-3.4); Lymphocytes % (auto) 4.9 %; Mean Corpuscular Hemoglobin 31.6 pg (25.0-34.0); Mean Corpuscular Hgb Conc 31.9 g/dL (32.0-36.0); Mean Corpuscular Volume 98.9 fL (80.0-100.0); Mean Platelet Volume 11.3 fL (9.4-12.4); Monocytes # (auto) 2.19 K/uL (0.24-0.82); Monocytes % (auto) 13.1 %; Neutrophils # (auto) 13.39 K/uL (1.4-6.5); Platelet Count 183 K/uL (130-400); RDW Coefficient of Variation 14.6 % (11.5-14.5); RDW Standard Deviation 51.9 fL (36.4-46.3); Red Blood Count 4.53 M/uL (4.63-6.08); White Blood Count 16.74 K/ul (4.8-10.8)
[2022-03-04 19:13] LABS: Alanine Aminotransferase 10 U/L (7-52); Albumin Globulin Ratio 0.8 (0.9-2); Albumin Level 3.3 gm/dl (3.4-5.0); Alkaline Phosphatase 107 U/L (34-104); Anion Gap 8 (3-11); Aspartate Aminotransferase 29 U/L (13-39); Bilirubin,Total 1.5 mg/dl (0.2-1.0); Blood Urea Nitrogen 53 mg/dl (6-23); Calcium 9.2 mg/dl (8.5-10.1); Carbon Dioxide 32 mmol/L (21-32); Chloride 96 mmol/L (98-107); Est GFR (African American) 19.3 ml/min; Est GFR (Non-African American) 16.6 ml/min; Globulin 3.9 gm/dl (2.5-4.0); Glucose 119 mg/dl (70-99(Fasting)); Lipase 18 U/L (11-82); Potassium 3.8 mmol/L (3.5-5.1); Sodium 136 mmol/L (136-145); Total Protein 7.2 gm/dl (6.0-8.3)
[2022-03-04] MEDS ORDERED: fentaNYL citrate 100 MCG/2 ML VIAL IV PRN (19:13)
[2022-03-04] MEDS ORDERED: SODIUM CHLORIDE 0.9% 500 ML IV SCH (19:15)
--- NOTE | 2022-03-04 19:20 | Emergency Department Note ---
Impression & Plan Infarction of spleen, Acute left flank pain, FRANK (acute kidney injury), Liver mass ED Provider Note NAME: JAMEEL BARCENAS AGE: 81 SEX: M : 1940 ARRIVES VIA: Walk-In INFORMANT: Patient, ED PROVIDER(S): Jordan Pena DO CHIEF COMPLAINT: Flank pain HPI: The patient is an 81-year-old male who presented to the emergency d [facility] for an evaluation of flank pain. The patient states he has had ongoing and worsening flank pain over the last few days. Pain became significantly increased today. He said no fever nausea or vomiting. He denies having any dysuria or frequency. He did have a recent CAT scan for a follow-up of a rectal infection. He was told to go to the emergency department because the CT was abnormal. He has a history of an aortic dissection. He does take blood thinners. The CT showed signs of splenic infarction. The patient states the pain is worse with ambulation as well as palpation over the left flank. He denies having any vomiting. He states he is not seen his family doctor for the symptoms today. ROS: See above HPI for pertinent positives & negatives. A total of 10 systems reviewed and were otherwise negative. PAST MEDICAL HISTORY: See Below PAST SURGICAL HISTORY: See Below FAMILY HISTORY: See Below SOCIAL HISTORY: See Below HOME MEDICATIONS: See Below ALLERGIES: See Below VITALS: See Below PHYSICAL EXAMINATION: GENERAL: The patient is alert awake. He appears very anxious and uncomfortable. EYES: The conjunctivae are clear. The pupils are round and reactive. EARS, NOSE, MOUTH AND THROAT: The nose is without any evidence of any deformity. NECK: The neck is nontender and supple. RESPIRATORY: Normal respiratory effort is noted there is no evidence of wheezing rhonchi or rales CARDIOVASCULAR: Regular rate and rhythm noted there no murmurs rubs or gallops normal S1 normal S2. GASTROINTESTINAL: The abdomen is soft and mildly distended. There is left upper quadrant tenderness to palpation. BACK: Left CVA tenderness was noted to percussion. MUSCULOSKELETAL/EXTREMITIES: There is no evidence of gross deformity full range of motion is noted in the hips and shoulders. SKIN: There is no obvious evidence of any rash. Pedal edema was noted bilaterally. NEUROLOGIC: Patient is awake alert and oriented x3. MEDICAL DECISION MAKING: The patient is an 81-year-old male who presented to the emergency department for an evaluation of left-sided flank pain. The patient had a history of a rectal perforation recently. He was managed by general surgeon. The general surgeon ordered repeat CT yesterday and was found to have a splenic infarction. The patient presents emergency department today because of worsening symptoms. The patient was treated with IV fluids and IV pain medication in the emergency department. He was reevaluated multiple times. I discussed patient's laboratory and radiographic studies with him. Given the degree of pain as well as the findings on CT I discussed his case with the on-call [facility] hospitalist. They have agreed to evaluate the patient in the emergency department for further management and disposition. Triage Nursing notes reviewed. Prior medical records reviewed Vital Signs: reviewed and remarkable for elevated blood pressure. Differential diagnosis: Renal colic, UTI, appendicitis, diverticulitis, mesenteric ischemia, aortic pathology, infections, inflammatory bowel disease, PUD, biliary pathology, as well as other pathologies. ER treatment provided: See below Diagnostics interpreted by me: ECG: none Cardiac Monitoring: An order was placed for continuous cardiac monitoring. The monitor shows a rate of 88 bpm with atrial fibrillation. Laboratory studies: As stated above and show below. Imaging studies: See below Consultation(s): I discussed this case with Dr. Coon who is on-call for the [facility] [place] [facility] group. 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 YEAR 10 YEARS AGO History of bronchoscopy History of cardiac cath NO STENTS History of cataract surgery rt/left History of colonoscopy History of ear surgery LEFT MASTOIDECTOMY (DEAF IN LEFT EAR) History of tonsillectomy History of tooth extraction History of total knee replacement RT S/P cholecystectomy Family History Son Colon cancer Coronary heart disease Sister Hypothyroidism Lymphoma Stroke Mother Aortic aneurysm Diabetes Father Heart disease Myocardial infarction Sister Liver problem Other Hypertension Denies family history of Ovarian cancer Prostate cancer Breast cancer Social History Smoking Status: Former smoker Tobacco Type: Cigarettes Age Started Using Tobacco: 16; Age Quit Using Tobacco: 39; packs per day: 5; Years Smoked: 23; Number of Years Since Quit: 39; Second Hand Exposure: No; Hx Alcohol Use: No Hx Substance Use: No Preferred Language: Angolan Communication Ability: Effective Visual Impairment: No Limitations Hearing Ability: Use of Hearing Aid Property Insurance Claims Examiner Required: No Beliefs That Will Affect Care: None marital status: Current Living Situation: Spouse current occupational status: retired current occupation: retired from career [employer] Feels Safe at Home: Yes Childhood Exposure to Second-Hand Smoke: No caffeine: No during the past year weight has: remained stable Dental Care, Regularly: Yes Physical Activity Frequency: Does not Exercise Seatbelt Use: always Sunscreen Use: No Assistive Devices: Cane Allergies Allergies Allergy/AdvReac Type Severity Reaction Status Date / Time morphine Allergy Intermediate DELUSIONS, Verified 03/04/22 07:58 "LOSES TIME" adhesive Allergy Mild RASH Verified 03/04/22 07:58 latex AdvReac Intermediate BLISTERS Verified 03/04/22 07:58 SKIN Home Meds Home Medications Medication Instructions Recorded Confirmed multivitamin (Daily Multi-Vitamin 1 tab PO DAILY 01/20/19 03/04/22 tablet) cholecalciferol (vitamin D3) 50 2,000 unit PO DAILY ##0 03/01/19 03/04/22 mcg (2,000 unit) capsule insulin aspar prot-insulin aspart 15 unit subcut AMPM 10/06/21 03/04/22 100 unit/mL (70-30) subcutaneous pen gabapentin 100 mg capsule 100 mg PO AMPM 01/14/22 03/04/22 metolazone 5 mg tablet 5 mg PO DAILY PRN .weight gain of 02/16/22 03/04/22 3 lbs dabigatran etexilate 75 mg capsule 75 mg PO BID 03/04/22 03/04/22 (Pradaxa) Previous Rx's Medication Instructions Recorded metoprolol succinate 200 mg 200 mg PO QAM #90 tabs 02/01/21 tablet,extended release 24 hr One Touch Ava Meter Kit #1 ea 02/13/21 pen needle, diabetic 31 gauge x #100 ea 02/13/21 3/16" (BD Ultra-Fine Mini Pen Needle) ipratropium 20 mcg-albuterol 100 2 puff inhalation Q6H PRN 03/05/21 mcg/actuation mist for inhalation sob/wheezing #4 grams (Combivent Respimat) lancets 33 gauge (OneTouch Delica #100 ea 04/02/21 Lancets) blood sugar diagnostic (OneTouch #100 ea 08/12/21 Verio test strips) allopurinol 300 mg tablet 300 mg PO QAM #90 tabs 10/10/21 lorazepam 0.5 mg tablet (Ativan) 0.5 mg PO DAILY PRN Sleep #30 tabs 01/06/22 torsemide 20 mg tablet 80 mg PO BID #720 tabs 01/14/22 isosorbide mononitrate 120 mg 120 mg PO QAM #90 tabs 01/15/22 tablet,extended release 24 hr potassium chloride 20 mEq 60 meq PO BID #540 tabs 02/04/22 tablet,extended release levothyroxine 50 mcg tablet 50 mcg PO .COMPLEX #45 tabs 02/13/22 levothyroxine 75 mcg tablet 75 mcg PO .COMPLEX #45 tabs 02/13/22 Results & Data (ED) Vital Signs Vital Signs - 24 hr 03/04/22 18:01 03/04/22 19:38 03/04/22 20:00 Temperature 37.0 C Temperature Source Oral Pulse Rate 80 73 Pulse Rate [Finger] 79 Pulse Rate from SpO2 Sensor Respiratory Rate 20 20 33 H Respiratory Effort / Characteristics Non-Labored Spontaneous Non-Labored Spontaneous Respiratory Depth Normal Blood Pressure 115/67 153/64 H Blood Pressure [Left Arm] 144/68 H Blood Pressure Mean 83 93 Blood Pressure Mean [Left Arm] 93 Blood Pressure Position Sitting Pulse Oximetry 93 91 96 Oxygen Delivery Method Room Air Room Air Room Air Sepsis Recent Fever Within 48 Hours No Sepsis New/Unexplained Change in Mental Status No Sepsis Action Taken by Nursing No Action Required 03/04/22 21:00 03/04/22 22:00 Temperature Temperature Source Pulse Rate 82 Pulse Rate [Finger] Pulse Rate from SpO2 Sensor 85 Respiratory Rate 26 H 27 H Respiratory Effort / Characteristics Respiratory Depth Blood Pressure 140/75 143/68 H Blood Pressure [Left Arm] Blood Pressure Mean 96 93 Blood Pressure Mean [Left Arm] Blood Pressure Position Pulse Oximetry 95 93 Oxygen Delivery Method Room Air Room Air Sepsis Recent Fever Within 48 Hours Sepsis New/Unexplained Change in Mental Status Sepsis Action Taken by Residential Medications Current Medication List: was personally reviewed by me Laboratory Data Attestation: I reviewed the patient's lab results. Result diagrams: 03/04/22 18:32 03/04/22 18:32 Lab Results 03/04/22 03/04/22 03/04/22 Range/Units 18:32 18:32 18:32 WBC 16.74 H (4.8-10.8) K/ul RBC 4.53 L (4.63-6.08) M/uL Hgb 14.3 (14.0-18.0) g/dl Hct 44.8 (40.1-51.0) % MCV 98.9 (80.0-100.0) fL MCH 31.6 (25.0-34.0) pg MCHC 31.9 L (32.0-36.0) g/dL RDW Std Deviation 51.9 H (36.4-46.3) fL RDW Coeff of Laim 14.6 H (11.5-14.5) % Plt Count 183 (130-400) K/uL MPV 11.3 (9.4-12.4) fL Immature Gran % (Auto) 1.1 % Neut % (Auto) 80.0 % Lymph % (Auto) 4.9 % [place] % (Auto) 13.1 % Eos % (Auto) 0.5 % Baso % (Auto) 0.4 % Neut # (Auto) 13.39 H (1.4-6.5) K/uL Lymph # (Auto) 0.82 L (1.2-3.4) K/uL [place] # (Auto) 2.19 H (0.24-0.82) K/uL Eos # (Auto) 0.09 (0-0.50) K/uL Baso # (Auto) 0.06 (0-0.2) K/uL Immature Gran # (Auto) 0.19 H (0.00-0.02) K/uL PT 14.6 H (9.0-12.0) Seconds INR 1.4 H (0.9-1.1) APTT 35.8 H (21.0-31.0) Seconds PTT Ratio 1.3 Sodium 136 (136-145) mmol/L Potassium 3.8 (3.5-5.1) mmol/L Chloride 96 L (98-107) mmol/L Carbon Dioxide 32 (21-32) mmol/L Anion Gap 8 (3-11) BUN 53 H (6-23) mg/dl Creatinine 3.31 H (0.6-1.4) mg/dl Est Cr Clr Drug Dosing Not Reportable Est GFR ( Amer) 19.3 ml/min Est GFR (Non-Af Amer) 16.6 ml/min BUN/Creatinine Ratio 16.0 (10-20) Glucose 119 H (70-99(Fasting)) mg/dl Calcium 9.2 (8.5-10.1) mg/dl Total Bilirubin 1.5 H (0.2-1.0) mg/dl AST 29 (13-39) U/L ALT 10 (7-52) U/L Alkaline Phosphatase 107 H (34-104) U/L Troponin I High Sens (0-20) pg/ml Total Protein 7.2 (6.0-8.3) gm/dl Albumin 3.3 L (3.4-5.0) gm/dl Globulin 3.9 (2.5-4.0) gm/dl Albumin/Globulin Ratio 0.8 L (0.9-2) Lipase 18 (11-82) U/L 03/04/22 Range/Units 18:32 WBC (4.8-10.8) K/ul RBC (4.63-6.08) M/uL Hgb (14.0-18.0) g/dl Hct (40.1-51.0) % MCV (80.0-100.0) fL MCH (25.0-34.0) pg MCHC (32.0-36.0) g/dL RDW Std Deviation (36.4-46.3) fL RDW Coeff of Liam (11.5-14.5) % Plt Count (130-400) K/uL MPV (9.4-12.4) fL Immature Gran % (Auto) % Neut % (Auto) % Lymph % (Auto) % [place] % (Auto) % Eos % (Auto) % Baso % (Auto) % Neut # (Auto) (1.4-6.5) K/uL Lymph # (Auto) (1.2-3.4) K/uL [place] # (Auto) (0.24-0.82) K/uL Eos # (Auto) (0-0.50) K/uL Baso # (Auto) (0-0.2) K/uL Immature Gran # (Auto) (0.00-0.02) K/uL PT (9.0-12.0) Seconds INR (0.9-1.1) APTT (21.0-31.0) Seconds PTT Ratio Sodium (136-145) mmol/L Potassium (3.5-5.1) mmol/L Chloride (98-107) mmol/L Carbon Dioxide (21-32) mmol/L Anion Gap (3-11) BUN (6-23) mg/dl Creatinine (0.6-1.4) mg/dl Est Cr Clr Drug Dosing Est GFR ( Amer) ml/min Est GFR (Non-Af Amer) ml/min BUN/Creatinine Ratio (10-20) Glucose (70-99(Fasting)) mg/dl Calcium (8.5-10.1) mg/dl Total Bilirubin (0.2-1.0) mg/dl AST (13-39) U/L ALT (7-52) U/L Alkaline Phosphatase (34-104) U/L Troponin I High Sens 44.1 H (0-20) pg/ml Total Protein (6.0-8.3) gm/dl Albumin (3.4-5.0) gm/dl Globulin (2.5-4.0) gm/dl Albumin/Globulin Ratio (0.9-2) Lipase (11-82) U/L Administered Medications Discontinued Medications Fentanyl Citrate (Fentanyl Citrate 100 Mcg/2 Ml Vial) 25 mcg IV NOW ONE Stop: 03/04/22 22:45 Last Admin: 03/04/22 22:55 Dose: Not Given Documented By: ASW Fentanyl Citrate (Fentanyl Citrate 100 Mcg/2 Ml Vial) Confirm Administered Dose 100 mcg .ROUTE .STK-MED ONE Stop: 03/04/22 22:47 Last Increment: 03/04/22 22:55 Dose: 25 mcg Documented By: ASW Sodium Chloride (Nss 1000ml) 1,000 mls @ 999 mls/hr IV .Q1H1M STA Stop: 03/04/22 19:01 Last Admin: 03/04/22 20:23 Dose: Not Given Documented By: DP Sodium Chloride (Nss) 500 mls @ 125 mls/hr IV .Q4H SURYA Stop: 04/03/22 19:14 Last Admin: 03/04/22 20:30 Dose: 125 mls/hr Documented By: DP Ondansetron HCl (Ondansetron Inj 2 Mg/Ml 2 Ml Vial) 4 mg IV NOW STA Stop: 03/04/22 18:02 Last Admin: 03/04/22 20:23 Dose: Not Given Documented By: DP Imaging Data Radiologist's Impression: Abdomen/Pelvis CT 03/04/22 19:[address] WITHOUT CONTRAST CT DOSE: 1374.07 mGy.cm HISTORY: Acute left lower quadrant abdominal pain L abd pain TECHNIQUE: Multiaxial CT images of the abdomen and pelvis were performed without contrast. A dose lowering technique was utilized adhering to the principles of ALARA. COMPARISON STUDY: CT abdomen and pelvis 03/03/2022 FINDINGS: Cardiomegaly with coronary artery calcifications. Mild bibasilar atelectasis. No pneumatosis or pneumoperitoneum. The acute or subacute large spl enic infarct is redemonstrated and suboptimally dilated without the use of IV contrast. Perisplenic stranding is unchanged. Mild edema is noted involving the pancreatic tail. Unremarkable adrenal glands. Cholecystectomy. Cirrhotic liver. 7.6 cm left hepatic lobe mass redemonstrated. Mildly atrophic kidneys. Cortical scarring with parenchymal thinning on the right. 1.7 cm right-sided renal cyst. No hydronephrosis. Decompressed urinary bladder with wall thickening. Prostamegaly. Atherosclerosis of the aorta. Unchanged dissection involving the descending thoracic aorta and abdominal aorta extending into the superior mesenteric, left common iliac, left external iliac and left common femoral arteries. No retroperitoneal hematoma. Unchanged iliac chain lymphadenopathy. No bowel obstruction or bowel wall thickening. Normal appendix. Unremarkable soft tissues. No acute fracture. IMPRESSION: 1. No significant change from the CT exam obtained 24 hours earlier. 2. Large acute to subacute appearing splenic infarct with perisplenic stranding redemonstrated. 3. Mild stranding adjacent to the pancreatic tail is likely secondary to the splenic process. Findings could be correlated with lipase to exclude acute pancreatitis. 4. Cirrhosis with 7.6 cm solid left hepatic lobe mass. Correlate with alpha- fetoprotein level to exclude hepatocellular carcinoma. 5. Unchanged appearance of the chronic aortic dissection. ACT 112: Negative or not required by law. The above report was generated using voice recognition software. It may contain grammatical, syntax or spelling errors. Electronically signed by: Tonio Jensen M.D. 03/04/2022 9:16 PM Discharge Plan Visit Data Chief Complaint: Flank Pain Stated Complaint: REFERRED BY DR, FLANK PAIN, SPLEEN PROBLEM ED Provider: Jordan Pena Discharge Problem: Infarction of spleen, Acute left flank pain, FRANK (acute kidney injury), Liver mass Patient Disposition: Being Evaluated by Hospitalist
[2022-03-04 20:10] LABS: INR 1.4 (0.9-1.1); Partial Thromboplastin Ratio 1.3; Partial Thromboplastin Time 35.8 Seconds (21.0-31.0); Prothrombin Time 14.6 Seconds (9.0-12.0)
--- NOTE | 2022-03-04 21:18 | CT Scan Report ---
ABDOMEN AND PELVIS CT WITHOUT CONTRAST CT DOSE: 1374.07 mGy.cm HISTORY: Acute left lower quadrant abdominal pain L abd pain TECHNIQUE: Multiaxial CT images of the abdomen and pelvis were performed without contrast. A dose lo wering technique was utilized adhering to the principles of ALARA. COMPARISON STUDY: CT abdomen and pelvis 03/03/2022 FINDINGS: Cardiomegaly with coronary artery calcifications. Mild bibasilar atelectasis. No pneumatosi s or pneumoperitoneum. The acute or subacute large splenic infarct is redemonstrated and suboptimally dilated without the use of IV contrast. Perisplenic stranding is unchanged. Mild edema is noted invo lving the pancreatic tail. Unremarkable adrenal glands. Cholecystectomy. Cirrhotic liver. 7.6 cm left hepatic lobe mass redemonstrated. Mildly atrophic kidneys. Cortical scarring with parenchymal thinning on the right. 1.7 cm right-sided renal cyst. No hydronephrosis. Decompressed urinary bladder with wall thickening. Prostamegaly. Athe rosclerosis of the aorta. Unchanged dissection involving the descending thoracic aorta and abdominal aorta extending into the superior mesenteric, left common iliac, left external iliac and left common femoral arteries. No retroperitoneal hematoma. Unchanged iliac chain lymphadenopathy. No bowel obstruction or bowel wall thickening. Normal appendix. Unremarkable soft tissues. No acute f racture. IMPRESSION: 1. No significant change from the CT exam obtained 24 hours earlier. 2. Large acute to subacute appearing splenic infarct with perisplenic stranding redemonstrated. 3. Mild stranding adjacent to the pancreatic tail is likely secondary to the splenic process. Finding s could be correlated with lipase to exclude acute pancreatitis. 4. Cirrhosis with 7.6 cm solid left hepatic lobe mass. Correlate with alpha-fetoprotein level to excl ude hepatocellular carcinoma. 5. Unchanged appearance of the chronic aortic dissection. ACT 112: Negative or not required by law. The above report was generated using voice recognition software. It may contain grammatical, syntax o r spelling errors. Electronically signed by: Tonio Jensen M.D. 03/04/2022 9:16 PM
[2022-03-04] MEDS ORDERED: SODIUM CHLORIDE 0.9% 1000ML 500 ML IV ONE (21:22)
[2022-03-04] MEDS ORDERED: GLUCOSE 10 TAB/TUBE PO PRN (22:37)
[2022-03-04] MEDS ORDERED: MoRPHine SULFATE 2 MG/ML CARP IV PRN (22:37)
[2022-03-04] MEDS ORDERED: CARBOHYDRATES FOR HYPOGLYCEMIA PO PRN (22:37)
[2022-03-04] MEDS ORDERED: DEXTROSE 50% 50 ML SYRINGE IV PRN (22:37)
[2022-03-04] MEDS ORDERED: LACTATED RINGER'S 1,000 ML IV SCH (22:37)
[2022-03-04] MEDS ORDERED: GLUCAGON FOR INJ 1 MG VIAL SQ PRN (22:37)
[2022-03-04] MEDS ORDERED: GLUCOSE 40% GEL 15 GM TUBE PO PRN (22:37)
[2022-03-04] MEDS ORDERED: ONDANSETRON INJ 2 MG/ML 2 ML VIAL IV PRN (22:37)
[2022-03-04] MEDS ORDERED: MoRPHine SULFATE 4 MG/ML 1 ML CARP\\VIAL IV PRN (22:37)
[2022-03-04] MEDS ORDERED: IPRATROPIUM BROMIDE/ALBUTEROL respimat INH INH PRN (22:37)
--- NOTE | 2022-03-04 22:43 | History & Physical Report ---
Date of Service March 04, 2022 Assessment & Plan (1) Liver mass: (2) A-fib: (3) Chronic kidney disease, stage 4 (severe): (4) Chronic right-sided congestive heart failure: (5) Cellulitis of right lower leg: (6) Hypertension: (7) Incontinent of urine: (8) Chronic obstructive pulmonary disease: (9) Splenic infarct: (10) Hypothyroidism: Plan #Splenic infarct #L Flank pain -CT ab/pelvis performed today so no change from previous test done 24 hours ago. -Saw surgery yesterday with this issue. -Consulted surgery to see if any intervention is needed at this time. -Percocet prn for pain, zofran prn for nausea -Lipase was normal, making acute pancreatitis unlikely -Trend BMP and CBC with diff #Black stool -Hgb stable at 14.3 -PT/INR/APTT elevated -Will order stool Hemoccult test -Will monitor in AM labs -Was restarted on Pradaxa yesterday. Will hold for now d/t possible GI bleed. -GI bleed seems unlikely at this time. #Cirrhosis with Liver mass -CT also showed Cirrhosis with 7.6 cm solid L hepatic mass. AFP on 02/17/22 within normal range at 2.6. -AST and ALT WNL. Alk phos slightly elevated but baseline for patient. will trend LFTs but liver etiology for patient's current condition seems unlikely. -Patient is to supposed to f/u outpatient with [facility]. -Bilirubin elevated at 1.5 (1.4 on 02/18), patient with cholecystectomy in the past #Leukocytosis -patient has a leukocytosis of 16.74 -Patient does not have any signs of infection at this time but will continue to trend in labs -Recently was on antibiotics from his last hospital stay and just finished them up 2 days ago. #FRANK with CKD III - Cr was 3.31 today (baseline between 2.11-2.95?). 1.84 on 02/18 - BUN was elevated at 53. BUN/Cr was normal - Started on 1 L LR. check Cr and BUN with AM labs. - Pre-renal causes of patient's FRANK is unlikely at this time due to the BUN/Cr ratio being normal. Elevated troponin -Patient is not having active CP -Troponin HS was 44.1 in the ED -Will repeat troponin 6 hours after first. COPD -Albuterol and Atrovent Prn SOB/wheezing #DMII -Patient's home regimen held on admission -Continue BSG checks, sliding-scale insulin, hypoglycemic protocol -Given a bolus of insulin -POC glucose was 119 -Continue home gabapentin #Gout -Continue home allopurinol #Hypothyroidism -Continue home Synthroid schedule #HTN #AFib -Continue home metoprolol -Continue home Imdur QAM CHF -Holding home medications due to renal function. #H/o Aortic Dissection repair -Unchanged on CT FEN: LR 1 liter @ 100mls/hr, NPO Code status: Full code DVT ppx: SCD Consults: Surgery Dispo: med/surg with telemetry Thank you for allowing me to participate in the care of your patient. -Dr. Jonathan Dick PGY1 History of Present Illness Chief Complaint: L flank pain Primary Care Provider: JOSE Leon The patient is an 81-year-old male with an extensive PMHx (see below) who presented to the emergency department for an evaluation of L sided flank pain. Patient was recently hospitalized following GI bleed secondary to microperforation of rectum following enema from 02/16-02/19. Patient saw Dr. Irizarry for f/u on his rectal injury on 03/03 and while at this visit complained about L flank pain. Patient then got a CT on 03/03, which showed a splenic infarct on CT. Dr. Irizarry was made aware and no surgical indication was needed at that time unless discomfort or pain got worse. Patient stated that the pain got worse around 5pm today and then the wound nurse called and told him to go to the ED. Pain is worse while ambulation and gets better when he is resting. Patient reports that yesterday when he saw Dr. Irizarry that his pain was a 4/10 and now is a 8/10. Patient also states that he has been having black diarrhea since yesterday that occurs every hour. He was recently restarted on a blood thinner. He states that he did have 3 episodes of vomiting yesterday and felt very sweaty at the time but now has no more N/V. Patient denies any fevers, chills, or CP. Allergies Allergy/AdvReac Type Severity Reaction Status Date / Time morphine Allergy Intermediate DELUSIONS, Verified 03/04/22 07:58 "LOSES TIME" adhesive Allergy Mild RASH Verified 03/04/22 07:58 latex AdvReac Intermediate BLISTERS Verified 03/04/22 07:58 SKIN Home Medications Medication Instructions Recorded Confirmed Type multivitamin (Daily Multi-Vitamin 1 tab PO DAILY 01/20/19 03/04/22 History tablet) cholecalciferol (vitamin D3) 50 2,000 unit PO DAILY ##0 03/01/19 03/04/22 History mcg (2,000 unit) capsule metoprolol succinate 200 mg 200 mg PO QAM #90 tabs 02/01/21 03/04/22 Rx tablet,extended release 24 hr One Touch Ava Meter Kit #1 ea 02/13/21 03/04/22 Rx pen needle, diabetic 31 gauge x #100 ea 02/13/21 03/04/22 Rx 3/16" (BD Ultra-Fine Mini Pen Needle) ipratropium 20 mcg-albuterol 100 2 puff inhalation Q6H PRN 03/05/21 03/04/22 Rx mcg/actuation mist for inhalation sob/wheezing #4 grams (Combivent Respimat) lancets 33 gauge (OneTouch Delica #100 ea 04/02/21 03/04/22 Rx Lancets) blood sugar diagnostic (OneTouch #100 ea 08/12/21 03/04/22 Rx Verio test strips) insulin aspar prot-insulin aspart 15 unit subcut AMPM 10/06/21 03/04/22 History 100 unit/mL (70-30) subcutaneous pen allopurinol 300 mg tablet 300 mg PO QAM #90 tabs 10/10/21 03/04/22 Rx lorazepam 0.5 mg tablet (Ativan) 0.5 mg PO DAILY PRN Sleep #30 tabs 01/06/22 03/04/22 Rx gabapentin 100 mg capsule 100 mg PO AMPM 01/14/22 03/04/22 History torsemide 20 mg tablet 80 mg PO BID #720 tabs 01/14/22 03/04/22 Rx isosorbide mononitrate 120 mg 120 mg PO QAM #90 tabs 01/15/22 03/04/22 Rx tablet,extended release 24 hr potassium chloride 20 mEq 60 meq PO BID #540 tabs 02/04/22 03/04/22 Rx tablet,extended release levothyroxine 50 mcg tablet 50 mcg PO .COMPLEX #45 tabs 02/13/22 03/04/22 Rx levothyroxine 75 mcg tablet 75 mcg PO .COMPLEX #45 tabs 02/13/22 03/04/22 Rx metolazone 5 mg tablet 5 mg PO DAILY PRN .weight gain of 02/16/22 03/04/22 History 3 lbs dabigatran etexilate 75 mg capsule 75 mg PO BID 03/04/22 03/04/22 History (Pradaxa) Past Med/Surg History Medical History (Updated 03/05/22 @ 19:03 by Khris Brenner MD) Allergic rhinitis Arthritis BPH (benign prostatic hyperplasia) Cardiomyopathy Chronic combined systolic and diastolic CHF (congestive heart failure) Chronic kidney disease, stage 3 Chronic obstructive pulmonary disease Claustrophobia Congestive heart failure [facility] COPD (chronic obstructive pulmonary disease) Diabetic nephropathy associated with type 2 diabetes mellitus Hearing deficit 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 YEAR 10 YEARS AGO History of bronchoscopy History of cardiac cath NO STENTS History of cataract surgery rt/left History of colonoscopy History of ear surgery LEFT MASTOIDECTOMY (DEAF IN LEFT EAR) History of tonsillectomy History of tooth extraction History of total knee replacement RT S/P cholecystectomy Family History Son Colon cancer Coronary heart disease Sister Hypothyroidism Lymphoma Stroke Mother Aortic aneurysm Diabetes Father Heart disease Myocardial infarction Sister Liver problem Other Hypertension Denies family history of Ovarian cancer Prostate cancer Breast cancer Social History Smoking Status: Former smoker Tobacco Type: Cigarettes Age Started Using Tobacco: 16; Age Quit Using Tobacco: 39; packs per day: 5; Years Smoked: 23; Number of Years Since Quit: 39; Second Hand Exposure: No; Hx Alcohol Use: No Hx Substance Use: No Preferred Language: Iraqi Communication Ability: Effective Visual Impairment: No Limitations Hearing Ability: Use of Hearing Aid Bag Washer Required: No Beliefs That Will Affect Care: None marital status: Current Living Situation: Spouse current occupational status: retired 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 [employer] Feels Safe at Home: Yes Safety Concerns: Feels Safe At This Time Childhood Exposure to Second-Hand Smoke: No caffeine: No during the past year weight has: remained stable Dental Care, Regularly: Yes Physical Activity Frequency: Does not Exercise Seatbelt Use: always Sunscreen Use: No Assistive Devices: Cane and Walker Review of Systems Review of Systems: All systems reviewed & are unremarkable except as noted in HPI & below Physical Exam Constitutional: WD/WN, vitals as above + obese Eyes: PERRL, conjunctivae normal, anicteric sclerae Neck: trachea midline, no thyromegaly Respiratory: normal respiratory effort, lungs clear to auscultation Cardiovascular: RRR, no murmur, no edema Gastrointestinal (Abdomen): Inspection/Auscultation: normal bowel sounds Percussion/Palpation: + abdomen tender (URQ) Musculoskeletal: L sided flank tenderness and L CVA tenderness Skin: no rashes, warm and dry Psychiatric: Orientation: alert and oriented x 3 Results & Data Results & Data ([facility]) Vital Signs (Past 12 Hours) Vital Signs Temp Pulse Pulse Resp BP BP Pulse Ox 03/04/22 20:00 73 33 H 153/64 H 96 03/04/22 19:38 79 20 144/68 H 91 03/04/22 18:01 37.0 C 80 20 115/67 93 O2 Del Method 03/04/22 20:00 Room Air 03/04/22 19:38 Room Air 03/04/22 18:01 Room Air Laboratory Results Abnormal lab results 03/04/22 03/04/22 03/04/22 Range/Units 18:32 18:32 18:32 WBC 16.74 H (4.8-10.8) K/ul RBC 4.53 L (4.63-6.08) M/uL MCHC 31.9 L (32.0-36.0) g/dL RDW Std Deviation 51.9 H (36.4-46.3) fL RDW Coeff of Liam 14.6 H (11.5-14.5) % Neut # (Auto) 13.39 H (1.4-6.5) K/uL Lymph # (Auto) 0.82 L (1.2-3.4) K/uL Mercer # (Auto) 2.19 H (0.24-0.82) K/uL Immature Gran # (Auto) 0.19 H (0.00-0.02) K/uL PT 14.6 H (9.0-12.0) Seconds INR 1.4 H (0.9-1.1) APTT 35.8 H (21.0-31.0) Seconds Chloride 96 L (98-107) mmol/L BUN 53 H (6-23) mg/dl Creatinine 3.31 H (0.6-1.4) mg/dl Glucose 119 H (70-99(Fasting)) mg/dl Total Bilirubin 1.5 H (0.2-1.0) mg/dl Alkaline Phosphatase 107 H (34-104) U/L Troponin I High Sens (0-20) pg/ml Albumin 3.3 L (3.4-5.0) gm/dl Albumin/Globulin Ratio 0.8 L (0.9-2) 03/04/22 Range/Units 18:32 WBC (4.8-10.8) K/ul RBC (4.63-6.08) M/uL MCHC (32.0-36.0) g/dL RDW Std Deviation (36.4-46.3) fL RDW Coeff of Liam (11.5-14.5) % Neut # (Auto) (1.4-6.5) K/uL Lymph # (Auto) (1.2-3.4) K/uL Mercer # (Auto) (0.24-0.82) K/uL Immature Gran # (Auto) (0.00-0.02) K/uL PT (9.0-12.0) Seconds INR (0.9-1.1) APTT (21.0-31.0) Seconds Chloride (98-107) mmol/L BUN (6-23) mg/dl Creatinine (0.6-1.4) mg/dl Glucose (70-99(Fasting)) mg/dl Total Bilirubin (0.2-1.0) mg/dl Alkaline Phosphatase (34-104) U/L Troponin I High Sens 44.1 H (0-20) pg/ml Albumin (3.4-5.0) gm/dl Albumin/Globulin Ratio (0.9-2) Diagnostic Findings Abdomen/Pelvis CT 03/04/22 19:[address] WITHOUT CONTRAST CT DOSE: 1374.07 mGy.cm HISTORY: Acute left lower quadrant abdominal pain L abd pain TECHNIQUE: Multiaxial CT images of the abdomen and pelvis were performed without contrast. A dose lowering technique was utilized adhering to the principles of ALARA. COMPARISON STUDY: CT abdomen and pelvis 03/03/2022 FINDINGS: Cardiomegaly with coronary artery calcifications. Mild bibasilar atelectasis. No pneumatosis or pneumoperitoneum. The acute or subacute large splenic infarct is redemonstrated and suboptimally dilated without the use of IV contrast. Perisplenic stranding is unchanged. Mild edema is noted involving the pancreatic tail. Unremarkable adrenal glands. Cholecystectomy. Cirrhotic liver. 7.6 cm left hepatic lobe mass redemonstrated. Mildly atrophic kidneys. Cortical scarring with parenchymal thinning on the right. 1.7 cm right-sided renal cyst. No hydronephrosis. Decompressed urinary bladder with wall thickening. Prostamegaly. Atherosclerosis of the aorta. Unchanged dissection involving the descending thoracic aorta and abdominal aorta extending into the superior mesenteric, left common iliac, left external iliac and left common femoral arteries. No retroperitoneal hematoma. Unchanged iliac chain lymphadenopathy. No bowel obstruction or bowel wall thickening. Normal appendix. Unremarkable soft tissues. No acute fracture. IMPRESSION: 1. No significant change from the CT exam obtained 24 hours earlier. 2. Large acute to subacute appearing splenic infarct with perisplenic stranding redemonstrated. 3. Mild stranding adjacent to the pancreatic tail is likely secondary to the splenic process. Findings could be correlated with lipase to exclude acute pancreatitis. 4. Cirrhosis with 7.6 cm solid left hepatic lobe mass. Correlate with alpha- fetoprotein level to exclude hepatocellular carcinoma. 5. Unchanged appearance of the chronic aortic dissection. ACT 112: Negative or not required by law. The above report was generated using voice recognition software. It may contain grammatical, syntax or spelling errors. Electronically signed by: Tonio Jensen M.D. 03/04/2022 9:16 PM Medications Administered Home Medications multivitamin (Daily Multi-Vitamin tablet) 1 tab PO DAILY 01/20/19 [History Confirmed 03/04/22] cholecalciferol (vitamin D3) 50 mcg (2,000 unit) capsule 2,000 unit PO DAILY ##0 03/01/19 [History Confirmed 03/04/22] metoprolol succinate 200 mg tablet,extended release 24 hr 200 mg PO QAM #90 tabs 02/01/21 [Rx Confirmed 03/04/22] One Touch Ava Meter Kit #1 ea 02/13/21 [Rx Confirmed 03/04/22] pen needle, diabetic 31 gauge x 3/16" (Whi Ultra-Fine Mini Pen Needle) #100 ea 02/13/21 [Rx Confirmed 03/04/22] ipratropium 20 mcg-albuterol 100 mcg/actuation mist for inhalation (Combivent Respimat) 2 puff inhalation Q6H PRN sob/wheezing #4 grams 03/05/21 [Rx Confirmed 03/04/22] lancets 33 gauge (Xiaohongshu Delica Lancets) #100 ea 04/02/21 [Rx Confirmed 03/04/22] blood sugar diagnostic ([id number] Verio test strips) #100 ea 08/12/21 [Rx Confirmed 03/04/22] insulin aspar prot-insulin aspart 100 unit/mL (70-30) subcutaneous pen 15 unit subcut AMPM 10/06/21 [History Confirmed 03/04/22] allopurinol 300 mg tablet 300 mg PO QAM #90 tabs 10/10/21 [Rx Confirmed 03/04/22] lorazepam 0.5 mg tablet (Ativan) 0.5 mg PO DAILY PRN Sleep #30 tabs 01/06/22 [Rx Confirmed 03/04/22] gabapentin 100 mg capsule 100 mg PO AMPM 01/14/22 [History Confirmed 03/04/22] torsemide 20 mg tablet 80 mg PO BID #720 tabs 01/14/22 [Rx Confirmed 03/04/22] isosorbide mononitrate 120 mg tablet,extended release 24 hr 120 mg PO QAM #90 tabs 01/15/22 [Rx Confirmed 03/04/22] potassium chloride 20 mEq tablet,extended release 60 meq PO BID #540 tabs 02/04/22 [Rx Confirmed 03/04/22] levothyroxine 50 mcg tablet 50 mcg PO .COMPLEX #45 tabs 02/13/22 [Rx Confirmed 03/04/22] levothyroxine 75 mcg tablet 75 mcg PO .COMPLEX #45 tabs 02/13/22 [Rx Confirmed 03/04/22] metolazone 5 mg tablet 5 mg PO DAILY PRN .weight gain of 3 lbs 02/16/22 [History Confirmed 03/04/22] dabigatran etexilate 75 mg capsule (Pradaxa) 75 mg PO BID 03/04/22 [History Confirmed 03/04/22] Active Medications Albuterol (Albuterol Hfa 8 Gm Inhaler) 2 puffs INH Q6H PRN PRN Reason: SOB/WHEEZING Stop: 04/03/22 22:52 Allopurinol (Allopurinol 100 Mg Tab) 100 mg PO QAM ON LICENSE OF [facility] Stop: 04/04/22 08:59 Dextrose (Dextrose 50% 50 Ml Syringe) 25 - 50 ml IV UD PRN; Protocol PRN Reason: Hypoglycemia Protocol Stop: 04/03/22 22:36 Gabapentin (Gabapentin 100 Mg Cap) 100 mg PO BID SURYA Stop: 04/03/22 22:36 Glucagon (Glucagon For Inj 1 Mg Vial) 1 mg SQ UD PRN; Protocol PRN Reason: Hypoglycemia Protocol Stop: 04/03/22 22:36 Glucose (Glucose 40% Gel 15 Gm Tube) 15 - 30 gm PO UD PRN; Protocol PRN Reason: Hypoglycemia Protocol Stop: 04/03/22 22:36 Glucose (Glucose 10 Tab/Tube) 4 - 8 tab PO UD PRN; Protocol PRN Reason: Hypoglycemia Treatment Stop: 04/03/22 22:36 Lactated Ringer's (Lr) 1,000 mls @ 100 mls/hr IV .Q10H ON LICENSE OF [facility] Stop: 03/05/22 08:36 Insulin Aspart (Insulin Aspart Per Unit) 0 units SC ACHS ON LICENSE OF [facility] Stop: 04/04/22 07:29 Insulin Glargine (Lantus Per Unit Charge) 5 units SQ BID ON LICENSE OF [facility] Stop: 04/04/22 08:59 Ipratropium [place] (Ipratropium [place] Hfa Inhaler) 2 puffs INH Q6H PRN PRN Reason: SOB/WHEEZING Stop: 04/03/22 22:52 Isosorbide Mononitrate (Isosorbide [place] Extended Rel 60 Mg Tabcr) 120 mg PO QAM ON LICENSE OF [facility] Stop: 04/04/22 08:59 Levothyroxine Sodium (Levothyroxine Sodium 75 Mcg Tablet) 75 mcg PO Q48H ON LICENSE OF [facility] Stop: 04/05/22 06:29 Levothyroxine Sodium (Levothyroxine Sodium 50 Mcg Tablet) 50 mcg PO Q48H ON LICENSE OF [facility] Stop: 04/04/22 06:29 Metoprolol Succinate (Metoprolol Succ 50mg Ext Rel Tab) 200 mg PO QAM ON LICENSE OF [facility] Stop: 04/04/22 08:59 Miscellaneous (Carbohydrates For Hypoglycemia ) 15 - 30 gm PO UD PRN PRN Reason: Hypoglycemia Protocol Stop: 04/03/22 22:36 Miscellaneous (Patient's Height &/Or Weight Needed) 1 each N/A Q2H ON LICENSE OF [facility] Stop: 04/03/22 22:59 Ondansetron HCl (Ondansetron Inj 2 Mg/Ml 2 Ml Vial) 4 mg IV Q6H PRN PRN Reason: Nausea Stop: 04/03/22 22:36 Oxycodone/Acetaminophen (Oxycodone/Acetaminophen 5mg/325mg Tab) 1 tab PO Q4H PRN PRN Reason: MODERATE Pain (4,5,6) & Pre PT Stop: 03/18/22 22:45 Oxycodone/Acetaminophen (Oxycodone/Acetaminophen 5mg/325mg Tab) 2 tab PO Q4H PRN PRN Reason: SEVERE Pain (7,8,9,10) Stop: 03/18/22 22:45 Code Status & VTE Plan VTE Prophylaxis Plan VTE Prophylaxis will be ordered: Yes Supervising Physician Co-Signing Physician Notes Patient seen and examined, chart reviewed, case discussed with Dr. Dick and I agree with the assessment and plan as above. In brief, patient is an 81yo male presenting with left flank pain. Patient was recently hospitalized for a rectal microperforation following an enema which was treated conservatively. Followup CT performed for pain/nausea revealed splenic infarct - patient with history of AF, thought most likely to be cardioembolic in nature. Patient was evaluated by General Surgery for this issue - as patient non-toxic, HD stable and pain controlled - conservative management. Admitted with left flank pain. CT of the abdomen with stable splenic infarct Afebrile, HD stable, in mild discomfort at left flank +S1/S2, regular Lungs CTA Abd soft, ND, tender at LLQ with voluntary guarding, no rebound or peritonitis Ext warm, well perfused Labs and images reviewed Assessment/Plan Splenic infarct now with left flank pain - controlled with PO agents. HD stable. Abdomen is tender but not acutely surgical -Consult general surgery -Monitor hemodynamics and abdominal exams -Pain control, nausea control Black stool - ?bleed. Patient recently resumed pradaxa -Check hemoccult stool Liver mass - patient with cirrhosis as well. AFP within normal range -Is to have outpatient followup Remainder of plan as above Resident Activity Tracking Resident Involvement: Resident Care Provided Care Provided: Adult Hospital Medicine (1) Hypothyroidism Hypothyroidism type: acquired Qualified Code(s): E03.9 - Hypothyroidism, unspecified
[2022-03-04] MEDS ORDERED: fentaNYL citrate 100 MCG/2 ML VIAL IV ONE (22:44)
[2022-03-04] MEDS ORDERED: fentaNYL citrate 100 MCG/2 ML VIAL ONE (22:46)
[2022-03-04] MEDS ORDERED: oxyCODONE/ACETAMINOPHEN 5mg/325mg TAB PO PRN (22:46)
[2022-03-04] MEDS ORDERED: ALBUTEROL HFA 8 GM INHALER INH PRN (22:53)
[2022-03-04] MEDS ORDERED: IPRATROPIUM BROMIDE HFA INHALER INH PRN (22:53)
[2022-03-04] MEDS ORDERED: Patient's HEIGHT &/or WEIGHT Needed SCH (23:00)
[2022-03-05] MEDS: GABAPENTIN 100 MG CAP PO SCH ×3 (01:10→20:28)
[2022-03-05 01:25] LABS: Basophils # (auto) 0.05 K/uL (0-0.2); Basophils % (auto) 0.3 %; Eosinophils % (auto) 0.7 %; Hematocrit (blood only) 42.8 % (40.1-51.0); Hemoglobin 13.7 g/dl (14.0-18.0); Immature Granulocytes # (auto) 0.21 K/uL (0.00-0.02); Immature Granulocytes % (auto) 1.4 %; Lymphocytes # (auto) 0.93 K/uL (1.2-3.4); Lymphocytes % (auto) 6.2 %; Mean Corpuscular Hemoglobin 31.6 pg (25.0-34.0); Mean Corpuscular Volume 98.8 fL (80.0-100.0); Mean Platelet Volume 11.6 fL (9.4-12.4); Monocytes # (auto) 1.93 K/uL (0.24-0.82); Monocytes % (auto) 12.9 %; Neutrophils # (auto) 11.78 K/uL (1.4-6.5); Neutrophils % (auto) 78.5 %; Platelet Count 167 K/uL (130-400); RDW Coefficient of Variation 14.2 % (11.5-14.5); RDW Standard Deviation 51.7 fL (36.4-46.3); Red Blood Count 4.33 M/uL (4.63-6.08)
[2022-03-05 01:45] LABS: Bilirubin Direct 0.3 mg/dl (0-0.2); Bilirubin,Total 1.1 mg/dl (0.2-1.0); Calcium 8.8 mg/dl (8.5-10.1); Creatinine Clr Calc Pharmacy 20.5 ml/min; Est GFR (African American) 17.4 ml/min; Potassium 4.2 mmol/L (3.5-5.1); Total Protein 6.7 gm/dl (6.0-8.3)
[2022-03-05] MEDS: oxyCODONE/ACETAMINOPHEN 5mg/325mg TAB PO PRN (02:11)
[2022-03-05] MEDS: LEVOTHYROXINE SODIUM 50 MCG TABLET PO SCH (05:58)
--- NOTE | 2022-03-05 08:24 | Hospitalist Progress Note ---
Date of Service March 05, 2022 Assessment & Plan (1) Splenic infarct: Plan: #Splenic infarct with associated L Flank pain -CT ab/pelvis performed 03/04 no change from previous . -Consulted surgery -Percocet prn for pain, zofran prn for nausea -Lipase was normal, making acute pancreatitis unlikely (2) Liver mass: Plan: #Cirrhosis with Liver mass -CT also showed Cirrhosis with 7.6 cm solid L hepatic mass. AFP was ordered in the past which was normal. May consider ordering in the future to r/o hepatocellular carcinoma. -AST and ALT WNL. Alk phos slightly elevated but baseline for patient. will trend LFTs but liver etiology for patient's current condition seems unlikely. -Consult with [facility]. states normal AFP, will consider outpt workup with possible biopsy -Bilirubin elevated at 1.5 (1.4 on 02/18), patient with cholecystectomy in the past #H/o Aortic Dissection repair -Unchanged on CT (3) A-fib: Plan: metoprolol continues , pradaxa held if face of dark bowel movements trend hemaglobin Elevated troponin -Patient is not having active CP -Troponin HS was 44.1 repeat 41 (4) Chronic kidney disease, stage 4 (severe): Plan: #FRANK with CKD III - Cr was 3.31 today (baseline between 2.11-2.95?). 1.84 on 02/18 - BUN was elevated at 53. BUN/Cr was normal - (5) Hypertension: (6) Chronic obstructive pulmonary disease: Plan: continue albuterol and ipatropium (7) Hypothyroidism: Plan: continues on home synthroid (8) Diabetes mellitus type 2, controlled, with complications: Plan: DMII -Patient's home regimen held on admission -Continue BSG checks, sliding-scale insulin, hypoglycemic protocol -Given a bolus of insulin -POC glucose was 119 -Continue home gabapentin Plan Code status: Full code Admission and Anticipated Discharge Date Admission Date: March 04, 2022 Subjective Patient was seen in his hospital room he is generally without much discomfort however on examination his left lower quadrant of his abdomen is significantly uncomfortable. Patient has had some black bowel movements but does relate to taking Pepto-Bismol at home which may explain some of the black bowel movements. Patient has Tubigrip for similar wraps on his lower extremities and will have wound care evaluate this. Review of Systems Review of Systems: Mild distress and fatigue no headache, no visual changes no speech or swallowing issues no chest pain, pressure or palpitations Does have his baseline shortness of breath, but no cough or wheezes Patient evaluated for left abdominal pain initially flank pain but now lower quadrant patient has had black bowel movements no dysuria, hematuria or frequency no focal joint pain does have leg wraps and on his lower extremities where he suffers from chronic venous stasis changes no back pain, CVA tenderness or radicular pain no bruising, bleeding or rashes no focal signs of weakness or numbness or altered sensation no complaints of anxiety or depression.. Physical Exam Physical Exam: The patient appeared chronically ill but well compensated. Vital signs as documented. Head exam is normocephalic atraumatic Neck is without JVD, thyromegaly, or carotid bruits. Lungs are clear to auscultation, diminished at the bases Cardiac exam, Rhythm is regular.. No murmurs, rubs or gallops. Abdominal exam reveals normal bowel sounds, soft newness left lower quadrant without masses or hernia defect felt Extremities are swelling with chronic stasis changes and leg wraps in place Neurologic exam is alert and oriented, no focal loss of strength or sensation Psychologically is without concerns for anxiety or depression.. Results & Data Results & Data ([facility]) Vital Signs (Past 12 Hours) Vital Signs Pulse Pulse Resp BP BP Pulse Ox O2 Del Method 03/05/22 05:00 76 27 H 137/85 98 Nasal Cannula 03/05/22 04:00 76 21 147/79 H 97 Nasal Cannula 03/05/22 03:01 82 23 137/82 95 Nasal Cannula 03/05/22 02:01 81 27 H 146/83 H 97 Nasal Cannula 03/05/22 01:00 82 28 H 148/65 H 97 Nasal Cannula 03/05/22 00:01 78 27 H 146/70 H 99 Room Air 03/04/22 23:09 85 23 159/86 H 93 Room Air 03/04/22 23:09 88 20 159/86 H 95 Room Air 03/04/22 22:00 82 27 H 143/68 H 93 Room Air 03/04/22 21:00 26 H 140/75 95 Room Air O2 Flow Rate 03/05/22 05:00 2 03/05/22 04:00 2 03/05/22 03:01 2 03/05/22 02:01 2 03/05/22 01:00 2 03/05/22 00:01 03/04/22 23:09 03/04/22 23:09 03/04/22 22:00 03/04/22 21:00 PG Care Time/CCT Total # of Minutes Spent Total Time Spent with Patient: Total time spent is greater than 50% in coordination of care (as documented) at patient's floor/unit and/or counseling patient: Coding Level of Care Code 91091 Subseq Hosp Care Lvl 3 Diagnoses Splenic infarct D73.5 Liver mass R16.0 A-fib I48.91 Chronic kidney disease, stage 4 (severe) N18.4 Hypertension I10 Chronic obstructive pulmonary disease J44.9 Hypothyroidism E03.9 Hypothyroidism type: acquired Diabetes mellitus type 2, controlled, with complications E11.8 (1) Hypothyroidism Hypothyroidism type: acquired Qualified Code(s): E03.9 - Hypothyroidism, unspecified
[2022-03-05] MEDS: ISOSORBIDE MONO EXTENDED REL 60 MG TABCR PO SCH (08:27)
[2022-03-05] MEDS: allopurinoL 100 MG TAB PO SCH (08:27)
[2022-03-05] MEDS: METOPROLOL SUCC 50MG EXT REL TAB PO SCH (08:27)
[2022-03-05] MEDS: INSULIN ASPART PER UNIT SC SCH ×4 (09:39→21:47)
--- NOTE | 2022-03-05 09:41 | Surgery Consultation ---
Date of Consultation March 05, 2022 Assessment & Plan (1) Splenic infarct: This 81-year-old gentleman was admitted to the hospital with a rectal perforation secondary to a fleets enema on 02/16/2022 we elected not to operate on him having extensive comorbid conditions and treat him with antibiotics clinically improved no evidence of any symptoms suspicious for an ongoing pelvic problem secondary to perforation he was discharged on 02/19/2022 and was discharged on Cipro and Flagyl for 10 days and follow-up to the office We saw him in the office on 03/03/2022 where he been complaining nausea and vomiting last 24 hours that had subsided by the time I saw him his stools as before were loose did not have significant control and abdominal exam at the time was pretty much unremarkable some discomfort in the upper abdomen but no tenderness we ordered a CT scan of the abdomen that was done approximately 5:00 in the evening on 03/03/2022 that showed splenic infarct I saw the patient yesterday at approximately 10:00 in the wound clinic where he was been followed for some leg ulceration venous stasis in nature I went over with him and his the CAT scan results telling him that his spleen is infarcted and we would on only operate if the pain was unbearable and just watch him for now and his pain was much better than before and no further nausea or vomiting I did ask him to restart Pradaxa since that was held from the rectal injury and given the splenic infarct most likely atrial fibrillation in origin for embolus I recommended that we restarted I discussed the situation primary provider Apparently last night the patient came into the emergency room stating that the pain really got worse 10 out of 10 worse in the morning it was 4 out of 10 and a repeat CAT scan of abdomen and pelvis was performed this time and shows some inflammation in the pancreas with no extension of the infarct and no other evidence of other abdominal issues We were asked to see the patient in consultation this morning My examination this morning shows him to have significant pain rebound lower quadrant with no upper abdominal or back discomfort With the issue of dark liquid stools that it started last 24 hours and significant pain that he has in the left lower quadrant my suspicions was that he may have embolized to the left colon I reviewed the CT scan that was done last night with the radiologist there was no evidence of any changes in the left lower quadrant to suspect any ischemic colon I discussed the situation and my concerns with Dr. Brenner and also Dr. Dougherty technical laboratory asst Time we will continue watching the patient and maintain a nonoperative stance unless the situation deteriorates and forces our hand to surgery History of Present Illness Attending Physician: Khris Brenner MD History of Present Illness Patient has had abdominal pain with nausea and vomiting off and on and dark liquid stools her last 72 hours Allergies Allergy/AdvReac Type Severity Reaction Status Date / Time morphine Allergy Intermediate DELUSIONS, Verified 03/04/22 07:58 "LOSES TIME" adhesive Allergy Mild RASH Verified 03/04/22 07:58 latex AdvReac Intermediate BLISTERS Verified 03/04/22 07:58 SKIN Home Medications Medication Instructions Recorded Confirmed Type multivitamin (Daily Multi-Vitamin 1 tab PO DAILY 01/20/19 03/04/22 History tablet) cholecalciferol (vitamin D3) 50 2,000 unit PO DAILY ##0 03/01/19 03/04/22 History mcg (2,000 unit) capsule metoprolol succinate 200 mg 200 mg PO QAM #90 tabs 02/01/21 03/04/22 Rx tablet,extended release 24 hr One Touch Ava Meter Kit #1 ea 02/13/21 03/04/22 Rx pen needle, diabetic 31 gauge x #100 ea 02/13/21 03/04/22 Rx 3/16" (BD Ultra-Fine Mini Pen Needle) ipratropium 20 mcg-albuterol 100 2 puff inhalation Q6H PRN 03/05/21 03/04/22 Rx mcg/actuation mist for inhalation sob/wheezing #4 grams (Combivent Respimat) lancets 33 gauge (OneTouch Delica #100 ea 04/02/21 03/04/22 Rx Lancets) blood sugar diagnostic (OneTouch #100 ea 08/12/21 03/04/22 Rx Verio test strips) insulin aspar prot-insulin aspart 15 unit subcut AMPM 10/06/21 03/04/22 History 100 unit/mL (70-30) subcutaneous pen allopurinol 300 mg tablet 300 mg PO QAM #90 tabs 10/10/21 03/04/22 Rx lorazepam 0.5 mg tablet (Ativan) 0.5 mg PO DAILY PRN Sleep #30 tabs 01/06/22 03/04/22 Rx gabapentin 100 mg capsule 100 mg PO AMPM 01/14/22 03/04/22 History torsemide 20 mg tablet 80 mg PO BID #720 tabs 01/14/22 03/04/22 Rx isosorbide mononitrate 120 mg 120 mg PO QAM #90 tabs 01/15/22 03/04/22 Rx tablet,extended release 24 hr potassium chloride 20 mEq 60 meq PO BID #540 tabs 02/04/22 03/04/22 Rx tablet,extended release levothyroxine 50 mcg tablet 50 mcg PO .COMPLEX #45 tabs 02/13/22 03/04/22 Rx levothyroxine 75 mcg tablet 75 mcg PO .COMPLEX #45 tabs 02/13/22 03/04/22 Rx metolazone 5 mg tablet 5 mg PO DAILY PRN .weight gain of 02/16/22 03/04/22 History 3 lbs dabigatran etexilate 75 mg capsule 75 mg PO BID 03/04/22 03/04/22 History (Pradaxa) Patient History Medical History (Updated 03/05/22 @ 19:03 by Khris Brenner MD) Allergic rhinitis Arthritis BPH (benign prostatic hyperplasia) Cardiomyopathy Chronic combined systolic and diastolic CHF (congestive heart failure) Chronic kidney disease, stage 3 Chronic obstructive pulmonary disease Claustrophobia Congestive heart failure [facility] COPD (chronic obstructive pulmonary disease) Diabetic nephropathy associated with type 2 diabetes mellitus Hearing deficit 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 YEAR 10 YEARS AGO History of bronchoscopy History of cardiac cath NO STENTS History of cataract surgery rt/left History of colonoscopy History of ear surgery LEFT MASTOIDECTOMY (DEAF IN LEFT EAR) History of tonsillectomy History of tooth extraction History of total knee replacement RT S/P cholecystectomy Family History Son Colon cancer Coronary heart disease Sister Hypothyroidism Lymphoma Stroke Mother Aortic aneurysm Diabetes Father Heart disease Myocardial infarction Sister Liver problem Other Hypertension Denies family history of Ovarian cancer Prostate cancer Breast cancer Social History Smoking Status: Former smoker Tobacco Type: Cigarettes Age Started Using Tobacco: 16; Age Quit Using Tobacco: 39; packs per day: 5; Years Smoked: 23; Number of Years Since Quit: 39; Second Hand Exposure: No; Hx Alcohol Use: No Hx Substance Use: No Preferred Language: [place] Communication Ability: Effective Visual Impairment: No Limitations Hearing Ability: Use of Hearing Aid Certified Alcohol Counselor Required: No Beliefs That Will Affect Care: None marital status: Current Living Situation: Spouse current occupational status: retired current occupation: retired from [employer] Feels Safe at Home: Yes Safety Concerns: Feels Safe At This Time Childhood Exposure to Second-Hand Smoke: No caffeine: No during the past year weight has: remained stable Dental Care, Regularly: Yes Physical Activity Frequency: Does not Exercise Seatbelt Use: always Sunscreen Use: No Assistive Devices: Cane and Walker Physical Exam Physical Exam: Marked tenderness on palpation left lower quadrant denies any back pain or flank pain Results & Data ([facility]) Vital Signs (Past 12 Hours) Vital Signs Pulse Pulse Resp BP BP Pulse Ox O2 Del Method 03/05/22 08:20 85 32 H 97 03/05/22 08:10 78 25 H 97 03/05/22 08:01 75 25 H 96 03/05/22 08:01 171/86 H 03/05/22 08:00 74 24 91 03/05/22 07:50 76 26 H 97 03/05/22 07:40 78 28 H 96 03/05/22 07:30 76 27 H 97 03/05/22 07:20 79 21 96 03/05/22 07:10 73 23 97 03/05/22 07:01 76 24 96 03/05/22 07:01 154/64 H 03/05/22 07:00 73 25 H 96 03/05/22 06:50 72 28 H 96 03/05/22 06:46 150/91 H 03/05/22 06:46 72 32 H 96 03/05/22 06:40 76 27 H 97 03/05/22 06:30 75 98 03/05/22 06:20 78 99 03/05/22 06:10 76 98 03/05/22 06:00 74 99 03/05/22 05:50 79 23 99 03/05/22 05:00 76 27 H 137/85 98 Nasal Cannula 03/05/22 04:00 76 21 147/79 H 97 Nasal Cannula 03/05/22 03:01 82 23 137/82 95 Nasal Cannula 03/05/22 02:01 81 27 H 146/83 H 97 Nasal Cannula 03/05/22 01:00 82 28 H 148/65 H 97 Nasal Cannula 03/05/22 00:01 78 27 H 146/70 H 99 Room Air 03/04/22 23:09 85 23 159/86 H 93 Room Air 03/04/22 23:09 88 20 159/86 H 95 Room Air 03/04/22 22:00 82 27 H 143/68 H 93 Room Air O2 Flow Rate 03/05/22 08:20 03/05/22 08:10 03/05/22 08:01 03/05/22 08:01 03/05/22 08:00 03/05/22 07:50 03/05/22 07:40 03/05/22 07:30 03/05/22 07:20 03/05/22 07:10 03/05/22 07:01 03/05/22 07:01 03/05/22 07:00 03/05/22 06:50 03/05/22 06:46 03/05/22 06:46 03/05/22 06:40 03/05/22 06:30 03/05/22 06:20 03/05/22 06:10 03/05/22 06:00 03/05/22 05:50 03/05/22 05:00 2 03/05/22 04:00 2 03/05/22 03:01 2 03/05/22 02:01 2 03/05/22 01:00 2 03/05/22 00:01 03/04/22 23:09 03/04/22 23:09 03/04/22 22:00 PG Care Time/CCT Total # of Minutes Spent Total Time Spent with Patient: Total time spent is greater than 50% in coordination of care (as documented) at patient's floor/unit and/or counseling patient: Coding Level of Care Code 81626 Initial Inpt Care Lvl 3 Diagnoses Splenic infarct D73.5
[2022-03-05] MEDS: LANTUS PER UNIT CHARGE SQ SCH ×2 (10:32→21:47)
--- NOTE | 2022-03-05 11:03 | Gastrointestinal Consultation ---
Date of Consultation March 05, 2022 Assessment & Plan (1) Splenic infarct: (2) Liver mass: (3) Acute abdominal pain in left flank: Plan Patient is an 81 year old male with a past medical history including atrial fibrillation, chronic venous insufficiency, CKD stage IV, chronic right-sided CHF, right lower extremity cellulitis, venous stasis ulcer, hypertension, sacroiliitis, myofascial pain, CML, moderate aortic regurgitation, peripheral neuropathy, thoracolumbar radiculopathy, TAMIKA, dissection of distal aorta, diabetic peripheral neuropathy, BPH with LUTS, BPPV, long-term anticoagulant use, vitamin D deficiency, chronic combined systolic and diastolic CHF, and diabetic nephropathy and recent admission on 02/16/22 - 02/19/22 for microperforation of rectum following use of enema at home who presented to the ED with complaints of worsening L sided flank pain that started a few days ago. Imaging showing splenic infarct. - discussed case with Dr. Dougherty. Pain may be ischemic in nature. will check a lactate dehydrogenase level. would defer any scoping at this time given recent perforation. - would advise changing pradaxa to heparin drip. - he has had some dark stools that he tells me has been ongoing for a few days but hgb is stable, also no bowel movements since admission, so unlikely this is a gi bleed. - For cirrhosis and hepatic mass seen on imaging, he had normal AFP, may need to consider liver biopsy as outpatient. - will continue to follow and monitor the patient. Supervising Physician Co-Signing Physician Notes I personally evaluated the patient and agree with the findings as documented by Manjinder Pemberton, PAC Exam: Constitutional: WD/WN, vitals as above General: EOM intact bilaterally Neck: normal visual inspection Respiratory: normal respiratory effort, lungs clear to auscultation Cardiovascular: RRR, no murmur, no edema Gastrointestinal: abdomennormal to inspection, nondistended, soft, mild LLQ tender, no hepatosplenomegaly Musculoskeletal: no cyanosis, head normal to inspection Skin: no rashes, warm and dry Neurologic: moves all extremities Psychiatric: A and O x3, euthymic affect concern for ischemic colitis, continue supportive care and pain control prn, would defer to surgery for further tx at this time History of Present Illness Reason for Consultation: possible ischemic colitis Requesting Physician: Dr. Irizarry Attending Physician: Khris Brenner MD History of Present Illness Patient is an 81 year old male with a past medical history including atrial fibrillation, chronic venous insufficiency, CKD stage IV, chronic right-sided CHF, right lower extremity cellulitis, venous stasis ulcer, hypertension, sacroiliitis, myofascial pain, CML, moderate aortic regurgitation, peripheral neuropathy, thoracolumbar radiculopathy, TAMIKA, dissection of distal aorta, diabetic peripheral neuropathy, BPH with LUTS, BPPV, long-term anticoagulant use, vitamin D deficiency, chronic combined systolic and diastolic CHF, and diabetic nephropathy and recent admission on 02/16/22 - 02/19/22 for microperforation of rectum following use of enema at home who presented to the ED with complaints of worsening L sided flank pain that started a few days ago. He tells me that the pain was as much as an 8/10 at its worst. Pain worse with moving and better with rest. He tells me this has been better since admission. Dr. Irizarry is also seeing the patient and spoke with Dr. Dougherty about the case. He had CT 03/03/22 with splenic infarct. recently restarted on blood thinner with pradaxa. Imaging also revealed cirrhosis with liver mass. this was seen on past admission. AFP normal. sister with history of liver cancer. Stools have been black for a few days. He tells me he tends to move his bowels daily. no stools since admission. no brbpr. hgb stable. He denies any nausea, vomiting, heartburn, dysphagia. Allergies Allergy/AdvReac Type Severity Reaction Status Date / Time morphine Allergy Intermediate DELUSIONS, Verified 03/04/22 07:58 "LOSES TIME" adhesive Allergy Mild RASH Verified 03/04/22 07:58 latex AdvReac Intermediate BLISTERS Verified 03/04/22 07:58 SKIN Home Medications Medication Instructions Recorded Confirmed Type multivitamin (Daily Multi-Vitamin 1 tab PO DAILY 01/20/19 03/04/22 History tablet) cholecalciferol (vitamin D3) 50 2,000 unit PO DAILY ##0 03/01/19 03/04/22 History mcg (2,000 unit) capsule metoprolol succinate 200 mg 200 mg PO QAM #90 tabs 02/01/21 03/04/22 Rx tablet,extended release 24 hr One Touch Ava Meter Kit #1 ea 02/13/21 03/04/22 Rx pen needle, diabetic 31 gauge x #100 ea 02/13/21 03/04/22 Rx 3/16" (BD Ultra-Fine Mini Pen Needle) ipratropium 20 mcg-albuterol 100 2 puff inhalation Q6H PRN 03/05/21 03/04/22 Rx mcg/actuation mist for inhalation sob/wheezing #4 grams (Combivent Respimat) lancets 33 gauge (OneTouch Delica #100 ea 04/02/21 03/04/22 Rx Lancets) blood sugar diagnostic (OneTouch #100 ea 08/12/21 03/04/22 Rx Verio test strips) insulin aspar prot-insulin aspart 15 unit subcut AMPM 10/06/21 03/04/22 History 100 unit/mL (70-30) subcutaneous pen allopurinol 300 mg tablet 300 mg PO QAM #90 tabs 10/10/21 03/04/22 Rx lorazepam 0.5 mg tablet (Ativan) 0.5 mg PO DAILY PRN Sleep #30 tabs 01/06/22 03/04/22 Rx gabapentin 100 mg capsule 100 mg PO AMPM 01/14/22 03/04/22 History torsemide 20 mg tablet 80 mg PO BID #720 tabs 01/14/22 03/04/22 Rx isosorbide mononitrate 120 mg 120 mg PO QAM #90 tabs 01/15/22 03/04/22 Rx tablet,extended release 24 hr potassium chloride 20 mEq 60 meq PO BID #540 tabs 02/04/22 03/04/22 Rx tablet,extended release levothyroxine 50 mcg tablet 50 mcg PO .COMPLEX #45 tabs 02/13/22 03/04/22 Rx levothyroxine 75 mcg tablet 75 mcg PO .COMPLEX #45 tabs 02/13/22 03/04/22 Rx metolazone 5 mg tablet 5 mg PO DAILY PRN .weight gain of 02/16/22 03/04/22 History 3 lbs dabigatran etexilate 75 mg capsule 75 mg PO BID 03/04/22 03/04/22 History (Pradaxa) Patient History Medical History (Updated 03/05/22 @ 11:17 by Manjinder Pemberton PA-C) Allergic rhinitis Arthritis BPH (benign prostatic hyperplasia) Cardiomyopathy Chronic combined systolic and diastolic CHF (congestive heart failure) Chronic kidney disease, stage 3 Chronic obstructive pulmonary disease Claustrophobia Congestive heart failure [facility] COPD (chronic obstructive pulmonary disease) Diabetic nephropathy associated with type 2 diabetes mellitus Hearing deficit 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 YEAR 10 YEARS AGO History of bronchoscopy History of cardiac cath NO STENTS History of cataract surgery rt/left History of colonoscopy History of ear surgery LEFT MASTOIDECTOMY (DEAF IN LEFT EAR) History of tonsillectomy History of tooth extraction History of total knee replacement RT S/P cholecystectomy Family History Son Colon cancer Coronary heart disease Sister Hypothyroidism Lymphoma Stroke Mother Aortic aneurysm Diabetes Father Heart disease Myocardial infarction Sister Liver problem Other Hypertension Denies family history of Ovarian cancer Prostate cancer Breast cancer Social History Smoking Status: Former smoker Tobacco Type: Cigarettes Age Started Using Tobacco: 16; Age Quit Using Tobacco: 39; packs per day: 5; Years Smoked: 23; Number of Years Since Quit: 39; Second Hand Exposure: No; Hx Alcohol Use: No Hx Substance Use: No Preferred Language: Kyrgyz Communication Ability: Effective Visual Impairment: No Limitations Hearing Ability: Use of Hearing Aid Bus Matron Required: No Beliefs That Will Affect Care: None marital status: Current Living Situation: Spouse current occupational status: retired current occupation: retired from career [employer] Feels Safe at Home: Yes Safety Concerns: Feels Safe At This Time Childhood Exposure to Second-Hand Smoke: No caffeine: No during the past year weight has: remained stable Dental Care, Regularly: Yes Physical Activity Frequency: Does not Exercise Seatbelt Use: always Sunscreen Use: No Assistive Devices: Cane and Walker Review of Systems Review of Systems: All systems reviewed & are unremarkable except as noted in HPI & below Physical Exam Constitutional: WD/WN, vitals as above Eyes: + anicteric sclerae and PERRL ENMT: external ear and nose normal, oropharynx normal (hard of hearing) Respiratory: normal respiratory effort, lungs clear to auscultation Cardiovascular: RRR, no murmur, no edema Gastrointestinal (Abdomen): normal bowel sounds, soft, mild left sided tenderness, no guarding. Skin: no rashes, warm and dry Psychiatric: A+Ox3, euthymic affect Results & Data ([facility]) Vital Signs (Past 12 Hours) Vital Signs Temp Pulse Pulse Resp BP BP Pulse Ox 03/05/22 09:59 03/05/22 09:24 36.5 C 81 16 127/72 92 03/05/22 08:20 85 32 H 97 03/05/22 08:10 78 25 H 97 03/05/22 08:01 75 25 H 96 03/05/22 08:01 171/86 H 03/05/22 08:00 74 24 91 03/05/22 07:50 76 26 H 97 03/05/22 07:40 78 28 H 96 03/05/22 07:30 76 27 H 97 03/05/22 07:20 79 21 96 03/05/22 07:10 73 23 97 03/05/22 07:01 76 24 96 03/05/22 07:01 154/64 H 03/05/22 07:00 73 25 H 96 03/05/22 06:50 72 28 H 96 03/05/22 06:46 150/91 H 03/05/22 06:46 72 32 H 96 03/05/22 06:40 76 27 H 97 03/05/22 06:30 75 98 03/05/22 06:20 78 99 03/05/22 06:10 76 98 03/05/22 06:00 74 99 03/05/22 05:50 79 23 99 03/05/22 05:00 76 27 H 137/85 98 03/05/22 04:00 76 21 147/79 H 97 03/05/22 03:01 82 23 137/82 95 03/05/22 02:01 81 27 H 146/83 H 97 03/05/22 01:00 82 28 H 148/65 H 97 03/05/22 00:01 78 27 H 146/70 H 99 03/04/22 23:09 85 23 159/86 H 93 03/04/22 23:09 88 20 159/86 H 95 O2 Del Method O2 Flow Rate 03/05/22 09:59 Room Air 03/05/22 09:24 Room Air 03/05/22 08:20 03/05/22 08:10 03/05/22 08:01 03/05/22 08:01 03/05/22 08:00 03/05/22 07:50 03/05/22 07:40 03/05/22 07:30 03/05/22 07:20 03/05/22 07:10 03/05/22 07:01 03/05/22 07:01 03/05/22 07:00 03/05/22 06:50 03/05/22 06:46 03/05/22 06:46 03/05/22 06:40 03/05/22 06:30 03/05/22 06:20 03/05/22 06:10 03/05/22 06:00 03/05/22 05:50 03/05/22 05:00 Nasal Cannula 2 03/05/22 04:00 Nasal Cannula 2 03/05/22 03:01 Nasal Cannula 2 03/05/22 02:01 Nasal Cannula 2 03/05/22 01:00 Nasal Cannula 2 03/05/22 00:01 Room Air 03/04/22 23:09 Room Air 03/04/22 23:09 Room Air PG Care Time/CCT Total # of Minutes Spent Total Time Spent with Patient: Total time spent is greater than 50% in coordination of care (as documented) at patient's floor/unit and/or counseling patient: Coding Level of Care Code 40653 Initial Inpt Care Lvl 3 Diagnoses Splenic infarct D73.5 Liver mass R16.0 Acute abdominal pain in left flank R10.9
[2022-03-05 15:37] LABS: Appearance Urine Clear (Clear); Bacteria Urine Automated Negative (Negative); Bilirubin Urine Negative (Negative); Blood Urine Negative (Negative); Color Urine Dark Yellow; Epithelial Cell Urine Auto 20-30 /lpf (0-5); Glucose Urine UA Negative (Negative); Ketones Urine Negative (Negative); Leukocyte Esterase Urine Negative (Negative); Nitrite Urine Negative (Negative); Protein Urine 1+ (Negative); RBC Urine Automated 0-4 /hpf (0-4); Urobilinogen Urine Negative (Negative)
--- NOTE | 2022-03-05 21:47 | Billing Data ---
Date of Service March 04, 2022 Coding Level of Care Code 72233 Initial Inpt Care Lvl 3
[2022-03-06] MEDS: INSULIN ASPART PER UNIT SC SCH ×5 (00:47→20:39)
[2022-03-06] MEDS: LEVOTHYROXINE SODIUM 75 MCG TABLET PO SCH (06:22)
[2022-03-06] MEDS: METOPROLOL SUCC 50MG EXT REL TAB PO SCH (07:39)
[2022-03-06] MEDS: allopurinoL 100 MG TAB PO SCH (07:39)
[2022-03-06] MEDS: GABAPENTIN 100 MG CAP PO SCH ×2 (07:40→20:19)
[2022-03-06] MEDS: ISOSORBIDE MONO EXTENDED REL 60 MG TABCR PO SCH (07:40)
[2022-03-06] MEDS: oxyCODONE/ACETAMINOPHEN 5mg/325mg TAB PO PRN (07:51)
--- NOTE | 2022-03-06 08:37 | Surgery Progress Note ---
Date of Service March 06, 2022 Assessment & Plan (1) Splenic infarct: Plan: 03/06/22 PAD#1 the patient is doing much better yesterday encouraging to see that he has not had any more liquid bowel movements and the tenderness in the left lower quadrant is subsided The lab this morning is pending At this point I will start him on clear liquids and advance as tolerated once he reestablishes GI function This 81-year-old gentleman was admitted to the hospital with a rectal perforation secondary to a fleets enema on 02/16/2022 we elected not to operate on him having extensive comorbid conditions and treat him with antibiotics clinically improved no evidence of any symptoms suspicious for an ongoing pelvic problem secondary to perforation he was discharged on 02/19/2022 and was discharged on Cipro and Flagyl for 10 days and follow-up to the office We saw him in the office on 03/03/2022 where he been complaining nausea and vomiting last 24 hours that had subsided by the time I saw him his stools as before were loose did not have significant control and abdominal exam at the time was pretty much unremarkable some discomfort in the upper abdomen but no tenderness we ordered a CT scan of the abdomen that was done approximately 5:00 in the evening on 03/03/2022 that showed splenic infarct I saw the patient yesterday at approximately 10:00 in the wound clinic where he was been followed for some leg ulceration venous stasis in nature I went over with him and his the CAT scan results telling him that his spleen is infarcted and we would on only operate if the pain was unbearable and just watch him for now and his pain was much better than before and no further nausea or vomiting I did ask him to restart Pradaxa since that was held from the rectal injury and given the splenic infarct most likely atrial fibrillation in origin for embolus I recommended that we restarted I discussed the situation primary provider Apparently last night the patient came into the emergency room stating that the pain really got worse 10 out of 10 worse in the morning it was 4 out of 10 and a repeat CAT scan of abdomen and pelvis was performed this time and shows some inflammation in the pancreas with no extension of the infarct and no other evidence of other abdominal issues We were asked to see the patient in consultation this morning My examination this morning shows him to have significant pain rebound lower quadrant with no upper abdominal or back discomfort With the issue of dark liquid stools that it started last 24 hours and significant pain that he has in the left lower quadrant my suspicions was that he may have embolized to the left colon I reviewed the CT scan that was done last night with the radiologist there was no evidence of any changes in the left lower quadrant to suspect any ischemic colon I discussed the situation and my concerns with Dr. Brenner and also Dr. Dougherty newscast director Time we will continue watching the patient and maintain a nonoperative stance unless the situation deteriorates and forces our hand to surgery Admission and Anticipated Discharge Date Admission Date: March 04, 2022 Subjective Feels much better than yesterday states minimal abdominal pain no further nausea but has not had any bowel movements but is passing flatus Physical Exam Physical Exam: Alert coherent much more so than yesterday resting comfortably in bed The abdomen protuberant for body habitus but left lower quadrant tenderness that he had yesterday is subsided significantly where this morning has minimal tenderness mostly guarding The rest of the abdominal exam is negative Results & Data ([facility]) Vital Signs (Past 12 Hours) Vital Signs Temp Pulse Pulse Resp BP Pulse Ox O2 Del Method 03/06/22 07:53 36.4 C L 84 14 156/75 H 90 Room Air 03/06/22 02:52 36.9 C 88 20 126/63 90 Room Air 03/05/22 22:25 78 03/05/22 23:17 37.1 C 87 20 125/60 90 Room Air Laboratory Results pending PG Care Time/CCT Total # of Minutes Spent Total Time Spent with Patient: Total time spent is greater than 50% in coordination of care (as documented) at patient's floor/unit and/or counseling patient: Coding Level of Care Code None Diagnoses Splenic infarct D73.5
[2022-03-06 09:18] LABS: Basophils # (auto) 0.07 K/uL (0-0.2); Basophils % (auto) 0.7 %; Eosinophils % (auto) 2.9 %; Hematocrit (blood only) 40.2 % (40.1-51.0); Hemoglobin 13.1 g/dl (14.0-18.0); Immature Granulocytes # (auto) 0.14 K/uL (0.00-0.02); Immature Granulocytes % (auto) 1.3 %; Lymphocytes # (auto) 0.72 K/uL (1.2-3.4); Lymphocytes % (auto) 6.9 %; Mean Corpuscular Hemoglobin 31.4 pg (25.0-34.0); Mean Corpuscular Hgb Conc 32.6 g/dL (32.0-36.0); Mean Corpuscular Volume 96.4 fL (80.0-100.0); Mean Platelet Volume 11.4 fL (9.4-12.4); Monocytes # (auto) 1.57 K/uL (0.24-0.82); Monocytes % (auto) 15.1 %; Neutrophils # (auto) 7.58 K/uL (1.4-6.5); Neutrophils % (auto) 73.1 %; Platelet Count 173 K/uL (130-400); RDW Coefficient of Variation 14.2 % (11.5-14.5); RDW Standard Deviation 50.4 fL (36.4-46.3); Red Blood Count 4.17 M/uL (4.63-6.08); White Blood Count 10.38 K/ul (4.8-10.8)
[2022-03-06 09:39] LABS: Albumin Globulin Ratio 0.8 (0.9-2); Albumin Level 2.8 gm/dl (3.4-5.0); Bilirubin,Total 0.9 mg/dl (0.2-1.0); Calcium 8.4 mg/dl (8.5-10.1); Creatinine Clr Calc Pharmacy 17.7 ml/min; Est GFR (African American) 14.4 ml/min; Est GFR (Non-African American) 12.4 ml/min; Globulin 3.6 gm/dl (2.5-4.0); Potassium 3.7 mmol/L (3.5-5.1); Total Protein 6.4 gm/dl (6.0-8.3)
[2022-03-06] MEDS: LANTUS PER UNIT CHARGE SQ SCH ×2 (10:22→20:43)
[2022-03-06] MEDS ORDERED: INSULIN ASPART PER UNIT SC SCH (16:30)
--- NOTE | 2022-03-06 18:07 | Hospitalist Progress Note ---
Date of Service March 06, 2022 Assessment & Plan (1) Splenic infarct: Plan: #Splenic infarct with associated L Flank pain resolved -CT ab/pelvis performed 03/04 no change from previous . -Consulted surgery -Percocet prn for pain, zofran prn for nausea -Lipase was normal, making acute pancreatitis unlikely (2) Liver mass: Plan: #Cirrhosis with Liver mass -CT also showed Cirrhosis with 7.6 cm solid L hepatic mass. AFP was ordered in the past which was normal. May consider ordering in the future to r/o hepatocellular carcinoma. -AST and ALT WNL. Alk phos slightly elevated but baseline for patient. will trend LFTs but liver etiology for patient's current condition seems unlikely. -Consult with [facility]. states normal AFP, will consider outpt workup with possible biopsy -Bilirubin elevated at 1.5 (1.4 on 02/18), patient with cholecystectomy in the past #H/o Aortic Dissection repair -Unchanged on CT (3) A-fib: Plan: metoprolol continues , pradaxa held if face of dark bowel movements stable hemaglobi, restart the pradaxa Elevated troponin -Patient is not having active CP -Troponin HS was 44.1 repeat 41 (4) Chronic kidney disease, stage 4 (severe): Plan: #FRANK with CKD III - worsening renal function have nephrology consult =will have ivf and renal us, (5) Hypertension: (6) Chronic obstructive pulmonary disease: Plan: continue albuterol and ipatropium (7) Hypothyroidism: Plan: continues on home synthroid (8) Diabetes mellitus type 2, controlled, with complications: Plan: DMII -Patient's home regimen held on admission -Continue BSG checks, sliding-scale insulin, hypoglycemic protocol -Given a bolus of insulin -POC glucose was 119 -Continue home gabapentin Plan Code status: Full code Admission and Anticipated Discharge Date Admission Date: March 04, 2022 Subjective pt has less pain and is tolerating some liquid diet but wants to try to advance diet pt is infromed about liver mass and understands will have outpt work up Review of Systems Review of Systems: Mild distress and fatigue no headache, no visual changes no speech or swallowing issues no chest pain, pressure or palpitations Does have his baseline shortness of breath, but no cough or wheezes Patient evaluated for left abdominal pain initially flank pain but now lower quadrant patient has had black bowel movements no dysuria, hematuria or frequency no focal joint pain does have leg wraps and on his lower extremities where he suffers from chronic venous stasis changes no back pain, CVA tenderness or radicular pain no bruising, bleeding or rashes no focal signs of weakness or numbness or altered sensation no complaints of anxiety or depression.. Physical Exam Physical Exam: The patient appeared chronically ill but well compensated. Vital signs as documented. Head exam is normocephalic atraumatic Neck is without JVD, thyromegaly, or carotid bruits. Lungs are clear to auscultation, diminished at the bases Cardiac exam, Rhythm is regular.. No murmurs, rubs or gallops. Abdominal exam reveals normal bowel sounds, soft newness left lower quadrant without masses or hernia defect felt Extremities are swelling with chronic stasis changes and leg wraps in place Neurologic exam is alert and oriented, no focal loss of strength or sensation Psychologically is without concerns for anxiety or depression.. Results & Data Results & Data ([facility]) Vital Signs (Past 12 Hours) Vital Signs Temp Pulse Pulse Resp BP Pulse Ox O2 Del Method 03/06/22 14:30 67 03/06/22 15:31 98.1 F 64 16 151/65 H 92 Room Air 03/06/22 12:01 98.2 F 71 16 117/71 90 Room Air 03/06/22 07:00 80 03/06/22 07:53 97.5 F L 84 14 156/75 H 90 Room Air PG Care Time/CCT Total # of Minutes Spent Total Time Spent with Patient: Total time spent is greater than 50% in coordination of care (as documented) at patient's floor/unit and/or counseling patient: Coding Level of Care Code 85127 Subseq Hosp Care Lvl 3 Diagnoses Splenic infarct D73.5 Liver mass R16.0 A-fib I48.91 Chronic kidney disease, stage 4 (severe) N18.4 Hypertension I10 Chronic obstructive pulmonary disease J44.9 Hypothyroidism E03.9 Hypothyroidism type: acquired Diabetes mellitus type 2, controlled, with complications E11.8 (1) Hypothyroidism Hypothyroidism type: acquired Qualified Code(s): E03.9 - Hypothyroidism, unspecified
[2022-03-06] MEDS ORDERED: Heparin IV Adult Wt-Based Standard *NO* Bolus Protocol IV ONE (18:15)
[2022-03-06 18:44] LABS: Basophils # (auto) 0.04 K/uL (0-0.2); Basophils % (auto) 0.4 %; Eosinophils % (auto) 3.4 %; Hematocrit (blood only) 41.9 % (40.1-51.0); Hemoglobin 13.2 g/dl (14.0-18.0); Immature Granulocytes # (auto) 0.08 K/uL (0.00-0.02); Immature Granulocytes % (auto) 0.9 %; Lymphocytes # (auto) 0.66 K/uL (1.2-3.4); Lymphocytes % (auto) 7.4 %; Mean Corpuscular Hgb Conc 31.5 g/dL (32.0-36.0); Mean Corpuscular Volume 98.4 fL (80.0-100.0); Mean Platelet Volume 11.2 fL (9.4-12.4); Monocytes # (auto) 1.26 K/uL (0.24-0.82); Monocytes % (auto) 14.1 %; Neutrophils % (auto) 73.8 %; Platelet Count 177 K/uL (130-400); Red Blood Count 4.26 M/uL (4.63-6.08); White Blood Count 8.94 K/ul (4.8-10.8)
[2022-03-06] MEDS: HEPARIN SODIUM/DEXTROSE 25,000 UNITS/500 ML BAG IV SCH (18:45)
[2022-03-06 18:56] LABS: INR 1.2 (0.9-1.1); Partial Thromboplastin Ratio 1.2; Partial Thromboplastin Time 33.5 Seconds (21.0-31.0); Prothrombin Time 12.7 Seconds (9.0-12.0)
[2022-03-06] MEDS: NORMOSOL-R 1,000 ML IV SCH (20:18)
[2022-03-07 01:01] LABS: Partial Thromboplastin Ratio 2.1
[2022-03-07 01:11] LABS: Partial Thromboplastin Time 56.7 Seconds (21.0-31.0)
[2022-03-07] MEDS: oxyCODONE/ACETAMINOPHEN 5mg/325mg TAB PO PRN (04:30)
[2022-03-07] MEDS: NORMOSOL-R 1,000 ML IV SCH ×3 (04:31→20:52)
[2022-03-07] MEDS: LEVOTHYROXINE SODIUM 50 MCG TABLET PO SCH (06:10)
[2022-03-07 07:05] LABS: Hematocrit (blood only) 39.2 % (40.1-51.0); Mean Corpuscular Hemoglobin 31.6 pg (25.0-34.0); Mean Corpuscular Hgb Conc 33.2 g/dL (32.0-36.0); Mean Corpuscular Volume 95.1 fL (80.0-100.0); Mean Platelet Volume 11.3 fL (9.4-12.4); Platelet Count 168 K/uL (130-400); RDW Coefficient of Variation 13.9 % (11.5-14.5); Red Blood Count 4.12 M/uL (4.63-6.08); White Blood Count 8.91 K/ul (4.8-10.8)
[2022-03-07 07:32] LABS: Partial Thromboplastin Ratio 2.3
[2022-03-07 07:33] LABS: BUN Creatinine Ratio 16.9 (10-20); Calcium 8.1 mg/dl (8.5-10.1); Creatinine Clr Calc Pharmacy 22.3 ml/min; Est GFR (African American) 18.9 ml/min; Est GFR (Non-African American) 16.3 ml/min; Partial Thromboplastin Time 62.3 Seconds (21.0-31.0); Potassium 3.3 mmol/L (3.5-5.1)
[2022-03-07] MEDS ORDERED: MAGNESIUM SULFATE / D5W 1 GM/100 ML BAG IV ONE (07:55)
[2022-03-07] MEDS ORDERED: POTASSIUM CHLORIDE 10 MEQ / 100ML WTR IV STA (07:55)
[2022-03-07] MEDS: INSULIN ASPART PER UNIT SC SCH ×4 (08:45→20:54)
[2022-03-07] MEDS: LANTUS PER UNIT CHARGE SQ SCH ×2 (08:46→20:57)
[2022-03-07] MEDS: ISOSORBIDE MONO EXTENDED REL 60 MG TABCR PO SCH (08:57)
[2022-03-07] MEDS: METOPROLOL SUCC 50MG EXT REL TAB PO SCH (08:57)
[2022-03-07] MEDS: GABAPENTIN 100 MG CAP PO SCH ×2 (08:57→20:52)
[2022-03-07] MEDS: allopurinoL 100 MG TAB PO SCH (08:58)
[2022-03-07] MEDS: POTASSIUM CHLORIDE / WTR 10 MEQ/100 ML PLCT IV SCH ×3 (09:58→13:43)
[2022-03-07] MEDS: HEPARIN SODIUM/DEXTROSE 25,000 UNITS/500 ML BAG IV SCH (10:01)
--- NOTE | 2022-03-07 10:29 | Ultrasound Report ---
US renal/blad retro comp CLINICAL HISTORY: acute renal failure TECHNIQUE: Multiple sonographic real-time images of the kidneys and bladder were obtained. COMPARISON: Comparison is made to renal ultrasound 10/02/2011 FINDINGS: The right kidney measures 10.4 cm in length, and the left kidney measures 10.8 cm in length. The right kidney is normal in size, contour, cortical thickness, and echogenicity. No hydronephrosis is identified. A right lower pole cyst measures 1.7 x 2.0 x 1.5 cm. No perinephric fluid collection is seen. The left kidney is normal in size, contour, cortical thickness and echogenicity. No hydronephrosis i s identified. No renal lesion is identified. No perinephric fluid collection is seen. The bladder is partially distended. No large intraluminal mass is seen. IMPRESSION: No acute abnormality, no evidence of hydronephrosis. ACT 112: Negative or not required by law. Electronically signed by: Saturnino Parra M.D. 03/07/2022 10:28 AM
--- NOTE | 2022-03-07 14:16 | Nephrology Consultation ---
Date of Consultation March 07, 2022 Assessment & Plan (1) Acute kidney injury: Acute on chronic. Clinically consistent with ATN. Non-oliguric. Electrolytes acceptable. No current indication for TWISTER TENDER. No obstruction on imaging. Urine acellular. IVF to encourage intravascular expansion. Avoid notably positive fluid balance. Diuretics held. Rate of normosol reduced. Repeat metabolic profile this evening. Renal diet. Medications appropriately dosed for kidney dysfunction. Goals of care reviewed. (2) Chronic kidney disease, stage 4 (severe): Baseline creatinine 1.8-2.5 mg/dL. Followed by Dr. Zavaleta. DKD and CRS. Updated imaging including CT and US reviewed. (3) Chronic anemia: Chronic, stable. No need for ADRIAN therapy. Will monitor. (4) Diabetic nephropathy associated with type 2 diabetes mellitus: No ROSIBEL/ARB due to history of FRANK. (5) Chronic combined systolic and diastolic CHF (congestive heart failure): Volume status acceptable. Diuretics held. Goal is to maintain even or slightly positive fluid balance. (6) Chronic right-sided congestive heart failure: History of Present Illness Reason for Consultation: FRANK/ATN Requesting Physician: Khris Brenner MD Attending Physician: Khris Brenner MD History of Present Illness Mr. Bryn Olvera is an 81 year-old male with CKD IV A2 attributed to a history of cardiorenal syndrome and DKD. Bryn follows in the outpatient nephrology clinic with Dr. Zavaleta. Baseline creatinine has been 1.8-2.5 mg/dL. UPCR 0.2 at baseline. Bryn was admitted to [facility] on March 04 with left flank pain. Serum creatinine 3.3 mg/dL on presentation. Abdominal CT scan with contrast completed on March 03. Kidneys demonstrate mild symmetric atrophy. Renal US updated today does not demonstrate any evidence of infection. UA notable for +1 protein. Urine microscopy acellular. Medical history notable for HFpEF, predominately chronic right heart failure with pulmonary hypertension, atrial fibrillation, subacute splenic infarct, morbid obesity, TAMIKA, moderate AR, venous insufficiency with chronic LE edema and venous ulcer, hypothyroidism, DMII, hypertension, CML, chronic aortic dissection extending from descending thoracic into the abdominal while involving superior mesenteric and iliac, DOWNEY, imaging evidence of cirrhosis with 7.6 cm hepatic mass. Bryn was admitted to [facility] in December with RLE cellulitis. He was admitted in January with microperforation of the rectum from Fleet enema use. Bryn uses a combination of torsemide with PRN metolazone at home to maintain his volume status. He reports a recent baseline weight of 245 lbs. He typically takes metolazone if weight increases to >250 kg. Creatinine peaked at 4.21 mg/dL yesterday. It is 3.37 mg/dL this AM. Electrolytes within normal limits. Weight increased from 111.5 to 115.8 kg. Normosol infusing at 125 ml/hr. Bryn reports adequate PO intake. Allergies Allergy/AdvReac Type Severity Reaction Status Date / Time morphine Allergy Intermediate DELUSIONS, Verified 03/04/22 07:58 "LOSES TIME" adhesive Allergy Mild RASH Verified 03/04/22 07:58 latex AdvReac Intermediate BLISTERS Verified 03/04/22 07:58 SKIN Home Medications Medication Instructions Recorded Confirmed Type multivitamin (Daily Multi-Vitamin 1 tab PO DAILY 01/20/19 03/04/22 History tablet) cholecalciferol (vitamin D3) 50 2,000 unit PO DAILY ##0 03/01/19 03/04/22 History mcg (2,000 unit) capsule metoprolol succinate 200 mg 200 mg PO QAM #90 tabs 02/01/21 03/04/22 Rx tablet,extended release 24 hr One Touch Ava Meter Kit #1 ea 02/13/21 03/04/22 Rx pen needle, diabetic 31 gauge x #100 ea 02/13/21 03/04/22 Rx 3/16" (BD Ultra-Fine Mini Pen Needle) ipratropium 20 mcg-albuterol 100 2 puff inhalation Q6H PRN 03/05/21 03/04/22 Rx mcg/actuation mist for inhalation sob/wheezing #4 grams (Combivent Respimat) lancets 33 gauge (OneTouch Delica #100 ea 04/02/21 03/04/22 Rx Lancets) blood sugar diagnostic (OneTouch #100 ea 08/12/21 03/04/22 Rx Verio test strips) insulin aspar prot-insulin aspart 15 unit subcut AMPM 10/06/21 03/04/22 History 100 unit/mL (70-30) subcutaneous pen allopurinol 300 mg tablet 300 mg PO QAM #90 tabs 10/10/21 03/04/22 Rx lorazepam 0.5 mg tablet (Ativan) 0.5 mg PO DAILY PRN Sleep #30 tabs 01/06/22 03/04/22 Rx gabapentin 100 mg capsule 100 mg PO AMPM 01/14/22 03/04/22 History torsemide 20 mg tablet 80 mg PO BID #720 tabs 01/14/22 03/04/22 Rx isosorbide mononitrate 120 mg 120 mg PO QAM #90 tabs 01/15/22 03/04/22 Rx tablet,extended release 24 hr potassium chloride 20 mEq 60 meq PO BID #540 tabs 02/04/22 03/04/22 Rx tablet,extended release levothyroxine 50 mcg tablet 50 mcg PO .COMPLEX #45 tabs 02/13/22 03/04/22 Rx levothyroxine 75 mcg tablet 75 mcg PO .COMPLEX #45 tabs 02/13/22 03/04/22 Rx metolazone 5 mg tablet 5 mg PO DAILY PRN .weight gain of 02/16/22 03/04/22 History 3 lbs dabigatran etexilate 75 mg capsule 75 mg PO BID 03/04/22 03/04/22 History (Pradaxa) Patient History Medical History (Updated 03/07/22 @ 14:24 by Gerry Goldman DO) Allergic rhinitis Arthritis BPH (benign prostatic hyperplasia) Cardiomyopathy Chronic combined systolic and diastolic CHF (congestive heart failure) Chronic kidney disease, stage 3 Chronic obstructive pulmonary disease Claustrophobia Congestive heart failure [facility] COPD (chronic obstructive pulmonary disease) Diabetic nephropathy associated with type 2 diabetes mellitus Hearing deficit 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 YEAR 10 YEARS AGO History of bronchoscopy History of cardiac cath NO STENTS History of cataract surgery rt/left History of colonoscopy History of ear surgery LEFT MASTOIDECTOMY (DEAF IN LEFT EAR) History of tonsillectomy History of tooth extraction History of total knee replacement RT S/P cholecystectomy Family History Son Colon cancer Coronary heart disease Sister Hypothyroidism Lymphoma Stroke Mother Aortic aneurysm Diabetes Father Heart disease Myocardial infarction Sister Liver problem Other Hypertension Denies family history of Ovarian cancer Prostate cancer Breast cancer Social History Smoking Status: Former smoker Tobacco Type: Cigarettes Age Started Using Tobacco: 16; Age Quit Using Tobacco: 39; packs per day: 5; Years Smoked: 23; Number of Years Since Quit: 39; Second Hand Exposure: No; Hx Alcohol Use: No Hx Substance Use: No Preferred Language: Chinese Communication Ability: Effective Visual Impairment: No Limitations Hearing Ability: Use of Hearing Aid Client Service Consultant Required: No Beliefs That Will Affect Care: None marital status: Current Living Situation: Spouse current occupational status: retired current occupation: retired from career [employer] for [email or web address] Feels Safe at Home: Yes Safety Concerns: Feels Safe At This Time Childhood Exposure to Second-Hand Smoke: No caffeine: No during the past year weight has: remained stable Dental Care, Regularly: Yes Physical Activity Frequency: Does not Exercise Seatbelt Use: always Sunscreen Use: No Assistive Devices: Cane and Walker Review of Systems Review of Systems: All systems reviewed & are unremarkable except as noted in HPI & below Constitutional: + weakness; no fever and no chills Gastrointestinal: + abdominal pain (left sided) and + diarrhea/loose stools; no blood in stools and no melena Physical Exam Constitutional: well developed and + morbidly obese; no acute distress Eyes: + anicteric sclerae; no corneal abnormality ENMT: Mouth: no oral mucosal abnormality and oral mucous membranes not dry Neck: normal visual inspection, trachea midline and + thick neck Respiratory: normal respiratory effort Auscultation: lungs clear to auscultation bilaterally and + rales (few at right base) Cardiovascular: Rate/Rhythm: + bradycardic and + irregularly irregular Heart Sounds: normal S1, normal S2 and + murmur Extremities: + edema Gastrointestinal (Abdomen): Inspection/Auscultation: + abdomen distended and normal bowel sounds Musculoskeletal: Extremities: no cyanosis and no clubbing Skin: normal turgor; no lesions Neurologic: Motor/Sensory: no tremor and no asterixis Psychiatric: Orientation: alert and oriented x 3 Results & Data ([facility]) Vital Signs (Past 12 Hours) Vital Signs Temp Pulse Pulse Resp BP Pulse Ox O2 Del Method 03/07/22 11:37 36.6 C 66 20 149/71 H 92 Room Air 03/07/22 08:08 36.2 C L 68 20 169/90 H 91 Room Air 03/07/22 07:21 70 03/07/22 04:00 36.9 C 68 18 149/83 H 93 Room Air Laboratory Results Laboratory Results - last 24 hr 03/06/22 03/06/22 03/06/22 16:37 18:32 18:32 WBC 8.94 RBC 4.26 L Hgb 13.2 L Hct 41.9 MCV 98.4 MCH 31.0 MCHC 31.5 L RDW Std Deviation 51.0 H RDW Coeff of Liam 14.0 Plt Count 177 MPV 11.2 Immature Gran % (Auto) 0.9 Neut % (Auto) 73.8 Lymph % (Auto) 7.4 Hitchcock % (Auto) 14.1 Eos % (Auto) 3.4 Baso % (Auto) 0.4 Neut # (Auto) 6.60 H Lymph # (Auto) 0.66 L Hitchcock # (Auto) 1.26 H Eos # (Auto) 0.30 Baso # (Auto) 0.04 Immature Gran # (Auto) 0.08 H PT 12.7 H INR 1.2 H APTT 33.5 H PTT Ratio 1.2 Sodium Potassium Chloride Carbon Dioxide Anion Gap BUN Creatinine Est Cr Clr Drug Dosing Est GFR ( Amer) Est GFR (Non-Af Amer) BUN/Creatinine Ratio Glucose POC Glucose 113 H Calcium 03/06/22 03/07/22 03/07/22 20:27 00:24 06:21 WBC 8.91 RBC 4.12 L Hgb 13.0 L Hct 39.2 L MCV 95.1 MCH 31.6 MCHC 33.2 RDW Std Deviation 48.0 H RDW Coeff of Liam 13.9 Plt Count 168 MPV 11.3 Immature Gran % (Auto) Neut % (Auto) Lymph % (Auto) Hitchcock % (Auto) Eos % (Auto) Baso % (Auto) Neut # (Auto) Lymph # (Auto) Hitchcock # (Auto) Eos # (Auto) Baso # (Auto) Immature Gran # (Auto) PT INR APTT 56.7 H* PTT Ratio 2.1 Sodium Potassium Chloride Carbon Dioxide Anion Gap BUN Creatinine Est Cr Clr Drug Dosing Est GFR ( Amer) Est GFR (Non-Af Amer) BUN/Creatinine Ratio Glucose POC Glucose 136 H Calcium 03/07/22 03/07/22 03/07/22 06:21 06:21 07:59 WBC RBC Hgb Hct MCV MCH MCHC RDW Std Deviation RDW Coeff of Liam Plt Count MPV Immature Gran % (Auto) Neut % (Auto) Lymph % (Auto) Hitchcock % (Auto) Eos % (Auto) Baso % (Auto) Neut # (Auto) Lymph # (Auto) Hitchcock # (Auto) Eos # (Auto) Baso # (Auto) Immature Gran # (Auto) PT INR APTT 62.3 H* PTT Ratio 2.3 Sodium 134 L Potassium 3.3 L Chloride 95 L Carbon Dioxide 30 Anion Gap 9 BUN 57 H Creatinine 3.37 H D Est Cr Clr Drug Dosing 22.3 Est GFR ( Amer) 18.9 Est GFR (Non-Af Amer) 16.3 BUN/Creatinine Ratio 16.9 Glucose 120 H POC Glucose 150 H Calcium 8.1 L 03/07/22 11:40 WBC RBC Hgb Hct MCV MCH MCHC RDW Std Deviation RDW Coeff of Liam Plt Count MPV Immature Gran % (Auto) Neut % (Auto) Lymph % (Auto) Hitchcock % (Auto) Eos % (Auto) Baso % (Auto) Neut # (Auto) Lymph # (Auto) Hitchcock # (Auto) Eos # (Auto) Baso # (Auto) Immature Gran # (Auto) PT INR APTT PTT Ratio Sodium Potassium Chloride Carbon Dioxide Anion Gap BUN Creatinine Est Cr Clr Drug Dosing Est GFR ( Amer) Est GFR (Non-Af Amer) BUN/Creatinine Ratio Glucose POC Glucose 115 H Calcium PG Care Time/CCT Total # of Minutes Spent Total Time Spent with Patient: Total time spent is greater than 50% in coordination of care (as documented) at patient's floor/unit and/or counseling patient: Coding Level of Care Code 62135 Inpt Consult Level 4 Diagnoses Acute kidney injury N17.9 Chronic kidney disease, stage 4 (severe) N18.4 Chronic anemia D64.9 Diabetic nephropathy associated with type 2 diabetes mellitus E11.21 Chronic combined systolic and diastolic CHF (congestive heart failure) I50.42 Chronic right-sided congestive heart failure I50.812
--- NOTE | 2022-03-07 18:50 | Hospitalist Progress Note ---
Date of Service March 07, 2022 Assessment & Plan (1) Splenic infarct: Plan: #Splenic infarct with associated L Flank pain resolved -CT ab/pelvis performed 03/04 no change from previous . -Consulted surgery -Percocet prn for pain, zofran prn for nausea -Lipase was normal, making acute pancreatitis unlikely (2) Liver mass: Plan: #Cirrhosis with Liver mass -CT also showed Cirrhosis with 7.6 cm solid L hepatic mass. AFP was ordered in the past which was normal. May consider ordering in the future to r/o hepatocellular carcinoma. -AST and ALT WNL. Alk phos slightly elevated but baseline for patient. will trend LFTs but liver etiology for patient's current condition seems unlikely. -Consult with [facility]. states normal AFP, will consider outpt workup with possible biopsy -Bilirubin elevated at 1.5 (1.4 on 02/18), patient with cholecystectomy in the past #H/o Aortic Dissection repair -Unchanged on CT (3) A-fib: Plan: metoprolol continues , pradaxa held if face of dark bowel movements stable hemaglobi, restart the pradaxa Elevated troponin -Patient is not having active CP -Troponin HS was 44.1 repeat 41 (4) Chronic kidney disease, stage 4 (severe): Plan: #FRANK with CKD III - worsening renal function have nephrology consult seems consistent with atn =will have ivf and renal us, (5) Hypertension: (6) Chronic obstructive pulmonary disease: Plan: continue albuterol and ipatropium (7) Hypothyroidism: Plan: continues on home synthroid (8) Diabetes mellitus type 2, controlled, with complications: Plan: DMII -Patient's home regimen held on admission -Continue BSG checks, sliding-scale insulin, hypoglycemic protocol -Given a bolus of insulin -POC glucose was 119 -Continue home gabapentin Plan Code status: Full code Admission and Anticipated Discharge Date Admission Date: March 04, 2022 Subjective pt has less pain and is tolerating some advancement of diet frank improving with ivf and taking po pt is infromed about liver mass and understands will have outpt work up Review of Systems Review of Systems: Mild distress and fatigue no headache, no visual changes no speech or swallowing issues no chest pain, pressure or palpitations Does have his baseline shortness of breath, but no cough or wheezes Patient evaluated for left abdominal pain initially flank pain but now lower quadrant patient has had black bowel movements no dysuria, hematuria or frequency no focal joint pain does have leg wraps and on his lower extremities where he suffers from chronic venous stasis changes no back pain, CVA tenderness or radicular pain no bruising, bleeding or rashes no focal signs of weakness or numbness or altered sensation no complaints of anxiety or depression.. Physical Exam Physical Exam: The patient appeared chronically ill but well compensated. Vital signs as documented. Head exam is normocephalic atraumatic Neck is without JVD, thyromegaly, or carotid bruits. Lungs are clear to auscultation, diminished at the bases Cardiac exam, Rhythm is regular.. No murmurs, rubs or gallops. Abdominal exam reveals normal bowel sounds, soft newness left lower quadrant without masses or hernia defect felt Extremities are swelling with chronic stasis changes and leg wraps in place Neurologic exam is alert and oriented, no focal loss of strength or sensation Psychologically is without concerns for anxiety or depression.. Results & Data Results & Data ([facility]) Vital Signs (Past 12 Hours) Vital Signs Temp Pulse Pulse Resp BP Pulse Ox O2 Del Method 03/07/22 18:38 97.9 F 67 20 143/77 H 92 Room Air 03/07/22 15:47 79 03/07/22 15:15 97.5 F L 70 20 145/79 H 95 Room Air 03/07/22 11:37 97.9 F 66 20 149/71 H 92 Room Air 03/07/22 08:08 97.2 F L 68 20 169/90 H 91 Room Air 03/07/22 07:21 70 PG Care Time/CCT Total # of Minutes Spent Total Time Spent with Patient: Total time spent is greater than 50% in coordination of care (as documented) at patient's floor/unit and/or counseling patient: Coding Level of Care Code 99513 Subseq Hosp Care Lvl 2 Diagnoses Splenic infarct D73.5 Liver mass R16.0 A-fib I48.91 Chronic kidney disease, stage 4 (severe) N18.4 Hypertension I10 Chronic obstructive pulmonary disease J44.9 Hypothyroidism E03.9 Hypothyroidism type: acquired Diabetes mellitus type 2, controlled, with complications E11.8 (1) Hypothyroidism Hypothyroidism type: acquired Qualified Code(s): E03.9 - Hypothyroidism, unspecified
[2022-03-07 20:40] LABS: BUN Creatinine Ratio 17.2 (10-20); Calcium 8.1 mg/dl (8.5-10.1); Creatinine Clr Calc Pharmacy 25.9 ml/min; Est GFR (African American) 22.6 ml/min; Est GFR (Non-African American) 19.5 ml/min; Potassium 3.5 mmol/L (3.5-5.1)
[2022-03-07] MEDS ORDERED: POTASSIUM CHLORIDE 10 MEQ TABCR PO STA (21:13)
[2022-03-07] MEDS ORDERED: LORazepam 0.5 MG TAB PO PRN (23:25)
--- NOTE | 2022-03-07 23:26 | Communication Note ---
Date of Service: March 07, 2022 Ordered home PO ativan HS prn for sleep 0.5mg at patient request. Reviewed home med list and pdmp. No renal adjustment indicated. Use w/ caution in severe liver disease. Has cirrhosis, but no transaminitis.
[2022-03-08] MEDS ORDERED: MELATONIN 3 MG TAB PO PRN (00:19)
[2022-03-08] MEDS: HEPARIN SODIUM/DEXTROSE 25,000 UNITS/500 ML BAG IV SCH ×2 (01:45→17:50)
[2022-03-08] MEDS: LEVOTHYROXINE SODIUM 75 MCG TABLET PO SCH (05:36)
[2022-03-08 06:23] LABS: Hematocrit (blood only) 39.8 % (40.1-51.0); Hemoglobin 12.7 g/dl (14.0-18.0); Mean Corpuscular Hemoglobin 31.3 pg (25.0-34.0); Mean Corpuscular Hgb Conc 31.9 g/dL (32.0-36.0); Mean Platelet Volume 11.5 fL (9.4-12.4); Platelet Count 175 K/uL (130-400); RDW Coefficient of Variation 13.8 % (11.5-14.5); RDW Standard Deviation 50.4 fL (36.4-46.3); Red Blood Count 4.06 M/uL (4.63-6.08); White Blood Count 8.14 K/ul (4.8-10.8)
[2022-03-08 06:45] LABS: Calcium 8.3 mg/dl (8.5-10.1); Creatinine Clr Calc Pharmacy 29.3 ml/min; Est GFR (African American) 26.3 ml/min; Est GFR (Non-African American) 22.7 ml/min; Potassium 3.2 mmol/L (3.5-5.1)
[2022-03-08 06:53] LABS: Partial Thromboplastin Ratio 1.8
[2022-03-08 07:00] LABS: Partial Thromboplastin Time 49.6 Seconds (21.0-31.0)
[2022-03-08] MEDS: INSULIN ASPART PER UNIT SC SCH ×4 (07:47→21:19)
[2022-03-08] MEDS: LANTUS PER UNIT CHARGE SQ SCH ×2 (07:48→21:19)
[2022-03-08] MEDS: METOPROLOL SUCC 50MG EXT REL TAB PO SCH (07:55)
[2022-03-08] MEDS: GABAPENTIN 100 MG CAP PO SCH ×2 (07:56→21:05)
[2022-03-08] MEDS: allopurinoL 100 MG TAB PO SCH (07:56)
[2022-03-08] MEDS: ISOSORBIDE MONO EXTENDED REL 60 MG TABCR PO SCH (07:56)
[2022-03-08] MEDS ORDERED: MAGNESIUM SULFATE / D5W 1 GM/100 ML BAG IV ONE (08:05)
[2022-03-08] MEDS ORDERED: POTASSIUM CHLORIDE 10 MEQ / 100ML WTR IV STA (08:05)
[2022-03-08] MEDS: POTASSIUM CHLORIDE / WTR 10 MEQ/100 ML PLCT IV SCH ×3 (10:00→13:39)
--- NOTE | 2022-03-08 10:54 | Nephrology Progress Note ---
Date of Service March 08, 2022 Assessment & Plan (1) Acute kidney injury: Plan: Clinically consistent with ATN. Creatinine improving with intravascular volume expansion. Volume status acceptable. Non-oliguric. Electrolytes acceptable. No current indication for PNEUMATIC SYSTEM CONVEYOR OPERATOR. No obstruction on imaging. Urine acellular. Diuretics held. mIVF stopped. Goal is to maintain even to slightly positive fluid balance. Repeat metabolic profile tomorrow AM. Renal diet. Medications appropriately dosed for kidney dysfunction. (2) Chronic kidney disease, stage 4 (severe): Plan: Baseline creatinine 1.8-2.5 mg/dL. Followed by Dr. Zavaleta. CKD attributed to DKD and CRS. (3) Chronic anemia: Plan: Chronic, stable. No need for ADRIAN therapy. Will monitor. (4) Diabetic nephropathy associated with type 2 diabetes mellitus: Plan: No ROSIBEL/ARB due to history of FRANK. (5) Chronic combined systolic and diastolic CHF (congestive heart failure): Plan: Volume status acceptable. Diuretics held. Goal is to maintain even or slightly positive fluid balance. (6) Chronic right-sided congestive heart failure: Admission and Anticipated Discharge Date Admission Date: March 04, 2022 Subjective No acute events overnight. No complaints this morning. Breathing comfortable. Experienced some burning with IV potassium replacement. Appetite is good. Reports some increased edema in lower extremities. Review of Systems Review of Systems: All systems reviewed & are unremarkable except as noted in HPI & below Physical Exam Constitutional: well developed and + morbidly obese; no acute distress Eyes: + anicteric sclerae; no corneal abnormality ENMT: Mouth: no oral mucosal abnormality and oral mucous membranes not dry Neck: normal visual inspection, trachea midline and + thick neck Respiratory: normal respiratory effort Auscultation: lungs clear to auscultation bilaterally and + rales (few at right base) Cardiovascular: Rate/Rhythm: + irregularly irregular Heart Sounds: normal S1, normal S2 and + murmur Extremities: + edema Gastrointestinal (Abdomen): Inspection/Auscultation: + abdomen distended and normal bowel sounds Musculoskeletal: Extremities: no cyanosis and no clubbing Skin: normal turgor; no lesions Neurologic: Motor/Sensory: no tremor and no asterixis Psychiatric: Orientation: alert and oriented x 3 Results & Data ([facility]) Vital Signs (Past 12 Hours) Vital Signs Temp Pulse Resp BP Pulse Ox O2 Del Method 03/08/22 07:39 36.8 C 70 18 157/86 H 93 03/08/22 07:12 Room Air 03/08/22 05:46 70 116/86 91 Room Air 03/07/22 22:59 Room Air 03/07/22 22:53 36.6 C 82 18 172/92 H 91 Room Air Laboratory Results Laboratory Results - last 24 hr 03/07/22 03/07/22 03/07/22 11:40 16:44 20:08 WBC RBC Hgb Hct MCV MCH MCHC RDW Std Deviation RDW Coeff of Liam Plt Count MPV APTT PTT Ratio Sodium 133 L Potassium 3.5 Chloride 94 L Carbon Dioxide 33 H Anion Gap 6 BUN 50 H Creatinine 2.90 H D Est Cr Clr Drug Dosing 25.9 Est GFR ( Amer) 22.6 Est GFR (Non-Af Amer) 19.5 BUN/Creatinine Ratio 17.2 Glucose 118 H POC Glucose 115 H 101 H Calcium 8.1 L 03/07/22 03/08/22 03/08/22 20:49 05:28 05:28 WBC 8.14 RBC 4.06 L Hgb 12.7 L Hct 39.8 L MCV 98.0 MCH 31.3 MCHC 31.9 L RDW Std Deviation 50.4 H RDW Coeff of Liam 13.8 Plt Count 175 MPV 11.5 APTT 49.6 H* PTT Ratio 1.8 Sodium Potassium Chloride Carbon Dioxide Anion Gap BUN Creatinine Est Cr Clr Drug Dosing Est GFR ( Amer) Est GFR (Non-Af Amer) BUN/Creatinine Ratio Glucose POC Glucose 108 H Calcium 03/08/22 03/08/22 05:28 07:32 WBC RBC Hgb Hct MCV MCH MCHC RDW Std Deviation RDW Coeff of Liam Plt Count MPV APTT PTT Ratio Sodium 136 Potassium 3.2 L Chloride 97 L Carbon Dioxide 33 H Anion Gap 6 BUN 46 H Creatinine 2.56 H D Est Cr Clr Drug Dosing 29.3 Est GFR ( Amer) 26.3 Est GFR (Non-Af Amer) 22.7 BUN/Creatinine Ratio 18.0 Glucose 117 H POC Glucose 125 H Calcium 8.3 L PG Care Time/CCT Total # of Minutes Spent Total Time Spent with Patient: Total time spent is greater than 50% in coordination of care (as documented) at patient's floor/unit and/or counseling patient: Coding Level of Care Code 78570 Subseq Hosp Care Lvl 3 Diagnoses Acute kidney injury N17.9 Chronic kidney disease, stage 4 (severe) N18.4 Chronic anemia D64.9 Diabetic nephropathy associated with type 2 diabetes mellitus E11.21 Chronic combined systolic and diastolic CHF (congestive heart failure) I50.42 Chronic right-sided congestive heart failure I50.812
--- NOTE | 2022-03-08 11:14 | Surgery Progress Note ---
Date of Service March 08, 2022 Assessment & Plan (1) Splenic infarct: Plan: No changes from our perspective. Liver mass work-up in progress. Admission and Anticipated Discharge Date Admission Date: March 04, 2022 Subjective Patient seen. Feeling well overall. Still some mild left upper quadrant tenderness but nothing new. He is tolerating diet. No new complaints. Physical Exam Physical Exam: Alert. No acute distress Abdomen is soft. Obese. Mild left upper quadrant tenderness. No guarding. Results & Data ([facility]) Vital Signs (Past 12 Hours) Vital Signs Temp Pulse Resp BP Pulse Ox O2 Del Method 03/08/22 07:39 36.8 C 70 18 157/86 H 93 03/08/22 07:12 Room Air 03/08/22 05:46 70 116/86 91 Room Air PG Care Time/CCT Total # of Minutes Spent Total Time Spent with Patient: Total time spent is greater than 50% in coordination of care (as documented) at patient's floor/unit and/or counseling patient: Coding Level of Care Code 12779 Subseq Hosp Care Lvl 2 Diagnoses Splenic infarct D73.5
--- NOTE | 2022-03-08 15:51 | Hospitalist Progress Note ---
Date of Service March 08, 2022 Assessment & Plan (1) Splenic infarct: Plan: #Splenic infarct with associated L Flank pain resolved -CT ab/pelvis performed 03/04 no change from previous . -Consulted surgery no need for intervention -Percocet prn for pain, zofran prn for nausea -Lipase was normal, making acute pancreatitis unlikely (2) Liver mass: Plan: #Cirrhosis with Liver mass -CT also showed Cirrhosis with 7.6 cm solid L hepatic mass. AFP was ordered in the past which was normal. May consider ordering in the future to r/o hepatocellular carcinoma. -AST and ALT WNL. Alk phos slightly elevated but baseline for patient. will trend LFTs but liver etiology for patient's current condition seems unlikely. -Consult with [facility]. states normal AFP, will consider outpt workup with possible biopsy -Bilirubin elevated at 1.5 (1.4 on 02/18), patient with cholecystectomy in the past #H/o Aortic Dissection repair -Unchanged on CT (3) A-fib: Plan: metoprolol continues , pradaxa held if face of dark bowel movements stable hemaglobi, restart the pradaxa once renal function improves anticipate 03/09/22 Elevated troponin -Patient is not having active CP -Troponin HS was 44.1 repeat 41 (4) Chronic kidney disease, stage 4 (severe): Plan: #FRANK with CKD III,non aliguric renal failure - improving renal function have nephrology consult seems consistent with atn =will have ivf and renal us no acute abnormality, (5) Hypertension: (6) Chronic obstructive pulmonary disease: Plan: continue albuterol and ipatropium (7) Hypothyroidism: Plan: continues on home synthroid (8) Diabetes mellitus type 2, controlled, with complications: Plan: DMII -Patient's home regimen held on admission -Continue BSG checks, sliding-scale insulin, hypoglycemic protocol -Given a bolus of insulin -POC glucose was 119 -Continue home gabapentin Plan Code status: Full code Admission and Anticipated Discharge Date Admission Date: March 04, 2022 Subjective Patient seen. Improving. resolved upper quadrant tenderness. He is tolerating diet. No new complaints. Review of Systems Review of Systems: Mild distress and fatigue no headache, no visual changes no speech or swallowing issues no chest pain, pressure or palpitations Does have his baseline shortness of breath, but no cough or wheezes Patient evaluated for left abdominal pain initially flank pain but now lower quadrant patient has had black bowel movements no dysuria, hematuria or frequency no focal joint pain does have leg wraps and on his lower extremities where he suffers from chronic venous stasis changes no back pain, CVA tenderness or radicular pain no bruising, bleeding or rashes no focal signs of weakness or numbness or altered sensation no complaints of anxiety or depression.. Physical Exam Physical Exam: The patient appeared chronically ill but well compensated. Vital signs as documented. Head exam is normocephalic atraumatic Neck is without JVD, thyromegaly, or carotid bruits. Lungs are clear to auscultation, diminished at the bases Cardiac exam, Rhythm is regular.. No murmurs, rubs or gallops. Abdominal exam reveals normal bowel sounds, soft newness left lower quadrant without masses or hernia defect felt Extremities are swelling with chronic stasis changes and leg wraps in place Neurologic exam is alert and oriented, no focal loss of strength or sensation Psychologically is without concerns for anxiety or depression.. Results & Data Results & Data ([facility]) Vital Signs (Past 12 Hours) Vital Signs Temp Pulse Resp BP Pulse Ox O2 Del Method 03/08/22 07:39 98.2 F 70 18 157/86 H 93 03/08/22 07:12 Room Air 03/08/22 05:46 70 116/86 91 Room Air PG Care Time/CCT Total # of Minutes Spent Total Time Spent with Patient: Total time spent is greater than 50% in coordination of care (as documented) at patient's floor/unit and/or counseling patient: Coding Level of Care Code 67426 Subseq Hosp Care Lvl 2 Diagnoses Splenic infarct D73.5 Liver mass R16.0 A-fib I48.91 Chronic kidney disease, stage 4 (severe) N18.4 Hypertension I10 Chronic obstructive pulmonary disease J44.9 Hypothyroidism E03.9 Hypothyroidism type: acquired Diabetes mellitus type 2, controlled, with complications E11.8 (1) Hypothyroidism Hypothyroidism type: acquired Qualified Code(s): E03.9 - Hypothyroidism, unspecified
[2022-03-08] MEDS: oxyCODONE/ACETAMINOPHEN 5mg/325mg TAB PO PRN (21:21)
[2022-03-09] MEDS: oxyCODONE/ACETAMINOPHEN 5mg/325mg TAB PO PRN (01:58)
[2022-03-09] MEDS: LEVOTHYROXINE SODIUM 50 MCG TABLET PO SCH (06:20)
[2022-03-09] MEDS: GABAPENTIN 100 MG CAP PO SCH (07:24)
[2022-03-09] MEDS: ISOSORBIDE MONO EXTENDED REL 60 MG TABCR PO SCH (07:24)
[2022-03-09] MEDS: allopurinoL 100 MG TAB PO SCH (07:25)
[2022-03-09] MEDS: METOPROLOL SUCC 50MG EXT REL TAB PO SCH (07:25)
[2022-03-09 07:36] LABS: Hematocrit (blood only) 40.4 % (40.1-51.0); Hemoglobin 12.7 g/dl (14.0-18.0); Mean Corpuscular Hemoglobin 31.1 pg (25.0-34.0); Mean Corpuscular Hgb Conc 31.4 g/dL (32.0-36.0); Mean Platelet Volume 11.1 fL (9.4-12.4); Platelet Count 210 K/uL (130-400); RDW Standard Deviation 50.5 fL (36.4-46.3); Red Blood Count 4.08 M/uL (4.63-6.08); White Blood Count 7.86 K/ul (4.8-10.8)
[2022-03-09 07:56] LABS: BUN Creatinine Ratio 17.6 (10-20); Calcium 8.5 mg/dl (8.5-10.1); Creatinine Clr Calc Pharmacy 36.8 ml/min; Est GFR (African American) 34.6 ml/min; Est GFR (Non-African American) 29.9 ml/min; Potassium 3.5 mmol/L (3.5-5.1)
[2022-03-09 08:03] LABS: Partial Thromboplastin Ratio 1.8
[2022-03-09 08:07] LABS: Partial Thromboplastin Time 50.2 Seconds (21.0-31.0)
[2022-03-09] MEDS: INSULIN ASPART PER UNIT SC SCH ×2 (08:07→12:09)
[2022-03-09] MEDS: LANTUS PER UNIT CHARGE SQ SCH (08:08)
--- NOTE | 2022-03-09 08:27 | Surgery Progress Note ---
Date of Service March 09, 2022 Assessment & Plan (1) Splenic infarct: Plan: seen with Dr. Irizarry abdomen benign H&H stable, creatine improved will sign off Admission and Anticipated Discharge Date Admission Date: March 04, 2022 Subjective minimal pain, tolerating diet, passing flatus but no BM yet Physical Exam Gastrointestinal (Abdomen): Inspection/Auscultation: abdomen not distended Percussion/Palpation: + abdomen tender (minimal LUQ) and abdomen soft Results & Data ([facility]) Vital Signs (Past 12 Hours) Vital Signs Temp Pulse Pulse Resp BP Pulse Ox O2 Del Method 03/09/22 07:18 36.4 C L 70 18 170/76 H 90 Room Air 03/09/22 07:07 Room Air 03/09/22 01:06 Room Air 03/08/22 22:17 73 PG Care Time/CCT Total # of Minutes Spent Total Time Spent with Patient: Total time spent is greater than 50% in coordination of care (as documented) at patient's floor/unit and/or counseling patient: Coding Level of Care Code 67122 Subseq Hosp Care Lvl 1 Diagnoses Splenic infarct D73.5
[2022-03-09] MEDS ORDERED: POTASSIUM CHLORIDE 10 MEQ TABCR PO STA (08:48)
--- NOTE | 2022-03-09 08:57 | Nephrology Progress Note ---
Date of Service March 09, 2022 Assessment & Plan (1) Acute kidney injury: Plan: Clinically consistent with ATN. Creatinine improving. Electrolytes acceptable. No current indication for SEVERITY OF ILLNESS COORDINATOR. Will restart torsemide at a reduced dose this AM. I've ordered 40 mg this AM. Oral KCl has also been ordered 20 mEq BID. Document I/O's and AM weight. Repeat metabolic profile with magnesium in the AM. No obstruction on imaging. Urine acellular. Plan of care discussed with Dr. Brenner this AM. (2) Chronic kidney disease, stage 4 (severe): Plan: Baseline creatinine 1.8-2.5 mg/dL. Followed by Dr. Zavaleta. CKD attributed to DKD and CRS. (3) Chronic anemia: Plan: Chronic, stable. No need for ADRIAN therapy. Will monitor. (4) Diabetic nephropathy associated with type 2 diabetes mellitus: Plan: No ROSIBEL/ARB due to history of FRANK. (5) Chronic combined systolic and diastolic CHF (congestive heart failure): Plan: Volume status acceptable. Diuretics held. Goal is to maintain even or slightly negative fluid balance. (6) Chronic right-sided congestive heart failure: Plan: Restart reduced dose torsemide and KCl this AM. Admission and Anticipated Discharge Date Admission Date: March 04, 2022 Subjective No acute events overnight. Bryn feels well this AM. Reports some difficulty moving his bowels this AM. He describes a very small amount of pain in the lower left quadrant. No blood in stool. No fevers or chills. Breathing comfortably. Some increased edema in his legs noted. Bryn also admits that he is wheezing slightly. He states that he would typically take Combivent for the symptoms at home. Review of Systems Review of Systems: All systems reviewed & are unremarkable except as noted in HPI & below Physical Exam Constitutional: well developed and + morbidly obese; no acute distress Eyes: + anicteric sclerae; no corneal abnormality ENMT: Mouth: no oral mucosal abnormality and oral mucous membranes not dry Neck: normal visual inspection, trachea midline and + thick neck Respiratory: normal respiratory effort Auscultation: lungs clear to auscultation bilaterally and + wheezes (upper lobe) Cardiovascular: Rate/Rhythm: + bradycardic and + irregularly irregular Heart Sounds: normal S1, normal S2 and + murmur Extremities: + edema Gastrointestinal (Abdomen): Inspection/Auscultation: + abdomen distended and normal bowel sounds Musculoskeletal: Extremities: no cyanosis and no clubbing Skin: normal turgor; no lesions Neurologic: Motor/Sensory: no tremor and no asterixis Psychiatric: Orientation: alert and oriented x 3 Results & Data ([facility]) Vital Signs (Past 12 Hours) Vital Signs Temp Pulse Pulse Resp BP Pulse Ox O2 Del Method 03/09/22 07:18 36.4 C L 70 18 170/76 H 90 Room Air 03/09/22 07:07 Room Air 03/09/22 01:06 Room Air 03/08/22 22:17 73 Laboratory Results Laboratory Results - last 24 hr 03/08/22 03/08/22 03/08/22 11:32 16:42 21:11 WBC RBC Hgb Hct MCV MCH MCHC RDW Std Deviation RDW Coeff of Liam Plt Count MPV APTT PTT Ratio Sodium Potassium Chloride Carbon Dioxide Anion Gap BUN Creatinine Est Cr Clr Drug Dosing Est GFR ( Amer) Est GFR (Non-Af Amer) BUN/Creatinine Ratio Glucose POC Glucose 113 H 112 H 101 H Calcium 03/09/22 03/09/22 03/09/22 06:48 06:48 06:48 WBC 7.86 RBC 4.08 L Hgb 12.7 L Hct 40.4 MCV 99.0 MCH 31.1 MCHC 31.4 L RDW Std Deviation 50.5 H RDW Coeff of Liam 14.0 Plt Count 210 MPV 11.1 APTT 50.2 H* PTT Ratio 1.8 Sodium 138 Potassium 3.5 Chloride 100 Carbon Dioxide 33 H Anion Gap 5 BUN 36 H Creatinine 2.04 H D Est Cr Clr Drug Dosing 36.8 Est GFR ( Amer) 34.6 Est GFR (Non-Af Amer) 29.9 BUN/Creatinine Ratio 17.6 Glucose 99 POC Glucose Calcium 8.5 03/09/22 07:29 WBC RBC Hgb Hct MCV MCH MCHC RDW Std Deviation RDW Coeff of Liam Plt Count MPV APTT PTT Ratio Sodium Potassium Chloride Carbon Dioxide Anion Gap BUN Creatinine Est Cr Clr Drug Dosing Est GFR ( Amer) Est GFR (Non-Af Amer) BUN/Creatinine Ratio Glucose POC Glucose 102 H Calcium PG Care Time/CCT Total # of Minutes Spent Total Time Spent with Patient: Total time spent is greater than 50% in coordination of care (as documented) at patient's floor/unit and/or counseling patient: Coding Level of Care Code 15804 Subseq Hosp Care Lvl 3 Diagnoses Acute kidney injury N17.9 Chronic kidney disease, stage 4 (severe) N18.4 Chronic anemia D64.9 Diabetic nephropathy associated with type 2 diabetes mellitus E11.21 Chronic combined systolic and diastolic CHF (congestive heart failure) I50.42 Chronic right-sided congestive heart failure I50.812
[2022-03-09] MEDS ORDERED: TORSEMIDE 10 MG TAB PO SCH (09:00)
[2022-03-09] MEDS ORDERED: POTASSIUM CHLORIDE CRTAB 20 MEQ TABCR PO SCH (09:00)
[2022-03-09] MEDS ORDERED: DABIGATRAN ETEXILATE 75 MG CAP PO SCH (10:00)
[2022-03-09] MEDS: HEPARIN SODIUM/DEXTROSE 25,000 UNITS/500 ML BAG IV SCH (10:26)
[2022-03-09 14:45] VITALS: BP 156/80; PULSE 71; TEMP 97.9; O2SAT 90
--- NOTE | 2022-03-09 17:57 | Discharge Summary ---
Date of Service March 09, 2022 Admission HPI Per Admitting Provider The patient is an 81-year-old male with an extensive PMHx (see below) who presented to the emergency department for an evaluation of L sided flank pain. Patient was recently hospitalized following GI bleed secondary to microperforation of rectum following enema from 02/16-02/19. Patient saw Dr. Irizarry for f/u on his rectal injury on 03/03 and while at this visit complained about L flank pain. Patient then got a CT on 03/03, which showed a splenic infarct on CT. Dr. Irizarry was made aware and no surgical indication was needed at that time unless discomfort or pain got worse. Patient stated that the pain got worse around 5pm today and then the wound nurse called and told him to go to the ED. Pain is worse while ambulation and gets better when he is resting. Patient reports that yesterday when he saw Dr. Irizarry that his pain was a 4/10 and now is a 8/10. Patient also states that he has been having black diarrhea since yesterday that occurs every hour. He was recently restarted on a blood thinner. He states that he did have 3 episodes of vomiting yesterday and felt very sweaty at the time but now has no more N/V. Patient denies any fevers, chills, or CP. Principal Diagnosis splenic infarction acute kidney injury resolved chronic HFpef liver mass identified but not diagnosed yet Discharge Exam PT is chronically ill, has chronic le edema, had tubigrip wraps replaced prior to going home cardiac is regular with ANNA lungs are clear Discharge Data Allergies Allergy/AdvReac Type Severity Reaction Status Date / Time morphine Allergy Intermediate DELUSIONS, Verified 03/04/22 07:58 "LOSES TIME" adhesive Allergy Mild RASH Verified 03/04/22 07:58 latex AdvReac Intermediate BLISTERS Verified 03/04/22 07:58 SKIN Consultations 03/04/22 21:33 ED Decision to Admit Stat 03/04/22 22:24 Consult General Surgery Routine 03/05/22 12:52 Consult Gastroenterology Routine 03/06/22 18:10 Consult Nephrology Routine Ordered Studies 03/04/22 19:56 CT abd pelvis wo con Stat 03/07/22 18:10 US renal/blad retro comp Routine Hospital Course (1) Splenic infarct: #Splenic infarct with associated L Flank pain resolved -CT ab/pelvis performed 03/04 no change from previous . -Consulted surgery no need for intervention -Lipase was normal, making acute pancreatitis unlikely pt did have pradaxa dose reduced wtih renal function, his renal funciton is hovering with a GFR around 30, he may have had an embolic event, had some improvement in his renal function and will be d/c on pradaxa 150mg bid with close follow up in CHF clinic (2) Liver mass: #Cirrhosis with Liver mass -CT also showed Cirrhosis with 7.6 cm solid L hepatic mass. AFP was ordered in the past which was normal. May consider ordering in the future to r/o hepatocellular carcinoma. will need to coordinate time off anticoagulation if biospy is needed -AST and ALT WNL. Alk phos slightly elevated but baseline for patient. will trend LFTs but liver etiology for patient's current condition seems unlikely. -Consult with [facility]. states normal AFP, will consider outpt workup with possible biopsy -Bilirubin elevated at 1.5 (1.4 on 02/18), patient with cholecystectomy in the past #H/o Aortic Dissection repair -Unchanged on CT (3) A-fib: metoprolol continues , stable hemaglobn, restart the pradaxa 150 mg bid Elevated troponin do not suspect nstemi or demand, elevated probably from renal failure -Patient is not having active CP -Troponin HS was 44.1 repeat 41 (4) Chronic kidney disease, stage 4 (severe): #FRANK with CKD III,non aliguric renal failure presents with acute tubular necrosis. - improving renal function have nephrology consult seems consistent with atn home on reduced dose torsemide, with heart failure clinic follow up (5) Hypertension: (6) Chronic obstructive pulmonary disease: continue albuterol and ipatropium (7) Hypothyroidism: continues on home synthroid (8) Diabetes mellitus type 2, controlled, with complications: DMII -Patient's home regimen held on admission -Continue BSG checks, sliding-scale insulin, hypoglycemic protocol -Given a bolus of insulin -POC glucose was 119 -Continue home gabapentin Plan Code status: Full code Total Time Total Time Spent Total Time Spent (In Minutes): It required greater than 30 minutes to prepare this patient for discharge Discharge Plan Discharge Items Patient Disposition: Home - Self-Care Reason For Visit: L FLANK PAIN Discharge Diagnosis: spleen injury(small) acute kidney failure resolved mass seen in liver will require future work up Activity: Resume your previous activity Non-emergency contact: Primary Care Provider Call non-emergency contact if: you have any medication questions Follow-up/Referrals: Candida Andrea CRNP [Primary Care Provider] - Blanca Aguirre PA-C [Physician Automatic Gluing Machine Operator] - 03/17/22 3:30 pm Diet: Carb Consistent or DM2 Ambulatory Orders: Basic Metabolic Panel (Routine) Timeframe: 2 Days Location: Determined by Patient Ordered By: Khris Pereira Attending Provider Instructions: please continue to follow your transformer coil winder instructions Call 911 and go to the Emergency Room if: * You have tightness or pain in your chest that does not go away with rest or Nitroglycerin * You are very short of breath even with rest Call your doctor if any of the following symptoms or problems start or get worse: * Shortness of breath or difficulty breathing * Wake up at night short of breath * Chest pain * Cough * Swelling of your hands, fee, or legs * More fatigued or tired with your normal activity * Palpitations - sudden fast heart beats WEIGHT * Weigh yourself every morning after using the bathroom. * Use the same scale. * Wear the same amount of clothing. * Write your weight down on your chart. * Call your doctor if you gain more than 2-3 pounds in 1-2 days. MEDICATIONS * Use this discharge instruction sheet for instructions. * Take your medications at the time your doctor ordered. * Do not skip a dose of your medicines. * If you miss a dose of medicine, take as soon as possible, but DO NOT DOUBLE A DOSE. * Read your medicine information when you get home. * Know all of the side effects of your medicine. * Call your doctor's office if you have any side effects. * Be sure all of your doctors know what medicine and herbs you take (including cold, flu, and herbal medicine). * Pain Medicine: If you do not get relief from your pain, please call your doctor for help. Take the following with you to your follow-up doctor appointments: * Weight Chart * Medication List * List of questions Do not drink excessive alcohol, beer or wine. [facility] Technician Provider Instructions: we have increased your blood thinner to 2 pills twice a day we have reduced your water pill to one pill each morning discuss with Blanca aguirre and Dr Wolf about referral for eval of your liver as we discussed the abnormality seen on CT scan Pending Studies at Discharge: No Stand-Alone Forms: [facility], Smoking Cessation Medications and DC Order Prescriptions: New dabigatran etexilate [Pradaxa] 75 mg Capsule 150 mg PO BID Qty: 120 3RF Continued cholecalciferol (vitamin D3) 2,000 unit capsule 2,000 unit PO DAILY Qty: 0 Label Comments: TAKE WITH THE MAIN MEAL OF THE DAY. Rx Instructions: TAKE WITH MAIN MEAL OF THE DAY metoprolol succinate 200 mg tablet extended release 24 hr 200 mg PO QAM Qty: 90 1RF (DME) pen needle, diabetic [BD Ultra-Fine Mini Pen Needle] 31 gauge x 3/16" needle See Dose Instructions .ROUTE .MEDSUPPLY Qty: 100 3RF Rx Instructions: Use with insulin BID (DME) One Touch Ava Meter Kit See Rx Instructions .Route .MEDSUPPLY Qty: 1 0RF Rx Instructions: Glucometer .test BID; (DME) lancets [OneTouch Delica Lancets] 33 gauge misc See Dose Instructions .ROUTE .MEDSUPPLY Qty: 100 3RF Rx Instructions: As directed (DME) OneTouch Verio test strips Strip See Dose Instructions .ROUTE .MEDSUPPLY Qty: 100 5RF Rx Instructions: test BID allopurinol 300 mg tablet 300 mg PO QAM Qty: 90 3RF levothyroxine 75 mcg tablet 75 mcg PO .COMPLEX Qty: 45 3RF Rx Instructions: 75 mcg PO every other day, rotating with 50mcg tabs; levothyroxine 50 mcg tablet 50 mcg PO .COMPLEX Qty: 45 3RF Rx Instructions: 50 mcg PO every other day, rotating with 75mcg tabs; isosorbide mononitrate 120 mg tablet extended release 24 hr 120 mg PO QAM Qty: 90 3RF lorazepam [Ativan] 0.5 mg tablet 0.5 mg PO DAILY PRN (Reason: Sleep) Qty: 30 0RF insulin asp prt-insulin aspart 100 unit/mL (70-30) insulin pen 15 unit subcut AMPM multivitamin [Daily Multi-Vitamin] tablet 1 tab PO DAILY Combivent Respimat 20-100 mcg/actuation mist 2 puff INHALATION Q6H PRN (Reason: sob/wheezing) Qty: 4 5RF gabapentin 100 mg capsule 100 mg PO AMPM Changed torsemide 20 mg tablet 40 mg PO DAILY Qty: 720 1RF Discontinued potassium chloride 20 mEq tablet extended release 60 meq PO BID Qty: 540 3RF metolazone 5 mg tablet 5 mg PO DAILY PRN (Reason: .weight gain of 3 lbs) dabigatran etexilate [Pradaxa] 75 mg capsule 75 mg PO BID Discharge Orders: Discharge Order (Routine); Ordered 03/09/22 Ordered By: Khris Brenner Admission Data Admit Date/Time: 03/04/22 22:24 Attending Provider: Khris Brenner Admit Provider: Jonathan Dick Primary Care Provider: Candida Andrea Other Providers: Sondra Coon ; Devon Irizarry ; Akil Felipe ; Caro Wilson Other Interventions: Discharge Summary Assessment (RN) Last Done: 03/09/22 16:10 Coding Level of Care Code D/C DAY MANAGEMENT >30 MINS Diagnoses Splenic infarct D73.5 Liver mass R16.0 A-fib I48.91 Chronic kidney disease, stage 4 (severe) N18.4 Hypertension I10 Chronic obstructive pulmonary disease J44.9 Hypothyroidism E03.9 Hypothyroidism type: acquired Diabetes mellitus type 2, controlled, with complications E11.8
== END 2022-03-09 17:06 | disposition home or self-care (01) | DRG 814 ==
LOC: ED 17:25 → SUATTDRO 22:24 → EDINP 22:24 → 2W 23:57

== ENCOUNTER 2022-04-08 08:51 | Inpatient (IN) ==
--- NOTE | 2022-04-08 09:37 | Emergency Department Note ---
Impression & Plan Pulmonary edema, Elevated troponin I level ED Provider Note NAME: JAMEEL BARCENAS AGE: 81 SEX: M : 1940 ARRIVES VIA: Walk-In INFORMANT: Patient, the patient's significant other ED PROVIDER(S): Jordan Pena DO CHIEF COMPLAINT: Difficulty breathing the patient is an 81-year-old HPI: The patient is an 81-year-old male who presented to the emergency department for an evaluation of difficulty breathing. The patient states he is having trouble lying flat and having severe shortness of breath especially with lying flat. He notices swelling in his legs as well. Patient notices that he is vision is not as good as it used to be. The patient is scheduled for a follow-up appointment with an eye doctor because of his decreased vision. He denies having any chest pain. He denies having any abdominal pain or vomiting. He has had no black or bloody bowel moods. He states the symptoms are worsened with any exertion as well as lying flat. The patient states that he has been compliant with all his outpatient medications and has had no changes to his medications. ROS: See above HPI for pertinent positives & negatives. A total of 10 systems reviewed and were otherwise negative. PAST MEDICAL HISTORY: See Below PAST SURGICAL HISTORY: See Below FAMILY HISTORY: See Below SOCIAL HISTORY: See Below HOME MEDICATIONS: See Below ALLERGIES: See Below VITALS: See Below PHYSICAL EXAMINATION: GENERAL: Patient is awake alert in no acute distress patient is resting comfortably and showing no signs of anxiety EYES: The conjunctivae are clear. The pupils are round and reactive. EARS, NOSE, MOUTH AND THROAT: The nose is without any evidence of any deformity. NECK: The neck is nontender and supple. RESPIRATORY: Sounds are noted at both bases. There is tachypnea as well as conversational dyspnea. CARDIOVASCULAR: Tachycardic and irregular heart sounds were noted to auscultation. There is no definite murmur. GASTROINTESTINAL: The abdomen is soft. Abdomen is nontender. MUSCULOSKELETAL/EXTREMITIES: There is no evidence of gross deformity full range of motion is noted in the hips and shoulders. SKIN: Pedal edema was noted bilaterally. NEUROLOGIC: Patient is awake alert and oriented x3 MEDICAL DECISION MAKING: -year-old male who presented to the emergency department for an evaluation of difficulty breathing. The patient's history and physical exam appear to be consistent with pulmonary edema. The patient was treated with IV Lasix in the emergency department. I discussed the patient's laboratory and radiographic studies with him. He was found to have an elevation in his troponin which could explain the patient's new pulmonary edema. The patient was feeling somewhat improved on reevaluation but he had no urine output at this time. I discussed his condition with the on-call [facility] hospitalist group. They have agree d to evaluate the patient in the emergency department for further management and disposition. The patient also complained of difficulty with his vision. Given his history a CT was obtained to ensure this was not a central nervous system cause. Triage Nursing notes reviewed. Prior medical records reviewed Vital Signs: reviewed and remarkable for elevated blood pressure and tachypnea. Differential diagnosis: Reactive airway disease, pneumonia, pneumothorax, COPD, CHF, infections, cardiac ischemia, pulmonary embolism, musculoskeletal, gastrointestinal, as well as other pathologies. ER treatment provided: See below Diagnostics interpreted by me: ECG: EKG was obtained in the emergency department. My interpretation is atrial fibrillation at 91 bpm. No PVCs were noted. Nonspecific ST segment abnormalities noted. This was compared to a tracing from February 16, 2022. No c hanges were noted. Cardiac Monitoring: An order was placed for continuous cardiac monitoring. The monitor shows a rate of 83 bpm with atrial fibrillation. Laboratory studies: As stated above and show below. Imaging studies: See below Consultation(s): I discussed this case with Nori who is on for the [facility] hospitalist group. 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 YEAR 10 YEARS AGO History of bronchoscopy History of cardiac cath NO STENTS History of cataract surgery rt/left History of colonoscopy History of ear surgery LEFT MASTOIDECTOMY (DEAF IN LEFT EAR) History of tonsillectomy History of tooth extraction History of total knee replacement RT S/P cholecystectomy Family History Son Colon cancer Coronary heart disease Sister Hypothyroidism Lymphoma Stroke Mother Aortic aneurysm Diabetes Father Heart disease Myocardial infarction Sister Liver problem Other Hypertension Denies family history of Ovarian cancer Prostate cancer Breast cancer Social History Smoking Status: Former smoker Tobacco Type: Cigarettes Age Started Using Tobacco: 16; Age Quit Using Tobacco: 39; packs per day: 5; Years Smoked: 23; Number of Years Since Quit: 39; Second Hand Exposure: No; Hx Alcohol Use: No Hx Substance Use: No Preferred Language: Mongolian Communication Ability: Effective Visual Impairment: No Limitations Hearing Ability: Use of Hearing Aid Criminology Professor Required: No Beliefs That Will Affect Care: None marital status: Current Living Situation: Spouse current occupational status: retired current occupation: retired from career [employer] for [employer] Feels Safe at Home: Yes Childhood Exposure to Second-Hand Smoke: No caffeine: No during the past year weight has: remained stable Dental Care, Regularly: Yes Physical Activity Frequency: Does not Exercise Seatbelt Use: always Sunscreen Use: No Assistive Devices: Cane and Walker Allergies Allergies Allergy/AdvReac Type Severity Reaction Status Date / Time morphine Allergy Intermediate DELUSIONS, Verified 04/03/22 15:53 "LOSES TIME" adhesive Allergy Mild RASH Verified 04/03/22 15:53 latex AdvReac Intermediate BLISTERS Verified 04/03/22 15:53 SKIN Home Meds Home Medications Medication Instructions Recorded Confirmed multivitamin (Daily Multi-Vitamin 1 tab PO DAILY 01/20/19 04/03/22 tablet) cholecalciferol (vitamin D3) 50 2,000 unit PO DAILY ##0 03/01/19 04/03/22 mcg (2,000 unit) capsule insulin aspar prot-insulin aspart 15 unit subcut AMPM 10/06/21 04/03/22 100 unit/mL (70-30) subcutaneous pen gabapentin 100 mg capsule 100 mg PO AMPM 01/14/22 04/03/22 torsemide 20 mg tablet 40 mg PO BID 03/23/22 04/03/22 Previous Rx's Medication Instructions Recorded One Touch Ava Meter Kit #1 ea 02/13/21 pen needle, diabetic 31 gauge x #100 ea 02/13/2110/08" (BD Ultra-Fine Mini Pen Needle) ipratropium 20 mcg-albuterol 100 2 puff inhalation Q6H PRN 03/05/21 mcg/actuation mist for inhalation sob/wheezing #4 grams (Combivent Respimat) lancets 33 gauge (OneTouch Delica #100 ea 04/02/21 Lancets) blood sugar diagnostic (OneTouch #100 ea 08/12/21 Verio test strips) allopurinol 300 mg tablet 300 mg PO QAM #90 tabs 10/10/21 lorazepam 0.5 mg tablet (Ativan) 0.5 mg PO DAILY PRN Sleep #30 tabs 01/06/22 isosorbide mononitrate 120 mg 120 mg PO QAM #90 tabs 01/15/22 tablet,extended release 24 hr levothyroxine 50 mcg tablet 50 mcg PO .COMPLEX #45 tabs 02/13/22 levothyroxine 75 mcg tablet 75 mcg PO .COMPLEX #45 tabs 02/13/22 apixaban 5 mg tablet 5 mg PO BID #60 tabs 03/10/22 potassium chloride 20 mEq 40 meq PO BID #360 tabs 03/10/22 tablet,extended release doxycycline hyclate 100 mg tablet 100 mg PO bid 10 days #20 tabs 04/01/22 metoprolol succinate 200 mg 200 mg PO QAM #90 tabs 04/07/22 tablet,extended release 24 hr Results & Data (ED) Vital Signs Vital Signs - 24 hr 04/08/22 09:01 04/08/22 09:38 04/08/22 10:46 Temperature 36.9 C Temperature Source Oral Pulse Rate 92 H Pulse Rate [Apical] 89 Pulse Rhythm Regular Pulse Strength Normal Respiratory Rate 24 28 H Respiratory Effort / Characteristics Labored Short of Breath Respiratory Depth Normal Respiratory Pattern Tachypnea Blood Pressure [Right Arm] 188/86 H Blood Pressure Mean [Right Arm] 120 Blood Pressure Position [Right Arm] Sitting Pulse Oximetry 95 93 91 Oxygen Delivery Method Room Air Room Air Room Air Sepsis Recent Fever Within 48 Hours No Sepsis New/Unexplained Change in Mental Status No Sepsis Action Taken by Nursing No Action Required 04/08/22 11:06 Temperature Temperature Source Pulse Rate Pulse Rate [Apical] 83 Pulse Rhythm Pulse Strength Respiratory Rate 26 H Respiratory Effort / Characteristics Respiratory Depth Respiratory Pattern Blood Pressure [Right Arm] 178/89 H Blood Pressure Mean [Right Arm] 118 Blood Pressure Position [Right Arm] Pulse Oximetry 92 Oxygen Delivery Method Room Air Sepsis Recent Fever Within 48 Hours Sepsis New/Unexplained Change in Mental Status Sepsis Action Taken by [facility] Medications Current Medication List: was personally reviewed by me Laboratory Data Attestation: I reviewed the patient's lab results. Result diagrams: 04/08/22 09:33 04/08/22 09:33 Lab Results 04/08/22 04/08/22 04/08/22 Range/Units 09:33 09:33 09:33 WBC 8.94 (4.8-10.8) K/ul RBC 4.73 (4.63-6.08) M/uL Hgb 14.5 (14.0-18.0) g/dl Hct 45.7 (40.1-51.0) % MCV 96.6 (80.0-100.0) fL MCH 30.7 (25.0-34.0) pg MCHC 31.7 L (32.0-36.0) g/dL RDW Std Deviation 53.2 H (36.4-46.3) fL RDW Coeff of Liam 15.1 H (11.5-14.5) % Plt Count 191 (130-400) K/uL MPV 10.8 (9.4-12.4) fL Immature Gran % (Auto) 1.5 % Neut % (Auto) 71.6 % Lymph % (Auto) 12.0 % Gilchrist % (Auto) 10.2 % Eos % (Auto) 4.0 % Baso % (Auto) 0.7 % Neut # (Auto) 6.41 (1.4-6.5) K/uL Lymph # (Auto) 1.07 L (1.2-3.4) K/uL Gilchrist # (Auto) 0.91 H (0.24-0.82) K/uL Eos # (Auto) 0.36 (0-0.50) K/uL Baso # (Auto) 0.06 (0-0.2) K/uL Immature Gran # (Auto) 0.13 H (0.00-0.02) K/uL PT 11.8 (9.0-12.0) Seconds INR 1.1 (0.9-1.1) APTT 35.1 H (21.0-31.0) Seconds PTT Ratio 1.3 VBG pH (7.36-7.41) VBG pCO2 (38-50) mmHg VBG pO2 mmHg VBG HCO3 mmol/L VBG O2 Saturation % VBG Base Excess mEq/L Sodium 143 (136-145) mmol/L Potassium 4.2 (3.5-5.1) mmol/L Chloride 104 (98-107) mmol/L Carbon Dioxide 30 (21-32) mmol/L Anion Gap 9 (3-11) BUN 20 (6-23) mg/dl Creatinine 1.57 H (0.6-1.4) mg/dl Est Cr Clr Drug Dosing 47.1 ml/min Est GFR ( Amer) 47.5 ml/min Est GFR (Non-Af Amer) 41.0 ml/min BUN/Creatinine Ratio 12.7 (10-20) Glucose 119 H (70-99(Fasting)) mg/dl Calcium 9.6 (8.5-10.1) mg/dl Magnesium 1.7 (1.7-2.4) mg/dl Total Bilirubin 1.4 H (0.2-1.0) mg/dl AST 26 (13-39) U/L ALT 11 (7-52) U/L Alkaline Phosphatase 122 H (34-104) U/L Troponin I High Sens 37.5 H (0-20) pg/ml B-Natriuretic Peptide (0-100) pg/ml Total Protein 7.1 (6.0-8.3) gm/dl Albumin 3.5 (3.4-5.0) gm/dl Globulin 3.6 (2.5-4.0) gm/dl Albumin/Globulin Ratio 1.0 (0.9-2) Urine Color Urine Appearance (Clear) Urine pH (4.5-7.5) Ur Specific [place] (1.000-1.030) Urine Protein (Negative) Urine Glucose (UA) (Negative) Urine Ketones (Negative) Urine Blood (Negative) Urine Nitrite (Negative) Urine Bilirubin (Negative) Urine Urobilinogen (Negative) Ur Leukocyte Esterase (Negative) Urine WBC (Auto) (0-5) /hpf Urine RBC (Auto) (0-4) /hpf U Hyaline Cast (Auto) (0-5) /lpf U Epithel Cells (Auto) (0-5) /lpf Urine Bacteria (Auto) (Negative) SARS-CoV-2 (PCR) (Negative) Influenza Type A (PCR) (Neg) Influenza Type B (PCR) (Neg) RSV (RT-PCR) (Neg) 04/08/22 04/08/22 04/08/22 Range/Units 09:33 09:33 10:03 WBC (4.8-10.8) K/ul RBC (4.63-6.08) M/uL Hgb (14.0-18.0) g/dl Hct (40.1-51.0) % MCV (80.0-100.0) fL MCH (25.0-34.0) pg MCHC (32.0-36.0) g/dL RDW Std Deviation (36.4-46.3) fL RDW Coeff of Liam (11.5-14.5) % Plt Count (130-400) K/uL MPV (9.4-12.4) fL Immature Gran % (Auto) % Neut % (Auto) % Lymph % (Auto) % Gilchrist % (Auto) % Eos % (Auto) % Baso % (Auto) % Neut # (Auto) (1.4-6.5) K/uL Lymph # (Auto) (1.2-3.4) K/uL Gilchrist # (Auto) (0.24-0.82) K/uL Eos # (Auto) (0-0.50) K/uL Baso # (Auto) (0-0.2) K/uL Immature Gran # (Auto) (0.00-0.02) K/uL PT (9.0-12.0) Seconds INR (0.9-1.1) APTT (21.0-31.0) Seconds PTT Ratio VBG pH 7.45 H (7.36-7.41) VBG pCO2 43 (38-50) mmHg VBG pO2 39 mmHg VBG HCO3 30 mmol/L VBG O2 Saturation 67.7 % VBG Base Excess 5.2 mEq/L Sodium (136-145) mmol/L Potassium (3.5-5.1) mmol/L Chloride (98-107) mmol/L Carbon Dioxide (21-32) mmol/L Anion Gap (3-11) BUN (6-23) mg/dl Creatinine (0.6-1.4) mg/dl Est Cr Clr Drug Dosing ml/min Est GFR ( Amer) ml/min Est GFR (Non-Af Amer) ml/min BUN/Creatinine Ratio (10-20) Glucose (70-99(Fasting)) mg/dl Calcium (8.5-10.1) mg/dl Magnesium (1.7-2.4) mg/dl Total Bilirubin (0.2-1.0) mg/dl AST (13-39) U/L ALT (7-52) U/L Alkaline Phosphatase (34-104) U/L Troponin I High Sens (0-20) pg/ml B-Natriuretic Peptide 437 H (0-100) pg/ml Total Protein (6.0-8.3) gm/dl Albumin (3.4-5.0) gm/dl Globulin (2.5-4.0) gm/dl Albumin/Globulin Ratio (0.9-2) Urine Color Urine Appearance (Clear) Urine pH (4.5-7.5) Ur Specific [place] (1.000-1.030) Urine Protein (Negative) Urine Glucose (UA) (Negative) Urine Ketones (Negative) Urine Blood (Negative) Urine Nitrite (Negative) Urine Bilirubin (Negative) Urine Urobilinogen (Negative) Ur Leukocyte Esterase (Negative) Urine WBC (Auto) (0-5) /hpf Urine RBC (Auto) (0-4) /hpf U Hyaline Cast (Auto) (0-5) /lpf U Epithel Cells (Auto) (0-5) /lpf Urine Bacteria (Auto) (Negative) SARS-CoV-2 (PCR) NEGATIVE (Negative) Influenza Type A (PCR) Negative (Neg) Influenza Type B (PCR) Negative (Neg) RSV (RT-PCR) Negative (Neg) 04/08/22 Range/Units 10:43 WBC (4.8-10.8) K/ul RBC (4.63-6.08) M/uL Hgb (14.0-18.0) g/dl Hct (40.1-51.0) % MCV (80.0-100.0) fL MCH (25.0-34.0) pg MCHC (32.0-36.0) g/dL RDW Std Deviation (36.4-46.3) fL RDW Coeff of Liam (11.5-14.5) % Plt Count (130-400) K/uL MPV (9.4-12.4) fL Immature Gran % (Auto) % Neut % (Auto) % Lymph % (Auto) % Gilchrist % (Auto) % Eos % (Auto) % Baso % (Auto) % Neut # (Auto) (1.4-6.5) K/uL Lymph # (Auto) (1.2-3.4) K/uL Gilchrist # (Auto) (0.24-0.82) K/uL Eos # (Auto) (0-0.50) K/uL Baso # (Auto) (0-0.2) K/uL Immature Gran # (Auto) (0.00-0.02) K/uL PT (9.0-12.0) Seconds INR (0.9-1.1) APTT (21.0-31.0) Seconds PTT Ratio VBG pH (7.36-7.41) VBG pCO2 (38-50) mmHg VBG pO2 mmHg VBG HCO3 mmol/L VBG O2 Saturation % VBG Base Excess mEq/L Sodium (136-145) mmol/L Potassium (3.5-5.1) mmol/L Chloride (98-107) mmol/L Carbon Dioxide (21-32) mmol/L Anion Gap (3-11) BUN (6-23) mg/dl Creatinine (0.6-1.4) mg/dl Est Cr Clr Drug Dosing ml/min Est GFR ( Amer) ml/min Est GFR (Non-Af Amer) ml/min BUN/Creatinine Ratio (10-20) Glucose (70-99(Fasting)) mg/dl Calcium (8.5-10.1) mg/dl Magnesium (1.7-2.4) mg/dl Total Bilirubin (0.2-1.0) mg/dl AST (13-39) U/L ALT (7-52) U/L Alkaline Phosphatase (34-104) U/L Troponin I High Sens (0-20) pg/ml B-Natriuretic Peptide (0-100) pg/ml Total Protein (6.0-8.3) gm/dl Albumin (3.4-5.0) gm/dl Globulin (2.5-4.0) gm/dl Albumin/Globulin Ratio (0.9-2) Urine Color Yellow Urine Appearance Clear (Clear) Urine pH 6.5 (4.5-7.5) Ur Specific [place] 1.015 (1.000-1.030) Urine Protein 3+ H (Negative) Urine Glucose (UA) Negative (Negative) Urine Ketones Negative (Negative) Urine Blood Trace H (Negative) Urine Nitrite Negative (Negative) Urine Bilirubin Negative (Negative) Urine Urobilinogen Negative (Negative) Ur Leukocyte Esterase Negative (Negative) Urine WBC (Auto) 1-5 (0-5) /hpf Urine RBC (Auto) 5-10 H (0-4) /hpf U Hyaline Cast (Auto) 1-5 (0-5) /lpf U Epithel Cells (Auto) 10-20 H (0-5) /lpf Urine Bacteria (Auto) Negative (Negative) SARS-CoV-2 (PCR) (Negative) Influenza Type A (PCR) (Neg) Influenza Type B (PCR) (Neg) RSV (RT-PCR) (Neg) Administered Medications Discontinued Medications Furosemide (Furosemide 40 Mg/4 Ml Vial) 40 mg IV ONE ONE Stop: 04/08/22 09:55 Last Admin: 04/08/22 10:34 Dose: 40 mg Documented By: [facility] Imaging Data Radiologist's Impression: Chest X-Ray 04/08/22 09:14 XR chest 1V portable HISTORY: 81 years-old Male Dyspnea acute shortness of breath COMPARISON: Chest radiograph 10/06/2021 TECHNIQUE: AP view of the chest FINDINGS: Cardiac silhouette is enlarged. Pulmonary vascular congestion with interstitial coarsening. Atherosclerosis of the aorta. No pneumothorax. Small pleural effusions with bibasilar consolidation. Degenerative changes of the shoulders and spine. IMPRESSION: 1. Cardiomegaly with interstitial pulmonary edema. 2. Small pleural effusions with bibasilar consolidation. ACT 112: Negative or not required by law. The above report was generated using voice recognition software. It may contain grammatical, syntax or spelling errors. Electronically signed by: Tonio Jensen M.D. 04/08/2022 9:[address] 04/08/22 09:43 CT head/brain wo con CLINICAL HISTORY: 81 years-old Male with visual diff. Acutely altered mental status with visual difficulty. TECHNIQUE: Multiple axial CT images of the head were obtained without contrast. A dose lowering technique was utilized adhering to the principles of ALARA. CT DOSE: 823.94 mGycm COMPARISON: None. FINDINGS: No acute intracranial hemorrhage, midline shift, intracranial mass, hydrocep halus, territorial ischemia or abnormal extra-axial collection. Age-related involutional changes with ex vacuo ventriculomegaly. White matter hypodensities suggest chronic microvascular ischemic disease. Cerebral vascular calcifications. The calvarium is intact. Bilateral mastoid effusions. Partial left mastoidectomy changes. Mild mucosal thickening of the maxillary sinuses. Hypoplastic frontal sinuses. Prior bilateral lens repair. Unremarkable soft tissues. IMPRESSION: No acute intracranial abnormality. ACT 112: Negative or not required by law. The above report was generated using voice recognition software. It may contain grammatical, syntax or spelling errors. Electronically signed by: Tonio Jensen M.D. 04/08/2022 10:53 AM Discharge Plan Visit Data Chief Complaint: Illness Stated Complaint: CANT BREATHE, TROUBLE STANDING ED Provider: Jordan Pena Discharge Problem: Pulmonary edema, Elevated troponin I level Patient Disposition: Being Evaluated by Hospitalist Forms Stand Alone Forms: My [facility] [employer] Prescriptions Prescriptions: No Action doxycycline hyclate 100 mg tablet 100 mg PO bid 10 Days Qty: 20 0RF cholecalciferol (vitamin D3) 2,000 unit capsule 2,000 unit PO DAILY Qty: 0 Label Comments: TAKE WITH THE MAIN MEAL OF THE DAY. Rx Instructions: TAKE WITH MAIN MEAL OF THE DAY (DME) pen needle, diabetic [BD Ultra-Fine Mini Pen Needle] 31 gauge x 3/16" needle See Dose Instructions .ROUTE .MEDSUPPLY Qty: 100 3RF Rx Instructions: Use with insulin BID (DME) One Touch Ava Meter Kit See Rx Instructions .Route .MEDSUPPLY Qty: 1 0RF Rx Instructions: Glucometer .test BID; (DME) lancets [OneTouch Delica Lancets] 33 gauge misc See Dose Instructions .ROUTE .MEDSUPPLY Qty: 100 3RF Rx Instructions: As directed (DME) OneTouch Verio test strips Strip See Dose Instructions .ROUTE .MEDSUPPLY Qty: 100 5RF Rx Instructions: test BID allopurinol 300 mg tablet 300 mg PO QAM Qty: 90 3RF levothyroxine 75 mcg tablet 75 mcg PO .COMPLEX Qty: 45 3RF Rx Instructions: 75 mcg PO every other day, rotating with 50mcg tabs; levothyroxine 50 mcg tablet 50 mcg PO .COMPLEX Qty: 45 3RF Rx Instructions: 50 mcg PO every other day, rotating with 75mcg tabs; metoprolol succinate 200 mg tablet extended release 24 hr 200 mg PO QAM Qty: 90 1RF torsemide 20 mg tablet 40 mg PO BID isosorbide mononitrate 120 mg tablet extended release 24 hr 120 mg PO QAM Qty: 90 3RF lorazepam [Ativan] 0.5 mg tablet 0.5 mg PO DAILY PRN (Reason: Sleep) Qty: 30 0RF insulin asp prt-insulin aspart 100 unit/mL (70-30) insulin pen 15 unit subcut AMPM multivitamin [Daily Multi-Vitamin] tablet 1 tab PO DAILY Combivent Respimat 20-100 mcg/actuation mist 2 puff INHALATION Q6H PRN (Reason: sob/wheezing) Qty: 4 5RF gabapentin 100 mg capsule 100 mg PO AMPM potassium chloride 20 mEq tablet extended release 40 meq PO BID Qty: 360 3RF apixaban 5 mg tablet 5 mg PO BID Qty: 60 5RF Referrals Referrals: Candida Andrea CRNP [Primary Care Provider] -
--- NOTE | 2022-04-08 09:49 | XRay Report ---
XR chest 1V portable HISTORY: 81 years-old Male Dyspnea acute shortness of breath COMPARISON: Chest radiograph 10/06/2021 TECHNIQUE: AP view of the chest FINDINGS: Cardiac silhouette is enlarged. Pulmonary vascular congestion with interstitial coarsening. Atheroscl erosis of the aorta. No pneumothorax. Small pleural effusions with bibasilar consolidation. Degenerat aliza changes of the shoulders and spine. IMPRESSION: 1. Cardiomegaly with interstitial pulmonary edema. 2. Small pleural effusions with bibasilar consolidation. ACT 112: Negative or not required by law. The above report was generated using voice recognition software. It may contain grammatical, syntax o r spelling errors. Electronically signed by: Tonio Jensen M.D. 04/08/2022 9:47 AM
[2022-04-08 09:51] LABS: Basophils # (auto) 0.06 K/uL (0-0.2); Basophils % (auto) 0.7 %; Eosinophils # (auto) 0.36 K/uL (0-0.50); Hematocrit (blood only) 45.7 % (40.1-51.0); Hemoglobin 14.5 g/dl (14.0-18.0); Immature Granulocytes # (auto) 0.13 K/uL (0.00-0.02); Immature Granulocytes % (auto) 1.5 %; Lymphocytes # (auto) 1.07 K/uL (1.2-3.4); Mean Corpuscular Hemoglobin 30.7 pg (25.0-34.0); Mean Corpuscular Hgb Conc 31.7 g/dL (32.0-36.0); Mean Corpuscular Volume 96.6 fL (80.0-100.0); Mean Platelet Volume 10.8 fL (9.4-12.4); Monocytes # (auto) 0.91 K/uL (0.24-0.82); Monocytes % (auto) 10.2 %; Neutrophils # (auto) 6.41 K/uL (1.4-6.5); Neutrophils % (auto) 71.6 %; Platelet Count 191 K/uL (130-400); RDW Coefficient of Variation 15.1 % (11.5-14.5); RDW Standard Deviation 53.2 fL (36.4-46.3); Red Blood Count 4.73 M/uL (4.63-6.08); White Blood Count 8.94 K/ul (4.8-10.8)
[2022-04-08] MEDS ORDERED: FUROSEMIDE 40 MG/4 ML VIAL IV ONE (09:54)
[2022-04-08 10:05] LABS: INR 1.1 (0.9-1.1); Partial Thromboplastin Ratio 1.3; Partial Thromboplastin Time 35.1 Seconds (21.0-31.0); Prothrombin Time 11.8 Seconds (9.0-12.0)
[2022-04-08 10:15] LABS: Base Excess VBG 5.2 mEq/L; HCO3 VBG 30 mmol/L; Oxygen Saturation VBG 67.7 %; PCO2 VBG 43 mmHg (38-50); PO2 VBG 39 mmHg; pH VBG 7.45 (7.36-7.41)
[2022-04-08 10:23] LABS: Troponin I High Sensitivity 37.5 pg/ml (0-20)
[2022-04-08 10:24] LABS: Albumin Level 3.5 gm/dl (3.4-5.0); BUN Creatinine Ratio 12.7 (10-20); Bilirubin,Total 1.4 mg/dl (0.2-1.0); Calcium 9.6 mg/dl (8.5-10.1); Creatinine Clr Calc Pharmacy 47.1 ml/min; Est GFR (African American) 47.5 ml/min; Globulin 3.6 gm/dl (2.5-4.0); Magnesium 1.7 mg/dl (1.7-2.4); Potassium 4.2 mmol/L (3.5-5.1); Total Protein 7.1 gm/dl (6.0-8.3)
[2022-04-08 10:45] LABS: Influenza A virus by PCR Negative (Neg); Influenza B virus by PCR Negative (Neg); RSV by PCR Negative (Neg); SARS CoV2 RNA(COVID-19) InHosp NEGATIVE (Negative)
--- NOTE | 2022-04-08 10:54 | CT Scan Report ---
CT head/brain wo con CLINICAL HISTORY: 81 years-old Male with visual diff. Acutely altered mental status with visual diff iculty. TECHNIQUE: Multiple axial CT images of the head were obtained without contrast. A dose lowering tech nique was utilized adhering to the principles of ALARA. CT DOSE: 823.94 mGycm COMPARISON: None. FINDINGS: No acute intracranial hemorrhage, midline shift, intracranial mass, hydrocephalus, territorial ischem ia or abnormal extra-axial collection. Age-related involutional changes with ex vacuo ventriculomegal y. White matter hypodensities suggest chronic microvascular ischemic disease. Cerebral vascular calci fications. The calvarium is intact. Bilateral mastoid effusions. Partial left mastoidectomy changes. Mild mucos al thickening of the maxillary sinuses. Hypoplastic frontal sinuses. Prior bilateral lens repair. Unr emarkable soft tissues. IMPRESSION: No acute intracranial abnormality. ACT 112: Negative or not required by law. The above report was generated using voice recognition software. It may contain grammatical, syntax o r spelling errors. Electronically signed by: Tonio Jensen M.D. 04/08/2022 10:53 AM
[2022-04-08 11:01] LABS: Appearance Urine Clear (Clear); Bacteria Urine Automated Negative (Negative); Bilirubin Urine Negative (Negative); Blood Urine Trace (Negative); Color Urine Yellow; Glucose Urine UA Negative (Negative); Ketones Urine Negative (Negative); Leukocyte Esterase Urine Negative (Negative); Nitrite Urine Negative (Negative); Protein Urine 3+ (Negative); Specific Gravity Urine 1.015 (1.000-1.030); Urobilinogen Urine Negative (Negative); pH Urine 6.5 (4.5-7.5)
--- NOTE | 2022-04-08 11:29 | History & Physical Report ---
Date of Service April 08, 2022 Assessment & Plan (1) Pulmonary edema: Plan: Bryn is an 81-year-old male with a past medical history of combined systolic and diastolic CHF, cardiomyopathy, type 2 diabetes with neuropathy, distal aortic dissection, TAMIKA, permanent A. fib, CKD 4, and past liver mass who presented to the ER with shortness of breath and increased difficulty breathing which was worsened while laying flat. He has had associated increased swelling in his legs. No chest pain/chest pressure. Acute shortness of breath, suspect acute on chronic CHF Likely incited by salt load as symptoms started shortly after having [employer] burgers, patient also has had torsemide decreased from 80 mg twice daily to 40 mg twice daily in the last month With increased orthopnea, shortness of breath, and leg swelling On admission no leukocytosis, hemoglobin 14.5, PLT 191, sodium/potassium normal Creatinine baseline approximately 1.82.1, 1.57 on admission High-sensitivity troponin 37.5 BNP elevated to 437, prior BNP ranging from [id number] UA does not appear infected COVID-negative, flu negative CThead: No acute findings CXR: Cardiomegaly with interstitial pulmonary edema, small pleural effusions with bibasilar consolidation Procalcitonin pending EKG: A. fib, no ST segment depression/elevations. Borderline T wave inversion in lead II/III/avf somewhat similar to prior TTE 01/02/2022: EF 55-60%, no regional wall motion abnormality, moderate pulmonary hypertension, reduced right ventricular size with mildly reduced systolic function, left atrial dilation Continue metoprolol, isosorbide Torsemide 40 mg p.o. 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 Switched to weight-based dosing, Lantus 10 twice daily, CF 40, carb ratio 50 BSG AC/at bedtime Goal range [id number] Hypothyroidism Continue Synthroid planning 50 and 75 mcg. 50 mcg dose due 04/08/2022 CKD Follows with nephrology, renally dose medications Creatinine is actually below his normal baseline Per patient lisinopril has been discontinued due to tolerance at his last appointment this past week BMP daily Venous stasis Status post venous seal of the lower extremities, patient completing a course of doxycycline for prophylaxis No acute interventions, continue edema management with Lasix as above and wraps, doxycycline continued DVT prophylaxis: On apixaban Diet: Low-salt, heart healthy Disposition: Med telemetry for acute on chronic CHF CODE STATUS: Full code (2) Acute on chronic diastolic CHF (congestive heart failure): (3) Elevated troponin I level: (4) Liver mass: (5) Hypothyroidism: (6) A-fib: (7) Chronic venous insufficiency: (8) Chronic kidney disease, stage 4 (severe): (9) TAMIKA (obstructive sleep apnea): (10) Diabetic nephropathy associated with type 2 diabetes mellitus: History of Present Illness Primary Care Provider: JOSE Leon Bryn is an 81-year-old male with a past medical history of combined systolic and diastolic CHF, cardiomyopathy, type 2 diabetes with neuropathy, distal aort ic dissection, TAMIKA, permanent A. fib, CKD 4, and past liver mass who presented to the ER with shortness of breath and increased difficulty breathing which was worsened while laying flat. He has had associated increased swelling in his legs. No chest pain/chest pressure. Bryn reports he has had 2 to 3 days of progressively worsening shortness of breath which is worse when laying flat. Shortness of breath occurs and is worse with exertion, is mildly present at rest in the last day. He has had no chest pain, chest pressure, or palpitations. Denies any crackers/salt load, however on dietary review reveals he does like [employer] burgers and had [employer] just prior to onset of symptoms. He has recently seen cardiology and nephrology, had his lisinopril stopped. Would like a printed list of medications at discharge. Has had difficulty filling his prescription from [facility], but notes up until yesterday has taken all of his medications as prescribed. Has not taking any medicines today Takes 50mcg synthroid alternating with 75mcg, due to 50 mcg today. Denies fever, chills, sweats, lightheadedness, dizziness, nausea, vomiting, diarrhea, constipation. He does have some bowel and bladder incontinence at baseline, no saddle anesthesia or or focal neurologic weakness Medical History: Reviewed Medications: Reviewed Surgical History: Reviewed Allergies: Reviewed Social History: Denies tobacco/alcohol use Code Status: Full code Allergies Allergy/AdvReac Type Severity Reaction Status Date / Time morphine Allergy Intermediate DELUSIONS, Verified 04/03/22 15:53 "LOSES TIME" adhesive Allergy Mild RASH Verified 04/03/22 15:53 latex AdvReac Intermediate BLISTERS Verified 04/03/22 15:53 SKIN Home Medications Medication Instructions Recorded Confirmed Type multivitamin (Daily Multi-Vitamin 1 tab PO DAILY 01/20/19 04/03/22 History tablet) cholecalciferol (vitamin D3) 50 2,000 unit PO DAILY ##0 03/01/19 04/03/22 History mcg (2,000 unit) capsule One Touch Ava Meter Kit #1 ea 02/13/21 04/03/22 Rx pen needle, diabetic 31 gauge x #100 ea 02/13/21 04/03/22 Rx 3/16" (BD Ultra-Fine Mini Pen Needle) ipratropium 20 mcg-albuterol 100 2 puff inhalation Q6H PRN 03/05/21 04/03/22 Rx mcg/actuation mist for inhalation sob/wheezing #4 grams (Combivent Respimat) lancets 33 gauge (OneTouch Delica #100 ea 04/02/21 04/03/22 Rx Lancets) blood sugar diagnostic (OneTouch #100 ea 08/12/21 04/03/22 Rx Verio test strips) insulin aspar prot-insulin aspart 15 unit subcut AMPM 10/06/21 04/03/22 History 100 unit/mL (70-30) subcutaneous pen allopurinol 300 mg tablet 300 mg PO QAM #90 tabs 10/10/21 04/03/22 Rx lorazepam 0.5 mg tablet (Ativan) 0.5 mg PO DAILY PRN Sleep #30 tabs 01/06/22 04/03/22 Rx gabapentin 100 mg capsule 100 mg PO AMPM 01/14/22 04/03/22 History isosorbide mononitrate 120 mg 120 mg PO QAM #90 tabs 01/15/22 04/03/22 Rx tablet,extended release 24 hr levothyroxine 50 mcg tablet 50 mcg PO .COMPLEX #45 tabs 02/13/22 04/03/22 Rx levothyroxine 75 mcg tablet 75 mcg PO .COMPLEX #45 tabs 02/13/22 04/03/22 Rx apixaban 5 mg tablet 5 mg PO BID #60 tabs 03/10/22 04/03/22 Rx potassium chloride 20 mEq 40 meq PO BID #360 tabs 03/10/22 04/03/22 Rx tablet,extended release torsemide 20 mg tablet 40 mg PO BID 03/23/22 04/03/22 History doxycycline hyclate 100 mg tablet 100 mg PO bid 10 days #20 tabs 04/01/22 04/01/22 Rx metoprolol succinate 200 mg 200 mg PO QAM #90 tabs 04/07/22 Rx tablet,extended release 24 hr Past Med/Surg History Medical History Allergic rhinitis Arthritis BPH (benign prostatic hyperplasia) Cardiomyopathy Chronic combined systolic and diastolic CHF (congestive heart failure) Chronic kidney disease, stage 3 Chronic obstructive pulmonary disease Claustrophobia Congestive heart failure [facility] COPD (chronic obstructive pulmonary disease) 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 YEAR 10 YEARS AGO History of bronchoscopy History of cardiac cath NO STENTS History of cataract surgery rt/left History of colonoscopy History of ear surgery LEFT MASTOIDECTOMY (DEAF IN LEFT EAR) History of tonsillectomy History of tooth extraction History of total knee replacement RT S/P cholecystectomy Family History Son Colon cancer Coronary heart disease Sister Hypothyroidism Lymphoma Stroke Mother Aortic aneurysm Diabetes Father Heart disease Myocardial infarction Sister Liver problem Other Hypertension Denies family history of Ovarian cancer Prostate cancer Breast cancer Social History Smoking Status: Former smoker Tobacco Type: Cigarettes Age Started Using Tobacco: 16; Age Quit Using Tobacco: 39; packs per day: 5; Years Smoked: 23; Number of Years Since Quit: 39; Second Hand Exposure: No; Hx Alcohol Use: No Hx Substance Use: No Preferred Language: Singaporean Communication Ability: Effective Visual Impairment: No Limitations Hearing Ability: 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 Pneumatic Required: No Beliefs That Will Affect Care: None marital status: Current Living Situation: Spouse current occupational status: retired current occupation: retired from career [employer] for [employer] Feels Safe at Home: Yes Childhood Exposure to Second-Hand Smoke: No caffeine: No during the past year weight has: remained stable Dental Care, Regularly: Yes Physical Activity Frequency: Does not Exercise Seatbelt Use: always Sunscreen Use: No Assistive Devices: Cane and Walker Review of Systems Review of Systems: All systems reviewed & are unremarkable except as noted in HPI & below Physical Exam Physical Exam: General: A&Ox3. NAD. Cooperative. HEENT: Atraumatic, normocephalic. Pulm: Basilar crackles/slight rales. Symmetrical chest rise. No increase in work of breathing. No respiratory distress. Cardiac: RRR, -mrg. Radial pulses intact and symmetrical. JVD just above the level of the clavicle with HJR Abdominal: Nontender, nondistended, soft. BS present. Extremities: Leg wraps with covering socks present from the feet up through knee. Edema is appreciated through palpation. Results & Data Results & Data ([facility]) Vital Signs (Past 12 Hours) Vital Signs Temp Pulse Pulse Resp BP Pulse Ox O2 Del Method 04/08/22 11:06 83 26 H 178/89 H 92 Room Air 04/08/22 10:46 91 Room Air 04/08/22 09:38 89 28 H 188/86 H 93 Room Air 04/08/22 09:01 36.9 C 92 H 24 95 Room Air PG Care Time/CCT Total # of Minutes Spent Total Time Spent with Patient: Total time spent is greater than 50% in coordination of care (as documented) at patient's floor/unit and/or counseling patient: Coding Level of Care Code INT OBSERVATION CARE 50M LVL 2 Diagnoses Pulmonary edema J81.0 Chronicity: acute Acute on chronic diastolic CHF (congestive heart failure) I50.33 Elevated troponin I level R77.8 Liver mass R16.0 Hypothyroidism E03.9 Hypothyroidism type: acquired A-fib I48.91 Chronic venous insufficiency I87.2 Chronic kidney disease, stage 4 (severe) N18.4 TAMIKA (obstructive sleep apnea) G47.33 Diabetic nephropathy associated with type 2 diabetes mellitus E11.21 (1) Pulmonary edema Chronicity: acute Qualified Code(s): J81.0 - Acute pulmonary edema (2) Hypothyroidism Hypothyroidism type: acquired Qualified Code(s): E03.9 - Hypothyroidism, unspecified
[2022-04-08] MEDS ORDERED: METOPROLOL TARTRATE 100 MG TAB PO STA (12:08)
[2022-04-08] MEDS ORDERED: LEVOTHYROXINE SODIUM 50 MCG TABLET PO STA (12:09)
[2022-04-08] MEDS ORDERED: APIXABAN 2.5 MG TAB PO STA (12:18)
--- NOTE | 2022-04-08 12:37 | Electrocardiogram Report ---
Test Reason : Blood Pressure : / mmHG Vent. Rate : 091 BPM Atrial Rate : 082 BPM P-R Int : 000 ms QRS Dur : 094 ms QT Int : 396 ms P-R-T Axes : 000 269 070 degrees QTc Int : 487 ms Atrial fibrillation Incomplete right bundle branch block Anterior infarct (cited on or before 24-MAR-2018) Abnormal ECG When compared with ECG of 16-FEB-2022 10:32, Nonspecific T wave abnormality no longer evident in Inferior leads Confirmed by Jordan Blanchard ([id number]) on 04/08/2022 12:37:04 PM Referred By: Confirmed By:Jordan Blanchard
[2022-04-08] MEDS ORDERED: CARBOHYDRATES FOR HYPOGLYCEMIA PO PRN (14:00)
[2022-04-08] MEDS ORDERED: NITROGLYCERIN SL 0.4 MG/TAB TAB SL PRN (14:00)
[2022-04-08] MEDS ORDERED: POLYETHYLENE (MIRALAX) 17 GM PACK PO PRN (14:00)
[2022-04-08] MEDS ORDERED: LORazepam 0.5 MG TAB PO PRN (14:00)
[2022-04-08] MEDS ORDERED: DEXTROSE 50% 50 ML SYRINGE IV PRN (14:00)
[2022-04-08] MEDS ORDERED: GLUCAGON FOR INJ 1 MG VIAL SQ PRN (14:00)
[2022-04-08] MEDS ORDERED: ONDANSETRON INJ 2 MG/ML 2 ML VIAL IV PRN (14:00)
[2022-04-08] MEDS ORDERED: GLUCOSE 10 TAB/TUBE PO PRN (14:00)
[2022-04-08] MEDS ORDERED: GLUCOSE 40% GEL 15 GM TUBE PO PRN (14:00)
[2022-04-08] MEDS ORDERED: ALBUTEROL HFA INHALER 8.5 GM INH PRN (14:33)
[2022-04-08] MEDS ORDERED: IPRATROPIUM BROMIDE HFA INHALER INH PRN (14:36)
[2022-04-08] MEDS: GABAPENTIN 100 MG CAP PO SCH ×2 (16:23→20:36)
[2022-04-08] MEDS: INSULIN ASPART PER UNIT SC SCH ×2 (17:04→20:44)
[2022-04-08] MEDS: FUROSEMIDE 40 MG/4 ML VIAL IV SCH (17:04)
[2022-04-08] MEDS: APIXABAN 2.5 MG TAB PO SCH (20:35)
[2022-04-08] MEDS: DOXYCYCLINE HYCLATE 100 MG CAP PO SCH (20:36)
[2022-04-08] MEDS: POTASSIUM CHLORIDE CRTAB 20 MEQ TABCR PO SCH (20:36)
[2022-04-08] MEDS: LANTUS PER UNIT CHARGE SQ SCH (20:44)
[2022-04-09] MEDS: LORazepam 0.5 MG TAB PO PRN (00:08)
[2022-04-09] MEDS: LEVOTHYROXINE SODIUM 50 MCG TABLET PO SCH (05:23)
[2022-04-09] MEDS: DOXYCYCLINE HYCLATE 100 MG CAP PO SCH ×2 (07:39→19:32)
[2022-04-09] MEDS: POTASSIUM CHLORIDE CRTAB 20 MEQ TABCR PO SCH ×2 (07:39→19:32)
[2022-04-09] MEDS: allopurinoL 300 MG TAB PO SCH (07:39)
[2022-04-09] MEDS: GABAPENTIN 100 MG CAP PO SCH ×2 (07:40→19:32)
[2022-04-09] MEDS: APIXABAN 2.5 MG TAB PO SCH ×2 (07:40→19:32)
[2022-04-09] MEDS: ISOSORBIDE MONO EXTENDED REL 60 MG TABCR PO SCH (07:40)
[2022-04-09] MEDS: METOPROLOL SUCC 50MG EXT REL TAB PO SCH (07:40)
[2022-04-09] MEDS: FUROSEMIDE 40 MG/4 ML VIAL IV SCH ×2 (07:40→17:07)
[2022-04-09] MEDS: INSULIN ASPART PER UNIT SC SCH ×4 (08:20→22:07)
[2022-04-09] MEDS: LANTUS PER UNIT CHARGE SQ SCH ×2 (08:21→22:06)
--- NOTE | 2022-04-09 08:29 | Hospitalist Progress Note ---
Date of Service April 09, 2022 Assessment & Plan (1) Acute on chronic diastolic CHF (congestive heart failure): Plan: 81-year-old male with a PMHx combined systolic / diastolic CHF, cardiomyopathy, DM2 with neuropathy, distal aortic dissection, TAMIKA, permanent AFib, CKD IV, and past liver mass who presented to the ER with orthopnea and is admitted for acute CHF exacerbation. Acute shortness of breath, suspect acute on chronic CHF: - TTE 01/02/2022: EF 55-60%, no regional wall motion abnormality, moderate pulmonary hypertension, reduced right ventricular size with mildly reduced systolic function, left atrial dilation. - Presented with increased orthopnea, shortness of breath, and leg swelling. - On admission no leukocytosis, hemoglobin 14.5, Plt 191, sodium/potassium normal. - High-sensitivity troponin 37.5, trend unremarkable. - BNP elevated to 437, prior BNP ranging from 813049. - COVID-negative, flu negative. - CXR: Cardiomegaly with interstitial pulmonary edema, small pleural effusions with bibasilar consolidation. - EKG: AFib, no ST segment depression/elevations. Borderline T wave inversion in lead II/III/AVF somewhat similar to prior. - Continue metoprolol, isosorbide. - Torsemide 40 mg p.o. twice daily held; Lasix 40mg IV BID for now with monitoring of output and renal function. - Situation likely incited by salt load as symptoms started shortly after having [employer], as well as recent decrease from torsemide 80 mg BID to 40 mg BID in the last several weeks. - Low sodium diet. (2) Pulmonary edema: Plan: see above (3) Elevated troponin I level: Plan: - Mild troponin elevation without any chest pain or clinical signs of ACS, no acute EKG changes. - Likely due to acute on chronic CHF/volume overload. - Continue treatment as above, 2-hour and overnight troponin trended and unremarkable. (4) Hypothyroidism: Plan: - Continue Synthroid 50 and 75 mcg (alternating days). (5) A-fib: Plan: - Continue apixaban. - Continue rate control with metoprolol 200 mg daily. (6) Chronic venous insufficiency: Plan: - Status post venous seal of the lower extremities; patient completing a course of doxycycline for prophylaxis, which we will continue. - No acute interventions; continue edema management with Lasix as above and wraps. (7) Chronic kidney disease, stage 4 (severe): Plan: - Creatinine baseline approximately 1.82.1, 1.57 on admission. - Follows with Nephrology. - Renally dose medications. - Per patient lisinopril has been discontinued due to intolerance at his last appointment this past week. - BMP daily. (8) TAMIKA (obstructive sleep apnea): Plan: - CPAP home settings. (9) Diabetic nephropathy associated with type 2 diabetes mellitus: Plan: - On 70/30 insulin 15 units AM/PM. - A1c 6.0%. - Basal/bolus insulin while admitted. Plan Code Status: FULL CODE DVT prophylaxis: Eliquis BID Diet: low sodium, heart healthy Dispo: Med/Tele Admission and Anticipated Discharge Date Admission Date: April 08, 2022 Subjective This morning reports that over the last few weeks he has noticed a progressive worsening in his vision, such that far away things are blurrier today than yesterday for example. He states that both eyes are the same. He has a history of cataract surgery he thinks was done about 1.5 years ago. He denies numbness or tingling, limb or facial weakness, balance issues. He feels that his breathing is about the same now as it was yesterday, but it is not worse. Review of Systems Constitutional: no fever and no chills Respiratory: + dyspnea; no cough Cardiovascular: no chest pain and no palpitations Gastrointestinal: no abdominal pain, no nausea and no vomiting Physical Exam Constitutional: WD/WN, vitals as above Respiratory: normal respiratory effort, lungs clear to auscultation Cardiovascular: RRR, no murmur, no edema Gastrointestinal (Abdomen): normal bowel sounds, soft, nontender, no hepatosplenomegaly Skin: no rashes, warm and dry Neurologic: AAOx3, normal speech. PERRLA, EOMI, no nystagmus. Bilateral UE, LE, and face without sensory or motor deficits. No pronator drift. No tremor. Psychiatric: A+Ox3, euthymic affect Results & Data Results & Data ([facility]) Vital Signs (Past 12 Hours) Vital Signs Temp Pulse Pulse Resp BP BP Pulse Ox 04/09/22 08:23 36.3 C L 73 19 180/83 H 98 04/09/22 06:55 72 04/08/22 20:41 190/96 H 04/08/22 22:15 83 04/08/22 22:00 36.6 C 83 20 184/104 H 173/90 H 93 O2 Del Method O2 Flow Rate 04/09/22 08:23 Nasal Cannula 2 04/09/22 06:55 04/08/22 20:41 04/08/22 22:15 04/08/22 22:00 Nasal Cannula 2 PG Care Time/CCT Total # of Minutes Spent Total Time Spent with Patient: Total time spent is greater than 50% in coordination of care (as documented) at patient's floor/unit and/or counseling patient: Coding Level of Care Code 09065 Subseq Hosp Care Lvl 3 Diagnoses Acute on chronic diastolic CHF (congestive heart failure) I50.33 Pulmonary edema J81.0 Chronicity: acute Elevated troponin I level R77.8 Hypothyroidism E03.9 Hypothyroidism type: acquired A-fib I48.91 Chronic venous insufficiency I87.2 Chronic kidney disease, stage 4 (severe) N18.4 TAMIKA (obstructive sleep apnea) G47.33 Diabetic nephropathy associated with type 2 diabetes mellitus E11.21 (1) Hypothyroidism Hypothyroidism type: acquired Qualified Code(s): E03.9 - Hypothyroidism, unspecified (2) Pulmonary edema Chronicity: acute Qualified Code(s): J81.0 - Acute pulmonary edema
[2022-04-09 08:52] LABS: Estimated Average Glucose 126 mg/dl
[2022-04-09 09:04] LABS: Creatinine Clr Calc Pharmacy 44.7 ml/min; Est GFR (African American) 44.4 ml/min; Est GFR (Non-African American) 38.3 ml/min
[2022-04-10] MEDS: LEVOTHYROXINE SODIUM 75 MCG TABLET PO SCH (05:33)
[2022-04-10] MEDS ORDERED: LEVOTHYROXINE SODIUM 75 MCG TABLET PO SCH (06:30)
[2022-04-10] MEDS: allopurinoL 300 MG TAB PO SCH (08:52)
[2022-04-10] MEDS: DOXYCYCLINE HYCLATE 100 MG CAP PO SCH ×2 (08:53→21:45)
[2022-04-10] MEDS: APIXABAN 2.5 MG TAB PO SCH ×2 (08:53→21:45)
[2022-04-10] MEDS: FUROSEMIDE 40 MG/4 ML VIAL IV SCH ×2 (08:53→16:50)
[2022-04-10] MEDS: GABAPENTIN 100 MG CAP PO SCH ×2 (08:54→21:46)
[2022-04-10] MEDS: ISOSORBIDE MONO EXTENDED REL 60 MG TABCR PO SCH (08:54)
[2022-04-10] MEDS: METOPROLOL SUCC 50MG EXT REL TAB PO SCH (08:55)
[2022-04-10] MEDS: POTASSIUM CHLORIDE CRTAB 20 MEQ TABCR PO SCH ×2 (08:55→21:46)
[2022-04-10] MEDS: INSULIN ASPART PER UNIT SC SCH ×4 (09:01→21:48)
[2022-04-10] MEDS: LANTUS PER UNIT CHARGE SQ SCH ×2 (09:02→21:56)
[2022-04-10 09:47] LABS: Basophils # (auto) 0.05 K/uL (0-0.2); Basophils % (auto) 0.6 %; Eosinophils # (auto) 0.39 K/uL (0-0.50); Eosinophils % (auto) 4.8 %; Hematocrit (blood only) 43.2 % (40.1-51.0); Hemoglobin 13.6 g/dl (14.0-18.0); Immature Granulocytes # (auto) 0.16 K/uL (0.00-0.02); Lymphocytes # (auto) 0.94 K/uL (1.2-3.4); Lymphocytes % (auto) 11.6 %; Mean Corpuscular Hemoglobin 30.6 pg (25.0-34.0); Mean Corpuscular Hgb Conc 31.5 g/dL (32.0-36.0); Mean Corpuscular Volume 97.3 fL (80.0-100.0); Monocytes # (auto) 0.76 K/uL (0.24-0.82); Monocytes % (auto) 9.4 %; Neutrophils # (auto) 5.82 K/uL (1.4-6.5); Neutrophils % (auto) 71.6 %; Platelet Count 194 K/uL (130-400); RDW Coefficient of Variation 14.9 % (11.5-14.5); RDW Standard Deviation 53.1 fL (36.4-46.3); Red Blood Count 4.44 M/uL (4.63-6.08); White Blood Count 8.12 K/ul (4.8-10.8)
--- NOTE | 2022-04-10 10:06 | Hospitalist Progress Note ---
Date of Service April 10, 2022 Assessment & Plan (1) Acute on chronic diastolic CHF (congestive heart failure): Plan: 81-year-old male with a PMHx combined systolic / diastolic CHF, cardiomyopathy, DM2 with neuropathy, distal aortic dissection, TAMIKA, permanent AFib, CKD IV, and past liver mass who presented to the ER with orthopnea and is admitted for acute CHF exacerbation. Acute shortness of breath, suspect acute on chronic CHF: - TTE 01/02/2022: EF 55-60%, no regional wall motion abnormality, moderate pulmonary hypertension, reduced right ventricular size with mildly reduced systolic function, left atrial dilation. - Presented with increased orthopnea, shortness of breath, and leg swelling. - On admission no leukocytosis, hemoglobin 14.5, Plt 191, sodium/potassium normal. - High-sensitivity troponin 37.5, trend unremarkable. - BNP elevated to 437, prior BNP ranging from 280761. - COVID-negative, flu negative. - CXR: Cardiomegaly with interstitial pulmonary edema, small pleural effusions with bibasilar consolidation. - EKG: AFib, no ST segment depression/elevations. Borderline T wave inversion in lead II/III/AVF similar to prior. - Continue metoprolol, isosorbide. - Situation likely incited by salt load as symptoms started shortly after having [employer] burgers, as well as recent decrease from torsemide 80 mg BID to 40 mg BID in the last several weeks. - Breathing improved today compared to yesterday, continue BID Lasix. Daily I&Os and daily weights. - Low sodium diet. (2) Pulmonary edema: Plan: see above (3) Elevated troponin I level: Plan: - Mild troponin elevation without any chest pain or clinical signs of ACS, no acute EKG changes. - Likely due to acute on chronic CHF/volume overload. - Continue treatment as above, 2-hour and overnight troponin trended and unremarkable. (4) Chronic kidney disease, stage 4 (severe): Plan: - Creatinine baseline approximately 1.82.1, at baseline this admission. - Follows with Nephrology. - Renally dose medications. - Per patient lisinopril has been discontinued due to intolerance at his last appointment this past week. - BMP daily. (5) Hypothyroidism: Plan: - Continue Synthroid 50 and 75 mcg (alternating days). (6) A-fib: Plan: - Continue apixaban. - Continue rate control with metoprolol 200 mg daily. (7) Chronic venous insufficiency: Plan: - Status post venous seal of the lower extremities; patient completing a course of doxycycline for prophylaxis, which we will continue. - No acute interventions; continue edema management with Lasix as above and wraps. (8) TAMIKA (obstructive sleep apnea): Plan: - CPAP home settings. (9) Diabetic nephropathy associated with type 2 diabetes mellitus: Plan: - On 70/30 insulin 15 units AM/PM. - A1c 6.0%. - Basal/bolus insulin while admitted. Plan Code Status: FULL CODE DVT prophylaxis: Eliquis BID Diet: low sodium, heart healthy Dispo: Med/Tele Admission and Anticipated Discharge Date Admission Date: April 08, 2022 Subjective No events overnight. Patient reports better breathing today, but still with some dyspnea at times like when lying flat. Review of Systems Constitutional: no fever and no chills Respiratory: + dyspnea Cardiovascular: no chest pain and no palpitations Gastrointestinal: no abdominal pain, no nausea and no vomiting Physical Exam Constitutional: WD/WN, vitals as above Respiratory: normal respiratory effort, lungs clear to auscultation Cardiovascular: RRR, no murmur, no edema Gastrointestinal (Abdomen): normal bowel sounds, soft, nontender, no hepatosplenomegaly Skin: no rashes, warm and dry Psychiatric: A+Ox3, euthymic affect Results & Data Results & Data ([facility]) Vital Signs (Past 12 Hours) Vital Signs Temp Pulse Pulse Resp BP BP Pulse Ox 04/10/22 07:39 36.4 C L 74 18 161/86 H 95 04/10/22 07:12 77 04/10/22 03:47 36.5 C 70 18 147/69 H 96 04/09/22 22:16 71 04/09/22 22:54 36.6 C 76 18 146/68 H 96 O2 Del Method O2 Flow Rate 04/10/22 07:39 Nasal Cannula 2 04/10/22 07:12 04/10/22 03:47 Nasal Cannula 2 04/09/22 22:16 04/09/22 22:54 Nasal Cannula 2 PG Care Time/CCT Total # of Minutes Spent Total Time Spent with Patient: Total time spent is greater than 50% in coordination of care (as documented) at patient's floor/unit and/or counseling patient: Coding Level of Care Code 16787 Subseq Hosp Care Lvl 3 Diagnoses Acute on chronic diastolic CHF (congestive heart failure) I50.33 Pulmonary edema J81.0 Chronicity: acute Elevated troponin I level R77.8 Chronic kidney disease, stage 4 (severe) N18.4 Hypothyroidism E03.9 Hypothyroidism type: acquired A-fib I48.91 Chronic venous insufficiency I87.2 TAMIKA (obstructive sleep apnea) G47.33 Diabetic nephropathy associated with type 2 diabetes mellitus E11.21 (1) Hypothyroidism Hypothyroidism type: acquired Qualified Code(s): E03.9 - Hypothyroidism, unspecified (2) Pulmonary edema Chronicity: acute Qualified Code(s): J81.0 - Acute pulmonary edema
[2022-04-10 10:20] LABS: BUN Creatinine Ratio 17.7 (10-20); Est GFR (African American) 34.8 ml/min; Est GFR (Non-African American) 30.1 ml/min; Potassium 4.4 mmol/L (3.5-5.1)
--- NOTE | 2022-04-11 01:41 | Communication Note ---
Date of Service: April 11, 2022 Around midnight I was messaged about patient not feeling well upon getting up to use the bathroom. He had transient difficulty speaking but this quickly resolved. Blood sugar was 88. He denied visual disturbance or headache. Per review of patient's chart, deferred head CT imaging at this time. He is on apixaban. Last head CT was on April 08. At 1:30 AM I was notified that patient had a 2 out of 10 frontal headache. Ordering Tylenol.
[2022-04-11] MEDS: ACETAMINOPHEN 500 MG TAB PO PRN (01:53)
[2022-04-11] MEDS: LEVOTHYROXINE SODIUM 50 MCG TABLET PO SCH (06:36)
[2022-04-11] MEDS: APIXABAN 2.5 MG TAB PO SCH ×2 (08:31→22:25)
[2022-04-11] MEDS: allopurinoL 300 MG TAB PO SCH (08:31)
[2022-04-11] MEDS: DOXYCYCLINE HYCLATE 100 MG CAP PO SCH ×2 (08:31→19:53)
[2022-04-11] MEDS: METOPROLOL SUCC 50MG EXT REL TAB PO SCH (08:31)
[2022-04-11] MEDS: POTASSIUM CHLORIDE CRTAB 20 MEQ TABCR PO SCH ×2 (08:31→19:53)
[2022-04-11] MEDS: GABAPENTIN 100 MG CAP PO SCH ×2 (08:32→19:53)
[2022-04-11] MEDS: ISOSORBIDE MONO EXTENDED REL 60 MG TABCR PO SCH (08:32)
[2022-04-11 09:53] LABS: Calcium 8.9 mg/dl (8.5-10.1); Creatinine Clr Calc Pharmacy 37.4 ml/min; Est GFR (African American) 35.5 ml/min; Est GFR (Non-African American) 30.6 ml/min
[2022-04-11] MEDS: INSULIN ASPART PER UNIT SC SCH ×4 (09:58→20:40)
[2022-04-11] MEDS: LANTUS PER UNIT CHARGE SQ SCH ×2 (09:59→20:40)
[2022-04-11] MEDS: FUROSEMIDE 40 MG/4 ML VIAL IV SCH ×2 (10:04→18:40)
--- NOTE | 2022-04-11 15:07 | Hospitalist Progress Note ---
Date of Service April 11, 2022 Assessment & Plan (1) Acute on chronic diastolic CHF (congestive heart failure): Plan: 81-year-old male with a PMHx combined systolic / diastolic CHF, cardiomyopathy, DM2 with neuropathy, distal aortic dissection, TAMIKA, permanent AFib, CKD IV, and past liver mass who presented to the ER with orthopnea and is admitted for acute CHF exacerbation. Acute shortness of breath, suspect acute on chronic CHF: - TTE 01/02/2022: EF 55-60%, no regional wall motion abnormality, moderate pulmonary hypertension, reduced right ventricular size with mildly reduced systolic function, left atrial dilation. - Presented with increased orthopnea, shortness of breath, and leg swelling. - On admission no leukocytosis, hemoglobin 14.5, Plt 191, sodium/potassium normal. - High-sensitivity troponin 37.5, trend unremarkable. - BNP elevated to 437, prior BNP ranging from 814600. - COVID-negative, flu negative. - CXR: Cardiomegaly with interstitial pulmonary edema, small pleural effusions with bibasilar consolidation. - EKG: AFib, no ST segment depression/elevations. Borderline T wave inversion in lead II/III/AVF similar to prior. - Continue metoprolol, isosorbide. - Situation likely incited by salt load as symptoms started shortly after having [employer], as well as recent decrease from torsemide 80 mg BID to 40 mg BID in the last several weeks. - Breathing improved today compared to yesterday, continue BID Lasix. Daily I&Os and daily weights. - Low sodium diet. (2) Pulmonary edema: Plan: see above (3) Elevated troponin I level: Plan: - Mild troponin elevation without any chest pain or clinical signs of ACS, no acute EKG changes. - Likely due to acute on chronic CHF/volume overload. - Continue treatment as above, 2-hour and overnight troponin trended and unremarkable. (4) Chronic kidney disease, stage 4 (severe): Plan: - Creatinine baseline approximately 1.82.1, at baseline this admission. - Follows with Nephrology. - Renally dose medications. - Per patient lisinopril has been discontinued due to intolerance at his last appointment this past week. - BMP daily. (5) Hypothyroidism: Plan: - Continue Synthroid 50 and 75 mcg (alternating days). (6) A-fib: Plan: - Continue apixaban. - Continue rate control with metoprolol 200 mg daily. (7) Chronic venous insufficiency: Plan: - Status post venous seal of the lower extremities; patient completing a course of doxycycline for prophylaxis, which we will continue. - No acute interventions; continue edema management with Lasix as above and wraps. (8) TAMIKA (obstructive sleep apnea): Plan: - CPAP home settings. (9) Diabetic nephropathy associated with type 2 diabetes mellitus: Plan: - On 70/30 insulin 15 units AM/PM. - A1c 6.0%. - Basal/bolus insulin while admitted; basal decreased and SSI adjusted given hypoglycemia this morning/afternoon. Plan Code Status: FULL CODE DVT prophylaxis: Eliquis BID Diet: low sodium, heart healthy, DM2 Dispo: Med/Tele Admission and Anticipated Discharge Date Admission Date: April 10, 2022 Subjective Overnight reports feeling "weird this morning", noted to have BSG 80s, improved with protocol. Feels that breathing is close to normal; no longer on supplemental O2. Review of Systems Constitutional: no fever and no chills Respiratory: + dyspnea Cardiovascular: no chest pain and no palpitations Gastrointestinal: no abdominal pain, no nausea and no vomiting Physical Exam Constitutional: WD/WN, vitals as above Respiratory: normal respiratory effort, lungs clear to auscultation Cardiovascular: RRR, no murmur, no edema Gastrointestinal (Abdomen): normal bowel sounds, soft, nontender, no hepatosplenomegaly Skin: no rashes, warm and dry Psychiatric: A+Ox3, euthymic affect Results & Data Results & Data ([facility]) Vital Signs (Past 12 Hours) Vital Signs Temp Pulse Resp BP Pulse Ox O2 Del Method O2 Flow Rate 04/11/22 08:00 Nasal Cannula 2 04/11/22 11:08 36.3 C L 64 18 162/81 H 92 Nasal Cannula 2 04/11/22 07:44 36.4 C L 64 18 169/79 H 94 Nasal Cannula 2 04/11/22 04:55 Nasal Cannula 2 PG Care Time/CCT Total # of Minutes Spent Total Time Spent with Patient: Total time spent is greater than 50% in coordination of care (as documented) at patient's floor/unit and/or counseling patient: Coding Level of Care Code 08681 Subseq Hosp Care Lvl 3 Diagnoses Acute on chronic diastolic CHF (congestive heart failure) I50.33 Pulmonary edema J81.0 Chronicity: acute Elevated troponin I level R77.8 Chronic kidney disease, stage 4 (severe) N18.4 Hypothyroidism E03.9 Hypothyroidism type: acquired A-fib I48.91 Chronic venous insufficiency I87.2 TAMIKA (obstructive sleep apnea) G47.33 Diabetic nephropathy associated with type 2 diabetes mellitus E11.21 (1) Hypothyroidism Hypothyroidism type: acquired Qualified Code(s): E03.9 - Hypothyroidism, unspecified (2) Pulmonary edema Chronicity: acute Qualified Code(s): J81.0 - Acute pulmonary edema
[2022-04-11] MEDS: METOPROLOL TARTRATE 1 MG/ML VIAL IV PRN (20:39)
[2022-04-12] MEDS: MELATONIN 3 MG TAB PO PRN ×2 (01:18→23:17)
[2022-04-12] MEDS: METOPROLOL TARTRATE 1 MG/ML VIAL IV PRN ×2 (03:32→19:31)
[2022-04-12] MEDS: LEVOTHYROXINE SODIUM 75 MCG TABLET PO SCH (05:54)
[2022-04-12 07:20] LABS: BUN Creatinine Ratio 22.3 (10-20); Calcium 9.2 mg/dl (8.5-10.1); Creatinine Clr Calc Pharmacy 37.7 ml/min; Potassium 4.4 mmol/L (3.5-5.1)
[2022-04-12] MEDS: ISOSORBIDE MONO EXTENDED REL 60 MG TABCR PO SCH (09:26)
[2022-04-12] MEDS: POTASSIUM CHLORIDE CRTAB 20 MEQ TABCR PO SCH ×2 (09:26→19:39)
[2022-04-12] MEDS: GABAPENTIN 100 MG CAP PO SCH ×2 (09:26→19:39)
[2022-04-12] MEDS: METOPROLOL SUCC 50MG EXT REL TAB PO SCH (09:26)
[2022-04-12] MEDS: allopurinoL 300 MG TAB PO SCH (09:28)
[2022-04-12] MEDS: INSULIN ASPART PER UNIT SC SCH ×4 (09:31→20:31)
[2022-04-12] MEDS: LANTUS PER UNIT CHARGE SQ SCH ×2 (09:32→20:35)
[2022-04-12] MEDS: APIXABAN 2.5 MG TAB PO SCH ×2 (10:16→19:40)
[2022-04-12] MEDS: FUROSEMIDE 40 MG/4 ML VIAL IV SCH ×2 (10:23→16:22)
--- NOTE | 2022-04-12 14:27 | Hospitalist Progress Note ---
Date of Service April 12, 2022 Assessment & Plan (1) Acute on chronic diastolic CHF (congestive heart failure): Plan: 81-year-old male with a PMHx combined systolic / diastolic CHF, cardiomyopathy, DM2 with neuropathy, distal aortic dissection, TAMIKA, permanent AFib, CKD IV, and past liver mass who presented to the ER with orthopnea and is admitted for acute CHF exacerbation. Acute shortness of breath, suspect acute on chronic CHF: - TTE 01/02/2022: EF 55-60%, no regional wall motion abnormality, moderate pulmonary hypertension, reduced right ventricular size with mildly reduced systolic function, left atrial dilation. - Presented with increased orthopnea, shortness of breath, and leg swelling. - On admission no leukocytosis, hemoglobin 14.5, Plt 191, sodium/potassium normal. - High-sensitivity troponin 37.5, trend unremarkable. - BNP elevated to 437, prior BNP ranging from 258687. - COVID-negative, flu negative. - CXR: Cardiomegaly with interstitial pulmonary edema, small pleural effusions with bibasilar consolidation. - EKG: AFib, no ST segment depression/elevations. Borderline T wave inversion in lead II/III/AVF similar to prior. - Continue metoprolol, isosorbide. - Situation likely incited by salt load as symptoms started shortly after having [employer], as well as recent decrease from torsemide 80 mg BID to 40 mg BID in the last several weeks. - Continue BID Lasix with transition to home torsemide on discharge. Daily I&Os and daily weights. - Low sodium diet. - Ambulatory pulse ox today down to 87%; not quite to baseline. - Goal SpO2 88-92% given Hx COPD. (2) Pulmonary edema: Plan: see above (3) Elevated troponin I level: Plan: - Mild troponin elevation without any chest pain or clinical signs of ACS, no acute EKG changes. - Likely due to acute on chronic CHF/volume overload. - Continue treatment as above, 2-hour and overnight troponin trended and unremarkable. (4) Chronic kidney disease, stage 4 (severe): Plan: - Creatinine baseline approximately 1.82.1, at baseline this admission. - Follows with Nephrology. - Renally dose medications. - Per patient lisinopril has been discontinued due to intolerance at his last appointment this past week. - BMP daily. (5) Hypothyroidism: Plan: - Continue Synthroid 50 and 75 mcg (alternating days). (6) A-fib: Plan: - Continue apixaban. - Continue rate control with metoprolol 200 mg daily. (7) Chronic venous insufficiency: Plan: - Status post venous seal of the lower extremities; patient completing a course of doxycycline for prophylaxis, which we will continue. - No acute interventions; continue edema management with Lasix as above and wraps. (8) TAMIKA (obstructive sleep apnea): Plan: - CPAP home settings. (9) Diabetic nephropathy associated with type 2 diabetes mellitus: Plan: - On 70/30 insulin 15 units AM/PM. - A1c 6.0%. - Basal/bolus insulin while admitted. Plan Code Status: FULL CODE DVT prophylaxis: Eliquis BID Diet: low sodium, heart healthy, DM2 Dispo: Med/Tele Admission and Anticipated Discharge Date Admission Date: April 10, 2022 Review of Systems Constitutional: no fever and no chills Respiratory: no cough and no dyspnea Cardiovascular: no chest pain and no palpitations Gastrointestinal: no abdominal pain, no nausea and no vomiting Physical Exam Constitutional: WD/WN, vitals as above Respiratory: normal respiratory effort, lungs clear to auscultation Cardiovascular: RRR no murmurs, bilateral LE wrapped, 1+ bilateral edema Gastrointestinal (Abdomen): normal bowel sounds, soft, nontender, no hepatosplenomegaly Skin: no rashes, warm and dry Psychiatric: A+Ox3, euthymic affect Results & Data Results & Data ([facility]) Vital Signs (Past 12 Hours) Vital Signs Temp Pulse Pulse Resp BP BP Pulse Ox 04/12/22 11:46 36.4 C L 65 18 152/81 H 92 04/12/22 08:00 04/12/22 06:35 65 04/12/22 07:45 36.8 C 61 20 168/87 H 95 04/12/22 03:32 70 184/76 H 04/12/22 03:24 36.8 C 73 24 173/78 H O2 Del Method O2 Flow Rate 04/12/22 11:46 Room Air 04/12/22 08:00 Nasal Cannula 2 04/12/22 06:35 04/12/22 07:45 2 04/12/22 03:32 04/12/22 03:24 PG Care Time/CCT Total # of Minutes Spent Total Time Spent with Patient: Total time spent is greater than 50% in coordination of care (as documented) at patient's floor/unit and/or counseling patient: Coding Level of Care Code 80469 Subseq Hosp Care Lvl 2 Diagnoses Acute on chronic diastolic CHF (congestive heart failure) I50.33 Pulmonary edema J81.0 Chronicity: acute Elevated troponin I level R77.8 Chronic kidney disease, stage 4 (severe) N18.4 Hypothyroidism E03.9 Hypothyroidism type: acquired A-fib I48.91 Chronic venous insufficiency I87.2 TAMIKA (obstructive sleep apnea) G47.33 Diabetic nephropathy associated with type 2 diabetes mellitus E11.21 (1) Hypothyroidism Hypothyroidism type: acquired Qualified Code(s): E03.9 - Hypothyroidism, unspecified (2) Pulmonary edema Chronicity: acute Qualified Code(s): J81.0 - Acute pulmonary edema
[2022-04-12] MEDS ORDERED: TORSEMIDE 10 MG TAB PO SCH (17:00)
[2022-04-13] MEDS: LEVOTHYROXINE SODIUM 50 MCG TABLET PO SCH (05:42)
[2022-04-13 08:06] LABS: BUN Creatinine Ratio 21.9 (10-20); Calcium 9.3 mg/dl (8.5-10.1); Creatinine Clr Calc Pharmacy 37.4 ml/min; Est GFR (African American) 35.3 ml/min; Est GFR (Non-African American) 30.4 ml/min; Potassium 4.2 mmol/L (3.5-5.1)
[2022-04-13] MEDS: APIXABAN 2.5 MG TAB PO SCH ×2 (09:02→21:44)
[2022-04-13] MEDS: POTASSIUM CHLORIDE CRTAB 20 MEQ TABCR PO SCH ×2 (09:03→21:45)
[2022-04-13] MEDS: GABAPENTIN 100 MG CAP PO SCH ×2 (09:03→21:46)
[2022-04-13] MEDS: allopurinoL 300 MG TAB PO SCH (09:04)
[2022-04-13] MEDS: METOPROLOL SUCC 50MG EXT REL TAB PO SCH (09:04)
[2022-04-13] MEDS: ISOSORBIDE MONO EXTENDED REL 60 MG TABCR PO SCH (09:04)
[2022-04-13] MEDS: FUROSEMIDE 40 MG/4 ML VIAL IV SCH ×2 (09:05→16:15)
[2022-04-13] MEDS: INSULIN ASPART PER UNIT SC SCH ×4 (09:13→20:13)
[2022-04-13] MEDS: LANTUS PER UNIT CHARGE SQ SCH ×2 (09:14→21:47)
--- NOTE | 2022-04-13 13:47 | Hospitalist Progress Note ---
Date of Service April 13, 2022 Assessment & Plan (1) Acute on chronic diastolic CHF (congestive heart failure): Plan: Acute shortness of breath, suspect acute on chronic CHF: - TTE 01/02/2022: EF 55-60%, no regional wall motion abnormality, moderate pulmonary hypertension, reduced right ventricular size with mildly reduced systolic function, left atrial dilation. - Presented with increased orthopnea, shortness of breath, and leg swelling. - BNP elevated to 437, prior BNP ranging from 743498. - CXR: Cardiomegaly with interstitial pulmonary edema, small pleural effusions with bibasilar consolidation. - Continue metoprolol, isosorbide. - Situation likely incited by salt load as symptoms started shortly after having [employer], as well as recent decrease from torsemide 80 mg BID to 40 mg BID in the last several weeks. - Continue BID Lasix with transition to home torsemide on discharge. Daily I&Os and daily weights. - I&Os not accurate as patient is flushing urine. Likewise, weights have been a combined standing and bed weight, so swinging wildly of 7 kg per day. On exam, still seems volume overloaded. Lasix really not much higher than his baseline oral dose. Discussed with Erica Aguirre, will increase dose to Lasix 80 mg IV today and monitor Cr. (2) Chronic kidney disease, stage 4 (severe): Plan: Creatinine baseline approximately 1.82.1, at baseline this admission. - Follows with Nephrology. - Renally dose medications. - Per patient lisinopril has been discontinued due to intolerance at his last appointment this past week. - BMP daily. (3) Hypothyroidism: Plan: - Continue Synthroid 50 and 75 mcg (alternating days). (4) A-fib: Plan: - Continue apixaban. - Continue rate control with metoprolol 200 mg daily. (5) Chronic venous insufficiency: Plan: - Status post venous seal of the lower extremities; patient completing a course of doxycycline for prophylaxis, which we will continue. - No acute interventions; continue edema management with Lasix as above and wraps. (6) TAMIKA (obstructive sleep apnea): Plan: - CPAP home settings. (7) Diabetic nephropathy associated with type 2 diabetes mellitus: Plan: - On 70/30 insulin 15 units AM/PM. - A1c 6.0%. - Basal/bolus insulin while admitted. -> BSs have been 85 - 100 in last 24 hours. No lows, so I think this is excellent coverage. Plan Code Status: FULL CODE DVT prophylaxis: Eliquis BID Diet: low sodium, heart healthy, DM2 Dispo: Med/Tele Admission and Anticipated Discharge Date Admission Date: April 10, 2022 Subjective Doing well today. No major issues. Some LE edema. No shortness of breath. Reports no fevers/chills, chest pain, abdominal pain, nausea, or vomiting. Physical Exam Constitutional: WD/WN, vitals as above Eyes: EOM intact bilaterally; no conjunctival abnormality ENMT: external ear and nose normal, oropharynx normal Neck: trachea midline, no thyromegaly normal visual inspection Respiratory: normal respiratory effort, lungs clear to auscultation no respiratory distress Cardiovascular: Rate/Rhythm: regular rate and regular rhythm Extremities: + edema (Mild/moderate in legs) Gastrointestinal (Abdomen): Inspection/Auscultation: abdomen normal to inspection; abdomen not distended Musculoskeletal: no cyanosis or clubbing, extremities motor strength 5/5 Skin: no rashes, warm and dry Neurologic: moves all extremities and awake Psychiatric: Orientation: alert, oriented to person and cooperative Results & Data Results & Data ([facility]) Vital Signs (Past 12 Hours) Vital Signs Temp Pulse Resp BP BP Pulse Ox Pulse Ox 04/13/22 13:06 92 04/13/22 12:09 36.1 C L 67 20 175/77 H 90 04/13/22 11:43 04/13/22 08:00 04/13/22 05:58 63 18 157/70 H 96 04/13/22 03:55 36.4 C L 66 18 171/94 H 96 04/13/22 02:35 Pulse Ox Pulse Ox O2 Del Method O2 Flow Rate O2 Flow Rate O2 Flow Rate O2 Flow Rate 04/13/22 13:06 96 87 L 0 0 0 04/13/22 12:09 Room Air 04/13/22 11:43 Room Air 04/13/22 08:00 Room Air 04/13/22 05:58 Nasal Cannula 2 04/13/22 03:55 Nasal Cannula 2 04/13/22 02:35 Nasal Cannula 2 PG Care Time/CCT Total # of Minutes Spent Total Time Spent with Patient: Total time spent is greater than 50% in coordination of care (as documented) at patient's floor/unit and/or counseling patient: Coding Level of Care Code 97033 Subseq Hosp Care Lvl 2 Diagnoses Acute on chronic diastolic CHF (congestive heart failure) I50.33 Chronic kidney disease, stage 4 (severe) N18.4 Hypothyroidism E03.9 Hypothyroidism type: acquired A-fib I48.91 Chronic venous insufficiency I87.2 TAMIKA (obstructive sleep apnea) G47.33 Diabetic nephropathy associated with type 2 diabetes mellitus E11.21 (1) Hypothyroidism Hypothyroidism type: acquired Qualified Code(s): E03.9 - Hypothyroidism, unspecified
[2022-04-13] MEDS: ACETAMINOPHEN 500 MG TAB PO PRN (14:27)
[2022-04-13] MEDS: LORazepam 0.5 MG TAB PO PRN (21:44)
[2022-04-13] MEDS: MELATONIN 3 MG TAB PO PRN (21:44)
[2022-04-14 06:27] LABS: Hematocrit (blood only) 42.8 % (40.1-51.0); Mean Corpuscular Hgb Conc 30.4 g/dL (32.0-36.0); Mean Corpuscular Volume 98.8 fL (80.0-100.0); Platelet Count 199 K/uL (130-400); RDW Coefficient of Variation 14.9 % (11.5-14.5); RDW Standard Deviation 54.1 fL (36.4-46.3); Red Blood Count 4.33 M/uL (4.63-6.08)
[2022-04-14] MEDS: LEVOTHYROXINE SODIUM 75 MCG TABLET PO SCH (06:38)
[2022-04-14 06:50] LABS: BUN Creatinine Ratio 23.4 (10-20); Calcium 9.3 mg/dl (8.5-10.1); Creatinine Clr Calc Pharmacy 39.2 ml/min; Est GFR (African American) 37.3 ml/min; Est GFR (Non-African American) 32.2 ml/min; Potassium 3.9 mmol/L (3.5-5.1)
[2022-04-14] MEDS: ISOSORBIDE MONO EXTENDED REL 60 MG TABCR PO SCH (08:14)
[2022-04-14] MEDS: APIXABAN 2.5 MG TAB PO SCH (08:14)
[2022-04-14] MEDS: allopurinoL 300 MG TAB PO SCH (08:14)
[2022-04-14] MEDS: POTASSIUM CHLORIDE CRTAB 20 MEQ TABCR PO SCH (08:15)
[2022-04-14] MEDS: FUROSEMIDE 40 MG/4 ML VIAL IV SCH (08:15)
[2022-04-14] MEDS: GABAPENTIN 100 MG CAP PO SCH (08:15)
[2022-04-14] MEDS: METOPROLOL SUCC 50MG EXT REL TAB PO SCH (08:15)
[2022-04-14] MEDS: INSULIN ASPART PER UNIT SC SCH ×2 (08:22→11:55)
[2022-04-14] MEDS: LANTUS PER UNIT CHARGE SQ SCH (08:31)
[2022-04-14 11:33] VITALS: TEMP 98.2; O2SAT 90
[2022-04-14 12:39] VITALS: BP 170/92
[2022-04-14 13:11] VITALS: PULSE 64
--- NOTE | 2022-04-14 15:06 | Discharge Summary ---
Date of Service April 14, 2022 Admission HPI Per Admitting Provider Bryn is an 81-year-old male with a past medical history of combined systolic and diastolic CHF, cardiomyopathy, type 2 diabetes with neuropathy, distal aortic dissection, TAMIKA, permanent A. fib, CKD 4, and past liver mass who presented to the ER with shortness of breath and increased difficulty breathing which was worsened while laying flat. He has had associated increased swelling in his legs. No chest pain/chest pressure. Bryn reports he has had 2 to 3 days of progressively worsening shortness of breath which is worse when laying flat. Shortness of breath occurs and is worse with exertion, is mildly present at rest in the last day. He has had no chest pain, chest pressure, or palpitations. Denies any crackers/salt load, however on dietary review reveals he does like [employer] burgers and had [employer] just prior to onset of symptoms. He has recently seen cardiology and nephrology, had his lisinopril stopped. Would like a printed list of medications at discharge. Has had difficulty filling his prescription from [facility], but notes up until yesterday has taken all of his medications as prescribed. Has not taking any medicines today Takes 50mcg synthroid alternating with 75mcg, due to 50 mcg today. Denies fever, chills, sweats, lightheadedness, dizziness, nausea, vomiting, diarrhea, constipation. He does have some bowel and bladder incontinence at baseline, no saddle anesthesia or or focal neurologic weakness Medical History: Reviewed Medications: Reviewed Surgical History: Reviewed Allergies: Reviewed Social History: Denies tobacco/alcohol use Code Status: Full code Principal Diagnosis Acute CHF Discharge Exam Constitutional WD/WN, vitals as above Eyes EOM intact bilaterally; no conjunctival abnormality ENMT external ear and nose normal, oropharynx normal Neck trachea midline, no thyromegaly normal visual inspection Respiratory normal respiratory effort, lungs clear to auscultation no respiratory distress Cardiovascular Rate/Rhythm: regular rate and regular rhythm Extremities: + edema (Mild/moderate in legs) Gastrointestinal (Abdomen) Inspection/Auscultation: abdomen normal to inspection; abdomen not distended Musculoskeletal no cyanosis or clubbing, extremities motor strength 5/5 Skin no rashes, warm and dry Neurologic moves all extremities and awake Psychiatric Orientation: alert, oriented to person and cooperative Discharge Data Allergies Allergy/AdvReac Type Severity Reaction Status Date / Time morphine Allergy Intermediate DELUSIONS, Verified 04/03/22 15:53 "LOSES TIME" adhesive Allergy Mild RASH Verified 04/03/22 15:53 latex AdvReac Intermediate BLISTERS Verified 04/03/22 15:53 SKIN Consultations 04/08/22 11:21 ED Decision to Admit Stat Ordered Studies 04/08/22 09:43 CT head/brain wo con Stat Hospital Course (1) Acute on chronic diastolic CHF (congestive heart failure): Acute shortness of breath, suspect acute on chronic CHF: - TTE 01/02/2022: EF 55-60%, no regional wall motion abnormality, moderate pulmonary hypertension, reduced right ventricular size with mildly reduced systolic function, left atrial dilation. - Presented with increased orthopnea, shortness of breath, and leg swelling. - BNP elevated to 437, prior BNP ranging from [id number]. - CXR: Cardiomegaly with interstitial pulmonary edema, small pleural effusions with bibasilar consolidation. - Continue metoprolol, isosorbide. - Situation likely incited by salt load as symptoms started shortly after having [employer] burgers, as well as recent decrease from torsemide 80 mg BID to 40 mg BID in the last several weeks. - Continued BID Lasix with transition to home torsemide on discharge. -> 's increased illness had made it harder to eat at home (ie eating out more). Discussed with Blanca Aguirre and patient, and decided to increase torsemide to 60 mg PO BID to help with this lifestyle change. He still had volume on legs, but wanted to go home today. I did walk him through the hallways, and he felt he was at his baseline functional status. had previously declined PT/OT at home. Home O2 arranged. (2) Chronic kidney disease, stage 4 (severe): Creatinine baseline approximately 1.82.1, at baseline this admission. - Follows with Nephrology. - Renally dose medications. - Per patient lisinopril has been discontinued due to intolerance at his last appointment this past week. - BMP daily. -> Cr stable ~1.95 - 2.0. (3) Hypothyroidism: - Continue Synthroid 50 and 75 mcg (alternating days). (4) A-fib: - Continue apixaban. Dose dropped to 2.5 mg PO BID per age and Cr. - Continue rate control with metoprolol 200 mg daily. (5) Chronic venous insufficiency: - Status post venous seal of the lower extremities; patient completing a course of doxycycline for prophylaxis, which we will continue. - No acute interventions; continue edema management with Lasix as above and wraps. (6) TAMIKA (obstructive sleep apnea): - CPAP home settings. (7) Diabetic nephropathy associated with type 2 diabetes mellitus: - On 70/30 insulin 15 units AM/PM. - A1c 6.0%. - Basal/bolus insulin while admitted. -> BSs have been 85 - 100 in last 24 hours. No lows, so I think this is excellent coverage. Plan Code Status: FULL CODE DVT prophylaxis: Eliquis BID Diet: low sodium, heart healthy, DM2 Dispo: Med/Tele CDS query: HTN with CHF and Chronic kidney disease Total Time Total Time Spent Total Time Spent (In Minutes): 35 Discharge Plan Discharge Items Patient Disposition: Home - Home Health Services Reason For Visit: AOC CHF Discharge Diagnosis: Acute on chronic CHF Activity: Resume your previous activity Non-emergency contact: Primary Care Provider and Psychometric Examiner Call non-emergency contact if: your symptoms worsen Follow-up/Referrals: Candida Andrea CRNP [Primary Care Provider] - 04/21/22 2:00 pm Blanca Aguirre PA-C [Physician [employer] School [employer] Instructor] - 04/20/22 10:30 am (Please see Ms. Aguirre in 1 week to make sure you are doing well.) Diet: Heart Healthy and Low Sodium (2gm) Addtl Attending Provider Instructions: Mr. Olvera, You were admitted to the hospital with additional fluid on your legs and lungs. We think this was possibly (probably) due to the increased sodium intake. I tota lly understand that life has changed for you, so you are eating out a bit more. We gave you IV medication (Lasix) to help pull fluid off, and it seems to have helped quite a bit. Since your dietary habits may have changed for some amount of time longer, we are going to increase your diuretic medication slightly. This will hopefully compensate for your increased salt intake. Your weight here in the hospital today is 247 lbs. Please weigh yourself on your home scale today to get a sense. You said you've been running in the 250 lbs range, so I think it would be beneficial to see how your home scale compares to ours. I still think you have a little fluid on your legs, but I don't think this needs to keep you in the hospital since you want to go home. Of note, we did lower your apixaban (Eliquis) dose because your kidney function and age are such that a lower dose is better for you. Please follow up with Blanca Aguirre in the office in the next week because I want to make sure your new dosage of medication is not too high or too low. Pending Studies at Discharge: No Stand-Alone Forms: [facility], Smoking Cessation Medications and DC Order Prescriptions: Continued doxycycline hyclate 100 mg tablet 100 mg PO bid 10 Days Qty: 20 0RF cholecalciferol (vitamin D3) 2,000 unit capsule 2,000 unit PO DAILY Qty: 0 Label Comments: TAKE WITH THE MAIN MEAL OF THE DAY. Rx Instructions: TAKE WITH MAIN MEAL OF THE DAY (DME) pen needle, diabetic [BD Ultra-Fine Mini Pen Needle] 31 gauge x 3/16" needle See Dose Instructions .ROUTE .MEDSUPPLY Qty: 100 3RF Rx Instructions: Use with insulin BID (DME) One Touch Ava Meter Kit See Rx Instructions .Route .MEDSUPPLY Qty: 1 0RF Rx Instructions: Glucometer .test BID; (DME) lancets [OneTouch Delica Lancets] 33 gauge misc See Dose Instructions .ROUTE .MEDSUPPLY Qty: 100 3RF Rx Instructions: As directed (DME) OneTouch Verio test strips Strip See Dose Instructions .ROUTE .MEDSUPPLY Qty: 100 5RF Rx Instructions: test BID allopurinol 300 mg tablet 300 mg PO QAM Qty: 90 3RF levothyroxine 75 mcg tablet 75 mcg PO .COMPLEX Qty: 45 3RF Rx Instructions: 75 mcg PO every other day, rotating with 50mcg tabs; levothyroxine 50 mcg tablet 50 mcg PO .COMPLEX Qty: 45 3RF Rx Instructions: 50 mcg PO every other day, rotating with 75mcg tabs; metoprolol succinate 200 mg tablet extended release 24 hr 200 mg PO QAM Qty: 90 1RF isosorbide mononitrate 120 mg tablet extended release 24 hr 120 mg PO QAM Qty: 90 3RF lorazepam [Ativan] 0.5 mg tablet 0.5 mg PO DAILY PRN (Reason: Sleep) Qty: 30 0RF insulin asp prt-insulin aspart 100 unit/mL (70-30) insulin pen 15 unit subcut AMPM multivitamin [Daily Multi-Vitamin] tablet 1 tab PO DAILY Combivent Respimat 20-100 mcg/actuation mist 2 puff INHALATION Q6H PRN (Reason: sob/wheezing) Qty: 4 5RF gabapentin 100 mg capsule 100 mg PO AMPM potassium chloride 20 mEq tablet extended release 40 meq PO BID Qty: 360 3RF Changed torsemide 20 mg tablet 60 mg PO BID Qty: 180 0RF apixaban 5 mg tablet 2.5 mg PO BID Qty: 60 5RF Discharge Orders: Discharge Order (Routine); Ordered 04/14/22 Ordered By: Juan Kaiser/Other Patient Handouts: What Is Heart Failure, Diabetes and Heart Disease, Low-Salt Choices, Eating Heart-Healthy Foods Admission Data Admit Date/Time: 04/10/22 15:43 Attending Provider: Juan Dee Admit Provider: Irving Aldana Primary Care Provider: Candida Andrea Other Providers: Irving Aldana ; Maribel Lima Other Interventions: Discharge Summary Assessment (RN) Last Done: 04/14/22 12:36 Coding Level of Care Code D/C DAY MANAGEMENT >30 MINS Diagnoses Acute on chronic diastolic CHF (congestive heart failure) I50.33 Chronic kidney disease, stage 4 (severe) N18.4 Hypothyroidism E03.9 Hypothyroidism type: acquired A-fib I48.91 Chronic venous insufficiency I87.2 TAMIKA (obstructive sleep apnea) G47.33 Diabetic nephropathy associated with type 2 diabetes mellitus E11.21
== END 2022-04-14 14:45 | disposition home or self-care (01) | DRG 291 ==
LOC: ED 08:51 → EDINP 08:51 → SUATTDRO 11:34 → 2W 13:59 → SUATTDRO 04-10 15:43

== ENCOUNTER 2022-06-10 15:15 | Inpatient (IN) ==
[2022-06-10 15:58] LABS: Basophils # (auto) 0.03 K/uL (0-0.2); Basophils % (auto) 0.4 %; Eosinophils # (auto) 0.27 K/uL (0-0.50); Eosinophils % (auto) 3.2 %; Hematocrit (blood only) 49.5 % (40.1-51.0); Hemoglobin 15.2 g/dl (14.0-18.0); Immature Granulocytes # (auto) 0.04 K/uL (0.00-0.02); Immature Granulocytes % (auto) 0.5 %; Lymphocytes # (auto) 1.02 K/uL (1.2-3.4); Lymphocytes % (auto) 12.2 %; Mean Corpuscular Hemoglobin 30.5 pg (25.0-34.0); Mean Corpuscular Hgb Conc 30.7 g/dL (32.0-36.0); Mean Corpuscular Volume 99.4 fL (80.0-100.0); Mean Platelet Volume 11.2 fL (9.4-12.4); Monocytes # (auto) 0.78 K/uL (0.24-0.82); Monocytes % (auto) 9.3 %; Neutrophils # (auto) 6.23 K/uL (1.4-6.5); Neutrophils % (auto) 74.4 %; Platelet Count 225 K/uL (130-400); RDW Coefficient of Variation 14.7 % (11.5-14.5); RDW Standard Deviation 54.2 fL (36.4-46.3); Red Blood Count 4.98 M/uL (4.63-6.08); White Blood Count 8.37 K/ul (4.8-10.8)
--- NOTE | 2022-06-10 16:00 | Emergency Department Note ---
Impression & Plan Respiratory failure with hypoxia and hypercapnia, Hypoxic, CHF (congestive heart failure) ED Provider Note NAME: JAMEEL BARCENAS AGE: 81 SEX: M : 1940 ARRIVES VIA: Walk-In INFORMANT: Patient ED PROVIDER(S): Vincent Haque DO CHIEF COMPLAINT: Shortness of breath HPI: Patient is an 81-year-old male who presents to the ER for shortness of breath. Symptoms started within the past 24 hours and have gotten significant worse. Saw his PCP and obtain a chest x-ray which showed CHF and was referred in. He notes he has been very dyspneic with conversation. He is hypoxic on his 2 to 3 L nasal cannula. Denies any headache or change in vision. No chest pain or belly pain. No nausea, vomiting, or diarrhea. He admits to increased swelling in the legs. No other exacerbating or remitting factors. ROS: See above HPI for pertinent positives & negatives. A total of 10 systems reviewed and were otherwise negative. PAST MEDICAL HISTORY:See Below PAST SURGICAL HISTORY:See Below FAMILY HISTORY:See Below SOCIAL HISTORY:See Below HOME MEDICATIONS:See Below ALLERGIES:See Below VITALS:See Below PHYSICAL EXAMINATION: GENERAL: Sitting up in bed, alert, anxious, dyspneic, on nasal cannula EYE EXAM: normal conjunctiva. PERRL and EOM's grossly intact. OROPHARYNX: no exudate, no erythema, lips, buccal mucosa, and tongue normal and mucous membranes are moist NECK: +JVD LUNGS: Diminished bilaterally with poor air movement. Normal chest wall mechanics HEART: Tachycardic, S1 normal and S2 normal ABDOMEN: abdomen soft, non-tender, normo-active bowel sounds, no masses, no rebound or guarding. UPPER EXTREMITIES: upper extremities are grossly normal. LOWER EXTREMITIES: Pitting edema bilaterally NEURO EXAM: Normal sensorium, cranial nerves II-XII grossly intact, normal speech, no gross weakness of arms, no gross weakness of legs. MEDICAL DECISION MAKING: Patient is an 81-year-old male who presents the ER dyspneic with conversation belly breathing. Poor air movement and was hypoxic on his chronic 2 to 3 L. He was placed on oxygen mask and then transitioned immediately on my evaluation to BiPAP. He did improve. Respiratory rate decreased. IV was established blood work was obtained. Labs show no significant leukocytosis or anemia. BMP with a creatinine 1.8. LFTs bilirubin was unremarkable. Troponin was elevated at 42. BNP elevated at 8000. VBG shows a pH of 7.2 with a CO2 of 75. BiPAP rate was increased. Chest x-ray with bilateral pleural effusions. He was given IV Lasix. Placed on Nitropaste. He was discussed with Khang Andrade admitted for further work-up of CHF and hypoxia. Triage Nursing notes reviewed. Limited review of prior medical records performed Vital Signs: reviewed and remarkable for HTN Differential diagnosis: Differential diagnoses includes but is not limited to pneumonia, bronchitis, COPD/Asthma exacerbation, pneumothorax, pulmonary embolism, congestive heart failure, acute coronary syndrome ER treatment provided: See below Diagnostics interpreted by me: ECG: A. fib rate of 76 Low voltage Septal Q waves Inferior Q waves QTC 423 Cardiac Monitoring: An order was placed for continuous cardiac monitoring. The monitor shows a rate of 74 with afib rhythm. Laboratory studies: As stated above and show below. Imaging studies: Chest x-ray with bilateral pleural effusions Consultation(s): Discussed with Khang Andrade for further evaluation Procedures: none Critical Care: I have personally spent 32 minutes of critical care time in the direct management of this patient. This includes bedside care, interpretation of diagnostic studies, and testing, discussion with consultants, patient, and family members, and other required patient management activities. This 32 minutes is in excess of all separately billable procedures. 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 YEAR 10 YEARS AGO History of bronchoscopy History of cardiac cath NO STENTS History of cataract surgery rt/left History of colonoscopy History of ear surgery LEFT MASTOIDECTOMY (DEAF IN LEFT EAR) History of tonsillectomy History of tooth extraction History of total knee replacement RT S/P cholecystectomy Family History Son Colon cancer Coronary heart disease Sister Hypothyroidism Lymphoma Stroke Mother Aortic aneurysm Diabetes Father Heart disease Myocardial infarction Sister Liver problem Other Hypertension Denies family history of Ovarian cancer Prostate cancer Breast cancer Social History Smoking Status: Former smoker Tobacco Type: Cigarettes Age Started Using Tobacco: 16; Age Quit Using Tobacco: 39; packs per day: 5; Second Hand Exposure: No; Hx Alcohol Use: Yes Hx Substance Use: No Preferred Language: Yi Communication Ability: Effective Visual Impairment: No Limitations Hearing Ability: Use of Hearing Aid Va Underwriter Required: No Beliefs That Will Affect Care: None marital status: Current Living Situation: Spouse current occupational status: retired current occupation: retired from [employer] How many Children do You have: 3 Feels Safe at Home: Yes Safety Concerns: Feels Safe At This Time Childhood Exposure to Second-Hand Smoke: No caffeine: No during the past year weight has: remained stable Dental Care, Regularly: Yes Physical Activity Frequency: Does not Exercise Seatbelt Use: always Sunscreen Use: No Assistive Devices: Oxygen - Continuous Allergies Allergies Allergy/AdvReac Type Severity Reaction Status Date / Time morphine Allergy Intermediate DELUSIONS, Verified 06/10/22 16:43 "LOSES TIME" adhesive Allergy Mild RASH Verified 06/10/22 16:43 latex AdvReac Intermediate BLISTERS Verified 06/10/22 16:43 SKIN Home Meds Home Medications Medication Instructions Recorded Confirmed multivitamin (Daily Multi-Vitamin 1 tab PO DAILY 01/20/19 06/10/22 tablet) cholecalciferol (vitamin D3) 50 2,000 unit PO DAILY ##0 03/01/19 06/10/22 mcg (2,000 unit) capsule gabapentin 100 mg capsule 100 mg PO AMPM 01/14/22 06/10/22 lorazepam 0.5 mg tablet 0.5 mg PO HS PRN Sleep 06/10/22 06/10/22 mirtazapine 7.5 mg tablet 7.5 mg PO HS 06/10/22 06/10/22 torsemide 20 mg tablet 60 mg PO BID 06/10/22 06/10/22 Previous Rx's Medication Instructions Recorded One Touch Ava Meter Kit #1 ea 02/13/21 pen needle, diabetic 31 gauge x #100 ea 02/13/21 3/16" (BD Ultra-Fine Mini Pen Needle) ipratropium 20 mcg-albuterol 100 2 puff inhalation Q6H PRN 03/05/21 mcg/actuation mist for inhalation sob/wheezing #4 grams (Combivent Respimat) lancets 33 gauge (OneTouch Delica #100 ea 04/02/21 Lancets) blood sugar diagnostic (OneTouch #100 ea 08/12/21 Verio test strips) allopurinol 300 mg tablet 300 mg PO QAM #90 tabs 10/10/21 isosorbide mononitrate 120 mg 120 mg PO QAM #90 tabs 01/15/22 tablet,extended release 24 hr levothyroxine 50 mcg tablet 50 mcg PO .COMPLEX #45 tabs 02/13/22 levothyroxine 75 mcg tablet 75 mcg PO .COMPLEX #45 tabs 02/13/22 potassium chloride 20 mEq 40 meq PO BID #360 tabs 03/10/22 tablet,extended release metoprolol succinate 200 mg 200 mg PO QAM #90 tabs 04/07/22 tablet,extended release 24 hr insulin aspar prot-insulin aspart 15 unit (0.15 mL) subcut AMPM #15 04/18/22 100 unit/mL (70-30) subcutaneous mL pen Portable Oxygen #1 ea 05/21/22 apixaban 5 mg tablet 5 mg PO BID #60 tabs 05/21/22 atorvastatin 40 mg tablet 40 mg PO QPM #30 tabs 05/21/22 portable oxygen concentrator #1 ea 05/26/22 Results & Data (ED) Vital Signs Vital Signs - 24 hr 06/10/22 15:18 06/10/22 15:54 06/10/22 16:00 Temperature 36.6 C Temperature Source Temporal Artery Scan Pulse Rate 71 Pulse Rate [Apical] 73 Respiratory Rate 24 22 Respiratory Effort / Characteristics Non-Labored Spontaneous Respiratory Depth Normal Respiratory Pattern Tachypnea Blood Pressure 156/86 H Blood Pressure [Left Arm] 191/104 H Blood Pressure Mean 109 Blood Pressure Mean [Left Arm] 133 Blood Pressure Position Sitting Pulse Oximetry 87 L 94 96 Oxygen Delivery Method Nasal Cannula Oxymask BiPAP Oxygen Flow Rate 2 9 Fraction of Inspired Oxygen Sepsis Recent Fever Within 48 Hours No Sepsis New/Unexplained Change in Mental Status N/A Sepsis Action Taken by Nursing No Action Required Pulse Oximetry Post Tiitration 06/10/22 16:17 06/10/22 16:29 06/10/22 16:32 Temperature Temperature Source Pulse Rate 62 68 Pulse Rate [Apical] Respiratory Rate 21 18 Respiratory Effort / Characteristics Spontaneous Labored Spontaneous Respiratory Depth Respiratory Pattern Regular Regular Blood Pressure Blood Pressure [Left Arm] Blood Pressure Mean Blood Pressure Mean [Left Arm] Blood Pressure Position Pulse Oximetry 97 96 92 Oxygen Delivery Method Oxymask BiPAP Oxygen Flow Rate 9 Fraction of Inspired Oxygen 40 30 Sepsis Recent Fever Within 48 Hours Sepsis New/Unexplained Change in Mental Status Sepsis Action Taken by Nursing Pulse Oximetry Post Tiitration 96 06/10/22 16:51 Temperature Temperature Source Pulse Rate Pulse Rate [Apical] 70 Respiratory Rate 18 Respiratory Effort / Characteristics Respiratory Depth Respiratory Pattern Blood Pressure Blood Pressure [Left Arm] 178/92 H Blood Pressure Mean Blood Pressure Mean [Left Arm] 120 Blood Pressure Position Pulse Oximetry 95 Oxygen Delivery Method BiPAP Oxygen Flow Rate Fraction of Inspired Oxygen Sepsis Recent Fever Within 48 Hours Sepsis New/Unexplained Change in Mental Status Sepsis Action Taken by Nursing Pulse Oximetry Post Tiitration Laboratory Data Result diagrams: 06/10/22 15:45 06/10/22 15:45 Lab Results 06/10/22 06/10/22 06/10/22 Range/Units 15:45 15:45 15:45 WBC 8.37 (4.8-10.8) K/ul RBC 4.98 (4.63-6.08) M/uL Hgb 15.2 (14.0-18.0) g/dl Hct 49.5 (40.1-51.0) % MCV 99.4 (80.0-100.0) fL MCH 30.5 (25.0-34.0) pg MCHC 30.7 L (32.0-36.0) g/dL RDW Std Deviation 54.2 H (36.4-46.3) fL RDW Coeff of [place]ima 14.7 H (11.5-14.5) % Plt Count 225 (130-400) K/uL MPV 11.2 (9.4-12.4) fL Immature Gran % (Auto) 0.5 % Neut % (Auto) 74.4 % Lymph % (Auto) 12.2 % Gove % (Auto) 9.3 % Eos % (Auto) 3.2 % Baso % (Auto) 0.4 % Neut # (Auto) 6.23 (1.4-6.5) K/uL Lymph # (Auto) 1.02 L (1.2-3.4) K/uL Gove # (Auto) 0.78 (0.24-0.82) K/uL Eos # (Auto) 0.27 (0-0.50) K/uL Baso # (Auto) 0.03 (0-0.2) K/uL Immature Gran # (Auto) 0.04 H (0.00-0.02) K/uL Sodium 145 (136-145) mmol/L Potassium 4.3 (3.5-5.1) mmol/L Chloride 104 (98-107) mmol/L Carbon Dioxide 38 H (21-32) mmol/L Anion Gap 3 (3-11) BUN 44 H (6-23) mg/dl Creatinine 1.80 H (0.6-1.4) mg/dl Est Cr Clr Drug Dosing Not Reportable Est GFR ( Amer) 40.3 ml/min Est GFR (Non-Af Amer) 34.8 ml/min BUN/Creatinine Ratio 24.4 H (10-20) Glucose 113 H (70-99(Fasting)) mg/dl Calcium 9.7 (8.5-10.1) mg/dl Total Bilirubin 1.1 H (0.2-1.0) mg/dl AST 34 (13-39) U/L ALT 19 (7-52) U/L Alkaline Phosphatase 180 H (34-104) U/L Troponin I High Sens 42.6 H (0-20) pg/ml B-Natriuretic Peptide (0-100) pg/ml Total Protein 7.9 (6.0-8.3) gm/dl Albumin 3.9 (3.4-5.0) gm/dl Globulin 4.0 (2.5-4.0) gm/dl Albumin/Globulin Ratio 1.0 (0.9-2) Lipase 21 (11-82) U/L SARS-CoV-2, RNA, NAAT NEGATIVE (NEGATIVE) 06/10/22 Range/Units 15:45 WBC (4.8-10.8) K/ul RBC (4.63-6.08) M/uL Hgb (14.0-18.0) g/dl Hct (40.1-51.0) % MCV (80.0-100.0) fL MCH (25.0-34.0) pg MCHC (32.0-36.0) g/dL RDW Std Deviation (36.4-46.3) fL RDW Coeff of Liam (11.5-14.5) % Plt Count (130-400) K/uL MPV (9.4-12.4) fL Immature Gran % (Auto) % Neut % (Auto) % Lymph % (Auto) % Gove % (Auto) % Eos % (Auto) % Baso % (Auto) % Neut # (Auto) (1.4-6.5) K/uL Lymph # (Auto) (1.2-3.4) K/uL Gove # (Auto) (0.24-0.82) K/uL Eos # (Auto) (0-0.50) K/uL Baso # (Auto) (0-0.2) K/uL Immature Gran # (Auto) (0.00-0.02) K/uL Sodium (136-145) mmol/L Potassium (3.5-5.1) mmol/L Chloride (98-107) mmol/L Carbon Dioxide (21-32) mmol/L Anion Gap (3-11) BUN (6-23) mg/dl Creatinine (0.6-1.4) mg/dl Est Cr Clr Drug Dosing Est GFR ( Amer) ml/min Est GFR (Non-Af Amer) ml/min BUN/Creatinine Ratio (10-20) Glucose (70-99(Fasting)) mg/dl Calcium (8.5-10.1) mg/dl Total Bilirubin (0.2-1.0) mg/dl AST (13-39) U/L ALT (7-52) U/L Alkaline Phosphatase (34-104) U/L Troponin I High Sens (0-20) pg/ml B-Natriuretic Peptide 1096 H (0-100) pg/ml Total Protein (6.0-8.3) gm/dl Albumin (3.4-5.0) gm/dl Globulin (2.5-4.0) gm/dl Albumin/Globulin Ratio (0.9-2) Lipase (11-82) U/L SARS-CoV-2, RNA, NAAT (NEGATIVE) Administered Medications Nitroglycerin (Nitroglycerin 2% Ointment 30gm Tube) 2 inch EXT Q6H SURYA Stop: 07/10/22 15:59 Last Admin: 06/10/22 16:28 Dose: 2 inch Documented By: OL Discontinued Medications Furosemide (Furosemide 40 Mg/4 Ml Vial) 80 mg IV ONE ONE Stop: 06/10/22 16:53 Last Admin: 06/10/22 17:56 Dose: 80 mg Documented By: OL Furosemide (Furosemide 40 Mg/4 Ml Vial) 40 mg IV NOW STA Stop: 06/10/22 17:08 Last Admin: 06/10/22 17:50 Dose: Not Given Documented By: OL Imaging Data Radiologist's Impression: Chest X-Ray 06/10/22 15:43 XR chest 1V portable CLINICAL HISTORY: Chest Pain TECHNIQUE: Single frontal radiograph of the chest was obtained. Comparison: Comparison is made to chest radiograph 04/07/2022 FINDINGS: No lines and tubes are seen. The aorta is tortuous. The remainder of the cardiomediastinal silhouette is unremarkable. Bilateral lower lung predominant airspace opacities are seen. Bilateral pleural effusions are seen. IMPRESSION: 1. Cardiomegaly is noted. There is mild pulmonary congestion but no teresita edema. 2. Small bilateral pleural effusions are seen with bibasilar airspace opacities, similar to prior exam. ACT 112: Negative or not required by law. Electronically signed by: Saturnino Parra M.D. 06/10/2022 4:26 PM Discharge Plan Visit Data Chief Complaint: Shortness of Breath/Dyspnea Stated Complaint: FLUID IN LUNGS, SOB ED Provider: Vincent Haque Discharge Problem: Respiratory failure with hypoxia and hypercapnia, Hypoxic, CHF (congestive heart failure)
[2022-06-10 16:26] LABS: Alanine Aminotransferase 19 U/L (7-52); Albumin Level 3.9 gm/dl (3.4-5.0); Alkaline Phosphatase 180 U/L (34-104); Anion Gap 3 (3-11); Aspartate Aminotransferase 34 U/L (13-39); BUN Creatinine Ratio 24.4 (10-20); Bilirubin,Total 1.1 mg/dl (0.2-1.0); Blood Urea Nitrogen 44 mg/dl (6-23); Calcium 9.7 mg/dl (8.5-10.1); Carbon Dioxide 38 mmol/L (21-32); Chloride 104 mmol/L (98-107); Est GFR (African American) 40.3 ml/min; Est GFR (Non-African American) 34.8 ml/min; Glucose 113 mg/dl (70-99(Fasting)); Lipase 21 U/L (11-82); Potassium 4.3 mmol/L (3.5-5.1); Sodium 145 mmol/L (136-145); Total Protein 7.9 gm/dl (6.0-8.3)
--- NOTE | 2022-06-10 16:27 | XRay Report ---
XR chest 1V portable CLINICAL HISTORY: Chest Pain TECHNIQUE: Single frontal radiograph of the chest was obtained. Comparison: Comparison is made to chest radiograph 04/07/2022 FINDINGS: No lines and tubes are seen. The aorta is tortuous. The remainder of the cardiomediastinal silhouette is unremarkable. Bilateral lower lung predominant airspace opacities are seen. Bilateral pleural eff usions are seen. IMPRESSION: 1. Cardiomegaly is noted. There is mild pulmonary congestion but no teresita edema. 2. Small bilateral pleural effusions are seen with bibasilar airspace opacities, similar to prior ex am. ACT 112: Negative or not required by law. Electronically signed by: Saturnino Parra M.D. 06/10/2022 4:26 PM
[2022-06-10] MEDS: NITROGLYCERIN 2% OINTMENT 30GM TUBE EXT SCH ×3 (16:28→22:41)
[2022-06-10 16:29] LABS: Troponin I High Sensitivity 42.6 pg/ml (0-20)
[2022-06-10] MEDS ORDERED: FUROSEMIDE 40 MG/4 ML VIAL IV ONE (16:52)
--- NOTE | 2022-06-10 16:54 | History & Physical Report ---
Date of Service June 10, 2022 Assessment & Plan (1) Acute and chronic respiratory failure with hypoxia: Plan: -Admit to PCU -Patient is currently afebrile, Hypertensive at 178/92, and stable on Bipap at 16/5 -At this time the patient's acute on chronic hypoxemic respiratory failure appears to be due to CHF exacerbation. Per history, it appears that the patient misunderstood his DC instructions and was only taking 20 mg PO Torsemide BID instead of his prescribed 60 mg PO BID -Patient has been afebrile, without leukocytosis, and without systemic signs of infection -Significantly volume overloaded on exam and BNP currently at 1096 (was 850 as of 04/20/22) -Will continue Bipap overnight as patient is extremely volume overloaded. -Ordered 80 mg IV lasix now, monitor intake, output, and weight Q-Shift. -Will repeat ABG in 2 hours to ensure his respiratory status is improving -Will continue with 80 mg IV lasix BID for now -Will consult Blanca Wadsworth assist with heart failure treatment and coordinate outpatient follow-up -AM CBC and CMP (2) Elevated troponin I level: Plan: -Initial troponin noted to be 42.6 on arrival to the ED -No acute ECG changes noted when compared to his last ECG, elevated troponin likely related to demand -Patient denies chest pain and pressure -Will obtain another troponin with his repeat ABG to ensure levels plateau -Continue to monitor on tele (3) CVA (cerebral vascular accident): Plan: -Was hospitalized last month -Continue increased Eliquis level at 5 mg BID -Continue atorvastatin (4) COPD (chronic obstructive pulmonary disease): Plan: -Continue ipratropium-albuterol -Incentive spirometry, flutter therapy -Goal SpO2 between 88-92%, wean back to home O2 of 2-3L NC (5) Hypothyroidism: Plan: -Continue levothyroxine (6) Permanent atrial fibrillation: Plan: -Continue Eliquis, metoprolol (7) TAMIKA (obstructive sleep apnea): Plan: -Does not use CPAP as he is claustrophobic -Encourge use on discharge (8) Hypertension: Plan: -Continue metoprolol and Imdur -Patient placed on 2 inches of nitro paste in the ED for hypertension with systolics in the 190's. Currently improved to 178/92. Will continue 2 inches of nitro paste with order comments and separate communication to DC for systolic BP less than 120 mmHg (9) Acute on chronic diastolic CHF (congestive heart failure): Plan: -Hold torsemide for now -Continue with 80 mg IV lasix BID -Monitor intake/output and weight Q-shift -FU with CHF consult placed on admission -Continue Imdur (10) Diabetes mellitus type 2, controlled, with complications: Plan: -Normally on 70/30 at home -While patient is NPO and on Bipap will switch to basal/bolus regimen -Will start him on 5 units lantus BID with correction factor of 40 and carb ratio of 13 -While NPO will monitor BSG q6h (11) Liver mass: Plan: -Previously found on prior admissions -Per his latest PCP note his scheduled outpatient liver biopsy with GI was cancelled due to recent stroke -Is supposed to get outpatient MRI of the liver -Liver function currently stable (12) Anxiety: Plan: -Will HS ativan and remeron for now to prevent further respiratory failure -May need a small does of ativan if he is too anxious later on Bipap Plan The patient was discussed with Dr. Andrade at the time of the admission History of Present Illness Chief Complaint: SOB Primary Care Provider: JOSE Leon Bryn is an 81-year-old male with a past medical history of combined systolic and diastolic CHF, cardiomyopathy, type 2 diabetes with neuropathy, hypothyroidism, distal aortic dissection, TAMIKA, permanent A. fib on Eliquis, CKD 4, Hx of liver mass, COPD, chronic hypoxic respiratory failure on 2-3L NC at baseline and recent embolic stroke who presented to the [facility] ED on 06/10/22 with SOB. In the ED the patient was noted to be afebrile, hypertensive at 191/104, and hypoxic in the 80's on his 3L NC. Per the ED staff the patient was very dyspneic and was unable to speak in complete sentences. Chest xray obtained showed "Cardiomegaly is noted. There is mild pulmonary congestion but no teresita edema. Small bilateral pleural effusions are seen with bibasilar airspace opacities, similar to prior exam". The patient was placed on Bipap due to his respiratory failure. Labs were remarkable for WBC WNL, stable Hgb at 15.2, stable renal function and electrolytes, glucose of 113, total bili of 1.1, alk phos of 180, first high sensitivity troponin of 42.6, BNP of 1096. ABG obtained after the patient was placed on Bipap showed a pH of 7.28, pCO2 of 75.2, pO2 of 22, and bicarb of 35.7. After the abg the patinet's Bipap settings were increased from 12/5 to 16/5. Per chart review, the patient was recently admitted to [facility] from 04/08/22- 04/14/22 for acute hypoxic respiratory failure due to CHF exacerbation. His CHF exacerbation was though to be caused by increased sodium intake from eating out more often due to his being ill and having his does of torsemide decreased around that time. He was treated with IV lasix while admitted, on discharge his dose of Torsemide was increased back to 60 mg PO BID. He was also recently hospitalized at [facility] from 05/04/22-05/12/22 for acute ischemic stroke vs TIA. The patient was evaluated by Neurology who recommended increasing the dose of his Eliquis from 2.5 mg BID to 5 mg BID. The patient participated in PT/OT while admitted and his function continued to improve. There were initial plans for him to be discharged [facility] but he was denied. On the day of discharge he was able to walk 100 feet with a rolling walker independently and was discharged home. At the time of the exam the patient was sitting in bed with his Bipap mask in place in no acute distress with his sitting bedside. History was mainly obtained from the patient's due to the patient still being on Bipap. She states that the patient had been doing fairly well since discharge home after his admission at [facility]. However, she states that he fluctuates between good and bad days both with his breathing and his mentation. At rest he is normally using 2L NC, she states that he is often needed to increase his oxygen to 3-4L with exertion or when home PT works with him. She states that they have been trying hard to reduce his sodium intake, he has still been taking his Torsemide 60 mg PO BID. However, the patient verbalized that he thought he was only supposed to take 20 mg PO BID. After review of the discharge summary from [facility] it instructed him to continue the 20 mg tabs at 3 tabs BID, but it appears that the patient may have misunderstood the dosing. Over the past 48 hours his states that he has experienced increased SOB and lower extremity edema. They had 2 doctors appointments today. She confirms that he took all of his AM medications prior to his first appt this morning. She states that they obtained a chest xray at the [facility]. While they were on their way home [facility] because he had fluid in his lungs. They were on their way to his follow-up PCP appt so they went there instead. His spoke to the patient's PCP who instructed them to come to the ED. The patient's states that they wish the patient would have been accepted to [facility] after his discharge from [facility] as she thinks this could have been prevented. I spoke to them regarding code status; the patient is a Full Code and his would make decisions for him if he could not make them herself. When asked, the patient denies recent or current fevers, chills, chest pain, abdominal pain, nausea, vomiting Please refer to Dr. Andrade's attestation for any changes to the treatment plan Allergies Allergy/AdvReac Type Severity Reaction Status Date / Time morphine Allergy Intermediate DELUSIONS, Verified 06/10/22 16:43 "LOSES TIME" adhesive Allergy Mild RASH Verified 06/10/22 16:43 latex AdvReac Intermediate BLISTERS Verified 06/10/22 16:43 SKIN Home Medications Medication Instructions Recorded Confirmed Type multivitamin (Daily Multi-Vitamin 1 tab PO DAILY 01/20/19 06/10/22 History tablet) cholecalciferol (vitamin D3) 50 2,000 unit PO DAILY ##0 03/01/19 06/10/22 History mcg (2,000 unit) capsule One Touch Ava Meter Kit #1 ea 02/13/21 05/21/22 Rx pen needle, diabetic 31 gauge x #100 ea 02/13/21 05/21/22 Rx /16" (BD Ultra-Fine Mini Pen Needle) ipratropium 20 mcg-albuterol 100 2 puff inhalation Q6H PRN 03/05/21 06/10/22 Rx mcg/actuation mist for inhalation sob/wheezing #4 grams (Combivent Respimat) lancets 33 gauge (OneTouch Delica #100 ea 04/02/21 05/21/22 Rx Lancets) blood sugar diagnostic (OneTouch #100 ea 08/12/21 05/21/22 Rx Verio test strips) allopurinol 300 mg tablet 300 mg PO QAM #90 tabs 10/10/21 06/10/22 Rx gabapentin 100 mg capsule 100 mg PO AMPM 01/14/22 06/10/22 History isosorbide mononitrate 120 mg 120 mg PO QAM #90 tabs 01/15/22 06/10/22 Rx tablet,extended release 24 hr levothyroxine 50 mcg tablet 50 mcg PO .COMPLEX #45 tabs 02/13/22 06/10/22 Rx levothyroxine 75 mcg tablet 75 mcg PO .COMPLEX #45 tabs 02/13/22 06/10/22 Rx potassium chloride 20 mEq 40 meq PO BID #360 tabs 03/10/22 06/10/22 Rx tablet,extended release metoprolol succinate 200 mg 200 mg PO QAM #90 tabs 04/07/22 06/10/22 Rx tablet,extended release 24 hr insulin aspar prot-insulin aspart 15 unit (0.15 mL) subcut AMPM #15 04/18/22 06/10/22 Rx 100 unit/mL (70-30) subcutaneous mL pen Portable Oxygen #1 ea 05/21/22 Rx apixaban 5 mg tablet 5 mg PO BID #60 tabs 05/21/22 06/10/22 Rx atorvastatin 40 mg tablet 40 mg PO QPM #30 tabs 05/21/22 06/10/22 Rx portable oxygen concentrator #1 ea 05/26/22 Rx lorazepam 0.5 mg tablet 0.5 mg PO HS PRN Sleep 06/10/22 06/10/22 History mirtazapine 7.5 mg tablet 7.5 mg PO HS 06/10/22 06/10/22 History torsemide 20 mg tablet 60 mg PO BID 06/10/22 06/10/22 History Past Med/Surg History Medical History (Updated 06/10/22 @ 19:00 by Vincent Haque DO) Allergic rhinitis Arthritis BPH (benign prostatic hyperplasia) Cardiomyopathy Chronic combined systolic and diastolic CHF (congestive heart failure) Chronic kidney disease, stage 3 Chronic obstructive pulmonary disease Claustrophobia Congestive heart failure [facility] COPD (chronic obstructive pulmonary disease) Diabetic nephropathy associated with type 2 diabetes mellitus Hearing deficit 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 YEAR 10 YEARS AGO History of bronchoscopy History of cardiac cath NO STENTS History of cataract surgery rt/left History of colonoscopy History of ear surgery LEFT MASTOIDECTOMY (DEAF IN LEFT EAR) History of tonsillectomy History of tooth extraction History of total knee replacement RT S/P cholecystectomy Family History Son Colon cancer Coronary heart disease Sister Hypothyroidism Lymphoma Stroke Mother Aortic aneurysm Diabetes Father Heart disease Myocardial infarction Sister Liver problem Other Hypertension Denies family history of Ovarian cancer Prostate cancer Breast cancer Social History Smoking Status: Former smoker Tobacco Type: Cigarettes Age Started Using Tobacco: 16; Age Quit Using Tobacco: 39; packs per day: 5; Second Hand Exposure: No; Hx Alcohol Use: Yes Hx Substance Use: No Preferred Language: Icelandic Communication Ability: Effective Visual Impairment: No Limitations Hearing Ability: Use of Hearing Aid Negative Cutter Required: No Beliefs That Will Affect Care: None marital status: Current Living Situation: Spouse current occupational status: retired current occupation: retired from career [employer] How many Children do You have: 3 Feels Safe at Home: Yes Safety Concerns: Feels Safe At This Time Childhood Exposure to Second-Hand Smoke: No caffeine: No during the past year weight has: remained stable Dental Care, Regularly: Yes Physical Activity Frequency: Does not Exercise Seatbelt Use: always Sunscreen Use: No Assistive Devices: Oxygen - Continuous Review of Systems 2 Review of Systems: Denies current fever, chills, headache, changes in vision, hearing, taste, and smell, chest pain,abdominal pain, nausea, vomiting, diarrhea, hematemesis, melena, dysuria, hematuria, and recent falls. All systems have been reviewed and are otherwise negative. Physical Exam Physical Exam: Physical Exam: General: In no acute distress, stated age, malnourished, chronically ill- appearing HEENT: Normocephalic, atraumatic, no scleral icterus, currently with Bipap mask in place, trachea midline, +JVD Chest/Pulm: No respiratory distress, symmetrical chest expansion, decreased breath sounds in the BL lower lung sanches, expiratory wheezing noted in the upper lung sanches Cardiac: RRR, no murmurs noted Abdomen: Negative for ascites and bruising, normoactive bowel sounds, soft, non-tender to palpation throughout Musculoskeletal: Symmetrical and without signs of acute trauma, upper and lower extremities with full ROM, no atrophy, spasticity, or flaccidity Extremities: Radial, dorsalis pedis, and posterior tibial pulses are intact and symmetrical, 2+ edema noted in the BL LE's Skin: Warm, dry, no rashes , lesions, or scars noted Neuro: Alert and oriented to person, place, month, year, and president, no focal defects, CN II-XII tested and intact, finger to nose test negative, no tremors noted Psych: No acute distress, calm and cooperative during the exam Results & Data Results & Data ([facility]) Vital Signs (Past 12 Hours) Vital Signs Temp Pulse Pulse Resp BP BP Pulse Ox 06/10/22 16:32 92 06/10/22 16:29 68 18 96 06/10/22 16:17 62 21 97 06/10/22 16:00 73 22 191/104 H 96 06/10/22 15:54 94 06/10/22 15:18 36.6 C 71 24 156/86 H 87 L O2 Del Method O2 Flow Rate FiO2 06/10/22 16:32 Oxymask, BiPAP 9 06/10/22 16:29 30 06/10/22 16:17 40 06/10/22 16:00 BiPAP 06/10/22 15:54 Oxymask 9 06/10/22 15:18 Nasal Cannula 2 Laboratory Results Abnormal lab results 06/10/22 06/10/22 06/10/22 Range/Units 15:45 15:45 15:45 MCHC 30.7 L (32.0-36.0) g/dL RDW Std Deviation 54.2 H (36.4-46.3) fL RDW Coeff of Liam 14.7 H (11.5-14.5) % Lymph # (Auto) 1.02 L (1.2-3.4) K/uL Immature Gran # (Auto) 0.04 H (0.00-0.02) K/uL Carbon Dioxide 38 H (21-32) mmol/L BUN 44 H (6-23) mg/dl Creatinine 1.80 H (0.6-1.4) mg/dl BUN/Creatinine Ratio 24.4 H (10-20) Glucose 113 H (70-99(Fasting)) mg/dl Total Bilirubin 1.1 H (0.2-1.0) mg/dl Alkaline Phosphatase 180 H (34-104) U/L Troponin I High Sens 42.6 H (0-20) pg/ml B-Natriuretic Peptide 1096 H (0-100) pg/ml Diagnostic Findings Chest X-Ray 06/10/22 15:43 XR chest 1V portable CLINICAL HISTORY: Chest Pain TECHNIQUE: Single frontal radiograph of the chest was obtained. Comparison: Comparison is made to chest radiograph 04/07/2022 FINDINGS: No lines and tubes are seen. The aorta is tortuous. The remainder of the cardiomediastinal silhouette is unremarkable. Bilateral lower lung predominant airspace opacities are seen. Bilateral pleural effusions are seen. IMPRESSION: 1. Cardiomegaly is noted. There is mild pulmonary congestion but no teresita edema. 2. Small bilateral pleural effusions are seen with bibasilar airspace opacities, similar to prior exam. ACT 112: Negative or not required by law. Electronically signed by: Saturnino Parra M.D. 06/10/2022 4:26 PM ECG Additional Comments: Atrial fibrillation Right superior axis deviation Inferior infarct , age undetermined Anteroseptal infarct (cited on or before 24-MAR-2018) Abnormal ECG When compared with ECG of 08-APR-2022 09:07, Inferior infarct is now Present QT has shortened Code Status & VTE Plan Code Status Full code VTE Prophylaxis Plan VTE Prophylaxis will be ordered: Yes Supervising Physician Co-Signing Physician Notes I personally saw and examined the patient. I verified all pemberton points and agree with Gerry Madden PA-C with the following exceptions and/or additions: 81 year old male presents to the ER with shortness of breath. He reports progressively worsening over days. He reports after his recent discharge from [facility] his torsemide dose was reduced to 20mg although discharge summary reports he should be taking three 20mg tablets twice a day and no changes were made therefore suspect confusion about his dosing led to acute congestive heart failure. O/E HS1+2, no murmurs, irregular rhythm, regular rate, reduced breath sounds up to mid zone on back, absent at bases, no wheezing or crackles, Abdo SNT, pitting edema 3+ b/l equal to abdomen. A/P Acute on chronic congestive heart failure with preserved ejection fraction - suspected exacerbation due to taking less diuretics by accident. No need to repeat TTE (most recently done in December 2021). Lasix 80mg IV BID. Nitro 2 inch paste - consider switching back to his usual ISMN tomorrow. Consult [facility] [place] [place] CHF clinic. Respiratory acidosis - discussed BiPAP settings with Gerry Madden PA-C, improving on latest ABG. Will continue on BiPAP overnight. COPD - not suspected to have an exacerbation PG Care Time/CCT Total # of Minutes Spent Total Time Spent with Patient: Total time spent is greater than 50% in coordination of care (as documented) at patient's floor/unit and/or counseling patient: [place] [address] Initial Inpt Care Lvl 3 Patient Type Established Medical Decision Making High Complexity Diagnoses Acute and chronic respiratory failure with hypoxia J96.21 Elevated troponin I level R77.8 CVA (cerebral vascular accident) I63.9 COPD (chronic obstructive pulmonary disease) J44.9 Hypothyroidism E03.9 Hypothyroidism type: acquired Permanent atrial fibrillation I48.2 TAMIKA (obstructive sleep apnea) G47.33 Hypertension I10 Acute on chronic diastolic CHF (congestive heart failure) I50.33 Diabetes mellitus type 2, controlled, with complications E11.8 Liver mass R16.0 Anxiety F41.9 (1) Hypothyroidism Hypothyroidism type: acquired Qualified Code(s): E03.9 - Hypothyroidism, unspecified
[2022-06-10] MEDS ORDERED: FUROSEMIDE 40 MG/4 ML VIAL IV STA (17:07)
[2022-06-10] MEDS ORDERED: GLUCAGON FOR INJ 1 MG VIAL SQ PRN (18:20)
[2022-06-10] MEDS ORDERED: GLUCOSE 40% GEL 15 GM TUBE PO PRN (18:20)
[2022-06-10] MEDS ORDERED: GLUCOSE 10 TAB/TUBE PO PRN (18:20)
[2022-06-10] MEDS ORDERED: IPRATROPIUM BROMIDE/ALBUTEROL respimat INH INH PRN (18:20)
[2022-06-10] MEDS ORDERED: DEXTROSE 50% 50 ML SYRINGE IV PRN (18:20)
[2022-06-10] MEDS ORDERED: CARBOHYDRATES FOR HYPOGLYCEMIA PO PRN (18:20)
[2022-06-10] MEDS: INSULIN ASPART PER UNIT SC SCH (19:08)
[2022-06-10 20:07] LABS: iSTAT Allen Test Pass; iSTAT Art Bld Gas pCO2 Correct 66 mmHg (35-46); iSTAT Art Bld Gas pH Corrected 7.343 (7.35-7.45); iSTAT Arterial Blood Gas HCO3 36 meg/L (19-24); iSTAT Arterial Blood Gas pCO2 64 mmHg (35-46); iSTAT Arterial Blood Gas pH 7.35 (7.35-7.45); iSTAT Arterial Blood Gas pO2 70 mmHg (80-95); iSTAT Arterial Blood Gas pO2 C 72; iSTAT Carbon Dioxide 37 mmol/L (24-31); iSTAT FiO2 30 %; iSTAT Hematocrit 42 % (42-52); iSTAT Hemoglobin 14.3 g/dl (14.0-18.0); iSTAT Potassium 3.7 mmol/L (3.3-5.0); iSTAT Site L Radial; iSTAT Sodium 147 mmol/L (135-144)
[2022-06-10] MEDS ORDERED: LANTUS PER UNIT CHARGE SQ SCH (21:00)
[2022-06-10] MEDS: POTASSIUM CHLORIDE CRTAB 20 MEQ TABCR PO SCH (21:50)
[2022-06-10] MEDS: APIXABAN 5 MG TABLET PO SCH (21:51)
[2022-06-10] MEDS: ATORVASTATIN 40 MG TAB PO SCH (21:52)
[2022-06-10] MEDS: GABAPENTIN 100 MG CAP PO SCH (21:52)
[2022-06-11] MEDS: INSULIN ASPART PER UNIT SC SCH ×6 (00:37→21:26)
[2022-06-11] MEDS: NITROGLYCERIN 2% OINTMENT 30GM TUBE EXT SCH ×5 (00:58→18:10)
[2022-06-11] MEDS: LEVOTHYROXINE SODIUM 75 MCG TABLET PO SCH (06:13)
[2022-06-11 07:22] LABS: Hematocrit (blood only) 45.6 % (40.1-51.0); Mean Corpuscular Hemoglobin 31.3 pg (25.0-34.0); Mean Corpuscular Hgb Conc 30.7 g/dL (32.0-36.0); Mean Corpuscular Volume 101.8 fL (80.0-100.0); Mean Platelet Volume 11.2 fL (9.4-12.4); Platelet Count 193 K/uL (130-400); RDW Coefficient of Variation 14.7 % (11.5-14.5); RDW Standard Deviation 55.3 fL (36.4-46.3); Red Blood Count 4.48 M/uL (4.63-6.08); White Blood Count 7.86 K/ul (4.8-10.8)
[2022-06-11 07:54] LABS: Albumin Level 3.4 gm/dl (3.4-5.0); Bilirubin,Total 1.5 mg/dl (0.2-1.0); Calcium 9.3 mg/dl (8.5-10.1); Creatinine Clr Calc Pharmacy 43.3 ml/min; Est GFR (African American) 44.1 ml/min; Est GFR (Non-African American) 38.1 ml/min; Globulin 3.4 gm/dl (2.5-4.0); Total Protein 6.8 gm/dl (6.0-8.3)
[2022-06-11] MEDS ORDERED: PHARMACY GLYCEMIC MGMT CONSULT PRN (07:59)
[2022-06-11] MEDS: FUROSEMIDE 40 MG/4 ML VIAL IV SCH ×3 (08:48→21:01)
[2022-06-11] MEDS: APIXABAN 5 MG TABLET PO SCH ×2 (08:48→20:59)
[2022-06-11] MEDS: allopurinoL 300 MG TAB PO SCH (08:48)
[2022-06-11] MEDS: CHOLECALCIFEROL 1,000 UNITS 25 MCG TAB PO SCH (08:49)
[2022-06-11] MEDS: ISOSORBIDE MONO EXTENDED REL 60 MG TABCR PO SCH (08:49)
[2022-06-11] MEDS: MULTIVITAMIN TAB PO SCH (08:49)
[2022-06-11] MEDS: GABAPENTIN 100 MG CAP PO SCH ×2 (08:49→21:00)
[2022-06-11] MEDS: METOPROLOL SUCC 50MG EXT REL TAB PO SCH (08:49)
[2022-06-11] MEDS: POTASSIUM CHLORIDE CRTAB 20 MEQ TABCR PO SCH ×2 (08:50→21:01)
--- NOTE | 2022-06-11 09:51 | Pharmacy Report ---
Pharmacy Glycemic Short Note 2 - Date of Service June 11, 2022 - Glycemic Short BSG Results (Last 24 hours): 06/10/22 06/10/22 06/10/22 15:45 18:32 20:40 Glucose 113 H POC Glucose 92 82 06/11/22 06/11/22 06/11/22 00:33 06:11 06:55 Glucose 87 POC Glucose 78 88 06/11/22 08:49 Glucose POC Glucose 111 H OUTPATIENT ANTIDIABETIC REGIMEN: * Novolog 70/30 - 15 units BID ASSESSMENT: * 81 year old male admitted with acute on chronic respiratory failure. NPO yesterday, type 2 DM diet today. * Patient received 5 units basal last night, blood sugars below goal range, will hold basal at this time and only use CF/CR until blood sugars trend above goal range. PLAN FOR INPATIENT GLYCEMIC CONTROL: * Basal insulin * hold at this time, 8 units HS for BSG > 180 * Bolus insulin * NovoLog per scale ACHS or Q6hrs while NPO * Goal Range: Low 110 mg/dL - High 140 mg/dL * Correction Factor: 40 mg/dL/unit * Nutritional / Prandial insulin per carb ratio of 1 unit per 15 grams CHO consumed
--- NOTE | 2022-06-11 11:06 | Heart Failure Consultation ---
Date of Consultation June 11, 2022 Assessment & Plan (1) Acute on chronic heart failure with preserved ejection fraction (HFpEF): (2) Acute and chronic respiratory failure with hypoxia: (3) COPD (chronic obstructive pulmonary disease): (4) Permanent atrial fibrillation: (5) TAMIKA (obstructive sleep apnea): (6) Lower extremity edema: Plan 1. HFpEF: He is hypervolemic on exam today. His symptoms are improved from yesterday but still not at baseline. His weight is below baseline but a bed weight. Would recommend standing scale weights during hospitalization. His volume status has been tenuous in recent months. His Metolazone was discontinued due to FRANK. He was prescribed Torsemide 60 mg BID but was likely only taking 20 mg BID after discharge due to a miscommunication. Kidney function and electrolytes stable on today's labs. Creatinine is actually at the low end of his recent baseline. Would continue to optimize his volume status. Continue Lasix 80 mg IV BID with a goal of negative 1-2L per day. Currently no I&Os documented. Recommend documenting moving forward and patient/nursing staff are aware. Continue daily weights- STANDING weights only. Continue low sodium diet. 2. Idiopathic cardiomyopathy: Normal coronary arteries. Most recent echocardiogram shows normal LV systolic function. He is on an appropriate medical therapy. Continue Metoprolol 200 mg daily. Lisinopril discontinued in December 2021 hospitalization due to FRANK. He does not currently qualify for an ICD. 3. Hypertension: Currently hypertensive. Continue to optimize volume status. 4. Atrial fibrillation: Heart rate appears adequately controlled and he is asymptomatic. Continue anticoagulation for stroke risk reduction. Eliquis dose increased to 5 mg BID recently. Kidney function improved so at this time dosing is appropriate. 5. TAMIKA: Does not tolerate CPAP at home. He did well on the BiPAP last night. Encourage compliance at home. Consider different masks if not already attempted. 6. Pulmonary hypertension: Moderate on 12/2021 echo. Optimize. Consider repeat echo once stable. Disposition: Will continue to follow during hospitalization. Anticipate close outpatient follow up with the heart failure program. History of Present Illness Attending Physician: Maribel Lima DO History of Present Illness Mr. Olvera is a 81 year old male with a medical history significant for resolved idiopathic cardiopathy (EF 55-60% by echo 02/2018, up from 25-30% 09/06), normal coronary arteries, chronic diastolic CHF, chronic atrial fibrillation anticoagulated with Pradaxa, chronic type B aortic dissection, insulin dependent diabetes mellitus, CKD and CML who was recently admitted for CVA at [facility]. Dr. Wolf is his primary counterperson. He is well known to the [facility] [place] failure program and follows regularly. Last visit was 03/2022. He was euvolemic at that time with stable symptoms. He continued Torsemide via weight based sliding scale. Dry weight typically between 250-260 lb. Weight torsemide dose >260 80 mg BID 255-260 60 mg BID 250-255 40 mg BID <250 Skip dose Recent cardiac studies: 1. 01/02/22 Echo: Normal LV size/function. EF 55-60%. No RMWA. Mild concentric LVH. Normal RV size with mildly reduced systolic function. Severe left atrial dilation. Sclerotic aortic valve with mild regurg. Mild MR. Moderate pulm. hypertension. RVSP 55 mmHg. Patient was recently hospitalized at [facility] after suffering stroke like symptoms at [place]. Brain MRI concerning for embolism. Eliquis increased to 5 mg BID. He was denied insurance approval for [facility] and was discharged to home. Patient was evaluated by PCP for hospital follow up. He was having increasing dyspnea and hypoxia. CXR was done and patient was referred to the ED for evaluation. CXR with bilateral pleural effusions. BNP 8000. He was transitioned to BiPAP. Patient reports feeling significantly better this morning. He has been transitioned back to the Oxymask. He continues to have some mild dyspnea with conversation but is able to carry on. O2 sats improving. He did not sleep well, mainly due to the mask and other distractions. He is having moderate lower ext remity edema. There is no I&Os data available. Weight is 240 lb per the bed scale. He denies chest pain, lightheadedness, or palpitations. Telemetry reviewed- afib in the 60s with occasional couplets. Allergies Allergy/AdvReac Type Severity Reaction Status Date / Time morphine Allergy Intermediate DELUSIONS, Verified 06/10/22 16:43 "LOSES TIME" adhesive Allergy Mild RASH Verified 06/10/22 16:43 latex AdvReac Intermediate BLISTERS Verified 06/10/22 16:43 SKIN Home Medications Medication Instructions Recorded Confirmed Type multivitamin (Daily Multi-Vitamin 1 tab PO DAILY 01/20/19 06/10/22 History tablet) cholecalciferol (vitamin D3) 50 2,000 unit PO DAILY ##0 03/01/19 06/10/22 History mcg (2,000 unit) capsule One Touch Ava Meter Kit #1 ea 02/13/21 05/21/22 Rx pen needle, diabetic 31 gauge x #100 ea 02/13/21 05/21/22 Rx 3/16" (BD Ultra-Fine Mini Pen Needle) ipratropium 20 mcg-albuterol 100 2 puff inhalation Q6H PRN 03/05/21 06/10/22 Rx mcg/actuation mist for inhalation sob/wheezing #4 grams (Combivent Respimat) lancets 33 gauge (OneTouch Delica #100 ea 04/02/21 05/21/22 Rx Lancets) blood sugar diagnostic (OneTouch #100 ea 08/12/21 05/21/22 Rx Verio test strips) allopurinol 300 mg tablet 300 mg PO QAM #90 tabs 10/10/21 06/10/22 Rx gabapentin 100 mg capsule 100 mg PO AMPM 01/14/22 06/10/22 History isosorbide mononitrate 120 mg 120 mg PO QAM #90 tabs 01/15/22 06/10/22 Rx tablet,extended release 24 hr levothyroxine 50 mcg tablet 50 mcg PO .COMPLEX #45 tabs 02/13/22 06/10/22 Rx levothyroxine 75 mcg tablet 75 mcg PO .COMPLEX #45 tabs 02/13/22 06/10/22 Rx potassium chloride 20 mEq 40 meq PO BID #360 tabs 03/10/22 06/10/22 Rx tablet,extended release metoprolol succinate 200 mg 200 mg PO QAM #90 tabs 04/07/22 06/10/22 Rx tablet,extended release 24 hr insulin aspar prot-insulin aspart 15 unit (0.15 mL) subcut AMPM #15 04/18/22 06/10/22 Rx 100 unit/mL (70-30) subcutaneous mL pen Portable Oxygen #1 ea 05/21/22 Rx apixaban 5 mg tablet 5 mg PO BID #60 tabs 05/21/22 06/10/22 Rx atorvastatin 40 mg tablet 40 mg PO QPM #30 tabs 05/21/22 06/10/22 Rx portable oxygen concentrator #1 ea 05/26/22 Rx lorazepam 0.5 mg tablet 0.5 mg PO HS PRN Sleep 06/10/22 06/10/22 History mirtazapine 7.5 mg tablet 7.5 mg PO HS 06/10/22 06/10/22 History torsemide 20 mg tablet 60 mg PO BID 06/10/22 06/10/22 History Patient History Medical History (Updated 06/11/22 @ 11:15 by Blanca Aguirre PA-C) Allergic rhinitis Arthritis BPH (benign prostatic hyperplasia) Cardiomyopathy Chronic kidney disease, stage 3 Chronic obstructive pulmonary disease Claustrophobia Congestive heart failure [facility] COPD (chronic obstructive pulmonary disease) Diabetic nephropathy associated with type 2 diabetes mellitus Hearing deficit 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 YEAR 10 YEARS AGO History of bronchoscopy History of cardiac cath NO STENTS History of cataract surgery rt/left History of colonoscopy History of ear surgery LEFT MASTOIDECTOMY (DEAF IN LEFT EAR) History of tonsillectomy History of tooth extraction History of total knee replacement RT S/P cholecystectomy Family History Son Colon cancer Coronary heart disease Sister Hypothyroidism Lymphoma Stroke Mother Aortic aneurysm Diabetes Father Heart disease Myocardial infarction Sister Liver problem Other Hypertension Denies family history of Ovarian cancer Prostate cancer Breast cancer Social History Smoking Status: Former smoker Tobacco Type: Cigarettes Age Started Using Tobacco: 16; Age Quit Using Tobacco: 39; packs per day: 5; Second Hand Exposure: No; Hx Alcohol Use: Yes Hx Substance Use: No Preferred Language: Cypriot Communication Ability: Effective Visual Impairment: No Limitations Hearing Ability: Use of Hearing Aid Apigee Developer Required: No Beliefs That Will Affect Care: None marital status: Current Living Situation: Spouse current occupational status: retired 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 Oxymask. HEENT: Head is atraumatic and normocephalic. EOMs intact. Sclera anicteric. Face is symmetric. No perioral cyanosis. Mucous membranes moist. Mild periorbital edema noted Neck: Supple, JVD correction to the mandible at 30 degrees, no carotid bruits. - HJR Pulmonary: Slightly increased respiratory effort, decreased breath sounds at the bases, faint crackles. Cardiac: Irregularly irregular, normal S1 and S2, no gallops, no rubs, no murmurs Extremities: No clubbing or cyanosis. Pulses intact. 2+ edema to the knees. Abdomen: Normal bowel sounds, soft, non-tender, no abdominal mass palpated Skin: Chronic venous stasis skin changes of bilateral lower extremities. No rash Neurological: Oriented to person, place, and time Results & Data ([facility]) Vital Signs (Past 12 Hours) Vital Signs Temp Pulse Resp BP Pulse Ox O2 Del Method O2 Flow Rate 06/11/22 07:06 97.5 F L 67 20 192/81 H 92 Oxymask 06/11/22 02:48 97.9 F 63 18 178/68 H 96 Oxymask 3 06/10/22 23:24 Oxymask 3 06/10/22 23:09 97.5 F L 61 20 182/82 H 97 Oxymask 3 Coding Level of Care Code 39466 Initial Inpt Care Lvl 3 Diagnoses Acute on chronic heart failure with preserved ejection fraction (HFpEF) I50.33 Acute and chronic respiratory failure with hypoxia J96.21 COPD (chronic obstructive pulmonary disease) J44.9 Permanent atrial fibrillation I48.2 TAMIKA (obstructive sleep apnea) G47.33 Lower extremity edema R60.0
--- NOTE | 2022-06-11 11:48 | Electrocardiogram Report ---
Test Reason : Blood Pressure : / mmHG Vent. Rate : 076 BPM Atrial Rate : 059 BPM P-R Int : 000 ms QRS Dur : 078 ms QT Int : 376 ms P-R-T Axes : 000 268 038 degrees QTc Int : 423 ms Atrial fibrillation Right superior axis deviation Old Anteroseptal infarct (cited on or before 24-MAR-2018) Abnormal ECG When compared with ECG of 08-APR-2022 09:07, No significant change Confirmed by Louis Wolf ([id number]) on 06/11/2022 11:48:38 AM Referred By: REFERRED SELF Confirmed By:Louis Wolf
--- NOTE | 2022-06-11 11:49 | Electrocardiogram Report ---
Test Reason : Blood Pressure : / mmHG Vent. Rate : 069 BPM Atrial Rate : 394 BPM P-R Int : 000 ms QRS Dur : 096 ms QT Int : 442 ms P-R-T Axes : 000 -72 075 degrees QTc Int : 473 ms Atrial fibrillation Left axis deviation Incomplete right bundle branch block Old Anterolateral infarct (cited on or before 24-MAR-2018) Nonspecific T wave abnormality Lateral leads Abnormal ECG When compared with ECG of 10-JUN-2022 15:35, No significant change Confirmed by Louis Wolf ([id number]) on 06/11/2022 11:49:15 AM Referred By: REFERRED SELF Confirmed By:Louis Wolf
--- NOTE | 2022-06-11 14:25 | Hospitalist Progress Note ---
Date of Service June 11, 2022 Assessment & Plan (1) Acute and chronic respiratory failure with hypoxia: Plan: Presented to the ER with worsening shortness of breath over the last several days with oxygen needs as high as 9 L; down to 4 L by nasal cannula this af ternoon. Chest x-ray with mild pulmonary congestion and small bilateral pleural effusions. Due to miscommunication patient was only taking torsemide 20 mg twice daily at home (discharge instructions from recent admission recommend 60 mg twice daily). Continue Lasix 80 mg IV twice daily with a goal output of 1 to 2 L. Strict intake and output and daily standing weights. Heart failure clinic consulted and appreciate recommendations. (2) Elevated troponin I level: Plan: -Initial troponin 42.6 -> 36.4. -Multifactorial with demand ischemia and decreased clearance (due to CKD). -No acute ECG changes noted when compared to his last ECG, elevated troponin likely related to demand -Patient denies chest pain and pressure -Will obtain another troponin with his repeat ABG to ensure levels plateau -Continue to monitor on tele (3) CVA (cerebral vascular accident): Plan: -Was hospitalized last month for this. -Continue increased Eliquis level at 5 mg BID for atrial fibrillation; dose was increased due to improvement in renal function. -Continue atorvastatin. (4) COPD (chronic obstructive pulmonary disease): Plan: -Continue ipratropium-albuterol. -Incentive spirometry, flutter therapy. -Goal SpO2 between 88-92%, wean back to home O2 of 2-3L NC (5) Hypothyroidism: Plan: -Continue levothyroxine (6) Permanent atrial fibrillation: Plan: -Continue Eliquis, metoprolol Patient is rate controlled in the 70s. Telemetry for cardiac monitoring. (7) TAMIKA (obstructive sleep apnea): Plan: -Does not use CPAP as he is claustrophobic, however did tolerate BiPAP last night. We will trial use of CPAP while admitted and if tolerating can try to set up on discharge. (8) Hypertension: Plan: -Continue metoprolol and Imdur. -Patient placed on 2 inches of nitro paste in the ED for hypertension with systolics in the 190's. Currently improved to 178/92. Will continue 2 inches of nitro paste with order comments and separate communication to [place] for systolic BP less than 120 mmHg; this was discontinued in favor of diuresis. -Can consider hydralazine as needed for systolic blood pressures greater than 180. (9) Diabetes mellitus type 2, controlled, with complications: Plan: -Normally on 70/30 at home Hold basal insulin unless blood sugars greater than 180. Sliding scale insulin coverage ordered. A1c 6.0% in March of this year. (10) Liver mass: Plan: -Previously found on prior admissions. -Per his latest PCP note his scheduled outpatient liver biopsy with GI was cancelled due to recent stroke. -Is supposed to get outpatient MRI of the liver. -Liver function currently stable . (11) Anxiety: Plan: - Resume Remeron nightly. -Patient is on Ativan nightly as needed; will continue this given improvement in respiratory status. Admission and Anticipated Discharge Date Admission Date: June 10, 2022 Subjective No acute events overnight. Patient reports that his breathing is much better today as compared to yesterday. He is down to 4 L by nasal cannula which is significant decreased from day of admission. He is desirous of rehab placement following discharge for strengthening, as he reports that while he has had home health in the past following discharge as it has not been as effective as when he was at [facility] following a surgery in the past. Review of Systems Constitutional: no fever and no chills Respiratory: + dyspnea (Improved from yesterday); no cough Cardiovascular: no chest pain and no palpitations Gastrointestinal: no abdominal pain, no nausea and no vomiting Physical Exam Constitutional: WD/WN, vitals as above Respiratory: Faint crackles at bases Saturating to 94% on 4LNC Cardiovascular: Heart rate irregularly irregular no murmurs, 2+ pitting edema to the level of the knee Gastrointestinal (Abdomen): normal bowel sounds, soft, nontender, no hepatosplenomegaly Skin: no rashes, warm and dry Psychiatric: A+Ox3, euthymic affect Results & Data Results & Data ([facility]) Vital Signs (Past 12 Hours) Vital Signs Temp Pulse Resp BP BP Pulse Ox Pulse Ox 06/11/22 09:00 06/11/22 12:20 36.3 C L 60 20 162/77 H 98 06/11/22 11:13 97 06/11/22 07:06 36.4 C L 67 20 192/81 H 92 06/11/22 02:48 36.6 C 63 18 178/68 H 96 O2 Del Method O2 Flow Rate O2 Flow Rate 06/11/22 09:00 Nasal Cannula 3 06/11/22 12:20 Nasal Cannula 3 06/11/22 11:13 3 06/11/22 07:06 Oxymask 06/11/22 02:48 Oxymask 3 PG Care Time/CCT Total # of Minutes Spent Total Time Spent with Patient: Total time spent is greater than 50% in coordination of care (as documented) at patient's floor/unit and/or counseling patient: Coding Level of Care Code 88169 Subseq Hosp Care Lvl 3 Diagnoses Acute and chronic respiratory failure with hypoxia J96.21 Elevated troponin I level R77.8 CVA (cerebral vascular accident) I63.9 COPD (chronic obstructive pulmonary disease) J44.9 Hypothyroidism E03.9 Hypothyroidism type: acquired Permanent atrial fibrillation I48.2 TAMIKA (obstructive sleep apnea) G47.33 Hypertension I10 Diabetes mellitus type 2, controlled, with complications E11.8 Liver mass R16.0 Anxiety F41.9 (1) Hypothyroidism Hypothyroidism type: acquired Qualified Code(s): E03.9 - Hypothyroidism, unspecified
[2022-06-11] MEDS ORDERED: FUROSEMIDE INJ 20 MG/2 ML VIAL IV ONE (16:00)
[2022-06-11] MEDS ORDERED: LORazepam 0.5 MG TAB PO PRN (20:13)
[2022-06-11] MEDS: ATORVASTATIN 40 MG TAB PO SCH (20:59)
[2022-06-11] MEDS: MIRTAZAPINE TAB 15 MG TAB PO SCH (21:00)
[2022-06-11] MEDS: LANTUS PER UNIT CHARGE SQ SCH (21:28)
[2022-06-12] MEDS: LEVOTHYROXINE SODIUM 50 MCG TABLET PO SCH (05:27)
[2022-06-12 07:38] LABS: Hemoglobin 13.3 g/dl (14.0-18.0); Mean Corpuscular Hemoglobin 30.9 pg (25.0-34.0); Mean Corpuscular Hgb Conc 30.2 g/dL (32.0-36.0); Mean Corpuscular Volume 102.1 fL (80.0-100.0); Mean Platelet Volume 11.2 fL (9.4-12.4); Platelet Count 191 K/uL (130-400); RDW Coefficient of Variation 14.7 % (11.5-14.5); RDW Standard Deviation 55.8 fL (36.4-46.3); Red Blood Count 4.31 M/uL (4.63-6.08); White Blood Count 7.11 K/ul (4.8-10.8)
[2022-06-12] MEDS: METOPROLOL SUCC 50MG EXT REL TAB PO SCH (08:02)
[2022-06-12] MEDS: allopurinoL 300 MG TAB PO SCH (08:02)
[2022-06-12] MEDS: CHOLECALCIFEROL 1,000 UNITS 25 MCG TAB PO SCH (08:02)
[2022-06-12] MEDS: MULTIVITAMIN TAB PO SCH (08:03)
[2022-06-12] MEDS: APIXABAN 5 MG TABLET PO SCH ×2 (08:04→21:10)
[2022-06-12] MEDS: POTASSIUM CHLORIDE CRTAB 20 MEQ TABCR PO SCH ×2 (08:04→21:15)
[2022-06-12] MEDS: GABAPENTIN 100 MG CAP PO SCH ×2 (08:04→21:10)
[2022-06-12] MEDS: ISOSORBIDE MONO EXTENDED REL 60 MG TABCR PO SCH (08:04)
[2022-06-12] MEDS: FUROSEMIDE 40 MG/4 ML VIAL IV SCH ×2 (08:05→21:15)
--- NOTE | 2022-06-12 08:08 | Hospitalist Progress Note ---
Date of Service June 12, 2022 Assessment & Plan (1) Acute and chronic respiratory failure with hypoxia: Plan: Presented to the ER with worsening shortness of breath over the last several days with oxygen needs as high as 9 L; down to 4 L by nasal cannula this af ternoon. Due to miscommunication patient was only taking torsemide 20 mg twice daily at home (discharge instructions from recent admission recommend 60 mg twice daily). Chest x-ray with mild pulmonary congestion and small bilateral pleural effusions. Continue Lasix 80 mg IV twice daily with a goal output of 1 to 2 L; consider return to torsemide dosing tomorrow based on renal function. Strict intake and output and daily standing weights. Heart failure clinic consulted and appreciate recommendations. (2) Elevated troponin I level: Plan: -Troponin 42.6 -> 36.4. -Multifactorial with demand ischemia and decreased clearance (due to CKD). -No acute ECG changes noted when compared to his last ECG, elevated troponin lik roselia related to demand . -Patient denies chest pain and pressure . -Will obtain another troponin with his repeat ABG to ensure levels plateau. -Continue to monitor on tele . (3) CVA (cerebral vascular accident): Plan: -Was hospitalized last month for this. -Continue increased Eliquis level at 5 mg BID for atrial fibrillation; dose was increased due to improvement in renal function. -Continue atorvastatin. -Transient episode of dysarthria overnight, lasted a few minutes, normal on my interview today. Stroke recrudescence? (4) Chronic kidney disease, stage 4 (severe): Plan: -Baseline CKD stage G4/A2. Baseline Cr 2.5 w/ EGFR 23 cc/min. -Admission creatinine 1.80 -> 1.95 today. Suspect improved creatinine on admission is due to fluid overload. -Daily BMP while admitted. (5) COPD (chronic obstructive pulmonary disease): Plan: -Continue ipratropium-albuterol. -Incentive spirometry, flutter therapy. -Goal SpO2 between 88-92%, wean back to home O2 of 2-3L NC (6) Hypothyroidism: Plan: -Continue levothyroxine (7) Permanent atrial fibrillation: Plan: -Continue Eliquis, metoprolol Patient is rate controlled in the 70s. Telemetry for cardiac monitoring. (8) TAMIKA (obstructive sleep apnea): Plan: -Does not use CPAP as he is claustrophobic, however did tolerate BiPAP last night. We will trial use of CPAP while admitted and if tolerating can try to set up on discharge. (9) Hypertension: Plan: -Continue metoprolol and Imdur. -Patient placed on 2 inches of nitro paste in the ED for hypertension with systolics in the 190's. Currently improved to 178/92. Will continue 2 inches of nitro paste with order comments and separate communication to [place] for systolic BP less than 120 mmHg; this was discontinued in favor of diuresis. -Can consider hydralazine as needed for systolic blood pressures greater than 180. (10) Diabetes mellitus type 2, controlled, with complications: Plan: -Normally on 70/30 at home . Hold basal insulin unless blood sugars greater than 180. Sliding scale insulin coverage ordered. A1c 6.0% in March of this year. (11) Liver mass: Plan: -Previously found on prior admissions. 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 Findings are suspicious for a primary hepatic malignancy such as hepatocellular carcinoma. -Per his latest PCP note his scheduled outpatient liver biopsy with GI was cancelled due to recent stroke. -Is supposed to get outpatient MRI of the liver. -Liver function currently stable. (12) Anxiety: Plan: -Continue Remeron nightly. -Patient is on Ativan nightly as needed; will continue this given improvement in respiratory status, and do not want to stop benzo given chronic benzo use. Plan - PT and OT consulted; recommending rehab. Referral sent by . - FULL CODE - heart healthy, low sodium, DM2 diet - Med/Tele Admission and Anticipated Discharge Date Admission Date: June 10, 2022 Subjective Overnight patient reported not feeling well when he went to go use the bathroom, with transient difficulty speaking with quick resolution, and on my interview today patient did not have any speech difficulties. Is saturating well on 3 L nasal cannula and has been afebrile overnight. He was able to ambulate in the hallway with nursing on 4 L nasal cannula without issue. He reports that his breathing is slightly better today as compared to yesterday. Review of Systems Constitutional: no fever and no chills Respiratory: + dyspnea (Improved from yesterday); no cough Cardiovascular: no chest pain and no palpitations Gastrointestinal: no abdominal pain, no nausea and no vomiting Physical Exam Constitutional: WD/WN, vitals as above Respiratory: Faint crackles at bases, otherwise clear to auscultation Saturating to 97% on 4LNC Cardiovascular: Heart rate irregularly irregular no murmurs, 2+ pitting edema to the level of the knee Gastrointestinal (Abdomen): normal bowel sounds, soft, nontender, no hepatosplenomegaly Skin: no rashes, warm and dry Neurologic: No focal motor or sensory deficits No facial droop, no aphasia, no dysarthria Psychiatric: A+Ox3, euthymic affect Results & Data Results & Data ([facility]) Vital Signs (Past 12 Hours) Vital Signs Temp Pulse Resp BP Pulse Ox O2 Del Method O2 Flow Rate 06/12/22 07:54 Nasal Cannula 3 06/12/22 02:46 36.5 C 72 18 178/72 H 93 Nasal Cannula 3 06/11/22 23:29 36.7 C 72 18 147/71 H 97 Nasal Cannula 3 06/11/22 23:34 Nasal Cannula 3 PG Care Time/CCT Total # of Minutes Spent Total Time Spent with Patient: Total time spent is greater than 50% in coordination of care (as documented) at patient's floor/unit and/or counseling patient: Coding Level of Care Code 90173 Subseq Hosp Care Lvl 3 Diagnoses Acute and chronic respiratory failure with hypoxia J96.21 Elevated troponin I level R77.8 CVA (cerebral vascular accident) I63.9 Chronic kidney disease, stage 4 (severe) N18.4 COPD (chronic obstructive pulmonary disease) J44.9 Hypothyroidism E03.9 Hypothyroidism type: acquired Permanent atrial fibrillation I48.2 TAMIKA (obstructive sleep apnea) G47.33 Hypertension I10 Diabetes mellitus type 2, controlled, with complications E11.8 Liver mass R16.0 Anxiety F41.9 (1) Hypothyroidism Hypothyroidism type: acquired Qualified Code(s): E03.9 - Hypothyroidism, unspecified
[2022-06-12 08:13] LABS: Albumin Level 3.4 gm/dl (3.4-5.0); BUN Creatinine Ratio 22.1 (10-20); Bilirubin,Total 1.4 mg/dl (0.2-1.0); Calcium 9.4 mg/dl (8.5-10.1); Creatinine Clr Calc Pharmacy 37.1 ml/min; Est GFR (African American) 36.6 ml/min; Est GFR (Non-African American) 31.6 ml/min; Globulin 3.5 gm/dl (2.5-4.0); Potassium 4.7 mmol/L (3.5-5.1); Total Protein 6.9 gm/dl (6.0-8.3)
[2022-06-12] MEDS: INSULIN ASPART PER UNIT SC SCH ×4 (08:49→21:11)
--- NOTE | 2022-06-12 10:09 | Pharmacy Report ---
Pharmacy Glycemic Short Note 2 - Date of Service June 12, 2022 - Glycemic Short BSG Results (Last 24 hours): 06/11/22 06/11/22 06/11/22 11:40 16:31 20:03 Glucose POC Glucose 111 H 85 99 06/12/22 06/12/22 06:50 07:44 Glucose 110 H POC Glucose 101 H OUTPATIENT ANTIDIABETIC REGIMEN: * Novolog 70/30 - 15 units SQ BID * HbA1c: 6% (04/09/22) ASSESSMENT: 06/12/22: * Mr Olvera received 5 units of insulin yesterday, all of which were for carb coverage. * BSGs remain below goal range, but stable. * Will provide small dose of basal insulin at HS, only if BSGs become elevated (>180mg/dL). * No further changes required at this time. 06/11 * 81 year old male admitted with acute on chronic respiratory failure. NPO yesterday, type 2 DM diet today. * Patient received 5 units basal last night, blood sugars below goal range, will hold basal at this time and only use CF/CR until blood sugars trend above goal range. PLAN FOR INPATIENT GLYCEMIC CONTROL: * Basal insulin * Hold at this time * 5 units SQ at HS for BSG > 180 mg/dL * Bolus insulin * NovoLog per scale ACHS or Q6hrs while NPO * Goal Range: Low 110 mg/dL - High 140 mg/dL * Correction Factor: 40 mg/dL/unit * Nutritional / Prandial insulin per carb ratio of 1 unit per 15 grams CHO consumed
[2022-06-12] MEDS: MIRTAZAPINE TAB 15 MG TAB PO SCH (21:09)
[2022-06-12] MEDS: ATORVASTATIN 40 MG TAB PO SCH (21:10)
[2022-06-12] MEDS: LANTUS PER UNIT CHARGE SQ SCH (21:12)
[2022-06-13] MEDS: LEVOTHYROXINE SODIUM 75 MCG TABLET PO SCH (05:52)
[2022-06-13 08:07] LABS: Hematocrit (blood only) 42.5 % (40.1-51.0); Hemoglobin 13.1 g/dl (14.0-18.0); Mean Corpuscular Hgb Conc 30.8 g/dL (32.0-36.0); Mean Corpuscular Volume 100.5 fL (80.0-100.0); Mean Platelet Volume 11.2 fL (9.4-12.4); Platelet Count 191 K/uL (130-400); RDW Coefficient of Variation 14.8 % (11.5-14.5); RDW Standard Deviation 54.1 fL (36.4-46.3); Red Blood Count 4.23 M/uL (4.63-6.08); White Blood Count 6.77 K/ul (4.8-10.8)
[2022-06-13] MEDS: INSULIN ASPART PER UNIT SC SCH ×4 (08:26→23:06)
[2022-06-13 08:32] LABS: Albumin Globulin Ratio 1.1 (0.9-2); Albumin Level 3.5 gm/dl (3.4-5.0); Bilirubin,Total 1.4 mg/dl (0.2-1.0); Calcium 9.4 mg/dl (8.5-10.1); Creatinine Clr Calc Pharmacy 35.4 ml/min; Est GFR (African American) 33.6 ml/min; Globulin 3.3 gm/dl (2.5-4.0); Potassium 4.7 mmol/L (3.5-5.1); Total Protein 6.8 gm/dl (6.0-8.3)
[2022-06-13] MEDS: APIXABAN 5 MG TABLET PO SCH ×2 (08:37→23:02)
[2022-06-13] MEDS: METOPROLOL SUCC 50MG EXT REL TAB PO SCH (08:37)
[2022-06-13] MEDS: ISOSORBIDE MONO EXTENDED REL 60 MG TABCR PO SCH (08:38)
[2022-06-13] MEDS: CHOLECALCIFEROL 1,000 UNITS 25 MCG TAB PO SCH (08:38)
[2022-06-13] MEDS: MULTIVITAMIN TAB PO SCH (08:38)
[2022-06-13] MEDS: allopurinoL 300 MG TAB PO SCH (08:38)
[2022-06-13] MEDS: GABAPENTIN 100 MG CAP PO SCH ×2 (08:38→23:03)
[2022-06-13] MEDS: POTASSIUM CHLORIDE CRTAB 20 MEQ TABCR PO SCH ×2 (08:40→23:49)
[2022-06-13] MEDS: FUROSEMIDE 40 MG/4 ML VIAL IV SCH ×2 (08:40→23:52)
--- NOTE | 2022-06-13 08:48 | Hospitalist Progress Note ---
Date of Service June 13, 2022 Assessment & Plan (1) Acute and chronic respiratory failure with hypoxia: Plan: Presented to the ER with worsening shortness of breath over the last several days with oxygen needs as high as 9 L; down to 4 L by nasal cannula this af ternoon. Due to miscommunication patient was only taking torsemide 20 mg twice daily at home (discharge instructions from recent admission recommend 60 mg twice daily). Chest x-ray with mild pulmonary congestion and small bilateral pleural effusions. Continue Lasix 80 mg IV twice daily with a goal output of 1 to 2 L; will return to torsemide dosing when bump in renal function occurs. Strict intake and output and daily standing weights. Heart failure clinic consulted and appreciate recommendations. (2) Elevated troponin I level: Plan: -Troponin 42.6 -> 36.4. -Multifactorial with demand ischemia and decreased clearance (due to CKD). -No acute ECG changes noted when compared to his last ECG, elevated troponin likely related to demand . -Patient denies chest pain and pressure . -Will obtain another troponin with his repeat ABG to ensure levels plateau. -Continue to monitor on tele . (3) CVA (cerebral vascular accident): Plan: -Was hospitalized last month for this. -Continue increased Eliquis level at 5 mg BID for atrial fibrillation; dose was increased due to improvement in renal function. -Continue atorvastatin. -Transient episode of dysarthria overnight, lasted a few minutes, normal on my interview today. Stroke recrudescence? (4) Chronic kidney disease, stage 4 (severe): Plan: -Baseline CKD stage G4/A2. Baseline Cr 2.5 w/ EGFR 23 cc/min. -Admission creatinine 1.80 -> 2.09 today. Suspect improved creatinine on admission is due to fluid overload. Continue diuresis. -Daily BMP while admitted. (5) COPD (chronic obstructive pulmonary disease): Plan: -Continue ipratropium-albuterol. -Incentive spirometry, flutter therapy. -Goal SpO2 between 88-92%, wean back to home O2 of 2-3L NC. (6) Hypothyroidism: Plan: -Continue levothyroxine . (7) Permanent atrial fibrillation: Plan: - Continue Eliquis, metoprolol. Patient is rate controlled in the 70s. Telemetry for cardiac monitoring. (8) TAMIKA (obstructive sleep apnea): Plan: - Does not use CPAP as he is claustrophobic, however did tolerate BiPAP on day of admission. Unfortunately patient refusing trial of CPAP at this time. (9) Hypertension: Plan: -Continue metoprolol and Imdur. -Patient placed on 2 inches of nitro paste in the ED for hypertension with systolics in the 190's. Currently improved to 178/92. This was discontinued. Continue metoprolol and isosorbide mononitrate. -Hydralazine 5 mg IV every 6 hours as needed for systolic blood pressures greater than 180. (10) Diabetes mellitus type 2, controlled, with complications: Plan: -Normally on 70/30 at home. Hold basal insulin unless blood sugars greater than 180. Sliding scale insulin coverage ordered. Glycemic management consult. A1c 6.0% in March of this year. (11) Liver mass: Plan: -Previously found on prior admissions. 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 Findings are suspicious for a primary hepatic malignancy such as hepatocellular carcinoma. -Per his latest PCP note his scheduled outpatient liver biopsy with GI was cancelled due to recent stroke. -Is supposed to get outpatient MRI of the liver. -Liver function currently stable. (12) Anxiety: Plan: -Continue Remeron nightly. -Patient is on Ativan nightly as needed; will continue this given improvement in respiratory status, and do not want to stop benzo given chronic benzo use. Plan - PT and OT consulted; recommending rehab. Referral sent by CM. Pending acceptance. - FULL CODE - heart healthy, low sodium, DM2 diet - Med/Tele Admission and Anticipated Discharge Date Admission Date: June 10, 2022 Subjective Patient without any acute events overnight. He has no complaints this morning however, nursing reports he has had several episodes of watery diarrhea today. He does not complain of any abdominal pain, nausea, vomiting. Patient is saturating well on 3 L by nasal cannula. Review of Systems Constitutional: no fever and no chills Respiratory: no cough and no dyspnea Cardiovascular: no chest pain and no palpitations Gastrointestinal: no abdominal pain, no nausea and no vomiting Physical Exam Constitutional: WD/WN, vitals as above Respiratory: Clear to auscultation Saturating to 92% on 3LNC Cardiovascular: Heart rate irregularly irregular no murmurs, 2+ pitting edema to the level of the knee Gastrointestinal (Abdomen): normal bowel sounds, soft, nontender, no hepatosplenomegaly Skin: no rashes, warm and dry Neurologic: No focal motor or sensory deficits No facial droop, no aphasia, no dysarthria Psychiatric: A+Ox3, euthymic affect Results & Data Results & Data ([facility]) Vital Signs (Past 12 Hours) Vital Signs Temp Pulse Pulse Pulse Resp BP BP 06/13/22 07:41 36.7 C 64 20 190/75 H 06/13/22 03:33 36.5 C 61 18 161/77 H 06/12/22 22:15 62 06/12/22 23:07 36.5 C 69 20 169/82 H 06/12/22 21:24 Pulse Ox O2 Del Method O2 Flow Rate 06/13/22 07:41 95 Nasal Cannula 3.5 06/13/22 03:33 94 Nasal Cannula 3 06/12/22 22:15 06/12/22 23:07 93 Nasal Cannula 3 06/12/22 21:24 Nasal Cannula 3 PG Care Time/CCT Total # of Minutes Spent Total Time Spent with Patient: Total time spent is greater than 50% in coordination of care (as documented) at patient's floor/unit and/or counseling patient: Coding Level of Care Code 01278 Subseq Hosp Care Lvl 2 Diagnoses Acute and chronic respiratory failure with hypoxia J96.21 Elevated troponin I level R77.8 CVA (cerebral vascular accident) I63.9 Chronic kidney disease, stage 4 (severe) N18.4 COPD (chronic obstructive pulmonary disease) J44.9 Hypothyroidism E03.9 Hypothyroidism type: acquired Permanent atrial fibrillation I48.2 TAMIKA (obstructive sleep apnea) G47.33 Hypertension I10 Diabetes mellitus type 2, controlled, with complications E11.8 Liver mass R16.0 Anxiety F41.9 (1) Hypothyroidism Hypothyroidism type: acquired Qualified Code(s): E03.9 - Hypothyroidism, unspecified
[2022-06-13] MEDS: ATORVASTATIN 40 MG TAB PO SCH (23:03)
[2022-06-13] MEDS: MIRTAZAPINE TAB 15 MG TAB PO SCH (23:03)
[2022-06-13] MEDS: CHOLESTYRAMINE LIGHT 4 GM PKT PO SCH (23:50)
[2022-06-14] MEDS: MIRTAZAPINE TAB 15 MG TAB PO SCH ×2 (01:02→19:58)
[2022-06-14] MEDS: ATORVASTATIN 40 MG TAB PO SCH ×2 (01:03→19:58)
[2022-06-14] MEDS: APIXABAN 5 MG TABLET PO SCH ×4 (01:04→19:56)
[2022-06-14] MEDS: GABAPENTIN 100 MG CAP PO SCH ×4 (01:04→19:57)
[2022-06-14] MEDS: CHOLESTYRAMINE LIGHT 4 GM PKT PO SCH ×4 (01:06→21:03)
[2022-06-14] MEDS: POTASSIUM CHLORIDE CRTAB 20 MEQ TABCR PO SCH ×4 (01:22→19:57)
[2022-06-14] MEDS: LEVOTHYROXINE SODIUM 50 MCG TABLET PO SCH (05:20)
[2022-06-14] MEDS: FUROSEMIDE 40 MG/4 ML VIAL IV SCH ×3 (07:46→21:02)
[2022-06-14] MEDS: METOPROLOL SUCC 50MG EXT REL TAB PO SCH (07:47)
[2022-06-14] MEDS: ISOSORBIDE MONO EXTENDED REL 60 MG TABCR PO SCH (07:47)
[2022-06-14] MEDS: allopurinoL 300 MG TAB PO SCH (07:48)
[2022-06-14] MEDS: MULTIVITAMIN TAB PO SCH (07:48)
[2022-06-14] MEDS: CHOLECALCIFEROL 1,000 UNITS 25 MCG TAB PO SCH (07:48)
--- NOTE | 2022-06-14 07:58 | Pharmacy Report ---
Pharmacy Glycemic Sign Off Nt - Date of Service June 14, 2022 - Assessment & Plan ASSESSMENT: * Pharmacy was consulted by Dr Lima on 06/11/22 for glycemic control and to write orders per [facility] inpatient glycemic control protocol. * Major changes made by pharmacy to antidiabetic regimen include: * addition of Novolog * Initiation and subsequent discontinuation of basal insulin * Patient has been receiving/requiring ~5 units of insulin per day for adequate glycemic control * BSGs ranging 96-131 mg/dl * Regimen has only required minor adjustments over the past 48hrs to achieve this level of control * Do not anticipate further changes in patient status that would quickly deteriorate glycemic control (i.e. patient to be NPO for upcoming procedure, steroids tapering, starting tube feedings, etc). * Please see recommendations for outpatient antidiabetic regimen below. PLAN FOR INPATIENT GLYCEMIC CONTROL: No changes needed to current regimen. * Hold basal insulin * Continue NovoLog per scale ACHS/Q6hrs while NPO * Goal range = 120-150 mg/dl * CF = 40 mg/dl/unit * CR = 1 unit for ever 15 g CHO consumed * Pharmacy is signing off of glycemic consult and will no longer be making adjustments to inpatient regimen. Please feel free to re-consult if needed. Thank you.
[2022-06-14 08:16] LABS: Hemoglobin 13.7 g/dl (14.0-18.0); Mean Corpuscular Hemoglobin 30.9 pg (25.0-34.0); Mean Corpuscular Hgb Conc 31.1 g/dL (32.0-36.0); Mean Corpuscular Volume 99.1 fL (80.0-100.0); Mean Platelet Volume 10.9 fL (9.4-12.4); Platelet Count 184 K/uL (130-400); RDW Coefficient of Variation 14.7 % (11.5-14.5); RDW Standard Deviation 53.8 fL (36.4-46.3); Red Blood Count 4.44 M/uL (4.63-6.08); White Blood Count 7.39 K/ul (4.8-10.8)
[2022-06-14 08:38] LABS: BUN Creatinine Ratio 26.9 (10-20); Calcium 9.4 mg/dl (8.5-10.1); Creatinine Clr Calc Pharmacy 40.6 ml/min; Est GFR (African American) 39.8 ml/min; Est GFR (Non-African American) 34.3 ml/min
[2022-06-14] MEDS: INSULIN ASPART PER UNIT SC SCH ×4 (08:38→21:01)
--- NOTE | 2022-06-14 13:29 | Hospitalist Progress Note ---
Date of Service June 14, 2022 Assessment & Plan (1) Acute and chronic respiratory failure with hypoxia: Plan: Presented to the ER with worsening shortness of breath over the last several days with oxygen needs as high as 9 L; down to 4 L by nasal cannula this af [place]. Due to miscommunication patient was only taking torsemide 20 mg twice daily at home (discharge instructions from recent admission recommend 60 mg twice daily). Chest x-ray with mild pulmonary congestion and small bilateral pleural effusions. Continue Lasix 80 mg IV twice daily with a goal output of 1 to 2 L; will return to torsemide dosing when bump in renal function occurs. Strict intake and output and daily standing weights. Heart failure clinic consulted and appreciate recommendations. - Electrolytes within normal limits despite increased diuresis. (2) Elevated troponin I level: Plan: -Troponin 42.6 -> 36.4. -Multifactorial with demand ischemia and decreased clearance (due to CKD). -No acute ECG changes noted when compared to his last ECG, elevated troponin likely related to demand . -Patient denies chest pain and pressure. -Continue to monitor on tele. (3) CVA (cerebral vascular accident): Plan: -Was hospitalized last month for this. -Continue increased Eliquis dose 5 mg BID for atrial fibrillation; dose was increased due to improvement in renal function. -Continue atorvastatin. -No evidence of new focal neurologic deficits, and brief periods of confusion with redirectability have been noted on previous admissions. (4) Chronic kidney disease, stage 4 (severe): Plan: -Baseline CKD stage G4/A2. Baseline Cr 2.5 w/ EGFR 23 cc/min. -Admission creatinine 1.80 -> 1.82 today. Suspect improved creatinine on admission is due to fluid overload. Continue diuresis. -Daily BMP while admitted. (5) COPD (chronic obstructive pulmonary disease): Plan: -Continue ipratropium-albuterol. -Incentive spirometry, flutter therapy. -Goal SpO2 between 88-92%, is currently at goal supplemental O2 need of 2-3L NC. (6) Hypothyroidism: Plan: -Continue levothyroxine . (7) Permanent atrial fibrillation: Plan: - Continue Eliquis, metoprolol. Patient is rate controlled in the 70s. Telemetry for cardiac monitoring. (8) TAMIKA (obstructive sleep apnea): Plan: - Does not use CPAP as he is claustrophobic, however did tolerate BiPAP on day of admission. Unfortunately patient refusing trial of CPAP at this time. (9) Hypertension: Plan: -Continue metoprolol and Imdur. -Patient placed on 2 inches of nitro paste in the ED for hypertension with systolics in the 190's. Currently improved to 178/92. This was discontinued. Continue metoprolol and isosorbide mononitrate. -Hydralazine 5 mg IV every 6 hours as needed for systolic blood pressures greater than 180. Patient has been on hydralazine 50 mg p.o. 3 times daily in the past, could consider something like this if his pressures continue to be elevated. (10) Diabetes mellitus type 2, controlled, with complications: Plan: -Normally on 70/30 at home. Hold basal insulin unless blood sugars greater than 180. Sliding scale insulin coverage ordered. A1c 6.0% in March of this year. (11) Liver mass: Plan: -Previously found on prior admissions. 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 Findings are suspicious for a primary hepatic malignancy such as hepatocellular carcinoma. -Per his latest PCP note his scheduled outpatient liver biopsy with GI was cancelled due to recent stroke. -Is supposed to get outpatient MRI of the liver. -Liver function currently stable. (12) Anxiety: Plan: -Continue Remeron nightly. -Patient is on Ativan nightly as needed; will continue this given improvement in respiratory status, and do not want to stop benzo given chronic benzo use. Plan - PT and OT consulted; recommending rehab. Referral sent by [facility]. Pending acceptance. - FULL CODE - heart healthy, low sodium, DM2 diet - Med/Tele Admission and Anticipated Discharge Date Admission Date: June 10, 2022 Subjective Patient with some confusion this morning, however on questioning he is alert and oriented to himself, that he is in the hospital, that it is the winter. He knows he is here for his breathing. He is redirectable and his forgetfulness. He has no complaints this morning feels that his breathing is near his baseline. He states that he usually wears around 2 L by nasal cannula at home. Review of Systems Constitutional: no fever and no chills Respiratory: no cough and no dyspnea Cardiovascular: no chest pain and no palpitations Gastrointestinal: no abdominal pain, no nausea and no vomiting Physical Exam Constitutional: WD/WN, vitals as above Respiratory: Clear to auscultation Saturating to 95% on 3LNC Cardiovascular: Heart rate irregularly irregular no murmurs, 1+ pitting edema to the level of the knee Gastrointestinal (Abdomen): normal bowel sounds, soft, nontender, no hepatosplenomegaly Skin: no rashes, warm and dry Neurologic: No focal motor or sensory deficits No facial droop, no aphasia, no dysarthria Psychiatric: A+Ox3, euthymic affect Results & Data Results & Data ([facility]) Vital Signs (Past 12 Hours) Vital Signs Temp Pulse Resp BP BP Pulse Ox O2 Del Method 06/14/22 11:11 36.4 C L 63 20 165/80 H 95 Room Air 06/14/22 07:37 Nasal Cannula 06/14/22 02:51 36.6 C 67 19 165/68 H 97 Nasal Cannula 06/14/22 01:33 Nasal Cannula O2 Flow Rate 06/14/22 11:11 06/14/22 07:37 3 06/14/22 02:51 3 06/14/22 01:33 3 PG Care Time/CCT Total # of Minutes Spent Total Time Spent with Patient: Total time spent is greater than 50% in coordination of care (as documented) at patient's floor/unit and/or counseling patient: Coding Level of Care Code 76102 Subseq Hosp Care Lvl 2 Diagnoses Acute and chronic respiratory failure with hypoxia J96.21 Elevated troponin I level R77.8 CVA (cerebral vascular accident) I63.9 Chronic kidney disease, stage 4 (severe) N18.4 COPD (chronic obstructive pulmonary disease) J44.9 Hypothyroidism E03.9 Hypothyroidism type: acquired Permanent atrial fibrillation I48.2 TAMIKA (obstructive sleep apnea) G47.33 Hypertension I10 Diabetes mellitus type 2, controlled, with complications E11.8 Liver mass R16.0 Anxiety F41.9 (1) Hypothyroidism Hypothyroidism type: acquired Qualified Code(s): E03.9 - Hypothyroidism, unspecified
[2022-06-14] MEDS: hydrALAZINE HCL 20 MG/ML VIAL IV PRN (20:15)
[2022-06-15] MEDS: hydrALAZINE HCL 20 MG/ML VIAL IV PRN (01:44)
[2022-06-15] MEDS: LEVOTHYROXINE SODIUM 75 MCG TABLET PO SCH (05:27)
[2022-06-15 07:56] LABS: Hematocrit (blood only) 39.3 % (40.1-51.0); Hemoglobin 12.2 g/dl (14.0-18.0); Mean Corpuscular Volume 99.7 fL (80.0-100.0); Mean Platelet Volume 11.2 fL (9.4-12.4); Platelet Count 166 K/uL (130-400); RDW Coefficient of Variation 14.7 % (11.5-14.5); RDW Standard Deviation 54.2 fL (36.4-46.3); Red Blood Count 3.94 M/uL (4.63-6.08); White Blood Count 7.31 K/ul (4.8-10.8)
[2022-06-15 08:26] LABS: BUN Creatinine Ratio 25.1 (10-20); Calcium 9.1 mg/dl (8.5-10.1); Creatinine Clr Calc Pharmacy 39.5 ml/min; Est GFR (African American) 39.5 ml/min; Est GFR (Non-African American) 34.1 ml/min; Potassium 3.8 mmol/L (3.5-5.1)
[2022-06-15] MEDS: POTASSIUM CHLORIDE CRTAB 20 MEQ TABCR PO SCH ×2 (08:40→20:04)
[2022-06-15] MEDS: GABAPENTIN 100 MG CAP PO SCH ×2 (08:40→20:04)
[2022-06-15] MEDS: allopurinoL 300 MG TAB PO SCH (08:41)
[2022-06-15] MEDS: METOPROLOL SUCC 50MG EXT REL TAB PO SCH (08:41)
[2022-06-15] MEDS: MULTIVITAMIN TAB PO SCH (08:41)
[2022-06-15] MEDS: ISOSORBIDE MONO EXTENDED REL 60 MG TABCR PO SCH (08:41)
[2022-06-15] MEDS: CHOLECALCIFEROL 1,000 UNITS 25 MCG TAB PO SCH (08:41)
[2022-06-15] MEDS: APIXABAN 5 MG TABLET PO SCH (08:42)
[2022-06-15] MEDS: FUROSEMIDE 40 MG/4 ML VIAL IV SCH ×2 (08:42→20:04)
[2022-06-15] MEDS: INSULIN ASPART PER UNIT SC SCH ×4 (08:48→21:24)
[2022-06-15] MEDS: CHOLESTYRAMINE LIGHT 4 GM PKT PO SCH ×2 (11:25→21:16)
[2022-06-15] MEDS: ACETAMINOPHEN 325 MG TAB PO PRN (16:47)
--- NOTE | 2022-06-15 19:25 | Hospitalist Progress Note ---
Date of Service June 15, 2022 Assessment & Plan (1) Acute on chronic heart failure with preserved ejection fraction (HFpEF): Plan: Presented to the ER with worsening shortness of breath for several days with oxygen needs as high as 9 L; down to 3 L by nasal cannula currently Due to miscommunication patient was only taking torsemide 20 mg twice daily at home (discharge instructions from recent admission recommend 60 mg twice daily). Chest x-ray with mild pulmonary congestion and small bilateral pleural effusions. Improving, I's and O's not accurately recorded but his weight is down and he is clinically somewhat improved Does have some mild hypernatremia He was initially on Lasix 80 mg IV twice daily but this was decreased to 40 Mg IV twice daily on 06/15 Continue Lasix 40 mg IV twice daily; will return to torsemide dosing when bump in renal function occurs. Strict intake and output and daily standing weights. Heart failure clinic consulted and appreciate recommendations. -Of note, he takes potassium chloride 40 mill equivalents p.o. twice daily at home and is on that here-follow potassium closely especially in the setting of CKD stage III -Follow BMP (2) Acute and chronic respiratory failure with hypoxia: Plan: Secondary to heart failure as above Improving almost back to baseline to-3 LNC O2 (3) Hypernatremia: Plan: As above, possibly due to overdiuresis Follow BMP (4) Blister: Plan: Very painful, posterior right calf Likely form secondary to lower extremity edema Pain not controlled with Tylenol-we will add hydrocodone as needed OPTi foam to the wound for now and consult wound care nurse is pending monitor for signs of infection developing but none currently (5) Chronic anemia: Plan: Hemoglobin fairly stable at 12, macrocytic B12 and folate were normal in 12/2021 No iron studies have been checked but seems unlikely given the macrocytosis that he would have iron deficiency TSH normal in 07/2021 Most likely anemia of chronic disease with chronic kidney disease, however also has a known liver mass so may be related to liver disease (6) Anxiety: Plan: -Continue Remeron nightly. -Patient is on Ativan nightly at home but it was ordered as needed here and he did not receive a dose for 4 days straight He finally received 1 dose on the night of 06/14 He is feeling "not quite right on 06/15-suspect could be due to benzodiazepine withdrawal beginning -Make lorazepam 0.5 Mg p.o. nightly scheduled dose -Confirmed in PDMP that he does have this prescribed although it does not seem that he picks it up often enough to take it on a scheduled basis (7) CVA (cerebral vascular accident): Plan: -Was hospitalized last month for this. -Eliquis should be renally dosed at 2.5 Mg p.o. twice daily as he is 81 years old and his creatinine is greater than 1.5-changed this dose today and this will need to be corrected on home medications -Continue atorvastatin. -No evidence of new focal neurologic deficits, and brief periods of confusion with re-directability have been noted on previous admissions. (8) Elevated troponin I level: Plan: -Troponin 42.6 -> 36.4. -Multifactorial with demand ischemia and decreased clearance (due to CKD). -No acute ECG changes noted when compared to his last ECG, elevated troponin likely related to demand . -Patient denies chest pain and pressure. -Continue to monitor on tele. (9) Chronic kidney disease, stage 4 (severe): Plan: -Baseline CKD stage G4/A2. Baseline Cr 2.5 w/ EGFR 23 cc/min. -Admission creatinine 1.80 and remains fairly stable around then at this time suspect improved creatinine on admission is due to fluid overload. Continue diuresis. -Daily BMP while admitted. Avoid nephrotoxins and renally dose medications as indicated Follow urine output (10) COPD (chronic obstructive pulmonary disease): Plan: No acute issues -Continue ipratropium-albuterol. -Incentive spirometry, flutter therapy. -Goal SpO2 between 88-92%, is currently at goal supplemental O2 need of 2-3L NC. (11) Hypothyroidism: Plan: -Continue levothyroxine . TSH normal earlier this year (12) Permanent atrial fibrillation: Plan: - Continue Eliquis, metoprolol. Rates are controlled, is not on telemetry anymore (13) TAMIKA (obstructive sleep apnea): Plan: - Does not use CPAP as he is claustrophobic, however did tolerate BiPAP on day of admission. Unfortunately patient refusing trial of CPAP at this time. (14) Hypertension: Plan: Pressures are mildly elevated -Continue metoprolol and Imdur. -Patient placed on 2 inches of nitro paste in the ED for hypertension with systolics in the 190's. Blood pressures improved and then this was discontinued. -Hydralazine 5 mg IV every 6 hours as needed for systolic blood pressures greater than 180. Patient has been on hydralazine 50 mg p.o. 3 times daily in the past, could consider something like this if his pressures continue to be elevated. (15) Diabetes mellitus type 2, controlled, with complications: Plan: -Normally on 70/30 at home. Hold basal insulin unless blood sugars greater than 180. Sliding scale insulin coverage ordered. A1c 6.0% in March of this year. (16) Liver mass: Plan: -Previously found on prior admissions. 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 Findings are suspicious for a primary hepatic malignancy such as hepatocellular carcinoma. -Per his latest PCP note his scheduled outpatient liver biopsy with GI was cancelled due to recent stroke. -Is supposed to get outpatient MRI of the liver. -Liver function currently stable. Patient will definitely need to follow-up on this after discharge (17) BPH (benign prostatic hyperplasia): Plan: No acute issues, is voiding Not on medications for this Continue to monitor for any lower urinary tract symptoms Plan Disposition- PT and OT consulted; recommending rehab. Insurance denied [facility]. [id number] not completed by myself as he has been repeatedly denied in the past for acute rehab and his insurance physician is notorious for denying rehab stays. Patient and agreeable to referral to long-term facility. Case management is following up on this. He is not yet medically stable for discharge - FULL CODE I discussed his care with his on the phone on 06/15 Admission and Anticipated Discharge Date Admission Date: June 10, 2022 Subjective Patient reports having a lot of pain from a blister on the back of his right calf. Tylenol is not helping. He reports going to wound care for wounds in the past on his legs. Otherwise he reports he is just not quite feeling right. Denies chest pains or shortness of breath, no nausea or vomiting. He is eating. He is making urine. Moving his bowels. He does typically take lorazepam every night and did not get it for the first 4 nights he was here until in the middle of the night last night. Review of Systems Review of Systems: All systems reviewed & are unremarkable except as noted in HPI & below Physical Exam Constitutional: WD/WN, vitals as above + obese Eyes: + anicteric sclerae Some mildly injected conjunctiva, watery discharge bilaterally Neck: trachea midline, no thyromegaly Respiratory: normal respiratory effort; no cough Auscultation: + diminished lung sounds (At the bases bilaterally); no crackles, no rhonchi and no wheezes Cardiovascular: Rate/Rhythm: regular rate and + irregularly irregular Heart Sounds: no murmur Extremities: + edema (1+ pitting edema legs to knees bilat) Chest (Breasts): Chest: normal inspection of chest Gastrointestinal (Abdomen): normal bowel sounds, soft, nontender, no hepatosplenomegaly Musculoskeletal: Extremities: extremities normal to inspection; no cyanosis and no clubbing Skin: + lesion (Unroofed 4 cm blister posterior right calf, minimal surrounding erythema) Neurologic: moves all extremities and awake; no focal motor deficits Psychiatric: A+Ox3, euthymic affect Results & Data Results & Data ([facility]) Vital Signs (Past 12 Hours) Vital Signs Temp Pulse Resp BP Pulse Ox O2 Del Method O2 Flow Rate 06/15/22 15:04 36.6 C 68 18 134/64 95 Nasal Cannula 3 06/15/22 07:30 Nasal Cannula 3 Laboratory Results Labs reviewed PG Care Time/CCT Total # of Minutes Spent Total Time Spent with Patient: Total time spent is greater than 50% in coordination of care (as documented) at patient's floor/unit and/or counseling patient: Coding Level of Care Code 03408 Subseq Hosp Care Lvl 3 Diagnoses Acute on chronic heart failure with preserved ejection fraction (HFpEF) I50.33 Acute and chronic respiratory failure with hypoxia J96.21 Hypernatremia E87.0 Blister T14.8XXA Chronic anemia D64.9 Anxiety F41.9 CVA (cerebral vascular accident) I63.9 Elevated troponin I level R77.8 Chronic kidney disease, stage 4 (severe) N18.4 COPD (chronic obstructive pulmonary disease) J44.9 Hypothyroidism E03.9 Hypothyroidism type: acquired Permanent atrial fibrillation I48.2 TAMIKA (obstructive sleep apnea) G47.33 Hypertension I10 Diabetes mellitus type 2, controlled, with complications E11.8 Liver mass R16.0 BPH (benign prostatic hyperplasia) N40.0 Lower urinary tract symptom presence: symptoms absent (1) BPH (benign prostatic hyperplasia) Lower urinary tract symptom presence: symptoms absent Qualified Code(s): N40.0 - Benign prostatic hyperplasia without lower urinary tract symptoms (2) Hypothyroidism Hypothyroidism type: acquired Qualified Code(s): E03.9 - Hypothyroidism, unspecified
[2022-06-15] MEDS: APIXABAN 2.5 MG TAB PO SCH (20:03)
[2022-06-15] MEDS: HYDROCODONE/ACETAMOPHEN 5/325MG TAB PO PRN (20:08)
[2022-06-15] MEDS: LORazepam 0.5 MG TAB PO SCH (21:14)
[2022-06-15] MEDS: ARTIFICIAL TEARS OP SCH (21:15)
[2022-06-16] MEDS: LEVOTHYROXINE SODIUM 50 MCG TABLET PO SCH (06:02)
[2022-06-16] MEDS: GABAPENTIN 100 MG CAP PO SCH ×2 (08:12→20:23)
[2022-06-16] MEDS: allopurinoL 300 MG TAB PO SCH (08:13)
[2022-06-16] MEDS: MULTIVITAMIN TAB PO SCH (08:13)
[2022-06-16] MEDS: ISOSORBIDE MONO EXTENDED REL 60 MG TABCR PO SCH (08:13)
[2022-06-16] MEDS: METOPROLOL SUCC 50MG EXT REL TAB PO SCH (08:14)
[2022-06-16] MEDS: APIXABAN 2.5 MG TAB PO SCH ×2 (08:14→20:23)
[2022-06-16] MEDS: CHOLECALCIFEROL 1,000 UNITS 25 MCG TAB PO SCH (08:14)
[2022-06-16] MEDS: ARTIFICIAL TEARS OP SCH ×4 (08:16→20:22)
[2022-06-16] MEDS: ALBUTEROL HFA 8 GM INHALER INH PRN (08:22)
[2022-06-16] MEDS: IPRATROPIUM BROMIDE HFA INHALER INH PRN (08:22)
[2022-06-16 08:27] LABS: Calcium 9.4 mg/dl (8.5-10.1); Creatinine Clr Calc Pharmacy 36.9 ml/min; Est GFR (African American) 36.4 ml/min; Est GFR (Non-African American) 31.4 ml/min; Magnesium 2.1 mg/dl (1.7-2.4); Potassium 4.6 mmol/L (3.5-5.1)
[2022-06-16] MEDS: FUROSEMIDE 40 MG/4 ML VIAL IV SCH ×2 (08:45→20:39)
[2022-06-16] MEDS: INSULIN ASPART PER UNIT SC SCH ×4 (08:54→20:39)
[2022-06-16] MEDS: POTASSIUM CHLORIDE CRTAB 20 MEQ TABCR PO SCH (09:33)
[2022-06-16] MEDS: CHOLESTYRAMINE LIGHT 4 GM PKT PO SCH ×2 (10:50→22:34)
[2022-06-16] MEDS: ACETAMINOPHEN 325 MG TAB PO PRN (10:55)
[2022-06-16] MEDS: HYDROCODONE/ACETAMOPHEN 5/325MG TAB PO PRN ×2 (12:21→19:18)
--- NOTE | 2022-06-16 15:07 | Heart Failure Progress Note ---
Date of Service June 16, 2022 Assessment & Plan (1) Acute on chronic heart failure with preserved ejection fraction (HFpEF): (2) Acute and chronic respiratory failure with hypoxia: (3) COPD (chronic obstructive pulmonary disease): (4) Permanent atrial fibrillation: (5) TAMIKA (obstructive sleep apnea): (6) Lower extremity edema: Plan 1. HFpEF: He is hypervolemic on exam today. His symptoms are improved from yesterday but still not at baseline. His weight is below baseline but a bed weight. Would recommend standing scale weights during hospitalization. His volume status has been tenuous in recent months. His Metolazone was discontinued due to FRANK. He was prescribed Torsemide 60 mg BID but was likely only taking 20 mg BID after discharge due to a miscommunication. Kidney function and electrolytes stable on today's labs. Creatinine is actually at the low end of his recent baseline. Would continue to optimize his volume status. Continue Lasix 80 mg IV BID with a goal of negative 1-2L per day. Currently no I&Os documented. Recommend documenting moving forward and patient/nursing staff are aware. Continue daily weights- STANDING weights only. Continue low sodium diet. 2. Idiopathic cardiomyopathy: Normal coronary arteries. Most recent echocardiogram shows normal LV systolic function. He is on an appropriate medical therapy. Continue Metoprolol 200 mg daily. Lisinopril discontinued in December 2021 hospitalization due to FRANK. He does not currently qualify for an ICD. 3. Hypertension: Currently hypertensive. Continue to optimize volume status. 4. Atrial fibrillation: Heart rate appears adequately controlled and he is asymptomatic. Continue anticoagulation for stroke risk reduction. Eliquis dose increased to 5 mg BID recently. Kidney function improved so at this time dosing is appropriate. 5. TAMIKA: Does not tolerate CPAP at home. He did well on the BiPAP last night. Encourage compliance at home. Consider different masks if not already attempted. 6. Pulmonary hypertension: Moderate on 12/2021 echo. Optimize. Consider repeat echo once stable. Disposition: Will continue to follow during hospitalization. Anticipate close outpatient follow up with the heart failure program. Admission and Anticipated Discharge Date Admission Date: June 10, 2022 Subjective Patient evaluated this morning while working with PT. He was able to ambulate a short distance but O2 dropping down to low 80s. O2 increased by therapist and patient recovered to low 90s with deep breathing. He was able to return to bed and reports feeling improvement overall. Nursing reports an episode of wheezing early this am, required increased O2 at that time. Respiratory called for treatments with improvement. Patient returned to his room and was laying flat in his bed. No complaints of orthopnea. Lower extremity edema noted but stable. New wound on the right posterior calf. Wound care to assess today. He denies chest pain, cough, or palpitations. Weight is 240 lb per standing scale today. I&Os inaccurate due to unmeasured voids. Physical Exam Physical Exam: Constitutional: Alert, oriented, in no acute distress. O2 3L HEENT: Head is atraumatic and normocephalic. EOMs intact. Sclera anicteric. Face is symmetric. No perioral cyanosis. Mucous membranes moist. Mild periorbital edema noted Neck: Supple, JVD residential to the mandible at 30 degrees, no carotid bruits. - HJR Pulmonary: Slightly increased respiratory effort, decreased breath sounds at the bases. Cardiac: Irregularly irregular, normal S1 and S2, no gallops, no rubs, no murmurs Extremities: No clubbing or cyanosis. Pulses intact. 2+ edema to the knees. Abdomen: Normal bowel sounds, soft, non-tender, no abdominal mass palpated Skin: Chronic venous stasis skin changes of bilateral lower extremities. No rash Neurological: Oriented to person, place, and time Results & Data ([facility]) Vital Signs (Past 12 Hours) Vital Signs Temp Pulse Resp BP BP Pulse Ox O2 Del Method 06/16/22 07:30 Nasal Cannula 06/16/22 08:23 71 20 92 Nasal Cannula 06/16/22 08:10 69 164/70 H 06/16/22 07:18 97.5 F L 71 20 161/72 H 92 Nasal Cannula O2 Flow Rate 06/16/22 07:30 4 06/16/22 08:23 3 06/16/22 08:10 06/16/22 07:18 3 PG Care Time/CCT Total # of Minutes Spent Total Time Spent with Patient: Total time spent is greater than 50% in coordination of care (as documented) at patient's floor/unit and/or counseling patient: Coding Level of Care Code 60245 Subseq Hosp Care Lvl 3 Diagnoses Acute on chronic heart failure with preserved ejection fraction (HFpEF) I50.33 Acute and chronic respiratory failure with hypoxia J96.21 COPD (chronic obstructive pulmonary disease) J44.9 Permanent atrial fibrillation I48.2 TAMIKA (obstructive sleep apnea) G47.33 Lower extremity edema R60.0
[2022-06-16] MEDS: ATORVASTATIN 40 MG TAB PO SCH (20:23)
[2022-06-16] MEDS: MIRTAZAPINE TAB 15 MG TAB PO SCH (20:23)
--- NOTE | 2022-06-16 20:29 | Hospitalist Progress Note ---
Date of Service June 16, 2022 Assessment & Plan (1) Acute on chronic heart failure with preserved ejection fraction (HFpEF): Plan: Presented to the ER with worsening shortness of breath for several days with oxygen needs as high as 9 L; down to 3 L by nasal cannula currently Due to miscommunication patient was only taking torsemide 20 mg twice daily at home (discharge instructions from recent admission recommend 60 mg twice daily). Chest x-ray with mild pulmonary congestion and small bilateral pleural effusions. Improving, I's and O's not accurately recorded but his weight is down and he is clinically somewhat improved Does have some mild hypernatremia He was initially on Lasix 80 mg IV twice daily but this was decreased to 40 Mg IV twice daily on 06/15 Continue Lasix 40 mg IV twice daily on 06/16; will return to torsemide dosing when bump in renal function occurs. Strict intake and output and daily standing weights. Heart failure clinic consulted and appreciate recommendations. -Of note, he takes potassium chloride 40 mill equivalents p.o. twice daily at home and is on that here-follow potassium closely especially in the setting of CKD stage III -Follow BMP (2) Acute and chronic respiratory failure with hypoxia: Plan: Secondary to heart failure as above Improving almost back to baseline to-3 LNC O2 (3) Hypernatremia: Plan: As above, possibly due to overdiuresis Follow BMP (4) Blister: Plan: Very painful, posterior right calf Likely form secondary to lower extremity edema Pain not controlled with Tylenol-we will add hydrocodone as needed OPTi foam to the wound for now and consult wound care nurse is pending monitor for signs of infection developing but none currently (5) Chronic anemia: Plan: Hemoglobin fairly stable at 12, macrocytic B12 and folate were normal in 12/2021 No iron studies have been checked but seems unlikely given the macrocytosis that he would have iron deficiency TSH normal in 07/2021 Most likely anemia of chronic disease with chronic kidney disease, however also has a known liver mass so may be related to liver disease (6) Anxiety: Plan: -Continue Remeron nightly. -Patient is on Ativan nightly at home but it was ordered as needed here and he did not receive a dose for 4 days straight He finally received 1 dose on the night of 06/14 He is feeling "not quite right on 06/15-suspect could be due to benzodiazepine withdrawal beginning -Make lorazepam 0.5 Mg p.o. nightly scheduled dose -Confirmed in PDMP that he does have this prescribed although it does not seem that he picks it up often enough to take it on a scheduled basis (7) CVA (cerebral vascular accident): Plan: -Was hospitalized last month for this. -Eliquis should be renally dosed at 2.5 Mg p.o. twice daily as he is 81 years old and his creatinine is greater than 1.5-changed this dose today and this will need to be corrected on home medications -Continue atorvastatin. -No evidence of new focal neurologic deficits, and brief periods of confusion with re-directability have been noted on previous admissions. (8) Elevated troponin I level: Plan: -Troponin 42.6 -> 36.4. -Multifactorial with demand ischemia and decreased clearance (due to CKD). -No acute ECG changes noted when compared to his last ECG, elevated troponin likely related to demand . -Patient denies chest pain and pressure. -Continue to monitor on tele. (9) Chronic kidney disease, stage 4 (severe): Plan: -Baseline CKD stage G4/A2. Baseline Cr 2.5 w/ EGFR 23 cc/min. -Admission creatinine 1.80 and remains fairly stable around then at this time suspect improved creatinine on admission is due to fluid overload. Continue diuresis. -Daily BMP while admitted. Avoid nephrotoxins and renally dose medications as indicated Follow urine output (10) COPD (chronic obstructive pulmonary disease): Plan: No acute issues -Continue ipratropium-albuterol. -Incentive spirometry, flutter therapy. -Goal SpO2 between 88-92%, is currently at goal supplemental O2 need of 2-3L NC. (11) Hypothyroidism: Plan: -Continue levothyroxine . TSH normal earlier this year (12) Permanent atrial fibrillation: Plan: - Continue Eliquis, metoprolol. Rates are controlled, is not on telemetry anymore (13) TAMIKA (obstructive sleep apnea): Plan: - Does not use CPAP as he is claustrophobic, however did tolerate BiPAP on day of admission. Unfortunately patient refusing trial of CPAP at this time. (14) Hypertension: Plan: Pressures are mildly elevated -Continue metoprolol and Imdur. -Patient placed on 2 inches of nitro paste in the ED for hypertension with systolics in the 190's. Blood pressures improved and then this was discontinued. -Hydralazine 5 mg IV every 6 hours as needed for systolic blood pressures greater than 180. Patient has been on hydralazine 50 mg p.o. 3 times daily in the past, could consider something like this if his pressures continue to be elevated. (15) Diabetes mellitus type 2, controlled, with complications: Plan: -Normally on 70/30 at home. Hold basal insulin unless blood sugars greater than 180. Sliding scale insulin coverage ordered. A1c 6.0% in March of this year. (16) Liver mass: Plan: -Previously found on prior admissions. 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 Findings are suspicious for a primary hepatic malignancy such as hepatocellular carcinoma. -Per his latest PCP note his scheduled outpatient liver biopsy with GI was cancelled due to recent stroke. -Is supposed to get outpatient MRI of the liver. -Liver function currently stable. Patient will definitely need to follow-up on this after discharge (17) BPH (benign prostatic hyperplasia): Plan: No acute issues, is voiding Not on medications for this Continue to monitor for any lower urinary tract symptoms Plan Disposition- PT and OT consulted; recommending rehab. Insurance denied [facility]. [id number] not completed by myself as he has been repeatedly denied in the past for acute rehab and his insurance physician is notorious for denying rehab stays. Patient and agreeable [facility]. Case management is following up on this. He is not yet medically stable for discharge - FULL CODE I discussed his care with his on the phone on 06/15 Admission and Anticipated Discharge Date Admission Date: June 10, 2022 Subjective Patient reports feeling better. He has no new complaints Review of Systems Review of Systems: All systems reviewed & are unremarkable except as noted in HPI & below Physical Exam Constitutional: WD/WN, vitals as above + obese Eyes: + anicteric sclerae Neck: trachea midline, no thyromegaly Respiratory: normal respiratory effort; no cough Auscultation: + diminished lung sounds (At the bases bilaterally); no crackles, no rhonchi and no wheezes Cardiovascular: RRR, no murmur, no edema Rate/Rhythm: regular rate, regular rhythm and + irregularly irregular Heart Sounds: no murmur Extremities: + edema (1+ pitting edema legs to knees bilat) Chest (Breasts): Chest: normal inspection of chest Gastrointestinal (Abdomen): normal bowel sounds, soft, nontender, no hepatospl enomegaly Musculoskeletal: Extremities: extremities normal to inspection; no cyanosis and no clubbing Skin: no rashes, warm and dry + lesion (Unroofed 4 cm blister posterior right calf, minimal surrounding erythema) Neurologic: moves all extremities and awake; no focal motor deficits Psychiatric: A+Ox3, euthymic affect Lymphatic: no lymphedema Results & Data Results & Data ([facility]) Vital Signs (Past 12 Hours) Vital Signs Temp Pulse Resp BP Pulse Ox O2 Del Method O2 Flow Rate 06/16/22 20:20 36.8 C 71 22 165/70 H 93 Nasal Cannula 3 06/16/22 19:35 Nasal Cannula 06/16/22 15:01 36.4 C L 66 18 125/67 92 Nasal Cannula 3 PG Care Time/CCT Total # of Minutes Spent Total Time Spent with Patient: Total time spent is greater than 50% in coordination of care (as documented) at patient's floor/unit and/or counseling patient: Coding Level of Care Code 51204 Subseq Hosp Care Lvl 2 Diagnoses Acute on chronic heart failure with preserved ejection fraction (HFpEF) I50.33 Acute and chronic respiratory failure with hypoxia J96.21 Hypernatremia E87.0 Blister T14.8XXA Chronic anemia D64.9 Anxiety F41.9 CVA (cerebral vascular accident) I63.9 Elevated troponin I level R77.8 Chronic kidney disease, stage 4 (severe) N18.4 COPD (chronic obstructive pulmonary disease) J44.9 Hypothyroidism E03.9 Hypothyroidism type: acquired Permanent atrial fibrillation I48.2 TAMIKA (obstructive sleep apnea) G47.33 Hypertension I10 Diabetes mellitus type 2, controlled, with complications E11.8 Liver mass R16.0 BPH (benign prostatic hyperplasia) N40.0 Lower urinary tract symptom presence: symptoms absent (1) BPH (benign prostatic hyperplasia) Lower urinary tract symptom presence: symptoms absent Qualified Code(s): N40.0 - Benign prostatic hyperplasia without lower urinary tract symptoms (2) Hypothyroidism Hypothyroidism type: acquired Qualified Code(s): E03.9 - Hypothyroidism, unspecified
[2022-06-16] MEDS: LORazepam 0.5 MG TAB PO SCH (22:34)
[2022-06-17] MEDS: LEVOTHYROXINE SODIUM 75 MCG TABLET PO SCH (05:47)
[2022-06-17 08:05] LABS: Hematocrit (blood only) 46.5 % (40.1-51.0); Hemoglobin 14.2 g/dl (14.0-18.0); Mean Corpuscular Hemoglobin 30.7 pg (25.0-34.0); Mean Corpuscular Hgb Conc 30.5 g/dL (32.0-36.0); Mean Corpuscular Volume 100.6 fL (80.0-100.0); Mean Platelet Volume 11.6 fL (9.4-12.4); Platelet Count 208 K/uL (130-400); RDW Standard Deviation 55.1 fL (36.4-46.3); Red Blood Count 4.62 M/uL (4.63-6.08); White Blood Count 8.56 K/ul (4.8-10.8)
[2022-06-17] MEDS: GABAPENTIN 100 MG CAP PO SCH ×2 (08:28→19:58)
[2022-06-17] MEDS: APIXABAN 2.5 MG TAB PO SCH ×2 (08:28→19:57)
[2022-06-17] MEDS: CHOLECALCIFEROL 1,000 UNITS 25 MCG TAB PO SCH (08:28)
[2022-06-17] MEDS: MULTIVITAMIN TAB PO SCH (08:29)
[2022-06-17] MEDS: allopurinoL 300 MG TAB PO SCH (08:29)
[2022-06-17] MEDS: ARTIFICIAL TEARS OP SCH ×4 (08:30→19:58)
[2022-06-17 08:33] LABS: BUN Creatinine Ratio 22.7 (10-20); Calcium 9.8 mg/dl (8.5-10.1); Creatinine Clr Calc Pharmacy 36.7 ml/min; Est GFR (African American) 35.9 ml/min; Potassium 4.6 mmol/L (3.5-5.1)
[2022-06-17] MEDS: INSULIN ASPART PER UNIT SC SCH ×4 (08:59→21:59)
[2022-06-17] MEDS: METOPROLOL SUCC 50MG EXT REL TAB PO SCH (09:13)
[2022-06-17] MEDS: ISOSORBIDE MONO EXTENDED REL 60 MG TABCR PO SCH (09:14)
[2022-06-17] MEDS: FUROSEMIDE 40 MG/4 ML VIAL IV SCH (09:18)
[2022-06-17] MEDS: CHOLESTYRAMINE LIGHT 4 GM PKT PO SCH ×2 (10:12→22:02)
[2022-06-17] MEDS: HYDROCODONE/ACETAMOPHEN 5/325MG TAB PO PRN ×2 (16:08→23:43)
--- NOTE | 2022-06-17 16:39 | XRay Report ---
XR chest 2V PA/lateral HISTORY: hypoxia COMPARISON: Chest 06/10/2022. FINDINGS: No pneumothorax. The heart remains enlarged. Moderate bilateral pleural effusions have slig htly progressed. Bibasilar densities persist. Mild interstitial pulmonary edema has slightly improved . There are calcifications within the aortic knob. There are low lung volumes. IMPRESSION: 1. Cardiomegaly with mild pulmonary edema. This has slightly improved. 2. Moderate bilateral pleural effusions and bibasilar densities have slightly progressed. ACT 112: Negative or not required by law. Electronically signed by: Corey Singh M.D. 06/17/2022 4:37 PM
[2022-06-17] MEDS: LORazepam 0.5 MG TAB PO SCH (19:56)
[2022-06-17] MEDS: ACETAMINOPHEN 325 MG TAB PO PRN (19:56)
[2022-06-17] MEDS: MIRTAZAPINE TAB 15 MG TAB PO SCH (19:57)
[2022-06-17] MEDS: ATORVASTATIN 40 MG TAB PO SCH (19:57)
--- NOTE | 2022-06-17 22:04 | Hospitalist Progress Note ---
Date of Service June 17, 2022 Assessment & Plan (1) Acute on chronic heart failure with preserved ejection fraction (HFpEF): Plan: Presented to the ER with worsening shortness of breath for several days with oxygen needs as high as 9 L; down to 3 L by nasal cannula currently Due to miscommunication patient was only taking torsemide 20 mg twice daily at home (discharge instructions from recent admission recommend 60 mg twice daily). Chest x-ray with mild pulmonary congestion and small bilateral pleural effusions. Improving, I's and O's not accurately recorded but his weight is down and he is clinically somewhat improved Does have some mild hypernatremia He was initially on Lasix 80 mg IV twice daily but this was decreased to 40 Mg IV twice daily on 06/15 despite being on lasix BID, oxygen requirements have not improved. -chest x ray is showing pleural effusions -d/w Ashwini Aguirre, feel that reaching limit with diuretics, will reach out to pulmonary for possible thoracocenthesis -will return to torsemide dosing when bump in renal function occurs. Strict intake and output and daily standing weights. Heart failure clinic consulted and appreciate recommendations. -Of note, he takes potassium chloride 40 mill equivalents p.o. twice daily at home and is on that here-follow potassium closely especially in the setting of CKD stage III -Follow BMP (2) Acute and chronic respiratory failure with hypoxia: Plan: Secondary to heart failure as above Improving almost back to baseline to-3 LNC O2 (3) Hypernatremia: Plan: As above, possibly due to overdiuresis Follow BMP (4) Blister: Plan: Very painful, posterior right calf Likely form secondary to lower extremity edema Pain not controlled with Tylenol-we will add hydrocodone as needed OPTi foam to the wound for now and consult wound care nurse is pending monitor for signs of infection developing but none currently (5) Chronic anemia: Plan: Hemoglobin fairly stable at 12, macrocytic B12 and folate were normal in 12/2021 No iron studies have been checked but seems unlikely given the macrocytosis that he would have iron deficiency TSH normal in 07/2021 Most likely anemia of chronic disease with chronic kidney disease, however also has a known liver mass so may be related to liver disease (6) Anxiety: Plan: -Continue Remeron nightly. -Patient is on Ativan nightly at home but it was ordered as needed here and he did not receive a dose for 4 days straight He finally received 1 dose on the night of 06/14 He is feeling "not quite right on 06/15-suspect could be due to benzodiazepine withdrawal beginning -Make lorazepam 0.5 Mg p.o. nightly scheduled dose -Confirmed in PDMP that he does have this prescribed although it does not seem that he picks it up often enough to take it on a scheduled basis (7) CVA (cerebral vascular accident): Plan: -Was hospitalized last month for this. -Eliquis should be renally dosed at 2.5 Mg p.o. twice daily as he is 81 years old and his creatinine is greater than 1.5-changed this dose today and this will need to be corrected on home medications -Continue atorvastatin. -No evidence of new focal neurologic deficits, and brief periods of confusion with re-directability have been noted on previous admissions. (8) Elevated troponin I level: Plan: -Troponin 42.6 -> 36.4. -Multifactorial with demand ischemia and decreased clearance (due to CKD). -No acute ECG changes noted when compared to his last ECG, elevated troponin likely related to demand . -Patient denies chest pain and pressure. -Continue to monitor on tele. (9) Chronic kidney disease, stage 4 (severe): Plan: -Baseline CKD stage G4/A2. Baseline Cr 2.5 w/ EGFR 23 cc/min. -Admission creatinine 1.80 and remains fairly stable around then at this time suspect improved creatinine on admission is due to fluid overload. Continue diuresis. -Daily BMP while admitted. Avoid nephrotoxins and renally dose medications as indicated Follow urine output (10) COPD (chronic obstructive pulmonary disease): Plan: No acute issues -Continue ipratropium-albuterol. -Incentive spirometry, flutter therapy. -Goal SpO2 between 88-92%, is currently at goal supplemental O2 need of 2-3L NC. (11) Hypothyroidism: Plan: -Continue levothyroxine . TSH normal earlier this year (12) Permanent atrial fibrillation: Plan: - Continue Eliquis, metoprolol. Rates are controlled, is not on telemetry anymore (13) TAMIKA (obstructive sleep apnea): Plan: - Does not use CPAP as he is claustrophobic, however did tolerate BiPAP on day of admission. Unfortunately patient refusing trial of CPAP at this time. (14) Hypertension: Plan: Pressures are mildly elevated -Continue metoprolol and Imdur. -Patient placed on 2 inches of nitro paste in the ED for hypertension with systolics in the 190's. Blood pressures improved and then this was discontinued. -Hydralazine 5 mg IV every 6 hours as needed for systolic blood pressures greater than 180. Patient has been on hydralazine 50 mg p.o. 3 times daily in the past, could consider something like this if his pressures continue to be elevated. (15) Diabetes mellitus type 2, controlled, with complications: Plan: -Normally on 70/30 at home. Hold basal insulin unless blood sugars greater than 180. Sliding scale insulin coverage ordered. A1c 6.0% in March of this year. (16) Liver mass: Plan: -Previously found on prior admissions. 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 Findings are suspicious for a primary hepatic malignancy such as hepatocellular carcinoma. -Per his latest PCP note his scheduled outpatient liver biopsy with GI was cancelled due to recent stroke. -Is supposed to get outpatient MRI of the liver. -Liver function currently stable. Patient will definitely need to follow-up on this after discharge (17) BPH (benign prostatic hyperplasia): Plan: No acute issues, is voiding Not on medications for this Continue to monitor for any lower urinary tract symptoms Plan Disposition- PT and OT consulted; recommending rehab. Insurance denied [facility]. [id number] not completed by myself as he has been repeatedly denied in the past for acute rehab and his insurance physician is notorious for denying rehab stays. Patient and agreeable to referral to correction facility. Case management is following up on this. He is not yet medically stable for discharge - FULL CODE I discussed his care with his on the phone on 06/15 Admission and Anticipated Discharge Date Admission Date: June 10, 2022 Subjective Patient reports he has a difficult night as he was confused. Patient states he feels he has not been improving over past few days. Review of Systems Review of Systems: All systems reviewed & are unremarkable except as noted in HPI & below Physical Exam Constitutional: WD/WN, vitals as above + obese Eyes: + anicteric sclerae Neck: trachea midline, no thyromegaly Respiratory: normal respiratory effort; no cough Auscultation: + diminished lung sounds (At the bases bilaterally); no crackles, no rhonchi and no wheezes Cardiovascular: RRR, no murmur, no edema Rate/Rhythm: regular rate, regular rhythm and + irregularly irregular Heart Sounds: no murmur Extremities: + edema (1+ pitting edema legs to knees bilat) Chest (Breasts): Chest: normal inspection of chest Gastrointestinal (Abdomen): normal bowel sounds, soft, nontender, no hepatosplenomegaly Musculoskeletal: Extremities: extremities normal to inspection; no cyanosis and no clubbing Skin: no rashes, warm and dry + lesion (Unroofed 4 cm blister posterior right calf, minimal surrounding erythema) Neurologic: moves all extremities and awake; no focal motor deficits Psychiatric: A+Ox3, euthymic affect Lymphatic: no lymphedema Results & Data Results & Data ([facility]) Vital Signs (Past 12 Hours) Vital Signs Temp Pulse Resp BP BP Pulse Ox O2 Del Method 06/17/22 20:40 36.7 C 69 20 173/79 H 94 Nasal Cannula 06/17/22 20:10 Nasal Cannula 06/17/22 15:19 36.7 C 68 18 169/63 H 94 Nasal Cannula 06/17/22 11:33 170/65 H O2 Flow Rate 06/17/22 20:40 3 06/17/22 20:10 4 06/17/22 15:19 4 06/17/22 11:33 PG Care Time/CCT Total # of Minutes Spent Total Time Spent with Patient: Total time spent is greater than 50% in coordination of care (as documented) at patient's floor/unit and/or counseling patient: Coding Level of Care Code 95937 Subseq Hosp Care Lvl 3 Diagnoses Acute on chronic heart failure with preserved ejection fraction (HFpEF) I50.33 Acute and chronic respiratory failure with hypoxia J96.21 Hypernatremia E87.0 Blister T14.8XXA Chronic anemia D64.9 Anxiety F41.9 CVA (cerebral vascular accident) I63.9 Elevated troponin I level R77.8 Chronic kidney disease, stage 4 (severe) N18.4 COPD (chronic obstructive pulmonary disease) J44.9 Hypothyroidism E03.9 Hypothyroidism type: acquired Permanent atrial fibrillation I48.2 TAMIKA (obstructive sleep apnea) G47.33 Hypertension I10 Diabetes mellitus type 2, controlled, with complications E11.8 Liver mass R16.0 BPH (benign prostatic hyperplasia) N40.0 Lower urinary tract symptom presence: symptoms absent Time Spent (min) 35 (1) BPH (benign prostatic hyperplasia) Lower urinary tract symptom presence: symptoms absent Qualified Code(s): N40. 0 - Benign prostatic hyperplasia without lower urinary tract symptoms (2) Hypothyroidism Hypothyroidism type: acquired Qualified Code(s): E03.9 - Hypothyroidism, unspecified
[2022-06-18] MEDS: LEVOTHYROXINE SODIUM 50 MCG TABLET PO SCH (05:23)
[2022-06-18 06:51] LABS: Hematocrit (blood only) 41.9 % (40.1-51.0); Hemoglobin 12.7 g/dl (14.0-18.0); Mean Corpuscular Hemoglobin 31.2 pg (25.0-34.0); Mean Corpuscular Hgb Conc 30.3 g/dL (32.0-36.0); Mean Corpuscular Volume 102.9 fL (80.0-100.0); Mean Platelet Volume 11.2 fL (9.4-12.4); Platelet Count 180 K/uL (130-400); RDW Coefficient of Variation 14.7 % (11.5-14.5); RDW Standard Deviation 55.3 fL (36.4-46.3); Red Blood Count 4.07 M/uL (4.63-6.08); White Blood Count 8.34 K/ul (4.8-10.8)
[2022-06-18 07:10] LABS: Calcium 9.2 mg/dl (8.5-10.1); Creatinine Clr Calc Pharmacy 41.5 ml/min; Est GFR (African American) 41.7 ml/min; Potassium 4.2 mmol/L (3.5-5.1)
[2022-06-18] MEDS: METOPROLOL SUCC 50MG EXT REL TAB PO SCH (08:34)
[2022-06-18] MEDS: APIXABAN 2.5 MG TAB PO SCH (08:35)
[2022-06-18] MEDS: allopurinoL 300 MG TAB PO SCH (08:35)
[2022-06-18] MEDS: CHOLECALCIFEROL 1,000 UNITS 25 MCG TAB PO SCH (08:35)
[2022-06-18] MEDS: ISOSORBIDE MONO EXTENDED REL 60 MG TABCR PO SCH (08:36)
[2022-06-18] MEDS: ARTIFICIAL TEARS OP SCH ×4 (08:36→20:09)
[2022-06-18] MEDS: MULTIVITAMIN TAB PO SCH (08:36)
[2022-06-18] MEDS: GABAPENTIN 100 MG CAP PO SCH ×2 (08:36→20:09)
[2022-06-18] MEDS: INSULIN ASPART PER UNIT SC SCH ×4 (09:04→21:03)
[2022-06-18] MEDS: CHOLESTYRAMINE LIGHT 4 GM PKT PO SCH ×2 (10:53→21:18)
[2022-06-18] MEDS: FUROSEMIDE 40 MG/4 ML VIAL IV SCH (10:56)
--- NOTE | 2022-06-18 12:17 | Cardiology Progress Note ---
Date of Service June 18, 2022 Assessment & Plan (1) Acute on chronic heart failure with preserved ejection fraction (HFpEF): (2) Acute and chronic respiratory failure with hypoxia: (3) COPD (chronic obstructive pulmonary disease): (4) Permanent atrial fibrillation: (5) TAMIKA (obstructive sleep apnea): (6) Lower extremity edema: Plan Although he appears comfortable and is doing well clinically, he still seems hypervolemic and is hypertensive. His chest x-ray from yesterday showed persistent pulmonary edema with increasing pleural effusions, his weight is only minimally changed from admission (although the weights are not terribly accurate), and his creatinine is at its recent leslie. Given these findings, even though he is prone to bump in creatinine with aggressive diuresis, would favor increasing the intensity of his diuretic regimen while he is an inpatient and having daily labs drawn, as this becomes much more difficult to monitor as an outpatient. Would give an additional dose of furosemide later today at increased dose of 60 mg of IV to "jumpstart" diuresis, then continue furosemide at 60 mg IV daily. Would prefer higher dose once daily to achieve threshold effect, since lower dose (even twice daily) is not resulting in a major diuresis. Consideration of thoracentesis is also reasonable, but need to keep him on the "dry" side to prevent recurrent effusions. BP elevated but likely would respond to further volume unloading. Ventricular response to atrial fibrillation actually seems a bit blunted for patient with chronic heart failure was decompensated, given absence of any tachycardia during this hospitalization would decrease his metoprolol succinate from 200 mg daily to 150 mg daily to allow more physiologic response to his current clinical status. Admission and Anticipated Discharge Date Admission Date: June 10, 2022 Subjective No new complaints, he was comfortable lying nearly flat on his side. He denies chest pain, dyspnea at rest, palpitations, or lightheadedness. I/O -760. Weight 2 pounds less than his admission weight. Physical Exam Physical Exam: No distress. Weight down 2 pounds from admission, but 6-9 pounds from his recent baseline weight. BP moderately hypertensive. Pulse 70 bpm and irregular. Skin: No ecchymoses or generalized lesions. HEENT unremarkable. Neck: Jugular venous pulse elevated (not quantified), no carotid bruits. Lungs: decreased excursion but no wheezing, crackles, rhonchi. Cardiac: irregular rhythm and faint heart tones, no obvious murmur. Abdomen benign. Extremities: 1-2+ pretibial edema, mild chronic venous stasis changes noted. Posterior tibial pulse intact but diminished. Neurologic: normal affect nonfocal. Results & Data ([facility]) Vital Signs (Past 12 Hours) Vital Signs Temp Pulse Resp BP Pulse Ox O2 Del Method O2 Flow Rate 06/18/22 07:30 97.3 F L 67 16 170/79 H 97 Nasal Cannula 4 Laboratory Results Normal electrolytes, BUN 49, creatinine 1.75 (down from 1.98). Diagnostic Findings Chest x-ray 06/17/2022 showed mild pulmonary edema which was slightly improved and moderate bilateral pleural effusions which have slightly progressed. PG Care Time/CCT Total # of Minutes Spent Total Time Spent with Patient: Total time spent is greater than 50% in coordination of care (as documented) at patient's floor/unit and/or counseling patient: Coding Level of Care Code 88774 Subseq Hosp Care Lvl 3 Diagnoses Acute on chronic heart failure with preserved ejection fraction (HFpEF) I50.33 Acute and chronic respiratory failure with hypoxia J96.21 COPD (chronic obstructive pulmonary disease) J44.9 Permanent atrial fibrillation I48.2 TAMIKA (obstructive sleep apnea) G47.33 Lower extremity edema R60.0
[2022-06-18] MEDS ORDERED: POLYETHYLENE (MIRALAX) 17 GM PACK PO ONE (16:34)
[2022-06-18] MEDS: LORazepam 0.5 MG TAB PO SCH (20:08)
[2022-06-18] MEDS: MIRTAZAPINE TAB 15 MG TAB PO SCH (20:09)
[2022-06-18] MEDS: ATORVASTATIN 40 MG TAB PO SCH (20:10)
[2022-06-18] MEDS: hydrALAZINE HCL 20 MG/ML VIAL IV PRN (21:16)
--- NOTE | 2022-06-18 21:53 | Hospitalist Progress Note ---
Date of Service June 18, 2022 Assessment & Plan (1) Acute on chronic heart failure with preserved ejection fraction (HFpEF): Plan: Presented to the ER with worsening shortness of breath for several days with oxygen needs as high as 9 L; down to 3 L by nasal cannula currently Due to miscommunication patient was only taking torsemide 20 mg twice daily at home (discharge instructions from recent admission recommend 60 mg twice daily). Chest x-ray with mild pulmonary congestion and small bilateral pleural effusions. Improving, I's and O's not accurately recorded but his weight is down and he is clinically somewhat improved Does have some mild hypernatremia He was initially on Lasix 80 mg IV twice daily but this was decreased to 40 Mg IV twice daily on 06/15 despite being on lasix BID, oxygen requirements have not improved. -chest x ray is showing pleural effusions -d/w Ashwini Aguirre, feel that reaching limit with diuretics, will reach out to pulmonary for possible thoracocenthesis -switched to lasix daily on 06/19 Strict intake and output and daily standing weights. Heart failure clinic consulted and appreciate recommendations. -Of note, he takes potassium chloride 40 mill equivalents p.o. twice daily at home and is on that here-follow potassium closely especially in the setting of CKD stage III -potassium has been held (2) Acute and chronic respiratory failure with hypoxia: Plan: Secondary to heart failure as above Improving almost back to baseline to-3 LNC O2 (3) Hypernatremia: Plan: As above, possibly due to overdiuresis Follow BMP (4) Blister: Plan: Very painful, posterior right calf Likely form secondary to lower extremity edema Pain not controlled with Tylenol-we will add hydrocodone as needed OPTi foam to the wound for now and consult wound care nurse is pending monitor for signs of infection developing but none currently (5) Chronic anemia: Plan: Hemoglobin fairly stable at 12, macrocytic B12 and folate were normal in 12/2021 No iron studies have been checked but seems unlikely given the macrocytosis that he would have iron deficiency TSH normal in 07/2021 Most likely anemia of chronic disease with chronic kidney disease, however also has a known liver mass so may be related to liver disease (6) Anxiety: Plan: -Continue Remeron nightly. -Patient is on Ativan nightly at home but it was ordered as needed here and he did not receive a dose for 4 days straight He finally received 1 dose on the night of 06/14 He is feeling "not quite right on 06/15-suspect could be due to benzodiazepine withdrawal beginning -Make lorazepam 0.5 Mg p.o. nightly scheduled dose -Confirmed in PDMP that he does have this prescribed although it does not seem that he picks it up often enough to take it on a scheduled basis (7) CVA (cerebral vascular accident): Plan: -Was hospitalized last month for this. -Eliquis should be renally dosed at 2.5 Mg p.o. twice daily as he is 81 years old and his creatinine is greater than 1.5-changed this dose today and this will need to be corrected on home medications -Continue atorvastatin. -No evidence of new focal neurologic deficits, and brief periods of confusion with re-directability have been noted on previous admissions. (8) Elevated troponin I level: Plan: -Troponin 42.6 -> 36.4. -Multifactorial with demand ischemia and decreased clearance (due to CKD). -No acute ECG changes noted when compared to his last ECG, elevated troponin likely related to demand . -Patient denies chest pain and pressure. -Continue to monitor on tele. (9) Chronic kidney disease, stage 4 (severe): Plan: -Baseline CKD stage G4/A2. Baseline Cr 2.5 w/ EGFR 23 cc/min. -Admission creatinine 1.80 and remains fairly stable around then at this time suspect improved creatinine on admission is due to fluid overload. Continue diuresis. -Daily BMP while admitted. Avoid nephrotoxins and renally dose medications as indicated Follow urine output (10) COPD (chronic obstructive pulmonary disease): Plan: No acute issues -Continue ipratropium-albuterol. -Incentive spirometry, flutter therapy. -Goal SpO2 between 88-92%, is currently at goal supplemental O2 need of 2-3L NC. (11) Hypothyroidism: Plan: -Continue levothyroxine . TSH normal earlier this year (12) Permanent atrial fibrillation: Plan: - Continue Eliquis, metoprolol. Rates are controlled, is not on telemetry anymore (13) TAMIKA (obstructive sleep apnea): Plan: - Does not use CPAP as he is claustrophobic, however did tolerate BiPAP on day of admission. Unfortunately patient refusing trial of CPAP at this time. (14) Hypertension: Plan: Pressures are mildly elevated -Continue metoprolol and Imdur. -Patient placed on 2 inches of nitro paste in the ED for hypertension with systolics in the 190's. Blood pressures improved and then this was discontinued. -Hydralazine 5 mg IV every 6 hours as needed for systolic blood pressures greater than 180. Patient has been on hydralazine 50 mg p.o. 3 times daily in the past, could consider something like this if his pressures continue to be elevated. (15) Diabetes mellitus type 2, controlled, with complications: Plan: -Normally on 70/30 at home. Hold basal insulin unless blood sugars greater than 180. Sliding scale insulin coverage ordered. A1c 6.0% in March of this year. (16) Liver mass: Plan: -Previously found on prior admissions. 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 Findings are suspicious for a primary hepatic malignancy such as hepatocellular carcinoma. -Per his latest PCP note his scheduled outpatient liver biopsy with GI was cancelled due to recent stroke. -Is supposed to get outpatient MRI of the liver. -Liver function currently stable. Patient will definitely need to follow-up on this after discharge (17) BPH (benign prostatic hyperplasia): Plan: No acute issues, is voiding Not on medications for this Continue to monitor for any lower urinary tract symptoms Plan Disposition- PT and OT consulted; recommending rehab. Insurance denied [facility]. [id number] not completed by myself as he has been repeatedly denied in the past for acute rehab and his insurance physician is notorious for denying rehab stays. Patient and agreeable to referral to shelter facility. Case management is following up on this. He is not yet medically stable for discharge - FULL CODE Admission and Anticipated Discharge Date Admission Date: June 10, 2022 Subjective Patient is lying on his side. He has no new complaints. Review of Systems Review of Systems: All systems reviewed & are unremarkable except as noted in HPI & below Physical Exam Constitutional: WD/WN, vitals as above + obese Eyes: + anicteric sclerae Neck: trachea midline, no thyromegaly Respiratory: normal respiratory effort; no cough Auscultation: + diminished lung sounds (At the bases bilaterally); no crackles, no rhonchi and no wheezes Cardiovascular: RRR, no murmur, no edema Rate/Rhythm: regular rate, regular rhythm and + irregularly irregular Heart Sounds: no murmur Extremities: + edema (1+ pitting edema legs to knees bilat) Chest (Breasts): Chest: normal inspection of chest Gastrointestinal (Abdomen): normal bowel sounds, soft, nontender, no hepatosplenomegaly Musculoskeletal: Extremities: extremities normal to inspection; no cyanosis and no clubbing Skin: no rashes, warm and dry + lesion (Unroofed 4 cm blister posterior right calf, minimal surrounding erythema) Neurologic: moves all extremities and awake; no focal motor deficits Psychiatric: A+Ox3, euthymic affect Lymphatic: no lymphedema Results & Data Results & Data ([facility]) Vital Signs (Past 12 Hours) Vital Signs Temp Pulse Resp BP Pulse Ox O2 Del Method O2 Flow Rate 06/18/22 21:45 167/78 H 06/18/22 21:01 36.2 C L 72 18 180/82 H 96 Nasal Cannula 3 06/18/22 20:13 Nasal Cannula 3 06/18/22 15:33 36.2 C L 71 16 155/72 H 96 Room Air PG Care Time/CCT Total # of Minutes Spent Total Time Spent with Patient: Total time spent is greater than 50% in coordination of care (as documented) at patient's floor/unit and/or counseling patient: Coding Level of Care Code 08266 Subseq Hosp Care Lvl 2 Diagnoses Acute on chronic heart failure with preserved ejection fraction (HFpEF) I50.33 Acute and chronic respiratory failure with hypoxia J96.21 Hypernatremia E87.0 Blister T14.8XXA Chronic anemia D64.9 Anxiety F41.9 CVA (cerebral vascular accident) I63.9 Elevated troponin I level R77.8 Chronic kidney disease, stage 4 (severe) N18.4 COPD (chronic obstructive pulmonary disease) J44.9 Hypothyroidism E03.9 Hypothyroidism type: acquired Permanent atrial fibrillation I48.2 TAMIKA (obstructive sleep apnea) G47.33 Hypertension I10 Diabetes mellitus type 2, controlled, with complications E11.8 Liver mass R16.0 BPH (benign prostatic hyperplasia) N40.0 Lower urinary tract symptom presence: symptoms absent Time Spent (min) 25 (1) BPH (benign prostatic hyperplasia) Lower urinary tract symptom presence: symptoms absent Qualified Code(s): N40.0 - Benign prostatic hyperplasia without lower urinary tract symptoms (2) Hypothyroidism Hypothyroidism type: acquired Qualified Code(s): E03.9 - Hypothyroidism, unspecified
[2022-06-19] MEDS: LEVOTHYROXINE SODIUM 75 MCG TABLET PO SCH (06:13)
[2022-06-19] MEDS: IPRATROPIUM BROMIDE HFA INHALER INH PRN (09:19)
[2022-06-19] MEDS: ALBUTEROL HFA 8 GM INHALER INH PRN (09:19)
[2022-06-19] MEDS: INSULIN ASPART PER UNIT SC SCH ×4 (09:53→21:05)
[2022-06-19] MEDS: allopurinoL 300 MG TAB PO SCH (09:54)
[2022-06-19] MEDS: ARTIFICIAL TEARS OP SCH ×4 (09:54→20:29)
[2022-06-19] MEDS: GABAPENTIN 100 MG CAP PO SCH ×2 (09:55→20:29)
[2022-06-19] MEDS: ISOSORBIDE MONO EXTENDED REL 60 MG TABCR PO SCH (09:55)
[2022-06-19] MEDS: CHOLECALCIFEROL 1,000 UNITS 25 MCG TAB PO SCH (09:55)
[2022-06-19] MEDS: MULTIVITAMIN TAB PO SCH (09:56)
[2022-06-19] MEDS: METOPROLOL SUCC 50MG EXT REL TAB PO SCH (09:57)
[2022-06-19] MEDS: FUROSEMIDE 40 MG/4 ML VIAL IV SCH (09:58)
[2022-06-19 10:51] LABS: Hematocrit (blood only) 43.3 % (40.1-51.0); Hemoglobin 13.2 g/dl (14.0-18.0); Mean Corpuscular Hemoglobin 31.1 pg (25.0-34.0); Mean Corpuscular Hgb Conc 30.5 g/dL (32.0-36.0); Mean Corpuscular Volume 102.1 fL (80.0-100.0); Mean Platelet Volume 11.6 fL (9.4-12.4); Platelet Count 197 K/uL (130-400); RDW Standard Deviation 56.4 fL (36.4-46.3); Red Blood Count 4.24 M/uL (4.63-6.08); White Blood Count 7.37 K/ul (4.8-10.8)
[2022-06-19 11:16] LABS: BUN Creatinine Ratio 25.9 (10-20); Calcium 9.6 mg/dl (8.5-10.1); Creatinine Clr Calc Pharmacy 41.7 ml/min; Est GFR (Non-African American) 36.2 ml/min; Potassium 3.9 mmol/L (3.5-5.1)
[2022-06-19] MEDS: CHOLESTYRAMINE LIGHT 4 GM PKT PO SCH ×2 (11:56→21:31)
--- NOTE | 2022-06-19 13:54 | Cardiology Progress Note ---
Date of Service June 19, 2022 Assessment & Plan (1) Acute on chronic heart failure with preserved ejection fraction (HFpEF): (2) COPD (chronic obstructive pulmonary disease): (3) Permanent atrial fibrillation: (4) Lower extremity edema: Plan Although he appears comfortable and is doing well clinically, he still seems hypervolemic and is hypertensive. His chest x-ray from 2 days ago showed persistent pulmonary edema with increasing pleural effusions, his weight is only minimally changed from admission (although the weights are not terribly accurate), and his creatinine is at its recent leslie. Given these findings, even though he is prone to bump in creatinine with aggressive diuresis, would favor increasing the intensity of his diuretic regimen while he is an inpatient and having daily labs drawn, as this becomes much more difficult to monitor as an outpatient. Would increase furosemide dose of 60 mg IV daily. Would prefer higher dose once daily to achieve threshold effect, since lower dose (even twice daily) is not resulting in a major diuresis. Consideration of thoracentesis is also reasonable, but need to keep him on the "dry" side to prevent recurrent effusions. BP elevated but likely would respond to further volume unloading. Ventricular response to atrial fibrillation actually seems a bit blunted for patient with chronic heart failure was decompensated, given absence of any tachycardia during this hospitalization would decrease his metoprolol succinate from 200 mg daily to 150 mg daily to allow more physiologic response to his current clinical status. Admission and Anticipated Discharge Date Admission Date: June 10, 2022 Subjective Patient was comfortable sitting upright and denied any dyspnea, chest pain, or lightheadedness. I/O even and there was no weight from today, but the patient notes that he had a good diuresis. Physical Exam Physical Exam: No distress. Weight down 2 pounds from admission, but 6-9 pounds from his recent baseline weight. BP moderately hypertensive. Pulse 80 bpm and irregular. Skin: No ecchymoses or generalized lesions. HEENT unremarkable. Neck: Jugular venous pulse one quarter the way to the angle of the jaw at 90 degrees, no carotid bruits. Lungs: decreased excursion but no wheezing, crackles, rhonchi. Cardiac: irregular rhythm and faint heart tones, no obvious murmur. Abdomen benign. Extremities: 1-2+ pretibial edema, mild chronic venous stasis changes noted. Posterior tibial pulse intact but diminished. Neurologic: normal affect nonfocal. Results & Data ([facility]) Vital Signs (Past 12 Hours) Vital Signs Temp Pulse Resp BP Pulse Ox O2 Del Method O2 Flow Rate 06/19/22 07:35 Nasal Cannula 3 06/19/22 09:20 82 18 92 Nasal Cannula 3 06/19/22 08:59 169/74 H 06/19/22 07:28 98.2 F 81 20 184/81 H 92 Nasal Cannula 3 Laboratory Results Sodium 147, potassium 3.9, BUN 45, creatinine 1.74 PG Care Time/CCT Total # of Minutes Spent Total Time Spent with Patient: Total time spent is greater than 50% in coordination of care (as documented) at patient's floor/unit and/or counseling patient: Coding Level of Care Code 55152 Subseq Hosp Care Lvl 3 Diagnoses Acute on chronic heart failure with preserved ejection fraction (HFpEF) I50.33 COPD (chronic obstructive pulmonary disease) J44.9 Permanent atrial fibrillation I48.2 Lower extremity edema R60.0
[2022-06-19] MEDS: ATORVASTATIN 40 MG TAB PO SCH (20:29)
[2022-06-19] MEDS: MIRTAZAPINE TAB 15 MG TAB PO SCH (20:30)
[2022-06-19] MEDS: LORazepam 0.5 MG TAB PO SCH (20:32)
--- NOTE | 2022-06-19 21:44 | Hospitalist Progress Note ---
Date of Service June 19, 2022 Assessment & Plan (1) Acute on chronic heart failure with preserved ejection fraction (HFpEF): Plan: Presented to the ER with worsening shortness of breath for several days with oxygen needs as high as 9 L; down to 3 L by nasal cannula currently Due to miscommunication patient was only taking torsemide 20 mg twice daily at home (discharge instructions from recent admission recommend 60 mg twice daily). Chest x-ray with mild pulmonary congestion and small bilateral pleural effusions. Improving, I's and O's not accurately recorded but his weight is down and he is clinically somewhat improved Does have some mild hypernatremia He was initially on Lasix 80 mg IV twice daily but this was decreased to 40 Mg IV twice daily on 06/15 despite being on lasix BID, oxygen requirements have not improved. -chest x ray is showing pleural effusions -d/w Ashwini Aguirre, feel that reaching limit with diuretics, will reach out to pulmonary for possible thoracocenthesis: -Eliquis has been held since AM on 06/18, plan for thoracocenthesis on 06/20 -switched to lasix 40 mg on 06/18 Strict intake and output and daily standing weights. Heart failure clinic consulted and appreciate recommendations. -Of note, he takes potassium chloride 40 mill equivalents p.o. twice daily at home and is on that here-follow potassium closely especially in the setting of CKD stage III -potassium has been held (2) Acute and chronic respiratory failure with hypoxia: Plan: Secondary to heart failure as above Improving almost back to baseline to-3 LNC O2 (3) Hypernatremia: Plan: As above, possibly due to overdiuresis Follow BMP (4) Blister: Plan: Very painful, posterior right calf Likely form secondary to lower extremity edema Pain not controlled with Tylenol-we will add hydrocodone as needed OPTi foam to the wound for now and consult wound care nurse is pending monitor for signs of infection developing but none currently (5) Chronic anemia: Plan: Hemoglobin fairly stable at 12, macrocytic B12 and folate were normal in 12/2021 No iron studies have been checked but seems unlikely given the macrocytosis that he would have iron deficiency TSH normal in 07/2021 Most likely anemia of chronic disease with chronic kidney disease, however also has a known liver mass so may be related to liver disease (6) Anxiety: Plan: -Continue Remeron nightly. -Patient is on Ativan nightly at home but it was ordered as needed here and he did not receive a dose for 4 days straight He finally received 1 dose on the night of 06/14 He is feeling "not quite right on 06/15-suspect could be due to benzodiazepine withdrawal beginning -Make lorazepam 0.5 Mg p.o. nightly scheduled dose -Confirmed in PDMP that he does have this prescribed although it does not seem that he picks it up often enough to take it on a scheduled basis (7) CVA (cerebral vascular accident): Plan: -Was hospitalized last month for this. -Eliquis should be renally dosed at 2.5 Mg p.o. twice daily as he is 81 years old and his creatinine is greater than 1.5-changed this dose today and this will need to be corrected on home medications -Continue atorvastatin. -No evidence of new focal neurologic deficits, and brief periods of confusion with re-directability have been noted on previous admissions. (8) Elevated troponin I level: Plan: -Troponin 42.6 -> 36.4. -Multifactorial with demand ischemia and decreased clearance (due to CKD). -No acute ECG changes noted when compared to his last ECG, elevated troponin likely related to demand . -Patient denies chest pain and pressure. -Continue to monitor on tele. (9) Chronic kidney disease, stage 4 (severe): Plan: -Baseline CKD stage G4/A2. Baseline Cr 2.5 w/ EGFR 23 cc/min. -Admission creatinine 1.80 and remains fairly stable around then at this time suspect improved creatinine on admission is due to fluid overload. Continue diuresis. -Daily BMP while admitted. Avoid nephrotoxins and renally dose medications as indicated Follow urine output (10) COPD (chronic obstructive pulmonary disease): Plan: No acute issues -Continue ipratropium-albuterol. -Incentive spirometry, flutter therapy. -Goal SpO2 between 88-92%, is currently at goal supplemental O2 need of 2-3L NC. (11) Hypothyroidism: Plan: -Continue levothyroxine . TSH normal earlier this year (12) Permanent atrial fibrillation: Plan: - Continue Eliquis, metoprolol. Rates are controlled, is not on telemetry anymore (13) TAMIKA (obstructive sleep apnea): Plan: - Does not use CPAP as he is claustrophobic, however did tolerate BiPAP on day of admission. Unfortunately patient refusing trial of CPAP at this time. (14) Hypertension: Plan: Pressures are mildly elevated -Continue metoprolol and Imdur. -Patient placed on 2 inches of nitro paste in the ED for hypertension with systolics in the 190's. Blood pressures improved and then this was discontinued. -Hydralazine 5 mg IV every 6 hours as needed for systolic blood pressures greater than 180. Patient has been on hydralazine 50 mg p.o. 3 times daily in the past, could consider something like this if his pressures continue to be elevated. (15) Diabetes mellitus type 2, controlled, with complications: Plan: -Normally on 70/30 at home. Hold basal insulin unless blood sugars greater than 180. Sliding scale insulin coverage ordered. A1c 6.0% in March of this year. (16) Liver mass: Plan: -Previously found on prior admissions. 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 Findings are suspicious for a primary hepatic malignancy such as hepatocellular carcinoma. -Per his latest PCP note his scheduled outpatient liver biopsy with GI was cancelled due to recent stroke. -Is supposed to get outpatient MRI of the liver. -Liver function currently stable. Patient will definitely need to follow-up on this after discharge (17) BPH (benign prostatic hyperplasia): Plan: No acute issues, is voiding Not on medications for this Continue to monitor for any lower urinary tract symptoms Plan Disposition- PT and OT consulted; recommending rehab. Insurance denied [facility]. [id number] not completed by myself as he has been repeatedly denied in the past for acute rehab and his insurance physician is notorious for denying rehab stays. Patient and agreeable to referral to [facility] facility. Case management is following up on this. He is not yet medically stable for discharge - FULL CODE Admission and Anticipated Discharge Date Admission Date: June 10, 2022 Subjective Patient reports no significant improvement today. Review of Systems Review of Systems: All systems reviewed & are unremarkable except as noted in HPI & below Physical Exam Constitutional: WD/WN, vitals as above + obese Eyes: + anicteric sclerae Neck: trachea midline, no thyromegaly Respiratory: normal respiratory effort; no cough Auscultation: + diminished lung sounds (At the bases bilaterally); no crackles, no rhonchi and no wheezes Cardiovascular: RRR, no murmur, no edema Rate/Rhythm: regular rate, regular rhythm and + irregularly irregular Heart Sounds: no murmur Extremities: + edema (1+ pitting edema legs to knees bilat) Chest (Breasts): Chest: normal inspection of chest Gastrointestinal (Abdomen): normal bowel sounds, soft, nontender, no hepatosplenomegaly Musculoskeletal: Extremities: extremities normal to inspection; no cyanosis and no clubbing Skin: no rashes, warm and dry + lesion (Unroofed 4 cm blister posterior right calf, minimal surrounding erythema) Neurologic: moves all extremities and awake; no focal motor deficits Psychiatric: A+Ox3, euthymic affect Lymphatic: no lymphedema Results & Data Results & Data ([facility]) Vital Signs (Past 12 Hours) Vital Signs Temp Pulse Resp BP Pulse Ox O2 Del Method O2 Flow Rate 06/19/22 20:20 Nasal Cannula 3 06/19/22 15:13 36.7 C 69 18 129/66 93 Nasal Cannula 3 PG Care Time/CCT Total # of Minutes Spent Total Time Spent with Patient: Total time spent is greater than 50% in coordination of care (as documented) at patient's floor/unit and/or counseling patient: Coding Level of Care Code 09449 Subseq Hosp Care Lvl 2 Diagnoses Acute on chronic heart failure with preserved ejection fraction (HFpEF) I50.33 Acute and chronic respiratory failure with hypoxia J96.21 Hypernatremia E87.0 Blister T14.8XXA Chronic anemia D64.9 Anxiety F41.9 CVA (cerebral vascular accident) I63.9 Elevated troponin I level R77.8 Chronic kidney disease, stage 4 (severe) N18.4 COPD (chronic obstructive pulmonary disease) J44.9 Hypothyroidism E03.9 Hypothyroidism type: acquired Permanent atrial fibrillation I48.2 TAMIKA (obstructive sleep apnea) G47.33 Hypertension I10 Diabetes mellitus type 2, controlled, with complications E11.8 Liver mass R16.0 BPH (benign prostatic hyperplasia) N40.0 Lower urinary tract symptom presence: symptoms absent (1) BPH (benign prostatic hyperplasia) Lower urinary tract symptom presence: symptoms absent Qualified Code(s): N40.0 - Benign prostatic hyperplasia without lower urinary tract symptoms (2) Hypothyroidism Hypothyroidism type: acquired Qualified Code(s): E03.9 - Hypothyroidism, unspecified
[2022-06-20] MEDS: LEVOTHYROXINE SODIUM 50 MCG TABLET PO SCH (05:55)
[2022-06-20] MEDS: GABAPENTIN 100 MG CAP PO SCH ×2 (08:46→21:17)
[2022-06-20] MEDS: allopurinoL 300 MG TAB PO SCH (08:47)
[2022-06-20] MEDS: CHOLECALCIFEROL 1,000 UNITS 25 MCG TAB PO SCH (08:48)
[2022-06-20] MEDS: ARTIFICIAL TEARS OP SCH ×4 (08:48→21:07)
[2022-06-20] MEDS: ISOSORBIDE MONO EXTENDED REL 60 MG TABCR PO SCH (08:48)
[2022-06-20] MEDS: MULTIVITAMIN TAB PO SCH (08:49)
[2022-06-20] MEDS: INSULIN ASPART PER UNIT SC SCH ×4 (09:07→21:09)
[2022-06-20] MEDS: METOPROLOL SUCC 50MG EXT REL TAB PO SCH (09:10)
[2022-06-20] MEDS: FUROSEMIDE INJ 20 MG/2 ML VIAL IV SCH (10:13)
[2022-06-20] MEDS: CHOLESTYRAMINE LIGHT 4 GM PKT PO SCH ×2 (10:16→21:08)
--- NOTE | 2022-06-20 14:16 | Pulmonary Consultation ---
Date of Consultation June 20, 2022 Assessment & Plan (1) Acute on chronic heart failure with preserved ejection fraction (HFpEF): (2) Respiratory failure with hypoxia and hypercapnia: (3) Pleural effusion: Plan Impression: 81-year-old male with history of heart failure admitted with same. Has been diuresed although not terribly aggressively so but has persistent bilateral effusions. His anticoagulation has been held. I discussed with the patient thoracentesis which may offer a more rapid resolution of the pleural effusions however is not a long-term strategy. The patient expressed understanding and would like to proceed with thoracentesis. Recommendations: 1. Patient will undergo thoracic ultrasound. We will plan on tapping the larger of the 2 effusions. We will see if this offers the patient symptomatic relief. For completeness sake, pleural fluid will be sent for routine microbiologic and cytologic analysis. 2. Would recommend more aggressive medical optimization including maintaining blood pressures in the 1 25-75 range given his diastolic dysfunction. In addition would push diuretics until the patient has bump in BUN, creatinine, or bicarb. 3. I advised the patient and his that thoracentesis is not a long-term management strategy for heart failure with pleural effusions. They understand that he needs to be optimized from a medical standpoint. We will see if he obtained significant relief from tapping 1 side and then reassess on the other side of his anticoagulation remains on hold. 4. Pulmonary hypertension: Secondary to above. No indication for pulmonary vasodilators and any other therapy other than aggressive diuresis and optimization of fluid status. 5. Sleep disordered breathing: The patient's been intolerant to CPAP in the past. He understands that it may offer him some benefit with regards to heart failure and atrial fibrillation. Declines currently. We will follow-up with results of the pleural fluid studies. Feel free to contact us with additional questions or concerns History of Present Illness Attending Physician: Dilan Guevara History of Present Illness Asked by hospitalist to evaluate this patient with heart failure with bilateral pleural effusions which have persisted despite diuretics. History is obtained from discussion with the patient as well as review the electronic medical record. Patient is an 81-year-old male with a history of congestive heart failure who was admitted to the facility 06/10/2022. He had an elevated troponin and evidence of fluid overload with hypertensive urgency. He has been treated with diuretic therapy throughout his hospitalization with some improvement but he has persistent hypoxemia and shortness of breath which is worse with exertion. Chest x-ray has demonstrated bilateral pleural effusions. Cardiology feels that they have optimize his diuretic regimen and pulmonary was consulted to evaluate the patient for thoracentesis. The patient has never undergone thoracentesis in the past. He does not report fevers chills night sweats or other constitutional symptoms. Allergies Allergy/AdvReac Type Severity Reaction Status Date / Time morphine Allergy Intermediate DELUSIONS, Verified 06/10/22 16:43 "LOSES TIME" adhesive Allergy Mild RASH Verified 06/10/22 16:43 latex AdvReac Intermediate BLISTERS Verified 06/10/22 16:43 SKIN Home Medications Medication Instructions Recorded Confirmed Type multivitamin (Daily Multi-Vitamin 1 tab PO DAILY 01/20/19 06/10/22 History tablet) cholecalciferol (vitamin D3) 50 2,000 unit PO DAILY ##0 03/01/19 06/10/22 Histo ry mcg (2,000 unit) capsule One Touch Ava Meter Kit #1 ea 02/13/21 05/21/22 Rx ipratropium 20 mcg-albuterol 100 2 puff inhalation Q6H PRN 03/05/21 06/10/22 Rx mcg/actuation mist for inhalation sob/wheezing #4 grams (Combivent Respimat) blood sugar diagnostic (OneTouch #100 ea 08/12/21 05/21/22 Rx Verio test strips) allopurinol 300 mg tablet 300 mg PO QAM #90 tabs 10/10/21 06/10/22 Rx gabapentin 100 mg capsule 100 mg PO AMPM 01/14/22 06/10/22 History isosorbide mononitrate 120 mg 120 mg PO QAM #90 tabs 01/15/22 06/10/22 Rx tablet,extended release 24 hr levothyroxine 50 mcg tablet 50 mcg PO .COMPLEX #45 tabs 02/13/22 06/10/22 Rx levothyroxine 75 mcg tablet 75 mcg PO .COMPLEX #45 tabs 02/13/22 06/10/22 Rx potassium chloride 20 mEq 40 meq PO BID #360 tabs 03/10/22 06/10/22 Rx tablet,extended release metoprolol succinate 200 mg 200 mg PO QAM #90 tabs 04/07/22 06/10/22 Rx tablet,extended release 24 hr Portable Oxygen #1 ea 05/21/22 Rx apixaban 5 mg tablet 5 mg PO BID #60 tabs 05/21/22 06/10/22 Rx atorvastatin 40 mg tablet 40 mg PO QPM #30 tabs 05/21/22 06/10/22 Rx portable oxygen concentrator #1 ea 05/26/22 Rx lorazepam 0.5 mg tablet 0.5 mg PO HS PRN Sleep 06/10/22 06/10/22 History mirtazapine 7.5 mg tablet 7.5 mg PO HS 06/10/22 06/10/22 History torsemide 20 mg tablet 60 mg PO BID 06/10/22 06/10/22 History blood sugar diagnostic (OneTouch #100 ea 06/15/22 Rx Verio test strips) insulin aspar prot-insulin aspart 15 unit (0.15 mL) subcut AMPM #15 06/15/22 Rx 100 unit/mL (70-30) subcutaneous mL pen lancets 33 gauge (OneTouch Delica #100 ea 06/15/22 Rx Lancets) pen needle, diabetic 31 gauge x #200 ea 06/15/22 Rx 3/16" (BD Ultra-Fine Mini Pen Needle) Patient History Medical History Allergic rhinitis Arthritis BPH (benign prostatic hyperplasia) Cardiomyopathy Chronic kidney disease, stage 3 Chronic obstructive pulmonary disease Claustrophobia Congestive heart failure COPD (chronic obstructive pulmonary disease) Diabetic nephropathy associated with type 2 diabetes mellitus Hearing deficit Hiatal hernia History of colon polyps History of leukemia HTN (hypertension) Hx of sleep apnea Hypertension Hypothyroidism Hypothyroidism Insulin dependent diabetes mellitus Lumbar facet joint syndrome Mild mitral regurgitation Obesity Pain of right sacroiliac joint Peripheral edema Splenic infarct Type 2 diabetes mellitus, with long-term current use of insulin Surgical History History of AAA (abdominal aortic aneurysm) repair History of bronchoscopy History of cardiac cath History of cataract surgery History of colonoscopy History of ear surgery History of tonsillectomy History of tooth extraction History of total knee replacement S/P cholecystectomy Family History Son Colon cancer Coronary heart disease Sister Hypothyroidism Lymphoma Stroke Mother Aortic aneurysm Diabetes Father Heart disease Myocardial infarction Sister Liver problem Other Hypertension Denies family history of Ovarian cancer Prostate cancer Breast cancer Social History Smoking Status: Former smoker Tobacco Type: Cigarettes Age Started Using Tobacco: 16; Age Quit Using Tobacco: 39; packs per day: 5; Second Hand Exposure: No; Hx Alcohol Use: Yes Hx Substance Use: No Preferred Language: Uzbek Communication Ability: Effective Visual Impairment: No Limitations Hearing Ability: Use of Hearing Aid [employer] Teacher Required: No Beliefs That Will Affect Care: None marital status: Current Living Situation: Spouse current occupational status: retired current occupation: retired from [employer] How many Children do You have: 3 Feels Safe at Home: Yes Childhood Exposure to Second-Hand Smoke: No caffeine: No during the past year weight has: remained stable Dental Care, Regularly: Yes Physical Activity Frequency: Does not Exercise Seatbelt Use: always Sunscreen Use: No Assistive Devices: Cane and Walker Review of Systems Review of Systems: Please refer to hospitalist note. No additions or deletions Physical Exam Constitutional: WD/WN, vitals as above + obese Eyes: + anicteric sclerae Neck: trachea midline, no thyromegaly Respiratory: normal respiratory effort; no cough Auscultation: + diminished lung sounds (At the bases bilaterally); no crackles, no rhonchi and no wheezes Cardiovascular: RRR, no murmur, no edema Rate/Rhythm: regular rate, regular rhythm and + irregularly irregular Heart Sounds: no murmur Extremities: + edema (1+ pitting edema legs to knees bilat) Chest (Breasts): Chest: normal inspection of chest Gastrointestinal (Abdomen): normal bowel sounds, soft, nontender, no hepatosplenomegaly Musculoskeletal: Extremities: extremities normal to inspection; no cyanosis and no clubbing Skin: no rashes, warm and dry + lesion (Unroofed 4 cm blister posterior right calf, minimal surrounding erythema) Neurologic: moves all extremities and awake; no focal motor deficits Psychiatric: A+Ox3, euthymic affect Lymphatic: no lymphedema Results & Data Results & Data ([facility]) Vital Signs (Past 12 Hours) Vital Signs Temp Pulse Resp BP BP Pulse Ox O2 Del Method 06/20/22 07:25 Nasal Cannula 06/20/22 10:20 163/69 H 06/20/22 08:31 36.4 C L 69 20 173/83 H 97 Nasal Cannula 06/20/22 07:46 36.4 C L 74 16 181/77 H 90 Nasal Cannula O2 Flow Rate 06/20/22 07:25 3 06/20/22 10:20 06/20/22 08:31 3 06/20/22 07:46 3 Critical Care Results & Data Vital Signs (Past 12 Hours) Vital Signs Temp Pulse Resp BP BP Pulse Ox O2 Del Method 06/20/22 14:11 36.5 C 71 20 160/70 H 96 Nasal Cannula 06/20/22 07:25 Nasal Cannula 06/20/22 10:20 163/69 H 06/20/22 08:31 36.4 C L 69 20 173/83 H 97 Nasal Cannula 06/20/22 07:46 36.4 C L 74 16 181/77 H 90 Nasal Cannula O2 Flow Rate 06/20/22 14:11 3 06/20/22 07:25 3 06/20/22 10:20 06/20/22 08:31 3 06/20/22 07:46 3 Lab & Micro Results (Past 24 Hours) No Data to Display No Data to Display No Data to Display I & O Totals 24 Hours 06/19/22 06/20/22 06/21/22 06:59 06:59 06:59 Intake Total 1220 / 1220 415 / 415 480 / 480 Output Total 1001 / 1001 600 / 600 425 / 425 Balance 219 / 219 -185 / -185 55 / 55 Cumulative 06/10/22 15:14 thru 06/20/22 14:11 Intake Total 9680 Output Total 7826 Balance 1854 RT Ventilator Mngmt (Last Documented) Ventilator Ordered Settings Respiratory Rate 20 06/20/22 14:11 Fraction of Inspired Oxygen 30 06/10/22 20:47 Ventilator - PT Measurements Respiratory Rate 20 PG Care Time/CCT Total # of Minutes Spent Total Time Spent with Patient: Total time spent is greater than 50% in coordination of care (as documented) at patient's floor/unit and/or counseling patient: Coding Level of Care Code 82880 Initial Inpt Care Lvl 3 Diagnoses Acute on chronic heart failure with preserved ejection fraction (HFpEF) I50.33 Respiratory failure with hypoxia and hypercapnia J96.91; J96.92 Pleural effusion J90
--- NOTE | 2022-06-20 14:17 | Procedure Note ---
Procedure Note Date of Service June 20, 2022 Note Procedure: Diagnostic therapeutic ultrasound-guided catheter thoracentesis Senior Product Development Scientist: Dr. Kt Horowitz Indication: Pleural effusion Consent: Signed by patient and verified with timeout prior to procedure Anesthesia: 8 mL's 1% lidocaine without epinephrine local. Procedure: Consent was verified and timeout performed. Appropriate imaging studies were reviewed prior to the procedure. Patient was placed in a seated position and limited thoracic ultrasound was performed of the bilateral chest. Bilateral effusions were noted with compressive atelectasis. The right appear to be slightly larger and we elected to pursue right-sided thoracentesis. Site appropriate for thoracentesis was selected. The skin was prepped and draped in normal sterile fashion. Lidocaine was used for local analgesia. Fluid was aspirated via the finder needle. A small skin carmen was made with the scalpel and the catheter over the needle apparatus was advanced over the rib into the pleural space. Using the syringe one-way valve system, a total of 1500 mL's of pamela/brown fluid was removed. Procedure was terminated due to inability to withdraw additional fluid. The catheter was removed and observed to be intact. A sterile dressing was applied. Post procedure chest x-ray was ordered. Post procedure thoracic ultrasound demonstrated minimal residual fluid present with lung sliding noted. Fluid was sent for cytology, gram stain and culture, AFB stain and culture, glucose, LDH, total protein, pH. The patient tolerated the procedure well without obvious complication Coding CPT Codes Pulmonary/Thoracic - Pulmonary and Thoracic: 30264 Thoracentesis w imaging ([id number]) [facility] [place] Codes (Charges) Pulmonary/Thoracic Procedure 1: Pulmonary and Thoracic: 54312 Thoracentesis w imaging
--- NOTE | 2022-06-20 14:31 | XRay Report ---
SINGLE VIEW CHEST CLINICAL HISTORY: Status post thoracentesis. FINDINGS: An AP, portable, upright chest radiograph is compared to study dated 06/17/2022. The heart is enlarged noting atherosclerotic calcification of the thoracic aorta. There is pulmonary vascular c ongestion. There are layering pleural effusions, left larger than right with dependent consolidation. No pneumothorax is seen. The skeletal structures are osteopenic. The bony thorax is grossly intact. IMPRESSION: 1. Cardiomegaly with pulmonary vascular congestion. 2. Left larger than right pleural effusions with dependent consolidation. These have decreased in siz e from previous. 3. No pneumothorax is seen post procedure. ACT 112: Negative or not required by law. Electronically signed by: Jonathan Sifuentes M.D. 06/20/2022 2:30 PM
[2022-06-20 14:36] LABS: Glucose Pleural Fluid 165 mg/dl; LDH Pleural Fluid 59 U/L; Total Protein Pleural Fluid < 3.0 gm/dl
[2022-06-20 14:47] LABS: Appearance Pleural Fluid Cloudy; Color Pleural Fluid Amber; Lymphocytes, Fluid 35 %; Mono,Macrophage,Mesothelial 49 %; Neutrophils, Fluid 16 %; RBC Pleural Fluid Auto 57000 /uL; Source Pleural Fluid Right Lung; WBC Pleural Fluid Auto 691 /uL
[2022-06-20] MEDS ORDERED: DOCUSATE SODIUM/SENNA 50/8.6MG TAB PO ONE (17:57)
[2022-06-20] MEDS: MIRTAZAPINE TAB 15 MG TAB PO SCH (21:08)
[2022-06-20] MEDS: ATORVASTATIN 40 MG TAB PO SCH (21:08)
[2022-06-20] MEDS: LORazepam 0.5 MG TAB PO SCH (21:14)
--- NOTE | 2022-06-20 22:19 | Hospitalist Progress Note ---
Date of Service June 20, 2022 Assessment & Plan (1) Acute on chronic heart failure with preserved ejection fraction (HFpEF): Plan: Presented to the ER with worsening shortness of breath for several days with oxygen needs as high as 9 L; down to 3 L by nasal cannula currently Due to miscommunication patient was only taking torsemide 20 mg twice daily at home (discharge instructions from recent admission recommend 60 mg twice daily). Chest x-ray with mild pulmonary congestion and small bilateral pleural effusions. Improving, I's and O's not accurately recorded but his weight is down and he is clinically somewhat improved Does have some mild hypernatremia He was initially on Lasix 80 mg IV twice daily but this was decreased to 40 Mg IV twice daily on 06/15 despite being on lasix BID, oxygen requirements have not improved. -chest x ray is showing pleural effusions -d/w Ashwini Aguirre, feel that reaching limit with diuretics, will reach out to pulmonary for possible thoracocenthesis: -Eliquis has been held since AM on 06/18, plan for thoracocenthesis on 06/20 -switched to lasix 40 mg on 06/18 -increased to 60mg daily on 06/20, increased metoprolol on 06/20 -awaiting input from pulmonary. Strict intake and output and daily standing weights. Heart failure clinic consulted and appreciate recommendations. -Of note, he takes potassium chloride 40 mill equivalents p.o. twice daily at home and is on that here-follow potassium closely especially in the setting of CKD stage III -potassium has been held (2) Acute and chronic respiratory failure with hypoxia: Plan: Secondary to heart failure as above Improving almost back to baseline to-3 LNC O2 (3) Hypernatremia: Plan: As above, possibly due to overdiuresis Follow BMP (4) Blister: Plan: Very painful, posterior right calf Likely form secondary to lower extremity edema Pain not controlled with Tylenol-we will add hydrocodone as needed OPTi foam to the wound for now and consult wound care nurse is pending monitor for signs of infection developing but none currently (5) Chronic anemia: Plan: Hemoglobin fairly stable at 12, macrocytic B12 and folate were normal in 12/2021 No iron studies have been checked but seems unlikely given the macrocytosis that he would have iron deficiency TSH normal in 07/2021 Most likely anemia of chronic disease with chronic kidney disease, however also has a known liver mass so may be related to liver disease (6) Anxiety: Plan: -Continue Remeron nightly. -Patient is on Ativan nightly at home but it was ordered as needed here and he did not receive a dose for 4 days straight He finally received 1 dose on the night of 06/14 He is feeling "not quite right on 06/15-suspect could be due to benzodiazepine withdrawal beginning -Make lorazepam 0.5 Mg p.o. nightly scheduled dose -Confirmed in PDMP that he does have this prescribed although it does not seem that he picks it up often enough to take it on a scheduled basis (7) CVA (cerebral vascular accident): Plan: -Was hospitalized last month for this. -Eliquis should be renally dosed at 2.5 Mg p.o. twice daily as he is 81 years old and his creatinine is greater than 1.5-changed this dose today and this will need to be corrected on home medications -Continue atorvastatin. -No evidence of new focal neurologic deficits, and brief periods of confusion with re-directability have been noted on previous admissions. (8) Elevated troponin I level: Plan: -Troponin 42.6 -> 36.4. -Multifactorial with demand ischemia and decreased clearance (due to CKD). -No acute ECG changes noted when compared to his last ECG, elevated troponin likely related to demand . -Patient denies chest pain and pressure. -Continue to monitor on tele. (9) Chronic kidney disease, stage 4 (severe): Plan: -Baseline CKD stage G4/A2. Baseline Cr 2.5 w/ EGFR 23 cc/min. -Admission creatinine 1.80 and remains fairly stable around then at this time suspect improved creatinine on admission is due to fluid overload. Continue diuresis. -Daily BMP while admitted. Avoid nephrotoxins and renally dose medications as indicated Follow urine output (10) COPD (chronic obstructive pulmonary disease): Plan: No acute issues -Continue ipratropium-albuterol. -Incentive spirometry, flutter therapy. -Goal SpO2 between 88-92%, is currently at goal supplemental O2 need of 2-3L NC. (11) Hypothyroidism: Plan: -Continue levothyroxine . TSH normal earlier this year (12) Permanent atrial fibrillation: Plan: - Continue Eliquis, metoprolol. Rates are controlled, is not on telemetry anymore (13) TAMIKA (obstructive sleep apnea): Plan: - Does not use CPAP as he is claustrophobic, however did tolerate BiPAP on day of admission. Unfortunately patient refusing trial of CPAP at this time. (14) Hypertension: Plan: Pressures are mildly elevated -Continue metoprolol and Imdur. -Patient placed on 2 inches of nitro paste in the ED for hypertension with systolics in the 190's. Blood pressures improved and then this was discontinued. -Hydralazine 5 mg IV every 6 hours as needed for systolic blood pressures greater than 180. Patient has been on hydralazine 50 mg p.o. 3 times daily in the past, could consider something like this if his pressures continue to be elevated. (15) Diabetes mellitus type 2, controlled, with complications: Plan: -Normally on 70/30 at home. Hold basal insulin unless blood sugars greater than 180. Sliding scale insulin coverage ordered. A1c 6.0% in March of this year. (16) Liver mass: Plan: -Previously found on prior admissions. 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 F indings are suspicious for a primary hepatic malignancy such as hepatocellular carcinoma. -Per his latest PCP note his scheduled outpatient liver biopsy with GI was cancelled due to recent stroke. -Is supposed to get outpatient MRI of the liver. -Liver function currently stable. Patient will definitely need to follow-up on this after discharge (17) BPH (benign prostatic hyperplasia): Plan: No acute issues, is voiding Not on medications for this Continue to monitor for any lower urinary tract symptoms Plan Disposition- PT and OT consulted; recommending rehab. Insurance denied [facility]. [id number] not completed by myself as he has been repeatedly denied in the past for acute rehab and his insurance physician is notorious for denying rehab stays. Patient and agreeable to referral to assisted facility. Case management is following up on this. He is not yet medically stable for discharge - FULL CODE Admission and Anticipated Discharge Date Admission Date: June 10, 2022 Subjective Patient still feels SOB. Review of Systems Review of Systems: All systems reviewed & are unremarkable except as noted in HPI & below Physical Exam Constitutional: WD/WN, vitals as above + obese Eyes: + anicteric sclerae Neck: trachea midline, no thyromegaly Respiratory: normal respiratory effort; no cough Auscultation: + diminished lung sounds (At the bases bilaterally); no crackles, no rhonchi and no wheezes Cardiovascular: RRR, no murmur, no edema Rate/Rhythm: regular rate, regular rhythm and + irregularly irregular Heart Sounds: no murmur Extremities: + edema (1+ pitting edema legs to knees bilat) Chest (Breasts): Chest: normal inspection of chest Gastrointestinal (Abdomen): normal bowel sounds, soft, nontender, no hepatosplenomegaly Musculoskeletal: Extremities: extremities normal to inspection; no cyanosis and no clubbing Skin: no rashes, warm and dry + lesion (Unroofed 4 cm blister posterior right calf, minimal surrounding erythema) Neurologic: moves all extremities and awake; no focal motor deficits Psychiatric: A+Ox3, euthymic affect Lymphatic: no lymphedema Results & Data Results & Data ([facility]) Vital Signs (Past 12 Hours) Vital Signs Temp Pulse Resp BP BP Pulse Ox O2 Del Method 06/20/22 15:46 36.7 C 72 16 136/69 95 Nasal Cannula 06/20/22 14:11 36.5 C 71 20 160/70 H 96 Nasal Cannula 06/20/22 10:20 163/69 H O2 Flow Rate 06/20/22 15:46 3 06/20/22 14:11 3 06/20/22 10:20 PG Care Time/CCT Total # of Minutes Spent Total Time Spent with Patient: Total time spent is greater than 50% in coordination of care (as documented) at patient's floor/unit and/or counseling patient: Coding Level of Care Code 37610 Subseq Hosp Care Lvl 2 Diagnoses Acute on chronic heart failure with preserved ejection fraction (HFpEF) I50.33 Acute and chronic respiratory failure with hypoxia J96.21 Hypernatremia E87.0 Blister T14.8XXA Chronic anemia D64.9 Anxiety F41.9 CVA (cerebral vascular accident) I63.9 Elevated troponin I level R77.8 Chronic kidney disease, stage 4 (severe) N18.4 COPD (chronic obstructive pulmonary disease) J44.9 Hypothyroidism E03.9 Hypothyroidism type: acquired Permanent atrial fibrillation I48.2 TAMIKA (obstructive sleep apnea) G47.33 Hypertension I10 Diabetes mellitus type 2, controlled, with complications E11.8 Liver mass R16.0 BPH (benign prostatic hyperplasia) N40.0 Lower urinary tract symptom presence: symptoms absent (1) BPH (benign prostatic hyperplasia) Lower urinary tract symptom presence: symptoms absent Qualified Code(s): N40.0 - Benign prostatic hyperplasia without lower urinary tract symptoms (2) Hypothyroidism Hypothyroidism type: acquired Qualified Code(s): E03.9 - Hypothyroidism, u nspecified
[2022-06-21] MEDS: LEVOTHYROXINE SODIUM 75 MCG TABLET PO SCH (05:47)
[2022-06-21 07:38] LABS: Hematocrit (blood only) 38.5 % (40.1-51.0); Hemoglobin 11.8 g/dl (14.0-18.0); Mean Corpuscular Hemoglobin 31.1 pg (25.0-34.0); Mean Corpuscular Hgb Conc 30.6 g/dL (32.0-36.0); Mean Corpuscular Volume 101.6 fL (80.0-100.0); Mean Platelet Volume 11.1 fL (9.4-12.4); Platelet Count 165 K/uL (130-400); RDW Standard Deviation 55.6 fL (36.4-46.3); Red Blood Count 3.79 M/uL (4.63-6.08)
[2022-06-21 07:59] LABS: BUN Creatinine Ratio 28.9 (10-20); Creatinine Clr Calc Pharmacy 41.4 ml/min; Est GFR (African American) 42.3 ml/min; Est GFR (Non-African American) 36.5 ml/min; Potassium 3.9 mmol/L (3.5-5.1)
[2022-06-21] MEDS: allopurinoL 300 MG TAB PO SCH (09:11)
[2022-06-21] MEDS: ARTIFICIAL TEARS OP SCH ×4 (09:11→20:17)
[2022-06-21] MEDS: GABAPENTIN 100 MG CAP PO SCH ×2 (09:12→20:16)
[2022-06-21] MEDS: CHOLECALCIFEROL 1,000 UNITS 25 MCG TAB PO SCH (09:12)
[2022-06-21] MEDS: MULTIVITAMIN TAB PO SCH (09:13)
[2022-06-21] MEDS: ISOSORBIDE MONO EXTENDED REL 60 MG TABCR PO SCH (09:15)
[2022-06-21] MEDS: METOPROLOL SUCC 50MG EXT REL TAB PO SCH (09:16)
[2022-06-21] MEDS: INSULIN ASPART PER UNIT SC SCH ×4 (09:21→20:24)
[2022-06-21] MEDS: APIXABAN 2.5 MG TAB PO SCH (10:30)
[2022-06-21] MEDS: FUROSEMIDE INJ 20 MG/2 ML VIAL IV SCH (10:30)
[2022-06-21] MEDS: CHOLESTYRAMINE LIGHT 4 GM PKT PO SCH ×2 (10:31→21:38)
--- NOTE | 2022-06-21 11:39 | Pulmonology Progress Note ---
Date of Service June 21, 2022 Assessment & Plan (1) Acute on chronic heart failure with preserved ejection fraction (HFpEF): (2) Respiratory failure with hypoxia and hypercapnia: (3) Pleural effusion: Plan Impression: 81-year-old male with history of heart failure admitted with same. He has bilateral pleural effusions. He underwent thoracentesis 06/20/2022 on the right. He symptomatically better and we plan on doing the left however his anticoagulations been restarted by his primary service. Recommendations: 1. Transudative effusion on the right. Await cytology. 2. I planned on doing the left however the patient is now back on his apixaban by his primary service. If his anticoagulation can be held for 24 to 48 hours, would consider tapping the effusion on the left. Otherwise, continue diuresis and outpatient follow-up. 3. Thoracentesis is not long-term management strategy for pleural effusions related to heart failure 4. Pulmonary hypertension: Secondary to above. No indication for pulmonary vasodilators and any other therapy other than aggressive diuresis and optimization of fluid status. 5. Sleep disordered breathing: The patient's been intolerant to CPAP in the past. He understands that it may offer him some benefit with regards to heart failure and atrial fibrillation. Declines currently. Pulmonary signed off at this point time. Feel free to contact us if the patient needs additional thoracentesis or if new pulmonary issues arise. Admission and Anticipated Discharge Date Admission Date: June 10, 2022 Subjective Patient seen and examined. And reviewed. He is sitting up in a chair. He states he feels better after the thoracentesis yesterday. I planned on doing the other side today however it appears that his primary service is restarted his anticoagulation about an hour ago. He is back on Eliquis. Patient's not reporting any fevers chills chest pain or productive cough. Review of Systems Review of Systems: All systems reviewed & are unremarkable except as noted in Subjective Physical Exam Constitutional: WD/WN, vitals as above + obese Eyes: + anicteric sclerae Neck: trachea midline, no thyromegaly Respiratory: normal respiratory effort; no cough Auscultation: + diminished lung sounds (At the bases bilaterally); no crackles, no rhonchi and no wheezes Cardiovascular: RRR, no murmur, no edema Rate/Rhythm: regular rate, regular rhythm and + irregularly irregular Heart Sounds: no murmur Extremities: + edema (1+ pitting edema legs to knees bilat) Chest (Breasts): Chest: normal inspection of chest Gastrointestinal (Abdomen): normal bowel sounds, soft, nontender, no hepatosplenomegaly Musculoskeletal: Extremities: extremities normal to inspection; no cyanosis and no clubbing Skin: no rashes, warm and dry + lesion (Unroofed 4 cm blister posterior right calf, minimal surrounding erythema) Neurologic: moves all extremities and awake; no focal motor deficits Psychiatric: A+Ox3, euthymic affect Lymphatic: no lymphedema Results & Data Results & Data ([facility]) Vital Signs (Past 12 Hours) Vital Signs Temp Pulse Resp BP BP Pulse Ox O2 Del Method 06/21/22 09:15 70 155/88 H 06/21/22 07:42 36.4 C L 78 16 157/71 H 96 Nasal Cannula O2 Flow Rate 06/21/22 09:15 06/21/22 07:42 3 Laboratory Results 06/21/22 07:20 06/21/22 07:20 Fluid appears consistent with transudative etiology. Diagnostic Findings Post procedure chest x-ray was reviewed. The right-sided effusion appears resolved. There is persistent left effusion. PG Care Time/CCT Total # of Minutes Spent Total Time Spent with Patient: Total time spent is greater than 50% in coordination of care (as documented) at patient's floor/unit and/or counseling patient: Coding Level of Care Code 19000 Subseq Hosp Care Lvl 2 Diagnoses Acute on chronic heart failure with preserved ejection fraction (HFpEF) I50.33 Respiratory failure with hypoxia and hypercapnia J96.91; J96.92 Pleural effusion J90
--- NOTE | 2022-06-21 13:41 | Hospitalist Progress Note ---
Date of Service June 21, 2022 Assessment & Plan (1) Acute on chronic heart failure with preserved ejection fraction (HFpEF): Plan: Presented to the ER with worsening shortness of breath for several days with oxygen needs as high as 9 L; down to 3 L by nasal cannula currently Due to miscommunication patient was only taking torsemide 20 mg twice daily at home (discharge instructions from recent admission recommend 60 mg twice daily). Does have some mild hypernatremia suggesting mild intravascular depletion but overall remains hypervolemic - suspect initial 80mg IV BID dosing was causing daily intravascular depletion. [06/10] started on Lasix 80mg IV BID [06/15] switched to 40mg IV BID [06/17] switched to 40mg IV daily [06/20] switched to 60mg IV daily - we will continue on this dose today as previously recommended by cardiology Usual dose torsemide 60mg PO BID -> equivalent of Lasix 60 -> 120mg IV BID. Therefore around a quarter to half his usual dose. Despite this BNP has improved from 1096 -> 371. I&Os not accurate Daily weights (2) Acute and chronic respiratory failure with hypoxia: Plan: Secondary to heart failure as above Improving almost back to baseline to-3 LNC O2 (3) Hypernatremia: Plan: As above, improving with slower rate of diuresis Follow BMP (4) Chronic anemia: Plan: Hemoglobin fairly stable at 12, macrocytic B12 and folate were normal in 12/2021 No iron studies have been checked but seems unlikely given the macrocytosis that he would have iron deficiency TSH normal in 07/2021 Most likely anemia of chronic disease with chronic kidney disease, however also has a known liver mass so may be related to liver disease (5) Anxiety: Plan: -Continue Remeron nightly. -Make lorazepam 0.5 Mg p.o. nightly scheduled dose -Confirmed in PDMP that he does have this prescribed although it does not seem that he picks it up often enough to take it on a scheduled basis (6) CVA (cerebral vascular accident): Plan: -Was hospitalized last month for this. -Eliquis should be renally dosed at 2.5 Mg p.o. twice daily as he is 81 years old and his creatinine is greater than 1.5 - currently on hold for thoracocentesis on left side -Continue atorvastatin. -No evidence of new focal neurologic deficits, and brief periods of confusion with re-directability have been noted on previous admissions. (7) Elevated troponin I level: Plan: Secondary to demand ischemia (8) Chronic kidney disease, stage 4 (severe): Plan: -Baseline CKD stage G4/A2. (9) COPD (chronic obstructive pulmonary disease): Plan: No acute issues -Continue ipratropium-albuterol. -Incentive spirometry, flutter therapy. -Goal SpO2 between 88-92%, is currently at goal supplemental O2 need of 2-3L NC. (10) Hypothyroidism: Plan: -Continue levothyroxine. TSH normal earlier this year (11) Permanent atrial fibrillation: Plan: - metoprolol for rate control, Eliquis to restart post thoracocentesis (12) TAMIKA (obstructive sleep apnea): Plan: - Does not use CPAP as he is claustrophobic, however did tolerate BiPAP on day of admission. Now declining CPAP at night (13) Hypertension: Plan: Continue on metoprolol succinate 150 mg p.o. daily, isosorbide mononitrate 120 mg p.o. daily, Lasix as above (14) Diabetes mellitus type 2, controlled, with complications: Plan: -Normally on 70/30 at home. Hold basal insulin unless blood sugars greater than 180. Sliding scale insulin coverage ordered. A1c 6.0% in March of this year. (15) Liver mass: Plan: -Previously found on prior admissions. 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 Findings are suspicious for a primary hepatic malignancy such as hepatocellular carcinoma. -Per his latest PCP note his scheduled outpatient liver biopsy with GI was cancelled due to recent stroke. -Is supposed to get outpatient MRI of the liver. -Liver function currently stable. Patient will definitely need to follow-up on this after discharge (16) BPH (benign prostatic hyperplasia): Plan: No acute issues, is voiding Not on medications for this Continue to monitor for any lower urinary tract symptoms Plan VTE prophylaxis -Eliquis on hold for thoracocentesis Diet -low-sodium, type 2 diabetes, fluid restrict to 1500 mL Disposition - continued inpatient stay until euvolemic, planning on rehab on discharge Admission and Anticipated Discharge Date Admission Date: June 10, 2022 Subjective Patient reports significant improvement in shortness of breath since admission although has stagnated for the last number of days. He reports significant improvement after thoracocentesis yesterday. Unfortunately Eliquis was restarted this morning and therefore could not have thoracocentesis on the other side. Review of Systems Review of Systems: All systems reviewed & are unremarkable except as noted in Subjective Physical Exam Constitutional: WD/WN, vitals as above + obese Respiratory: normal respiratory effort Auscultation: + diminished lung sounds (At the bases bilaterally); no crackles, no rhonchi and no wheezes Cardiovascular: Rate/Rhythm: regular rate and + irregularly irregular Heart Sounds: no murmur Extremities: + edema (1+ pitting edema legs to knees bilat ) Chest (Breasts): Chest: normal inspection of chest Gastrointestinal (Abdomen): normal bowel sounds, soft, nontender, no hepatosplenomegaly Skin: no rashes, warm and dry Neurologic: moves all extremities and awake; no focal motor deficits Psychiatric: A+Ox3, euthymic affect Results & Data Results & Data ([facility]) Vital Signs (Past 12 Hours) Vital Signs Temp Pulse Resp BP BP Pulse Ox O2 Del Method 06/21/22 09:15 70 155/88 H 06/21/22 07:42 36.4 C L 78 16 157/71 H 96 Nasal Cannula O2 Flow Rate 06/21/22 09:15 06/21/22 07:42 3 PG Care Time/CCT Total # of Minutes Spent Total Time Spent with Patient: Total time spent is greater than 50% in coordination of care (as documented) at patient's floor/unit and/or counseling patient: Coding Level of Care Code 28176 Subseq Hosp Care Lvl 2 Diagnoses Acute on chronic heart failure with preserved ejection fraction (HFpEF) I50.33 Acute and chronic respiratory failure with hypoxia J96.21 Hypernatremia E87.0 Chronic anemia D64.9 Anxiety F41.9 CVA (cerebral vascular accident) I63.9 Elevated troponin I level R77.8 Chronic kidney disease, stage 4 (severe) N18.4 COPD (chronic obstructive pulmonary disease) J44.9 Hypothyroidism E03.9 Hypothyroidism type: acquired Permanent atrial fibrillation I48.2 TAMIKA (obstructive sleep apnea) G47.33 Hypertension I10 Diabetes mellitus type 2, controlled, with complications E11.8 Liver mass R16.0 BPH (benign prostatic hyperplasia) N40.0 Lower urinary tract symptom presence: symptoms absent (1) BPH (benign prostatic hyperplasia) Lower urinary tract symptom presence: symptoms absent Qualified Code(s): N40.0 - Benign prostatic hyperplasia without lower urinary tract symptoms (2) Hypothyroidism Hypothyroidism type: acquired Qualified Code(s): E03.9 - Hypothyroidism, unspecified
[2022-06-21] MEDS: MIRTAZAPINE TAB 15 MG TAB PO SCH (20:16)
[2022-06-21] MEDS: ATORVASTATIN 40 MG TAB PO SCH (20:16)
[2022-06-21] MEDS: LORazepam 0.5 MG TAB PO SCH (20:20)
[2022-06-21] MEDS: MELATONIN 3 MG TAB PO PRN (22:18)
[2022-06-22] MEDS: LEVOTHYROXINE SODIUM 50 MCG TABLET PO SCH (05:59)
[2022-06-22] MEDS: MULTIVITAMIN TAB PO SCH (08:45)
[2022-06-22] MEDS: ISOSORBIDE MONO EXTENDED REL 60 MG TABCR PO SCH (08:46)
[2022-06-22] MEDS: CHOLECALCIFEROL 1,000 UNITS 25 MCG TAB PO SCH (08:46)
[2022-06-22] MEDS: allopurinoL 300 MG TAB PO SCH (08:46)
[2022-06-22] MEDS: GABAPENTIN 100 MG CAP PO SCH ×2 (08:46→20:18)
[2022-06-22] MEDS: METOPROLOL SUCC 50MG EXT REL TAB PO SCH (08:47)
[2022-06-22] MEDS: FUROSEMIDE INJ 20 MG/2 ML VIAL IV SCH (08:48)
[2022-06-22] MEDS: ARTIFICIAL TEARS OP SCH ×4 (08:48→20:19)
[2022-06-22] MEDS: INSULIN ASPART PER UNIT SC SCH ×4 (08:49→21:25)
[2022-06-22] MEDS: CHOLESTYRAMINE LIGHT 4 GM PKT PO SCH ×2 (10:41→23:16)
--- NOTE | 2022-06-22 11:02 | Heart Failure Progress Note ---
Date of Service June 22, 2022 Assessment & Plan (1) Acute on chronic heart failure with preserved ejection fraction (HFpEF): (2) Acute and chronic respiratory failure with hypoxia: (3) COPD (chronic obstructive pulmonary disease): (4) Permanent atrial fibrillation: (5) TAMIKA (obstructive sleep apnea): (6) Lower extremity edema: Plan 1. HFpEF: He is hypervolemic on exam today. His symptoms are improved but still not at baseline. His weight is below baseline. Continue standing scale weights during hospitalization. His volume status has been tenuous in recent months. His Metolazone was discontinued due to FRANK. He was prescribed Torsemide 60 mg BID but was likely only taking 20 mg BID after discharge due to a miscommunication. Kidney function and electrolytes stable. No labs today. Creatinine is actually at the low end of his recent baseline. Would continue to optimize his volume status. Continue Lasix 60 mg IV with a goal of negative 1-2L per day. I&Os poorly documented. Recommend documenting moving forward and patient/nursing staff are aware. Continue daily weights- STANDING weights only. Continue low sodium diet. 2. Idiopathic cardiomyopathy: Normal coronary arteries. Most recent echocardiogram shows normal LV systolic function. He is on an appropriate medical therapy. Continue Metoprolol 150 mg daily- reduced to allow for physiologic response. Lisinopril discontinued in December 2021 hospitalization due to FRANK. He does not currently qualify for an ICD. 3. Hypertension: Currently hypertensive. Continue to optimize volume status. 4. Atrial fibrillation: Heart rate appears adequately controlled and he is asymptomatic. Continue anticoagulation for stroke risk reduction. Eliquis dose increased to 5 mg BID recently. Kidney function improved so at this time dosing is appropriate. 5. TAMIKA: Does not tolerate CPAP at home. He did well on the BiPAP last night. Encourage compliance at home. Consider different masks if not already attempted. 6. Pulmonary hypertension: Moderate on 12/2021 echo. Optimize. Consider repeat echo once stable. Disposition: Will continue to follow during hospitalization. Anticipate close outpatient follow up with the heart failure program. Looking into placement options. Admission and Anticipated Discharge Date Admission Date: June 10, 2022 Subjective Patient sitting up in the bedside chair this am. He is resting comfortably. He reports feeling improved s/p thoracentesis. He has not been ambulating much but is more comfortable at rest. He continues O2 3L which is his baseline. He seems somewhat confused with some of his comments but is alert to place and time. Weight is below his baseline per standing scale. 236 lb this am. He is responding well to Lasix IV 60 mg. No labs available today. Eliquis was restarted but is now on hold again for possible L thoracentesis. 06/20 CXR with pulmonary congestion, L>R pleural effusion. Physical Exam Physical Exam: Constitutional: Alert, oriented, in no acute distress. O2 3L HEENT: Head is atraumatic and normocephalic. EOMs intact. Sclera anicteric. Face is symmetric. No perioral cyanosis. Mucous membranes moist. Mild periorbital edema noted Neck: Supple, no JVD, no carotid bruits. - HJR Pulmonary: Slightly increased respiratory effort, decreased breath sounds at the bases L>R. Cardiac: Irregularly irregular, normal S1 and S2, no gallops, no rubs, no murmurs Extremities: No clubbing or cyanosis. Pulses intact. 1-2+ edema to the knees. Abdomen: Normal bowel sounds, soft, non-tender, no abdominal mass palpated Skin: Chronic venous stasis skin changes of bilateral lower extremities. No rash Neurological: Oriented to person, place, and time Results & Data ([facility]) Vital Signs (Past 12 Hours) Vital Signs Temp Pulse Resp BP Pulse Ox O2 Del Method O2 Flow Rate 06/22/22 07:35 97.5 F L 67 16 177/82 H 97 Nasal Cannula 3 PG Care Time/CCT Total # of Minutes Spent Total Time Spent with Patient: Total time spent is greater than 50% in coordination of care (as documented) at patient's floor/unit and/or counseling patient: Coding Level of Care Code 50837 Subseq Hosp Care Lvl 3 Diagnoses Acute on chronic heart failure with preserved ejection fraction (HFpEF) I50.33 Acute and chronic respiratory failure with hypoxia J96.21 COPD (chronic obstructive pulmonary disease) J44.9 Permanent atrial fibrillation I48.2 TAMIKA (obstructive sleep apnea) G47.33 Lower extremity edema R60.0
[2022-06-22 17:58] LABS: BUN Creatinine Ratio 24.5 (10-20); Calcium 8.9 mg/dl (8.5-10.1); Creatinine Clr Calc Pharmacy 33.2 ml/min; Est GFR (African American) 32.3 ml/min; Est GFR (Non-African American) 27.9 ml/min; Potassium 3.8 mmol/L (3.5-5.1)
[2022-06-22] MEDS: ATORVASTATIN 40 MG TAB PO SCH (20:17)
[2022-06-22] MEDS: MIRTAZAPINE TAB 15 MG TAB PO SCH (20:17)
[2022-06-22] MEDS: LORazepam 0.5 MG TAB PO SCH (20:18)
[2022-06-22] MEDS: MELATONIN 3 MG TAB PO PRN (20:18)
--- NOTE | 2022-06-22 22:33 | Hospitalist Progress Note ---
Date of Service June 22, 2022 Assessment & Plan (1) Acute on chronic heart failure with preserved ejection fraction (HFpEF): Plan: Presented to the ER with worsening shortness of breath for several days with oxygen needs as high as 9 L; down to 3 L by nasal cannula currently Due to miscommunication patient was only taking torsemide 20 mg twice daily at home (discharge instructions from recent admission recommend 60 mg twice daily). Does have some mild hypernatremia suggesting mild intravascular depletion but overall remains hypervolemic - suspect initial 80mg IV BID dosing was causing daily intravascular depletion. [06/10] started on Lasix 80mg IV BID [06/15] switched to 40mg IV BID [06/17] switched to 40mg IV daily [06/20] switched to 60mg IV daily - we will continue on this dose today as previously recommended by cardiology and his heart failure nurse practitioner today Usual dose torsemide 60mg PO BID -> equivalent of Lasix 60 -> 120mg IV BID. Therefore around a quarter to half his usual dose. Despite this BNP has improved from 1096 -> 371 even with lower dosing of Lasix as above. I&Os not accurate - please accurately record all intake and output Daily standing weights S/p thoracocentesis on the right side June [address] Horowitz - transudative effusion with negative microbiology to date We will consult pulmonology tomorrow regarding thoracocentesis on his left. Chest x-ray ordered for the morning. (2) Acute and chronic respiratory failure with hypoxia: Plan: Secondary to heart failure as above Improving almost back to baseline to-3 LNC O2 (3) Hypernatremia: Plan: As above, improving with slower rate of diuresis Follow BMP (4) Chronic anemia: Plan: Hemoglobin fairly stable at 12, macrocytic B12 and folate were normal in 12/2021 No iron studies have been checked but seems unlikely given the macrocytosis that he would have iron deficiency TSH normal in 07/2021 Most likely anemia of chronic disease with chronic kidney disease, however also has a known liver mass so may be related to liver disease (5) Anxiety: Plan: -Continue Remeron nightly. -Make lorazepam 0.5 Mg p.o. nightly scheduled dose -Confirmed in PDMP that he does have this prescribed although it does not seem that he picks it up often enough to take it on a scheduled basis (6) CVA (cerebral vascular accident): Plan: -Was hospitalized last month for this. -Previous notes reported he should be on Eliquis 2.5 mg however he had a stroke on this dose therefore he was recently decreased to 5 mg. Given his obesity this appears to be reasonable. -Continue atorvastatin. (7) Elevated troponin I level: Plan: Secondary to demand ischemia (8) Chronic kidney disease, stage 4 (severe): Plan: -Baseline CKD stage G4/A2. (9) COPD (chronic obstructive pulmonary disease): Plan: No acute issues -Continue ipratropium-albuterol. -Incentive spirometry, flutter therapy. -Goal SpO2 between 88-92%, is currently at goal supplemental O2 need of 2-3L NC. (10) Hypothyroidism: Plan: -Continue levothyroxine. TSH normal earlier this year (11) Permanent atrial fibrillation: Plan: - metoprolol for rate control, Eliquis to restart post thoracocentesis (12) TAMIKA (obstructive sleep apnea): Plan: - Does not use CPAP as he is claustrophobic, however did tolerate BiPAP on day of admission. Now declining CPAP at night (13) Hypertension: Plan: Continue on metoprolol succinate 150 mg p.o. daily, isosorbide mononitrate 120 mg p.o. daily, Lasix as above (14) Diabetes mellitus type 2, controlled, with complications: Plan: -Normally on 70/30 at home. A1c 6.0% in March of this year. Glucose 96-127 yesterday. Novolog: --Goal BSG Range: Low 120 mg/dL, High 150 mg/dL --Correction Factor: 40 mg/dL/unit -- We will discontinue carbohydrate coverage --BSGs ACHS if eating, q6h if npo No basal dosing appears to be required. (15) Liver mass: Plan: -Previously found on prior admissions. 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 Findings are suspicious for a primary hepatic malignancy such as hepatocellular carcinoma. -Per his latest PCP note his scheduled outpatient liver biopsy with GI was cancelled due to recent stroke. -Is supposed to get outpatient MRI of the liver. -Liver function currently stable. Follow-up after discharge (16) BPH (benign prostatic hyperplasia): Plan: No acute issues, is voiding Not on medications for this Continue to monitor for any lower urinary tract symptoms Plan VTE prophylaxis -Eliquis on hold for thoracocentesis Diet -low-sodium, type 2 diabetes, fluid restrict to 1500 mL Disposition - continued inpatient stay until euvolemic, planning on rehab on discharge Admission and Anticipated Discharge Date Admission Date: June 10, 2022 Subjective No significant change from yesterday. No chest pain. He reports that shortness of breath is mostly at baseline. No cough. No fever or chills. Review of Systems Review of Systems: All systems reviewed & are unremarkable except as noted in Subjective Physical Exam Constitutional: WD/WN, vitals as above + obese Respiratory: normal respiratory effort Auscultation: + diminished lung sounds (At the bases bilaterally); no crackles, no rhonchi and no wheezes Cardiovascular: Rate/Rhythm: regular rate and + irregularly irregular Heart Sounds: no murmur Extremities: + edema (1+ pitting edema legs to knees bilat) Chest (Breasts): Chest: normal inspection of chest Gastrointestinal (Abdomen): normal bowel sounds, soft, nontender, no hepatosplenomegaly Skin: no rashes, warm and dry Neurologic: moves all extremities and awake; no focal motor deficits Psychiatric: A+Ox3, euthymic affect Results & Data Results & Data ([facility]) Vital Signs (Past 12 Hours) Vital Signs Temp Pulse Resp BP BP Pulse Ox O2 Del Method 06/22/22 21:50 36.8 C 64 18 144/76 H 95 Nasal Cannula 06/22/22 15:55 36.7 C 66 16 158/95 H 97 Nasal Cannula 06/22/22 11:49 Nasal Cannula O2 Flow Rate 06/22/22 21:50 3 06/22/22 15:55 3 06/22/22 11:49 3 PG Care Time/CCT Total # of Minutes Spent Total Time Spent with Patient: Total time spent is greater than 50% in coordination of care (as documented) at patient's floor/unit and/or counseling patient: Coding Level of Care Code 59702 Subseq Hosp Care Lvl 2 Diagnoses Acute on chronic heart failure with preserved ejection fraction (HFpEF) I50.33 Acute and chronic respiratory failure with hypoxia J96.21 Hypernatremia E87.0 Chronic anemia D64.9 Anxiety F41.9 CVA (cerebral vascular accident) I63.9 Elevated troponin I level R77.8 Chronic kidney disease, stage 4 (severe) N18.4 COPD (chronic obstructive pulmonary disease) J44.9 Hypothyroidism E03.9 Hypothyroidism type: acquired Permanent atrial fibrillation I48.2 TAMIKA (obstructive sleep apnea) G47.33 Hypertension I10 Diabetes mellitus type 2, controlled, with complications E11.8 Liver mass R16.0 BPH (benign prostatic hyperplasia) N40.0 Lower urinary tract symptom presence: symptoms absent (1) Hypothyroidism Hypothyroidism type: acquired Qualified Code(s): E03.9 - Hypothyroidism, unspecified (2) BPH (benign prostatic hyperplasia) Lower urinary tract symptom presence: symptoms absent Qualified Code(s): N40.0 - Benign prostatic hyperplasia without lower urinary tract symptoms
[2022-06-23] MEDS: LEVOTHYROXINE SODIUM 75 MCG TABLET PO SCH (06:21)
[2022-06-23] MEDS ORDERED: TORSEMIDE 10 MG TAB PO SCH (09:45)
[2022-06-23] MEDS: METOPROLOL SUCC 50MG EXT REL TAB PO SCH (09:50)
[2022-06-23] MEDS: MULTIVITAMIN TAB PO SCH (09:51)
[2022-06-23] MEDS: ISOSORBIDE MONO EXTENDED REL 60 MG TABCR PO SCH (09:51)
[2022-06-23] MEDS: CHOLECALCIFEROL 1,000 UNITS 25 MCG TAB PO SCH (09:52)
[2022-06-23] MEDS: GABAPENTIN 100 MG CAP PO SCH ×2 (09:52→20:43)
[2022-06-23] MEDS: allopurinoL 300 MG TAB PO SCH (09:52)
[2022-06-23] MEDS: ARTIFICIAL TEARS OP SCH ×4 (09:53→20:42)
[2022-06-23] MEDS: INSULIN ASPART PER UNIT SC SCH ×4 (09:55→20:42)
--- NOTE | 2022-06-23 10:34 | Pulmonology Progress Note ---
Date of Service June 23, 2022 Assessment & Plan (1) Acute on chronic heart failure with preserved ejection fraction (HFpEF): (2) Respiratory failure with hypoxia and hypercapnia: (3) Pleural effusion: Plan Impression: 81-year-old male with history of heart failure admitted with same. He has bilateral pleural effusions. He underwent thoracentesis 06/20/2022 on the right. He symptomatically better -- Bilateral pleural effusion Etiology is likely cardiac S/p right-sided thoracentesis 06/20/2022 --> transudative Still has left-sided pleural effusion -- History of TAMIKA Not able to tolerate CPAP I do think is going to benefit from CPAP/BiPAP -- Pulmonary hypertension Type II Continue with diuresis Plan: Last dose of apixaban was 10:30 AM on 06/21/2022. For thoracentesis later today Risk and benefits explained to the patient in depth Consent signed, witnessed and put in the chart Recommend continuing with diuresis Please note the above document was generated using voice recognition software. It may contain grammatical, syntax or spelling errors.Any formal questions or concerns about the content, text or information contained within the body of this dictation should be directly addressed to the provider for clarification. Admission and Anticipated Discharge Date Admission Date: June 10, 2022 Subjective Patient seen and examined at bedside. No acute distress, no adverse events overnight He was saturating 95% on 1 L nasal cannula at the time of examination He stated that he did find benefit after taking fluid on the right side. Is doing okay when he is sitting but even on minimal exertion he does complain of shortness of breath Denies any chest pain No nausea or vomiting, fair appetite Patient was seen last by Dr. Horowitz on 06/21/2022. Previous notes discussed Review of Systems Review of Systems: All systems reviewed & are unremarkable except as noted in Subjective Physical Exam Physical Exam: Constitutional: No acute distress HEENT: EOMI, PERRLA Respiratory system: Air entry bilaterally, more decreased on the left side, no wheeze, no rhonchi, positive crackles bilateral lower lobes CVS: S1-S2 positive, no murmurs or gallops Abdomen: Soft, nontender, nondistended, positive bowel sounds x4, obese Extremities: +2 pulses bilaterally radialis/ dorsalis pedis, no cyanosis, no edema Neuro: Awake alert oriented x3 Psych: Normal mood and affect G/U: No Perez Skin: no rashes, warm and dry Lymphatic: no cervical or axillary lymphadenopathy Results & Data Results & Data ([facility]) Vital Signs (Past 12 Hours) Vital Signs Temp Pulse Resp BP Pulse Ox O2 Del Method O2 Flow Rate 06/23/22 07:26 36.7 C 72 16 132/88 97 Nasal Cannula 2 Laboratory Results 06/21/22 07:20 06/23/22 10:27 PG Care Time/CCT Total # of Minutes Spent Total Time Spent with Patient: Total time spent is greater than 50% in coordination of care (as documented) at patient's floor/unit and/or counseling patient: Coding Level of Care Code 53221 Subseq Hosp Care Lvl 3 Diagnoses Acute on chronic heart failure with preserved ejection fraction (HFpEF) I50.33 Respiratory failure with hypoxia and hypercapnia J96.91; J96.92 Pleural effusion J90
[2022-06-23] MEDS: FUROSEMIDE INJ 20 MG/2 ML VIAL IV SCH (10:37)
[2022-06-23 11:15] LABS: BUN Creatinine Ratio 28.6 (10-20); Calcium 9.2 mg/dl (8.5-10.1); Est GFR (African American) 41.7 ml/min; Potassium 3.5 mmol/L (3.5-5.1)
--- NOTE | 2022-06-23 15:29 | Procedure Note ---
Procedure Note Date of Service June 23, 2022 Note Procedure: Diagnostic therapeutic ultrasound-guided catheter thoracentesis Software Support Analyst: Dr. Celestina Ryan Indication: Left pleural effusion Consent: Signed by patient and verified with timeout prior to procedure Anesthesia: 1% lidocaine without epinephrine local. Procedure: Consent was verified and timeout performed. Appropriate imaging studies were reviewed prior to the procedure. Patient was placed in a seated position and limited thoracic ultrasound was performed of the left chest. See separate imaging. Appropriate site above the diaphragm for thoracentesis was selected. The skin was prepped and draped in normal sterile fashion. Lidocaine was used for local analgesia. Fluid was aspirated via the finder needle. A small skin carmen was made with the scalpel and the catheter over the needle apparatus was advanced over the rib into the pleural space. Using the syringe one-way valve system, a total of 950 mL's of serosanguineous fluid was removed. The catheter was removed and observed to be intact. A sterile dressing was applied. Post procedure chest x-ray was ordered. Good lung sliding was appreciated postprocedure on the left Fluid was sent for labs, culture and cytology. On the bedside ultrasound, small right-sided pleural effusion was also appreciated. It seems patient is developing right-sided pleural effusion gradually. Bilateral atelectasis of the lower lobes. B-lines appreciated posteriorly, a lines anteriorly bilaterally Complications: None Blood loss: None Coding CPT Codes Pulmonary/Thoracic - Pulmonary and Thoracic: 16945 Thoracentesis w imaging ([id number]) Pulmonary/Thoracic - Pulmonary and Thoracic: 96586 US, Chest, real time with imaging documentation ([id number]) [facility] Procedure Codes ([place]) Pulmonary/Thoracic Procedure 1: Pulmonary and Thoracic: 92892 Thoracentesis w imaging Procedure 2: Pulmonary and Thoracic: 51548 US, Chest, real time with imaging documentation
--- NOTE | 2022-06-23 15:41 | XRay Report ---
SINGLE VIEW CHEST CLINICAL HISTORY: Status post thoracentesis. FINDINGS: 2 AP, portable, upright chest radiographs are compared to study dated 06/20/2022. The exami nation is degraded by portable technique: Body habitus, and apical lordotic positioning. The heart i s enlarged noting atherosclerotic calcification of the thoracic aorta. There is pulmonary vascular co ngestion. There are layering pleural effusions, right larger than left with dependent consolidation. No pneumothorax is seen. The skeletal structures are osteopenic. The bony thorax is grossly intact. IMPRESSION: 1. Cardiomegaly with pulmonary vascular congestion. 2. Right larger than left pleural effusions with dependent consolidation. The left pleural effusion h as decreased in size from previous, and the right pleural effusion appears modestly increased from pr evious. 3. No pneumothorax is seen post procedure. ACT 112: Negative or not required by law. Electronically signed by: Jonathan Sifuentes M.D. 06/23/2022 3:40 PM
--- NOTE | 2022-06-23 16:05 | Heart Failure Progress Note ---
Date of Service June 23, 2022 Assessment & Plan (1) Acute on chronic heart failure with preserved ejection fraction (HFpEF): (2) Acute and chronic respiratory failure with hypoxia: (3) COPD (chronic obstructive pulmonary disease): (4) Permanent atrial fibrillation: (5) TAMIKA (obstructive sleep apnea): (6) Lower extremity edema: Plan 1. HFpEF: He is hypervolemic on exam today. His symptoms are improved but still not at baseline. His weight is below baseline. Continue standing scale weights during hospitalization. His volume status has been tenuous in recent months. His Metolazone was discontinued due to FRANK. He was prescribed Torsemide 60 mg BID but was likely only taking 20 mg BID after discharge due to a miscommunication. Kidney function and electrolytes stable. Creatinine bumped yesterday but is improved today. He was converted to PO Torsemide 20 mg BID. May need to increase at home once he's back to his usual fluid intake and diet. I&Os poorly documented. Recommend documenting moving forward and patient/nursing staff are aware. Continue daily weights- STANDING weights only. Continue low sodium diet. 2. Idiopathic cardiomyopathy: Normal coronary arteries. Most recent echocardiogram shows normal LV systolic function. He is on an appropriate medical therapy. Continue Metoprolol 150 mg daily- reduced to allow for physiologic response. Lisinopril discontinued in December 2021 hospitalization due to FRANK. He does not currently qualify for an ICD. 3. Hypertension: Currently hypertensive. Continue to optimize volume status. 4. Atrial fibrillation: Heart rate appears adequately controlled and he is asymptomatic. Continue anticoagulation for stroke risk reduction. Eliquis dose increased to 5 mg BID recently. Kidney function improved so at this time dosing is appropriate. 5. TAMIKA: Does not tolerate CPAP at home. He did well on the BiPAP last night. Encourage compliance at home. Consider different masks if not already attempted. 6. Pulmonary hypertension: Moderate on 12/2021 echo. Optimize. Consider repeat echo once stable. Disposition: Will continue to follow during hospitalization. Anticipate close outpatient follow up with the heart failure program. Looking into placement options- possible [facility]. Admission and Anticipated Discharge Date Admission Date: June 10, 2022 Subjective Patient resting comfortably in the bedside chair this am. He was on 2 L at that time but now is on room air. He had second thoracentesis today with Dr. Ryan. His edema is improving. He denies orthopnea or PND. I&Os inaccurate. Weight below baseline at 236 lb. He denies chest pain, palpitations, cough. Physical Exam Physical Exam: Constitutional: Alert, oriented, in no acute distress. O2 2L HEENT: Head is atraumatic and normocephalic. EOMs intact. Sclera anicteric. Face is symmetric. No perioral cyanosis. Mucous membranes moist. Mild periorbital edema noted Neck: Supple, no JVD, no carotid bruits. - HJR Pulmonary: Slightly increased respiratory effort, decreased breath sounds at the bases L>R. Cardiac: Irregularly irregular, normal S1 and S2, no gallops, no rubs, no murmurs Extremities: No clubbing or cyanosis. Pulses intact. 1-2+ edema 1/3 up the tibia. Abdomen: Normal bowel sounds, soft, non-tender, no abdominal mass palpated Skin: Chronic venous stasis skin changes of bilateral lower extremities. No rash Neurological: Oriented to person, place, and time Results & Data ([facility]) Vital Signs (Past 12 Hours) Vital Signs Temp Pulse Resp BP Pulse Ox O2 Del Method O2 Flow Rate 06/23/22 15:12 97.7 F 68 16 160/66 H 95 Room Air 06/23/22 09:45 Nasal Cannula 2 06/23/22 07:26 98.1 F 72 16 132/88 97 Nasal Cannula 2 PG Care Time/CCT Total # of Minutes Spent Total Time Spent with Patient: Total time spent is greater than 50% in coordination of care (as documented) at patient's floor/unit and/or counseling patient: Coding Level of Care Code 72391 Subseq Hosp Care Lvl 3 Diagnoses Acute on chronic heart failure with preserved ejection fraction (HFpEF) I50.33 Acute and chronic respiratory failure with hypoxia J96.21 COPD (chronic obstructive pulmonary disease) J44.9 Permanent atrial fibrillation I48.2 TAMIKA (obstructive sleep apnea) G47.33 Lower extremity edema R60.0
[2022-06-23] MEDS: TORSEMIDE 10 MG TAB PO SCH ×2 (16:07→18:13)
[2022-06-23 16:08] LABS: Albumin Level 3.1 gm/dl (3.4-5.0); Bilirubin,Total 1.1 mg/dl (0.2-1.0); Total Protein 6.1 gm/dl (6.0-8.3)
[2022-06-23] MEDS: CHOLESTYRAMINE LIGHT 4 GM PKT PO SCH ×2 (16:10→21:56)
[2022-06-23 16:11] LABS: Appearance Pleural Fluid Cloudy; Color Pleural Fluid Amber; RBC Pleural Fluid Auto 14000 /uL; Source Pleural Fluid Left Lung; WBC Pleural Fluid Auto 641 /uL
[2022-06-23 16:22] LABS: Amylase Pleural Fluid 19 U/L; Glucose Pleural Fluid 163 mg/dl; LDH Pleural Fluid 53 U/L; Total Protein Pleural Fluid < 3.0 gm/dl
[2022-06-23 16:45] LABS: Eosinophils, Fluid 1 %; Lymphocytes, Fluid 45 %; Mono,Macrophage,Mesothelial 21 %; Neutrophils, Fluid 33 %
--- NOTE | 2022-06-23 18:30 | Hospitalist Progress Note ---
Date of Service June 23, 2022 Assessment & Plan (1) Acute on chronic heart failure with preserved ejection fraction (HFpEF): Plan: Presented to the ER with worsening shortness of breath for several days with oxygen needs as high as 9 L; down to 3 L by nasal cannula currently Due to miscommunication patient was only taking torsemide 20 mg twice daily at home (discharge instructions from recent admission recommend 60 mg twice daily). Does have some mild hypernatremia suggesting mild intravascular depletion but overall remains hypervolemic - suspect initial 80mg IV BID dosing was causing daily intravascular depletion. [06/10] started on Lasix 80mg IV BID [06/15] switched to 40mg IV BID [06/17] switched to 40mg IV daily [06/20] switched to 60mg IV daily [06/23] switched to torsemide 20mg PO BID Usual dose torsemide 60mg PO BID -> equivalent of Lasix 60 -> 120mg IV BID. Therefore around a quarter to half his usual dose. Despite this BNP has improved from 1096 -> 371 even with lower dosing of Lasix as above. Suspect he is improved on low doses of diuretics because of his worsening nutritional status and low-sodium diet in hospital. Strict I&Os Daily standing weights S/p thoracocentesis on the right side June [address] Horowitz - transudative effusion with negative microbiology to date S/p thoracentesis on the left side June [address] Ryan (2) Acute and chronic respiratory failure with hypoxia: Plan: Secondary to heart failure as above Resolved back to baseline. (3) Hypernatremia: Plan: As above, improving with slower rate of diuresis Follow BMP (4) Chronic anemia: Plan: Hemoglobin fairly stable at 12, macrocytic B12 and folate were normal in 12/2021 No iron studies have been checked but seems unlikely given the macrocytosis that he would have iron deficiency TSH normal in 07/2021 Most likely anemia of chronic disease with chronic kidney disease, however also has a known liver mass so may be related to liver disease (5) Anxiety: Plan: -Continue Remeron nightly. -Make lorazepam 0.5 Mg p.o. nightly scheduled dose -Confirmed in PDMP that he does have this prescribed although it does not seem that he picks it up often enough to take it on a scheduled basis (6) CVA (cerebral vascular accident): Plan: -Was hospitalized last month for this. -Previous notes reported he should be on Eliquis 2.5 mg however he had a stroke on this dose therefore he was recently decreased to 5 mg. Given his obesity this appears to be reasonable. Currently on hold for thoracentesis. -Continue atorvastatin. (7) Elevated troponin I level: Plan: Secondary to demand ischemia (8) Chronic kidney disease, stage 4 (severe): Plan: -Baseline CKD stage G4/A2. (9) COPD (chronic obstructive pulmonary disease): Plan: No acute issues -Continue ipratropium-albuterol. -Incentive spirometry, flutter therapy. -Goal SpO2 between 88-92%, is currently at goal supplemental O2 need of 2-3L NC. (10) Hypothyroidism: Plan: -Continue levothyroxine. TSH normal earlier this year (11) Permanent atrial fibrillation: Plan: - metoprolol for rate control, Eliquis to restart post thoracocentesis (12) TAMIKA (obstructive sleep apnea): Plan: - Does not use CPAP as he is claustrophobic, however did tolerate BiPAP on day of admission. Now declining CPAP at night (13) Hypertension: Plan: Continue on metoprolol succinate 150 mg p.o. daily, isosorbide mononitrate 120 mg p.o. daily, torsemide as above (14) Diabetes mellitus type 2, controlled, with complications: Plan: -Normally on 70/30 at home. A1c 6.0% in March of this year. Glucose 96-127 yesterday. Novolog: --Goal BSG Range: Low 120 mg/dL, High 150 mg/dL --Correction Factor: 40 mg/dL/unit -- We will discontinue carbohydrate coverage --BSGs ACHS if eating, q6h if npo No basal dosing appears to be required. (15) Liver mass: Plan: -Previously found on prior admissions. 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 Findings are suspicious for a primary hepatic malignancy such as hepatocellular carcinoma. -Per his latest PCP note his scheduled outpatient liver biopsy with GI was cancelled due to recent stroke. -Is supposed to get outpatient MRI of the liver. -Liver function currently stable. Follow-up after discharge (16) BPH (benign prostatic hyperplasia): Plan: No acute issues, is voiding Not on medications for this Continue to monitor for any lower urinary tract symptoms Plan VTE prophylaxis -Eliquis on hold for thoracocentesis Diet -low-sodium, type 2 diabetes, fluid restrict to 1500 mL Disposition - continued inpatient stay until euvolemic, planning on rehab on discharge Admission and Anticipated Discharge Date Admission Date: June 10, 2022 Subjective Patient seen after thoracentesis and reports big improvement in his breathing. Discussed care with Ashwini Aguirre and we will switch his intravenous Lasix to p.o. torsemide at this time. Unclear reason why he is requiring much less diuresis than his baseline suspect somewhat diet related. Review of Systems Review of Systems: All systems reviewed & are unremarkable except as noted in Subjective Physical Exam Constitutional: WD/WN, vitals as above + obese Respiratory: normal respiratory effort Auscultation: + diminished lung sounds (At the bases bilaterally); no crackles, no rhonchi and no wheezes Cardiovascular: Rate/Rhythm: regular rate and + irregularly irregular Heart Sounds: no murmur Extremities: + edema (1+ pitting edema legs to knees bilat) Chest (Breasts): Chest: normal inspection of chest Gastrointestinal (Abdomen): normal bowel sounds, soft, nontender, no hepatosplenomegaly Skin: no rashes, warm and dry Neurologic: moves all extremities and awake; no focal motor deficits Psychiatric: A+Ox3, euthymic affect Results & Data Results & Data ([facility]) Vital Signs (Past 12 Hours) Vital Signs Temp Pulse Resp BP Pulse Ox O2 Del Method O2 Flow Rate 06/23/22 15:12 36.5 C 68 16 160/66 H 95 Room Air 06/23/22 09:45 Nasal Cannula 2 06/23/22 07:26 36.7 C 72 16 132/88 97 Nasal Cannula 2 PG Care Time/CCT Total # of Minutes Spent Total Time Spent with Patient: Total time spent is greater than 50% in coordination of care (as documented) at patient's floor/unit and/or counseling patient: Coding Level of Care Code 74687 Subseq Hosp Care Lvl 2 Diagnoses Acute on chronic heart failure with preserved ejection fraction (HFpEF) I50.33 Acute and chronic respiratory failure with hypoxia J96.21 Hypernatremia E87.0 Chronic anemia D64.9 Anxiety F41.9 CVA (cerebral vascular accident) I63.9 Elevated troponin I level R77.8 Chronic kidney disease, stage 4 (severe) N18.4 COPD (chronic obstructive pulmonary disease) J44.9 Hypothyroidism E03.9 Hypothyroidism type: acquired Permanent atrial fibrillation I48.2 TAMIKA (obstructive sleep apnea) G47.33 Hypertension I10 Diabetes mellitus type 2, controlled, with complications E11.8 Liver mass R16.0 BPH (benign prostatic hyperplasia) N40.0 Lower urinary tract symptom presence: symptoms absent (1) BPH (benign prostatic hyperplasia) Lower urinary tract symptom presence: symptoms absent Qualified Code(s): N40.0 - Benign prostatic hyperplasia without lower urinary tract symptoms (2) Hypothyroidism Hypothyroidism type: acquired Qualified Code(s): E03.9 - Hypothyroidism, unspecified
[2022-06-23] MEDS: MIRTAZAPINE TAB 15 MG TAB PO SCH (20:43)
[2022-06-23] MEDS: ATORVASTATIN 40 MG TAB PO SCH (20:43)
[2022-06-23] MEDS: LORazepam 0.5 MG TAB PO SCH (20:45)
[2022-06-23] MEDS: MELATONIN 3 MG TAB PO PRN (20:45)
[2022-06-24] MEDS: LEVOTHYROXINE SODIUM 50 MCG TABLET PO SCH (05:36)
[2022-06-24 06:18] LABS: Appearance Urine Clear (Clear); Bacteria Urine Automated Negative (Negative); Bilirubin Urine Negative (Negative); Blood Urine Negative (Negative); Color Urine Yellow; Glucose Urine UA Negative (Negative); Ketones Urine Negative (Negative); Leukocyte Esterase Urine Negative (Negative); Nitrite Urine Negative (Negative); Protein Urine 2+ (Negative); RBC Urine Automated 0-4 /hpf (0-4); Specific Gravity Urine 1.013 (1.000-1.030); Urobilinogen Urine Negative (Negative)
--- NOTE | 2022-06-24 07:29 | Pulmonology Progress Note ---
Date of Service June 24, 2022 Assessment & Plan (1) Acute on chronic heart failure with preserved ejection fraction (HFpEF): (2) Respiratory failure with hypoxia and hypercapnia: (3) Pleural effusion: Plan Impression: 81-year-old male with history of heart failure admitted with same. He has bilateral pleural effusions. He underwent thoracentesis 06/20/2022 on the right. He symptomatically better -- Bilateral pleural effusion Etiology is likely cardiac S/p right-sided thoracentesis 06/20/2022 --> transudative S/p left-sided thoracentesis 06/23/2022 --> transudative Pleural fluid: LDH 53, protein less than 3, pH 7.49 Serum: LDH 175, Protein 6.1 Etiology is likely underlying CHF Continue diuresis, patient will benefit from BiPAP as well -- History of TAMIKA Not able to tolerate CPAP I do think is going to benefit from CPAP/BiPAP -- Pulmonary hypertension Type II Continue with diuresis Plan: Chest x-ray from today shows reaccumulation of bilateral pleural effusion slowl y. Would recommend adequate diuresis and aim for negative at least negative 750- 1000 mL on a daily basis Would recommend BiPAP / to be used nightly and as needed shortness of breath this will help with diuresis as well No further recommendation from pulmonary perspective. Will sign off. Please call directly with any questions Please note the above document was generated using voice recognition software. It may contain grammatical, syntax or spelling errors.Any formal questions or concerns about the content, text or information contained within the body of this dictation should be directly addressed to the provider for clarification. Admission and Anticipated Discharge Date Admission Date: June 10, 2022 Subjective Patient seen and examined at bedside. No acute distress, no adverse events overnight. Denies any headache, no nausea, no vomiting shortness of breath is improved. Denies any chest pain No headache, no blurry vision Review of Systems Review of Systems: All systems reviewed & are unremarkable except as noted in Subjective Physical Exam Physical Exam: Constitutional: No acute distress HEENT: EOMI, PERRLA Respiratory system: Decreased air entry bilaterally, no wheeze, no rhonchi, positive crackles bilateral lower lobes CVS: S1-S2 positive, no murmurs or gallops Abdomen: Soft, nontender, nondistended, positive bowel sounds x4, obese Extremities: +2 pulses bilaterally radialis/ dorsalis pedis, no cyanosis, no edema Neuro: Awake alert oriented x3 Psych: Normal mood and affect G/U: No Perez Skin: no rashes, warm and dry Lymphatic: no cervical or axillary lymphadenopathy Results & Data Results & Data ([facility]) Vital Signs (Past 12 Hours) Vital Signs Temp Pulse Resp BP Pulse Ox O2 Del Method O2 Flow Rate 06/23/22 22:00 36.3 C L 74 16 167/74 H 94 Nasal Cannula 2 06/23/22 19:40 Nasal Cannula 2 Laboratory Results 06/21/22 07:20 06/23/22 10:27 PG Care Time/CCT Total # of Minutes Spent Total Time Spent with Patient: Total time spent is greater than 50% in coordination of care (as documented) at patient's floor/unit and/or counseling patient: Coding Level of Care Code 19262 Subseq Hosp Care Lvl 2 Diagnoses Acute on chronic heart failure with preserved ejection fraction (HFpEF) I50.33 Respiratory failure with hypoxia and hypercapnia J96.91; J96.92 Pleural effusion J90
[2022-06-24] MEDS: METOPROLOL SUCC 50MG EXT REL TAB PO SCH (08:19)
[2022-06-24] MEDS: ISOSORBIDE MONO EXTENDED REL 60 MG TABCR PO SCH (08:20)
[2022-06-24] MEDS: TORSEMIDE 10 MG TAB PO SCH ×2 (08:20→18:19)
--- NOTE | 2022-06-24 08:20 | XRay Report ---
SINGLE VIEW CHEST CLINICAL HISTORY: Pleural effusions. FINDINGS: An AP, portable, upright chest radiograph is compared to study dated 06/23/2022. The heart is enlarged noting atherosclerotic calcification of the thoracic aorta. There is pulmonary vascular c ongestion. There are layering pleural effusions with dependent consolidation. No pneumothorax is seen . The skeletal structures are osteopenic. The bony thorax is grossly intact. IMPRESSION: 1. Cardiomegaly with evidence of congestive failure. 2. Layering pleural effusions with dependent consolidation. The left pleural effusion has modestly in creased in size from yesterday. ACT 112: Negative or not required by law. Electronically signed by: Jonathan Sifuentes M.D. 06/24/2022 8:19 AM
[2022-06-24] MEDS: INSULIN ASPART PER UNIT SC SCH ×4 (08:21→21:04)
[2022-06-24] MEDS: CHOLECALCIFEROL 1,000 UNITS 25 MCG TAB PO SCH (08:21)
[2022-06-24] MEDS: allopurinoL 300 MG TAB PO SCH (08:54)
[2022-06-24] MEDS: GABAPENTIN 100 MG CAP PO SCH ×2 (08:54→20:25)
[2022-06-24] MEDS: CHOLESTYRAMINE LIGHT 4 GM PKT PO SCH ×2 (08:55→23:36)
[2022-06-24] MEDS: MULTIVITAMIN TAB PO SCH (08:55)
[2022-06-24 10:03] LABS: BUN Creatinine Ratio 28.7 (10-20); Calcium 9.2 mg/dl (8.5-10.1); Creatinine Clr Calc Pharmacy 39.6 ml/min; Est GFR (Non-African American) 34.5 ml/min; Potassium 3.7 mmol/L (3.5-5.1)
[2022-06-24] MEDS ORDERED: TORSEMIDE 10 MG TAB PO STA (10:19)
[2022-06-24] MEDS: ARTIFICIAL TEARS OP SCH ×4 (10:59→20:26)
--- NOTE | 2022-06-24 16:50 | Hospitalist Progress Note ---
Date of Service June 24, 2022 Assessment & Plan (1) Acute on chronic heart failure with preserved ejection fraction (HFpEF): Plan: Presented to the ER with worsening shortness of breath for several days with oxygen needs as high as 9 L; down to 3 L by nasal cannula currently Due to miscommunication patient was only taking torsemide 20 mg twice daily at home (discharge instructions from recent admission recommend 60 mg twice daily). Does have some mild hypernatremia suggesting mild intravascular depletion but overall remains hypervolemic - suspect initial 80mg IV BID dosing was causing daily intravascular depletion. [06/10] started on Lasix 80mg IV BID [06/15] switched to 40mg IV BID [06/17] switched to 40mg IV daily [06/20] switched to 60mg IV daily [06/23] switched to torsemide 20mg PO BID - urine output dropped to 375ml on this [06/24] increased to 40mg PO BID given low urine output yesterday although unclear if all voids being collected Usual dose torsemide 60mg PO BID -> equivalent of Lasix 60 -> 120mg IV BID. Therefore around a quarter to half his usual dose. Despite this BNP has improved from 1096 -> 371 even with lower dosing of Lasix as above. Suspect he is improved on low doses of diuretics because of his worsening nutritional status and low-sodium diet in hospital. Strict I&Os - no intake recorded 06/23 Daily standing weights S/p thoracocentesis on the right side June [address] Horowitz - transudative effusion with negative microbiology to date S/p thoracentesis on the left side June [address] Ryan (2) Acute and chronic respiratory failure with hypoxia: Plan: Secondary to heart failure as above Resolved back to baseline. (3) Hypernatremia: Plan: As above, improving with slower rate of diuresis. Mainly occurred on Lasix 80mg IV BID Follow BMP (4) Chronic anemia: Plan: Hemoglobin fairly stable at 12, macrocytic B12 and folate were normal in 12/2021 No iron studies have been checked but seems unlikely given the macrocytosis that he would have iron deficiency TSH normal in 07/2021 Most likely anemia of chronic disease with chronic kidney disease, however also has a known liver mass so may be related to liver disease (5) Anxiety: Plan: -Continue Remeron nightly. -Make lorazepam 0.5 Mg p.o. nightly scheduled dose -Confirmed in PDMP that he does have this prescribed although it does not seem that he picks it up often enough to take it on a scheduled basis (6) CVA (cerebral vascular accident): Plan: -Was hospitalized last month for this. -Previous notes reported he should be on Eliquis 2.5 mg however he had a stroke on this dose therefore he was recently decreased to 5 mg. Given his obesity this appears to be reasonable. Currently on hold for thoracentesis. -Continue atorvastatin. (7) Elevated troponin I level: Plan: Secondary to demand ischemia (8) Chronic kidney disease, stage 4 (severe): Plan: -Baseline CKD stage G4/A2. (9) COPD (chronic obstructive pulmonary disease): Plan: No acute issues -Continue ipratropium-albuterol. -Incentive spirometry, flutter therapy. -Goal SpO2 between 88-92%, is currently at goal supplemental O2 need of 2-3L NC. (10) Hypothyroidism: Plan: -Continue levothyroxine. TSH normal earlier this year (11) Permanent atrial fibrillation: Plan: - metoprolol for rate control, Eliquis for anticoagulation (12) TAMIKA (obstructive sleep apnea): Plan: Does not use CPAP as he is claustrophobic, however did tolerate BiPAP on day of admission. Now declining CPAP at night (13) Hypertension: Plan: Continue on metoprolol succinate 150 mg p.o. daily, isosorbide mononitrate 120 mg p.o. daily, torsemide as above (14) Diabetes mellitus type 2, controlled, with complications: Plan: -Normally on 70/30 at home. A1c 6.0% in March of this year. Glucose 96-127 yesterday. Novolog: --Goal BSG Range: Low 120 mg/dL, High 150 mg/dL --Correction Factor: 40 mg/dL/unit -- We will discontinue carbohydrate coverage --BSGs ACHS if eating, q6h if npo No basal dosing appears to be required. (15) Liver mass: Plan: -Previously found on prior admissions. 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 Findings are suspicious for a primary hepatic malignancy such as hepatocellular carcinoma. -Per his latest PCP note his scheduled outpatient liver biopsy with GI was cancelled due to recent stroke. -Is supposed to get outpatient MRI of the liver. -Liver function currently stable. Follow-up after discharge (16) BPH (benign prostatic hyperplasia): Plan: No acute issues, is voiding Not on medications for this Continue to monitor for any lower urinary tract symptoms Plan VTE prophylaxis - Eliquis on hold for thoracocentesis Diet - low-sodium, type 2 diabetes, fluid restrict to 1500 mL Disposition - continued inpatient stay until euvolemic, planning on rehab on discharge Admission and Anticipated Discharge Date Admission Date: June 10, 2022 Subjective He reports significant improvement after thoracentesis yesterday for shortness of breath. Urine output of 375 mL yesterday. No chest pain. No change in his bilateral leg swelling. Review of Systems Review of Systems: All systems reviewed & are unremarkable except as noted in Subjective Physical Exam Constitutional: WD/WN, vitals as above + obese Respiratory: normal respiratory effort Auscultation: + diminished lung sounds (At the bases bilaterally); no crackles, no rhonchi and no wheezes Cardiovascular: Rate/Rhythm: regular rate and + irregularly irregular Heart Sounds: no murmur Extremities: + edema (1+ pitting edema legs to knees bilat) Gastrointestinal (Abdomen): normal bowel sounds, soft, nontender, no hepatosplenomegaly Skin: no rashes, warm and dry Neurologic: moves all extremities and awake; no focal motor deficits Psychiatric: A+Ox3, euthymic affect Results & Data Results & Data ([facility]) Vital Signs (Past 12 Hours) Vital Signs Temp Pulse Resp BP Pulse Ox O2 Del Method O2 Flow Rate 06/24/22 15:38 36.8 C 67 16 145/83 H 94 Nasal Cannula 06/24/22 09:00 95 Nasal Cannula 2 06/24/22 08:07 36.4 C L 74 18 175/74 H 97 Nasal Cannula 4 PG Care Time/CCT Total # of Minutes Spent Total Time Spent with Patient: Total time spent is greater than 50% in coordination of care (as documented) at patient's floor/unit and/or counseling patient: Coding Level of Care Code 22733 Subseq Hosp Care Lvl 2 Diagnoses Acute on chronic heart failure with preserved ejection fraction (HFpEF) I50.33 Acute and chronic respiratory failure with hypoxia J96.21 Hypernatremia E87.0 Chronic anemia D64.9 Anxiety F41.9 CVA (cerebral vascular accident) I63.9 Elevated troponin I level R77.8 Chronic kidney disease, stage 4 (severe) N18.4 COPD (chronic obstructive pulmonary disease) J44.9 Hypothyroidism E03.9 Hypothyroidism type: acquired Permanent atrial fibrillation I48.2 TAMIKA (obstructive sleep apnea) G47.33 Hypertension I10 Diabetes mellitus type 2, controlled, with complications E11.8 Liver mass R16.0 BPH (benign prostatic hyperplasia) N40.0 Lower urinary tract symptom presence: symptoms absent (1) Hypothyroidism Hypothyroidism type: acquired Qualified Code(s): E03.9 - Hypothyroidism, unspecified (2) BPH (benign prostatic hyperplasia) Lower urinary tract symptom presence: symptoms absent Qualified Code(s): N40.0 - Benign prostatic hyperplasia without lower urinary tract symptoms
[2022-06-24] MEDS: LORazepam 0.5 MG TAB PO SCH (20:25)
[2022-06-24] MEDS: ATORVASTATIN 40 MG TAB PO SCH (20:25)
[2022-06-24] MEDS: MIRTAZAPINE TAB 15 MG TAB PO SCH (20:25)
[2022-06-24] MEDS: MELATONIN 3 MG TAB PO PRN (20:25)
[2022-06-24] MEDS: APIXABAN 5 MG TABLET PO SCH (20:25)
[2022-06-25] MEDS: LEVOTHYROXINE SODIUM 75 MCG TABLET PO SCH (06:09)
[2022-06-25 08:52] LABS: BUN Creatinine Ratio 27.2 (10-20); Calcium 9.1 mg/dl (8.5-10.1); Creatinine Clr Calc Pharmacy 39.8 ml/min; Est GFR (African American) 40.3 ml/min; Est GFR (Non-African American) 34.8 ml/min; Potassium 3.4 mmol/L (3.5-5.1)
[2022-06-25] MEDS: allopurinoL 300 MG TAB PO SCH (10:05)
[2022-06-25] MEDS: GABAPENTIN 100 MG CAP PO SCH ×2 (10:05→21:27)
[2022-06-25] MEDS: ISOSORBIDE MONO EXTENDED REL 60 MG TABCR PO SCH (10:06)
[2022-06-25] MEDS: APIXABAN 5 MG TABLET PO SCH ×2 (10:06→21:27)
[2022-06-25] MEDS: METOPROLOL SUCC 50MG EXT REL TAB PO SCH (10:06)
[2022-06-25] MEDS: MULTIVITAMIN TAB PO SCH (10:06)
[2022-06-25] MEDS: CHOLECALCIFEROL 1,000 UNITS 25 MCG TAB PO SCH (10:06)
[2022-06-25] MEDS: TORSEMIDE 10 MG TAB PO SCH ×2 (10:06→18:09)
[2022-06-25] MEDS: ARTIFICIAL TEARS OP SCH ×4 (10:06→21:26)
[2022-06-25] MEDS: INSULIN ASPART PER UNIT SC SCH ×4 (10:07→21:27)
[2022-06-25] MEDS: CHOLESTYRAMINE LIGHT 4 GM PKT PO SCH ×2 (11:03→21:29)
[2022-06-25] MEDS ORDERED: POTASSIUM CHLORIDE CRTAB 20 MEQ TABCR PO STA (17:24)
--- NOTE | 2022-06-25 19:48 | Hospitalist Progress Note ---
Date of Service June 25, 2022 Assessment & Plan (1) Acute on chronic heart failure with preserved ejection fraction (HFpEF): Plan: Presented to the ER with worsening shortness of breath for several days with oxygen needs as high as 9 L; down to 3 L by nasal cannula currently Due to miscommunication patient was only taking torsemide 20 mg twice daily at home (discharge instructions from recent admission recommend 60 mg twice daily). Does have some mild hypernatremia suggesting mild intravascular depletion but overall remains hypervolemic - suspect initial 80mg IV BID dosing was causing daily intravascular depletion. [06/10] started on Lasix 80mg IV BID [06/15] switched to 40mg IV BID [06/17] switched to 40mg IV daily [06/20] switched to 60mg IV daily [06/23] switched to torsemide 20mg PO BID - urine output dropped to 375ml on this [06/24] increased to 40mg PO BID given low urine output yesterday although unclear if all voids being collected Usual dose torsemide 60mg PO BID -> equivalent of Lasix 60 -> 120mg IV BID. Therefore around a quarter to half his usual dose. Despite this BNP has improved from 1096 -> 371 even with lower dosing of Lasix as above. Suspect he is improved on low doses of diuretics because of his worsening nutritional status and low-sodium diet in hospital. Strict I&Os - no intake recorded 06/23 Daily standing weights S/p thoracocentesis on the right side June [address] Horowitz - transudative effusion with negative microbiology to date S/p thoracentesis on the left side June [address] Ryan Will continue current diuretics on 06/25 will recheck chest x ray in AM. (2) Acute and chronic respiratory failure with hypoxia: Plan: Secondary to heart failure as above Resolved back to baseline. (3) Hypernatremia: Plan: As above, improving with slower rate of diuresis. Mainly occurred on Lasix 80mg IV BID Follow BMP (4) Chronic anemia: Plan: Hemoglobin fairly stable at 12, macrocytic B12 and folate were normal in 12/2021 No iron studies have been checked but seems unlikely given the macrocytosis that he would have iron deficiency TSH normal in 07/2021 Most likely anemia of chronic disease with chronic kidney disease, however also has a known liver mass so may be related to liver disease (5) Anxiety: Plan: -Continue Remeron nightly. -Make lorazepam 0.5 Mg p.o. nightly scheduled dose -Confirmed in PDMP that he does have this prescribed although it does not seem that he picks it up often enough to take it on a scheduled basis (6) CVA (cerebral vascular accident): Plan: -Was hospitalized last month for this. -Previous notes reported he should be on Eliquis 2.5 mg however he had a stroke on this dose therefore he was recently decreased to 5 mg. Given his obesity this appears to be reasonable. Currently on hold for thoracentesis. -Continue atorvastatin. (7) Elevated troponin I level: Plan: Secondary to demand ischemia (8) Chronic kidney disease, stage 4 (severe): Plan: -Baseline CKD stage G4/A2. (9) COPD (chronic obstructive pulmonary disease): Plan: No acute issues -Continue ipratropium-albuterol. -Incentive spirometry, flutter therapy. -Goal SpO2 between 88-92%, is currently at goal supplemental O2 need of 2-3L NC. (10) Hypothyroidism: Plan: -Continue levothyroxine. TSH normal earlier this year (11) Permanent atrial fibrillation: Plan: - metoprolol for rate control, Eliquis for anticoagulation (12) TAMIKA (obstructive sleep apnea): Plan: Does not use CPAP as he is claustrophobic, however did tolerate BiPAP on day of admission. Now declining CPAP at night (13) Hypertension: Plan: Continue on metoprolol succinate 150 mg p.o. daily, isosorbide mononitrate 120 mg p.o. daily, torsemide as above (14) Diabetes mellitus type 2, controlled, with complications: Plan: -Normally on 70/30 at home. A1c 6.0% in March of this year. Glucose 96-127 yesterday. Novolog: --Goal BSG Range: Low 120 mg/dL, High 150 mg/dL --Correction Factor: 40 mg/dL/unit -- We will discontinue carbohydrate coverage --BSGs ACHS if eating, q6h if npo No basal dosing appears to be required. (15) Liver mass: Plan: -Previously found on prior admissions. 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 Findings are suspicious for a primary hepatic malignancy such as hepatocellular carcinoma. -Per his latest PCP note his scheduled outpatient liver biopsy with GI was cancelled due to recent stroke. -Is supposed to get outpatient MRI of the liver. -Liver function currently stable. Follow-up after discharge (16) BPH (benign prostatic hyperplasia): Plan: No acute issues, is voiding Not on medications for this Continue to monitor for any lower urinary tract symptoms Plan VTE prophylaxis - Eliquis on hold for thoracocentesis Diet - low-sodium, type 2 diabetes, fluid restrict to 1500 mL Disposition - continued inpatient stay until euvolemic, planning on rehab on discharge Admission and Anticipated Discharge Date Admission Date: June 10, 2022 Subjective Patient reports no new symtpoms. He did have some discomfort in his testicle. Review of Systems Review of Systems: All systems reviewed & are unremarkable except as noted in HPI & below Physical Exam Constitutional: WD/WN, vitals as above + obese Eyes: + anicteric sclerae Neck: trachea midline, no thyromegaly Respiratory: normal respiratory effort; no cough Auscultation: + diminished lung sounds (At the bases bilaterally); no crackles, no rhonchi and no wheezes Cardiovascular: RRR, no murmur, no edema Rate/Rhythm: regular rate, regular rhythm and + irregularly irregular Heart Sounds: no murmur Extremities: + edema (1+ pitting edema legs to knees bilat) Chest (Breasts): Chest: normal inspection of chest Gastrointestinal (Abdomen): normal bowel sounds, soft, nontender, no hepatosplenomegaly Musculoskeletal: Extremities: extremities normal to inspection; no cyanosis and no clubbing Skin: no rashes, warm and dry + lesion (Unroofed 4 cm blister posterior right calf, minimal surrounding erythema) Neurologic: moves all extremities and awake; no focal motor deficits Psychiatric: A+Ox3, euthymic affect Genitourinary: No erythema in the scrotum and no tenderness to palpation to either testicle. Lymphatic: no lymphedema Results & Data Results & Data ([facility]) Vital Signs (Past 12 Hours) Vital Signs Temp Pulse Resp BP Pulse Ox O2 Del Method O2 Flow Rate 06/25/22 15:30 36.4 C L 68 18 169/85 H 95 Nasal Cannula 2 06/25/22 09:30 Nasal Cannula 2 06/25/22 07:59 36.6 C 70 16 172/75 H 95 Nasal Cannula 2 PG Care Time/CCT Total # of Minutes Spent Total Time Spent with Patient: Total time spent is greater than 50% in coordination of care (as documented) at patient's floor/unit and/or counseling patient: Coding Level of Care Code 83207 Subseq Hosp Care Lvl 2 Diagnoses Acute on chronic heart failure with preserved ejection fraction (HFpEF) I50.33 Acute and chronic respiratory failure with hypoxia J96.21 Hypernatremia E87.0 Chronic anemia D64.9 Anxiety F41.9 CVA (cerebral vascular accident) I63.9 Elevated troponin I level R77.8 Chronic kidney disease, stage 4 (severe) N18.4 COPD (chronic obstructive pulmonary disease) J44.9 Hypothyroidism E03.9 Hypothyroidism type: acquired Permanent atrial fibrillation I48.2 TAMIKA (obstructive sleep apnea) G47.33 Hypertension I10 Diabetes mellitus type 2, controlled, with complications E11.8 Liver mass R16.0 BPH (benign prostatic hyperplasia) N40.0 Lower urinary tract symptom presence: symptoms absent (1) BPH (benign prostatic hyperplasia) Lower urinary tract symptom presence: symptoms absent Qualified Code(s): N40.0 - Benign prostatic hyperplasia without lower urinary tract symptoms (2) Hypothyroidism Hypothyroidism type: acquired Qualified Code(s): E03.9 - Hypothyroidism, unspecified
[2022-06-25] MEDS: ATORVASTATIN 40 MG TAB PO SCH (21:27)
[2022-06-25] MEDS: MIRTAZAPINE TAB 15 MG TAB PO SCH (21:28)
[2022-06-25] MEDS: LORazepam 0.5 MG TAB PO SCH (21:32)
[2022-06-25] MEDS: MELATONIN 3 MG TAB PO PRN (23:04)
[2022-06-25] MEDS: ACETAMINOPHEN 325 MG TAB PO PRN (23:04)
[2022-06-26] MEDS: LEVOTHYROXINE SODIUM 50 MCG TABLET PO SCH (06:26)
[2022-06-26] MEDS: METOPROLOL SUCC 50MG EXT REL TAB PO SCH (08:42)
[2022-06-26] MEDS: APIXABAN 5 MG TABLET PO SCH ×2 (08:43→19:42)
[2022-06-26] MEDS: TORSEMIDE 10 MG TAB PO SCH ×2 (08:43→17:49)
[2022-06-26] MEDS: CHOLECALCIFEROL 1,000 UNITS 25 MCG TAB PO SCH (08:43)
[2022-06-26] MEDS: GABAPENTIN 100 MG CAP PO SCH ×2 (08:43→19:41)
[2022-06-26] MEDS: ISOSORBIDE MONO EXTENDED REL 60 MG TABCR PO SCH (08:43)
[2022-06-26] MEDS: ARTIFICIAL TEARS OP SCH ×4 (08:43→19:43)
[2022-06-26] MEDS: allopurinoL 300 MG TAB PO SCH (08:43)
[2022-06-26] MEDS: MULTIVITAMIN TAB PO SCH (08:43)
[2022-06-26] MEDS: INSULIN ASPART PER UNIT SC SCH ×4 (08:44→19:53)
[2022-06-26 09:03] LABS: Hematocrit (blood only) 41.7 % (40.1-51.0); Hemoglobin 12.6 g/dl (14.0-18.0); Mean Corpuscular Hemoglobin 30.5 pg (25.0-34.0); Mean Corpuscular Hgb Conc 30.2 g/dL (32.0-36.0); Platelet Count 178 K/uL (130-400); RDW Coefficient of Variation 14.9 % (11.5-14.5); RDW Standard Deviation 55.4 fL (36.4-46.3); Red Blood Count 4.13 M/uL (4.63-6.08); White Blood Count 6.95 K/ul (4.8-10.8)
[2022-06-26 09:31] LABS: BUN Creatinine Ratio 25.4 (10-20); Calcium 9.2 mg/dl (8.5-10.1); Creatinine Clr Calc Pharmacy 37.9 ml/min; Est GFR (Non-African American) 32.8 ml/min; Potassium 3.8 mmol/L (3.5-5.1)
[2022-06-26] MEDS: CHOLESTYRAMINE LIGHT 4 GM PKT PO SCH ×2 (10:45→22:06)
[2022-06-26] MEDS: MIRTAZAPINE TAB 15 MG TAB PO SCH (19:41)
[2022-06-26] MEDS: ATORVASTATIN 40 MG TAB PO SCH (19:42)
--- NOTE | 2022-06-26 21:30 | Hospitalist Progress Note ---
Date of Service June 26, 2022 Assessment & Plan (1) Acute on chronic heart failure with preserved ejection fraction (HFpEF): Plan: Presented to the ER with worsening shortness of breath for several days with oxygen needs as high as 9 L; down to 3 L by nasal cannula currently Due to miscommunication patient was only taking torsemide 20 mg twice daily at home (discharge instructions from recent admission recommend 60 mg twice daily). Does have some mild hypernatremia suggesting mild intravascular depletion but overall remains hypervolemic - suspect initial 80mg IV BID dosing was causing daily intravascular depletion. [06/10] started on Lasix 80mg IV BID [06/15] switched to 40mg IV BID [06/17] switched to 40mg IV daily [06/20] switched to 60mg IV daily [06/23] switched to torsemide 20mg PO BID - urine output dropped to 375ml on this [06/24] increased to 40mg PO BID given low urine output yesterday although unclear if all voids being collected Usual dose torsemide 60mg PO BID -> equivalent of Lasix 60 -> 120mg IV BID. Therefore around a quarter to half his usual dose. Despite this BNP has improved from 1096 -> 371 even with lower dosing of Lasix as above. Suspect he is improved on low doses of diuretics because of his worsening nutritional status and low-sodium diet in hospital. Strict I&Os - no intake recorded 06/23 Daily standing weights S/p thoracocentesis on the right side June [address] Horowitz - transudative effusion with negative microbiology to date S/p thoracentesis on the left side June [address] Ryan Will continue current diuretics on 06/26 chest xray shows improvement. will monitor. (2) Acute and chronic respiratory failure with hypoxia: Plan: Secondary to heart failure as above Resolved back to baseline. (3) Hypernatremia: Plan: As above, improving with slower rate of diuresis. Mainly occurred on Lasix 80mg IV BID Follow BMP (4) Chronic anemia: Plan: Hemoglobin fairly stable at 12, macrocytic B12 and folate were normal in 12/2021 No iron studies have been checked but seems unlikely given the macrocytosis that he would have iron deficiency TSH normal in 07/2021 Most likely anemia of chronic disease with chronic kidney disease, however also has a known liver mass so may be related to liver disease (5) Anxiety: Plan: -Continue Remeron nightly. -Make lorazepam 0.5 Mg p.o. nightly scheduled dose -Confirmed in PDMP that he does have this prescribed although it does not seem that he picks it up often enough to take it on a scheduled basis (6) CVA (cerebral vascular accident): Plan: -Was hospitalized last month for this. -Previous notes reported he should be on Eliquis 2.5 mg however he had a stroke on this dose therefore he was recently decreased to 5 mg. Given his obesity this appears to be reasonable. Currently on hold for thoracentesis. -Continue atorvastatin. (7) Elevated troponin I level: Plan: Secondary to demand ischemia (8) Chronic kidney disease, stage 4 (severe): Plan: -Baseline CKD stage G4/A2. (9) COPD (chronic obstructive pulmonary disease): Plan: No acute issues -Continue ipratropium-albuterol. -Incentive spirometry, flutter therapy. -Goal SpO2 between 88-92%, is currently at goal supplemental O2 need of 2-3L NC. (10) Hypothyroidism: Plan: -Continue levothyroxine. TSH normal earlier this year (11) Permanent atrial fibrillation: Plan: - metoprolol for rate control, Eliquis for anticoagulation (12) TAMIKA (obstructive sleep apnea): Plan: Does not use CPAP as he is claustrophobic, however did tolerate BiPAP on day of admission. Now declining CPAP at night (13) Hypertension: Plan: Continue on metoprolol succinate 150 mg p.o. daily, isosorbide mononitrate 120 mg p.o. daily, torsemide as above (14) Diabetes mellitus type 2, controlled, with complications: Plan: -Normally on 70/30 at home. A1c 6.0% in March of this year. Glucose 96-127 yesterday. Novolog: --Goal BSG Range: Low 120 mg/dL, High 150 mg/dL --Correction Factor: 40 mg/dL/unit -- We will discontinue carbohydrate coverage --BSGs ACHS if eating, q6h if npo No basal dosing appears to be required. (15) Liver mass: Plan: -Previously found on prior admissions. 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 Findings are suspicious for a primary hepatic malignancy such as hepatocellular carcinoma. -Per his latest PCP note his scheduled outpatient liver biopsy with GI was cancelled due to recent stroke. -Is supposed to get outpatient MRI of the liver. -Liver function currently stable. Follow-up after discharge (16) BPH (benign prostatic hyperplasia): Plan: No acute issues, is voiding Not on medications for this Continue to monitor for any lower urinary tract symptoms Plan VTE prophylaxis - Eliquis on hold for thoracocentesis Diet - low-sodium, type 2 diabetes, fluid restrict to 1500 mL Disposition - continued inpatient stay until euvolemic, planning on rehab on discharge Admission and Anticipated Discharge Date Admission Date: June 10, 2022 Subjective Patient has no new complaints at this time. Review of Systems Review of Systems: All systems reviewed & are unremarkable except as noted in HPI & below Physical Exam Constitutional: WD/WN, vitals as above + obese Eyes: + anicteric sclerae Neck: trachea midline, no thyromegaly Respiratory: normal respiratory effort; no cough Auscultation: + diminished lung sounds (At the bases bilaterally); no crackles, no rhonchi and no wheezes Cardiovascular: RRR, no murmur, no edema Rate/Rhythm: regular rate, regular rhythm and + irregularly irregular Heart Sounds: no murmur Extremities: + edema (1+ pitting edema legs to knees bilat) Chest (Breasts): Chest: normal inspection of chest Gastrointestinal (Abdomen): normal bowel sounds, soft, nontender, no hepatosplenomegaly Musculoskeletal: Extremities: extremities normal to inspection; no cyanosis and no clubbing Skin: no rashes, warm and dry + lesion (Unroofed 4 cm blister posterior right calf, minimal surrounding erythema) Neurologic: moves all extremities and awake; no focal motor deficits Psychiatric: A+Ox3, euthymic affect Lymphatic: no lymphedema Results & Data Results & Data ([facility]) Vital Signs (Past 12 Hours) Vital Signs Temp Pulse Resp BP Pulse Ox O2 Del Method O2 Flow Rate 06/26/22 16:02 36.4 C L 69 16 134/78 96 Nasal Cannula 2 PG Care Time/CCT Total # of Minutes Spent Total Time Spent with Patient: Total time spent is greater than 50% in coordination of care (as documented) at patient's floor/unit and/or counseling patient: Coding Level of Care Code 39946 Subseq Hosp Care Lvl 2 Diagnoses Acute on chronic heart failure with preserved ejection fraction (HFpEF) I50.33 Acute and chronic respiratory failure with hypoxia J96.21 Hypernatremia E87.0 Chronic anemia D64.9 Anxiety F41.9 CVA (cerebral vascular accident) I63.9 Elevated troponin I level R77.8 Chronic kidney disease, stage 4 (severe) N18.4 COPD (chronic obstructive pulmonary disease) J44.9 Hypothyroidism E03.9 Hypothyroidism type: acquired Permanent atrial fibrillation I48.2 TAMIKA (obstructive sleep apnea) G47.33 Hypertension I10 Diabetes mellitus type 2, controlled, with complications E11.8 Liver mass R16.0 BPH (benign prostatic hyperplasia) N40.0 Lower urinary tract symptom presence: symptoms absent Time Spent (min) 25 (1) BPH (benign prostatic hyperplasia) Lower urinary tract symptom presence: symptoms absent Qualified Code(s): N40.0 - Benign prostatic hyperplasia without lower urinary tract symptoms (2) Hypothyroidism Hypothyroidism type: acquired Qualified Code(s): E03.9 - Hypothyroidism, unspecified
[2022-06-26] MEDS: LORazepam 0.5 MG TAB PO SCH (22:06)
[2022-06-26] MEDS: MELATONIN 3 MG TAB PO PRN (22:06)
[2022-06-27] MEDS: LEVOTHYROXINE SODIUM 75 MCG TABLET PO SCH (05:41)
[2022-06-27] MEDS: TORSEMIDE 10 MG TAB PO SCH ×2 (08:45→16:48)
[2022-06-27] MEDS: MULTIVITAMIN TAB PO SCH (08:45)
[2022-06-27] MEDS: GABAPENTIN 100 MG CAP PO SCH ×2 (08:45→19:54)
[2022-06-27] MEDS: CHOLECALCIFEROL 1,000 UNITS 25 MCG TAB PO SCH (08:45)
[2022-06-27] MEDS: APIXABAN 5 MG TABLET PO SCH ×2 (08:45→19:54)
[2022-06-27] MEDS: ISOSORBIDE MONO EXTENDED REL 60 MG TABCR PO SCH (08:45)
[2022-06-27] MEDS: allopurinoL 300 MG TAB PO SCH (08:45)
[2022-06-27] MEDS: METOPROLOL SUCC 50MG EXT REL TAB PO SCH (08:45)
[2022-06-27] MEDS: ARTIFICIAL TEARS OP SCH ×4 (08:46→19:54)
[2022-06-27] MEDS: INSULIN ASPART PER UNIT SC SCH ×4 (08:52→20:12)
[2022-06-27 09:41] LABS: BUN Creatinine Ratio 27.8 (10-20); Calcium 9.3 mg/dl (8.5-10.1); Creatinine Clr Calc Pharmacy 40.7 ml/min; Est GFR (African American) 41.4 ml/min; Est GFR (Non-African American) 35.7 ml/min; Potassium 3.8 mmol/L (3.5-5.1)
[2022-06-27] MEDS: CHOLESTYRAMINE LIGHT 4 GM PKT PO SCH ×2 (11:22→20:45)
[2022-06-27] MEDS: ATORVASTATIN 40 MG TAB PO SCH (19:54)
[2022-06-27] MEDS: MELATONIN 3 MG TAB PO PRN (19:55)
[2022-06-27] MEDS: MIRTAZAPINE TAB 15 MG TAB PO SCH (19:55)
[2022-06-27] MEDS: LORazepam 0.5 MG TAB PO SCH (19:55)
--- NOTE | 2022-06-27 23:23 | Hospitalist Progress Note ---
Date of Service June 27, 2022 Assessment & Plan (1) Acute on chronic heart failure with preserved ejection fraction (HFpEF): Plan: Presented to the ER with worsening shortness of breath for several days with oxygen needs as high as 9 L; down to 3 L by nasal cannula currently Due to miscommunication patient was only taking torsemide 20 mg twice daily at home (discharge instructions from recent admission recommend 60 mg twice daily). Does have some mild hypernatremia suggesting mild intravascular depletion but overall remains hypervolemic - suspect initial 80mg IV BID dosing was causing daily intravascular depletion. [06/10] started on Lasix 80mg IV BID [06/15] switched to 40mg IV BID [06/17] switched to 40mg IV daily [06/20] switched to 60mg IV daily [06/23] switched to torsemide 20mg PO BID - urine output dropped to 375ml on this [06/24] increased to 40mg PO BID given low urine output yesterday although unclear if all voids being collected Usual dose torsemide 60mg PO BID -> equivalent of Lasix 60 -> 120mg IV BID. Therefore around a quarter to half his usual dose. Despite this BNP has improved from 1096 -> 371 even with lower dosing of Lasix as above. Suspect he is improved on low doses of diuretics because of his worsening nutritional status and low-sodium diet in hospital. Strict I&Os - no intake recorded 06/23 Daily standing weights S/p thoracocentesis on the right side June [address] Horowitz - transudative effusion with negative microbiology to date S/p thoracentesis on the left side June [address] Ryan Will continue current diuretics on 06/27 chest xray shows improvement. will monitor. (2) Acute and chronic respiratory failure with hypoxia: Plan: Secondary to heart failure as above Resolved back to baseline. (3) Hypernatremia: Plan: As above, improving with slower rate of diuresis. Mainly occurred on Lasix 80mg IV BID Follow BMP (4) Chronic anemia: Plan: Hemoglobin fairly stable at 12, macrocytic B12 and folate were normal in 12/2021 No iron studies have been checked but seems unlikely given the macrocytosis that he would have iron deficiency TSH normal in 07/2021 Most likely anemia of chronic disease with chronic kidney disease, however also has a known liver mass so may be related to liver disease (5) Anxiety: Plan: -Continue Remeron nightly. -Make lorazepam 0.5 Mg p.o. nightly scheduled dose -Confirmed in PDMP that he does have this prescribed although it does not seem that he picks it up often enough to take it on a scheduled basis (6) CVA (cerebral vascular accident): Plan: -Was hospitalized last month for this. -Previous notes reported he should be on Eliquis 2.5 mg however he had a stroke on this dose therefore he was recently decreased to 5 mg. Given his obesity this appears to be reasonable. Currently on hold for thoracentesis. -Continue atorvastatin. (7) Elevated troponin I level: Plan: Secondary to demand ischemia (8) Chronic kidney disease, stage 4 (severe): Plan: -Baseline CKD stage G4/A2. (9) COPD (chronic obstructive pulmonary disease): Plan: No acute issues -Continue ipratropium-albuterol. -Incentive spirometry, flutter therapy. -Goal SpO2 between 88-92%, is currently at goal supplemental O2 need of 2-3L NC. (10) Hypothyroidism: Plan: -Continue levothyroxine. TSH normal earlier this year (11) Permanent atrial fibrillation: Plan: - metoprolol for rate control, Eliquis for anticoagulation (12) TAMIKA (obstructive sleep apnea): Plan: Does not use CPAP as he is claustrophobic, however did tolerate BiPAP on day of admission. Now declining CPAP at night (13) Hypertension: Plan: Continue on metoprolol succinate 150 mg p.o. daily, isosorbide mononitrate 120 mg p.o. daily, torsemide as above (14) Diabetes mellitus type 2, controlled, with complications: Plan: -Normally on 70/30 at home. A1c 6.0% in March of this year. Glucose 96-127 yesterday. Novolog: --Goal BSG Range: Low 120 mg/dL, High 150 mg/dL --Correction Factor: 40 mg/dL/unit -- We will discontinue carbohydrate coverage --BSGs ACHS if eating, q6h if npo No basal dosing appears to be required. (15) Liver mass: Plan: -Previously found on prior admissions. 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 Findings are suspicious for a primary hepatic malignancy such as hepatocellular carcinoma. -Per his latest PCP note his scheduled outpatient liver biopsy with GI was cancelled due to recent stroke. -Is supposed to get outpatient MRI of the liver. -Liver function currently stable. Follow-up after discharge (16) BPH (benign prostatic hyperplasia): Plan: No acute issues, is voiding Not on medications for this Continue to monitor for any lower urinary tract symptoms Plan VTE prophylaxis - Eliquis on hold for thoracocentesis Diet - low-sodium, type 2 diabetes, fluid restrict to 1500 mL Disposition - continued inpatient stay until euvolemic, planning on rehab on discharge Admission and Anticipated Discharge Date Admission Date: June 10, 2022 Subjective 81 yo male reports no new symptoms. Review of Systems Review of Systems: All systems reviewed & are unremarkable except as noted in HPI & below Physical Exam Constitutional: WD/WN, vitals as above + obese Eyes: + anicteric sclerae Neck: trachea midline, no thyromegaly Respiratory: normal respiratory effort; no cough Auscultation: + diminished lung sounds (At the bases bilaterally); no crackles, no rhonchi and no wheezes Cardiovascular: RRR, no murmur, no edema Rate/Rhythm: regular rate, regular rhythm and + irregularly irregular Heart Sounds: no murmur Extremities: + edema (1+ pitting edema legs to knees bilat) Chest (Breasts): Chest: normal inspection of chest Gastrointestinal (Abdomen): normal bowel sounds, soft, nontender, no hepatosplenomegaly Musculoskeletal: Extremities: extremities normal to inspection; no cyanosis and no clubbing Skin: no rashes, warm and dry + lesion (Unroofed 4 cm blister posterior right calf, minimal surrounding erythema) Neurologic: moves all extremities and awake; no focal motor deficits Psychiatric: A+Ox3, euthymic affect Lymphatic: no lymphedema Results & Data Results & Data ([facility]) Vital Signs (Past 12 Hours) Vital Signs Temp Pulse Resp BP Pulse Ox O2 Del Method O2 Flow Rate 06/27/22 22:24 36.6 C 75 16 157/68 H 98 Nasal Cannula 2 06/27/22 21:09 Nasal Cannula 2 06/27/22 16:00 36.3 C L 68 20 154/75 H 96 Nasal Cannula 2 PG Care Time/CCT Total # of Minutes Spent Total Time Spent with Patient: Total time spent is greater than 50% in coordination of care (as documented) at patient's floor/unit and/or counseling patient: Coding Level of Care Code 11203 Subseq Hosp Care Lvl 2 Diagnoses Acute on chronic heart failure with preserved ejection fraction (HFpEF) I50.33 Acute and chronic respiratory failure with hypoxia J96.21 Hypernatremia E87.0 Chronic anemia D64.9 Anxiety F41.9 CVA (cerebral vascular accident) I63.9 Elevated troponin I level R77.8 Chronic kidney disease, stage 4 (severe) N18.4 COPD (chronic obstructive pulmonary disease) J44.9 Hypothyroidism E03.9 Hypothyroidism type: acquired Permanent atrial fibrillation I48.2 TAMIKA (obstructive sleep apnea) G47.33 Hypertension I10 Diabetes mellitus type 2, controlled, with complications E11.8 Liver mass R16.0 BPH (benign prostatic hyperplasia) N40.0 Lower urinary tract symptom presence: symptoms absent (1) BPH (benign prostatic hyperplasia) Lower urinary tract symptom presence: symptoms absent Qualified Code(s): N40.0 - Benign prostatic hyperplasia without lower urinary tract symptoms (2) Hypothyroidism Hypothyroidism type: acquired Qualified Code(s): E03.9 - Hypothyroidism, unspecified
[2022-06-28] MEDS: LEVOTHYROXINE SODIUM 50 MCG TABLET PO SCH (04:47)
[2022-06-28] MEDS: INSULIN ASPART PER UNIT SC SCH ×4 (08:36→21:32)
[2022-06-28] MEDS: APIXABAN 5 MG TABLET PO SCH ×2 (08:41→19:49)
[2022-06-28] MEDS: GABAPENTIN 100 MG CAP PO SCH ×2 (08:41→19:51)
[2022-06-28] MEDS: allopurinoL 300 MG TAB PO SCH (08:42)
[2022-06-28] MEDS: METOPROLOL SUCC 50MG EXT REL TAB PO SCH (08:42)
[2022-06-28] MEDS: ISOSORBIDE MONO EXTENDED REL 60 MG TABCR PO SCH (08:43)
[2022-06-28] MEDS: MULTIVITAMIN TAB PO SCH (08:43)
[2022-06-28] MEDS: CHOLECALCIFEROL 1,000 UNITS 25 MCG TAB PO SCH (08:43)
[2022-06-28] MEDS: ARTIFICIAL TEARS OP SCH ×4 (08:43→19:52)
[2022-06-28] MEDS: TORSEMIDE 20 MG TAB PO SCH ×2 (08:44→21:29)
[2022-06-28 08:55] LABS: Hematocrit (blood only) 39.7 % (40.1-51.0); Hemoglobin 12.3 g/dl (14.0-18.0); Mean Corpuscular Hemoglobin 30.9 pg (25.0-34.0); Mean Corpuscular Volume 99.7 fL (80.0-100.0); Mean Platelet Volume 10.9 fL (9.4-12.4); Platelet Count 204 K/uL (130-400); RDW Coefficient of Variation 14.7 % (11.5-14.5); RDW Standard Deviation 54.3 fL (36.4-46.3); Red Blood Count 3.98 M/uL (4.63-6.08); White Blood Count 7.03 K/ul (4.8-10.8)
[2022-06-28] MEDS: CHOLESTYRAMINE LIGHT 4 GM PKT PO SCH ×2 (09:26→22:50)
[2022-06-28 09:30] LABS: BUN Creatinine Ratio 28.1 (10-20); Calcium 9.2 mg/dl (8.5-10.1); Creatinine Clr Calc Pharmacy 40.3 ml/min; Est GFR (African American) 40.8 ml/min; Est GFR (Non-African American) 35.2 ml/min; Potassium 3.6 mmol/L (3.5-5.1)
[2022-06-28] MEDS: MIRTAZAPINE TAB 15 MG TAB PO SCH (19:48)
[2022-06-28] MEDS: ATORVASTATIN 40 MG TAB PO SCH (19:50)
[2022-06-28] MEDS: LORazepam 0.5 MG TAB PO SCH (21:28)
--- NOTE | 2022-06-28 21:32 | Hospitalist Progress Note ---
Date of Service June 28, 2022 Assessment & Plan (1) Acute on chronic heart failure with preserved ejection fraction (HFpEF): Plan: Presented to the ER with worsening shortness of breath for several days with oxygen needs as high as 9 L; down to 3 L by nasal cannula currently Due to miscommunication patient was only taking torsemide 20 mg twice daily at home (discharge instructions from recent admission recommend 60 mg twice daily). Does have some mild hypernatremia suggesting mild intravascular depletion but overall remains hypervolemic - suspect initial 80mg IV BID dosing was causing daily intravascular depletion. [06/10] started on Lasix 80mg IV BID [06/15] switched to 40mg IV BID [06/17] switched to 40mg IV daily [06/20] switched to 60mg IV daily [06/23] switched to torsemide 20mg PO BID - urine output dropped to 375ml on this [06/24] increased to 40mg PO BID given low urine output yesterday although unclear if all voids being collected Usual dose torsemide 60mg PO BID -> equivalent of Lasix 60 -> 120mg IV BID. Therefore around a quarter to half his usual dose. Despite this BNP has improved from 1096 -> 371 even with lower dosing of Lasix as above. Suspect he is improved on low doses of diuretics because of his worsening nutritional status and low-sodium diet in hospital. Strict I&Os - no intake recorded 06/23 Daily standing weights S/p thoracocentesis on the right side June [address] Horowitz - transudative effusion with negative microbiology to date S/p thoracentesis on the left side June [address] Ryan Will continue current diuretics on 06/28 Patient continues to be on 2 liters anticipate discharge on 06/29 (2) Acute and chronic respiratory failure with hypoxia: Plan: Secondary to heart failure as above Resolved back to baseline. (3) Hypernatremia: Plan: As above, improving with slower rate of diuresis. Mainly occurred on Lasix 80mg IV BID Follow BMP (4) Chronic anemia: Plan: Hemoglobin fairly stable at 12, macrocytic B12 and folate were normal in 12/2021 No iron studies have been checked but seems unlikely given the macrocytosis that he would have iron deficiency TSH normal in 07/2021 Most likely anemia of chronic disease with chronic kidney disease, however also has a known liver mass so may be related to liver disease (5) Anxiety: Plan: -Continue Remeron nightly. -Make lorazepam 0.5 Mg p.o. nightly scheduled dose -Confirmed in PDMP that he does have this prescribed although it does not seem that he picks it up often enough to take it on a scheduled basis (6) CVA (cerebral vascular accident): Plan: -Was hospitalized last month for this. -Previous notes reported he should be on Eliquis 2.5 mg however he had a stroke on this dose therefore he was recently decreased to 5 mg. Given his obesity this appears to be reasonable. Currently on hold for thoracentesis. -Continue atorvastatin. (7) Elevated troponin I level: Plan: Secondary to demand ischemia (8) Chronic kidney disease, stage 4 (severe): Plan: -Baseline CKD stage G4/A2. (9) COPD (chronic obstructive pulmonary disease): Plan: No acute issues -Continue ipratropium-albuterol. -Incentive spirometry, flutter therapy. -Goal SpO2 between 88-92%, is currently at goal supplemental O2 need of 2-3L NC. (10) Hypothyroidism: Plan: -Continue levothyroxine. TSH normal earlier this year (11) Permanent atrial fibrillation: Plan: - metoprolol for rate control, Eliquis for anticoagulation (12) TAMIKA (obstructive sleep apnea): Plan: Does not use CPAP as he is claustrophobic, however did tolerate BiPAP on day of admission. Now declining CPAP at night (13) Hypertension: Plan: Continue on metoprolol succinate 150 mg p.o. daily, isosorbide mononitrate 120 mg p.o. daily, torsemide as above (14) Diabetes mellitus type 2, controlled, with complications: Plan: -Normally on 70/30 at home. A1c 6.0% in March of this year. Glucose 96-127 yesterday. Novolog: --Goal BSG Range: Low 120 mg/dL, High 150 mg/dL --Correction Factor: 40 mg/dL/unit -- We will discontinue carbohydrate coverage --BSGs ACHS if eating, q6h if npo No basal dosing appears to be required. (15) Liver mass: Plan: -Previously found on prior admissions. 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 Findings are suspicious for a primary hepatic malignancy such as hepatocellular carcinoma. -Per his latest PCP note his scheduled outpatient liver biopsy with GI was cancelled due to recent stroke. -Is supposed to get outpatient MRI of the liver. -Liver function currently stable. Follow-up after discharge (16) BPH (benign prostatic hyperplasia): Plan: No acute issues, is voiding Not on medications for this Continue to monitor for any lower urinary tract symptoms Plan VTE prophylaxis - Eliquis on hold for thoracocentesis Diet - low-sodium, type 2 diabetes, fluid restrict to 1500 mL Disposition - continued inpatient stay until euvolemic, planning on rehab on discharge Admission and Anticipated Discharge Date Admission Date: June 10, 2022 Subjective 81 yo male reports no new symptoms Review of Systems Review of Systems: All systems reviewed & are unremarkable except as noted in HPI & below Physical Exam Constitutional: WD/WN, vitals as above + obese Eyes: + anicteric sclerae Neck: trachea midline, no thyromegaly Respiratory: normal respiratory effort; no cough Auscultation: + diminished lung sounds (At the bases bilaterally); no crackles, no rhonchi and no wheezes Cardiovascular: RRR, no murmur, no edema Rate/Rhythm: regular rate, regular rhythm and + irregularly irregular Heart Sounds: no murmur Extremities: + edema (1+ pitting edema legs to knees bilat) Chest (Breasts): Chest: normal inspection of chest Gastrointestinal (Abdomen): normal bowel sounds, soft, nontender, no hepatosplenomegaly Musculoskeletal: Extremities: extremities normal to inspection; no cyanosis and no clubbing Skin: no rashes, warm and dry + lesion (Unroofed 4 cm blister posterior right calf, minimal surrounding erythema) Neurologic: moves all extremities and awake; no focal motor deficits Psychiatric: A+Ox3, euthymic affect Lymphatic: no lymphedema Results & Data Results & Data ([facility]) Vital Signs (Past 12 Hours) Vital Signs Temp Pulse Resp BP Pulse Ox O2 Del Method O2 Flow Rate 06/28/22 15:33 36.5 C 60 16 165/82 H 96 Nasal Cannula 2 PG Care Time/CCT Total # of Minutes Spent Total Time Spent with Patient: Total time spent is greater than 50% in coordination of care (as documented) at patient's floor/unit and/or counseling patient: Coding Level of Care Code 12270 Subseq Hosp Care Lvl 2 Diagnoses Acute on chronic heart failure with preserved ejection fraction (HFpEF) I50.33 Acute and chronic respiratory failure with hypoxia J96.21 Hypernatremia E87.0 Chronic anemia D64.9 Anxiety F41.9 CVA (cerebral vascular accident) I63.9 Elevated troponin I level R77.8 Chronic kidney disease, stage 4 (severe) N18.4 COPD (chronic obstructive pulmonary disease) J44.9 Hypothyroidism E03.9 Hypothyroidism type: acquired Permanent atrial fibrillation I48.2 TAMIKA (obstructive sleep apnea) G47.33 Hypertension I10 Diabetes mellitus type 2, controlled, with complications E11.8 Liver mass R16.0 BPH (benign prostatic hyperplasia) N40.0 Lower urinary tract symptom presence: symptoms absent Time Spent (min) 25 (1) BPH (benign prostatic hyperplasia) Lower urinary tract symptom presence: symptoms absent Qualified Code(s): N40.0 - Benign prostatic hyperplasia without lower urinary tract symptoms (2) Hypothyroidism Hypothyroidism type: acquired Qualified Code(s): E03.9 - Hypothyroidism, unspecified
[2022-06-29] MEDS: LEVOTHYROXINE SODIUM 75 MCG TABLET PO SCH (05:47)
[2022-06-29 08:03] LABS: BUN Creatinine Ratio 27.9 (10-20); Creatinine Clr Calc Pharmacy 41.7 ml/min; Est GFR (African American) 42.6 ml/min; Est GFR (Non-African American) 36.7 ml/min; Potassium 3.6 mmol/L (3.5-5.1)
[2022-06-29] MEDS: TORSEMIDE 20 MG TAB PO SCH ×2 (08:37→16:32)
[2022-06-29] MEDS: CHOLESTYRAMINE LIGHT 4 GM PKT PO SCH ×2 (08:37→22:09)
[2022-06-29] MEDS: METOPROLOL SUCC 50MG EXT REL TAB PO SCH (08:37)
[2022-06-29] MEDS: GABAPENTIN 100 MG CAP PO SCH ×2 (08:37→20:24)
[2022-06-29] MEDS: MULTIVITAMIN TAB PO SCH (08:37)
[2022-06-29] MEDS: CHOLECALCIFEROL 1,000 UNITS 25 MCG TAB PO SCH (08:37)
[2022-06-29] MEDS: ISOSORBIDE MONO EXTENDED REL 60 MG TABCR PO SCH (08:37)
[2022-06-29] MEDS: APIXABAN 5 MG TABLET PO SCH ×2 (08:37→20:24)
[2022-06-29] MEDS: allopurinoL 300 MG TAB PO SCH (08:38)
[2022-06-29] MEDS: ARTIFICIAL TEARS OP SCH ×4 (08:38→21:34)
[2022-06-29] MEDS: INSULIN ASPART PER UNIT SC SCH ×4 (08:39→21:35)
[2022-06-29] MEDS: ATORVASTATIN 40 MG TAB PO SCH (20:24)
[2022-06-29] MEDS: MIRTAZAPINE TAB 15 MG TAB PO SCH (20:25)
[2022-06-29] MEDS: LORazepam 0.5 MG TAB PO SCH (20:27)
[2022-06-29] MEDS: MELATONIN 3 MG TAB PO PRN (20:27)
--- NOTE | 2022-06-29 22:08 | Hospitalist Progress Note ---
Date of Service June 29, 2022 Assessment & Plan (1) Acute on chronic heart failure with preserved ejection fraction (HFpEF): Plan: Presented to the ER with worsening shortness of breath for several days with oxygen needs as high as 9 L; down to 3 L by nasal cannula currently Due to miscommunication patient was only taking torsemide 20 mg twice daily at home (discharge instructions from recent admission recommend 60 mg twice daily). Does have some mild hypernatremia suggesting mild intravascular depletion but overall remains hypervolemic - suspect initial 80mg IV BID dosing was causing daily intravascular depletion. [06/10] started on Lasix 80mg IV BID [06/15] switched to 40mg IV BID [06/17] switched to 40mg IV daily [06/20] switched to 60mg IV daily [06/23] switched to torsemide 20mg PO BID - urine output dropped to 375ml on this [06/24] increased to 40mg PO BID given low urine output yesterday although unclear if all voids being collected Usual dose torsemide 60mg PO BID -> equivalent of Lasix 60 -> 120mg IV BID. Therefore around a quarter to half his usual dose. Despite this BNP has improved from 1096 -> 371 even with lower dosing of Lasix as above. Suspect he is improved on low doses of diuretics because of his worsening nutritional status and low-sodium diet in hospital. Strict I&Os - no intake recorded 06/23 Daily standing weights S/p thoracocentesis on the right side June [address] Horowitz - transudative effusion with negative microbiology to date S/p thoracentesis on the left side June [address] Ryan Will continue current diuretics on 06/29 Patient continues to be on 2 liters awaiting placement anticipate discharge on 06/30 (2) Acute and chronic respiratory failure with hypoxia: Plan: Secondary to heart failure as above Resolved back to baseline. (3) Hypernatremia: Plan: As above, improving with slower rate of diuresis. Mainly occurred on Lasix 80mg IV BID Follow BMP (4) Chronic anemia: Plan: Hemoglobin fairly stable at 12, macrocytic B12 and folate were normal in 12/2021 No iron studies have been checked but seems unlikely given the macrocytosis that he would have iron deficiency TSH normal in 07/2021 Most likely anemia of chronic disease with chronic kidney disease, however also has a known liver mass so may be related to liver disease (5) Anxiety: Plan: -Continue Remeron nightly. -Make lorazepam 0.5 Mg p.o. nightly scheduled dose -Confirmed in PDMP that he does have this prescribed although it does not seem that he picks it up often enough to take it on a scheduled basis (6) CVA (cerebral vascular accident): Plan: -Was hospitalized last month for this. -Previous notes reported he should be on Eliquis 2.5 mg however he had a stroke on this dose therefore he was recently decreased to 5 mg. Given his obesity this appears to be reasonable. Currently on hold for thoracentesis. -Continue atorvastatin. (7) Elevated troponin I level: Plan: Secondary to demand ischemia (8) Chronic kidney disease, stage 4 (severe): Plan: -Baseline CKD stage G4/A2. (9) COPD (chronic obstructive pulmonary disease): Plan: No acute issues -Continue ipratropium-albuterol. -Incentive spirometry, flutter therapy. -Goal SpO2 between 88-92%, is currently at goal supplemental O2 need of 2-3L NC. (10) Hypothyroidism: Plan: -Continue levothyroxine. TSH normal earlier this year (11) Permanent atrial fibrillation: Plan: - metoprolol for rate control, Eliquis for anticoagulation (12) TAMIKA (obstructive sleep apnea): Plan: Does not use CPAP as he is claustrophobic, however did tolerate BiPAP on day of admission. Now declining CPAP at night (13) Hypertension: Plan: Continue on metoprolol succinate 150 mg p.o. daily, isosorbide mononitrate 120 mg p.o. daily, torsemide as above (14) Diabetes mellitus type 2, controlled, with complications: Plan: -Normally on 70/30 at home. A1c 6.0% in March of this year. Glucose 96-127 yesterday. Novolog: --Goal BSG Range: Low 120 mg/dL, High 150 mg/dL --Correction Factor: 40 mg/dL/unit -- We will discontinue carbohydrate coverage --BSGs ACHS if eating, q6h if npo No basal dosing appears to be required. (15) Liver mass: Plan: -Previously found on prior admissions. 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 Findings are suspicious for a primary hepatic malignancy such as hepatocellular carcinoma. -Per his latest PCP note his scheduled outpatient liver biopsy with GI was cancelled due to recent stroke. -Is supposed to get outpatient MRI of the liver. -Liver function currently stable. Follow-up after discharge (16) BPH (benign prostatic hyperplasia): Plan: No acute issues, is voiding Not on medications for this Continue to monitor for any lower urinary tract symptoms Plan VTE prophylaxis - Eliquis on hold for thoracocentesis Diet - low-sodium, type 2 diabetes, fluid restrict to 1500 mL Disposition - continued inpatient stay until euvolemic, planning on rehab on discharge Admission and Anticipated Discharge Date Admission Date: June 10, 2022 Subjective 81 yo male reports feeling well. He has no new complaints. Review of Systems Review of Systems: All systems reviewed & are unremarkable except as noted in HPI & below Physical Exam Constitutional: WD/WN, vitals as above + obese Eyes: + anicteric sclerae Neck: trachea midline, no thyromegaly Respiratory: normal respiratory effort; no cough Auscultation: + diminished lung sounds (At the bases bilaterally); no crackles, no rhonchi and no wheezes Cardiovascular: RRR, no murmur, no edema Rate/Rhythm: regular rate, regular rhythm and + irregularly irregular Heart Sounds: no murmur Extremities: + edema (1+ pitting edema legs to knees bilat) Chest (Breasts): Chest: normal inspection of chest Gastrointestinal (Abdomen): normal bowel sounds, soft, nontender, no hepatosplenomegaly Musculoskeletal: Extremities: extremities normal to inspection; no cyanosis and no clubbing Skin: no rashes, warm and dry + lesion (Unroofed 4 cm blister posterior right calf, minimal surrounding erythema) Neurologic: moves all extremities and awake; no focal motor deficits Psychiatric: A+Ox3, euthymic affect Lymphatic: no lymphedema Results & Data Results & Data ([facility]) Vital Signs (Past 12 Hours) Vital Signs Temp Pulse Resp BP BP Pulse Ox O2 Del Method 06/29/22 21:32 36.5 C 88 18 161/75 H 96 Nasal Cannula 06/29/22 14:10 36.5 C 58 L 18 160/84 H 97 Nasal Cannula O2 Flow Rate 06/29/22 21:32 2.0 06/29/22 14:10 2 PG Care Time/CCT Total # of Minutes Spent Total Time Spent with Patient: Total time spent is greater than 50% in coordination of care (as documented) at patient's floor/unit and/or counseling patient: Coding Level of Care Code 91583 Subseq Hosp Care Lvl 2 Diagnoses Acute on chronic heart failure with preserved ejection fraction (HFpEF) I50.33 Acute and chronic respiratory failure with hypoxia J96.21 Hypernatremia E87.0 Chronic anemia D64.9 Anxiety F41.9 CVA (cerebral vascular accident) I63.9 Elevated troponin I level R77.8 Chronic kidney disease, stage 4 (severe) N18.4 COPD (chronic obstructive pulmonary disease) J44.9 Hypothyroidism E03.9 Hypothyroidism type: acquired Permanent atrial fibrillation I48.2 TAMIKA (obstructive sleep apnea) G47.33 Hypertension I10 Diabetes mellitus type 2, controlled, with complications E11.8 Liver mass R16.0 BPH (benign prostatic hyperplasia) N40.0 Lower urinary tract symptom presence: symptoms absent (1) BPH (benign prostatic hyperplasia) Lower urinary tract symptom presence: symptoms absent Qualified Code(s): N40.0 - Benign prostatic hyperplasia without lower urinary tract symptoms (2) Hypothyroidism Hypothyroidism type: acquired Qualified Code(s): E03.9 - Hypothyroidism, unspecified
[2022-06-30] MEDS: LEVOTHYROXINE SODIUM 50 MCG TABLET PO SCH (06:19)
[2022-06-30] MEDS: TORSEMIDE 20 MG TAB PO SCH ×2 (08:45→17:45)
[2022-06-30] MEDS: MULTIVITAMIN TAB PO SCH (08:46)
[2022-06-30] MEDS: ISOSORBIDE MONO EXTENDED REL 60 MG TABCR PO SCH (08:46)
[2022-06-30] MEDS: CHOLECALCIFEROL 1,000 UNITS 25 MCG TAB PO SCH (08:47)
[2022-06-30] MEDS: allopurinoL 300 MG TAB PO SCH (08:48)
[2022-06-30] MEDS: APIXABAN 5 MG TABLET PO SCH ×2 (08:49→20:14)
[2022-06-30] MEDS: ARTIFICIAL TEARS OP SCH ×4 (08:49→21:37)
[2022-06-30] MEDS: GABAPENTIN 100 MG CAP PO SCH ×2 (08:49→20:15)
[2022-06-30] MEDS: METOPROLOL SUCC 50MG EXT REL TAB PO SCH (08:56)
[2022-06-30] MEDS: INSULIN ASPART PER UNIT SC SCH ×4 (08:58→21:37)
[2022-06-30] MEDS: CHOLESTYRAMINE LIGHT 4 GM PKT PO SCH ×2 (10:31→21:37)
[2022-06-30 10:44] LABS: Hematocrit (blood only) 38.8 % (40.1-51.0); Hemoglobin 12.3 g/dl (14.0-18.0); Mean Corpuscular Hemoglobin 31.2 pg (25.0-34.0); Mean Corpuscular Hgb Conc 31.7 g/dL (32.0-36.0); Mean Corpuscular Volume 98.5 fL (80.0-100.0); Mean Platelet Volume 10.8 fL (9.4-12.4); Platelet Count 196 K/uL (130-400); RDW Coefficient of Variation 14.6 % (11.5-14.5); RDW Standard Deviation 53.2 fL (36.4-46.3); Red Blood Count 3.94 M/uL (4.63-6.08); White Blood Count 6.93 K/ul (4.8-10.8)
[2022-06-30 11:38] LABS: BUN Creatinine Ratio 26.7 (10-20); Calcium 8.8 mg/dl (8.5-10.1); Creatinine Clr Calc Pharmacy 38.5 ml/min; Est GFR (African American) 38.5 ml/min; Est GFR (Non-African American) 33.2 ml/min; Potassium 3.5 mmol/L (3.5-5.1)
[2022-06-30] MEDS: ATORVASTATIN 40 MG TAB PO SCH (20:14)
[2022-06-30] MEDS: MIRTAZAPINE TAB 15 MG TAB PO SCH (20:15)
[2022-06-30] MEDS: LORazepam 0.5 MG TAB PO SCH (20:16)
[2022-06-30] MEDS: MELATONIN 3 MG TAB PO PRN (20:16)
--- NOTE | 2022-06-30 21:58 | Hospitalist Progress Note ---
Date of Service June 30, 2022 Assessment & Plan (1) Acute on chronic heart failure with preserved ejection fraction (HFpEF): Plan: Presented to the ER with worsening shortness of breath for several days with oxygen needs as high as 9 L; down to 3 L by nasal cannula currently Due to miscommunication patient was only taking torsemide 20 mg twice daily at home (discharge instructions from recent admission recommend 60 mg twice daily). Does have some mild hypernatremia suggesting mild intravascular depletion but overall remains hypervolemic - suspect initial 80mg IV BID dosing was causing daily intravascular depletion. [06/10] started on Lasix 80mg IV BID [06/15] switched to 40mg IV BID [06/17] switched to 40mg IV daily [06/20] switched to 60mg IV daily [06/23] switched to torsemide 20mg PO BID - urine output dropped to 375ml on this [06/24] increased to 40mg PO BID given low urine output yesterday although unclear if all voids being collected Usual dose torsemide 60mg PO BID -> equivalent of Lasix 60 -> 120mg IV BID. Therefore around a quarter to half his usual dose. Despite this BNP has improved from 1096 -> 371 even with lower dosing of Lasix as above. Suspect he is improved on low doses of diuretics because of his worsening nutritional status and low-sodium diet in hospital. Strict I&Os - no intake recorded 06/23 Daily standing weights S/p thoracocentesis on the right side June [address] Horowitz - transudative effusion with negative microbiology to date S/p thoracentesis on the left side June [address] Ryan Will continue current diuretics on 06/29 Patient continues to be on 2 liters awaiting placement anticipate discharge once SNF placement (2) Acute and chronic respiratory failure with hypoxia: Plan: Secondary to heart failure as above Resolved back to baseline. (3) Hypernatremia: Plan: As above, improving with slower rate of diuresis. Mainly occurred on Lasix 80mg IV BID Follow BMP (4) Chronic anemia: Plan: Hemoglobin fairly stable at 12, macrocytic B12 and folate were normal in 12/2021 No iron studies have been checked but seems unlikely given the macrocytosis that he would have iron deficiency TSH normal in 07/2021 Most likely anemia of chronic disease with chronic kidney disease, however also has a known liver mass so may be related to liver disease (5) Anxiety: Plan: -Continue Remeron nightly. -Make lorazepam 0.5 Mg p.o. nightly scheduled dose -Confirmed in PDMP that he does have this prescribed although it does not seem that he picks it up often enough to take it on a scheduled basis (6) CVA (cerebral vascular accident): Plan: -Was hospitalized last month for this. -Previous notes reported he should be on Eliquis 2.5 mg however he had a stroke on this dose therefore he was recently decreased to 5 mg. Given his obesity this appears to be reasonable. Currently on hold for thoracentesis. -Continue atorvastatin. (7) Elevated troponin I level: Plan: Secondary to demand ischemia (8) Chronic kidney disease, stage 4 (severe): Plan: -Baseline CKD stage G4/A2. (9) COPD (chronic obstructive pulmonary disease): Plan: No acute issues -Continue ipratropium-albuterol. -Incentive spirometry, flutter therapy. -Goal SpO2 between 88-92%, is currently at goal supplemental O2 need of 2-3L NC. (10) Hypothyroidism: Plan: -Continue levothyroxine. TSH normal earlier this year (11) Permanent atrial fibrillation: Plan: - metoprolol for rate control, Eliquis for anticoagulation (12) TAMIKA (obstructive sleep apnea): Plan: Does not use CPAP as he is claustrophobic, however did tolerate BiPAP on day of admission. Now declining CPAP at night (13) Hypertension: Plan: Continue on metoprolol succinate 150 mg p.o. daily, isosorbide mononitrate 120 mg p.o. daily, torsemide as above (14) Diabetes mellitus type 2, controlled, with complications: Plan: -Normally on 70/30 at home. A1c 6.0% in March of this year. Glucose 96-127 yesterday. Novolog: --Goal BSG Range: Low 120 mg/dL, High 150 mg/dL --Correction Factor: 40 mg/dL/unit -- We will discontinue carbohydrate coverage --BSGs ACHS if eating, q6h if npo No basal dosing appears to be required. (15) Liver mass: Plan: -Previously found on prior admissions. 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 Findings are suspicious for a primary hepatic malignancy such as hepatocellular carcinoma. -Per his latest PCP note his scheduled outpatient liver biopsy with GI was cancelled due to recent stroke. -Is supposed to get outpatient MRI of the liver. -Liver function currently stable. Follow-up after discharge (16) BPH (benign prostatic hyperplasia): Plan: No acute issues, is voiding Not on medications for this Continue to monitor for any lower urinary tract symptoms Plan VTE prophylaxis - Eliquis on hold for thoracocentesis Diet - low-sodium, type 2 diabetes, fluid restrict to 1500 mL Disposition - continued inpatient stay until euvolemic, planning on rehab on discharge Admission and Anticipated Discharge Date Admission Date: June 10, 2022 Subjective Patient has no new complaints. Review of Systems Review of Systems: All systems reviewed & are unremarkable except as noted in HPI & below Physical Exam Constitutional: WD/WN, vitals as above + obese Eyes: + anicteric sclerae Neck: trachea midline, no thyromegaly Respiratory: normal respiratory effort; no cough Auscultation: + diminished lung sounds (At the bases bilaterally); no crackles, no rhonchi and no wheezes Cardiovascular: RRR, no murmur, no edema Rate/Rhythm: regular rate, regular rhythm and + irregularly irregular Heart Sounds: no murmur Extremities: + edema (1+ pitting edema legs to knees bilat) Chest (Breasts): Chest: normal inspection of chest Gastrointestinal (Abdomen): normal bowel sounds, soft, nontender, no hepatosplenomegaly Musculoskeletal: Extremities: extremities normal to inspection; no cyanosis and no clubbing Skin: no rashes, warm and dry + lesion (Unroofed 4 cm blister posterior right calf, minimal surrounding erythema) Neurologic: moves all extremities and awake; no focal motor deficits Psychiatric: A+Ox3, euthymic affect Lymphatic: no lymphedema Results & Data Results & Data ([facility]) Vital Signs (Past 12 Hours) Vital Signs Temp Pulse Resp BP BP Pulse Ox O2 Del Method 06/30/22 14:39 36.6 C 66 16 145/80 H 95 Nasal Cannula 06/30/22 10:23 73 158/84 H O2 Flow Rate 06/30/22 14:39 2 06/30/22 10:23 PG Care Time/CCT Total # of Minutes Spent Total Time Spent with Patient: Total time spent is greater than 50% in coordination of care (as documented) at patient's floor/unit and/or counseling patient: Coding Level of Care Code 59816 Subseq Hosp Care Lvl 2 Diagnoses Acute on chronic heart failure with preserved ejection fraction (HFpEF) I50.33 Acute and chronic respiratory failure with hypoxia J96.21 Hypernatremia E87.0 Chronic anemia D64.9 Anxiety F41.9 CVA (cerebral vascular accident) I63.9 Elevated troponin I level R77.8 Chronic kidney disease, stage 4 (severe) N18.4 COPD (chronic obstructive pulmonary disease) J44.9 Hypothyroidism E03.9 Hypothyroidism type: acquired Permanent atrial fibrillation I48.2 TAMIKA (obstructive sleep apnea) G47.33 Hypertension I10 Diabetes mellitus type 2, controlled, with complications E11.8 Liver mass R16.0 BPH (benign prostatic hyperplasia) N40.0 Lower urinary tract symptom presence: symptoms absent (1) BPH (benign prostatic hyperplasia) Lower urinary tract symptom presence: symptoms absent Qualified Code(s): N40.0 - Benign prostatic hyperplasia without lower urinary tract symptoms (2) Hypothyroidism Hypothyroidism type: acquired Qualified Code(s): E03.9 - Hypothyroidism, unspecified
[2022-07-01] MEDS: LEVOTHYROXINE SODIUM 75 MCG TABLET PO SCH (05:13)
[2022-07-01] MEDS: INSULIN ASPART PER UNIT SC SCH ×4 (08:29→21:09)
[2022-07-01] MEDS: APIXABAN 5 MG TABLET PO SCH ×2 (08:36→20:38)
[2022-07-01] MEDS: ISOSORBIDE MONO EXTENDED REL 60 MG TABCR PO SCH (08:36)
[2022-07-01] MEDS: CHOLESTYRAMINE LIGHT 4 GM PKT PO SCH ×2 (08:37→20:39)
[2022-07-01] MEDS: allopurinoL 300 MG TAB PO SCH (08:37)
[2022-07-01] MEDS: TORSEMIDE 20 MG TAB PO SCH ×2 (08:37→17:07)
[2022-07-01] MEDS: METOPROLOL SUCC 50MG EXT REL TAB PO SCH (08:37)
[2022-07-01] MEDS: CHOLECALCIFEROL 1,000 UNITS 25 MCG TAB PO SCH (08:37)
[2022-07-01] MEDS: GABAPENTIN 100 MG CAP PO SCH ×2 (08:37→20:38)
[2022-07-01] MEDS: MULTIVITAMIN TAB PO SCH (08:37)
[2022-07-01] MEDS: ARTIFICIAL TEARS OP SCH ×4 (08:38→20:37)
[2022-07-01] MEDS: MIRTAZAPINE TAB 15 MG TAB PO SCH (20:38)
[2022-07-01] MEDS: ATORVASTATIN 40 MG TAB PO SCH (20:38)
[2022-07-01] MEDS: LORazepam 0.5 MG TAB PO SCH (20:40)
--- NOTE | 2022-07-01 21:22 | Hospitalist Progress Note ---
Date of Service July 01, 2022 Assessment & Plan (1) Acute on chronic heart failure with preserved ejection fraction (HFpEF): Plan: Presented to the ER with worsening shortness of breath for several days with oxygen needs as high as 9 L; down to 3 L by nasal cannula currently Due to miscommunication patient was only taking torsemide 20 mg twice daily at home (discharge instructions from recent admission recommend 60 mg twice daily). Does have some mild hypernatremia suggesting mild intravascular depletion but overall remains hypervolemic - suspect initial 80mg IV BID dosing was causing daily intravascular depletion. [06/10] started on Lasix 80mg IV BID [06/15] switched to 40mg IV BID [06/17] switched to 40mg IV daily [06/20] switched to 60mg IV daily [06/23] switched to torsemide 20mg PO BID - urine output dropped to 375ml on this [06/24] increased to 40mg PO BID given low urine output yesterday although unclear if all voids being collected Usual dose torsemide 60mg PO BID -> equivalent of Lasix 60 -> 120mg IV BID. Therefore around a quarter to half his usual dose. Despite this BNP has improved from 1096 -> 371 even with lower dosing of Lasix as above. Suspect he is improved on low doses of diuretics because of his worsening nutritional status and low-sodium diet in hospital. Strict I&Os - no intake recorded 06/23 Daily standing weights S/p thoracocentesis on the right side June [address] Horowitz - transudative effusion with negative microbiology to date S/p thoracentesis on the left side June [address] Ryan Will continue current diuretics on 06/29 Patient continues to be on 2 liters awaiting placement anticipate discharge once SNF placement had peer to peer for SNF placement on 07/01 and this was approved (2) Acute and chronic respiratory failure with hypoxia: Plan: Secondary to heart failure as above Resolved back to baseline. (3) Hypernatremia: Plan: As above, improving with slower rate of diuresis. Mainly occurred on Lasix 80mg IV BID Follow BMP (4) Chronic anemia: Plan: Hemoglobin fairly stable at 12, macrocytic B12 and folate were normal in 12/2021 No iron studies have been checked but seems unlikely given the macrocytosis that he would have iron deficiency TSH normal in 07/2021 Most likely anemia of chronic disease with chronic kidney disease, however also has a known liver mass so may be related to liver disease (5) Anxiety: Plan: -Continue Remeron nightly. -Make lorazepam 0.5 Mg p.o. nightly scheduled dose -Confirmed in PDMP that he does have this prescribed although it does not seem that he picks it up often enough to take it on a scheduled basis (6) CVA (cerebral vascular accident): Plan: -Was hospitalized last month for this. -Previous notes reported he should be on Eliquis 2.5 mg however he had a stroke on this dose therefore he was recently decreased to 5 mg. Given his obesity this appears to be reasonable. Currently on hold for thoracentesis. -Continue atorvastatin. (7) Elevated troponin I level: Plan: Secondary to demand ischemia (8) Chronic kidney disease, stage 4 (severe): Plan: -Baseline CKD stage G4/A2. (9) COPD (chronic obstructive pulmonary disease): Plan: No acute issues -Continue ipratropium-albuterol. -Incentive spirometry, flutter therapy. -Goal SpO2 between 88-92%, is currently at goal supplemental O2 need of 2-3L NC. (10) Hypothyroidism: Plan: -Continue levothyroxine. TSH normal earlier this year (11) Permanent atrial fibrillation: Plan: - metoprolol for rate control, Eliquis for anticoagulation (12) TAMIKA (obstructive sleep apnea): Plan: Does not use CPAP as he is claustrophobic, however did tolerate BiPAP on day of admission. Now declining CPAP at night (13) Hypertension: Plan: Continue on metoprolol succinate 150 mg p.o. daily, isosorbide mononitrate 120 mg p.o. daily, torsemide as above (14) Diabetes mellitus type 2, controlled, with complications: Plan: -Normally on 70/30 at home. A1c 6.0% in March of this year. Glucose 96-127 yesterday. Novolog: --Goal BSG Range: Low 120 mg/dL, High 150 mg/dL --Correction Factor: 40 mg/dL/unit -- We will discontinue carbohydrate coverage --BSGs ACHS if eating, q6h if npo No basal dosing appears to be required. (15) Liver mass: Plan: -Previously found on prior admissions. 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 Findings are suspicious for a primary hepatic malignancy such as hepatocellular carcinoma. -Per his latest PCP note his scheduled outpatient liver biopsy with GI was cancelled due to recent stroke. -Is supposed to get outpatient MRI of the liver. -Liver function currently stable. Follow-up after discharge (16) BPH (benign prostatic hyperplasia): Plan: No acute issues, is voiding Not on medications for this Continue to monitor for any lower urinary tract symptoms Plan VTE prophylaxis - Eliquis on hold for thoracocentesis Diet - low-sodium, type 2 diabetes, fluid restrict to 1500 mL Disposition - continued inpatient stay until euvolemic, planning on rehab on discharge Admission and Anticipated Discharge Date Admission Date: June 10, 2022 Subjective 81 yo male reports non new symptoms. Review of Systems Review of Systems: All systems reviewed & are unremarkable except as noted in HPI & below Physical Exam Constitutional: WD/WN, vitals as above + obese Eyes: + anicteric sclerae Neck: trachea midline, no thyromegaly Respiratory: normal respiratory effort; no cough Auscultation: + diminished lung sounds (At the bases bilaterally); no crackles, no rhonchi and no wheezes Cardiovascular: RRR, no murmur, no edema Rate/Rhythm: regular rate, regular rhythm and + irregularly irregular Heart Sounds: no murmur Extremities: + edema (1+ pitting edema legs to knees bilat) Chest (Breasts): Chest: normal inspection of chest Gastrointestinal (Abdomen): normal bowel sounds, soft, nontender, no hepatosplenomegaly Musculoskeletal: Extremities: extremities normal to inspection; no cyanosis and no clubbing Skin: no rashes, warm and dry + lesion (Unroofed 4 cm blister posterior right calf, minimal surrounding erythema) Neurologic: moves all extremities and awake; no focal motor deficits Psychiatric: A+Ox3, euthymic affect Lymphatic: no lymphedema Results & Data Results & Data ([facility]) Vital Signs (Past 12 Hours) Vital Signs Temp Pulse Resp BP Pulse Ox O2 Del Method O2 Flow Rate 07/01/22 16:00 36.3 C L 72 18 149/66 H 99 Nasal Cannula 2 PG Care Time/CCT Total # of Minutes Spent Total Time Spent with Patient: Total time spent is greater than 50% in coordination of care (as documented) at patient's floor/unit and/or counseling patient: Coding Level of Care Code 80059 Subseq Hosp Care Lvl 2 Diagnoses Acute on chronic heart failure with preserved ejection fraction (HFpEF) I50.33 Acute and chronic respiratory failure with hypoxia J96.21 Hypernatremia E87.0 Chronic anemia D64.9 Anxiety F41.9 CVA (cerebral vascular accident) I63.9 Elevated troponin I level R77.8 Chronic kidney disease, stage 4 (severe) N18.4 COPD (chronic obstructive pulmonary disease) J44.9 Hypothyroidism E03.9 Hypothyroidism type: acquired Permanent atrial fibrillation I48.2 TAMIKA (obstructive sleep apnea) G47.33 Hypertension I10 Diabetes mellitus type 2, controlled, with complications E11.8 Liver mass R16.0 BPH (benign prostatic hyperplasia) N40.0 Lower urinary tract symptom presence: symptoms absent Time Spent (min) 25 (1) BPH (benign prostatic hyperplasia) Lower urinary tract symptom presence: symptoms absent Qualified Code(s): N40.0 - Benign prostatic hyperplasia without lower urinary tract symptoms (2) Hypothyroidism Hypothyroidism type: acquired Qualified Code(s): E03.9 - Hypothyroidism, unspecified
[2022-07-02] MEDS: LEVOTHYROXINE SODIUM 50 MCG TABLET PO SCH (06:06)
[2022-07-02] MEDS: TORSEMIDE 20 MG TAB PO SCH (08:32)
[2022-07-02] MEDS: INSULIN ASPART PER UNIT SC SCH ×2 (08:32→12:30)
[2022-07-02] MEDS: APIXABAN 5 MG TABLET PO SCH (08:33)
[2022-07-02] MEDS: GABAPENTIN 100 MG CAP PO SCH (08:33)
[2022-07-02] MEDS: METOPROLOL SUCC 50MG EXT REL TAB PO SCH (08:33)
[2022-07-02] MEDS: ISOSORBIDE MONO EXTENDED REL 60 MG TABCR PO SCH (08:33)
[2022-07-02] MEDS: CHOLECALCIFEROL 1,000 UNITS 25 MCG TAB PO SCH (08:33)
[2022-07-02] MEDS: MULTIVITAMIN TAB PO SCH (08:33)
[2022-07-02] MEDS: allopurinoL 300 MG TAB PO SCH (08:33)
[2022-07-02] MEDS: ARTIFICIAL TEARS OP SCH ×2 (08:34→13:37)
[2022-07-02] MEDS: CHOLESTYRAMINE LIGHT 4 GM PKT PO SCH (09:32)
[2022-07-02 14:38] VITALS: BP 141/74; PULSE 57; TEMP 98.4; O2SAT 96
--- NOTE | 2022-07-02 15:32 | Discharge Summary ---
Date of Service July 02, 2022 Admission HPI Per Admitting Provider Bryn is an 81-year-old male with a past medical history of combined systolic and diastolic CHF, cardiomyopathy, type 2 diabetes with neuropathy, hypothyroidism, distal aortic dissection, TAMIKA, permanent A. fib on Eliquis, CKD 4, Hx of liver mass, COPD, chronic hypoxic respiratory failure on 2-3L NC at baseline and recent embolic stroke who presented to the [facility] ED on 06/10/22 with SOB. In the ED the patient was noted to be afebrile, hypertensive at 191/104, and hypoxic in the 80's on his 3L NC. Per the ED staff the patient was very dyspneic and was unable to speak in complete sentences. Chest xray obtained showed "Cardiomegaly is noted. There is mild pulmonary congestion but no teresita edema. Small bilateral pleural effusions are seen with bibasilar airspace opacities, similar to prior exam". The patient was placed on Bipap due to his respiratory failure. Labs were remarkable for WBC WNL, stable Hgb at 15.2, stable renal function and electrolytes, glucose of 113, total bili of 1.1, alk phos of 180, f irst high sensitivity troponin of 42.6, BNP of 1096. ABG obtained after the patient was placed on Bipap showed a pH of 7.28, pCO2 of 75.2, pO2 of 22, and bicarb of 35.7. After the abg the patinet's Bipap settings were increased from 12/5 to 16/5. Per chart review, the patient was recently admitted to [facility] from 04/08/22- 04/14/22 for acute hypoxic respiratory failure due to CHF exacerbation. His CHF exacerbation was though to be caused by increased sodium intake from eating out more often due to his being ill and having his does of torsemide decreased around that time. He was treated with IV lasix while admitted, on discharge his dose of Torsemide was increased back to 60 mg PO BID. He was also recently hospitalized at [facility] from 05/04/22-05/12/22 for acute ischemic stroke vs TIA. The patient was evaluated by Neurology who recommended increasing the dose of his Eliquis from 2.5 mg BID to 5 mg BID. The patient participated in PT/OT while admitted and his function continued to improve. There were initial plans for him to be discharged to [facility] but he was denied. On the day of discharge he was able to walk 100 feet with a rolling walker independently and was discharged home. At the time of the exam the patient was sitting in bed with his Bipap mask in place in no acute distress with his sitting bedside. History was mainly obtained from the patient's due to the patient still being on Bipap. She states that the patient had been doing fairly well since discharge home after his admission at [facility]. However, she states that he fluctuates between good and bad days both with his breathing and his mentation. At rest he is normally using 2L NC, she states that he is often needed to increase his oxygen to 3-4L with exertion or when home PT works with him. She states that they have been trying hard to reduce his sodium intake, he has still been taking his Torsemide 60 mg PO BID. However, the patient verbalized that he thought he was only supposed to take 20 mg PO BID. After review of the discharge summary from [facility] it instructed him to continue the 20 mg tabs at 3 tabs BID, but it appears that the patient may have misunderstood the dosing. Over the past 48 hours his states that he has experienced increased SOB and lower extremity edema. They had 2 doctors appointments today. She confirms that he took all of his AM medications prior to his first appt this morning. She states that they obtained a chest xray at the [facility]. While they were on their way home [facility] should go to [facility] ED because he had fluid in his lungs. They were on their way to his follow-up PCP appt so they went there instead. His spoke to the patient's PCP who instructed them to come to the ED. The patient's states that they wish the patient would have been accepted to [facility] after his discharge from [facility] as she thinks this could have been prevented. I spoke to them regarding code status; the patient is a Full Code and his would make decisions for him if he could not make them herself. When asked, the patient denies recent or current fevers, chills, chest pain, abdominal pain, nausea, vomiting Please refer to Dr. Andrade's attestation for any changes to the treatment plan Principal Diagnosis Acute on chronic heart failure preserved ejection fraction Discharge Exam patient seen at 1140 h. No complaints. Was sitting in bed Morbidly obese, oriented to place, month and could name president, good judgment and insight, was on oxygen when I examined him but 2 hours later was 96% on room air. Oral mucosa moist Chest left posterior base rales, CVS is S1-S2, RRR Extremities trace edema Gait not tested, Discharge Data Allergies Allergy/AdvReac Type Severity Reaction Status Date / Time morphine Allergy Intermediate DELUSIONS, Verified 06/10/22 16:43 "LOSES TIME" adhesive Allergy Mild RASH Verified 06/10/22 16:43 latex AdvReac Intermediate BLISTERS Verified 06/10/22 16:43 SKIN Consultations 06/10/22 16:21 ED Decision to Admit Stat 06/10/22 18:40 [facility] CHF Program Referral Routine 06/20/22 11:14 Consult Pulmonology Routine Ordered Studies 06/23/22 10:34 US point of care ultrasound Urgent Hospital Course (1) Acute on chronic heart failure with preserved ejection fraction (HFpEF): Presented to the ER with worsening shortness of breath for several days with oxygen needs as high as 9 L; down to 3 L by nasal cannula currently Due to miscommunication patient was only taking torsemide 20 mg twice daily at home (discharge instructions from recent admission recommend 60 mg twice daily). Does have some mild hypernatremia suggesting mild intravascular depletion but overall remains hypervolemic - suspect initial 80mg IV BID dosing was causing daily intravascular depletion. [06/10] started on Lasix 80mg IV BID [06/15] switched to 40mg IV BID [06/17] switched to 40mg IV daily [06/20] switched to 60mg IV daily [06/23] switched to torsemide 20mg PO BID - urine output dropped to 375ml on this [06/24] increased to 40mg PO bid 07/02 day of discharge increased to 60 twice dailysodium was 144 today. A BMP had not been checked since 1115. The rest of the BMP is pending S/p thoracocentesis on the right side June [address] Horowitz - transudative effusion with negative microbiology to date S/p thoracentesis on the left side June [address] Ryan Will continue current diuretics on 06/29 Patient continues to be on 2 liters, which she has been on at home for some time. Being discharged to [facility] today. had peer to peer for SNF placement on 07/01 and this was approved (2) Acute and chronic respiratory failure with hypoxia: Secondary to heart failure as above Resolved back to baseline. (3) Hypernatremia: 144. Given written instructions to drink adequate IV fluids in the SNF. PCP to see him within 3 to 4 days and a BMP to be checked (4) Chronic anemia: Hemoglobin fairly stable at 12, macrocytic B12 and folate were normal in 12/2021 No iron studies have been checked but seems unlikely given the macrocytosis that he would have iron deficiency TSH normal in 07/2021 Most likely anemia of chronic disease with chronic kidney disease, however also has a known liver mass so may be related to liver disease (5) Anxiety: -Continue Remeron nightly. -Make lorazepam 0.5 Mg p.o. nightly scheduled dose -Confirmed in PDMP that he does have this prescribed although it does not seem that he picks it up often enough to take it on a scheduled basis (6) CVA (cerebral vascular accident): -Was hospitalized last month for this. -Previous notes reported he should be on Eliquis 2.5 mg however he had a stroke on this dose therefore he was recently decreased to 5 mg. Given his obesity this appears to be reasonable. Currently on hold for thoracentesis. -Continue atorvastatin. (7) Elevated troponin I level: Secondary to demand ischemia (8) Chronic kidney disease, stage 4 (severe): -Baseline CKD stage G4/A2. (9) COPD (chronic obstructive pulmonary disease): No acute issues -Continue ipratropium-albuterol. -Incentive spirometry, flutter therapy. -Goal SpO2 between 88-92%, is currently at goal supplemental O2 need of 2-3L NC. (10) Hypothyroidism: -Continue levothyroxine. TSH normal earlier this year (11) Permanent atrial fibrillation: - metoprolol for rate control, Eliquis for anticoagulation (12) TAMIKA (obstructive sleep apnea): Does not use CPAP as he is claustrophobic, however did tolerate BiPAP on day of admission. Now declining CPAP at night (13) Hypertension: Continue on metoprolol succinate 150 mg p.o. daily, isosorbide mononitrate 120 mg p.o. daily, torsemide as above (14) Diabetes mellitus type 2, controlled, with complications: -Normally on 70/30 at home. A1c 6.0% in March of this year. Was placed on sliding scale insulin here. I took up the patient's care on the day of discharge and this nearly 30-day hospital stay. I have stopped all insulin. Blood sugars have been under 140 consistently for the last few days. Has been on sliding scale insulin order. Total Time Total Time Spent Total Time Spent (In Minutes): 60 minutes plus 25 minutes trying to get lab draws and calls to the lab for timely reporting. Discharge Plan Discharge Items Patient Disposition: Transfer [facility] Reason For Visit: SOB Discharge Diagnosis: HFpEF exacerbation, chronic respiratory failure Health Concerns: Please encourage oral fluids and check BMP in 2 days. Sodium is 144 at the time of discharge 07/02 and BUN/cr 47/1.7, about stable for the last many days. However torsemide has been increased to 60 twice daily at the time of discharge while he was on 40 mg daily twice daily here for many days. In short the patient was evaluated by his PCP within 2 to 3 days Activity: As commented below Activity Comment: pe physical therapy Non-emergency contact: Primary Care Provider Call non-emergency contact if: you have any medication questions Follow-up/Referrals: Candida Andrea CRNP [Primary Care Provider] - Blanca Aguirre PA-C [Physician Non Destructive Evaluation Specialist] - 07/03/22 12:30 pm Diet: Carb Consistent or DM2 and Heart Healthy Addtl Attending Provider Instructions: Strict diet adherence is necessary. Follow-up with BMP in 2 to 3 days since dose of torsemide increased to 60 mg twice a day after discharge. Pending Studies at Discharge: No Stand-Alone Forms: My [facility] Skilled Items Patient informed of condition?: Yes DNR: No Discharge Level of Care: Skilled Communicable Disease: No Discharge Prognosis: Stable Lines: None Urinary Catheter: No Medications and DC Order Prescriptions: New cholestyramine-aspartame [Prevalite] 4 gram Powder In Packet 4 g PO BID@1000,2200 Qty: 60 0RF polyvinyl alcohol [Artificial Tears (polyvin alc)] 1.4 % Drops 2 drp ophthalmic (eye) QID Qty: 15 0RF metoprolol succinate 50 mg Tablet Extended Release 24 Hr 150 mg PO QAM Qty: 7 0RF melatonin 3 mg Tablet 3 mg PO HS PRN (Reason: sleep) Qty: 7 0RF Continued cholecalciferol (vitamin D3) 2,000 unit capsule 2,000 unit PO DAILY Qty: 0 Label Comments: TAKE WITH THE MAIN MEAL OF THE DAY. Rx Instructions: TAKE WITH MAIN MEAL OF THE DAY ([facility]) One Touch Ava Meter Kit See Rx Instructions .Route .MEDSUPPLY Qty: 1 0RF Rx Instructions: Glucometer .test BID; (DME) OneTouch Verio test strips Strip See Dose Instructions .ROUTE .MEDSUPPLY Qty: 100 5RF Rx Instructions: test BID allopurinol 300 mg tablet 300 mg PO QAM Qty: 90 3RF levothyroxine 75 mcg tablet 75 mcg PO .COMPLEX Qty: 45 3RF Rx Instructions: 75 mcg PO every other day, rotating with 50mcg tabs; levothyroxine 50 mcg tablet 50 mcg PO .COMPLEX Qty: 45 3RF Rx Instructions: 50 mcg PO every other day, rotating with 75mcg tabs; (DME) Portable Oxygen Misc See Rx Instructions .Route Qty: 1 0RF Rx Instructions: Use 2L via nasal canula upon ambulation & exertion (DME) portable oxygen concentrator See Rx Instructions .Route .MEDSUPPLY Qty: 1 0RF Rx Instructions: As directed ([facility]) OneTouch Verio test strips Strip See Rx Instructions .Route Qty: 100 5RF Rx Instructions: check blood sugar three times daily before meals and prn (DME) lancets [OneTouch Delica Lancets] 33 gauge misc See Dose Instructions .ROUTE .MEDSUPPLY Qty: 100 5RF Rx Instructions: Check sugars TID AC and prn (DME) pen needle, diabetic [BD Ultra-Fine Mini Pen Needle] 31 gauge x 3/16" needle See Dose Instructions .ROUTE .MEDSUPPLY Qty: 200 5RF Rx Instructions: Use with insulin BID isosorbide mononitrate 120 mg tablet extended release 24 hr 120 mg PO QAM Qty: 90 3RF multivitamin [Daily Multi-Vitamin] tablet 1 tab PO DAILY Combivent Respimat 20-100 mcg/actuation mist 2 puff INHALATION Q6H PRN (Reason: sob/wheezing) Qty: 4 5RF gabapentin 100 mg capsule 100 mg PO AMPM potassium chloride 20 mEq tablet extended release 40 meq PO BID Qty: 360 3RF apixaban 5 mg tablet 5 mg PO BID Qty: 60 5RF atorvastatin 40 mg tablet 40 mg PO QPM Qty: 30 5RF lorazepam 0.5 mg Tablet 0.5 mg PO HS PRN (Reason: Sleep) torsemide 20 mg tablet 60 mg PO BID mirtazapine 7.5 mg tablet 7.5 mg PO HS Rx Instructions: 7.5 mg orally at bedtime; Discontinued metoprolol succinate 200 mg tablet extended release 24 hr 200 mg PO QAM Qty: 90 1RF insulin asp prt-insulin aspart 100 unit/mL (70-30) insulin pen 15 unit subcut AMPM Qty: 15 0RF Discharge Orders: Discharge Order (Routine); Ordered 07/02/22 Ordered By: Karthikeyan Rajput Admission Data Admit Date/Time: 06/10/22 17:04 Attending Provider: Karthikeyan Rajput Admit Provider: Khang Andrade Primary Care Provider: Candida Andrea Other Providers: [facility] ; [place] ; [place] ; Khang Andrade ; Blanca Aguirre ; Kt Horowitz ; [facility] Other Interventions: Discharge Summary Assessment (RN) Last Done: 07/02/22 11:31 Coding Level of Care Code D/C DAY MANAGEMENT >30 MINS Diagnoses Acute on chronic heart failure with preserved ejection fraction (HFpEF) I50.33 Acute and chronic respiratory failure with hypoxia J96.21 Hypernatremia E87.0 Chronic anemia D64.9 Anxiety F41.9 CVA (cerebral vascular accident) I63.9 Elevated troponin I level R77.8 Chronic kidney disease, stage 4 (severe) N18.4 COPD (chronic obstructive pulmonary disease) J44.9 Hypothyroidism E03.9 Hypothyroidism type: acquired Permanent atrial fibrillation I48.2 TAMIKA (obstructive sleep apnea) G47.33 Hypertension I10 Diabetes mellitus type 2, controlled, with complications E11.8
[2022-07-02 16:22] LABS: BUN Creatinine Ratio 27.5 (10-20); Calcium 8.8 mg/dl (8.5-10.1); Creatinine Clr Calc Pharmacy 42.5 ml/min; Est GFR (African American) 42.9 ml/min; Potassium 3.6 mmol/L (3.5-5.1)
== END 2022-07-02 16:29 | DRG 291 ==
LOC: ED 15:15 → SUATTDRO 17:04 → 2S 17:04 → 2N 06-11 17:12 → 3N 06-15 01:12

== ENCOUNTER 2022-07-22 19:09 | Inpatient (IN) ==
[2022-07-22] MEDS ORDERED: methylPREDNISolone 125 MG/2 ML VIAL IV STA (19:43)
[2022-07-22] MEDS ORDERED: ALBUT/IPRATROP 3MG/0.5MG NEB 3 ML VIAL NEB STA (19:43)
--- NOTE | 2022-07-22 19:46 | Emergency Department Note ---
Impression & Plan COPD (chronic obstructive pulmonary disease) ADMIT ED Provider Note HPI: The patient is an 81-year-old gentleman with history of chronic respiratory failure, reportedly being admitted to hospice, presents to the emergency department from [facility] with agitation. Patient was being evaluated today for hospice placement, he became agitated, had some shortness of breath with oxygen saturations in the low 80s per EMS, he was therefore sent to the ED via EMS for further assessment. On arrival the patient is more calm appearing, he is on nasal cannula oxygen and his saturations are in the 90s. Patient is an overall poor historian, he is able to tell me that he feels "well" on arrival. ROS: -Pulmonary: Acute on chronic respiratory failure -Psychiatric: Agitation/delirium at nursing facility *10 point review systems was conducted and is otherwise negative unless stated above *Outpatient medications and allergy history reviewed PE: General: Alert, frail-appearing HEENT: Normocephalic, trachea midline Eyes: Extraocular eye movement is intact, no scleral erythema Pulmonary: Diminished bilaterally without wheezing Cardio: Regular rate and rhythm GI: Abdomen is soft, nontender : No suprapubic tenderness MSK: No evidence of trauma or malformation of the extremities, no edema Skin: No evidence of rash Neuro: Alert, no focal deficits Psychiatric: Cooperative monitoring tech: - An order was placed for continuous cardiac monitoring - Patient was noted to be in atrial fibrillation with a rate of 90 EKG: Rate: 77 Rhythm: Atrial fibrillation Intervals: Within normal limits ST changes: No ST elevation Time: 2007 Interventions provided in ED: -IV Solu-Medrol, DuoNeb breathing treatment, supplemental oxygen Medical Decision Making: Patient presented to the emergency department from his nursing facility with agitation, he was reportedly being evaluated for hospice placement secondary to his end-stage COPD/respiratory failure. On arrival here to the ED the patient appears more comfortable, he was placed on nasal cannula oxygen with good improvement. Venous blood gas does show evidence of some hypercarbic res piratory failure, chest x-ray shows evidence of some pleural effusions. Patient was maintained on nasal cannula oxygen, CT imaging of the head was obtained that does not show any evidence of any acute intracranial process. While the patient was here in the ED he did become delirious, told me that he felt like he was being "kidnapped" and was asking for an escape route out of the hospital. He was given some Haldol for his delirium and agitation. Nasal cannula oxygen was placed on the patient as when he removed it he had desaturations at 79%. Patient's case was discussed with his daughter, Joe, on the phone. She confirms that the patient is being evaluated for hospice placement secondary to his end-stage COPD. She states that he is to be DNR/DNI at this point. [facility] was contacted in regards to the patient, states they would be unable to accept the patient back to their facility and would require administrative approval per case management report to me. Therefore case was discussed with the on-call hospitalist for [facility], Dr. Jaquez, who accepted the patient to an inpatient bed for further management as well as hospice consultation. Critical care time: 35 minutes -Management of acute delirium requiring IV medications, management of acute on chronic respiratory failure with oxygen saturations less than 90% despite supplemental oxygen requiring increased oxygen, DuoNeb breathing treatment, and IV steroids for correction, time spent at the bedside, interpretation of diagnostic studies, and arrangement of admission Diagnosis: 1. Acute delirium 2. Acute on chronic respiratory failure with hypoxia 3. Hypercarbic respiratory failure/respiratory acidosis 4. 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 YEAR 10 YEARS AGO History of bronchoscopy History of cardiac cath NO STENTS History of cataract surgery rt/left History of colonoscopy History of ear surgery LEFT MASTOIDECTOMY (DEAF IN LEFT EAR) History of tonsillectomy History of tooth extraction History of total knee replacement RT S/P cholecystectomy Family History Son Colon cancer Coronary heart disease Sister Hypothyroidism Lymphoma Stroke Mother Aortic aneurysm Diabetes Father Heart disease Myocardial infarction Sister Liver problem Other Hypertension Denies family history of Ovarian cancer Prostate cancer Breast cancer Social History Smoking Status: Never smoker Tobacco Type: Cigarettes Age Started Using Tobacco: 16; Age Quit Using Tobacco: 39; packs per day: 5; Second Hand Exposure: No; Hx Alcohol Use: Yes Hx Substance Use: No Preferred Language: Kenyan Communication Ability: Effective Visual Impairment: No Limitations Hearing Ability: Use of Hearing Aid 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 Required: No Beliefs That Will Affect Care: None marital status: Current Living Situation: Spouse current occupational status: retired current occupation: retired from [employer] How many Children do You have: 3 Feels Safe at Home: Yes Childhood Exposure to Second-Hand Smoke: No caffeine: No during the past year weight has: remained stable Dental Care, Regularly: Yes Physical Activity Frequency: Does not Exercise Seatbelt Use: always Sunscreen Use: No Assistive Devices: Cane and Walker Allergies Allergies Allergy/AdvReac Type Severity Reaction Status Date / Time morphine Allergy Intermediate DELUSIONS, Verified 07/22/22 19:46 "LOSES TIME" adhesive Allergy Mild RASH Verified 07/22/22 19:46 latex AdvReac Intermediate BLISTERS Verified 07/22/22 19:46 SKIN Home Meds Home Medications Medication Instructions Recorded Confirmed gabapentin 100 mg capsule 100 mg PO AMPM 01/14/22 07/22/22 mirtazapine 7.5 mg tablet 7.5 mg PO HS 06/10/22 07/22/22 ipratropium 20 mcg-albuterol 100 2 puff inhalation Q6H PRN 07/08/22 07/22/22 mcg/actuation mist for inhalation Shortness Of Breath (Combivent Respimat) potassium chloride 20 mEq 40 meq PO BID 07/08/22 07/22/22 tablet,extended release torsemide 20 mg tablet 60 mg PO BID 07/08/22 07/22/22 cholecalciferol (vitamin D3) 50 50 mcg PO DAILY 07/22/22 07/22/22 mcg (2,000 unit) capsule (Vitamin D3) docusate sodium 100 mg capsule 100 mg PO BID 07/22/22 07/22/22 isosorbide mononitrate 120 mg 120 mg PO DAILY 07/22/22 07/22/22 tablet,extended release 24 hr melatonin 3 mg tablet 3 mg PO HS 07/22/22 07/22/22 metoprolol succinate 100 mg 100 mg PO QAM 07/22/22 07/22/22 tablet,extended release 24 hr metoprolol succinate 50 mg 50 mg PO QAM 07/22/22 07/22/22 tablet,extended release 24 hr multivitamin (Daily-Radha tablet) 1 tab PO DAILY 07/22/22 07/22/22 Previous Rx's Medication Instructions Recorded allopurinol 300 mg tablet 300 mg PO QAM #90 tabs 10/10/21 levothyroxine 50 mcg tablet 50 mcg PO .COMPLEX #45 tabs 02/13/22 levothyroxine 75 mcg tablet 75 mcg PO .COMPLEX #45 tabs 02/13/22 apixaban 5 mg tablet 5 mg PO BID #60 tabs 05/21/22 atorvastatin 40 mg tablet 40 mg PO QPM #30 tabs 05/21/22 cholestyramine-aspartame 4 gram 4 g PO BID@1000,2200 #60 ea 07/02/22 oral powder for susp in a packet (Prevalite) polyvinyl alcohol 1.4 % eye drops 2 drp ophthalmic (eye) QID #15 mL 07/02/22 (Artificial Tears (polyvinyl alcohol)) Results & Data (ED) Vital Signs Vital Signs - 24 hr 07/22/22 19:37 07/22/22 20:11 07/22/22 20:15 Temperature 37.1 C Temperature Source Oral Pulse Rate 80 85 Pulse Rate from SpO2 Sensor Respiratory Rate 28 H 22 Respiratory Effort / Characteristics Short of Breath Respiratory Pattern Tachypnea Blood Pressure 172/89 H Blood Pressure Mean 116 Pulse Oximetry 94 95 94 Oxygen Delivery Method Nasal Cannula Nasal Cannula Nasal Cannula Oxygen Flow Rate 4 3 3 Sepsis Recent Fever Within 48 Hours No Sepsis New/Unexplained Change in Mental Status Yes Sepsis Action Taken by Nursing No Action Required 07/22/22 20:00 07/22/22 20:00 07/22/22 20:30 Temperature Temperature Source Pulse Rate 76 Pulse Rate from SpO2 Sensor 80 Respiratory Rate 29 H Respiratory Effort / Characteristics Respiratory Pattern Blood Pressure 167/82 H 164/90 H Blood Pressure Mean 110 114 Pulse Oximetry 92 Oxygen Delivery Method Nasal Cannula Oxygen Flow Rate 3 Sepsis Recent Fever Within 48 Hours Sepsis New/Unexplained Change in Mental Status Sepsis Action Taken by Nursing 07/22/22 20:30 07/22/22 21:09 07/22/22 21:09 Temperature Temperature Source Pulse Rate 77 86 Pulse Rate from SpO2 Sensor 77 79 Respiratory Rate 20 30 H Respiratory Effort / Characteristics Respiratory Pattern Blood Pressure 156/53 H Blood Pressure Mean 87 Pulse Oximetry 93 91 Oxygen Delivery Method Nasal Cannula Nasal Cannula Oxygen Flow Rate 3 3 Sepsis Recent Fever Within 48 Hours Sepsis New/Unexplained Change in Mental Status Sepsis Action Taken by Nursing 07/22/22 21:25 07/22/22 21:31 07/22/22 21:31 Temperature Temperature Source Pulse Rate 84 83 Pulse Rate from SpO2 Sensor 80 82 Respiratory Rate 24 24 Respiratory Effort / Characteristics Respiratory Pattern Blood Pressure 153/69 H Blood Pressure Mean 97 Pulse Oximetry 89 L 94 Oxygen Delivery Method Nasal Cannula Nasal Cannula Oxygen Flow Rate 3 3 Sepsis Recent Fever Within 48 Hours Sepsis New/Unexplained Change in Mental Status Sepsis Action Taken by Nursing 07/22/22 23:20 07/22/22 23:20 07/22/22 23:30 Temperature Temperature Source Pulse Rate 88 Pulse Rate from SpO2 Sensor 88 Respiratory Rate Respiratory Effort / Characteristics Respiratory Pattern Blood Pressure 168/66 H 145/81 H Blood Pressure Mean 100 102 Pulse Oximetry 91 Oxygen Delivery Method Nasal Cannula Oxygen Flow Rate 3 Sepsis Recent Fever Within 48 Hours Sepsis New/Unexplained Change in Mental Status Sepsis Action Taken by Nursing 07/22/22 23:30 07/23/22 00:00 07/23/22 00:01 Temperature Temperature Source Pulse Rate 82 89 95 H Pulse Rate from SpO2 Sensor 83 88 Respiratory Rate 22 24 22 Respiratory Effort / Characteristics Respiratory Pattern Blood Pressure Blood Pressure Mean Pulse Oximetry 91 Oxygen Delivery Method Nasal Cannula Oxygen Flow Rate 3 Sepsis Recent Fever Within 48 Hours Sepsis New/Unexplained Change in Mental Status Sepsis Action Taken by Nursing 07/23/22 00:01 07/23/22 02:17 Temperature Temperature Source Pulse Rate 93 H Pulse Rate from SpO2 Sensor 97 H Respiratory Rate 21 Respiratory Effort / Characteristics Respiratory Pattern Blood Pressure 130/109 H 178/75 H Blood Pressure Mean 116 109 Pulse Oximetry 90 Oxygen Delivery Method Nasal Cannula Oxygen Flow Rate 5 Sepsis Recent Fever Within 48 Hours Sepsis New/Unexplained Change in Mental Status Sepsis Action Taken by Nursing Laboratory Data Result diagrams: 07/22/22 19:48 07/22/22 19:48 Lab Results 07/22/22 07/22/22 07/22/22 Range/Units 19:48 19:48 19:48 WBC 8.43 (4.8-10.8) K/ul RBC 3.70 L (4.63-6.08) M/uL Hgb 11.4 L (14.0-18.0) g/dl Hct 38.9 L (40.1-51.0) % MCV 105.1 H (80.0-100.0) fL MCH 30.8 (25.0-34.0) pg MCHC 29.3 L (32.0-36.0) g/dL RDW Std Deviation 57.4 H (36.4-46.3) fL RDW Coeff of Liam 15.0 H (11.5-14.5) % Plt Count 156 (130-400) K/uL MPV 11.0 (9.4-12.4) fL Immature Gran % (Auto) 0.6 % Neut % (Auto) 78.1 % Lymph % (Auto) 8.3 % [place] % (Auto) 9.5 % Eos % (Auto) 3.1 % Baso % (Auto) 0.4 % Neut # (Auto) 6.59 H (1.4-6.5) K/uL Lymph # (Auto) 0.70 L (1.2-3.4) K/uL [place] # (Auto) 0.80 (0.24-0.82) K/uL Eos # (Auto) 0.26 (0-0.50) K/uL Baso # (Auto) 0.03 (0-0.2) K/uL Immature Gran # (Auto) 0.05 H (0.00-0.02) K/uL APTT 29.1 (21.0-31.0) Seconds PTT Ratio 1.1 VBG pH (7.36-7.41) VBG pCO2 (38-50) mmHg VBG pO2 mmHg VBG HCO3 mmol/L VBG O2 Saturation % VBG Base Excess mEq/L Sodium 145 (136-145) mmol/L Potassium 4.6 (3.5-5.1) mmol/L Chloride 106 (98-107) mmol/L Carbon Dioxide 38 H (21-32) mmol/L Anion Gap 1 L (3-11) BUN 49 H (6-23) mg/dl Creatinine 1.97 H (0.6-1.4) mg/dl Est Cr Clr Drug Dosing 37.9 ml/min Est GFR ( Amer) 36.1 ml/min Est GFR (Non-Af Amer) 31.2 ml/min BUN/Creatinine Ratio 24.9 H (10-20) Glucose 136 H (70-99(Fasting)) mg/dl POC Glucose (70-99) mg/dl Calcium 8.7 (8.5-10.1) mg/dl Total Bilirubin 0.9 (0.2-1.0) mg/dl AST 21 (13-39) U/L ALT 16 (7-52) U/L Alkaline Phosphatase 160 H (34-104) U/L Troponin I High Sens 34.7 H (0-20) pg/ml Total Protein 6.4 (6.0-8.3) gm/dl Albumin 3.4 (3.4-5.0) gm/dl Globulin 3.0 (2.5-4.0) gm/dl Albumin/Globulin Ratio 1.1 (0.9-2) SARS-CoV-2, RNA, NAAT (NEGATIVE) 07/22/22 07/22/22 07/22/22 Range/Units 19:50 20:21 20:42 WBC (4.8-10.8) K/ul RBC (4.63-6.08) M/uL Hgb (14.0-18.0) g/dl Hct (40.1-51.0) % MCV (80.0-100.0) fL MCH (25.0-34.0) pg MCHC (32.0-36.0) g/dL RDW Std Deviation (36.4-46.3) fL RDW Coeff of Liam (11.5-14.5) % Plt Count (130-400) K/uL MPV (9.4-12.4) fL Immature Gran % (Auto) % Neut % (Auto) % Lymph % (Auto) % [place] % (Auto) % Eos % (Auto) % Baso % (Auto) % Neut # (Auto) (1.4-6.5) K/uL Lymph # (Auto) (1.2-3.4) K/uL [place] # (Auto) (0.24-0.82) K/uL Eos # (Auto) (0-0.50) K/uL Baso # (Auto) (0-0.2) K/uL Immature Gran # (Auto) (0.00-0.02) K/uL APTT (21.0-31.0) Seconds PTT Ratio VBG pH 7.30 L (7.36-7.41) VBG pCO2 77 H (38-50) mmHg VBG pO2 33 mmHg VBG HCO3 38 mmol/L VBG O2 Saturation < 60.0 % VBG Base Excess 8.4 mEq/L Sodium (136-145) mmol/L Potassium (3.5-5.1) mmol/L Chloride (98-107) mmol/L Carbon Dioxide (21-32) mmol/L Anion Gap (3-11) BUN (6-23) mg/dl Creatinine (0.6-1.4) mg/dl Est Cr Clr Drug Dosing ml/min Est GFR ( Amer) ml/min Est GFR (Non-Af Amer) ml/min BUN/Creatinine Ratio (10-20) Glucose (70-99(Fasting)) mg/dl POC Glucose 118 H (70-99) mg/dl Calcium (8.5-10.1) mg/dl Total Bilirubin (0.2-1.0) mg/dl AST (13-39) U/L ALT (7-52) U/L Alkaline Phosphatase (34-104) U/L Troponin I High Sens (0-20) pg/ml Total Protein (6.0-8.3) gm/dl Albumin (3.4-5.0) gm/dl Globulin (2.5-4.0) gm/dl Albumin/Globulin Ratio (0.9-2) SARS-CoV-2, RNA, NAAT NEGATIVE (NEGATIVE) Administered Medications Discontinued Medications Albuterol (Albut/Ipratrop 3mg/0.5mg Neb 3 Ml Vial) 3 ml NEB NOW STA; Protocol Stop: 07/22/22 19:44 Last Admin: 07/22/22 20:02 Dose: 3 ml Documented By: Haloperidol Lactate (Haloperidol Lactate 5 Mg/Ml 1 Ml Vial) 2.5 mg IV NOW STA Stop: 07/22/22 22:53 Last Admin: 07/22/22 23:20 Dose: 2.5 mg Documented By: ZEYNEP Ioversol (Optiray 350 100ml) 85 ml IV ONCE ONE Stop: 07/22/22 20:36 Last Admin: 07/22/22 20:35 Dose: 85 ml Documented By: MOLLY Methylprednisolone (Methylprednisolone 125 Mg/2 Ml Vial) 125 mg IV NOW STA Stop: 07/22/22 19:44 Last Admin: 07/22/22 20:01 Dose: 125 mg Documented By: Imaging Data Radiologist's Impression: Chest X-Ray 07/22/22 19:43 XR chest 1V portable HISTORY: 81 years-old Male Dyspnea acute shortness of breath COMPARISON: Chest radiograph 07/07/2022 TECHNIQUE: AP view of the chest FINDINGS: Cardiac silhouette is enlarged. Pulmonary vascular congestion with interstitial coarsening. Layering pleural effusions with bibasilar and right midlung consolidation. Atherosclerosis of the aorta. Bones of the chest appear grossly intact. IMPRESSION: 1. Cardiomegaly with pulmonary edema. 2. Layering pleural effusions with right greater than left bibasilar consolidation. ACT 112: Negative or not required by law. The above report was generated using voice recognition software. It may contain grammatical, syntax or spelling errors. Electronically signed by: Tonio Jensen M.D. 07/22/2022 8:15 PM Discharge Plan Visit Data Chief Complaint: Altered Mental Status Stated Complaint: ALTERED ED Provider: Chirag Marin Discharge Problem: COPD (chronic obstructive pulmonary disease) Forms Stand Alone Forms: My [facility] [employer] Prescriptions Prescriptions: No Action allopurinol 300 mg tablet 300 mg PO QAM Qty: 90 3RF levothyroxine 75 mcg tablet 75 mcg PO .COMPLEX Qty: 45 3RF Rx Instructions: 75 mcg PO every other day, rotating with 50mcg tabs; levothyroxine 50 mcg tablet 50 mcg PO .COMPLEX Qty: 45 3RF Rx Instructions: 50 mcg PO every other day, rotating with 75mcg tabs; gabapentin 100 mg capsule 100 mg PO AMPM apixaban 5 mg tablet 5 mg PO BID Qty: 60 5RF atorvastatin 40 mg tablet 40 mg PO QPM Qty: 30 5RF torsemide 20 mg Tablet 60 mg PO BID potassium chloride 20 mEq Tablet Extended Release 40 meq PO BID Combivent Respimat 20-100 mcg/actuation Mist 2 puff INHALATION Q6H PRN (Reason: Shortness Of Breath) mirtazapine 7.5 mg tablet 7.5 mg PO HS Rx Instructions: 7.5 mg orally at bedtime; polyvinyl alcohol [Artificial Tears (polyvin alc)] 1.4 % Drops 2 drp ophthalmic (eye) QID Qty: 15 0RF cholestyramine-aspartame [Prevalite] 4 gram Powder In Packet 4 g PO BID@1000,2200 Qty: 60 0RF multivitamin [Daily-Radha] Tablet 1 tab PO DAILY metoprolol succinate 100 mg tablet extended release 24 hr 100 mg PO QAM Rx Instructions: TOTAL DOSE 150 MG--TAKES WITH 50 MG TAB. melatonin 3 mg Tablet 3 mg PO HS isosorbide mononitrate 120 mg Tablet Extended Release 24 Hr 120 mg PO DAILY docusate sodium 100 mg Capsule 100 mg PO BID cholecalciferol (vitamin D3) [Vitamin D3] 50 mcg (2,000 unit) Capsule 50 mcg PO DAILY metoprolol succinate 50 mg tablet extended release 24 hr 50 mg PO QAM Rx Instructions: TOTAL DOSE 150 MG--TAKES WITH 100 MG TAB. Referrals Referrals: Carmelina Bonilla [Non-Staff] - : COPD (chronic obstructive pulmonary disease) Qualifiers: COPD type: COPD with acute exacerbation Qualified Code(s): J44.1 - Chronic obstructive pulmonary disease with (acute) exacerbation
[2022-07-22 20:01] LABS: Basophils # (auto) 0.03 K/uL (0-0.2); Basophils % (auto) 0.4 %; Eosinophils # (auto) 0.26 K/uL (0-0.50); Eosinophils % (auto) 3.1 %; Hematocrit (blood only) 38.9 % (40.1-51.0); Hemoglobin 11.4 g/dl (14.0-18.0); Immature Granulocytes # (auto) 0.05 K/uL (0.00-0.02); Immature Granulocytes % (auto) 0.6 %; Lymphocytes % (auto) 8.3 %; Mean Corpuscular Hemoglobin 30.8 pg (25.0-34.0); Mean Corpuscular Hgb Conc 29.3 g/dL (32.0-36.0); Mean Corpuscular Volume 105.1 fL (80.0-100.0); Monocytes % (auto) 9.5 %; Neutrophils # (auto) 6.59 K/uL (1.4-6.5); Neutrophils % (auto) 78.1 %; Platelet Count 156 K/uL (130-400); RDW Standard Deviation 57.4 fL (36.4-46.3); White Blood Count 8.43 K/ul (4.8-10.8)
--- NOTE | 2022-07-22 20:17 | XRay Report ---
XR chest 1V portable HISTORY: 81 years-old Male Dyspnea acute shortness of breath COMPARISON: Chest radiograph 07/07/2022 TECHNIQUE: AP view of the chest FINDINGS: Cardiac silhouette is enlarged. Pulmonary vascular congestion with interstitial coarsening. Layering pleural effusions with bibasilar and right midlung consolidation. Atherosclerosis of the aorta. Bones of the chest appear grossly intact. IMPRESSION: 1. Cardiomegaly with pulmonary edema. 2. Layering pleural effusions with right greater than left bibasilar consolidation. ACT 112: Negative or not required by law. The above report was generated using voice recognition software. It may contain grammatical, syntax o r spelling errors. Electronically signed by: Tonio Jensen M.D. 07/22/2022 8:15 PM
[2022-07-22 20:22] LABS: Partial Thromboplastin Ratio 1.1; Partial Thromboplastin Time 29.1 Seconds (21.0-31.0)
[2022-07-22 20:24] LABS: Albumin Globulin Ratio 1.1 (0.9-2); Albumin Level 3.4 gm/dl (3.4-5.0); BUN Creatinine Ratio 24.9 (10-20); Bilirubin,Total 0.9 mg/dl (0.2-1.0); Calcium 8.7 mg/dl (8.5-10.1); Creatinine Clr Calc Pharmacy 37.9 ml/min; Est GFR (African American) 36.1 ml/min; Est GFR (Non-African American) 31.2 ml/min; Potassium 4.6 mmol/L (3.5-5.1); Total Protein 6.4 gm/dl (6.0-8.3)
[2022-07-22 20:30] LABS: Troponin I High Sensitivity 34.7 pg/ml (0-20)
[2022-07-22] MEDS ORDERED: OPTIRAY 350 100ml IV ONE (20:35)
[2022-07-22 20:53] LABS: Base Excess VBG 8.4 mEq/L; HCO3 VBG 38 mmol/L; Oxygen Saturation VBG < 60.0 %; PCO2 VBG 77 mmHg (38-50); PO2 VBG 33 mmHg
[2022-07-22] MEDS ORDERED: HALOPERIDOL LACTATE 5 MG/ML 1 ML VIAL IV STA (22:52)
[2022-07-23] MEDS ORDERED: IPRATROPIUM BROMIDE/ALBUTEROL respimat INH INH PRN (04:07)
[2022-07-23] MEDS ORDERED: ACETAMINOPHEN 325 MG TAB PO PRN (04:07)
[2022-07-23] MEDS ORDERED: Ipratropium HFA Inhaler (Combivent Respimat P&T Subs) INH PRN (04:20)
[2022-07-23] MEDS ORDERED: Albuterol HFA 8 GM Inhaler (Combivent Respimat P&T Subs) INH PRN (04:20)
[2022-07-23] MEDS: AZITHROMYCIN 500 MG in DEXTROSE 5% 250 ML IV SCH (05:12)
[2022-07-23] MEDS ORDERED: LEVOTHYROXINE SODIUM 75 MCG TABLET PO SCH (06:30)
--- NOTE | 2022-07-23 07:11 | CT Scan Report ---
CT head/brain wo con CLINICAL HISTORY: AMS Technique: Contiguous axial CT images of the head were acquired from the base of the skull to the vignesh amrit without intravenous contrast administration. Images were viewed in brain, subdural and [facility]. Automated dose lowering techniques and/or adjustment according to patient size were utilized for this exam. Comparison: Comparison is made to CT head 07/07/2022 Findings: The ventricles, basal cisterns, and cerebral sulci are normal. There is no acute intracranial hemorrh age or evidence of acute territorial infarction. Neither mass effect, shift of the midline structures , nor abnormal extra-axial fluid collections are shown. Imaged portions of the paranasal sinuses and mastoid air cells are clear. The orbits appear normal. There are no acute fractures of the calvaria or scalp swelling. Impression: No acute intracranial hemorrhage, no evidence of acute territorial infarction or other acute intracra nial disease process. ACT 112: Negative or not required by law. Electronically signed by: Saturnino Parra M.D. 07/23/2022 7:10 AM
[2022-07-23] MEDS: allopurinoL 300 MG TAB PO SCH (07:20)
[2022-07-23] MEDS: APIXABAN 5 MG TABLET PO SCH ×2 (07:21→23:06)
[2022-07-23] MEDS: ISOSORBIDE MONO EXTENDED REL 60 MG TABCR PO SCH (07:22)
[2022-07-23] MEDS: METOPROLOL SUCC 50MG EXT REL TAB PO SCH ×2 (07:22)
[2022-07-23] MEDS: DOCUSATE SODIUM 100 MG CAP PO SCH ×2 (07:22→23:06)
[2022-07-23] MEDS: ARTIFICIAL TEARS OP SCH ×4 (07:23→23:06)
[2022-07-23 07:42] LABS: Appearance Urine Clear (Clear); Bilirubin Urine Negative (Negative); Blood Urine Trace (Negative); Color Urine Yellow; Epithelial Cell Urine Auto 20-30 /lpf (0-5); Glucose Urine UA Negative (Negative); Ketones Urine Negative (Negative); Leukocyte Esterase Urine Negative (Negative); Nitrite Urine Negative (Negative); Protein Urine 3+ (Negative); RBC Urine Automated 0-4 /hpf (0-4); Specific Gravity Urine 1.013 (1.000-1.030); Urobilinogen Urine Negative (Negative)
--- NOTE | 2022-07-23 07:51 | History & Physical Report ---
Date of Service July 23, 2022 Assessment & Plan (1) Altered mental status: Plan: Patient presents to ED brought in from [facility] with agitation and altered mental status. Patient's altered mental status most likely secondary to acute delirium likely from underlying COPD and underlying agitation. CT of the head obtained that does not show any evidence of acute intracranial process. Continue oxygen supplementation. Based on discussions at in the ED with patient's daughter Joe confirmation made the patient is being evaluated for hospice placement secondary to his underlying end-stage COPD. Patient's daughter also requested patient to be DNR/DNI at this point as well. Further planning regarding management of his underlying delirium to be made based on family discussions with case management in a.m. (2) Acute and chronic respiratory failure with hypoxia: Plan: Patient has underlying end-stage COPD Continue bronchodilators and oxygen supplementation as needed Avoid high-dose steroids as this could aggravate his underlying delirium (3) COPD (chronic obstructive pulmonary disease): Plan: Patient has end-stage COPD. Family wishes patient to be placed in hospice based on discussions in ED with his daughter Joe. (4) Elevated troponin level: Plan: Patient has history of coronary artery disease and high sensitive troponin in ED was 37 but patient does not have any acute chest pain at this time Will check serial troponin levels to ensure there is no ongoing acute ischemia Patient noted to be on torsemide and nursing facility will check I's and O's Start Lasix IV 20 mg daily monitor volume status (5) Diabetes mellitus type 2, controlled, with complications: Plan: Patient will be placed on sliding scale coverage with short acting insulin based on fingerstick monitoring (6) Hypothyroidism: Plan: Continue home dose of levothyroxine Check TSH level (7) Hypertension: Plan: Continue home dose metoprolol Monitor blood pressure trend titrate meds as tolerated Admission and Anticipated Discharge Date Admission Date: July 23, 2022 History of Present Illness Chief Complaint: Patient sent to ED with agitation and shortness of breath Primary Care Provider: [facility] This is a 81-year-old male with past medical history significant story of severe COPD, hypertension, diabetes, CKD 3, hypothyroidism lives in [facility] who was sent to the emergency department with complaints of worsening agitation. Patient is a challenging historian majority history is obtained from chart review and ED report. Patient has advanced COPD and has been evaluated for hospice placement yesterday and subsequent to this process patient became agitated which caused worsening shortness of breath and drop in oxygen saturation and hence EMS was summoned. As per EMS reports patient's ox ygen saturation was in the 80s and it responded to oxygen supplementation and patient was brought into ED for further evaluation. Upon arrival to the ED patient oxygen saturation improved and oxygen saturations was in the 90s when he became calmer. After respiratory treatments patient was stable to be discharged back to the facility and when ED physician reached out to [facility] to receive the patient back they had informed that they were unable to take the patient back due to his agitation and delirium state. Patient's family was contacted from ED and after multiple attempts with case management and family it was decided the patient will be placed in observation for his COPD delirium and accompanying delirium. Patient otherwise does not have any chest pain or cough or palpitations at this time. Allergies Allergy/AdvReac Type Severity Reaction Status Date / Time morphine Allergy Intermediate DELUSIONS, Verified 07/22/22 19:46 "LOSES TIME" adhesive Allergy Mild RASH Verified 07/22/22 19:46 latex AdvReac Intermediate BLISTERS Verified 07/22/22 19:46 SKIN Home Medications Medication Instructions Recorded Confirmed Type allopurinol 300 mg tablet 300 mg PO QAM #90 tabs 10/10/21 07/22/22 Rx gabapentin 100 mg capsule 100 mg PO AMPM 01/14/22 07/22/22 History levothyroxine 50 mcg tablet 50 mcg PO .COMPLEX #45 tabs 02/13/22 07/22/22 Rx levothyroxine 75 mcg tablet 75 mcg PO .COMPLEX #45 tabs 02/13/22 07/22/22 Rx apixaban 5 mg tablet 5 mg PO BID #60 tabs 05/21/22 07/22/22 Rx atorvastatin 40 mg tablet 40 mg PO QPM #30 tabs 05/21/22 07/22/22 Rx mirtazapine 7.5 mg tablet 7.5 mg PO HS 06/10/22 07/22/22 History cholestyramine-aspartame 4 gram 4 g PO BID@1000,2200 #60 ea 07/02/22 07/22/22 Rx oral powder for susp in a packet (Prevalite) polyvinyl alcohol 1.4 % eye drops 2 drp ophthalmic (eye) QID #15 mL 07/02/22 07/22/22 Rx (Artificial Tears (polyvinyl alcohol)) ipratropium 20 mcg-albuterol 100 2 puff inhalation Q6H PRN 07/08/22 07/22/22 History mcg/actuation mist for inhalation Shortness Of Breath (Combivent Respimat) potassium chloride 20 mEq 40 meq PO BID 07/08/22 07/22/22 History tablet,extended release torsemide 20 mg tablet 60 mg PO BID 07/08/22 07/22/22 History cholecalciferol (vitamin D3) 50 50 mcg PO DAILY 07/22/22 07/22/22 History mcg (2,000 unit) capsule (Vitamin D3) docusate sodium 100 mg capsule 100 mg PO BID 07/22/22 07/22/22 History isosorbide mononitrate 120 mg 120 mg PO DAILY 07/22/22 07/22/22 History tablet,extended release 24 hr melatonin 3 mg tablet 3 mg PO HS 07/22/22 07/22/22 History metoprolol succinate 100 mg 100 mg PO QAM 07/22/22 07/22/22 History tablet,extended release 24 hr metoprolol succinate 50 mg 50 mg PO QAM 07/22/22 07/22/22 History tablet,extended release 24 hr multivitamin (Daily-Radha tablet) 1 tab PO DAILY 07/22/22 07/22/22 History Past Med/Surg History Medical History Allergic rhinitis Arthritis BPH (benign prostatic hyperplasia) Cardiomyopathy Chronic kidney disease, stage 3 Chronic obstructive pulmonary disease Claustrophobia Congestive heart failure [facility] COPD (chronic obstructive pulmonary disease) Diabetic nephropathy associated with type 2 diabetes mellitus Hearing deficit 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 YEAR 10 YEARS AGO History of bronchoscopy History of cardiac cath NO STENTS History of cataract surgery rt/left History of colonoscopy History of ear surgery LEFT MASTOIDECTOMY (DEAF IN LEFT EAR) History of tonsillectomy History of tooth extraction History of total knee replacement RT S/P cholecystectomy Family History Son Colon cancer Coronary heart disease Sister Hypothyroidism Lymphoma Stroke Mother Aortic aneurysm Diabetes Father Heart disease Myocardial infarction Sister Liver problem Other Hypertension Denies family history of Ovarian cancer Prostate cancer Breast cancer Social History Smoking Status: Never smoker Tobacco Type: Cigarettes Age Started Using Tobacco: 16; Age Quit Using Tobacco: 39; packs per day: 5; Second Hand Exposure: No; Hx Alcohol Use: Yes Hx Substance Use: No Preferred Language: Luxembourger Communication Ability: Effective Visual Impairment: No Limitations Hearing Ability: Use of Hearing Aid Supervisor Files Required: No Beliefs That Will Affect Care: None marital status: Current Living Situation: Spouse current occupational status: retired current occupation: retired from [employer] How many Children do You have: 3 Feels Safe at Home: Yes Childhood Exposure to Second-Hand Smoke: No caffeine: No during the past year weight has: remained stable Dental Care, Regularly: Yes Physical Activity Frequency: Does not Exercise Seatbelt Use: always Sunscreen Use: No Assistive Devices: Cane and Walker Review of Systems Review of Systems: Unable to obtain full review of system because of patient's mental status Respiratory: Patient had shortness of breath upon initial presentation Cardiovascular: Additional Comments: No chest pain reported Gastrointestinal: No diarrhea vomiting Physical Exam Constitutional: No fevers or chills reported ENMT: Extraocular wounds intact Neck: No thyroid enlargement Respiratory: Bilateral air entry decreased at bases few scattered rhonchi hear d bilaterally Cardiovascular: S1-S2 heard normally no rubs Gastrointestinal (Abdomen): Abdomen soft nontender nondistended Skin: No rash Neurologic: Patient confused not oriented to time or place Results & Data Results & [facility] ([facility]) Vital Signs (Past 12 Hours) Vital Signs Temp Pulse Resp BP Pulse Ox Pulse Ox O2 Del Method 07/23/22 05:30 78 19 95 Nasal Cannula 07/23/22 05:30 188/95 H 07/23/22 05:20 187/96 H 07/23/22 05:20 88 22 95 Nasal Cannula 07/23/22 04:30 81 22 189/81 H 88 L Nasal Cannula 07/23/22 04:14 86 174/100 H 07/23/22 04:18 90 07/23/22 02:17 93 H 21 178/75 H 90 Nasal Cannula 07/23/22 00:01 130/109 H 07/23/22 00:01 95 H 22 07/23/22 00:00 89 24 07/22/22 23:30 82 22 91 Nasal Cannula 07/22/22 23:30 145/81 H 07/22/22 23:20 168/66 H 07/22/22 23:20 88 91 Nasal Cannula 07/22/22 21:31 83 24 94 Nasal Cannula 07/22/22 21:31 153/69 H 07/22/22 21:25 84 24 89 L Nasal Cannula 07/22/22 21:09 156/53 H 07/22/22 21:09 86 30 H 91 Nasal Cannula 07/22/22 20:30 77 20 93 Nasal Cannula 07/22/22 20:30 164/90 H 07/22/22 20:00 76 29 H 92 Nasal Cannula 07/22/22 20:00 167/82 H 07/22/22 20:15 94 Nasal Cannula 07/22/22 20:11 85 22 95 Nasal Cannula 07/22/22 19:37 37.1 C 80 28 H 172/89 H 94 Nasal Cannula O2 Del Method O2 Flow Rate O2 Flow Rate 07/23/22 05:30 4 07/23/22 05:30 07/23/22 05:20 07/23/22 05:20 4 07/23/22 04:30 5.5 07/23/22 04:14 07/23/22 04:18 Nasal Cannula 5.5 07/23/22 02:17 5 07/23/22 00:01 07/23/22 00:01 07/23/22 00:00 07/22/22 23:30 3 07/22/22 23:30 07/22/22 23:20 07/22/22 23:20 3 07/22/22 21:31 3 07/22/22 21:31 07/22/22 21:25 3 07/22/22 21:09 07/22/22 21:09 3 07/22/22 20:30 3 07/22/22 20:30 07/22/22 20:00 3 07/22/22 20:00 07/22/22 20:15 3 07/22/22 20:11 3 07/22/22 19:37 4 Laboratory Results Short CBC 07/22/22 Range/Units 19:48 WBC 8.43 (4.8-10.8) K/ul Hgb 11.4 L (14.0-18.0) g/dl Hct 38.9 L (40.1-51.0) % Plt Count 156 (130-400) K/uL BMP 07/22/22 19:48 Sodium 145 Potassium 4.6 Chloride 106 Carbon Dioxide 38 H BUN 49 H Creatinine 1.97 H Glucose 136 H Calcium 8.7 Liver Function 07/22/22 Range/Units 19:48 Total Bilirubin 0.9 (0.2-1.0) mg/dl AST 21 (13-39) U/L ALT 16 (7-52) U/L Alkaline Phosphatase 160 H (34-104) U/L Albumin 3.4 (3.4-5.0) gm/dl Diagnostic Findings Chest X-Ray 07/22/22 19:43 XR chest 1V portable HISTORY: 81 years-old Male Dyspnea acute shortness of breath COMPARISON: Chest radiograph 07/07/2022 TECHNIQUE: AP view of the chest FINDINGS: Cardiac silhouette is enlarged. Pulmonary vascular congestion with interstitial coarsening. Layering pleural effusions with bibasilar and right midlung consolidation. Atherosclerosis of the aorta. Bones of the chest appear grossly intact. IMPRESSION: 1. Cardiomegaly with pulmonary edema. 2. Layering pleural effusions with right greater than left bibasilar consolidation. ACT 112: Negative or not required by law. The above report was generated using voice recognition software. It may contain grammatical, syntax or spelling errors. Electronically signed by: Tonio Jensen M.D. 07/22/2022 8:[address] 07/22/22 20:26 CT head/brain wo con CLINICAL HISTORY: AMS Technique: Contiguous axial CT images of the head were acquired from the base of the skull to the vertex without intravenous contrast administration. Images were viewed in brain, subdural and bone windows. Automated dose lowering techniques and/or adjustment according to patient size were utilized for this exam. Comparison: Comparison is made to CT head 07/07/2022 Findings: The ventricles, basal cisterns, and cerebral sulci are normal. There is no acute intracranial hemorrhage or evidence of acute territorial infarction. Neither mass effect, shift of the midline structures, nor abnormal extra-axial fluid collections are shown. Imaged portions of the paranasal sinuses and mastoid air cells are clear. The orbits appear normal. There are no acute fractures of the calvaria or scalp swelling. Impression: No acute intracranial hemorrhage, no evidence of acute territorial infarction or other acute intracranial disease process. ACT 112: Negative or not required by law. Electronically signed by: Saturnino Parra M.D. 07/23/2022 7:10 AM Code Status & VTE Plan VTE Prophylaxis Plan VTE Prophylaxis will be ordered: Yes PG Care Time/CCT Total # of Minutes Spent Total Time Spent with Patient: Total time spent is greater than 50% in coordination of care (as documented) at patient's floor/unit and/or counseling patient: Coding Level of Care Code INT OBSERVATION CARE 50M LVL 2 Diagnoses Altered mental status R41.82 Acute and chronic respiratory failure with hypoxia J96.21 COPD (chronic obstructive pulmonary disease) J44.1 COPD type: COPD with acute exacerbation Elevated troponin level R77.8 Diabetes mellitus type 2, controlled, with complications E11.8 Hypothyroidism E03.9 Hypothyroidism type: acquired Hypertension I10 (1) Hypothyroidism Hypothyroidism type: acquired Qualified Code(s): E03.9 - Hypothyroidism, unspecified (2) COPD (chronic obstructive pulmonary disease) COPD type: COPD with acute exacerbation Qualified Code(s): J44.1 - Chronic obstructive pulmonary disease with (acute) exacerbation
[2022-07-23 07:54] LABS: Cast Urine Automated 0 /lpf (0-5); Mucus Urine Present (None Prsent)
[2022-07-23 07:55] LABS: Bacteria Urine Automated 1+ (Negative)
[2022-07-23] MEDS ORDERED: DEXTROSE 50% 50 ML SYRINGE IV PRN (07:55)
[2022-07-23] MEDS ORDERED: GLUCAGON FOR INJ 1 MG VIAL SQ PRN (07:55)
[2022-07-23] MEDS ORDERED: GLUCOSE 10 TAB/TUBE PO PRN (07:55)
[2022-07-23] MEDS ORDERED: GLUCOSE 40% GEL 15 GM TUBE PO PRN (07:55)
[2022-07-23] MEDS ORDERED: CARBOHYDRATES FOR HYPOGLYCEMIA PO PRN (07:55)
--- NOTE | 2022-07-23 08:37 | Hospitalist Progress Note ---
Date of Service July 23, 2022 Assessment & Plan (1) Altered mental status: Plan: Patient presents to ED brought in from [facility] with agitation and altered mental status. Patient's altered mental status most likely secondary to acute delirium likely from underlying COPD with CO@ retention and underlying dementia Continue oxygen supplementation. Based on discussions at in the ED with patient's daughter Joe confirmation made the patient is being evaluated for hospice placement secondary to his underlying end-stage COPD. Patient's daughter also requested patient to be DNR/DNI (2) Acute and chronic respiratory failure with hypoxia: Plan: Patient has underlying end-stage COPD Continue bronchodilators and oxygen supplementation as needed Avoid high-dose steroids as this could aggravate his underlying delirium at this point only given one dose in ER (3) COPD (chronic obstructive pulmonary disease): Plan: Patient has end-stage COPD. Family wishes patient to be placed in hospice based on discussions in ED with his daughter Joe. (4) Elevated troponin level: Plan: Patient has history of coronary artery disease and high sensitive troponin in ED was 37 but patient does not have any acute chest pain at this time Will check serial troponin levels to ensure there is no ongoing acute ischemia Patient noted to be on torsemide and nursing facility will check I's and O's Started Lasix IV 20 mg daily monitor volume status (5) Diabetes mellitus type 2, controlled, with complications: Plan: Patient will be placed on sliding scale coverage with short acting insulin based on fingerstick monitoring (6) Hypothyroidism: Plan: Continue home dose of levothyroxine Check TSH level (7) Hypertension: Plan: Continue home dose metoprolol Monitor blood pressure trend titrate meds as tolerated Admission and Anticipated Discharge Date Admission Date: July 23, 2022 Subjective Pt is confused, trying to get out of bed, is oriented x2, no focal complaints seems to have some improved delerium Review of Systems Review of Systems: Unobtainable due to cognitive status Physical Exam Physical Exam: The patient appeared chronically ill and confused Vital signs as documented. Head exam is normocephalic atraumatic Neck is without JVD, thyromegaly, or carotid bruits. Lungs coarse and diminished bilaterally Cardiac exam, Rhythm is regular.. No murmurs, rubs or gallops. Abdominal exam reveals normal bowel sounds, soft distended and non tender Extremities are 2+edematous and both pedal pulses are present Neurologic exam is alert and oriented, no focal loss of strength or sensation Skin is without bruises or rashes Psychologically is without concerns for anxiety or depression.. Results & Data Results & Data ([facility]) Vital Signs (Past 12 Hours) Vital Signs Pulse Resp BP Pulse Ox Pulse Ox O2 Del Method O2 Del Method 07/23/22 05:30 78 19 95 Nasal Cannula 07/23/22 05:30 188/95 H 07/23/22 05:20 187/96 H 07/23/22 05:20 88 22 95 Nasal Cannula 07/23/22 04:30 81 22 189/81 H 88 L Nasal Cannula 07/23/22 04:14 86 174/100 H 07/23/22 04:18 90 Nasal Cannula 07/23/22 02:17 93 H 21 178/75 H 90 Nasal Cannula 07/23/22 00:01 130/109 H 07/23/22 00:01 95 H 22 07/23/22 00:00 89 24 07/22/22 23:30 82 22 91 Nasal Cannula 07/22/22 23:30 145/81 H 07/22/22 23:20 168/66 H 07/22/22 23:20 88 91 Nasal Cannula 07/22/22 21:31 83 24 94 Nasal Cannula 07/22/22 21:31 153/69 H 07/22/22 21:25 84 24 89 L Nasal Cannula 07/22/22 21:09 156/53 H 07/22/22 21:09 86 30 H 91 Nasal Cannula O2 Flow Rate O2 Flow Rate 07/23/22 05:30 4 07/23/22 05:30 07/23/22 05:20 07/23/22 05:20 4 07/23/22 04:30 5.5 07/23/22 04:14 07/23/22 04:18 5.5 07/23/22 02:17 5 07/23/22 00:01 07/23/22 00:01 07/23/22 00:00 07/22/22 23:30 3 07/22/22 23:30 07/22/22 23:20 07/22/22 23:20 3 07/22/22 21:31 3 07/22/22 21:31 07/22/22 21:25 3 07/22/22 21:09 07/22/22 21:09 3 PG Care Time/CCT Total # of Minutes Spent Total Time Spent with Patient: Total time spent is greater than 50% in coordination of care (as documented) at patient's floor/unit and/or counseling patient: Coding Level of Care Code 14133 Subseq Hosp Care Lvl 3 Diagnoses Altered mental status R41.82 Acute and chronic respiratory failure with hypoxia J96.21 COPD (chronic obstructive pulmonary disease) J44.1 COPD type: COPD with acute exacerbation Elevated troponin level R77.8 Diabetes mellitus type 2, controlled, with complications E11.8 Hypothyroidism E03.9 Hypothyroidism type: acquired Hypertension I10 (1) Hypothyroidism Hypothyroidism type: acquired Qualified Code(s): E03.9 - Hypothyroidism, unspecified (2) COPD (chronic obstructive pulmonary disease) COPD type: COPD with acute exacerbation Qualified Code(s): J44.1 - Chronic obstructive pulmonary disease with (acute) exacerbation
[2022-07-23] MEDS ORDERED: ASPIRIN 81 MG ECTAB PO SCH (09:00)
[2022-07-23] MEDS ORDERED: LORazepam 2 MG/1 ML VIAL IV PRN ×2 (09:30→16:17)
[2022-07-23] MEDS ORDERED: HALOPERIDOL LACTATE 5 MG/ML 1 ML VIAL IV STA (09:30)
[2022-07-23] MEDS ORDERED: FUROSEMIDE 40 MG/4 ML VIAL IV ONE (09:33)
[2022-07-23] MEDS ORDERED: ASPIRIN 81 MG CHEW ONE (09:34)
[2022-07-23] MEDS ORDERED: HALOPERIDOL LACTATE 5 MG/ML 1 ML VIAL ONE (09:34)
[2022-07-23] MEDS ORDERED: FUROSEMIDE INJ 20 MG/2 ML VIAL IV ONE (09:54)
[2022-07-23] MEDS ORDERED: hydrALAZINE HCL 20 MG/ML VIAL IV PRN (10:20)
[2022-07-23] MEDS: INSULIN ASPART PER UNIT SC SCH ×3 (13:41→23:06)
[2022-07-23 15:59] LABS: Base Excess VBG 8.1 mEq/L; HCO3 VBG 41 mmol/L; Oxygen Saturation VBG < 60.0 %; PCO2 VBG 106 mmHg (38-50); PO2 VBG 21 mmHg; pH VBG 7.19 (7.36-7.41)
--- NOTE | 2022-07-23 17:30 | Electrocardiogram Report ---
Test Reason : Blood Pressure : / mmHG Vent. Rate : 077 BPM Atrial Rate : 087 BPM P-R Int : 000 ms QRS Dur : 088 ms QT Int : 404 ms P-R-T Axes : 000 -46 045 degrees QTc Int : 457 ms Poor data quality, interpretation may be adversely affected Atrial fibrillation Left axis deviation Low voltage QRS Cannot rule out Anterior infarct (cited on or before 24-MAR-2018) Abnormal ECG When compared with ECG of 07-JUL-2022 22:20, Non-specific change in ST segment in Anterior leads Confirmed by Lucien Thompson ([id number] on 07/23/2022 5:29:48 PM Referred By: [facility] Confirmed By:Triston Thompson
[2022-07-23] MEDS ORDERED: SODIUM CHLORIDE 0.9% 1000ML 1,000 ML IV SCH (19:00)
[2022-07-23] MEDS ORDERED: MIRTAZAPINE TAB 15 MG TAB PO SCH (21:00)
[2022-07-23] MEDS ORDERED: OLANZapine 5 MG TABLET PO SCH (21:00)
[2022-07-23] MEDS ORDERED: ATORVASTATIN 40 MG TAB PO SCH (21:00)
[2022-07-23] MEDS ORDERED: MELATONIN 3 MG TAB PO SCH (21:00)
[2022-07-24 04:48] VITALS: TEMP 98.2
[2022-07-24] MEDS: AZITHROMYCIN 500 MG in DEXTROSE 5% 250 ML IV SCH (05:03)
[2022-07-24] MEDS ORDERED: LEVOTHYROXINE SODIUM 50 MCG TABLET PO SCH (06:30)
[2022-07-24 06:33] LABS: Base Excess VBG 4.7 mEq/L; HCO3 VBG 37 mmol/L; Oxygen Saturation VBG < 60.0 %; PCO2 VBG 98 mmHg (38-50); PO2 VBG 31 mmHg; pH VBG 7.18 (7.36-7.41)
[2022-07-24 07:21] LABS: Estimated Average Glucose 140 mg/dl; Hemoglobin A1C 6.5 % (4.5-5.6)
[2022-07-24 07:26] VITALS: O2SAT 95
[2022-07-24 07:49] VITALS: BP 154/104; PULSE 72
[2022-07-24] MEDS: INSULIN ASPART PER UNIT SC SCH (09:06)
--- NOTE | 2022-07-24 09:44 | Palliative Care Consultation ---
Date of Consultation July 24, 2022 Assessment & Plan (1) Palliative care encounter: Patient has terminal COPD, he was in the process of reportedly being admitted to hospice when [facility] called EMS for what seems to be general symptoms of terminal COPD. Patient improved with straightforward EMS interventions with oxygen, then he had some resp treatments in the ED and was deemed stable to return to [facility] by our ED physicians but [facility] staff refused to take him back, citing his AMS as the reason. This led to current admission. Would note that patient's AMS was from terminal COPD progression, resp failure and dyspnea crisis. This is what hospice is going to help manage and frankly, should be something that any usp caring for patients with advanced, chronic medical illness + advanced age + declining PS should be able to manage, as usp are often the final location for end of life care. Patient is NOT a rehab candidate. He has terminal COPD, he is EOL and needs the hospice admission expedited to usp. He is medically stable for return to usp. There should be no issues for them to accept their existing patient back and their workloads and staffing already have his presence factored in to their daily schedules. (2) Encounter for end of life care: ACP/GOC discussions x 30 min: Called patient's son Odin at [phone]. We reviewed patient's current status and symptom presentation. I provided some education about the nature of advanced COPD and terminal stages and the symptoms patients may experience. Currently what patient is experiences consistent with end-of-life advanced respiratory failure. Son asked that we call patient's and provides a new cell phone which he does not know was placed in the chart--cell [phone]. I then called patient's at the provided #[phone]. She states that she had a recent fall and was seen in the emergency room herself. She was given some additional pain medication which she feels has made her unusually tired. She states that a few days ago she signed paperwork to admit patient to [facility] hospice and this was supposed to be initiated at the usp. She also states that staff at the usp told her patient was not welcome back due to his agitation and restlessness. She is both dismayed, anxious and very distressed with the notion that patient will not have a place to go. She shares that her goal for patient at this point is purely comfort. She does not want him to suffer. She knows that he has a terminal lung disease and for this reason she was ready to admit him to hospice. She is frustrated by the lack of communication with the usp who sent him to the emergency room where they could have called hospice to try and help manage him at the usp. Patient's had several questions about the process for disposition planning at this point. She will advise of care management investigating the status of his hospice admission at the usp as well as whether or not he can return there. Our admitting notes indicate that we were advised by the usp his symptoms needed to be controlled before he could return. Family however is very clear in their perception that they were advised that the usp patient cannot return at all. Care management will assist with clarifying this. I have notified both nursing and primary team. We discussed adding hospice to his care: we spoke about how hospice at SNF will provide an extra layer of support for managing the symptoms of COPD. They improve quality of life for patients and their families by addressing social, spiritual and practical issues. I have provided education about the option of hospice for advanced COPD, noting that living with COPD can be difficult suman as disease progresses/PS declines plus we know it can be equally challenging for caregivers, but you don't have to face the challenges alone. We discussed how hospice and palliative care both offer relief from the pain and symptoms of COPD. Both can address the mental, social and spiritual needs of a patient. In fact, hospice is a type of palliative care during the final stage of life. I advised her pt meets the hospice eligibility guidelines for COPD/lung disease (outlined below for reference if needed): Major characteristics a. Dyspnea at rest and/or with minimal exertion while on oxygen therapy b. Dyspnea unresponsive or poorly responsive to bronchodilator therapy c. Progression of chronic pulmonary disease as evidenced by one or more of the following: d. Frequent use of medical services, including hospitalizations, ED visits and/or physician outpatient visits, due to symptoms of pulmonary disease e. Frequent episodes of bronchitis or pneumonia f. Unintentional weight loss of >=10 percent body weight over the preceding six months g. Progressive inability to independently perform various activities of daily living (ADLs) or an increasing dependency with ADLs, resulting in a progressively lower performance status Other important critical factors h. Cor pulmonale i. Continuous chronic oxygen therapy j. Resting tachycardia > 100/minute k. Steroid-dependent l. Cyanosis Abnormal laboratory findings: While these laboratory studies may be helpful to the clinician when considering patient appropriateness for hospice services, they are not required for patient admission. a. FEV1 <=30 percent predicted post-bronchodilator b. Serial decreases in FEV1 of at least 40 ml/year over several years c. PO2 <=55 on room air d. O2 sat. <=88 percent on room air e. Persistent hypercarbia (PCO2) >=50 Patient's family is unanimously in agreement to proceed with a comfort plan of care. They would appreciate very much if he could return to his usp where he knows the staff and continue there until the end of his life with the addition of hospice. They are very frustrated by what they perceive as mixed messages, having been told by the usp he cannot return there at all but our providers have not been advised by the usp he cannot return until his symptoms were improved. Care management is going to contact the usp to determine some clarity on this issue. For now, we will initiate a comfort plan of care. Orders have been written. Patient will be transferred to [facility] in a private room. (3) COPD, very severe: Pt has terminal COPD. Dying patients fear dyspnea and pain, therefore, symptom control is one cornerstone of pulmonary palliative care. Dyspnea is a prominent symptom of the patient with advanced respiratory disease of any cause: nearly all patients with COPD had dyspnea during the last 3 days of their lives. The ATS recognizes: the growing importance and complexity of palliative care for patients with life-threatening and life-limiting diseases and disorders and the need for improving professional competence and teamwork in providing such care. The statement strongly endorses the concept that palliative care should be available to patients at all stages of illness and should be individualized based on the needs and preferences of the patient and the patients family. (ATS Clinical Policy Statement: Palliative Care for Patients with Respiratory Diseases and Critical Illnesses; Marti Cunningham et al., for the [employer], the [place] [employer], the [place] [employer], and the Respiratory Society* Diagnosis and Management of Stable Chronic Obstructive Pulmonary Disease: A Clinical Practice Guideline Update from the [employer], [employer] [employer], [place] [employer], and Respiratory Society . Arac[employer] Med. 2011;[id number].) (4) Dyspnea and respiratory abnormalities: due to #3 Plan Patient is NOT a rehab candidate. He has terminal COPD, he is EOL and needs the hospice admission expedited to usp. He is medically stable for return to usp with hospice; there should be no issues for them to accept their existing patient back and their workloads and staffing already have his presence factored in to their daily schedules. I recommend continuing with hospice as already underway. I would suggest timing his return with hospice nurse arrival to assure a smooth transition and prevent [facility] staff from not being supported to manage his symptoms of terminal COPD. History of Present Illness Reason for Consultation: "Hospice" Attending Physician: Alyssa Williamson MD History of Present Illness Palliative medicine has been consulted to see this pt for hospice. Admitting notes indicate the following: "Patient presents to ED brought in from [facility] with agitation and altered mental status. Patient's altered mental status most likely secondary to acute delirium likely from underlying COPD with CO@ retention and underlying dementia Continue oxygen supplementation. Based on discussions at in the ED with patient's daughter Joe confirmation made the patient is being evaluated for hospice placement secondary to his underlying end-stage COPD. Patient's daughter also requested patient to be DNR/DNI" Bryn was sent to our ED by his usp, [facility], for +AMS and agitation. The chart review indicates he was evaluated for hospice the day before admission due to his very severe COPD but because of AMS and agitation with desats, the usp called EMS, who evaluated pt and started some oxygen. This improved his symptoms and he calmed down. He was stable for return to usp at this time however when our ED physician reached out to [facility] to receive the patient back, [facility] refused on the premise of "they were unable to take the patient back due to his agitation and delirium state." Because [facility] refused to take their stable patient back, which in turn required observation admission for his {fully resolved and consistent with end of life changes of} terminal COPD. PMH: severe COPD, hypertension, diabetes, CKD 3, hypothyroidism Patient is seen bedside, there is no family present at the time of my visit. He is slightly agitated. There is increased respiratory effort noted. He is not awake or alert. He cannot provide HPI. Allergies Allergy/AdvReac Type Severity Reaction Status Date / Time morphine Allergy Intermediate DELUSIONS, Verified 07/22/22 19:46 "LOSES TIME" adhesive Allergy Mild RASH Verified 07/22/22 19:46 latex AdvReac Intermediate BLISTERS Verified 07/22/22 19:46 SKIN Home Medications Medication Instructions Recorded Confirmed Type allopurinol 300 mg tablet 300 mg PO QAM #90 tabs 10/10/21 07/22/22 Rx gabapentin 100 mg capsule 100 mg PO AMPM 01/14/22 07/22/22 History levothyroxine 50 mcg tablet 50 mcg PO .COMPLEX #45 tabs 02/13/22 07/22/22 Rx levothyroxine 75 mcg tablet 75 mcg PO .COMPLEX #45 tabs 02/13/22 07/22/22 Rx apixaban 5 mg tablet 5 mg PO BID #60 tabs 05/21/22 07/22/22 Rx atorvastatin 40 mg tablet 40 mg PO QPM #30 tabs 05/21/22 07/22/22 Rx mirtazapine 7.5 mg tablet 7.5 mg PO HS 06/10/22 07/22/22 History cholestyramine-aspartame 4 gram 4 g PO BID@1000,2200 #60 ea 07/02/22 07/22/22 Rx oral powder for susp in a packet (Prevalite) polyvinyl alcohol 1.4 % eye drops 2 drp ophthalmic (eye) QID #15 mL 07/02/22 07/22/22 Rx (Artificial Tears (polyvinyl alcohol)) ipratropium 20 mcg-albuterol 100 2 puff inhalation Q6H PRN 07/08/22 07/22/22 History mcg/actuation mist for inhalation Shortness Of Breath (Combivent Respimat) potassium chloride 20 mEq 40 meq PO BID 07/08/22 07/22/22 History tablet,extended release torsemide 20 mg tablet 60 mg PO BID 07/08/22 07/22/22 History cholecalciferol (vitamin D3) 50 50 mcg PO DAILY 07/22/22 07/22/22 History mcg (2,000 unit) capsule (Vitamin D3) docusate sodium 100 mg capsule 100 mg PO BID 07/22/22 07/22/22 History isosorbide mononitrate 120 mg 120 mg PO DAILY 07/22/22 07/22/22 History tablet,extended release 24 hr melatonin 3 mg tablet 3 mg PO HS 07/22/22 07/22/22 History metoprolol succinate 100 mg 100 mg PO QAM 07/22/22 07/22/22 History tablet,extended release 24 hr metoprolol succinate 50 mg 50 mg PO QAM 07/22/22 07/22/22 History tablet,extended release 24 hr multivitamin (Daily-Radha tablet) 1 tab PO DAILY 07/22/22 07/22/22 History Patient History Medical History (Updated 07/24/22 @ 10:50 by Alyssa Williamson MD) Allergic rhinitis Arthritis BPH (benign prostatic hyperplasia) Cardiomyopathy Chronic kidney disease, stage 3 Chronic obstructive pulmonary disease Claustrophobia Congestive heart failure [facility] COPD (chronic obstructive pulmonary disease) COPD, very severe Diabetic nephropathy associated with type 2 diabetes mellitus Dyspnea and respiratory abnormalities Encounter for end of life care Hearing deficit 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 YEAR 10 YEARS AGO History of bronchoscopy History of cardiac cath NO STENTS History of cataract surgery rt/left History of colonoscopy History of ear surgery LEFT MASTOIDECTOMY (DEAF IN LEFT EAR) History of tonsillectomy History of tooth extraction History of total knee replacement RT S/P cholecystectomy Family History Son Colon cancer Coronary heart disease Sister Hypothyroidism Lymphoma Stroke Mother Aortic aneurysm Diabetes Father Heart disease Myocardial infarction Sister Liver problem Other Hypertension Denies family history of Ovarian cancer Prostate cancer Breast cancer Social History Smoking Status: Never smoker Tobacco Type: Cigarettes Age Started Using Tobacco: 16; Age Quit Using Tobacco: 39; packs per day: 5; Second Hand Exposure: No; Hx Alcohol Use: Yes Hx Substance Use: No Preferred Language: Kyrgyz Communication Ability: Unable Visual Impairment: No Limitations Hearing Ability: 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 of 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 Aid 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 Fashion Accessories Required: No Beliefs That Will Affect Care: None marital status: Current Living Situation: [facility] current occupational status: retired 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 increased respiratory effort, appears uncomfortable. Lungs diminished throughout, +use of accessory muscles and abd breathing noted. tachy+, no JVD. abd protuberant, BS +, extremities with generalized weakness, unable to follow commands, skin pale/cool to touch. Results & Data ([facility]) Vital Signs (Past 12 Hours) Vital Signs Temp Pulse Pulse Resp BP BP Pulse Ox 07/24/22 07:00 72 18 154/104 H 96 07/24/22 07:23 69 25 H 95 07/23/22 22:18 78 07/24/22 04:46 74 20 07/24/22 04:46 157/85 H 07/24/22 04:42 83 07/24/22 04:30 80 28 H 07/24/22 04:00 75 17 07/24/22 03:30 74 22 07/24/22 03:00 72 14 07/24/22 02:30 70 20 07/24/22 02:00 90 07/24/22 01:30 66 18 07/24/22 01:00 65 16 07/24/22 00:30 69 18 07/24/22 00:00 77 16 07/23/22 23:30 75 23 07/23/22 23:00 78 17 07/23/22 22:30 77 23 07/23/22 22:00 73 21 07/23/22 21:49 178/95 H 07/23/22 21:49 74 21 96 07/24/22 04:48 36.8 C 98 07/24/22 01:58 O2 Del Method O2 Flow Rate FiO2 07/24/22 07:00 BiPAP 6 07/24/22 07:23 50 07/23/22 22:18 07/24/22 04:46 07/24/22 04:46 07/24/22 04:42 07/24/22 04:30 07/24/22 04:00 07/24/22 03:30 07/24/22 03:00 07/24/22 02:30 07/24/22 02:00 07/24/22 01:30 07/24/22 01:00 07/24/22 00:30 07/24/22 00:00 07/23/22 23:30 07/23/22 23:00 07/23/22 22:30 07/23/22 22:00 07/23/22 21:49 07/23/22 21:49 07/24/22 04:48 BiPAP 50 07/24/22 01:58 Oxymask 6 PG Care Time/CCT Total # of Minutes Spent Total Time Spent: 80 Total Time Spent with Patient: Total time spent is greater than 50% in coordination of care (as documented) at patient's floor/unit and/or counseling patient: Prolonged Care Time Prolonged Care Time: Yes Advanced Care Planning 07918 Advanced Care Planning 30 [place] [address] Inpt Consult Level 5 Patient Type New History Detailed Exam Detailed Medical Decision Making High Complexity Diagnoses Palliative care encounter Z51.5 Encounter for end of life care Z51.5 COPD, very severe J44.9 Dyspnea and respiratory abnormalities R06.00; R06.89 Additional Codes Prolonged Care Time - Prolonged Care Time: Yes ([id number]) Advanced Care Planning - 16546 Advanced Care Planning 30 Min: 79833 Advanced Care Planning 30 Min ([id number])
--- NOTE | 2022-07-24 10:48 | Hospitalist Progress Note ---
Date of Service July 24, 2022 Assessment & Plan (1) Comfort measures only status: Plan: Due to end stage COPD with severe agitation, hypercapnic and hypoxic resp failure Appreciate Palliaitive Med consult transfer to med/surg on [facility] start morphine, ativan prn, other orders as per Palliative removed BiPAP already and O2 for comfort no labs (2) Acute metabolic encephalopathy: Plan: 2/2 hypercapnic resp failure transition to [facility] (3) Acute and chronic respiratory failure with hypoxia: Plan: With acute on chronic respiratory failure with hypoxia and hypercapnia. Patient has underlying end-stage COPD [facility] now (4) COPD (chronic obstructive pulmonary disease): Plan: Patient has end-stage COPD. Family wishes patient to be placed in hospice based on discussions in ED with his daughter Joe as well as on phone with Palliative Med (5) Elevated troponin level: Plan: Patient has history of coronary artery disease and high sensitive troponin in ED was 37 likely was demand ischemia from hypoxia dc all diuretics and cardiac meds (6) Diabetes mellitus type 2, controlled, with complications: Plan: dc insulin and accuchecks on [facility] (7) Hypothyroidism: Plan: dc home levothyroxine (8) Hypertension: Plan: dc BP meds Plan Dispo-downgrade to med/surg on [facility], CM aware and plans to return to [facility] with hospice once symptoms better managed for EOL Admission and Anticipated Discharge Date Admission Date: July 23, 2022 Subjective Pt obtunded, had ripped his BiPAP off into four pieces overnight, with severe agitation. Remains hypercapnic this AM. Now on OxyMask. Discussed care with Palliative Medicine. Palliative d/w on phone and plan to place on [facility]ESSER. Review of Systems Review of Systems: Unobtainable due to cognitive status and Unobtainable due to reduced consciousness Physical Exam Constitutional: WD/WN, vitals as above ENMT: O2 mask in place Neck: trachea midline, no thyromegaly Respiratory: + tachypneic; no cough Auscultation: no crackles, no rhonchi and no wheezes Cardiovascular: Rate/Rhythm: regular rate and + irregularly irregular Extremities: + edema (2+ pitting edema legs bilat) Gastrointestinal (Abdomen): normal bowel sounds, soft, nontender, no hepatosplenomegaly Musculoskeletal: Extremities: no cyanosis and no clubbing Skin: legs with dry skin, chronic venous stasis changes Neurologic: + obtunded Results & Data Results & Data ([facility]) Vital Signs (Past 12 Hours) Vital Signs Temp Pulse Pulse Resp BP BP Pulse Ox 07/24/22 07:00 72 18 154/104 H 96 07/24/22 07:23 69 25 H 95 07/24/22 04:46 74 20 07/24/22 04:46 157/85 H 07/24/22 04:42 83 07/24/22 04:30 80 28 H 07/24/22 04:00 75 17 07/24/22 03:30 74 22 07/24/22 03:00 72 14 07/24/22 02:30 70 20 07/24/22 02:00 90 07/24/22 01:30 66 18 07/24/22 01:00 65 16 07/24/22 00:30 69 18 07/24/22 00:00 77 16 07/23/22 23:30 75 23 07/23/22 23:00 78 17 07/24/22 04:48 36.8 C 98 07/24/22 01:58 O2 Del Method O2 Flow Rate FiO2 07/24/22 07:00 BiPAP 6 07/24/22 07:23 50 07/24/22 04:46 07/24/22 04:46 07/24/22 04:42 07/24/22 04:30 07/24/22 04:00 07/24/22 03:30 07/24/22 03:00 07/24/22 02:30 07/24/22 02:00 07/24/22 01:30 07/24/22 01:00 07/24/22 00:30 07/24/22 00:00 07/23/22 23:30 07/23/22 23:00 07/24/22 04:48 BiPAP 50 07/24/22 01:58 Oxymask 6 Laboratory Results 07/24/22 07/24/22 07/24/22 Range/Units Unknown 09:51 07:23 VBG pH (7.36-7.41) VBG pCO2 (38-50) mmHg VBG pO2 mmHg VBG HCO3 mmol/L VBG O2 Saturation % VBG Base Excess mEq/L Sodium Pending Potassium Pending Chloride Pending Carbon Dioxide Pending Anion Gap Pending BUN Pending Creatinine Pending Est Cr Clr Drug Dosing Pending Est GFR ( Amer) Pending Est GFR (Non-Af Amer) Pending BUN/Creatinine Ratio Pending Glucose Pending POC Glucose 162 H (70-99) mg/dl Estimat Average Glucose mg/dl Hemoglobin A1c (4.5-5.6) % Calcium Pending Magnesium Pending Total Bilirubin Pending AST Pending ALT Pending Alkaline Phosphatase Pending Troponin I High Sens Pending Total Protein Pending Albumin Pending Globulin Pending Albumin/Globulin Ratio Pending Nasal Screen MRSA (PCR) Negative (Negative) 07/24/22 07/24/22 07/23/22 Range/Units 06:25 06:25 21:17 VBG pH 7.18 L (7.36-7.41) VBG pCO2 98 H (38-50) mmHg VBG pO2 31 mmHg VBG HCO3 37 mmol/L VBG O2 Saturation < 60.0 % VBG Base Excess 4.7 mEq/L Sodium Potassium Chloride Carbon Dioxide Anion Gap BUN Creatinine Est Cr Clr Drug Dosing Est GFR ( Amer) Est GFR (Non-Af Amer) BUN/Creatinine Ratio Glucose POC Glucose 141 H (70-99) mg/dl Estimat Average Glucose 140 mg/dl Hemoglobin A1c 6.5 H (4.5-5.6) % Calcium Magnesium Total Bilirubin AST ALT Alkaline Phosphatase Troponin I High Sens Total Protein Albumin Globulin Albumin/Globulin Ratio Nasal Screen MRSA (PCR) (Negative) 07/23/22 07/23/22 07/23/22 Range/Units 17:09 15:48 13:05 VBG pH 7.19 L (7.36-7.41) VBG pCO2 106 H (38-50) mmHg VBG pO2 21 mmHg VBG HCO3 41 mmol/L VBG O2 Saturation < 60.0 % VBG Base Excess 8.1 mEq/L Sodium Potassium Chloride Carbon Dioxide Anion Gap BUN Creatinine Est Cr Clr Drug Dosing Est GFR ( Amer) Est GFR (Non-Af Amer) BUN/Creatinine Ratio Glucose POC Glucose 151 H 209 H (70-99) mg/dl Estimat Average Glucose mg/dl Hemoglobin A1c (4.5-5.6) % Calcium Magnesium Total Bilirubin AST ALT Alkaline Phosphatase Troponin I High Sens Total Protein Albumin Globulin Albumin/Globulin Ratio Nasal Screen MRSA (PCR) (Negative) PG Care Time/CCT Total # of Minutes Spent Total Time Spent with Patient: Total time spent is greater than 50% in coordination of care (as documented) at patient's floor/unit and/or counseling patient: Coding Level of Care Code 72581 Subseq Hosp Care Lvl 2 Diagnoses Comfort measures only status Z51.5 Acute metabolic encephalopathy G93.41 Acute and chronic respiratory failure with hypoxia J96.21 COPD (chronic obstructive pulmonary disease) J44.1 COPD type: COPD with acute exacerbation Elevated troponin level R77.8 Diabetes mellitus type 2, controlled, with complications E11.8 Hypothyroidism E03.9 Hypothyroidism type: acquired Hypertension I10 (1) COPD (chronic obstructive pulmonary disease) COPD type: COPD with acute exacerbation Qualified Code(s): J44.1 - Chronic obstructive pulmonary disease with (acute) exacerbation (2) Hypothyroidism Hypothyroidism type: acquired Qualified Code(s): E03.9 - Hypothyroidism, unspecified
[2022-07-24] MEDS ORDERED: LORazepam 2 MG/1 ML VIAL IV PRN (10:51)
[2022-07-24] MEDS ORDERED: GLYCOPYRROLATE 0.2 MG/ML VIAL IV PRN (10:51)
[2022-07-24] MEDS ORDERED: HYDROmorphone INJ 0.5 MG/0.5 ML SYR IV PRN ×2 (10:53→13:29)
[2022-07-24 11:28] LABS: Albumin Globulin Ratio 1.1 (0.9-2); Albumin Level 3.5 gm/dl (3.4-5.0); Bilirubin,Total 0.9 mg/dl (0.2-1.0); Calcium 9.1 mg/dl (8.5-10.1); Creatinine Clr Calc Pharmacy 32.3 ml/min; Est GFR (African American) 30.4 ml/min; Est GFR (Non-African American) 26.3 ml/min; Globulin 3.2 gm/dl (2.5-4.0); Magnesium 2.3 mg/dl (1.7-2.4); Potassium 6.1 mmol/L (3.5-5.1); Total Protein 6.7 gm/dl (6.0-8.3); Troponin I High Sensitivity 41.1 pg/ml (0-20)
[2022-07-24] MEDS: APIXABAN 5 MG TABLET PO SCH (11:29)
[2022-07-24] MEDS: HYDROmorphone INJ 1 MG/ML SYRINGE IV PRN (12:03)
[2022-07-24] MEDS: allopurinoL 300 MG TAB PO SCH (13:22)
[2022-07-24] MEDS: ARTIFICIAL TEARS OP SCH ×3 (13:22→20:22)
[2022-07-24] MEDS: ISOSORBIDE MONO EXTENDED REL 60 MG TABCR PO SCH (13:22)
[2022-07-24] MEDS: DOCUSATE SODIUM 100 MG CAP PO SCH (13:22)
[2022-07-24] MEDS: METOPROLOL SUCC 50MG EXT REL TAB PO SCH ×2 (13:23)
[2022-07-24] MEDS: OLANZapine 5 MG TABLET PO SCH (20:23)
[2022-07-25] MEDS: HYDROmorphone INJ 1 MG/ML SYRINGE IV PRN (02:39)
[2022-07-25] MEDS: ARTIFICIAL TEARS OP SCH ×2 (09:21→12:24)
[2022-07-25] MEDS: OLANZapine 5 MG TABLET PO SCH (09:22)
--- NOTE | 2022-07-25 09:52 | Discharge Summary ---
Date of Service July 25, 2022 Admission HPI Per Admitting Provider This is a 81-year-old male with past medical history significant story of severe COPD, hypertension, diabetes, CKD 3, hypothyroidism lives in [facility] who was sent to the emergency department with complaints of worsening agitation. Patient is a challenging historian majority history is obtained from chart review and ED report. Patient has advanced COPD and has been evaluated for hospice placement yesterday and subsequent to this process patient became agitated which caused worsening shortness of breath and drop in oxygen saturation and hence EMS was summoned. As per EMS reports patient's o xygen saturation was in the 80s and it responded to oxygen supplementation and patient was brought into ED for further evaluation. Upon arrival to the ED patient oxygen saturation improved and oxygen saturations was in the 90s when he became calmer. After respiratory treatments patient was stable to be discharged back to the facility and when ED physician reached out to [facility] to receive the patient back they had informed that they were unable to take the patient back due to his agitation and delirium state. Patient's family was contacted from ED and after multiple attempts with case management and family it was decided the patient will be placed in observation for his COPD delirium and accompanying delirium. Patient otherwise does not have any chest pain or cough or palpitations at this time. Principal Diagnosis Acute on chronic respiratory failure with hypoxia and hypercapnia Discharge Exam Constitutional obtunded on fisrt visit. and pronounced on second visit Neck trachea midline, no thyromegaly Respiratory no labored breathing and no cough Cardiovascular Rate/Rhythm: regular rate and + irregularly irregular Extremities: + edema (2+ pitting edema legs bilat) Gastrointestinal (Abdomen) normal bowel sounds, soft, nontender, no hepatosplenomegaly Musculoskeletal Extremities: no cyanosis and no clubbing Neurologic + obtunded Discharge Data Allergies Allergy/AdvReac Type Severity Reaction Status Date / Time morphine Allergy Intermediate DELUSIONS, Verified 07/22/22 19:46 "LOSES TIME" adhesive Allergy Mild RASH Verified 07/22/22 19:46 latex AdvReac Intermediate BLISTERS Verified 07/22/22 19:46 SKIN Consultations 07/22/22 23:03 ED Decision to Admit Stat 07/24/22 08:56 Consult Palliative Care Routine Ordered Studies 07/22/22 20:26 CT head/brain wo con Urgent Hospital Course (1) Comfort measures only status: Due to end stage COPD with severe agitation, acute on chronic hypercapnic and hypoxic resp failure Appreciate Palliiative Med consult transferred to med/surg on [employer] gave dilaudid prn breathlessness, ativan prn removed BiPAP already and O2 for comfort no labs at 1250 PM on 07/25/22 with family at bedside (2) Respiratory failure with hypoxia and hypercapnia: (3) Acute metabolic encephalopathy: 2/2 hypercapnic resp failure (4) Acute and chronic respiratory failure with hypoxia: With acute on chronic respiratory failure with hypoxia and hypercapnia. Patient has underlying end-stage COPD (5) COPD (chronic obstructive pulmonary disease): end-stage COPD. (6) Elevated troponin level: Patient has history of coronary artery disease and high sensitive troponin in ED was 37 likely was demand ischemia from hypoxia (7) Diabetes mellitus type 2, controlled, with complications: dc insulin and accuchecks on [employer] (8) Hypothyroidism: dc home levothyroxine (9) Hypertension: dc BP meds Plan Total Time Total Time Spent Total Time Spent (In Minutes): 20 min Discharge Plan Discharge Items Patient Disposition: Hospice - Medical Facility Reason For Visit: CONFUSION, COPD Discharge Diagnosis: End stage COPD with agitation and acute on chronic respiratory failure with hypoxia and hypercapnia Condition on Discharge: Serious Activity: As commented below Bathing: No limitations Exercise/Sports: None and Rest today Non-emergency contact: Primary Care Provider Call non-emergency contact if: you have any medication questions and your symptoms worsen [facility] - Diet: Nothing by Mouth Addtl Attending Provider Instructions: You are returning back to your [facility] with hospice. You can take morphine drops by mouth for breathlessness and lorazepam for agitation as needed. Oxygen can be given for comfort. Pending Studies at Discharge: No Stand-Alone Forms: [facility] Items Patient informed of condition?: No DNR: Yes Discharge Level of Care: Other Communicable Disease: No Discharge Prognosis: Deteriorating Lines: None Urinary Catheter: Yes Medications and DC Order Prescriptions: New morphine concentrate 100 mg/5 mL (20 mg/mL) solution 5 mg PO Q4H PRN (Reason: pain or breathlessness) Qty: 30 0RF lorazepam 1 mg tablet 1 mg sublingual Q6H PRN (Reason: anxiety) Qty: 7 0RF Rx Instructions: Can be crushed and mixed with water for slurry and placed under tongue Discontinued allopurinol 300 mg tablet 300 mg PO QAM Qty: 90 3RF levothyroxine 75 mcg tablet 75 mcg PO .COMPLEX Qty: 45 3RF Rx Instructions: 75 mcg PO every other day, rotating with 50mcg tabs; levothyroxine 50 mcg tablet 50 mcg PO .COMPLEX Qty: 45 3RF Rx Instructions: 50 mcg PO every other day, rotating with 75mcg tabs; gabapentin 100 mg capsule 100 mg PO AMPM apixaban 5 mg tablet 5 mg PO BID Qty: 60 5RF atorvastatin 40 mg tablet 40 mg PO QPM Qty: 30 5RF torsemide 20 mg Tablet 60 mg PO BID potassium chloride 20 mEq Tablet Extended Release 40 meq PO BID Combivent Respimat 20-100 mcg/actuation Mist 2 puff INHALATION Q6H PRN (Reason: Shortness Of Breath) mirtazapine 7.5 mg tablet 7.5 mg PO HS Rx Instructions: 7.5 mg orally at bedtime; polyvinyl alcohol [Artificial Tears (polyvin alc)] 1.4 % Drops 2 drp ophthalmic (eye) QID Qty: 15 0RF cholestyramine-aspartame [Prevalite] 4 gram Powder In Packet 4 g PO BID@1000,2200 Qty: 60 0RF multivitamin [Daily-Radha] Tablet 1 tab PO DAILY metoprolol succinate 100 mg tablet extended release 24 hr 100 mg PO QAM Rx Instructions: TOTAL DOSE 150 MG--TAKES WITH 50 MG TAB. melatonin 3 mg Tablet 3 mg PO HS isosorbide mononitrate 120 mg Tablet Extended Release 24 Hr 120 mg PO DAILY docusate sodium 100 mg Capsule 100 mg PO BID cholecalciferol (vitamin D3) [Vitamin D3] 50 mcg (2,000 unit) Capsule 50 mcg PO DAILY metoprolol succinate 50 mg tablet extended release 24 hr 50 mg PO QAM Rx Instructions: TOTAL DOSE 150 MG--TAKES WITH 100 MG TAB. Admission Data Admit Date/Time: 07/23/22 11:49 Attending Provider: Alyssa Williamson Admit Provider: Manjeet Jaquze Primary Care Provider: TAMICA Diamond Other Providers: Manjeet Jaquez ; Kendra Cobb Coding Level of Care Code D/C DAY MANAGEMENT <30 MINS Diagnoses Comfort measures only status Z51.5 Respiratory failure with hypoxia and hypercapnia J96.91; J96.92 Acute metabolic encephalopathy G93.41 Acute and chronic respiratory failure with hypoxia J96.21 COPD (chronic obstructive pulmonary disease) J44.1 COPD type: COPD with acute exacerbation Elevated troponin level R77.8 Diabetes mellitus type 2, controlled, with complications E11.8 Hypothyroidism E03.9 Hypothyroidism type: acquired Hypertension I10
--- NOTE | 2022-07-25 13:46 | Death Pronouncement Note ---
Date of Service July 25, 2022 Pronouncement Note Admission Date July 23, 2022 Date and Time of Date of : 07/25/22 Time of : 12:50 Preliminary Cause of (1) Respiratory failure with hypoxia and hypercapnia: (2) COPD (chronic obstructive pulmonary disease): COPD type: COPD with acute exacerbation Qualified Code(s): J44.1 - Chronic obstructive pulmonary disease with (acute) exacerbation Contributing Factors see discharge summary Summary see discharge summary Additional Data Confirmation of : no pulse, no respirations, no heart sounds and pupils fixed and dilated Family: at bedside Attending/PCP notified?: Yes Attending physician: Alyssa Williamson MD Was code activated?: No Autopsy requested?: No Coding Level of Care Code None Diagnoses Respiratory failure with hypoxia and hypercapnia J96.91; J96.92 COPD (chronic obstructive pulmonary disease) J44.1 COPD type: COPD with acute exacerbation
== END 2022-07-25 14:20 | disposition expired | DRG 189 ==
LOC: EDINP 19:09 → ED 19:09 → EDINP 07-23 04:06 → SUATTDRO 07-23 11:49 → 2E 07-23 21:13 → 3W 07-24 17:38